=== PATIENT | female | born 1940 | race Caucasian/White ===

== ENCOUNTER 2017-08-25 09:15 | Outpatient (RCR) | payer SELFPAY ==
[2017-08-16 00:29] VITALS: BP 124/60; BP 144/70
== END 2017-09-15 23:59 ==
LOC: CR 09:15
PROVIDERS: Family Provider Family Medicine; PCP Family Medicine; Visit Provider Internal Medicine Cardiovascular Disease
DX: I25.10 Atherosclerotic heart disease of native coronary artery without angina pectoris (principal); I21.4 Non-ST elevation (NSTEMI) myocardial infarction
CPT/HCPCS: 93798

== ENCOUNTER → 2017-10-04 11:17 | Outpatient (CLI) | payer MEDICARE, SELFPAY ==
[2017-08-25 14:04] VITALS: BP 110/66; BMI 37.9
[2017-09-16 00:29] VITALS: BP 124/60; BP 144/70
== END ==
PROVIDERS: Family Provider Family Medicine; PCP Family Medicine; Visit Provider Internal Medicine Cardiovascular Disease
DX: I25.118 Atherosclerotic heart disease of native coronary artery with other forms of angina pectoris (principal)

== ENCOUNTER 2017-10-04 11:23 | Outpatient (RCR) | payer MEDICARE, SELFPAY ==
[2017-10-04 12:05] LABS: International Normalized Ratio 2.7; Prothrombin Time (Protime)PT. 27.3 SECONDS (11.7-14.9)
== END 2017-10-04 11:24 | disposition home or self-care (01) ==
LOC: LAB 11:23
PROVIDERS: Family Provider Family Medicine; PCP Family Medicine; Visit Provider Internal Medicine Cardiovascular Disease
DX: Z79.01 Long term (current) use of anticoagulants (principal)
CPT/HCPCS: 36415; 85610

== ENCOUNTER 2017-10-13 09:30 | Outpatient (RCR) | payer MEDICARE, SELFPAY | END 2017-10-13 23:59 | LOC: CR 09:30 | PROVIDERS: Family Provider Family Medicine; PCP Family Medicine; Visit Provider Internal Medicine Cardiovascular Disease | DX: I25.118 Atherosclerotic heart disease of native coronary artery with other forms of angina pectoris (principal); I25.798 Atherosclerosis of other coronary artery bypass graft(s) with other forms of angina pectoris | CPT/HCPCS: 36415; 85610; 92971; G0166 ==

== ENCOUNTER 2017-11-10 10:33 | Outpatient (RCR) | payer MEDICARE, SELFPAY ==
[2017-11-05 11:01] LABS: International Normalized Ratio 2.8; Prothrombin Time (Protime)PT. 29.3 SECONDS (11.7-14.9)
[2017-11-10 11:30] LABS: International Normalized Ratio 2.8; Prothrombin Time (Protime)PT. 29.8 SECONDS (11.7-14.9)
== END 2017-11-10 11:00 | disposition home or self-care (01) ==
LOC: LAB 10:33
PROVIDERS: Family Provider Family Medicine; PCP Family Medicine; Visit Provider Internal Medicine Cardiovascular Disease
DX: Z79.01 Long term (current) use of anticoagulants (principal); I25.118 Atherosclerotic heart disease of native coronary artery with other forms of angina pectoris; I25.798 Atherosclerosis of other coronary artery bypass graft(s) with other forms of angina pectoris
CPT/HCPCS: 36415; 85610; 92971; G0166

== ENCOUNTER 2017-11-12 09:30 | Outpatient (RCR) | payer MEDICARE, SELFPAY | END 2017-11-13 23:59 | LOC: CR 09:30 | PROVIDERS: Family Provider Family Medicine; PCP Family Medicine; Visit Provider Internal Medicine Cardiovascular Disease | DX: I25.118 Atherosclerotic heart disease of native coronary artery with other forms of angina pectoris (principal); I25.798 Atherosclerosis of other coronary artery bypass graft(s) with other forms of angina pectoris | CPT/HCPCS: 92971; G0166 ==

== ENCOUNTER 2017-11-24 09:30 | Outpatient (RCR) | payer MEDICARE, SELFPAY | END 2017-12-13 23:59 | LOC: CR 09:30 | PROVIDERS: Family Provider Family Medicine; PCP Family Medicine; Visit Provider Internal Medicine Cardiovascular Disease | DX: I25.118 Atherosclerotic heart disease of native coronary artery with other forms of angina pectoris (principal); I25.798 Atherosclerosis of other coronary artery bypass graft(s) with other forms of angina pectoris | CPT/HCPCS: 92971; G0166 ==

== ENCOUNTER 2017-11-24 10:30 | Outpatient (RCR) | payer MEDICARE, SELFPAY ==
[2017-11-24 11:09] LABS: International Normalized Ratio 3.3; Prothrombin Time (Protime)PT. 33.8 SECONDS (11.7-14.9)
== END 2017-11-24 11:00 | disposition home or self-care (01) ==
LOC: LAB 10:30
PROVIDERS: Family Provider Family Medicine; PCP Family Medicine; Visit Provider Internal Medicine Cardiovascular Disease
DX: Z79.01 Long term (current) use of anticoagulants (principal); I25.118 Atherosclerotic heart disease of native coronary artery with other forms of angina pectoris; I25.798 Atherosclerosis of other coronary artery bypass graft(s) with other forms of angina pectoris
CPT/HCPCS: 36415; 85610; 92971; G0166

== ENCOUNTER 2017-12-06 23:13 | Emergency (ER) | payer MEDICARE, SELFPAY ==
[2017-12-06 23:14] VITALS: O2SAT 99
[2017-12-06 23:15] VITALS: BP 152/115; PULSE 87; RESP 17; TEMP 37.1; O2SAT 96; BMI 41.5
--- NOTE | 2017-12-06 23:23 | RAD_ITS ---
STUDY: X-RAY CHEST REASON FOR EXAM: Female, 76 years old. Left chest pain TECHNIQUE: Single frontal view COMPARISON: August 14, 2017 FINDINGS: Stable sternotomy wires. The lungs are clear and expanded. There is no demonstrated pleural abnormality. Cardiomegaly. Normal mediastinum and pranay. Normal visualized pulmonary arteries. Normal visualized aortic arch and descending thoracic aorta. Normal visualized thoracic spine. Normal visualized ribs, clavicles, and shoulders. There is no demonstrated abnormality of the visualized soft tissue structures of the upper abdomen. RAD/Chest 1 View (Portable) IMPRESSION: Cardiomegaly. Electronically Signed: Omar Rdz DO at 23:47 EDT Tel [phone], Service support ,
--- NOTE | 2017-12-06 23:23 | EKG12_ITS ---
Test Reason : CP Blood Pressure : / mmHG Vent. Rate : 085 BPM Atrial Rate : 085 BPM P-R Int : 174 ms QRS Dur : 130 ms QT Int : 406 ms P-R-T Axes : 052 008 -08 degrees QTc Int : 483 ms Normal sinus rhythm Non-specific intra-ventricular conduction block Abnormal ECG Confirmed by KALE YADAV, MISTY ([id number]), fan mail editor DIANA STEWART ([id number] on 12/09/2017 12:49:03 PM Referred By: ZEINA Confirmed By:MISTY HENLEY MD
--- NOTE | 2017-12-06 23:28 | ED.DCSUM_ITS ---
- ER Visit Summary Date of Service: 12/06/17 Chief Complaint: Chest pain History of Present Illness: The patient is a 76 F presents to the emergency department chest pain. Patient has significant history of coronary vascular disease. 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 She does follow with both Dr. Patricia and Dr. Mendez. She states that tonight, she began to have some substernal chest heaviness into her back. She states it felt slightly different than prior IN. The patient did have a heart catheterization in 2017 that showed advanced disease that was not amenable to any intervention. She was told that she should not have any further heart catheterizations by her textile finisher. She states that her pain was improved after 1 nitro. She denies any recent worsening symptoms. She has had no intolerance of activity. She has had no exertional dyspnea. She does admit to some mild leg edema. She denies fever, chills, other systemic symptoms. Physical Examination: Vital signs reviewed General: Well-nourished, well-developed Head: Normocephalic, atraumatic Eyes: Pupils equal and reactive, extraocular muscles intact Neck, supple, no lymphadenopathy Heart: Regular rate and rhythm Respiratory: No distress, clear bilaterally Abdomen: Soft, nontender, nondistended, no peritoneal signs Back: Nontender Extremities: Nontender, 1+ edema, no cords Skin: Normal color no rash Neuro: Alert and oriented, no focal or lateralizing deficits Test Results: [] Emergency Department Course and Treatment: EKG was obtained on patient arrival. There is no evidence of acute ischemic change. Patient has remained pain- free. Initial cardiac enzymes are negative. INR is mildly supratherapeutic at 3.5, however the patient has had no bleeding. Her x-ray is unchanged. As the patient has had heart catheterization and has no vasculature that is amenable to intervention and she really does not want to proceed with any further intervention, I did discuss presentation with Dr. Mendez her textile finisher. He did recommend repeat cardiac enzymes at the 2 hour chris. He states as long as these are negative, he is comfortable with the patient being discharged with outpatient follow-up in the office. The patient would prefer this method. She does not want to be admitted. She underwent repeat cardiac enzymes. these continue to be negative. Patient is resting comfortably. At this time, the patient will be discharged to follow-up with Dr. Mendez as an outpatient. She will return with any return of pain or worsening symptoms. Treatment Plan: [] Disposition: [] Impression: 1. Chest pain This note was generated with [employer] dictation software. It may contain incorrect words, spelling, and punctuation that were not noted in review of the chart prior to signing ED Disposition - Plan for ED Patient: Chief Complaint: Chest Pain Instructions: ED Chest Pain Atypical Unkn Cause Referrals: Urbano Mendez MD [STAFF PHYSICIAN] - (call today)
[2017-12-06] MEDS: Aspirin 81 MG TAB.CHEW 324 MG PO (23:38)
[2017-12-06] MEDS: Ondansetron 4 MG/2 ML Vial IV (23:38)
[2017-12-06 23:41] VITALS: BP 113/83; PULSE 76
[2017-12-06 23:46] VITALS: BP 133/65; PULSE 75
[2017-12-06 23:50] LABS: Absolute Lymphocyte Count 1.68 X10^3/ul (0.83-4.51); Basophil# 0.02 X10^3/uL; Basophil% 0.3 % (0-1); Eosinophil# 0.08 X10^3/uL; Eosinophils% 1.3 % (0-5); Hematocrit 35.2 % (37-47); Hemoglobin 11.2 g/dl (12.0-15.0); Lymphocyte # 1.68 X10^3/ul (4.0); Lymphocyte % 26.3 % (19-41); Mean Corp Hgb Conc 31.8 g/gl (32-36); Mean Corpuscular Hgb 28.7 pg (27.0-32.0); Mean Corpuscular Volume 90.3 fL (81-99); Mean Platelet Vol. 10.2 fl (6.2-12.0); Monocyte# 0.61 X10^3/uL; Monocyte% 9.5 % (0-10); Neutrophil # 3.99 X10^3/uL (2.7-7.7); Neutrophil % 62.4 % (47-70); Platelet Count 245 K/mm3 (150-450); RBC Distribution Width CV 16.3 % (11.6-14.6); RBC Distribution Width SD 53.2 fl (35.1-43.9); White Blood Count 6.4 K/mm3 (4.4-11.0)
[2017-12-06 23:53] LABS: POSITIVE COUNT NO; POSITIVE DIFFERENTIAL NO; POSITIVE MORPHOLOGY NO
[2017-12-07] LABS: Prothrombin Time (Protime)PT. 35.5 SECONDS (11.7-14.9)
[2017-12-07 00:02] LABS: International Normalized Ratio 3.5
[2017-12-07 00:10] LABS: Anion Gap 5 (5-15); BUN 16 mg/dL (7-18); BUN/Creat Ratio 14.4 RATIO (10-20); Chloride 108 mmol/L (98-107); Creatinine, Serum 1.11 mg/dL (0.55-1.02); EST Glomerular Filtration Rate 50 mL/min (>60); Est Glom Filt Rate - Afr Amer 61 mL/min (>60); Estimated Creatinine Clearance 37.59 ml/min; Glucose 128 mg/dL (74-106); Potassium 3.9 mmol/L (3.5-5.1); Sodium Level 141 mmol/L (136-145)
--- NOTE | 2017-12-07 00:32 | EKG12_ITS ---
Test Reason : REPEAT Blood Pressure : / mmHG Vent. Rate : 078 BPM Atrial Rate : 078 BPM P-R Int : 192 ms QRS Dur : 130 ms QT Int : 426 ms P-R-T Axes : 062 000 -18 degrees QTc Int : 485 ms Normal sinus rhythm Left bundle branch block Abnormal ECG Confirmed by KALE YADAV, MISTY ([id number]), non linear editor DIANA STEWART ([id number]) on 12/09/2017 12:49:16 PM Referred By: ZEINA Confirmed By:MISTY HENLEY MD
[2017-12-07 00:50] VITALS: BP 120/54; PULSE 81; RESP 14; O2SAT 98
--- NOTE | 2017-12-07 00:52 | ED.RN ---
0001 DR ANDRES AWARE OF INR 3.5.
[2017-12-07 01:53] VITALS: BP 125/62; PULSE 79; RESP 20; O2SAT 96
[2017-12-07 02:50] VITALS: BP 127/63; PULSE 93; RESP 15; O2SAT 95
== END 2017-12-07 03:32 | disposition home or self-care (01) ==
LOC: ED 12-07 00:16
PROVIDERS: Emergency Provider Emergency Medicine; Family Provider Family Medicine; PCP Family Medicine
DX: R07.9 Chest pain, unspecified (principal); I25.10 Atherosclerotic heart disease of native coronary artery without angina pectoris; E11.9 Type 2 diabetes mellitus without complications; I10 Essential (primary) hypertension; E78.00 Pure hypercholesterolemia, unspecified; I25.2 Old myocardial infarction; Z95.1 Presence of aortocoronary bypass graft
CPT/HCPCS: 71045; 80048; 84484; 85025; 85610; 93005; 99285; A4216; J2405

== ENCOUNTER 2018-02-21 14:00 | Outpatient (RCR) | payer MEDICARE, SELFPAY ==
[2018-02-18 16:36] LABS: Prothrombin Time (Protime)PT. 47.5 SECONDS (11.7-14.9)
[2018-02-18 16:51] LABS: International Normalized Ratio 5.1
[2018-02-21 14:56] LABS: International Normalized Ratio 1.7; Prothrombin Time (Protime)PT. 19.9 SECONDS (11.7-14.9)
== END 2018-02-21 15:00 | disposition home or self-care (01) ==
LOC: LAB 14:00
PROVIDERS: Family Provider Family Medicine; PCP Family Medicine; Visit Provider Internal Medicine Cardiovascular Disease
DX: Z79.01 Long term (current) use of anticoagulants (principal)
CPT/HCPCS: 36415; 85610

== ENCOUNTER 2018-04-12 08:59 | Outpatient (RCR) | payer MEDICARE, SELFPAY ==
[2018-03-21 15:24] LABS: International Normalized Ratio 2.2; Prothrombin Time (Protime)PT. 24.7 SECONDS (11.7-14.9)
[2018-04-12 09:45] LABS: International Normalized Ratio 3.1; Prothrombin Time (Protime)PT. 32.5 SECONDS (11.7-14.9)
== END 2018-04-12 10:00 | disposition home or self-care (01) ==
LOC: LAB 08:59
PROVIDERS: Family Provider Family Medicine; PCP Family Medicine; Visit Provider Internal Medicine Cardiovascular Disease
DX: Z79.01 Long term (current) use of anticoagulants (principal)
CPT/HCPCS: 36415; 85610

== ENCOUNTER 2018-04-26 14:59 | Outpatient (RCR) | payer MEDICARE, SELFPAY ==
[2018-04-26 16:11] LABS: International Normalized Ratio 2.5; Prothrombin Time (Protime)PT. 26.8 SECONDS (11.7-14.9)
== END 2018-04-26 16:00 | disposition home or self-care (01) ==
LOC: LAB 14:59
PROVIDERS: Family Provider Family Medicine; PCP Family Medicine; Visit Provider Internal Medicine Cardiovascular Disease
DX: Z79.01 Long term (current) use of anticoagulants (principal); Z86.718 Personal history of other venous thrombosis and embolism
CPT/HCPCS: 36415; 85610

== ENCOUNTER 2018-06-24 11:58 | Outpatient (RCR) | payer MEDICARE, SELFPAY ==
[2018-06-17 15:21] LABS: International Normalized Ratio 2.4; Prothrombin Time (Protime)PT. 26.1 SECONDS (11.7-14.9)
[2018-06-24 13:05] LABS: International Normalized Ratio 2.2; Prothrombin Time (Protime)PT. 24.7 SECONDS (11.7-14.9)
== END 2018-07-15 09:34 | disposition home or self-care (01) ==
LOC: LAB 11:58
PROVIDERS: Family Provider Family Medicine; PCP Family Medicine; Referring Provider Internal Medicine Cardiovascular Disease; Visit Provider Internal Medicine Cardiovascular Disease
DX: Z79.01 Long term (current) use of anticoagulants (principal); Z86.718 Personal history of other venous thrombosis and embolism
CPT/HCPCS: 36415; 85610

== ENCOUNTER 2018-07-18 13:07 | Outpatient (RCR) | payer MEDICARE, SELFPAY ==
[2018-04-05 10:40] VITALS: BMI 37.0
[2018-07-18 16:31] LABS: International Normalized Ratio 2.1; Prothrombin Time (Protime)PT. 23.5 SECONDS (11.7-14.9)
--- OUTSIDE RECORDS SUMMARY | 2018-09-10 20:54 | XMS RPT_ITS ---
:1940 Author Organization [place] Support Name Relationship Address Phone DANNI LORENZO Unavailable [address] + [place] [address] DERBY AVIVA Unavailable [address] + [place] [address] R Unavailable Unavailable Unavailable CHAYITO LORENZOLESS Unavailable [address] + [place] [address] DERBY, AVIVA Unavailable [address] + [place] [address] R Unavailable Unavailable Unavailable BJ CORLESS Unavailable [address] [place] [phone] FLAQUITO DIEHL Unavailable [address] + [address] [place], [place] [phone] NOT GIVEN Unavailable Unavailable Unavailable BJ CORLESS Unavailable [address] Unavailable [place] [phone] MARIA LUISA FLAQUITO Unavailable [address] + [address] [place], [place] [phone] NOT GIVEN Unavailable Unavailable Unavailable BJ CORLESS Unavailable [address] + [place] [address] DERBY, AVIVA Unavailable [address] + [place] [address] R Unavailable Unavailable Unavailable BJ CORLESS Unavailable [address] Un[place] [phone] FLAQUITO DIEHL Unavailable [address] + [place], [place] [phone] NOT GIVEN Unavailable Unavailable Unavailable BJ CORLESS Unavailable [address] Unavailable [place] [phone] FLAQUITO DIEHL Unavailable [address] + [place], [place] [phone] NOT GIVEN Unavailable Unavailable Unavailable BJ, CORLESS Unavailable [address] + [place] [address] DERBY, AVIVA Unavailable [address] + [place] [address] R Unavailable Unavailable Unavailable BJ, CORLESS Unavailable [address] + [place] [address] DERBY, AVIVA Unavailable [address] + [place] [address] R Unavailable Unavailable Unavailable BJ, CORLESS Unavailable [address] + [place] [address] DERBY, AVIVA Unavailable [address] + [place] [address] R Unavailable Unavailable Unavailable BJ, CORLESS Unavailable [address] + [place] [address] DERBY, AVIVA Unavailable [address] + [place] [address] R Unavailable Unavailable Unavailable DERBY FLAQUITO Unavailable [address] + [place], [place] [phone] NOT GIVEN Unavailable Unavailable Unavailable BJ, CORLESS Unavailable [address] + [place] [address] DERBY, AVIVA Unavailable [address] + [place] [address] R Unavailable Unavailable Unavailable BJ, CORLESS Unavailable [address] + [place] [address] DERBY, AVIVA Unavailable [address] + [place] [address] R Unavailable Unavailable Unavailable BJ, CORLESS Unavailable [address] + [place] [address] DERBY, AVIVA Unavailable [address] + [place] [address] R Unavailable Unavailable Unavailable BJ, CORLESS Unavailable [address] + [place] [address] DERBY, AVIVA Unavailable . + [place] [address] R Unavailable Unavailable Unavailable BJ, CORLESS Unavailable [address] + [place] [address] DERBY, AVIVA Unavailable . + [place] [address] R Unavailable Unavailable Unavailable BJ, CORLESS Unavailable [address] + [place] [address] DERBY, AVIVA Unavailable . + [place] [address] R Unavailable Unavailable Unavailable BJ, CORLESS Unavailable [address] + [place] [address] DERBY, AVIVA Unavailable Unavailable + R Unavailable Unavailable Unavailable BJ, CORLESS Unavailable [address] + [place] [address] DERBY, AVIVA Unavailable Unavailable + R Unavailable Unavailable Unavailable BJ, CORLESS Unavailable [address] + [place] [address] DERBY, AVIVA Unavailable Unavailable + R Unavailable Unavailable Unavailable BJ, CORLESS Unavailable NA + [place], [place] DERBY, AVIVA Unavailable NA + [place], [place] R Unavailable Unavailable Unavailable DERBY, FLAQUITO Unavailable [address] + [place], [place] [phone] NOT GIVEN Unavailable Unavailable Unavailable BJ, CORLESS Unavailable [address] + [place] [address] DERBY, AVIVA Unavailable Unavailable + R Unavailable Unavailable Unavailable BJ, CORLESS Unavailable NA + [place], [place] DERBY, AVIVA Unavailable NA + [place], [place] R Unavailable Unavailable Unavailable BJ, CORLESS Unavailable NA + [place], [place] DERBY, AVIVA Unavailable NA + [place], [place] R Unavailable Unavailable Unavailable DERBY, FLAQUITO Unavailable [address] + [place], [place] [phone] NOT GIVEN Unavailable Unavailable Unavailable DANNI LORENZO Unavailable [address] + [place] [address] AVIVA DIEHL Unavailable Unavailable + R Unavailable Unavailable Unavailable Care Team Providers Name Role Phone OSIEL FLOWER Attending Unavailable Magdalene JOHNSON (PA-C) Attending Unavailable Magdalene JOHNSON (PA-C) Referring Unavailable OSIEL FLOWER Attending Unavailable OSIEL FLOWER Referring Unavailable OSIEL FLOWER Referring Unavailable SURAJ ALEJO Attending Unavailable CHING, OSIEL Ellison Referring Unavailable Magdalene JOHNSON (PA-C) Attending Unavailable Magdalene JOHNSON (PA-C) Referring Unavailable OSIEL FLOWER Attending Unavailable OSIEL FLOWER Referring Unavailable Magdalene JOHNSON (PA-C) Attending Unavailable Magdalene JOHNSON (PA-C) Attending Unavailable JACKIE RADER (PA) Attending Unavailable ROGELIO DALEY Referring Unavailable OSIEL FLOWER Attending Unavailable JACKIE RADER (PA) Attending Unavailable OSIEL FLOWER Referring Unavailable JACKIE RADER (PA) Attending Unavailable OSIEL FLOWER Referring Unavailable BRANDON ADAN Referring Unavailable BRANDON ADAN Attending Unavailable Shashank Marroquin Admitting Unavailable Shashank Marroquin Attending Unavailable Osiel Flower Primary Care Unavailable Shashank Marroquin Admitting Unavailable Shashank Marroquin Attending Unavailable Osiel Flower Primary Care Unavailable CRYSTAL SIMON DO Admitting Unavailable CRYSTAL SIMON DO Attending Unavailable OSIEL FLOWER Referring Unavailable CRYSTAL SIMON DO Primary Care Unavailable OSIEL FOLWER Consulting Unavailable PROVIDER, UNKNOWN Consulting Unavailable BEN NIX Admitting Unavailable BEN NIX Attending Unavailable OSIEL FLOWER Referring Unavailable BEN NIX Primary Care Unavailable OSIEL FLOWER Consulting Unavailable PROVIDER, UNKNOWN Consulting Unavailable DR GAB ROLLINS Admitting Unavailable AYO, DR GAB Jeong Attending Unavailable OSIEL FLOWER Referring Unavailable DR GAB ROLLINS Primary Care Unavailable OSIEL FLOWER Consulting Unavailable PROVIDER, UNKNOWN Consulting Unavailable GURINDER CURIEL DO Admitting Unavailable GURINDER CURIEL DO Attending Unavailable CHING, OSIEL Referring Unavailable GURINDER CURIEL DO Primary Care Unavailable [facility], OSIEL Consulting Unavailable PROVIDER, UNKNOWN Consulting Unavailable ROLLINS, DR GAB Jeong Admitting Unavailable ROLLINS, DR GAB Jeong Attending Unavailable [facility], OSIEL Referring Unavailable ROLLINS, DR GAB Jeong Primary Care Unavailable [facility], OSIEL Consulting Unavailable PROVIDER, UNKNOWN Consulting Unavailable HLIVKO, BRANDON YADAV Admitting Unavailable HLIVKO, BRANDON YADAV Attending Unavailable HLIVKO, BRANDON YADAV Primary Care Unavailable [facility], OSIEL Consulting Unavailable PROVIDER, UNKNOWN Consulting Unavailable ROLLINS, DR GAB Jeong Admitting Unavailable ROLLINS, DR GAB Jeong Attending Unavailable CHING, OSIEL Referring Unavailable ROLLINS, DR GAB Jeong Primary Care Unavailable [facility], OSIEL Consulting Unavailable PROVIDER, UNKNOWN Consulting Unavailable MoodGallo mart Attending Unavailable MoodisGallo paz Referring Unavailable [place] [place] Primary Care Unavailable Ashkan Hanson Consulting Unavailable MoodisGallo paz Attending Unavailable [facility] Primary [facility] Unavailable Ashkan Hanson Consulting Unavailable Gallo Patricia Referring Unavailable Moodisjackson, Gallo Attending Unavailable MoodisGallo paz Referring Unavailable [place], [facility] [place] Primary Care Unavailable MoodisGallo paz Attending Unavailable [place], Osiel Referring Unavailable Moodispamadai, Gallo Attending Unavailable [place], [facility] [place] Primary Care Unavailable Moodbarron, Gallo Attending Unavailable MoodisGallo paz Referring Unavailable [place], [facility] [place] Primary Care Unavailable Moodisjackson, Gallo Attending Unavailable MoodisGallo paz Referring Unavailable [place], [facility] [place] Primary Care Unavailable Moodbarron, Gallo Attending Unavailable MoodisGallo paz Referring Unavailable [place], [facility] [place] Primary Care Unavailable Ashkan Hanson Consulting Unavailable Moodisjackson, Gallo Attending Unavailable MoodisGallo paz Referring Unavailable [facility] Primary Care Unavailable Moodisjackson, Gallo Attending Unavailable MoodispaGallo aj Referring Unavailable [facility] Primary Care Unavailable Ashkan Hanson Consulting Unavailable Celia Salas Attending Unavailable Bre Marinelli Attending Unavailable [place], Osiel Referring Unavailable [place], [facility] [place] Primary Care Unavailable [place], [facility] [place] Primary Care Unavailable Kyrie Jacobs Attending Unavailable MoodisGallo paz Attending Unavailable MoodisGallo paz Referring Unavailable [facility] Primary Care Unavailable Moodbarron, Gallo Attending Unavailable MoodisGalol paz Referring Unavailable [place], [facility] [place] Primary Care Unavailable Dana Hansonic Consulting Unavailable Bre Bone Attending Unavailable [place]isp[place], Gallo Attending Unavailable [place], Gallo Referring Unavailable [place], Osiel Primary Care Unavailable Jopperi, Ashkan Consulting Unavailable Bre Marinelli Attending Unavailable Ching, Osiel Referring Unavailable Ching, Osiel Primary Care Unavailable Moodispaw, Gallo Attending Unavailable [place], Gallo Referring Unavailable [place], Osiel Primary Care Unavailable Jopperi, Ashkan Consulting Unavailable Moodisjackson, Gallo Attending Unavailable Moodispaw, Gallo Referring Unavailable [place], Osiel Primary Care Unavailable Jopperi, Ashkan Consulting Unavailable [place]aw, Gallo Attending Unavailable [place], Gallo Referring Unavailable Ching, Osiel Primary Care Unavailable Jopperi, Ashkan Consulting Unavailable PROBLEMS PROBLEMS DATE TYPE CONDITION / CODE ATTENDING STATUS SOURCE 08/22/2018 Unknown 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, 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 / Hospital Z79.01(ICD-10) Repository 07/27/2018 Active Unilateral primary NA Active [place] osteoarthritis, left Clinic Main knee / [place] M17.12(ICD-10) Repository 07/27/2018 Active Pain in left knee / NA Active [place] M25.562(ICD-10) Clinic Main [place] Repository 07/27/2018 Active Other chronic pain / NA Active [place] G89.29(ICD-10) [facility] Main [place] Repository 08/15/2018 Unknown Z86.718 - Personal [place], Active [place] history of other [facility] venous thrombosis Hospital and embolism / Repository Z86.718(ICD-10) 06/02/2018 Admitting Pain in left leg / ROLLINS, DR ALEJANDRA Active [facility] Diagnosis Z64907(ICD-10) [facility] Repository 06/02/2018 Principle Pain in left knee / ROLLINS, DR ALEJANDRA Active [facility] Diagnosis F17584(ICD-10) [facility] Repository 06/02/2018 Secondary Unspecified ROLLINS, DR ALEJANDRA Active [facility] Diagnosis osteoarthritis, [facility] unspecified site / Hospital M1990(ICD-10) Repository 06/02/2018 Secondary Obesity, unspecified ROLLINS, DR ALEJANDRA Active [facility] Diagnosis / E669(ICD-10) [facility] Repository 06/02/2018 Secondary Heart failure, ROLLINS, DR ALEJANDRA Active [facility] Diagnosis unspecified / [facility] I509(ICD-10) Hospital Repository 06/02/2018 Secondary Atherosclerotic ROLLINS, 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 Repository angina pectoris / I2510(ICD-10) 06/02/2018 Secondary Essential (primary) ROLLINS, DR ALEJANDRA Active [facility] Diagnosis hypertension / [facility] I10(ICD-10) Hospital Repository 06/02/2018 Secondary Presence of ROLLINS, 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 [facility] graft / Z951(ICD-10) Hospital Repository 06/02/2018 Secondary Presence of right ROLLINS, DR ALEJANDRA Active [facility] Diagnosis artificial knee C [facility] joint / Hospital L14748(ICD-10) Repository 04/12/2018 Active Pain in right hand / NA Active [place] M79.641(ICD-10) Clinic Main [place] Repository 04/05/2018 Unknown I25.10 - Marinelli, Active [place] 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 Repository artery without angina pectoris / I25.10(ICD-10) 04/05/2018 Unknown I10 - Essential Marinelli, Active [place] (primary) [facility] hypertension / Hospital I10(ICD-10) Repository 04/05/2018 Unknown E78.00 - Pure Marinelli, Active [place] hypercholesterolemia [facility] , unspecified / Hospital E78.00(ICD-10) Repository 03/07/2018 Active Unknown / NA Active [facility] UNK(Unknown) Clinic Main [place] Repository 03/04/2018 Active Pain in right foot / NA Active [place] M79.671(ICD-10) Clinic Main [place] Repository 03/04/2018 Active Pain in left foot / NA Active [place] M79.672(ICD-10) Clinic Main [place] Repository 09/30/2012 Active Hyperlipidemia, NA Active [place] unspecified / Clinic Main E78.5(ICD-10) [place] Repository 02/22/2018 Active Type 2 diabetes NA Active [facility] mellitus with Clinic Main unspecified [place] complications / Repository E11.8(ICD-10) 02/22/2018 Active Essential (primary) NA Active [place] hypertension / Clinic Main I10(ICD-10) [place] Repository 12/14/2017 Unknown I48.0 - Paroxysmal [place], Active [place] atrial fibrillation [facility] / I48.0(ICD-10) Hospital Repository 12/14/2017 Unknown I25.118 - [place], Active [place] Atherosclerotic [facility] heart disease of [facility] [place] coronary Repository artery with other forms of angina pectoris / I25.118(ICD-10) PROCEDURES PROCEDURES No Procedure Records FoundRESULTS RESULTS OBSOLETE Observed: 09/05/2018 Status: COMPLETED Source: [place] 12:00 AM [facility] REPOSITORY Refill ([facility]) BRITTANY LORENZO ([id number]) 1940 F Date Time Provider Department 09/05/18 OSIEL FLOWER [facility] During your visit today, we recorded the following information about you: Magdalene Ann RN 09/05/2018 8:26 AM Signed Patient has been identified by name and date of : Yes Daughter- Aviva Diehl phones for refill(s): Pending Prescriptions Disp Refills TIZANIDINE 4 MG TABLET 20 tablet 0 Sig: Take 1 tablet by mouth every 6 hours as needed. SAMUEL: No Date of last office visit with pcp: 05-30-18. Next appt: none Last Rx written 08-26-18 for #20 - Aviva reports patient took all of those. Last 2 Encounter Wt Readings: Date: Wt: 07/27/2018 99.8 kg (220 lb) 05/17/2018 100.7 kg (222 lb) Previous labs/tests for medication: Blood Counts: WBC (k/uL) Date Value 07/20/2017 7.70 RBC (m/uL) Date Value 07/20/2017 4.26 Hematocrit (%) Date Value 07/20/2017 38.9 Hemoglobin (g/dL) Date Value 07/20/2017 11.8 Platelet Count (k/uL) Date Value 07/20/2017 279 Liver Function: ALT (U/L) Date Value 02/22/2018 16 AST (U/L) Date Value 02/22/2018 24 Please advise. Thank you. Magdalene Ann RN Allergies As of Date: 09/05/2018 Noted Allergy Reaction WILDA INHIBITORS 05/23/2014 3 - Cough Comments: WILDA cough DOXYCYCLINE 01/22/2012 7 - Swelling Comments: Tongue and feet KEFLEX (CEPHALEXIN) 07/16/2014 11 - Vomiting PENICILLINS 01/22/2011 2 - Rash Comments: edema PERCOCET (OXYCODONE-ACETAMINOPHEN)03/29/2013 8 - GI Upset Comments: Patient has taken, needs to eat prior to taking. SULFA (SULFONAMIDE ANTIBIOTICS) 01/22/2011 2 - Rash TETRACYCLINE 01/22/2011 2 - Rash Comments: difficulty breathing Date Reviewed: 07/27/2018 Reviewed by: Misty Fry Ma - Fully Assessed Reason for Visit: Refill Request [94] Order(s):tiZANidine (ZANAFLEX) 4 mg tabletTake 1 tablet by mouth every 6 hours as needed.Disp: 20 tabletRfl: 0 Prescriptions as of 09/05/2018 Sig: TIZANIDINE 4 MG TABLET Take 1 tablet by mouth every * TIZANIDINE 4 MG TABLET Take 1 tablet by mouth every * ONDANSETRON 4 MG DISINTEGRATI* Take 1 tablet by mouth every * LEG BRACE Left knee elastic knee suppor* COENZYME Q10 10 MG CAPSULE Take 1 capsule by mouth once * FOLIC ACID 1 MG TABLET Take 1 tablet by mouth once d* DICLOFENAC 1 % TOPICAL GEL Apply 4 g to affected area fo* COMPOUNDED PRESCRIPTION Powerstep gel insert (M77.41* AMITRIPTYLINE 25 MG TABLET Take 1 tablet by mouth daily * GABAPENTIN 600 MG TABLET Take 1 tablet by mouth four t* ESTRADIOL 0.01% (0.1 MG/GRAM)* Apply pea-sized amount to per* OMEPRAZOLE 20 MG CAPSULE,YANETH* Take 1 capsule by mouth twice* WARFARIN 5 MG TABLET Per cardiology Patient taking differently: Per cardiology: 4 mg 6 days a* METOPROLOL TARTRATE 100 MG TA* Take 100 mg by mouth once melanie* ISOSORBIDE MONONITRATE ER 120* Take 120 mg by mouth once melanie* LOSARTAN 50 MG TABLET Take 1 tablet by mouth once d* Patient taking differently: Take 100 mg by mouth once melanie* NITROGLYCERIN 0.4 MG SUBLINGU* Dissolve 0.4 mg under the ton* WARFARIN 4 MG TABLET Per Cardiology: 4 mg 6 days * VITAMIN B-12 ORAL Take by mouth. * ROSUVASTATIN 40 MG TABLET Take 40 mg by mouth once alondra* * FUROSEMIDE 40 MG TABLET Take 40 mg by mouth once alondra* * ASPIRIN 81 MG TABLET Take 81 mg by mouth. * CALCIUM + D ORAL Take by mouth. Problem List As Of Date 09/05/2018 Noted Resolved Diaphragmatic hernia without mention of obstruc*INVALID FOR* Acute gastritis without mention of hemorrhage [*INVALID FOR* Dysphagia, unspecified [R13.10] INVALID FOR*11/23/2016 Knee pain [M25.569] INVALID FOR* History of DVT (deep vein thrombosis) [Z86.718] More... Coronary artery disease [I25.10] More... Peripheral neuropathy [G62.9] More... Diabetes mellitus, type 2 [E11.9] Hypertension [I10] Hyperlipidemia [E78.5] Depression [F32.9] Backache, unspecified [M54.9] Arthritis of knee [M17.10] INVALID FOR* Diabetic retinopathy, nonproliferative, moderat* Osteoporosis [M81.0] INVALID FOR* Lumbar radiculopathy [M54.16] INVALID FOR*12/19/2014 DDD (degenerative disc disease), lumbar [M51.36]INVALID FOR*12/19/2014 Lumbar spondylosis [M47.816] INVALID FOR*02/27/2015 Degeneration of lumbar or lumbosacral intervert*INVALID FOR* Lumbago [M54.5] INVALID FOR*12/19/2014 Hip pain [M25.559] INVALID FOR* Lumbosacral neuritis [M54.17] INVALID FOR* Low back pain [M54.5] INVALID FOR*02/27/2015 Enthesopathy of hip region [M76.899] INVALID FOR* Right-sided low back pain with right-sided scia*INVALID FOR* Osteoarthritis of spine with radiculopathy, lum*INVALID FOR* Oropharyngeal dysphagia [R13.12] INVALID FOR* Obesity, Class II, BMI 35-39.9 [E66.9] INVALID FOR* Cardiomyopathy (HCC) [I42.9] Prescriptions ordered this encounter Disp Refills Start End TIZANIDINE 4 MG TABLET 20 t* 0 09/05/2018 Route: ORAL Sig: Take 1 tablet by mouth every 6 hours as needed. Medications Discontinued During This Encounter tiZANidine (ZANAFLEX) 4 mg tablet 20 t* 0 08/26/2018 09/05/2018 Route: ORAL Sig: Take 1 tablet by mouth every 6 hours as needed. Disc: Reason for discontinue is not on file. Encounter Status:Closed by Magdalene JOHNSON PA-C on 09/05/18 OBSOLETE Observed: 08/26/2018 Status: COMPLETED Source: [place] 12:00 AM [facility] REPOSITORY [facility] BRITTANY LORENZO ([id number]) 1940 F Date Time Provider Department 08/26/18 OSIEL FLOWER [facility] During your visit today, we recorded the following information about you: Leonie Villafuerte LPN 08/26/2018 9:50 AM Signed Patient has been identified by name and date of : Yes Patient phones for refill(s): Pending Prescriptions Disp Refills TIZANIDINE 4 MG TABLET 20 tablet 0 Sig: Take 1 tablet by mouth every 6 hours as needed. SAMUEL: No Date of last office visit in primary care: 05/30/2018 Last 2 Encounter Wt Readings: Date: Wt: 07/27/2018 99.8 kg (220 lb) 05/17/2018 100.7 kg (222 lb) Previous labs/tests for medication: Not applicable Please advise. Thank you. Leonie Villafuerte LPN Allergies As of Date: 08/26/2018 Noted Allergy Reaction WILDA INHIBITORS 05/23/2014 3 - Cough Comments: WILDA cough DOXYCYCLINE 01/22/2012 7 - Swelling Comments: Tongue and feet KEFLEX (CEPHALEXIN) 07/16/2014 11 - Vomiting PENICILLINS 01/22/2011 2 - Rash Comments: edema PERCOCET (OXYCODONE-ACETAMINOPHEN)03/29/2013 8 - GI Upset Comments: Patient has taken, needs to eat prior to taking. SULFA (SULFONAMIDE ANTIBIOTICS) 01/22/2011 2 - Rash TETRACYCLINE 01/22/2011 2 - Rash Comments: difficulty breathing Date Reviewed: 07/27/2018 Reviewed by: Misty Fry Ma - Fully Assessed Reason for Visit: Refill Request [94] Order(s):tiZANidine (ZANAFLEX) 4 mg tabletTake 1 tablet by mouth every 6 hours as needed.Disp: 20 tabletRfl: 0 Prescriptions as of 08/26/2018 Sig: TIZANIDINE 4 MG TABLET Take 1 tablet by mouth every * TIZANIDINE 4 MG TABLET Take 1 tablet by mouth every * ONDANSETRON 4 MG DISINTEGRATI* Take 1 tablet by mouth every * LEG BRACE Left knee elastic knee suppor* COENZYME Q10 10 MG CAPSULE Take 1 capsule by mouth once * FOLIC ACID 1 MG TABLET Take 1 tablet by mouth once d* DICLOFENAC 1 % TOPICAL GEL Apply 4 g to affected area fo* COMPOUNDED PRESCRIPTION Powerstep gel insert (M77.41* AMITRIPTYLINE 25 MG TABLET Take 1 tablet by mouth daily * GABAPENTIN 600 MG TABLET Take 1 tablet by mouth four t* ESTRADIOL 0.01% (0.1 MG/GRAM)* Apply pea-sized amount to per* OMEPRAZOLE 20 MG CAPSULE,YANETH* Take 1 capsule by mouth twice* WARFARIN 5 MG TABLET Per cardiology Patient taking differently: Per cardiology: 4 mg 6 days a* METOPROLOL TARTRATE 100 MG TA* Take 100 mg by mouth once melanie* ISOSORBIDE MONONITRATE ER 120* Take 120 mg by mouth once melanie* LOSARTAN 50 MG TABLET Take 1 tablet by mouth once d* Patient taking differently: Take 100 mg by mouth once melanie* NITROGLYCERIN 0.4 MG SUBLINGU* Dissolve 0.4 mg under the ton* WARFARIN 4 MG TABLET Per Cardiology: 4 mg 6 days * VITAMIN B-12 ORAL Take by mouth. * ROSUVASTATIN 40 MG TABLET Take 40 mg by mouth once alondra* * FUROSEMIDE 40 MG TABLET Take 40 mg by mouth once alondra* * ASPIRIN 81 MG TABLET Take 81 mg by mouth. * CALCIUM + D ORAL Take by mouth. Problem List As Of Date 08/26/2018 Noted Resolved Diaphragmatic hernia without mention of obstruc*INVALID FOR* Acute gastritis without mention of hemorrhage [*INVALID FOR* Dysphagia, unspecified [R13.10] INVALID FOR*11/23/2016 Knee pain [M25.569] INVALID FOR* History of DVT (deep vein thrombosis) [Z86.718] More... Coronary artery disease [I25.10] More... Peripheral neuropathy [G62.9] More... Diabetes mellitus, type 2 [E11.9] Hypertension [I10] Hyperlipidemia [E78.5] Depression [F32.9] Backache, unspecified [M54.9] Arthritis of knee [M17.10] INVALID FOR* Diabetic retinopathy, nonproliferative, moderat* Osteoporosis [M81.0] INVALID FOR* Lumbar radiculopathy [M54.16] INVALID FOR*12/19/2014 DDD (degenerative disc disease), lumbar [M51.36]INVALID FOR*12/19/2014 Lumbar spondylosis [M47.816] INVALID FOR*02/27/2015 Degeneration of lumbar or lumbosacral intervert*INVALID FOR* Lumbago [M54.5] INVALID FOR*12/19/2014 Hip pain [M25.559] INVALID FOR* Lumbosacral neuritis [M54.17] INVALID FOR* Low back pain [M54.5] INVALID FOR*02/27/2015 Enthesopathy of hip region [M76.899] INVALID FOR* Right-sided low back pain with right-sided scia*INVALID FOR* Osteoarthritis of spine with radiculopathy, lum*INVALID FOR* Oropharyngeal dysphagia [R13.12] INVALID FOR* Obesity, Class II, BMI 35-39.9 [E66.9] INVALID FOR* Cardiomyopathy (HCC) [I42.9] Prescriptions ordered this encounter Disp Refills Start End TIZANIDINE 4 MG TABLET 20 t* 0 08/26/2018 Route: ORAL Sig: Take 1 tablet by mouth every 6 hours as needed. Medications Discontinued During This Encounter tiZANidine (ZANAFLEX) 4 mg tablet 20 t* 0 08/11/2018 08/26/2018 Route: ORAL Sig: Take 1 tablet by mouth every 6 hours as needed. Disc: Reason for discontinue is not on file. Encounter Status:Closed by CHING, OSIEL J MD on 08/26/18 PROTHROMBIN TIME W/INR Collected: 08/22/2018 Status: F Source: [place] 1:21 PM [facility] REPOSITORY TYPE CODE TESTS RESULT OUT OF RANGE REFERENCE UNITS LAB L300.4150 11.7-14.9 SECONDS High PROTIME 23.5 LAB L300.4200 Normal INR 2.1 Performed By: #### L300.3900 #### [facility] [address] [place], [address] PROGRESS Observed: 07/27/2018 Status: COMPLETED Source: [place] 3:38 PM [facility] [place] REPOSITORY HNO ID: [id number] Author: Brandon Adan Service: (none) Author Type: Physician Type: Progress Notes Filed: 07/27/2018 4:02 PM Note Text: CONSULT ORTHOPAEDIC: KNEE PRIMARY CARE PHYSICIAN: Osiel Flower MD REFERRING PROVIDER: SELF ASSESSMENT AND PLAN Impression: Left Knee Severe Degenerative Osteoarthritis, Primary Brittany Lorenzo has radiograph and physical exam evidence of degenerative joint disease and wishes to pursue surgery. This patient appears to have sufficient symptoms to warrant surgical intervention and is an appropriate candidate for left Primary Total Knee Arthroplasty as evidenced by six months of unsuccessful non-operative treatment as outlined in the HPI below and progressive symptoms. Progressive Symptoms Include: Pain impacting sleep or causing fatigue Pain impacting work Pain worsened by weight bearing Pain effecting living situation Pain limiting ability to stay fit and healthy. This patient has the following risk factors requiring the use of antibiotic cement: None, non-antibiotic cement will be used. We had a lengthy discussion regarding the risk and benefit of surgery, the alternatives, limitations and personnel involved. These included but were not limited to infection, persistent pain, instability, nerve injury, blood clots, and medical complications. We also discussed the pre-operative course, surgery itself and rehabilitation. Alejandra-operative blood management and transfusion issues were discussed, and options clearly outlined. The patient has consented to the use of the banked allogenic blood if medically necessary. The patient has elected to schedule surgery at this time or intends to call the office with a surgical date. Shared decision making occurred while obtaining informed consent. The patient will be scheduled for a pre-operative education class at which time they will have their nasal swab completed and will be given CHG cloths along with the verbal and written instructions for their use. The patient has been ordered: Physical therapy CONSULTS: Cardiology Consult for cardiac clearance for TKA . [place] DVT scan ACTIVE PROBLEM LIST Diaphragmatic Hernia Without Mention of Obstruction Or Gangrene Acute Gastritis Without Mention of Hemorrhage Knee Pain History of Dvt (Deep Vein Thrombosis) Coronary Artery Disease Peripheral Neuropathy Diabetes Mellitus, Type 2 (Hcc) Hypertension Hyperlipidemia Depression Backache, Unspecified Arthritis of Knee Diabetic Retinopathy, Nonproliferative, Moderate (Hcc) Osteoporosis Degeneration of Lumbar Or Lumbosacral Intervertebral Disc Hip Pain Lumbosacral Neuritis Enthesopathy of Hip Region Right-Sided Low Back Pain With Right-Sided Sciatica Osteoarthritis of Spine With Radiculopathy, Lumbar Region Oropharyngeal Dysphagia Obesity, Class II, Bmi 35-39.9 Discussed issues, options and periop scheduling: Rec left TKA Anesthesia Spinal and regional block / catheter (preferred) Educational Educational packet provided Periop antibiotics Primary knee: Allergic to PCN --> Vanco, Cipro (per protocol) Home situation Lives with spouse in one floor house Postop rehab Inpatient at [facility] Post[facility] rehab Home with services. [facility] preferred. Outpatient rehab [facility] [place] Out of work Anticipate at least 6 weeks and then graduated return to full activities and duties by 12 weeks postop No driving x 6 weeks Preop consultations: Dentist (letter to be sent) DVT, [place], Cardiology preop PT PERC Today with HQ if not already completed Within 6 months of surgical date or needs updating Implant plan: CR v T in P Cement No Antibiotics TXA IA DVT pending recommendations Consent: TKA The risks, benefits and anticipated outcomes of the procedure, the risks and benefits of the alternatives to the procedure, including but not limited to blood clots, infection and failure to relieve pain, implant failure, leg length inequality and nerve damage; and the roles and tasks of the personnel to be involved were discussed with the patient and the patient consents to the procedure and agrees to proceed. I verify that I personally obtained the patient's consent. Schedule in near future, patient will contact office for arrangements. More than 50% of this 60 minute visit were spent counseling the patient. RTC August 2018 to review consults and details 6 months from injection is earliest scheduling December 2018 Gus Adan MD SUBJECTIVE CHIEF COMPLAINT: Knee Pain HPI: Brittany Lorenzo is a 77 year old female here for evaluation and management of left knee pain. She has had progressive problems with the knee(s) constantly over the past 10 year(s) interfering with activities which include exercise, walking, standing for prolonged periods of time, climbing stairs and safety-increased risk for fall. The problem began limiting activities 3+ years ago. Here with daughter and daughter. Currently the pain in the joint is rated at 10 out of 10 with minimal activity. The pain is constant and is located along the inside aspect. The pain is described as aching and stabbing. Relieving factors include ambulatory device and rest. There is no specific incident that brought about this pain. She also complains of weakness and stiffness. Body mass index is 36.61 kg/m?. Healthquest score: 4 FUNCTIONAL STATUS: Climb a flight of stairs or walk up a hill (5.50 METs) Preoperative Ambulatory Status: Independent Community Distances Number of Entry Steps: 2 Bedroom Location: First floor Bathroom Location: First floor Caregiver Assistance: Consistent/Live-In (5-7 days/wk) Home Location: Up to 150 miles PREVIOUS TREATMENTS: Attempted Weight Loss Medical Treatments: Intolerant of NSAIDS, Steroid Injections Left Knee, Viscosupplementation Left Knee Physical Therapy: Use of Ambulatory Aid, Shoe Wear, Braces, Orthotics, etc. and Activities Modified Previous Surgery: Knee Arthroscopy REVIEW OF SYSTEMS: PAIN ASSESSMENT: See HPI. MUSCULOSKELETAL: See HPI. Surgical Risk Factors: Coronary Artery Disease, Chronic Narcotic Use, Dental Disease, Diabetes, Heart Disease, History of DVT, Peripheral Vascular History and Psychiatric PAST MEDICAL HISTORY Diagnosis Date - Backache, unspecified In pain management with Dr. Reyna - Cardiomyopathy (HCC) - Compression fracture of L4 lumbar vertebra ([facility]) Dr. Polo prescribing pain meds - Coronary artery disease Dr Mendez; s/p CABG, no IA - Depression - Diabetes mellitus, type 2 (HCC) - Diabetic retinopathy, nonproliferative, moderate (HCC) - Hiatal hernia - History of DVT (deep vein thrombosis) cardiology manages, coumadin. after CABG(PE), (L leg) heart cath, and (R leg) knee surgery - Hyperlipidemia - Hypertension - Pain management Sees Dr. Reyna at [facility] for back - Peripheral neuropathy - Shortness of breath PAST SURGICAL HISTORY Procedure Laterality Date - APPENDECTOMY - BREAST BIOPSY left, aspiration and excision of cyst - COLONOSCOP W/ OR W/O BRSH SPEC 12 years ago Colonoscopy - COLONOSCOP W/ OR W/O BRSH SPEC 03/30/11 - EGD W/O BRSH SPECIMEN W/BX 03/30/11 - EGD W/O OR W/BRUSH/WASH 11/22/2013 EGD - EGD W/O OR W/BRUSH/WASH 04/24/2016 EGD - ESOPHAGEAL DILATATION 03/30/11 - HEART CATHETERIZATION - HEART SURGERY HX - LAPAROSCOPIC CHOLEYCYSTECTOMY 1997 Cholecystectomy, lap - PAST SURGICAL HISTORY OF 195 bowel surgery, perforation - PAST SURGICAL HISTORY OF Left 2000 Left knee arthroscopy, Dr. Hussein - PAST SURGICAL HISTORY OF 07/26/14 lumbar pain injections - REDUCTION OF LARGE BREAST 1995 - REPAIR HEART WND W CP BYPASS 2002 bypass x 6, Dr. Becerra/[facility] - TOTAL ABDOM HYSTERECTOMY 1990 TAT[place]NA/BSO; benign menorrhagia, endometriosis - TOTAL KNEE REPLACEMENT Right 2006 right partial knee replacement/ Dr. Hussein FAMILY HISTORY Problem Relation Age of Onset - Heart Mother - Cancer Father of esophageal cancer Social History Marital status: Spouse name: Years of education: Number of children: 2 Occupational History Occupation Employer [employer] Social History Main Topics Smoking status: Never Smoker Smokeless tobacco: Never Used Alcohol use: No Drug use: No Sexual activity: No ALLERGIES: Wilda Inhibitors; Doxycycline; Keflex [Cephalexin]; Penicillins; Percocet [Oxycodone-Acetaminophen]; Sulfa (Sulfonamide Antibiotics); Tetracycline MEDICATIONS: amitriptyline (ELAVIL) 25 mg tablet Take 1 tablet by mouth daily at bedtime. Aspirin 81 mg ORAL Tab Take 81 mg by mouth. CALCIUM CARBONATE/VITAMIN D3 (CALCIUM + D ORAL) Take by mouth. COMPOUNDED PRESCRIPTION Powerstep gel insert(M77.41, M77.42) Metatarsalgia of both feet (primary encounter diagnosis)(M25.579) Pain in joint involving ankle and foot, unspecified laterality(M21.41, M21.42) Pes planus of both feet CYANOCOBALAMIN, VITAMIN B-12, (VITAMIN B-12 ORAL) Take by mouth. diclofenac sodium (VOLTAREN) 1 % topical gel Apply 4 g to affected area four times daily. estradiol (ESTRACE) 0.01 % (0.1 mg/gram) vaginal cream Apply pea-sized amount to perineum and 1 applicator vaginally twice a week for atrophic vaginitis. folic acid 1 mg tablet Take 1 tablet by mouth once daily. furosemide (LASIX) 40 mg tablet Take 40 mg by mouth once daily. gabapentin (NEURONTIN) 600 mg tablet Take 1 tablet by mouth four times daily for 90 days. isosorbide mononitrate ER (IMDUR) 120 mg 24 hr tablet Take 120 mg by mouth once daily. Leg Brace (ELASTIC KNEE SUPPORT) misc Left knee elastic knee support. losartan (COZAAR) 50 mg tablet Take 1 tablet by mouth once daily. metoprolol tartrate, short acting, (LOPRESSOR) 100 mg tablet Take 100 mg by mouth once daily. nitroglycerin sublingual (NITROQUICK) 0.4 mg SL tablet Dissolve 0.4 mg under the tongue every 5 minutes as needed. Up to 3 max omeprazole (PRILOSEC) 20 mg capsule Take 1 capsule by mouth twice daily. ondansetron orally disintegrating (ZOFRAN ODT) 4 mg disintegrating tablet Take 1 tablet by mouth every 6 hours as needed for Nausea/Vomiting. rosuvastatin (CRESTOR) 40 mg tablet Take 40 mg by mouth once daily. tiZANidine (ZANAFLEX) 4 mg tablet Take 1 tablet by mouth every 6 hours as needed. tiZANidine (ZANAFLEX) 4 mg tablet Take 1 tablet by mouth every 8 hours as needed. ubidecarenone Q-10 (CO Q-10) 10 mg cap Take 1 capsule by mouth once daily. warfarin (COUMADIN) 5 mg tablet Per cardiology warfarin 4 mg tablet Per Cardiology: 4 mg 6 days a week and 2 mg once a week. PHYSICAL EXAM: Ht 165.1 cm (5' 5) Wt 99.8 kg (220 lb) BMI 36.61 kg/m? All other systems deferred. GENERAL: Obese HABITUS: Obese GAIT: Normal, the patient did not have trouble getting onto the exam table. KNEE EXAM: Left: Alignment: Neutral Range of motion is 10 degrees in extension and 90 degrees of flexion. Extension La-20 degrees Pain with ROM: Yes Effusion: Slight Tender to the palpation of Medial femoral condyle Pain with patellar compression: Yes Stability: Anterior/Posterior stable and Varus/Valgus stable Hip Exam: flexion to 100+ degrees, full extension, internal/external rotation adequate and no pain with log roll Neurovascular Status: Sensation Intact, Moves foot and ankle up AND down and 2+ dorsalis pedis DATA: Diagnostic tests reviewed for today's visit: Right medial uni with lateral bone on bone; left knee medial bone on bone, osteoporotic The following conditions were addressed during the office visit today: Obesity - Weight management strategies, Diabetes - HgbA1C optimization and Poor dental hygiene - Dental evaluation SIGNATURE: Brandon Adan MD PATIENT NAME: Brittany Lorenzo DATE: July 27, 2018 TIME: 3:47 PM PROGRESS Observed: 07/27/2018 Status: COMPLETED Source: [place] 3:13 PM [facility] REPOSITORY O ID: [id number] Author: Cely Ma Service: (none) Author Type: (none) Type: Progress Notes Filed: 07/27/2018 3:14 PM Note Text: Radiology Service Progress Note PATIENT NAME: Brittany Lorenzo DATE OF SERVICE: July 27, 2018 TIME: 3:13 PM PATIENT IDENTITY VERIFICATION COMPLETED USING TWO (2) METHODS: Patient confirmed name verbally and ID band matches.. PATIENT GENDER DATA: Female. status: : No status: NO. PATIENT RELEVANT IMPLANT DATA REVIEWED: Not Applicable RADIOLOGY DEPARTMENT: General X-ray: Exam(s) Completed: Lower Extremity X-Ray(s): Knee, AP / Lat / Tunne / Merchant Bilateral: PERIPHERAL IV DATA: Not applicable SIGNED BY: Cely Ma July 27, 2018 3:13 PM XR KNEE 4V AP/PA/LAT/MERCH Observed: 07/27/2018 Status: F Source: [facility] 3:13 PM [facility] REPOSITORY * * *Final Report* * * DATE OF EXAM: Jul 27 2018 3:13PM AOX [id number] - XR KNEE 4V AP/PA/LAT/MERCH CA[place]O / PROCEDURE REASON: multiple diagnoses * * * * Physician Interpretation * * * * EXAMINATION: XR KNEE 4V AP/PA/LAT/MERCH CAYETANO HISTORY: bilateral chronic knee pain Primary osteoarthritis of left knee Chronic pain of left knee Chronic pain of left knee . TECHNIQUE: XR KNEE 4V AP/PA/LAT/MERCH CAYETANO Laterality: BILATERAL Number of different views (projections): 4 of each M: XB_1 COMPARISON: 07/20/2017 RESULT: Right knee. medial unicondylar arthroplasty components are intact unchanged in position and alignment in comparison to the previous examination. Remainder of the joint shows no abnormality. No joint effusion. Left knee Advanced medial compartment degenerative arthritis with bone on bone contact of the articular surfaces and moderate patellofemoral degenerative arthritis and remainder of the joint shows no change in comparison to the previous examination of 12 months earlier. No other significant abnormality. IMPRESSION: No change. Cigarette Book Maker: PSCB Transcribe Date/Time: Jul 27 2018 4:37P Dictated by : WALT CARLTON MD This examination was interpreted and the report reviewed and electronically signed by: WALT CARLTON MD on Jul 27 2018 4:39PM EST [id number] Observed: 07/27/2018 Status: COMPLETED Source: [place] 2:45 PM [facility] REPOSITORY Office Visit (ORTHMN) BRITTANY LORENZO ([id number]) 1940 F Date Time Provider Department 07/27/18 2:45 PM BRANDON ADAN During your visit today, we recorded the following information about you: Weight Height 99.8 kg 1.651 m Brandon Adan MD 07/27/2018 4:02 PM Signed CONSULT ORTHOPAEDIC: KNEE PRIMARY CARE PHYSICIAN: Osiel Flower MD REFERRING PROVIDER: SELF ASSESSMENT AND PLAN Impression: Left Knee Severe Degenerative Osteoarthritis, Primary Brittanymaximilian Lorenzo has radiograph and physical exam evidence of degenerative joint disease and wishes to pursue surgery. This patient appears to have sufficient symptoms to warrant surgical intervention and is an appropriate candidate for left Primary Total Knee Arthroplasty as evidenced by six months of unsuccessful non-operative treatment as outlined in the HPI below and progressive symptoms. Progressive Symptoms Include: Pain impacting sleep or causing fatigue Pain impacting work Pain worsened by weight bearing Pain effecting living situation Pain limiting ability to stay fit and healthy. This patient has the following risk factors requiring the use of antibiotic cement: None, non-antibiotic cement will be used. We had a lengthy discussion regarding the risk and benefit of surgery, the alternatives, limitations and personnel involved. These included but were not limited to infection, persistent pain, instability, nerve injury, blood clots, and medical complications. We also discussed the pre-operative course, surgery itself and rehabilitation. Alejandra-operative blood management and transfusion issues were discussed, and options clearly outlined. The patient has consented to the use of the banked allogenic blood if medically necessary. The patient has elected to schedule surgery at this time or intends to call the office with a surgical date. Shared decision making occurred while obtaining informed consent. The patient will be scheduled for a pre- operative education class at which time they will have their nasal swab completed and will be given CHG cloths along with the verbal and written instructions for their use. The patient has been ordered: Physical therapy CONSULTS: Cardiology Consult for cardiac clearance for TKA . [place] DVT scan ACTIVE PROBLEM LIST Diaphragmatic Hernia Without Mention of Obstruction Or Gangrene Acute Gastritis Without Mention of Hemorrhage Knee Pain History of Dvt (Deep Vein Thrombosis) Coronary Artery Disease Peripheral Neuropathy Diabetes Mellitus, Type 2 (Hcc) Hypertension Hyperlipidemia Depression Backache, Unspecified Arthritis of Knee Diabetic Retinopathy, Nonproliferative, Moderate (Hcc) Osteoporosis Degeneration of Lumbar Or Lumbosacral Intervertebral Disc Hip Pain Lumbosacral Neuritis Enthesopathy of Hip Region Right-Sided Low Back Pain With Right-Sided Sciatica Osteoarthritis of Spine With Radiculopathy, Lumbar Region Oropharyngeal Dysphagia Obesity, Class II, Bmi 35-39.9 Discussed issues, options and periop scheduling: Rec left TKA Anesthesia Spinal and regional block / catheter (preferred) Educational Educational packet provided Periop antibiotics Primary knee: Allergic to PCN --> Vanco, Cipro (per protocol) Home situation Lives with spouse in one floor house Postop rehab Inpatient at [facility] Postop rehab Home with services. [facility] preferred. Outpatient rehab [facility] [place] Out of work Anticipate at least 6 weeks and then graduated return to full activities and duties by 12 weeks postop No driving x 6 weeks Preop consultations: Dentist (letter to be sent) DVT, [place], Cardiology preop PT [facility] Today with [facility] if not already completed Within 6 months of surgical date or needs updating Implant plan: CR v T in P Cement No Antibiotics TXA IA DVT pending recommendations Consent: TKA The risks, benefits and anticipated outcomes of the procedure, the risks and benefits of the alternatives to the procedure, including but not limited to blood clots, infection and failure to relieve pain, implant failure, leg length inequality and nerve damage; and the roles and tasks of the personnel to be involved were discussed with the patient and the patient consents to the procedure and agrees to proceed. I verify that I personally obtained the patient's consent. Schedule in near future, patient will contact office for arrangements. More than 50% of this 60 minute visit were spent counseling the patient. RTC August 2018 to review consults and details 6 months from injection is earliest scheduling December 2018 Gus Adan MD - SUBJECTIVE CHIEF COMPLAINT: Knee Pain HPI: Brittany Lorenzo is a 77 year old female here for evaluation and management of left knee pain. She has had progressive problems with the knee(s) constantly over the past 10 year(s) interfering with activities which include exercise, walking, standing for prolonged periods of time, climbing stairs and safety-increased risk for fall. The problem began limiting activities 3+ years ago. Here with daughter and daughter. Currently the pain in the joint is rated at 10 out of 10 with minimal activity. The pain is constant and is located along the inside aspect. The pain is described as aching and stabbing. Relieving factors include ambulatory device and rest. There is no specific incident that brought about this pain. She also complains of weakness and stiffness. Body mass index is 36.61 kg/m?. Healthquest score: 4 FUNCTIONAL STATUS: Climb a flight of stairs or walk up a hill (5.50 METs) Preoperative Ambulatory Status: Independent Community Distances Number of Entry Steps: 2 Bedroom Location: First floor Bathroom Location: First floor Caregiver Assistance: Consistent/Live-In (5-7 days/wk) Home Location: [place] to 150 miles PREVIOUS TREATMENTS: Attempted Weight Loss Medical Treatments: Intolerant of NSAIDS, Steroid Injections Left Knee, Viscosupplementation Left Knee Physical Therapy: Use of Ambulatory Aid, Shoe Wear, Braces, Orthotics, etc. and Activities Modified Previous Surgery: Knee Arthroscopy REVIEW OF SYSTEMS: PAIN ASSESSMENT: See HPI. MUSCULOSKELETAL: See HPI. Surgical Risk Factors: Coronary Artery Disease, Chronic Narcotic Use, Dental Disease, Diabetes, Heart Disease, History of DVT, Peripheral Vascular History and Psychiatric PAST MEDICAL HISTORY Diagnosis Date - Backache, unspecified In pain management with Dr. Reyna - Cardiomyopathy (HCC) - Compression fracture of L4 lumbar vertebra (HCC) Dr. Polo prescribing pain meds - Coronary artery disease Dr Mendez; s/p CABG, no IA - Depression - Diabetes mellitus, type 2 (HCC) - Diabetic retinopathy, nonproliferative, moderate (HCC) - Hiatal hernia - History of DVT (deep vein thrombosis) cardiology manages, coumadin. after CABG(PE), (L leg) heart cath, and (R leg) knee surgery - Hyperlipidemia - Hypertension - Pain management Sees Dr. Reyna at [facility] for back - Peripheral neuropathy - Shortness of breath PAST SURGICAL HISTORY Procedure Laterality Date - APPENDECTOMY - BREAST BIOPSY left, aspiration and excision of cyst - COLONOSCOP W/ OR W/O [facility] SPEC 12 years ago Colonoscopy - COLONOSCOP W/ OR W/O BRSH SPEC 03/30/11 - EGD W/O BRSH SPECIMEN W/BX 03/30/11 - EGD W/O OR W/BRUSH/WASH 11/22/2013 EGD - EGD W/O OR W/BRUSH/WASH 04/24/2016 EGD - ESOPHAGEAL DILATATION 03/30/11 - HEART CATHETERIZATION - HEART SURGERY HX - LAPAROSCOPIC CHOLEYCYSTECTOMY 1997 Cholecystectomy, lap - PAST SURGICAL HISTORY OF 195 bowel surgery, perforation - PAST SURGICAL HISTORY OF Left 2000 Left knee arthroscopy, Dr. Hussein - PAST SURGICAL HISTORY OF 07/26/14 lumbar pain injections - REDUCTION OF LARGE BREAST 1995 - REPAIR HEART WND W CP BYPASS 2003 bypass x 6, Dr. Becerra/[facility] - TOTAL ABDOM HYSTERECTOMY 1990 [place]/BSO; benign menorrhagia, endometriosis - TOTAL KNEE REPLACEMENT Right 2007 right partial knee replacement/ Dr. Hussein FAMILY HISTORY Problem Relation Age of Onset - Heart Mother - Cancer Father of esophageal cancer Social History Marital status: Spouse name: Years of education: Number of children: 2 Occupational History Occupation Employer [employer] Social History Main Topics Smoking status: Never Smoker Smokeless tobacco: Never Used Alcohol use: No Drug use: No Sexual activity: No ALLERGIES: Wilda Inhibitors; Doxycycline; Keflex [Cephalexin]; Penicillins; Percocet [Oxycodone-Acetaminophen]; Sulfa (Sulfonamide Antibiotics); Tetracycline MEDICATIONS: amitriptyline (ELAVIL) 25 mg tablet Take 1 tablet by mouth daily at bedtime. Aspirin 81 mg ORAL Tab Take 81 mg by mouth. CALCIUM CARBONATE/VITAMIN D3 (CALCIUM + D ORAL) Take by mouth. COMPOUNDED PRESCRIPTION Powerstep gel insert(M77.41, M77.42) Metatarsalgia of both feet (primary encounter diagnosis)(M25.579) Pain in joint involving ankle and foot, unspecified laterality(M21.41, M21.42) Pes planus of both feet CYANOCOBALAMIN, VITAMIN B-12, (VITAMIN B-12 ORAL) Take by mouth. diclofenac sodium (VOLTAREN) 1 % topical gel Apply 4 g to affected area four times daily. estradiol (ESTRACE) 0.01 % (0.1 mg/gram) vaginal cream Apply pea-sized amount to perineum and 1 applicator vaginally twice a week for atrophic vaginitis. folic acid 1 mg tablet Take 1 tablet by mouth once daily. furosemide (LASIX) 40 mg tablet Take 40 mg by mouth once daily. gabapentin (NEURONTIN) 600 mg tablet Take 1 tablet by mouth four times daily for 90 days. isosorbide mononitrate ER (IMDUR) 120 mg 24 hr tablet Take 120 mg by mouth once daily. Leg Brace (ELASTIC KNEE SUPPORT) [facility] Left knee elastic knee support. losartan (COZAAR) 50 mg tablet Take 1 tablet by mouth once daily. metoprolol tartrate, short acting, (LOPRESSOR) 100 mg tablet Take 100 mg by mouth once daily. nitroglycerin sublingual (NITROQUICK) 0.4 mg SL tablet Dissolve 0.4 mg under the tongue every 5 minutes as needed. Up to 3 max omeprazole (PRILOSEC) 20 mg capsule Take 1 capsule by mouth twice daily. ondansetron orally disintegrating (ZOFRAN ODT) 4 mg disintegrating tablet Take 1 tablet by mouth every 6 hours as needed for Nausea/Vomiting. rosuvastatin (CRESTOR) 40 mg tablet Take 40 mg by mouth once daily. tiZANidine (ZANAFLEX) 4 mg tablet Take 1 tablet by mouth every 6 hours as needed. tiZANidine (ZANAFLEX) 4 mg tablet Take 1 tablet by mouth every 8 hours as needed. ubidecarenone Q-10 (CO Q-10) 10 mg cap Take 1 capsule by mouth once daily. warfarin (COUMADIN) 5 mg tablet Per cardiology warfarin 4 mg tablet Per Cardiology: 4 mg 6 days a week and 2 mg once a week. PHYSICAL EXAM: Ht 165.1 cm (5' 5) Wt 99.8 kg (220 lb) BMI 36.61 kg/m? All other systems deferred. GENERAL: Obese HABITUS: Obese GAIT: Normal, the patient did not have trouble getting onto the exam table. KNEE EXAM: Left: Alignment: Neutral Range of motion is 10 degrees in extension and 90 degrees of flexion. Extension La-20 degrees Pain with ROM: Yes Effusion: Slight Tender to the palpation of Medial femoral condyle Pain with patellar compression: Yes Stability: Anterior/Posterior stable and Varus/Valgus stable Hip Exam: flexion to 100+ degrees, full extension, internal/external rotation adequate and no pain with log roll Neurovascular Status: Sensation Intact, Moves foot and ankle up AND down and 2+ dorsalis pedis DATA: Diagnostic tests reviewed for today's visit: Right medial uni with lateral bone on bone; left knee medial bone on bone, osteoporotic The following conditions were addressed during the office visit today: Obesity - Weight management strategies, Diabetes - HgbA1C optimization and Poor dental hygiene - Dental evaluation SIGNATURE: Brandon Adan MD PATIENT NAME: Brittany Lorenzo DATE: July 27, 2018 TIME: 3:47 PM Referring Provider: SELF [[id number]] Allergies As of Date: 07/27/2018 Noted Allergy Reaction WILDA INHIBITORS 05/23/2014 3 - Cough Comments: WILDA cough DOXYCYCLINE 01/22/2012 7 - Swelling Comments: Tongue and feet KEFLEX (CEPHALEXIN) 07/16/2014 11 - Vomiting PENICILLINS 01/22/2011 2 - Rash Comments: edema PERCOCET (OXYCODONE-ACETAMINOPHEN)03/29/2013 8 - GI Upset Comments: Patient has taken, needs to eat prior to taking. SULFA (SULFONAMIDE ANTIBIOTICS) 01/22/2011 2 - Rash TETRACYCLINE 01/22/2011 2 - Rash Comments: difficulty breathing Date Reviewed: 07/27/2018 Reviewed by: Misty Fry Ma - Fully Assessed Reason for Visit: New Patient [172] Cmt: Left Knee Pain Primary Visit Diagnosis:Primary osteoarthritis of left knee [M17.12] Other Visit Diagnoses:Chronic pain of left knee [M25.562, G89.29] Obesity, Class II, BMI 35-39.9 [E66.9] History of DVT (deep vein thrombosis) [Z86.718] Coronary artery disease involving [place] heart without angina pectoris, unspecified vessel or lesion type [I25.10] Cardiomyopathy, unspecified type (HCC) [I42.9] Preoperative examination [Z01.818] Peripheral vascular disease (HCC) [I73.9] Order(s):PATIENT PLACED ON [facility] CARE PATH [2618747] Order #: [id number]: 1 US LEG VEIN DVT [facility] [8648096] Order #: [id number] FUTURE CONSULT TO CARDIOLOGY [9004] Order #: [id number]: 1 PVR ANK PRESS [facility] [7613051] Order #: [id number] FUTURE Prescriptions as of 07/27/2018 Sig: AMITRIPTYLINE 25 MG TABLET Take 1 tablet by mouth daily * * ASPIRIN 81 MG TABLET Take 81 mg by mouth. * CALCIUM + D ORAL Take by mouth. COMPOUNDED PRESCRIPTION Powerstep gel insert (M77.41* VITAMIN B-12 ORAL Take by mouth. DICLOFENAC 1 % TOPICAL GEL Apply 4 g to affected area fo* ESTRADIOL 0.01% (0.1 MG/GRAM)* Apply pea-sized amount to per* FOLIC ACID 1 MG TABLET Take 1 tablet by mouth once d* * FUROSEMIDE 40 MG TABLET Take 40 mg by mouth once alondra* GABAPENTIN 600 MG TABLET Take 1 tablet by mouth four t* ISOSORBIDE MONONITRATE ER 120* Take 120 mg by mouth once melanie* LEG BRACE Left knee elastic knee suppor* LOSARTAN 50 MG TABLET Take 1 tablet by mouth once d* Patient taking differently: Take 100 mg by mouth once melanie* METOPROLOL TARTRATE 100 MG TA* Take 100 mg by mouth once melanie* NITROGLYCERIN 0.4 MG SUBLINGU* Dissolve 0.4 mg under the ton* OMEPRAZOLE 20 MG CAPSULE,YANETH* Take 1 capsule by mouth twice* ONDANSETRON 4 MG DISINTEGRATI* Take 1 tablet by mouth every * * ROSUVASTATIN 40 MG TABLET Take 40 mg by mouth once alondra* TIZANIDINE 4 MG TABLET Take 1 tablet by mouth every * TIZANIDINE 4 MG TABLET Take 1 tablet by mouth every * COENZYME Q10 10 MG CAPSULE Take 1 capsule by mouth once * WARFARIN 5 MG TABLET Per cardiology Patient taking differently: Per cardiology: 4 mg 6 days a* WARFARIN 4 MG TABLET Per Cardiology: 4 mg 6 days * Problem List As Of Date 07/27/2018 Noted Resolved Diaphragmatic hernia without mention of obstruc*INVALID FOR* Acute gastritis without mention of hemorrhage [*INVALID FOR* Dysphagia, unspecified [R13.10] INVALID FOR*11/23/2016 Knee pain [M25.569] INVALID FOR* History of DVT (deep vein thrombosis) [Z86.718] More... Coronary artery disease [I25.10] More... Peripheral neuropathy [G62.9] More... Diabetes mellitus, type 2 [E11.9] Hypertension [I10] Hyperlipidemia [E78.5] Depression [F32.9] Backache, unspecified [M54.9] Arthritis of knee [M17.10] INVALID FOR* Diabetic retinopathy, nonproliferative, moderat* Osteoporosis [M81.0] INVALID FOR* Lumbar radiculopathy [M54.16] INVALID FOR*12/19/2014 DDD (degenerative disc disease), lumbar [M51.36]INVALID FOR*12/19/2014 Lumbar spondylosis [M47.816] INVALID FOR*02/27/2015 Degeneration of lumbar or lumbosacral intervert*INVALID FOR* Lumbago [M54.5] INVALID FOR*12/19/2014 Hip pain [M25.559] INVALID FOR* Lumbosacral neuritis [M54.17] INVALID FOR* Low back pain [M54.5] INVALID FOR*02/27/2015 Enthesopathy of hip region [M76.899] INVALID FOR* Right-sided low back pain with right-sided scia*INVALID FOR* Osteoarthritis of spine with radiculopathy, lum*INVALID FOR* Oropharyngeal dysphagia [R13.12] INVALID FOR* Obesity, Class II, BMI 35-39.9 [E66.9] INVALID FOR* Cardiomyopathy (HCC) [I42.9] Disposition: Return in about 4 weeks (around 08/24/2018). Follow-up and Disposition History Recorded Encounter Status:Closed by BRANDON ADAN MD on 07/27/18 PROTHROMBIN TIME W/INR Collected: 07/18/2018 Status: F Source: [place] 1:09 PM [facility] REPOSITORY TYPE CODE TESTS RESULT OUT OF RANGE REFERENCE UNITS LAB L300.4150 11.7-14.9 SECONDS High PROTIME 23.5 LAB L300.4200 Normal INR 2.1 Performed By: #### L300.3900 #### [facility] [address] [place], [place], [address] KNEE COMPLETE LT MIN Observed: 07/12/2018 Status: F [facility]48 [facility] [place] [address] Patient: BRITTANY LORENZO Phone#: : 1940 Age: 77 Gender: F Pt. Type: ER Account: [id number] Location: 052 Ordering: GAB ROLLINS Exam Date: 07/12/2018/10:17 Family Phys: OSIEL FLOWER Charge Code: [id number] Physician: Hendry Order #: [id number] DLP Dose#: PROCEDURE: X-RAY KNEE LT COMPLETE 4 VIEWS COMPARISON: None. INDICATIONS: Left knee pain FINDINGS: BONES: Severe degenerative changes of the knee are present. The medial compartment is narrowed. There is irregularity of the bony margin. There is flattening of the femoral condyle and tibial plateau. Osteophytes are present at the medial femoral condyle and medial tibial plateau. There is moderate narrowing of the lateral patellofemoral joint space. SOFT TISSUES: Negative. No visible soft tissue swelling. EFFUSION: A small suprapatellar effusion is present. OTHER: Negative. CONCLUSION: 1. Severe narrowing and obliteration of the joint space of the medial compartment. 2. Moderate lateral patellofemoral joint space narrowing. Dictated by: Marianna Stevenson MD on 07/12/2018 at 10:50 Approved by: Marianna Stevenson MD on 07/12/2018 at 10:50 EMERGENCY REPORT Observed: 07/12/2018 Status: F Source: [facility] 9:59 AM [facility] EMERGENCY ROOM REPORT NAME ACCOUNT SEX AGE ADMIT DISCHARGE PT MED. RECORD# NUMBER DATE DATE TYPE BJ, [id number] F 77 07/12/18 07/12/18 3 BRITTANY Del Castillo [id number] ROOM: ER DATE OF : 1940 DICTATING PHYSICIAN: Gab Rollins CHIEF COMPLAINT: Knee pain. HISTORY OF PRESENT ILLNESS: Patient has known chronic pain and known knee arthritis. She states that she has been having more pain to the knee over the last 2 weeks. No injury or trauma. She did have some injections previously which seemed to help minimally. She is able to weight bear, though with pain. PAST MEDICAL HISTORY: Significant for hypertension, history of blood clots, hyperlipidemia, reflux and chronic pain. She also has known coronary artery disease. PAST SURGICAL HISTORY: Previous coronary artery bypass surgery. MEDICATIONS: Per medication reconciliation list. ALLERGIES: She is allergic to penicillin. SOCIAL HISTORY: She lives at home. She is accompanied here with family. She does not smoke or drink alcohol. PHYSICAL EXAMINATION: This is a 77-year-old mildly obese female who is alert and appropriate. Patient does not appear toxic. Skin is pink, warm and dry. Vital Signs: Temperature 97.4, pulse 80, respirations 14, blood pressure 155/78. Exam focused to the left lower extremity. Gross exam of the leg and knee reveal some noticeable bony degenerative changes but no redness, bruising or soft tissue swelling. She has tenderness diffusely along the joint line and tenderness with knee movement. No appreciable effusion. Good peripheral pulses and capillary refill. DIAGNOSTIC DATA: Left knee x-ray shows severe degenerative changes with essentially obliteration of the joint space and bone on bone medially. EMERGENCY DEPARTMENT COURSE AND TREATMENT: She was given a Percocet orally and a prescription for a small amount of Percocet. OARRS report was noted. DIAGNOSIS: Page 1 of 2 BRITTANY LORENZO Emergency Room Report PLAN/DISPOSITION: She is to follow up with Orthopaedics for further evaluation regarding possible knee replacement. Dictated By: Gab Rollins MD 07/12/18 10:59 JOB #: [id number] Transcribed By: bárbara 07/12/18 22:30 Electronically signed by: ALEXANDER Rollins M.D. 07/26/18 07:13 Page 2 of 2 BRITTNAY LORENZO Emergency Room Report UGI SERIES W/O KUB Observed: 07/12/2018 Status: F Source: [facility] 9:05 AM [place] [address] Patient: BRITTANY LORENZO. Phone#: : 1940 Age: 77 Gender: F Pt. Type: Out Account: [id number] Location: [facility] Ordering: BRANDON VELEZ Exam Date: 07/12/2018/9:32 Family Phys: OSIEL FLOWER Charge Code: [id number] Physician: Hendry Order #: [id number] [facility] Dose#: PROCEDURE: X-RAY UGI W/O KUB COMPARISON: [place], [place], MODIFIED BARIUM SWALLOW, 07/12/2018, 9:23. INDICATIONS: Dysphagia TECHNIQUE: An air contrast upper gastrointestinal series was performed in the usual manner. TOTAL DOSE: 115.27 mGy FINDINGS: ESOPHAGUS: There is poor peristalsis. Tertiary contractions are present. A small hiatal hernia is present. Gastroesophageal reflux is demonstrated in the recumbent position. STOMACH: Normal. No obstruction, mass, or ulceration. Normal motility. DUODENUM: Normal. No ulceration or diverticulum. OTHER: Sternotomy sutures are present. CONCLUSION: 1. A small hiatal hernia is present. Tertiary contractions of the esophagus are present. Dictated by: Marianna Stevenson MD on 07/12/2018 at 10:22 Approved by: Marianna Stevenson MD on 07/12/2018 at 10:22 MODIFIED BARIUM Observed: 07/12/2018 Status: F Source: [facility] 9:04 AM [facility] REPOSITORY [place] [address] Patient: BRITTANY LORENZO Phone#: : 1940 Age: 77 Gender: F Pt. Type: Out Account: [id number] Location: 2 Ordering: BRANDON VELEZ Exam Date: 07/12/2018/9:23 Family Phys: OSIEL FLOWER Charge Code: [id number] Physician: Hendry Order #: [id number] DLP Dose#: PROCEDURE: CINERADIOGRAPHY MODIFIED BARIUM SWALLOW COMPARISON: None. INDICATIONS: Dysphasia TECHNIQUE: A swallowing evaluation was performed with fluoroscopy and speech therapy in the usual manner. TOTAL DOSE: 42.36 mGy FINDINGS: ORAL PHASE: Normal deglutition. PHARYNGEAL PHASE: Normal swallowing. ASPIRATION: None. STRUCTURE: There is mild delay in emptying of esophageal contents. There is no significant peristalsis demonstrated. OTHER: Negative. CONCLUSION: 1. Poor esophageal motility. Full report by speech therapy to follow. Dictated by: Marianna Stevenson MD on 07/12/2018 at 10:20 Approved by: Marianna Stevenson MD on 07/12/2018 at 10:20 PROTHROMBIN TIME W/INR Collected: 06/24/2018 Status: F Source: [place] 12:17 PM [facility] REPOSITORY TYPE CODE TESTS RESULT OUT OF RANGE REFERENCE UNITS LAB L300.4150 11.7-14.9 SECONDS High PROTIME 24.7 LAB L300.4200 Normal INR 2.2 Performed By: #### L300.3900 #### [facility] [address] [place], [address] CNPN Observed: 06/22/2018 Status: COMPLETED Source: [place] 12:00 AM [facility] REPOSITORY Telephone ([employer]) BRITTANY LORENZO ([id number]) 1940 F Date Time Provider Department 06/22/18 JCAKIE RADER (PA) During your visit today, we recorded the following information about you: Patsy Yeh RN, RN 06/22/2018 11:06 AM Signed Daughter, Aviva Diehl called and stated that Jackie needs to write a written prescription to take to the supply store for the left knee elastic knee support. Since it was sent to the pharmacy at [facility] it would cost her $75.00. Informed her that jackie is at another office, but will have ready by Wednesday at [place] office. Patient does not have cell phone. She will call to on her way back from another appt to see if ready to tack picker. KIRIT Wolfe PA-C 06/23/2018 9:02 AM Signed I already entered an RX for a brace, can we just print that one? Patsy Yeh RN, RN 06/23/2018 10:27 AM Addendum That prescription has information from the pharmacy on it, we have the blank scripts here. Thanks KIRIT Wolfe PA-C 06/27/2018 8:10 AM Signed New order printed. Patsy Yeh RN, RN 06/27/2018 8:53 AM Signed Placed script in envelope and put at Pul desk. Patient will be calling to see if ready. KIRIT Wolfe RN, RN 06/27/2018 4:36 PM Addendum Late entry- Patient's daughter came to tack picker brace script. Patsy Yeh RN Allergies As of Date: 06/22/2018 Noted Allergy Reaction WILDA INHIBITORS 05/23/2014 3 - Cough Comments: WILDA cough DOXYCYCLINE 01/22/2012 7 - Swelling Comments: Tongue and feet KEFLEX (CEPHALEXIN) 07/16/2014 11 - Vomiting PENICILLINS 01/22/2011 2 - Rash Comments: edema PERCOCET (OXYCODONE-ACETAMINOPHEN)03/29/2013 8 - GI Upset Comments: Patient has taken, needs to eat prior to taking. SULFA (SULFONAMIDE ANTIBIOTICS) 01/22/2011 2 - Rash TETRACYCLINE 01/22/2011 2 - Rash Comments: difficulty breathing Date Reviewed: 06/13/2018 Reviewed by: Jackie Rader (Pa) - Fully Assessed Reason for Visit: written prescription [Other] Visit Diagnosis:Primary osteoarthritis of left knee [M17.12] Order(s):Leg Brace (ELASTIC KNEE SUPPORT) miscLeft knee elastic knee support.Disp: 1 EachRfl: 0 Prescriptions as of 06/22/2018 Sig: LEG BRACE Left knee elastic knee suppor* COENZYME Q10 10 MG CAPSULE Take 1 capsule by mouth once * FOLIC ACID 1 MG TABLET Take 1 tablet by mouth once d* DICLOFENAC 1 % TOPICAL GEL Apply 4 g to affected area fo* ONDANSETRON 4 MG DISINTEGRATI* Take 1 tablet by mouth every * TIZANIDINE 4 MG TABLET Take 1 tablet by mouth every * COMPOUNDED PRESCRIPTION Powerstep gel insert (M77.41* AMITRIPTYLINE 25 MG TABLET Take 1 tablet by mouth daily * GABAPENTIN 600 MG TABLET Take 1 tablet by mouth four t* ESTRADIOL 0.01% (0.1 MG/GRAM)* Apply pea-sized amount to per* OMEPRAZOLE 20 MG CAPSULE,YANETH* Take 1 capsule by mouth twice* WARFARIN 5 MG TABLET Per cardiology Patient taking differently: Per cardiology: 4 mg 6 days a* METOPROLOL TARTRATE 100 MG TA* Take 100 mg by mouth once melanie* ISOSORBIDE MONONITRATE ER 120* Take 120 mg by mouth once melanie* LOSARTAN 50 MG TABLET Take 1 tablet by mouth once d* Patient taking differently: Take 100 mg by mouth once melanie* NITROGLYCERIN 0.4 MG SUBLINGU* Dissolve 0.4 mg under the ton* WARFARIN 4 MG TABLET Per Cardiology: 4 mg 6 days * VITAMIN B-12 ORAL Take by mouth. * ROSUVASTATIN 40 MG TABLET Take 40 mg by mouth once alondra* * FUROSEMIDE 40 MG TABLET Take 40 mg by mouth once alondra* * ASPIRIN 81 MG TABLET Take 81 mg by mouth. * CALCIUM + D ORAL Take by mouth. Problem List As Of Date 06/22/2018 Noted Resolved Diaphragmatic hernia without mention of obstruc*INVALID FOR* Acute gastritis without mention of hemorrhage [*INVALID FOR* Dysphagia, unspecified [R13.10] INVALID FOR*11/23/2016 Knee pain [M25.569] INVALID FOR* History of DVT (deep vein thrombosis) [Z86.718] More... Coronary artery disease [I25.10] More... Peripheral neuropathy [G62.9] More... Diabetes mellitus, type 2 [E11.9] Hypertension [I10] Hyperlipidemia [E78.5] Depression [F32.9] Backache, unspecified [M54.9] Arthritis of knee [M17.10] INVALID FOR* Diabetic retinopathy, nonproliferative, moderat* Osteoporosis [M81.0] INVALID FOR* Lumbar radiculopathy [M54.16] INVALID FOR*12/19/2014 DDD (degenerative disc disease), lumbar [M51.36]INVALID FOR*12/19/2014 Lumbar spondylosis [M47.816] INVALID FOR*02/27/2015 Degeneration of lumbar or lumbosacral intervert*INVALID FOR* Lumbago [M54.5] INVALID FOR*12/19/2014 Hip pain [M25.559] INVALID FOR* Lumbosacral neuritis [M54.17] INVALID FOR* Low back pain [M54.5] INVALID FOR*02/27/2015 Enthesopathy of hip region [M76.899] INVALID FOR* Right-sided low back pain with right-sided scia*INVALID FOR* Osteoarthritis of spine with radiculopathy, lum*INVALID FOR* Oropharyngeal dysphagia [R13.12] INVALID FOR* Prescriptions ordered this encounter Disp Refills Start End LEG BRACE 1 Ea* 0 06/27/2018 Class: Print RX Sig: Left knee elastic knee support. Medications Discontinued During This Encounter Leg Brace (ELASTIC KNEE SUPPORT) misc 1 Ea* 0 06/06/2018 06/27/2018 Sig: Left knee elastic knee support. Disc: Changing Therapy/Dosage Form Encounter Status:Closed by PATSY YEH on 06/27/18 PROTHROMBIN TIME W/INR Collected: 06/17/2018 Status: F Source: [place] 2:18 PM [facility] REPOSITORY TYPE CODE TESTS RESULT OUT OF RANGE REFERENCE UNITS LAB L300.4150 11.7-14.9 SECONDS High PROTIME 26.1 LAB L300.4200 Normal INR 2.4 Performed By: #### L300.3900 #### [facility] [address] [place], [address] PROGRESS Observed: 06/13/2018 Status: COMPLETED Source: [place] 12:33 PM [facility] REPOSITORY HNO ID: [id number] Author: Jackie Rader (Pa) Service: (none) Author Type: Physician Yoker Machine Operator Type: Progress Notes Filed: 06/13/2018 2:17 PM Note Text: Procedure note: Euflexxa #3 The risk, benefits and alternatives of injection and no injection therapy were discussed. The patient consented for an injection. Time out was conducted. The injection site was prepped with a Chlorhexadine swab. The left anteriolateral joint was injected with a 25 gauge needle with Euflexxa 2 cc . The injection site was then dressed with a bandaid. The patient tolerated the injection well. The patient was instructed to call the office if any adverse local effects occurred or any if any questions or concerns arise. Jackie Rader PA-C Patient requests a refill of the tramadol as she finds it to be helpful for knee pain. Discussed with patient that I am not able to manage long-term medications for her. Suggested that she follow- up with her pain management doctor to discuss managing long-term tramadol use. Patient was advised that this will be the last refill of this medication. PROGRESS Observed: 06/13/2018 Status: COMPLETED Source: [place] 12:07 PM [facility] REPOSITORY HNO ID: [id number] Author: Fariba Kingston Ma Service: (none) Author Type: (none) Type: Progress Notes Filed: 06/13/2018 2:17 PM Note Text: Patient presents with: Established Patient: Euflexxa injection # 3 left knee AMB ROOMING INTAKE FLOWSHEET DATA Risk Screening Do you have concerns about personal safety or safety in the home?: No Pain Pain Score: 10/10 Pain Location: Knee-Left Description: Sharp, Aching Duration Amount of Time: (Ongoing) Frequency: Continuous Intervention: Medication Patient states she is continuing to have pain on the lateral aspect of her knee. States the pain is not anything different then she has been having. Tramadol is only helping take the edge off. Has been keeping a heating pad on her knee at home. Daughter and with patient today Here for Euflexxa injection # 3 left knee. Lot # [id number] Exp. 05/01/2019. CNOV Observed: 06/13/2018 Status: COMPLETED Source: [place] 11:30 AM [facility] REPOSITORY Office Visit (ORTHWS) BRITTANY LORENZO ([id number]) 1940 F Date Time Provider Department 06/13/18 11:30 AM JACKIE RADER (PA) During your visit today, we recorded the following information about you: Fariba Kingston Erlinda 06/13/2018 2:17 PM Signed Patient presents with: Established Patient: Euflexxa injection # 3 left knee AMB ROOMING INTAKE FLOWSHEET DATA Risk Screening Do you have concerns about personal safety or safety in the home?: No Pain Pain Score: 10/10 Pain Location: Knee-Left Description: Sharp, Aching Duration Amount of Time: (Ongoing) Frequency: Continuous Intervention: Medication Patient states she is continuing to have pain on the lateral aspect of her knee. States the pain is not anything different then she has been having. Tramadol is only helping take the edge off. Has been keeping a heating pad on her knee at home. Daughter and with patient today Here for Euflexxa injection # 3 left knee. Lot # [id number] Exp. 05/01/2019. Jackie Rader PA-C 06/13/2018 2:17 PM Signed Procedure note: Euflexxa #3 The risk, benefits and alternatives of injection and no injection therapy were discussed. The patient consented for an injection. Time out was conducted. The injection site was prepped with a Chlorhexadine swab. The left anteriolateral joint was injected with a 25 gauge needle with Euflexxa 2 cc . The injection site was then dressed with a bandaid. The patient tolerated the injection well. The patient was instructed to call the office if any adverse local effects occurred or any if any questions or concerns arise. Jackie Rader PA-C Patient requests a refill of the tramadol as she finds it to be helpful for knee pain. Discussed with patient that I am not able to manage long-term medications for her. Suggested that she follow-up with her pain management doctor to discuss managing long-term tramadol use. Patient was advised that this will be the last refill of this medication. Referring Provider: OSIEL FLOWER [[id number]] Allergies As of Date: 06/13/2018 Noted Allergy Reaction WILDA INHIBITORS 05/23/2014 3 - Cough Comments: WILDA cough DOXYCYCLINE 01/22/2012 7 - Swelling Comments: Tongue and feet KEFLEX (CEPHALEXIN) 07/16/2014 11 - Vomiting PENICILLINS 01/22/2011 2 - Rash Comments: edema PERCOCET (OXYCODONE-ACETAMINOPHEN)03/29/2013 8 - GI Upset Comments: Patient has taken, needs to eat prior to taking. SULFA (SULFONAMIDE ANTIBIOTICS) 01/22/2011 2 - Rash TETRACYCLINE 01/22/2011 2 - Rash Comments: difficulty breathing Date Reviewed: 06/13/2018 Reviewed by: Jackie Rader (Pa) - Fully Assessed Reason for Visit: Established Patient [175] Cmt: Euflexxa injection # 3 left knee Visit Diagnoses:Primary osteoarthritis of left knee [M17.12] Acute pain of left knee [M25.562] Order(s):traMADol (ULTRAM) 50 mg tabletTake 1 tablet by mouth every 6 hours as needed for up to 7 days.Disp: 20 tabletRfl: 0 [] sodium hyaluronate 20 mg injection (EUFLEXXA)Disp: Rfl: Prescriptions as of 06/13/2018 Sig: TRAMADOL 50 MG TABLET Take 1 tablet by mouth every * COENZYME Q10 10 MG CAPSULE Take 1 capsule by mouth once * FOLIC ACID 1 MG TABLET Take 1 tablet by mouth once d* LEG BRACE Left knee elastic knee suppor* DICLOFENAC 1 % TOPICAL GEL Apply 4 g to affected area fo* ONDANSETRON 4 MG DISINTEGRATI* Take 1 tablet by mouth every * TIZANIDINE 4 MG TABLET Take 1 tablet by mouth every * COMPOUNDED PRESCRIPTION Powerstep gel insert (M77.41* ESTRADIOL 0.01% (0.1 MG/GRAM)* Apply pea-sized amount to per* OMEPRAZOLE 20 MG CAPSULE,YANETH* Take 1 capsule by mouth twice* WARFARIN 5 MG TABLET Per cardiology Patient taking differently: Per cardiology: 4 mg 6 days a* METOPROLOL TARTRATE 100 MG TA* Take 100 mg by mouth once melanie* ISOSORBIDE MONONITRATE ER 120* Take 120 mg by mouth once melanie* LOSARTAN 50 MG TABLET Take 1 tablet by mouth once d* Patient taking differently: Take 100 mg by mouth once melanie* NITROGLYCERIN 0.4 MG SUBLINGU* Dissolve 0.4 mg under the ton* WARFARIN 4 MG TABLET Per Cardiology: 4 mg 6 days * VITAMIN B-12 ORAL Take by mouth. * ROSUVASTATIN 40 MG TABLET Take 40 mg by mouth once alondra* * FUROSEMIDE 40 MG TABLET Take 40 mg by mouth once alondra* * ASPIRIN 81 MG TABLET Take 81 mg by mouth. * CALCIUM + D ORAL Take by mouth. AMITRIPTYLINE 25 MG TABLET Take 1 tablet by mouth daily * GABAPENTIN 600 MG TABLET Take 1 tablet by mouth four t* Problem List As Of Date 06/13/2018 Noted Resolved Diaphragmatic hernia without mention of obstruc*INVALID FOR* Acute gastritis without mention of hemorrhage [*INVALID FOR* Dysphagia, unspecified [R13.10] INVALID FOR*11/23/2016 Knee pain [M25.569] INVALID FOR* History of DVT (deep vein thrombosis) [Z86.718] More... Coronary artery disease [I25.10] More... Peripheral neuropathy [G62.9] More... Diabetes mellitus, type 2 [E11.9] Hypertension [I10] Hyperlipidemia [E78.5] Depression [F32.9] Backache, unspecified [M54.9] Arthritis of knee [M17.10] INVALID FOR* Diabetic retinopathy, nonproliferative, moderat* Osteoporosis [M81.0] INVALID FOR* Lumbar radiculopathy [M54.16] INVALID FOR*12/19/2014 DDD (degenerative disc disease), lumbar [M51.36]INVALID FOR*12/19/2014 Lumbar spondylosis [M47.816] INVALID FOR*02/27/2015 Degeneration of lumbar or lumbosacral intervert*INVALID FOR* Lumbago [M54.5] INVALID FOR*12/19/2014 Hip pain [M25.559] INVALID FOR* Lumbosacral neuritis [M54.17] INVALID FOR* Low back pain [M54.5] INVALID FOR*02/27/2015 Enthesopathy of hip region [M76.899] INVALID FOR* Right-sided low back pain with right-sided scia*INVALID FOR* Osteoarthritis of spine with radiculopathy, lum*INVALID FOR* Oropharyngeal dysphagia [R13.12] INVALID FOR* Prescriptions ordered this encounter Disp Refills Start End TRAMADOL 50 MG TABLET 20 t* 0 06/13/2018 06/20/2018 Class: Print RX Route: ORAL Sig: Take 1 tablet by mouth every 6 hours as needed for up to 7 days. SODIUM HYALURONATE 10 MG/ML(MW 2.4-3* 06/13/2018 06/13/2018 Route: IAtc Medications Discontinued During This Encounter traMADol (ULTRAM) 50 mg tablet 20 t* 0 06/06/2018 06/13/2018 Class: Print RX Route: ORAL Sig: Take 1 tablet by mouth every 6 hours as needed for up to 7 days. Disc: Reason for discontinue is not on file. Encounter Status:Closed by JACKIE RADER PA-C on 06/13/18 PROGRESS Observed: 06/06/2018 Status: COMPLETED Source: [place] 10:48 AM [facility] REPOSITORY HNO ID: [id number] Author: Jackie Rader (Pa) Service: (none) Author Type: Physician Yoker Machine Operator Type: Progress Notes Filed: 06/06/2018 10:54 AM Note Text: Procedure note: Euflexxa #2 The risk, benefits and alternatives of injection and no injection therapy were discussed. The patient consented for an injection. Time out was conducted. The injection site was prepped with a Chlorhexadine swab. The left anterolateral joint was injected with a 25 gauge needle with Euflexxa 2 cc . The injection site was then dressed with a bandaid. The patient tolerated the injection well. The patient was instructed to call the office if any adverse local effects occurred or any if any questions or concerns arise. Jackie Rader PA-C Patient called in on 02 June, she was having some pain and swelling in the posterior aspect of her left knee. She was seen at [facility] and had a left lower extremity ultrasound that was negative for DVT. Discussed with patient trying a compression wrap for her left knee Ceballos cyst. PROGRESS Observed: 06/06/2018 Status: COMPLETED Source: [place] 10:31 AM [facility] REPOSITORY HNO ID: [id number] Author: Almaz Naqvi Ma Service: (none) Author Type: (none) Type: Progress Notes Filed: 06/06/2018 10:54 AM Note Text: AMB ROOMING INTAKE FLOWSHEET DATA Risk Screening Do you have concerns about personal safety or safety in the home?: No Pain Pain Score: 10/10 Pain Location: Knee-Left Description: Sharp, Aching Duration Amount of Time: (ongoing) Frequency: Continuous Intervention: Medication Patient here today for Euflexxa injection # 2 to left knee. See chief complaint for lot # and exp date. CNOV Observed: 06/06/2018 Status: COMPLETED Source: [place] 10:30 AM [facility] REPOSITORY Office Visit ([facility]) BRITTANY LORENZO ([id number]) 1940 F Date Time Provider Department 06/06/18 10:30 AM JACKIE RADER (PA) During your visit today, we recorded the following information about you: Almaz Naqvi Ma 06/06/2018 10:54 AM Signed AMB ROOMING INTAKE FLOWSHEET DATA Risk Screening Do you have concerns about personal safety or safety in the home?: No Pain Pain Score: 10/10 Pain Location: Knee-Left Description: Sharp, Aching Duration Amount of Time: (ongoing) Frequency: Continuous Intervention: Medication Patient here today for Euflexxa injection # 2 to left knee. See chief complaint for lot # and exp date. Jackie Rader PA-C 06/06/2018 10:54 AM Signed Procedure note: Euflexxa #2 The risk, benefits and alternatives of injection and no injection therapy were discussed. The patient consented for an injection. Time out was conducted. The injection site was prepped with a Chlorhexadine swab. The left anterolateral joint was injected with a 25 gauge needle with Euflexxa 2 cc . The injection site was then dressed with a bandaid. The patient tolerated the injection well. The patient was instructed to call the office if any adverse local effects occurred or any if any questions or concerns arise. Jackie Rader PA-C Patient called in on 02 June, she was having some pain and swelling in the posterior aspect of her left knee. She was seen at [facility] and had a left lower extremity ultrasound that was negative for DVT. Discussed with patient trying a compression wrap for her left knee Ceballos cyst. Referring Provider: OSIEL FLOWER [[id number]] Allergies As of Date: 06/06/2018 Noted Allergy Reaction WILDA INHIBITORS 05/23/2014 3 - Cough Comments: WILDA cough DOXYCYCLINE 01/22/2012 7 - Swelling Comments: Tongue and feet KEFLEX (CEPHALEXIN) 07/16/2014 11 - Vomiting PENICILLINS 01/22/2011 2 - Rash Comments: edema PERCOCET (OXYCODONE-ACETAMINOPHEN)03/29/2013 8 - GI Upset Comments: Patient has taken, needs to eat prior to taking. SULFA (SULFONAMIDE ANTIBIOTICS) 01/22/2011 2 - Rash TETRACYCLINE 01/22/2011 2 - Rash Comments: difficulty breathing Date Reviewed: 06/06/2018 Reviewed by: Jackie Rader (Pa) - Fully Assessed Reason for Visit: Established Patient [175] Cmt: Euflexxa injection # 2 to left knee Lot # [id number] Exp: 05/01/2019 Visit Diagnoses:Primary osteoarthritis of left knee [M17.12] Acute pain of left knee [M25.562] Order(s):traMADol (ULTRAM) 50 mg tabletTake 1 tablet by mouth every 6 hours as needed for up to 7 days.Disp: 20 tabletRfl: 0 [] sodium hyaluronate 20 mg injection (EUFLEXXA)Disp: Rfl: Prescriptions as of 06/06/2018 Sig: COENZYME Q10 10 MG CAPSULE Take 1 capsule by mouth once * FOLIC ACID 1 MG TABLET Take 1 tablet by mouth once d* TRAMADOL 50 MG TABLET Take 1 tablet by mouth every * DICLOFENAC 1 % TOPICAL GEL Apply 4 g to affected area fo* ONDANSETRON 4 MG DISINTEGRATI* Take 1 tablet by mouth every * GABAPENTIN 600 MG TABLET Take 1 tablet by mouth four t* OMEPRAZOLE 20 MG CAPSULE,YANETH* Take 1 capsule by mouth twice* WARFARIN 5 MG TABLET Per cardiology Patient taking differently: Per cardiology: 4 mg 6 days a* METOPROLOL TARTRATE 100 MG TA* Take 100 mg by mouth once melanie* ISOSORBIDE MONONITRATE ER 120* Take 120 mg by mouth once melanie* LOSARTAN 50 MG TABLET Take 1 tablet by mouth once d* Patient taking differently: Take 100 mg by mouth once melanie* NITROGLYCERIN 0.4 MG SUBLINGU* Dissolve 0.4 mg under the ton* WARFARIN 4 MG TABLET Per Cardiology: 4 mg 6 days * VITAMIN B-12 ORAL Take by mouth. * ROSUVASTATIN 40 MG TABLET Take 40 mg by mouth once alondra* * FUROSEMIDE 40 MG TABLET Take 40 mg by mouth once alondra* * ASPIRIN 81 MG TABLET Take 81 mg by mouth. * CALCIUM + D ORAL Take by mouth. TIZANIDINE 4 MG TABLET Take 1 tablet by mouth every * COMPOUNDED PRESCRIPTION Powerstep gel insert (M77.41* AMITRIPTYLINE 25 MG TABLET Take 1 tablet by mouth daily * ESTRADIOL 0.01% (0.1 MG/GRAM)* Apply pea-sized amount to per* Problem List As Of Date 06/06/2018 Noted Resolved Diaphragmatic hernia without mention of obstruc*INVALID FOR* Acute gastritis without mention of hemorrhage [*INVALID FOR* Dysphagia, unspecified [R13.10] INVALID FOR*11/23/2016 Knee pain [M25.569] INVALID FOR* History of DVT (deep vein thrombosis) [Z86.718] More... Coronary artery disease [I25.10] More... Peripheral neuropathy [G62.9] More... Diabetes mellitus, type 2 [E11.9] Hypertension [I10] Hyperlipidemia [E78.5] Depression [F32.9] Backache, unspecified [M54.9] Arthritis of knee [M17.10] INVALID FOR* Diabetic retinopathy, nonproliferative, moderat* Osteoporosis [M81.0] INVALID FOR* Lumbar radiculopathy [M54.16] INVALID FOR*12/19/2014 DDD (degenerative disc disease), lumbar [M51.36]INVALID FOR*12/19/2014 Lumbar spondylosis [M47.816] INVALID FOR*02/27/2015 Degeneration of lumbar or lumbosacral intervert*INVALID FOR* Lumbago [M54.5] INVALID FOR*12/19/2014 Hip pain [M25.559] INVALID FOR* Lumbosacral neuritis [M54.17] INVALID FOR* Low back pain [M54.5] INVALID FOR*02/27/2015 Enthesopathy of hip region [M76.899] INVALID FOR* Right-sided low back pain with right-sided scia*INVALID FOR* Osteoarthritis of spine with radiculopathy, lum*INVALID FOR* Oropharyngeal dysphagia [R13.12] INVALID FOR* Prescriptions ordered this encounter Disp Refills Start End TRAMADOL 50 MG TABLET 20 t* 0 06/06/2018 06/13/2018 Class: Print RX Route: ORAL Sig: Take 1 tablet by mouth every 6 hours as needed for up to 7 days. SODIUM HYALURONATE 10 MG/ML(MW 2.4-3* 06/06/2018 06/06/2018 Route: IAtc Medications Discontinued During This Encounter traMADol (ULTRAM) 50 mg tablet 20 t* 0 05/30/2018 06/06/2018 Class: Print RX Route: ORAL Sig: Take 1 tablet by mouth every 6 hours as needed for up to 7 days. Disc: Reason for discontinue is not on file. Encounter Status:Closed by JACKIE RADER PA-C on 06/06/18 CV VENOUS LEG LT Observed: 06/02/2018 Status: F [facility] [place] [address] Patient: BRITTANY LORENZO Phone#: : 1940 Age: 77 Gender: F Pt. Type: ER Account: [id number] Location: [facility] Ordering: GAB ROLLINS Exam Date: 06/02/2018/15:54 Family Phys: OSIEL FLOWER Charge Code: [id number] Physician: Hendry Order #: [id number] DLP Dose#: PROCEDURE: VENOUS DOPPLER LT LEG COMPARISON: None. INDICATIONS: Pain TECHNIQUE: Color duplex Doppler ultrasound evaluation analysis was performed in the usual manner. FUEL INJECTION SERVICER: JERRI RISK FACTORS FOR VENOUS DISEASE: EXAMINATION: RIGHT +Present -Reduced o Absent LEFT SPONT PHASIC AUG REFLUX COMP SPONT PHASIC AUG REFLUX COMP + + + o + CFV + + + o + SFJ + FV (prox) + + + o + FV (mid) + FV (dist) + POP V + + + o + T/P TRUNK + + + o + PTV + + + o + PERONEAL V + + + o + GSV + GASTROC SOLEAL V FUEL INJECTION SERVICER'S NOTES: Continued Report - Page 2 of 2 Patient: BRITTANY LORENZO. Phone#: : 1940 Age: 77 Gender: F Pt. Type: ER Account: [id number] Location: 052 Ordering: GAB ROLLINS Exam Date: 06/02/2018/15:54 Family Phys: OSIEL FLOWER Charge Code: [id number] Physician: Hendry Order #: [id number] DLP Dose#: FINDINGS: THROMBI: None visible. COMPRESSIBILITY: Normal. OTHER: Negative. CONCLUSION: 1. No evidence of deep venous thrombosis in the left lower extremity. Dictated by: Claudette Jameson MD on 06/02/2018 at 16:23 Approved by: Claudette Jameson MD on 06/02/2018 at 16:23 EMERGENCY REPORT Observed: 06/02/2018 Status: F Source: [facility] 3:33 PM [facility] EMERGENCY ROOM REPORT NAME ACCOUNT SEX AGE ADMIT DISCHARGE PT MED. RECORD# NUMBER DATE DATE TYPE BJ [id number] F 77 06/02/18 06/02/18 3 BRITTANY Del Castillo [id number] ROOM: ER DATE OF : 1940 DICTATING PHYSICIAN: Gab Rollins CHIEF COMPLAINT: Leg pain and swelling. HISTORY OF PRESENT ILLNESS: The patient states that she has bad arthritis to her left knee. She has had a previous right knee replacement. She saw an ortho PA recently and had an injection in her left knee of gel. This was a couple of days ago, and since then she states she is having more pain. It seems to be focused behind the knee into the proximal calf area. She is able to weight bear, though with pain. She states that she has had a previous DVT to the other and that it felt somewhat like this and she is concerned that she may have that again. No other injuries or complaints. No shortness of breath. PAST MEDICAL HISTORY: Significant for CHF, hypertension, and chronic pain. She has a history of coronary artery disease. PAST SURGICAL HISTORY: Previous coronary artery bypass surgery. MEDICATIONS: Per med rec list. ALLERGIES: Multiple allergies, per allergy list. SOCIAL HISTORY: She lives at home with family, who accompany her here. She does not smoke or drink alcohol. REVIEW OF SYSTEMS: No chest pain. No shortness of breath. No abdominal pain, nausea or vomiting. PHYSICAL EXAMINATION: This is a 77-year-old mildly obese female alert, appropriate, does not appear toxic. Skin is pink, warm, and dry. Vital signs: Temperature 97.5, pulse 78, respirations 20, blood pressure 138/63, and O2 saturation 96%. Examination was generally focused to the left lower extremity. She has a mild joint effusion, but significant degenerative changes on examination, mild diffuse tenderness to the knee, a little more so to the posterior knee, a little fullness to the popliteal area, but no mass. She has some tenderness with palpation across the popliteal area, mild tenderness to the upper gastrocnemius area. No redness, bruising, or ecchymosis. Normal range of motion. Normal neurovascular examination. Page 1 of 2 BRITTANY LORENZO Emergency Room Report DIAGNOSTIC DATA: We proceeded to get a left leg venous Doppler, which was negative for DVT or SVT. EMERGENCY DEPARTMENT COURSE AND TREATMENT: I feel that this is most likely secondary to her degenerative disease and exacerbated by her recent injection. I did give her an injection of some morphine for pain. She initially said she was allergic to morphine, but later said that she is able to tolerate that well. She does have pain medicine at home. DIAGNOSIS: Left knee pain. PLAN/DISPOSITION: She is to follow up with her orthopedic doctor in 2 to 4 days if no better, returning if symptoms worsen. Dictated By: Gab Rollins MD 06/02/18 18:17 JOB #: [id number] Transcribed By: [email or web address] 06/02/18 19:50 Electronically signed by: ALEXANDER Rollins M.D. 06/11/18 07:02 Page 2 of 2 BRITTANY LORENZO Emergency Room Report US-VENOUS DOPPLER LT Observed: 06/02/2018 Status: F Source: [place]G [place] 12:00 AM [facility] [place] REPOSITORY Images were obtained outside of [facility] [id number] PROGRESS Observed: 05/30/2018 Status: COMPLETED Source: [place] 11:41 AM [facility] REPOSITORY HNO ID: [id number] Author: Alta Meyer Ma Service: (none) Author Type: (none) Type: Progress Notes Filed: 05/30/2018 12:00 PM Note Text: 77 year old female here for INACTIVATED INFLUENZA VACCINE. Season Patient is identified by name and date of : Yes [] CONTRAINDICATIONS color enhanced section Age less than 6 months? No Allergy to eggs, chicken, chicken feathers, or chicken dander? No Allergy to thimerosal (a preservative) or formaldehyde, gelatin? No History of severe reaction to any vaccine component or a previous dose of influenza vaccination? No History of Guillain-Gap Syndrome within 6 weeks after a previous influenza vaccine? No Patient is not moderately or severely ill? No Current temperature greater or equal to 100.4F? No History of Bone Marrow Transplant prior 6 months or solid organ transplant in the past 3 months ? No History of fainting after a prior injection or medical procedure? No- ? If patient has fainted in the past, the CDC recommends sitting or lying down for 15 minutes after the vaccination. [] VERIFICATION color enhanced section Was the answer Yes for any of the above contraindications? No contraindications present. Acceptable to proceed with vaccine. Patient/guardian agrees the above answers are true to the best of their knowledge? Yes Flu vaccine information sheet given? Yes See immunization activity in [facility] for details of immunizations adminstered today. Patient age: [age] year old For The Flu Season 6-35 months old: Fluzone 0.25 ml - IM (Preservative Free) 3 years of age: Fluzone 0.5 ml - IM (Preservative Free) 3 years and older: Fluzone 0.5 ml- IM-(with Preservatives) 65+ years old: 2-49 years old Fluzone High-Dose 0.5 ml - IM (Preservative Free) FLUMIST- intranasal REMEMBER: If patient is less than 9 years of age and this is the first vaccine of Influenza to be received in any flu season, they should receive a second dose in one months time. CNOV Observed: 05/30/2018 Status: COMPLETED Source: [place] 11:20 AM [facility]IT[facility] ([id number]) 1940 F Date Time Provider Department 05/30/18 11:20 AM [facility] During your visit today, we recorded the following information about you: Alta Nirmal Coffey 05/30/2018 12:00 PM Signed 77 year old female here for INACTIVATED INFLUENZA VACCINE. [id number] Season Patient is identified by name and date of : Yes [] CONTRAINDICATIONS color enhanced section Age less than 6 months? No Allergy to eggs, chicken, chicken feathers, or chicken dander? No Allergy to thimerosal (a preservative) or formaldehyde, gelatin? No History of severe reaction to any vaccine component or a previous dose of influenza vaccination? No History of Guillain-Gap Syndrome within 6 weeks after a previous influenza vaccine? No Patient is not moderately or severely ill? No Current temperature greater or equal to 100.4F? No History of Bone Marrow Transplant prior 6 months or solid organ transplant in the past 3 months ? No History of fainting after a prior injection or medical procedure? No- ? If patient has fainted in the past, the CDC recommends sitting or lying down for 15 minutes after the vaccination. [] VERIFICATION color enhanced section Was the answer Yes for any of the above contraindications? No contraindications present. Acceptable to proceed with vaccine. Patient/guardian agrees the above answers are true to the best of their knowledge? Yes Flu vaccine information sheet given? Yes See immunization activity in [facility] for details of immunizations adminstered today. Patient age: [age] year old For The [id number] Flu Season 6-35 months old: Fluzone 0.25 ml - IM (Preservative Free) 3 years of age: Fluzone 0.5 ml - IM (Preservative Free) 3 years and older: Fluzone 0.5 ml- IM-(with Preservatives) 65+ years old: 2-49 years old Fluzone High-Dose 0.5 ml - IM (Preservative Free) FLUMIST- intranasal REMEMBER: If patient is less than 9 years of age and this is the first vaccine of Influenza to be received in any flu season, they should receive a second dose in one months time. Referring Provider: SELF [[id number]] Allergies As of Date: 05/30/2018 Noted Allergy Reaction WILDA INHIBITORS 05/23/2014 3 - Cough Comments: WILDA cough DOXYCYCLINE 01/22/2012 7 - Swelling Comments: Tongue and feet KEFLEX (CEPHALEXIN) 07/16/2014 11 - Vomiting PENICILLINS 01/22/2011 2 - Rash Comments: edema PERCOCET (OXYCODONE-ACETAMINOPHEN)03/29/2013 8 - GI Upset Comments: Patient has taken, needs to eat prior to taking. SULFA (SULFONAMIDE ANTIBIOTICS) 01/22/2011 2 - Rash TETRACYCLINE 01/22/2011 2 - Rash Comments: difficulty breathing Date Reviewed: 05/30/2018 Reviewed by: Jackie Rader (Pa) - Fully Assessed Reason for Visit: Imm/Inj [58] Cmt: FLU SHOT Imm/Inj [58] Cmt: Flu Vaccine Reason For Visit History Recorded Primary Visit Diagnosis:Need for vaccination [Z23] Prescriptions as of 05/30/2018 Sig: TRAMADOL 50 MG TABLET Take 1 tablet by mouth every * HYDROCODONE 5 MG-ACETAMINOPHE* Take 1 tablet by mouth every * DICLOFENAC 1 % TOPICAL GEL Apply 4 g to affected area fo* ONDANSETRON 4 MG DISINTEGRATI* Take 1 tablet by mouth every * TIZANIDINE 4 MG TABLET Take 1 tablet by mouth every * COMPOUNDED PRESCRIPTION Powerstep gel insert (M77.41* AMITRIPTYLINE 25 MG TABLET Take 1 tablet by mouth daily * GABAPENTIN 600 MG TABLET Take 1 tablet by mouth four t* ESTRADIOL 0.01% (0.1 MG/GRAM)* Apply pea-sized amount to per* OMEPRAZOLE 20 MG CAPSULE,YANETH* Take 1 capsule by mouth twice* WARFARIN 5 MG TABLET Per cardiology Patient taking differently: Per cardiology: 4 mg 6 days a* METOPROLOL TARTRATE 100 MG TA* Take 100 mg by mouth once melanie* ISOSORBIDE MONONITRATE ER 120* Take 120 mg by mouth once melanie* LOSARTAN 50 MG TABLET Take 1 tablet by mouth once d* Patient taking differently: Take 100 mg by mouth once melanie* NITROGLYCERIN 0.4 MG SUBLINGU* Dissolve 0.4 mg under the ton* WARFARIN 4 MG TABLET Per Cardiology: 4 mg 6 days * VITAMIN B-12 ORAL Take by mouth. * ROSUVASTATIN 40 MG TABLET Take 40 mg by mouth once alondra* * FUROSEMIDE 40 MG TABLET Take 40 mg by mouth once alondra* * ASPIRIN 81 MG TABLET Take 81 mg by mouth. * CALCIUM + D ORAL Take by mouth. Problem List As Of Date 05/30/2018 Noted Resolved Diaphragmatic hernia without mention of obstruc*INVALID FOR* Acute gastritis without mention of hemorrhage [*INVALID FOR* Dysphagia, unspecified [R13.10] INVALID FOR*11/23/2016 Knee pain [M25.569] INVALID FOR* History of DVT (deep vein thrombosis) [Z86.718] More... Coronary artery disease [I25.10] More... Peripheral neuropathy [G62.9] More... Diabetes mellitus, type 2 [E11.9] Hypertension [I10] Hyperlipidemia [E78.5] Depression [F32.9] Backache, unspecified [M54.9] Arthritis of knee [M17.10] INVALID FOR* Diabetic retinopathy, nonproliferative, moderat* Osteoporosis [M81.0] INVALID FOR* Lumbar radiculopathy [M54.16] INVALID FOR*12/19/2014 DDD (degenerative disc disease), lumbar [M51.36]INVALID FOR*12/19/2014 Lumbar spondylosis [M47.816] INVALID FOR*02/27/2015 Degeneration of lumbar or lumbosacral intervert*INVALID FOR* Lumbago [M54.5] INVALID FOR*12/19/2014 Hip pain [M25.559] INVALID FOR* Lumbosacral neuritis [M54.17] INVALID FOR* Low back pain [M54.5] INVALID FOR*02/27/2015 Enthesopathy of hip region [M76.899] INVALID FOR* Right-sided low back pain with right-sided scia*INVALID FOR* Osteoarthritis of spine with radiculopathy, lum*INVALID FOR* Oropharyngeal dysphagia [R13.12] INVALID FOR* Encounter Status:Closed by ALTA MEYER MA on 05/30/18 PROGRESS Observed: 05/30/2018 Status: COMPLETED Source: [place] 10:45 AM [facility] REPOSITORY [facility] ID: [id number] Author: Jackie Rader (Pa) Service: (none) Author Type: Physician Yoker Machine Operator Type: Progress Notes Filed: 05/30/2018 10:57 AM Note Text: Jackie Rader PA-C Department of Orthopaedics Orthopaedics [address] [facility] [address] Dept: [phone] Dept May 30, 2018 CHIEF COMPLAINT: Established Patient (Left knee pain and swelling REF: Jacqui Johnson ) Ms. Brittany Lorenzo is a 77 year old female she presents with chronic left knee pain. Pain today is a 10 out of 10 aching, sharpness. She is having constant pain that is worse with weightbearing, she occasionally uses a walker to get around her house. Finds the heating pad to be somewhat helpful but notes that the pain returns as soon as she stops using it. The patient has tried Voltaren, she is unable to take oral anti-inflammatories because of coumadin use Patient had a corticosteroid injection on May 17 with her primary care provider. She states that previous cortisone injections with Dr. Daley and Dr. He were helpful but that recent injection was not helpful. The patient is status post right partial knee replacement with the provider at [facility] who has since retired. Patient notes that she had a right leg DVT following that surgery. She also has a history of pulmonary embolism and has had coronary artery bypass grafting, her pharmacy services director is Dr. Mendez in [place]. ASSESSMENT: M17.12 Primary osteoarthritis of left knee (primary encounter diagnosis) M25.562 Acute pain of left knee PLAN: Patient is interested in trying viscosupplmentation. She is also interested in total joint arthroplasty, we discussed that given her history and comorbidities that she would need to have surgery at the [facility]. She agrees to consult with one of the surgeons at [facility] if she does not receive any relief in her knee pain from the viscous supplementation. She was provided with a prescription for hydrocodone by her primary care provider, she is requesting refill at this time. We discussed having her try time tramadol instead. Ms. Brittany Lorenzo was advised as to contrast therapies and/or to take analgesics/anti-inflammatories as needed and all contraindications were reviewed. OBJECTIVE: Ms. Brittany Lorenzo is a pleasant 77 year old in no apparent distress. Gen:There were no vitals taken for this visit. nl development, obese, no deformities ENT: Normocephalic, normal hearing, moist mucosa CV: Pulses:DP/PT= 2+ and symmetric, capillary refill < 2 secs, no peripheral edema/varicosities Skin: no rash, bruising or lesions. Good turgor. Psych: cooperative and appropriate, alert and oriented x 3, good mood and affect. Musculoskeletal: KNEE EXAM: Left: Alignment: Neutral Range of motion is lacking a few degrees secondary to tight hamstrings degrees in extension and 110 degrees of flexion. Extension La degrees Pain with ROM: Yes Effusion: Mild Tender to the palpation of Medial femoral condyle, Lateral femoral condyle, Medial joint line and Lateral joint line Pain with patellar compression: Yes Stability: Anterior/Posterior stable and Varus/Valgus stable Hip Exam: flexion to 100+ degrees, full extension, internal/external rotation adequate and no pain with log roll Neurovascular Status: Sensation Intact, Moves foot and ankle up AND down and 2+ dorsalis pedis Procedure note: The risk, benefits and alternatives of injection and no injection therapy were discussed. The patient consented for an injection. Time out was conducted. The injection site was prepped with a Chlorhexadine swab. The left anteriolateral joint was injected with a 25 gauge needle with Euflexxa 2 cc . The injection site was then dressed with a bandaid. The patient tolerated the injection well. The patient was instructed to call the office if any adverse local effects occurred or any if any questions or concerns arise. Jackie Rader PA-C Imaging: IMPRESSION: Findings similar to the previous study. Cigarette Book Maker: MILDRED ? Transcribe Date/Time: Jul ?3:24P Dictated by : RYLEE NEGRETE, DO This examination was interpreted and the report reviewed and electronically signed by: RYLEE NEGRETE, DO on Jul ?3:25PM ?EST Results-Findings * * *Final Report* * * DATE OF EXAM: Jul 11:17AM ? WOX ? 5202 ?- ?XR KNEE 4V AP/PA BOTH+LAT/DIGNA LT ?/ PROCEDURE REASON: multiple diagnoses ?? ? * * * * Physician Interpretation * * * * ?Bilateral knees HISTORY: ?76 years old HISTORY: Pain in right knee Pain in left knee pt states pain in left knee for awhile then fell a week ago pain lower anterior to medial side of left knee. TECHNIQUE: Images: ?XR KNEE 4V AP/PA BOTH+LAT/DIGNA LT, XR KNEE 4V AP/PA BOTH+LAT/DIGNA RT Comparison: ?01/07/2017. RESULT: Findings: Right side: ?No fractures or dislocations are seen. The components of the RIGHT medial compartment arthroplasty are in good alignment with the respective bones and each other. There is no evidence of loosening of the components. ?Moderate narrowing lateral compartment. ? Marked narrowing patellofemoral compartment moderate spurring anterior superior aspect of patella Left side: ?No fractures or dislocations are seen. Severe narrowing medial compartment. ?Moderate narrowing lateral compartment. ?Marked narrowing patellofemoral compartment. ?Moderate spurring anterior superior aspect of patella Supporting Subjective Information Below: Past Surgical History: PAST SURGICAL HISTORY Procedure Laterality Date - APPENDECTOMY - BREAST BIOPSY left, aspiration and excision of cyst - COLONOSCOP W/ OR W/O [facility] SPEC 12 years ago Colonoscopy - COLONOSCOP W/ OR W/O BRSH SPEC 03/30/11 - EGD W/O BRSH SPECIMEN W/BX 03/30/11 - EGD W/O OR W/BRUSH/WASH 11/22/2013 EGD - EGD W/O OR W/BRUSH/WASH 04/24/2016 EGD - ESOPHAGEAL DILATATION 03/30/11 - HEART CATHETERIZATION - HEART SURGERY HX - LAPAROSCOPIC CHOLEYCYSTECTOMY 1997 Cholecystectomy, lap - PAST SURGICAL HISTORY OF 1958 bowel surgery, perforation - PAST SURGICAL HISTORY OF 2000 left knee laparthroscopy - PAST SURGICAL HISTORY OF 07/26/14 lumbar pain injections - REDUCTION OF LARGE BREAST 1995 - REPAIR HEART WND W CP BYPASS 2002 bypass x 6, Dr. Becerra[facility] - TOTAL ABDOM HYSTERECTOMY 1990 TATIANA/BSO; benign menorrhagia, endometriosis - TOTAL KNEE REPLACEMENT Right 2007 right partial knee replacement/ Dr. Hussein Medications: Current Outpatient Prescriptions: diclofenac sodium (VOLTAREN) 1 % topical gel Apply 4 g to affected area four times daily. gabapentin (NEURONTIN) 600 mg tablet Take 1 tablet by mouth four times daily for 90 days. omeprazole (PRILOSEC) 20 mg capsule Take 1 capsule by mouth twice daily. warfarin (COUMADIN) 5 mg tablet Per cardiology (Patient taking differently: Per cardiology: 4 mg 6 days a week and 2 mg once a week. ) metoprolol tartrate, short acting, (LOPRESSOR) 100 mg tablet Take 100 mg by mouth once daily. isosorbide mononitrate ER (IMDUR) 120 mg 24 hr tablet Take 120 mg by mouth once daily. losartan (COZAAR) 50 mg tablet Take 1 tablet by mouth once daily. (Patient taking differently: Take 100 mg by mouth once daily. ) nitroglycerin sublingual (NITROQUICK) 0.4 mg SL tablet Dissolve 0.4 mg under the tongue every 5 minutes as needed. Up to 3 max warfarin 4 mg tablet Per Cardiology: 4 mg 6 days a week and 2 mg once a week. CYANOCOBALAMIN, VITAMIN B-12, (VITAMIN B-12 ORAL) Take by mouth. rosuvastatin (CRESTOR) 40 mg tablet Take 40 mg by mouth once daily. furosemide (LASIX) 40 mg tablet Take 40 mg by mouth once daily. Aspirin 81 mg ORAL Tab Take 81 mg by mouth. CALCIUM CARBONATE/VITAMIN D3 (CALCIUM + D ORAL) Take by mouth. traMADol (ULTRAM) 50 mg tablet Take 1 tablet by mouth every 6 hours as needed for up to 7 days. HYDROcodone-acetaminophen (NORCO) 5-325 mg per tablet Take 1 tablet by mouth every 6 hours as needed for Pain for up to 7 days. ondansetron orally disintegrating (ZOFRAN ODT) 4 mg disintegrating tablet Take 1 tablet by mouth every 6 hours as needed for Nausea/Vomiting. tiZANidine (ZANAFLEX) 4 mg tablet Take 1 tablet by mouth every 8 hours as needed. COMPOUNDED PRESCRIPTION Powerstep gel insert(M77.41, M77.42) Metatarsalgia of both feet (primary encounter diagnosis)(M25.579) Pain in joint involving ankle and foot, unspecified laterality(M21.41, M21.42) Pes planus of both feet amitriptyline (ELAVIL) 25 mg tablet Take 1 tablet by mouth daily at bedtime. estradiol (ESTRACE) 0.01 % (0.1 mg/gram) vaginal cream Apply pea-sized amount to perineum and 1 applicator vaginally twice a week for atrophic vaginitis. No current facility-administered medications for this visit. Allergies: Wilda Inhibitors; Doxycycline; Keflex [Cephalexin]; Penicillins; Percocet [Oxycodone-Acetaminophen]; Sulfa (Sulfonamide Antibiotics); Tetracycline ROS: General (negative for fatigue, malaise, weight loss/gain) HEENT (negative for headache, earache, recent vision changes, sinus pain, sore throat) Respiratory (no recent shortness of breath, hemoptysis) CV (negative for chest tightness, palpitations) Musculoskeletal (see HPI) Psych (no depression, anxiety) This note was partially generated using KrowdPad voice recognition system, and there may be some incorrect words, spellings, and punctuation that were not noted in checking the note before saving. Jackie Rader PA-C PROGRESS Observed: 05/30/2018 Status: COMPLETED Source: [place] 9:56 AM [facility] [place] REPOSITORY O ID: [id number] Author: Almaz Naqvi Ma Service: (none) Author Type: (none) Type: Progress Notes Filed: 05/30/2018 10:57 AM Note Text: AMB ROOMING INTAKE FLOWSHEET DATA Risk Screening Do you have concerns about personal safety or safety in the home?: No Pain Pain Score: 10/10 Pain Location: Knee-Left Description: Aching, Sharp Duration Amount of Time: (ongoing) Frequency: Continuous Intervention: Medication Patient here today for evaluation of left knee pain and swelling. She did get a cortisone injection on 05/17/2018 by Rick Johnson without relief. She will sometimes use a walker at home. X-ray at [facility] on 07/20/2017. CNOV Observed: 05/30/2018 Status: COMPLETED Source: [place] 9:40 AM [facility] REPOSITORY Office Visit (ERENWS) BRITTANY LORENZO ([id number]) 1940 F Date Time Provider Department 05/30/18 9:40 AM JACKIE RADER (PA) During your visit today, we recorded the following information about you: Almaz Naqvi Ma 05/30/2018 10:57 AM Signed AMB ROOMING INTAKE FLOWSHEET DATA Risk Screening Do you have concerns about personal safety or safety in the home?: No Pain Pain Score: 10/10 Pain Location: Knee-Left Description: Aching, Sharp Duration Amount of Time: (ongoing) Frequency: Continuous Intervention: Medication Patient here today for evaluation of left knee pain and swelling. She did get a cortisone injection on 05/17/2018 by Rick Johnson without relief. She will sometimes use a walker at home. X-ray at [facility] on 07/20/2017. Jackie Rader PA-C 05/30/2018 10:57 AM Signed Jackie Rader PA-C Department of Orthopaedics Orthopaedics [address] [place] [id number] Dept: [phone] Dept May 30, 2018 CHIEF COMPLAINT: Established Patient (Left knee pain and swelling REF: Jacqui Johnson ) Ms. Brittany Lorenzo is a 77 year old female she presents with chronic left knee pain. Pain today is a 10 out of 10 aching, sharpness. She is having constant pain that is worse with weightbearing, she occasionally uses a walker to get around her house. Finds the heating pad to be somewhat helpful but notes that the pain returns as soon as she stops using it. The patient has tried Voltaren, she is unable to take oral anti-inflammatories because of coumadin use Patient had a corticosteroid injection on May 17 with her primary care provider. She states that previous cortisone injections with Dr. Daley and Dr. He were helpful but that recent injection was not helpful. The patient is status post right partial knee replacement with the provider at [place] [facility] who has since retired. Patient notes that she had a right leg DVT following that surgery. She also has a history of pulmonary embolism and has had coronary artery bypass grafting, her pharmacy services director is Dr. Mendez in [place]. ASSESSMENT: M17.12 Primary osteoarthritis of left knee (primary encounter diagnosis) M25.562 Acute pain of left knee PLAN: Patient is interested in trying viscosupplmentation. She is also interested in total joint arthroplasty, we discussed that given her history and comorbidities that she would need to have surgery at the [facility]. She agrees to consult with one of the surgeons at [facility] if she does not receive any relief in her knee pain from the viscous supplementation. She was provided with a prescription for hydrocodone by her primary care provider, she is requesting refill at this time. We discussed having her try time tramadol instead. Ms. Brittany Lorenzo was advised as to contrast therapies and/or to take analgesics/anti-inflammatories as needed and all contraindications were reviewed. OBJECTIVE: Ms. Brittany Lorenzo is a pleasant 77 year old in no apparent distress. Gen:There were no vitals taken for this visit. nl development, obese, no deformities ENT: Normocephalic, normal hearing, moist mucosa CV: Pulses:DP/PT= 2+ and symmetric, capillary refill < 2 secs, no peripheral edema/varicosities Skin: no rash, bruising or lesions. Good turgor. Psych: cooperative and appropriate, alert and oriented x 3, good mood and affect. Musculoskeletal: KNEE EXAM: Left: Alignment: Neutral Range of motion is lacking a few degrees secondary to tight hamstrings degrees in extension and 110 degrees of flexion. Extension La degrees Pain with ROM: Yes Effusion: Mild Tender to the palpation of Medial femoral condyle, Lateral femoral condyle, Medial joint line and Lateral joint line Pain with patellar compression: Yes Stability: Anterior/Posterior stable and Varus/Valgus stable Hip Exam: flexion to 100+ degrees, full extension, internal/external rotation adequate and no pain with log roll Neurovascular Status: Sensation Intact, Moves foot and ankle up AND down and 2+ dorsalis pedis Procedure note: The risk, benefits and alternatives of injection and no injection therapy were discussed. The patient consented for an injection. Time out was conducted. The injection site was prepped with a Chlorhexadine swab. The left anteriolateral joint was injected with a 25 gauge needle with Euflexxa 2 cc . The injection site was then dressed with a bandaid. The patient tolerated the injection well. The patient was instructed to call the office if any adverse local effects occurred or any if any questions or concerns arise. Jackie Rader PA-C Imaging: IMPRESSION: Findings similar to the previous study. Cigarette Book Maker: MILDRED ? Transcribe Date/Time: Jul ?3:24P Dictated by : RYLEE NEGRETE, DO This examination was interpreted and the report reviewed and electronically signed by: RYLEE NEGRETE, DO on Jul ?3:25PM ?EST Results-Findings * * *Final Report* * * DATE OF EXAM: Jul 11:17AM ? WOX ? 5202 ?- ?XR KNEE 4V AP/PA BOTH+LAT/DIGNA LT ?/ PROCEDURE REASON: multiple diagnoses ?? ? * * * * Physician Interpretation * * * * ?Bilateral knees HISTORY: ?76 years old HISTORY: Pain in right knee Pain in left knee pt states pain in left knee for awhile then fell a week ago pain lower anterior to medial side of left knee. TECHNIQUE: Images: ?XR KNEE 4V AP/PA BOTH+LAT/DIGNA LT, XR KNEE 4V AP/PA BOTH+LAT/DIGNA RT Comparison: ?01/07/2017. RESULT: Findings: Right side: ?No fractures or dislocations are seen. The components of the RIGHT medial compartment arthroplasty are in good alignment with the respective bones and each other. There is no evidence of loosening of the components. ?Moderate narrowing lateral compartment. ? Marked narrowing patellofemoral compartment moderate spurring anterior superior aspect of patella Left side: ?No fractures or dislocations are seen. Severe narrowing medial compartment. ?Moderate narrowing lateral compartment. ?Marked narrowing patellofemoral compartment. ?Moderate spurring anterior superior aspect of patella Supporting Subjective Information Below: Past Surgical History: PAST SURGICAL HISTORY Procedure Laterality Date - APPENDECTOMY - BREAST BIOPSY left, aspiration and excision of cyst - COLONOSCOP W/ OR W/O BRSH SPEC 12 years ago Colonoscopy - COLONOSCOP W/ OR W/O BRSH SPEC 03/30/11 - EGD W/O BRSH SPECIMEN W/BX 03/30/11 - EGD W/O OR W/BRUSH/WASH 11/22/2013 EGD - EGD W/O OR W/BRUSH/WASH 04/24/2016 EGD - ESOPHAGEAL DILATATION 03/30/11 - HEART CATHETERIZATION - HEART SURGERY HX - LAPAROSCOPIC CHOLEYCYSTECTOMY 1997 Cholecystectomy, lap - PAST SURGICAL HISTORY OF 1958 bowel surgery, perforation - PAST SURGICAL HISTORY OF 2000 left knee laparthroscopy - PAST SURGICAL HISTORY OF 07/26/14 lumbar pain injections - REDUCTION OF LARGE BREAST 1995 - REPAIR HEART WND W CP BYPASS 2002 bypass x 6, Dr. Becerra[facility] - TOTAL ABDOM HYSTERECTOMY 1990 TATIANA/BSO; benign menorrhagia, endometriosis - TOTAL KNEE REPLACEMENT Right 2007 right partial knee replacement/ Dr. Hussein Medications: Current Outpatient Prescriptions: diclofenac sodium (VOLTAREN) 1 % topical gel Apply 4 g to affected area four times daily. gabapentin (NEURONTIN) 600 mg tablet Take 1 tablet by mouth four times daily for 90 days. omeprazole (PRILOSEC) 20 mg capsule Take 1 capsule by mouth twice daily. warfarin (COUMADIN) 5 mg tablet Per cardiology (Patient taking differently: Per cardiology: 4 mg 6 days a week and 2 mg once a week. ) metoprolol tartrate, short acting, (LOPRESSOR) 100 mg tablet Take 100 mg by mouth once daily. isosorbide mononitrate ER (IMDUR) 120 mg 24 hr tablet Take 120 mg by mouth once daily. losartan (COZAAR) 50 mg tablet Take 1 tablet by mouth once daily. (Patient taking differently: Take 100 mg by mouth once daily. ) nitroglycerin sublingual (NITROQUICK) 0.4 mg SL tablet Dissolve 0.4 mg under the tongue every 5 minutes as needed. Up to 3 max warfarin 4 mg tablet Per Cardiology: 4 mg 6 days a week and 2 mg once a week. CYANOCOBALAMIN, VITAMIN B-12, (VITAMIN B-12 ORAL) Take by mouth. rosuvastatin (CRESTOR) 40 mg tablet Take 40 mg by mouth once daily. furosemide (LASIX) 40 mg tablet Take 40 mg by mouth once daily. Aspirin 81 mg ORAL Tab Take 81 mg by mouth. CALCIUM CARBONATE/VITAMIN D3 (CALCIUM + D ORAL) Take by mouth. traMADol (ULTRAM) 50 mg tablet Take 1 tablet by mouth every 6 hours as needed for up to 7 days. HYDROcodone-acetaminophen (NORCO) 5-325 mg per tablet Take 1 tablet by mouth every 6 hours as needed for Pain for up to 7 days. ondansetron orally disintegrating (ZOFRAN ODT) 4 mg disintegrating tablet Take 1 tablet by mouth every 6 hours as needed for Nausea/Vomiting. tiZANidine (ZANAFLEX) 4 mg tablet Take 1 tablet by mouth every 8 hours as needed. COMPOUNDED PRESCRIPTION Powerstep gel insert(M77.41, M77.42) Metatarsalgia of both feet (primary encounter diagnosis)(M25.579) Pain in joint involving ankle and foot, unspecified laterality(M21.41, M21.42) Pes planus of both feet amitriptyline (ELAVIL) 25 mg tablet Take 1 tablet by mouth daily at bedtime. estradiol (ESTRACE) 0.01 % (0.1 mg/gram) vaginal cream Apply pea-sized amount to perineum and 1 applicator vaginally twice a week for atrophic vaginitis. No current facility-administered medications for this visit. Allergies: Wilda Inhibitors; Doxycycline; Keflex [Cephalexin]; Penicillins; Percocet [Oxycodone-Acetaminophen]; Sulfa (Sulfonamide Antibiotics); Tetracycline ROS: General (negative for fatigue, malaise, weight loss/gain) HEENT (negative for headache, earache, recent vision changes, sinus pain, sore throat) Respiratory (no recent shortness of breath, hemoptysis) CV (negative for chest tightness, palpitations) Musculoskeletal (see HPI) Psych (no depression, anxiety) This note was partially generated using KrowdPad voice recognition system, and there may be some incorrect words, spellings, and punctuation that were not noted in checking the note before saving. Jackie Rader PA-C Referring Provider: ROGELIO DALEY [[id number]] Allergies As of Date: 05/30/2018 Noted Allergy Reaction WILDA INHIBITORS 05/23/2014 3 - Cough Comments: WILDA cough DOXYCYCLINE 01/22/2012 7 - Swelling Comments: Tongue and feet KEFLEX (CEPHALEXIN) 07/16/2014 11 - Vomiting PENICILLINS 01/22/2011 2 - Rash Comments: edema PERCOCET (OXYCODONE-ACETAMINOPHEN)03/29/2013 8 - GI Upset Comments: Patient has taken, needs to eat prior to taking. SULFA (SULFONAMIDE ANTIBIOTICS) 01/22/2011 2 - Rash TETRACYCLINE 01/22/2011 2 - Rash Comments: difficulty breathing Date Reviewed: 05/30/2018 Reviewed by: Jackie Rader (Pa) - Fully Assessed Reason for Visit: Established Patient [175] Cmt: Left knee pain and swelling REF: Jacqui Johnson Primary Visit Diagnosis:Primary osteoarthritis of left knee [M17.12] Other Visit Diagnosis:Acute pain of left knee [M25.562] Order(s):traMADol (ULTRAM) 50 mg tabletTake 1 tablet by mouth every 6 hours as needed for up to 7 days.Disp: 20 tabletRfl: 0 sodium hyaluronate 20 mg injection (EUFLEXXA)Disp: Rfl: Prescriptions as of 05/30/2018 Sig: DICLOFENAC 1 % TOPICAL GEL Apply 4 g to affected area fo* GABAPENTIN 600 MG TABLET Take 1 tablet by mouth four t* OMEPRAZOLE 20 MG CAPSULE,YANETH* Take 1 capsule by mouth twice* WARFARIN 5 MG TABLET Per cardiology Patient taking differently: Per cardiology: 4 mg 6 days a* METOPROLOL TARTRATE 100 MG TA* Take 100 mg by mouth once melanie* ISOSORBIDE MONONITRATE ER 120* Take 120 mg by mouth once melanie* LOSARTAN 50 MG TABLET Take 1 tablet by mouth once d* Patient taking differently: Take 100 mg by mouth once melanie* NITROGLYCERIN 0.4 MG SUBLINGU* Dissolve 0.4 mg under the ton* WARFARIN 4 MG TABLET Per Cardiology: 4 mg 6 days * VITAMIN B-12 ORAL Take by mouth. * ROSUVASTATIN 40 MG TABLET Take 40 mg by mouth once alondra* * FUROSEMIDE 40 MG TABLET Take 40 mg by mouth once alondra* * ASPIRIN 81 MG TABLET Take 81 mg by mouth. * CALCIUM + D ORAL Take by mouth. TRAMADOL 50 MG TABLET Take 1 tablet by mouth every * HYDROCODONE 5 MG-ACETAMINOPHE* Take 1 tablet by mouth every * ONDANSETRON 4 MG DISINTEGRATI* Take 1 tablet by mouth every * TIZANIDINE 4 MG TABLET Take 1 tablet by mouth every * COMPOUNDED PRESCRIPTION Powerstep gel insert (M77.41* AMITRIPTYLINE 25 MG TABLET Take 1 tablet by mouth daily * ESTRADIOL 0.01% (0.1 MG/GRAM)* Apply pea-sized amount to per* Medication notes this encounter HYDROCODONE 5 MG-ACETAMINOPHEN 325 MG TABLET >> Almaz Naqvi Ma 05/30/2018 9:54 AM >> ALMAZ NAQVI MA WedMay 30, 2018 9:54 AM Out of medication. AMITRIPTYLINE 25 MG TABLET >> Almaz Naqvi Ma 05/30/2018 9:54 AM >> ALMAZ NAQVI MA WedMay 30, 2018 9:54 AM Not taking. ESTRADIOL 0.01% (0.1 MG/GRAM) VAGINAL CREAM >> Almaz Naqvi Ma 05/30/2018 9:55 AM >> ALMAZ NAQVI MA WedMay 30, 2018 9:55 AM Uses PRN. Problem List As Of Date 05/30/2018 Noted Resolved Diaphragmatic hernia without mention of obstruc*INVALID FOR* Acute gastritis without mention of hemorrhage [*INVALID FOR* Dysphagia, unspecified [R13.10] INVALID FOR*11/23/2016 Knee pain [M25.569] INVALID FOR* History of DVT (deep vein thrombosis) [Z86.718] More... Coronary artery disease [I25.10] More... Peripheral neuropathy [G62.9] More... Diabetes mellitus, type 2 [E11.9] Hypertension [I10] Hyperlipidemia [E78.5] Depression [F32.9] Backache, unspecified [M54.9] Arthritis of knee [M17.10] INVALID FOR* Diabetic retinopathy, nonproliferative, moderat* Osteoporosis [M81.0] INVALID FOR* Lumbar radiculopathy [M54.16] INVALID FOR*12/19/2014 DDD (degenerative disc disease), lumbar [M51.36]INVALID FOR*12/19/2014 Lumbar spondylosis [M47.816] INVALID FOR*02/27/2015 Degeneration of lumbar or lumbosacral intervert*INVALID FOR* Lumbago [M54.5] INVALID FOR*12/19/2014 Hip pain [M25.559] INVALID FOR* Lumbosacral neuritis [M54.17] INVALID FOR* Low back pain [M54.5] INVALID FOR*02/27/2015 Enthesopathy of hip region [M76.899] INVALID FOR* Right-sided low back pain with right-sided scia*INVALID FOR* Osteoarthritis of spine with radiculopathy, lum*INVALID FOR* Oropharyngeal dysphagia [R13.12] INVALID FOR* Prescriptions ordered this encounter Disp Refills Start End TRAMADOL 50 MG TABLET 20 t* 0 05/30/2018 06/06/2018 Class: Print RX Route: ORAL Sig: Take 1 tablet by mouth every 6 hours as needed for up to 7 days. SODIUM HYALURONATE 10 MG/ML(MW 2.4-3* 05/30/2018 05/30/2018 Route: [facility] Encounter Status:Closed by JACKIE RADER PA-C on 05/30/18 PROGRESS Observed: 05/25/2018 Status: COMPLETED Source: [place] 2:44 PM [facility] [place] REPOSITORY O ID: [id number] Author: Magdalene Johnson Service: (none) Author Type: Physician Yoker Machine Operator Type: Progress Notes Filed: 05/25/2018 3:12 PM Note Text: 77 year old female with c/o excruciating pain in left knee. Has appt Wednesday with Jackie Rader Wednesday. Stated that it was improved on leaving and had improved gait. Over the weekend went to control a [place] [facility] where she received a prescription for Delaplane which helped. Patient is asking if she have a prescription to tide her over until she sees orthopedist. HISTORIES FAMILY HISTORY Problem Relation Age of Onset - Heart Mother - Cancer Father of esophageal cancer PAST MEDICAL HISTORY Diagnosis Date - Backache, unspecified In pain management with Dr. Reyna - Cardiomyopathy (HCC) - Compression fracture of L4 lumbar vertebra (HCC) Dr. Polo prescribing pain meds - Coronary artery disease Dr Mendez; s/p CABG, no IA - Depression - Diabetes mellitus, type 2 (HCC) - Diabetic retinopathy, nonproliferative, moderate (HCC) - Hiatal hernia - History of DVT (deep vein thrombosis) cardiology manages, coumadin. after CABG(PE), (L leg) heart cath, and (R leg) knee surgery - Hyperlipidemia - Hypertension - Pain management Sees Dr. Reyna at [facility] for back - Peripheral neuropathy - Shortness of breath PAST SURGICAL HISTORY Procedure Laterality Date - APPENDECTOMY - BREAST BIOPSY left, aspiration and excision of cyst - COLONOSCOP W/ OR W/O [facility] SPEC 12 years ago Colonoscopy - COLONOSCOP W/ OR W/O BRSH SPEC 03/30/11 - EGD W/O BRSH SPECIMEN W/BX 03/30/11 - EGD W/O OR W/BRUSH/WASH 11/22/2013 EGD - EGD W/O OR W/BRUSH/WASH 04/24/2016 EGD - ESOPHAGEAL DILATATION 03/30/11 - HEART CATHETERIZATION - HEART SURGERY HX - LAPAROSCOPIC CHOLEYCYSTECTOMY 1997 Cholecystectomy, lap - PAST SURGICAL HISTORY OF 1958 bowel surgery, perforation - PAST SURGICAL HISTORY OF 2000 left knee laparthroscopy - PAST SURGICAL HISTORY OF 07/26/14 lumbar pain injections - REDUCTION OF LARGE BREAST 1995 - REPAIR HEART WND W CP BYPASS 2003 bypass x 6, Dr. Becerra/[facility] - TOTAL ABDOM HYSTERECTOMY 1990 TATIANA/BSO; benign menorrhagia, endometriosis - TOTAL KNEE REPLACEMENT Right 2007 right partial knee replacement/ Dr. 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 Social History Main Topics Smoking status: Never Smoker Smokeless tobacco: Never Used Alcohol use: No Drug use: No Sexual activity: No ACTIVE PROBLEM LIST Diaphragmatic Hernia Without Mention of Obstruction Or Gangrene Acute Gastritis Without Mention of Hemorrhage Knee Pain History of Dvt (Deep Vein Thrombosis) Coronary Artery Disease Peripheral Neuropathy Diabetes Mellitus, Type 2 (Hcc) Hypertension Hyperlipidemia Depression Backache, Unspecified Arthritis of Knee Diabetic Retinopathy, Nonproliferative, Moderate (Hcc) Osteoporosis Degeneration of Lumbar Or Lumbosacral Intervertebral Disc Hip Pain Lumbosacral Neuritis Enthesopathy of Hip Region Right-Sided Low Back Pain With Right-Sided Sciatica Osteoarthritis of Spine With Radiculopathy, Lumbar Region Oropharyngeal Dysphagia Current Outpatient Prescriptions: diclofenac sodium (VOLTAREN) 1 % topical gel Apply 4 g to affected area four times daily. Disp: 1 Tube Rfl: 5 ondansetron orally disintegrating (ZOFRAN ODT) 4 mg disintegrating tablet Take 1 tablet by mouth every 6 hours as needed for Nausea/Vomiting. Disp: 20 tablet Rfl: 0 COMPOUNDED PRESCRIPTION Powerstep gel insert(M77.41, M77.42) Metatarsalgia of both feet (primary encounter diagnosis)(M25.579) Pain in joint involving ankle and foot, unspecified laterality(M21.41, M21.42) Pes planus of both feet Disp: 1 Device Rfl: 0 amitriptyline (ELAVIL) 25 mg tablet Take 1 tablet by mouth daily at bedtime. Disp: 30 tablet Rfl: 3 gabapentin (NEURONTIN) 600 mg tablet Take 1 tablet by mouth four times daily for 90 days. Disp: 120 tablet Rfl: 5 estradiol (ESTRACE) 0.01 % (0.1 mg/gram) vaginal cream Apply pea-sized amount to perineum and 1 applicator vaginally twice a week for atrophic vaginitis. Disp: 30 g Rfl: 5 omeprazole (PRILOSEC) 20 mg capsule Take 1 capsule by mouth twice daily. Disp: 60 capsule Rfl: 11 warfarin (COUMADIN) 5 mg tablet Per cardiology (Patient taking differently: Per cardiology: 4 mg 6 days a week and 2 mg once a week. ) Disp: Rfl: metoprolol tartrate, short acting, (LOPRESSOR) 100 mg tablet Take 100 mg by mouth once daily. Disp: Rfl: isosorbide mononitrate ER (IMDUR) 120 mg 24 hr tablet Take 120 mg by mouth once daily. Disp: Rfl: losartan (COZAAR) 50 mg tablet Take 1 tablet by mouth once daily. (Patient taking differently: Take 100 mg by mouth once daily. ) Disp: 90 tablet Rfl: 0 nitroglycerin sublingual (NITROQUICK) 0.4 mg SL tablet Dissolve 0.4 mg under the tongue every 5 minutes as needed. Up to 3 max Disp: Rfl: warfarin 4 mg tablet Per Cardiology: 4 mg 6 days a week and 2 mg once a week. Disp: Rfl: 0 CYANOCOBALAMIN, VITAMIN B-12, (VITAMIN B-12 ORAL) Take by mouth. Disp: Rfl: rosuvastatin (CRESTOR) 40 mg tablet Take 40 mg by mouth once daily. Disp: Rfl: furosemide (LASIX) 40 mg tablet Take 40 mg by mouth once daily. Disp: Rfl: Aspirin 81 mg ORAL Tab Take 81 mg by mouth. Disp: Rfl: CALCIUM CARBONATE/VITAMIN D3 (CALCIUM + D ORAL) Take by mouth. Disp: Rfl: tiZANidine (ZANAFLEX) 4 mg tablet Take 1 tablet by mouth every 8 hours as needed. Disp: 20 tablet Rfl: 0 No current facility-administered medications for this visit. DTAP,TDAP,TD(1 - Tdap) due on 1957 PAP EVERY 3 YEARS (65-80 YEARS OLD) due on 01/01/2004 INFLUENZA(1) due on 04/16/2018 EXAM: BP 118/60 Pulse 64 Resp 20 Pleasant Obese adult woman in no acute distress. Alert and oriented all spheres. Normal affect and cognition. Speech normal. No deficits to learning or comprehension. Skin warm, dry, pink to lips and nailbeds. Normal turgor. Respirations regular and unlabored. Chest CTA. HRRR without murmur or gallop. Extrem: no clubbing, cyanosis, edema. Extremities are warm and pink with prompt capillary refill. Left knee persists with crepitation and limited range of motion. She does still have some popliteal swelling although anterior compartment is less swollen. ASSESSMENT/PLAN: 1. Acute pain of left knee - ICD9: 719.46, ICD10: M25.562 (primary diagnosis) Advised patient narcotics not appropriate for chronic pain issues. Because of patient has had worsening of symptoms will provide a single prescription for Delaplane. Patient agrees that she will not ask for additional refills. We had discussion that she needs to discuss further treatment with Dr. Daley and VERNA Rader's arthritis is pretty severe. We need to focus on eliminating the source of her pain. She understands. - HYDROCODONE 5 MG-ACETAMINOPHEN 325 MG TABLET 2. Arthritis of knee - ICD9: 716.96, ICD10: M17.10 Keep appt Wednesday with ortho - HYDROCODONE 5 MG-ACETAMINOPHEN 325 MG TABLET DONNA Campos Observed: 05/25/2018 Status: COMPLETED Source: [facility] 1:40 PM [facility] Office Visit (FAMPWS) BRITTANY LORENZO ([id number]) 1940 F Date Time Provider Department 05/25/18 1:40 PM Magdalene JOHNSON) FAMP[facility] During your visit today, we recorded the following information about you: Pulse Respiration Blood pressure 64/minute 20/minute 118/60 Alta Meyer Erlinda 05/25/2018 2:20 PM Signed KNEE PAIN: Pt was seen in [place] on 05/18/18 for left knee pain. She was given a short course of Delaplane. She is currently set up with Ortho on Wednesday. Pain level today at a 10. M Colin Johnson PA-C 05/25/2018 3:12 PM Signed 77 year old female with c/o excruciating pain in left knee. Has appt Wednesday with Jackie Rader Wednesday. Stated that it was improved on leaving and had improved gait. Over the weekend went to [facility] [place] [facility] where she received a prescription for Delaplane which helped. Patient is asking if she have a prescription to tide her over until she sees orthopedist. HISTORIES FAMILY HISTORY Problem Relation Age of Onset - Heart Mother - Cancer Father of esophageal cancer PAST MEDICAL HISTORY Diagnosis Date - Backache, unspecified In pain management with Dr. Reyna - Cardiomyopathy (HCC) - Compression fracture of L4 lumbar vertebra (HCC) Dr. Polo prescribing pain meds - Coronary artery disease Dr Mendez; s/p CABG, no IA - Depression - Diabetes mellitus, type 2 (HCC) - Diabetic retinopathy, nonproliferative, moderate (HCC) - Hiatal hernia - History of DVT (deep vein thrombosis) cardiology manages, coumadin. after CABG(PE), (L leg) heart cath, and (R leg) knee surgery - Hyperlipidemia - Hypertension - Pain management Sees Dr. Reyna at [facility] for back - Peripheral neuropathy - Shortness of breath PAST SURGICAL HISTORY Procedure Laterality Date - APPENDECTOMY - BREAST BIOPSY left, aspiration and excision of cyst - COLONOSCOP W/ OR W/O BRS SPEC 12 years ago Colonoscopy - COLONOSCOP W/ OR W/O BRSH SPEC 03/30/11 - EGD W/O BRSH SPECIMEN W/BX 03/30/11 - EGD W/O OR W/BRUSH/WASH 11/22/2013 EGD - EGD W/O OR W/BRUSH/WASH 04/24/2016 EGD - ESOPHAGEAL DILATATION 03/30/11 - HEART CATHETERIZATION - HEART SURGERY HX - LAPAROSCOPIC CHOLEYCYSTECTOMY 1997 Cholecystectomy, lap - PAST SURGICAL HISTORY OF 1958 bowel surgery, perforation - PAST SURGICAL HISTORY OF 2000 left knee laparthroscopy - PAST SURGICAL HISTORY OF 07/26/14 lumbar pain injections - REDUCTION OF LARGE BREAST 1995 - REPAIR HEART WND W CP BYPASS 2002 bypass x 6, Dr. Becerra/[facility] - TOTAL ABDOM HYSTERECTOMY 1990 TATIANA/BSO; benign menorrhagia, endometriosis - TOTAL KNEE REPLACEMENT Right 2006 right partial knee replacement/ Dr. 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 Social History Main Topics Smoking status: Never Smoker Smokeless tobacco: Never Used Alcohol use: No Drug use: No Sexual activity: No ACTIVE PROBLEM LIST Diaphragmatic Hernia Without Mention of Obstruction Or Gangrene Acute Gastritis Without Mention of Hemorrhage Knee Pain History of Dvt (Deep Vein Thrombosis) Coronary Artery Disease Peripheral Neuropathy Diabetes Mellitus, Type 2 (Hcc) Hypertension Hyperlipidemia Depression Backache, Unspecified Arthritis of Knee Diabetic Retinopathy, Nonproliferative, Moderate (Hcc) Osteoporosis Degeneration of Lumbar Or Lumbosacral Intervertebral Disc Hip Pain Lumbosacral Neuritis Enthesopathy of Hip Region Right-Sided Low Back Pain With Right-Sided Sciatica Osteoarthritis of Spine With Radiculopathy, Lumbar Region Oropharyngeal Dysphagia Current Outpatient Prescriptions: diclofenac sodium (VOLTAREN) 1 % topical gel Apply 4 g to affected area four times daily. Disp: 1 Tube Rfl: 5 ondansetron orally disintegrating (ZOFRAN ODT) 4 mg disintegrating tablet Take 1 tablet by mouth every 6 hours as needed for Nausea/Vomiting. Disp: 20 tablet Rfl: 0 COMPOUNDED PRESCRIPTION Powerstep gel insert(M77.41, M77.42) Metatarsalgia of both feet (primary encounter diagnosis)(M25.579) Pain in joint involving ankle and foot, unspecified laterality(M21.41, M21.42) Pes planus of both feet Disp: 1 Device Rfl: 0 amitriptyline (ELAVIL) 25 mg tablet Take 1 tablet by mouth daily at bedtime. Disp: 30 tablet Rfl: 3 gabapentin (NEURONTIN) 600 mg tablet Take 1 tablet by mouth four times daily for 90 days. Disp: 120 tablet Rfl: 5 estradiol (ESTRACE) 0.01 % (0.1 mg/gram) vaginal cream Apply pea-sized amount to perineum and 1 applicator vaginally twice a week for atrophic vaginitis. Disp: 30 g Rfl: 5 omeprazole (PRILOSEC) 20 mg capsule Take 1 capsule by mouth twice daily. Disp: 60 capsule Rfl: 11 warfarin (COUMADIN) 5 mg tablet Per cardiology (Patient taking differently: Per cardiology: 4 mg 6 days a week and 2 mg once a week. ) Disp: Rfl: metoprolol tartrate, short acting, (LOPRESSOR) 100 mg tablet Take 100 mg by mouth once daily. Disp: Rfl: isosorbide mononitrate ER (IMDUR) 120 mg 24 hr tablet Take 120 mg by mouth once daily. Disp: Rfl: losartan (COZAAR) 50 mg tablet Take 1 tablet by mouth once daily. (Patient taking differently: Take 100 mg by mouth once daily. ) Disp: 90 tablet Rfl: 0 nitroglycerin sublingual (NITROQUICK) 0.4 mg SL tablet Dissolve 0.4 mg under the tongue every 5 minutes as needed. Up to 3 max Disp: Rfl: warfarin 4 mg tablet Per Cardiology: 4 mg 6 days a week and 2 mg once a week. Disp: Rfl: 0 CYANOCOBALAMIN, VITAMIN B-12, (VITAMIN B-12 ORAL) Take by mouth. Disp: Rfl: rosuvastatin (CRESTOR) 40 mg tablet Take 40 mg by mouth once daily. Disp: Rfl: furosemide (LASIX) 40 mg tablet Take 40 mg by mouth once daily. Disp: Rfl: Aspirin 81 mg ORAL Tab Take 81 mg by mouth. Disp: Rfl: CALCIUM CARBONATE/VITAMIN D3 (CALCIUM + D ORAL) Take by mouth. Disp: Rfl: tiZANidine (ZANAFLEX) 4 mg tablet Take 1 tablet by mouth every 8 hours as needed. Disp: 20 tablet Rfl: 0 No current facility-administered medications for this visit. DTAP,TDAP,TD(1 - Tdap) due on 1957 PAP EVERY 3 YEARS (65-80 YEARS OLD) due on 01/01/2004 INFLUENZA(1) due on 04/16/2018 EXAM: BP 118/60 Pulse 64 Resp 20 Pleasant Obese adult woman in no acute distress. Alert and oriented all spheres. Normal affect and cognition. Speech normal. No deficits to learning or comprehension. Skin warm, dry, pink to lips and nailbeds. Normal turgor. Respirations regular and unlabored. Chest CTA. HRRR without murmur or gallop. Extrem: no clubbing, cyanosis, edema. Extremities are warm and pink with prompt capillary refill. Left knee persists with crepitation and limited range of motion. She does still have some popliteal swelling although anterior compartment is less swollen. ASSESSMENT/PLAN: 1. Acute pain of left knee - ICD9: 719.46, ICD10: M25.562 (primary diagnosis) Advised patient narcotics not appropriate for chronic pain issues. Because of patient has had worsening of symptoms will provide a single prescription for Delaplane. Patient agrees that she will not ask for additional refills. We had discussion that she needs to discuss further treatment with Dr. Daley and VERNA Rader's arthritis is pretty severe. We need to focus on eliminating the source of her pain. She understands. - HYDROCODONE 5 MG-ACETAMINOPHEN 325 MG TABLET 2. Arthritis of knee - ICD9: 716.96, ICD10: M17.10 Keep appt Wednesday with ortho - HYDROCODONE 5 MG-ACETAMINOPHEN 325 MG TABLET DONNA Campos PA-C 05/25/2018 2:52 PM Signed Delaplane as directed per prescription for pain being careful to limit to 1-2 doses a day unless it is more severe pain. Do not drive or operate dangerous machinery while on this medication. It may cause drowsiness or impair judgment and cause increased risk for falls. This medication may be habit forming if used regularly, and may cause drowsiness, so use caution. This medication may cause constipation so increase fiber and exercise if possible. Stimulant laxatives such as pericolace or Sennekot OTC may help if needed but should not be used over long periods. Referring Provider: SELF [[id number]] Allergies As of Date: 05/25/2018 Noted Allergy Reaction WILDA INHIBITORS 05/23/2014 3 - Cough Comments: WILDA cough DOXYCYCLINE 01/22/2012 7 - Swelling Comments: Tongue and feet KEFLEX (CEPHALEXIN) 07/16/2014 11 - Vomiting PENICILLINS 01/22/2011 2 - Rash Comments: edema PERCOCET (OXYCODONE-ACETAMINOPHEN)03/29/2013 8 - GI Upset Comments: Patient has taken, needs to eat prior to taking. SULFA (SULFONAMIDE ANTIBIOTICS) 01/22/2011 2 - Rash TETRACYCLINE 01/22/2011 2 - Rash Comments: difficulty breathing Date Reviewed: 05/25/2018 Reviewed by: Alta Meyer Ma - Fully Assessed Reason for Visit: Left Knee Pain [1208] Primary Visit Diagnosis:Acute pain of left knee [M25.562] Other Visit Diagnosis:Arthritis of knee [M17.10] Order(s):HYDROcodone-acetaminophen (NORCO) 5-325 mg per tabletTake 1 tablet by mouth every 6 hours as needed for Pain for up to 7 days.Disp: 20 tabletRfl: 0 Prescriptions as of 05/25/2018 Sig: DICLOFENAC 1 % TOPICAL GEL Apply 4 g to affected area fo* ONDANSETRON 4 MG DISINTEGRATI* Take 1 tablet by mouth every * COMPOUNDED PRESCRIPTION Powerstep gel insert (M77.41* AMITRIPTYLINE 25 MG TABLET Take 1 tablet by mouth daily * GABAPENTIN 600 MG TABLET Take 1 tablet by mouth four t* ESTRADIOL 0.01% (0.1 MG/GRAM)* Apply pea-sized amount to per* OMEPRAZOLE 20 MG CAPSULE,YANETH* Take 1 capsule by mouth twice* WARFARIN 5 MG TABLET Per cardiology Patient taking differently: Per cardiology: 4 mg 6 days a* METOPROLOL TARTRATE 100 MG TA* Take 100 mg by mouth once melanie* ISOSORBIDE MONONITRATE ER 120* Take 120 mg by mouth once melanie* LOSARTAN 50 MG TABLET Take 1 tablet by mouth once d* Patient taking differently: Take 100 mg by mouth once melanie* NITROGLYCERIN 0.4 MG SUBLINGU* Dissolve 0.4 mg under the ton* WARFARIN 4 MG TABLET Per Cardiology: 4 mg 6 days * VITAMIN B-12 ORAL Take by mouth. * ROSUVASTATIN 40 MG TABLET Take 40 mg by mouth once alondra* * FUROSEMIDE 40 MG TABLET Take 40 mg by mouth once alondra* * ASPIRIN 81 MG TABLET Take 81 mg by mouth. * CALCIUM + D ORAL Take by mouth. HYDROCODONE 5 MG-ACETAMINOPHE* Take 1 tablet by mouth every * TIZANIDINE 4 MG TABLET Take 1 tablet by mouth every * Problem List As Of Date 05/25/2018 Noted Resolved Diaphragmatic hernia without mention of obstruc*INVALID FOR* Acute gastritis without mention of hemorrhage [*INVALID FOR* Dysphagia, unspecified [R13.10] INVALID FOR*11/23/2016 Knee pain [M25.569] INVALID FOR* History of DVT (deep vein thrombosis) [Z86.718] More... Coronary artery disease [I25.10] More... Peripheral neuropathy [G62.9] More... Diabetes mellitus, type 2 [E11.9] Hypertension [I10] Hyperlipidemia [E78.5] Depression [F32.9] Backache, unspecified [M54.9] Arthritis of knee [M17.10] INVALID FOR* Diabetic retinopathy, nonproliferative, moderat* Osteoporosis [M81.0] INVALID FOR* Lumbar radiculopathy [M54.16] INVALID FOR*12/19/2014 DDD (degenerative disc disease), lumbar [M51.36]INVALID FOR*12/19/2014 Lumbar spondylosis [M47.816] INVALID FOR*02/27/2015 Degeneration of lumbar or lumbosacral intervert*INVALID FOR* Lumbago [M54.5] INVALID FOR*12/19/2014 Hip pain [M25.559] INVALID FOR* Lumbosacral neuritis [M54.17] INVALID FOR* Low back pain [M54.5] INVALID FOR*02/27/2015 Enthesopathy of hip region [M76.899] INVALID FOR* Right-sided low back pain with right-sided scia*INVALID FOR* Osteoarthritis of spine with radiculopathy, lum*INVALID FOR* Oropharyngeal dysphagia [R13.12] INVALID FOR* Other instructions from your clinician: Delaplane as directed per prescription for pain being careful to limit to 1-2 doses a day unless it is more severe pain. Do not drive or operate dangerous machinery while on this medication. It may cause drowsiness or impair judgment and cause increased risk for falls. This medication may be habit forming if used regularly, and may cause drowsiness, so use caution. This medication may cause constipation so increase fiber and exercise if possible. Stimulant laxatives such as pericolace or Sennekot OTC may help if needed but should not be used over long periods. Visit Notes: >> Alta Meyer Ma WedMay 25, 2018 2:14 PM Status: Signed KNEE PAIN: Pt was seen in [place] on 05/18/18 for left knee pain. She was given a short course of Delaplane. She is currently set up with Ortho on Wednesday. Pain level today at a 10. Prescriptions ordered this encounter Disp Refills Start End HYDROCODONE 5 MG-ACETAMINOPHEN 325 M* 20 t* 0 05/25/2018 06/01/2018 Class: Print RX Route: ORAL Sig: Take 1 tablet by mouth every 6 hours as needed for Pain for up to 7 days. Encounter Status:Closed by Magdalene JOHNSON PA-C on 05/25/18 EMERGENCY REPORT Observed: 05/22/2018 Status: F Source: [facility] 7:22 PM [facility] EMERGENCY ROOM REPORT NAME ACCOUNT SEX AGE ADMIT DISCHARGE PT MED. RECORD# NUMBER DATE DATE TYPE BJ, [id number] F 77 05/18/18 05/18/18 3 BRITTANY M [id number] ROOM: ER DATE OF : 1940 DICTATING PHYSICIAN: Gurinder Curiel HISTORY OF PRESENT ILLNESS: This is a 77-year-old female who came to the Emergency Room with pain in her left knee. She states that she has degenerative joint disease of the left knee. She states that her family physician injected this yesterday, but it is not helping her. She states that she still has a lot of pain with movement. She denies fevers. She denies any redness. She denies any trauma. She states that she just needs something for pain for home. Her states she has taken tramadol in the past, and he states that does not work. She said she has had Dilaudid in the past and that made her too goofy. She has had morphine in the past, but she says that Delaplane has worked well for her in the past too. She denies any swelling in any of her other joints. She denies any recent trauma. She denies any shortness of breath, difficulty breathing, chest pain, abdominal pain, or rashes. She states she can move her knee okay. She states it is just uncomfortable when she walks and moves about. She states she has an appointment upcoming with her orthopedic doctor. SOCIAL HISTORY: She is a nonsmoker and lives at home. She is here with her . She is appropriate, and her and herself give the history. They state they have been for a long number of years. PHYSICAL EXAMINATION: On examination, she is pleasant and alert. She is resting comfortably in the bed, but she has discomfort to her knee. Flexion and extension are present. There is no effusion present. There is no erythema about the joint. There is no tenderness in the gastrocs. Neurovascular distally is normal. She does not have grossly swollen feet. Her abdomen is soft, without any discomfort, slightly overweight. Her lungs are clear. She is not tachypneic. Her heart rate and rhythm are regular. No murmur. Her vital signs show a 96.3 temporal scanning, 80 radial pulse, 18 respirations, 143/64 blood pressure, and 98% saturation. EMERGENCY DEPARTMENT COURSE AND TREATMENT: The patient states the discomfort makes her a little sick to her stomach, so we gave her Zofran. We gave her 4 mg of Delaplane and a prescription to go. She is going to follow up with her family doctor in the office, Dr. Flower, and return here if necessary. She was very pleased with this course of therapy. She did not want any extreme measures taken today, but she says she just needs something for the pain. DIAGNOSIS: Exacerbation of chronic osteoarthritis of the left knee with pain. Page 1 of 2 BRITTANY LORENZO Emergency Room Report Dictated By: Gurinder Curiel DO 05/19/18 06:09 JOB #: [id number] Transcribed By: radha 05/19/18 13:33 Electronically signed by: E-SIGN GURINDER CURIEL DO 05/22/18 19:18 Page 2 of 2 BRITTANY LORENZO Emergency Room Report URINALYSIS WITH Collected: 05/17/2018 Status: F Source: [facility] 11:43 AM [facility] [place] REPOSITORY TYPE CODE TESTS RESULT OUT OF RANGE REFERENCE UNITS LAB UCOL Yellow Color Yellow LAB [facility] Clear Clarity Abnormal Cloudy Alert LAB UGLUC Negative mg/dL Glucose, Urine Negative LAB UBIL Negative Bilirubin, Urine Negative LAB UKET Negative Ketones, Urine Negative LAB USPG 1.005-1.030 Specific [place], Ur 1.006 LAB UHGB Negative Abnormal Hemoglobin/Blood, 1+ Alert Ur LAB UPH 4.5-8.0 pH 6.0 LAB UPROT Negative mg/dL Protein, Urine Negative LAB UUROB Normal Urobilinogen Normal LAB UNITR Negative Nitrites Negative LAB ULKEST Negative Leukest Negative LAB UCOM Comments SEE COMMENT Result Comment: N/A LAB [facility] Urine SEE Demetrius Comment COMMENT Result Comment: N/A LAB UWBC 0-5 /HPF WBC 0-5 LAB URBC 0-3 /HPF Abnormal RBC Alert 3-5 LAB UEPI /HPF Epithelial Cells SEE COMMENT Result Comment: Few Squamous Epithelial Cells Performed By: #### UAWMIC #### [facility] [address], [place] [address] Observed: 05/17/2018 Status: F Source: [facility] URINE CULTURE 11:43 AM [facility] REPOSITORY Sp. Request/Comment: - Specimen received in preservative Culture Result - 10,000 - <50,000 CFU/ml Escherichia coli --> ABNORMAL ALERT ORGANISM: Escherichia coli METHOD: Minimum inhibitory concentration(Vitek) Antibiotic Interp DEMETRIUS Status Ampicillin SUSCEPTIBLE <=2 F Gentamicin SUSCEPTIBLE <=1 F Trimeth sulfameth SUSCEPTIBLE <=20 F Cefazolin SUSCEPTIBLE <=4 F CLSI breakpoints for therapy of uncomplicated UTI's due to E.coli, K.pneumoniae, and P.mirabilis were applied and may be used to predict the activity of oral agents(cefaclor, cefdinir, cefpodoxime, cefp rozil, cefuroxime, cephalexin, loracarbef). Ciprofloxacin SUSCEPTIBLE <=0.25 F Nitrofurantoin SUSCEPTIBLE <=16 F Cefepime SUSCEPTIBLE <=1 F Piperacillin/Tazobac SUSCEPTIBLE <=4 F Ampicillin Sulbact SUSCEPTIBLE <=2 F Ceftriaxone SUSCEPTIBLE <=1 F Meropenem SUSCEPTIBLE <=0.25 F Ertapenem SUSCEPTIBLE <=0.5 F Performed By: #### URCUL #### [facility] [address], [place] [address] PROGRESS Observed: 05/17/2018 Status: COMPLETED Source: [place] 10:50 AM [facility] REPOSITORY HNO ID: [id number] Author: Magdalene Shaw (Donna) Alex Service: (none) Author Type: Physician Yoker Machine Operator Type: Progress Notes Filed: 05/17/2018 1:08 PM Note Text: 77 year old female with c/o 1. Left knee pain persistent. Has appt with Nitish Rader PAC in ortho 05/30/18. Trouble walking due to pain. Hurts medial knee, lateral thigh and calf. 2. Urine with foul odor, has some pressure suprapubic. No burning, fever, chills. Hx many UTIs. Blood sugars running 145 after eating 2 nights ago. 3. Right thumb and wrist persistent pain. OTC topicals didn't help much. Wants to try medication. Hemoglobin A1C (%) Date Value 02/22/2018 6.7 07/20/2017 6.5 ) CMP: Glucose 131 02/22/2018 BUN 18 02/22/2018 Creatinine 0.95 02/22/2018 Sodium 139 02/22/2018 Potassium 4.2 02/22/2018 Chloride 103 02/22/2018 CO2 22 02/22/2018 Protein, Total 6.4 02/22/2018 Albumin 4.0 02/22/2018 Calcium 8.9 02/22/2018 Alkaline Phosphatase 58 02/22/2018 Bilirubin, Total 0.6 02/22/2018 AST 24 02/22/2018 ALT 16 02/22/2018 HISTORIES FAMILY HISTORY Problem Relation Age of Onset - Heart Mother - Cancer Father of esophageal cancer PAST MEDICAL HISTORY Diagnosis Date - Backache, unspecified In pain management with Dr. Reyna - Cardiomyopathy (HCC) - Compression fracture of L4 lumbar vertebra (HCC) Dr. Polo prescribing pain meds - Coronary artery disease Dr Mendez; s/p CABG, no IA - Depression - Diabetes mellitus, type 2 (HCC) - Diabetic retinopathy, nonproliferative, moderate (HCC) - Hiatal hernia - History of DVT (deep vein thrombosis) cardiology manages, coumadin. after CABG(PE), (L leg) heart cath, and (R leg) knee surgery - Hyperlipidemia - Hypertension - Pain management Sees Dr. Reyna at [facility] for back - Peripheral neuropathy - Shortness of breath PAST SURGICAL HISTORY Procedure Laterality Date - APPENDECTOMY - BREAST BIOPSY left, aspiration and excision of cyst - COLONOSCOP W/ OR W/O BRSH SPEC 12 years ago Colonoscopy - COLONOSCOP W/ OR W/O BRSH SPEC 03/30/11 - EGD W/O BRSH SPECIMEN W/BX 03/30/11 - EGD W/O OR W/BRUSH/WASH 11/22/2013 EGD - EGD W/O OR W/BRUSH/WASH 04/24/2016 EGD - ESOPHAGEAL DILATATION 03/30/11 - HEART CATHETERIZATION - HEART SURGERY HX - LAPAROSCOPIC CHOLEYCYSTECTOMY 1997 Cholecystectomy, lap - PAST SURGICAL HISTORY OF 1958 bowel surgery, perforation - PAST SURGICAL HISTORY OF 2000 left knee laparthroscopy - PAST SURGICAL HISTORY OF 07/26/14 lumbar pain injections - REDUCTION OF LARGE BREAST 1995 - REPAIR HEART WND W CP BYPASS 2002 bypass x 6, Dr. Becerra/[facility] - TOTAL ABDOM HYSTERECTOMY 1990 TATIANA/BSO; benign menorrhagia, endometriosis - TOTAL KNEE REPLACEMENT Right 2006 right partial knee replacement/ Dr. 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 Social History Main Topics Smoking status: Never Smoker Smokeless tobacco: Never Used Alcohol use: No Drug use: No Sexual activity: No ACTIVE PROBLEM LIST Diaphragmatic Hernia Without Mention of Obstruction Or Gangrene Acute Gastritis Without Mention of Hemorrhage Knee Pain History of Dvt (Deep Vein Thrombosis) Coronary Artery Disease Peripheral Neuropathy Diabetes Mellitus, Type 2 (Hcc) Hypertension Hyperlipidemia Depression Backache, Unspecified Arthritis of Knee Diabetic Retinopathy, Nonproliferative, Moderate (Hcc) Osteoporosis Degeneration of Lumbar Or Lumbosacral Intervertebral Disc Hip Pain Lumbosacral Neuritis Enthesopathy of Hip Region Right-Sided Low Back Pain With Right-Sided Sciatica Osteoarthritis of Spine With Radiculopathy, Lumbar Region Oropharyngeal Dysphagia Current Outpatient Prescriptions: ondansetron orally disintegrating (ZOFRAN ODT) 4 mg disintegrating tablet Take 1 tablet by mouth every 6 hours as needed for Nausea/Vomiting. Disp: 20 tablet Rfl: 0 tiZANidine (ZANAFLEX) 4 mg tablet Take 1 tablet by mouth every 8 hours as needed. Disp: 20 tablet Rfl: 0 COMPOUNDED PRESCRIPTION Powerstep gel insert(M77.41, M77.42) Metatarsalgia of both feet (primary encounter diagnosis)(M25.579) Pain in joint involving ankle and foot, unspecified laterality(M21.41, M21.42) Pes planus of both feet Disp: 1 Device Rfl: 0 gabapentin (NEURONTIN) 600 mg tablet Take 1 tablet by mouth four times daily for 90 days. Disp: 120 tablet Rfl: 5 estradiol (ESTRACE) 0.01 % (0.1 mg/gram) vaginal cream Apply pea-sized amount to perineum and 1 applicator vaginally twice a week for atrophic vaginitis. Disp: 30 g Rfl: 5 omeprazole (PRILOSEC) 20 mg capsule Take 1 capsule by mouth twice daily. Disp: 60 capsule Rfl: 11 warfarin (COUMADIN) 5 mg tablet Per cardiology (Patient taking differently: Per cardiology: 4 mg 6 days a week and 2 mg once a week. ) Disp: Rfl: metoprolol tartrate, short acting, (LOPRESSOR) 100 mg tablet Take 100 mg by mouth once daily. Disp: Rfl: isosorbide mononitrate ER (IMDUR) 120 mg 24 hr tablet Take 120 mg by mouth once daily. Disp: Rfl: losartan (COZAAR) 50 mg tablet Take 1 tablet by mouth once daily. (Patient taking differently: Take 100 mg by mouth once daily. ) Disp: 90 tablet Rfl: 0 nitroglycerin sublingual (NITROQUICK) 0.4 mg SL tablet Dissolve 0.4 mg under the tongue every 5 minutes as needed. Up to 3 max Disp: Rfl: warfarin 4 mg tablet Per Cardiology: 4 mg 6 days a week and 2 mg once a week. Disp: Rfl: 0 CYANOCOBALAMIN, VITAMIN B-12, (VITAMIN B-12 ORAL) Take by mouth. Disp: Rfl: rosuvastatin (CRESTOR) 40 mg tablet Take 40 mg by mouth once daily. Disp: Rfl: furosemide (LASIX) 40 mg tablet Take 40 mg by mouth once daily. Disp: Rfl: Aspirin 81 mg ORAL Tab Take 81 mg by mouth. Disp: Rfl: CALCIUM CARBONATE/VITAMIN D3 (CALCIUM + D ORAL) Take by mouth. Disp: Rfl: amitriptyline (ELAVIL) 25 mg tablet Take 1 tablet by mouth daily at bedtime. (Patient not taking: Reported on 04/22/2018 ) Disp: 30 tablet Rfl: 3 No current facility-administered medications for this visit. DTAP,TDAP,TD(1 - Tdap) due on 1957 INFLUENZA(1) due on 04/16/2018 [facility] ADHERENCE due on 05/16/2018 07/20/17 left knee XR reviewed: bone on bone medial, narrowed lateral joint space, tricompartmental arthritis. EXAM: BP 122/70 (BP Site: Left Arm, BP Position: Sitting, BP Cuff Size: Large Adult) Pulse 70 Temp 36.2 ?C (97.2 ?F) (Tympanic) Resp 16 Wt 100.7 kg (222 lb) BMI 36.94 kg/m? Pleasant overweight older woman in no acute distress. Alert and oriented all spheres. Normal affect and cognition. Speech normal. No deficits to learning or comprehension. Skin warm, dry, pink to lips and nailbeds. Normal turgor. Respirations regular and unlabored. Chest CTA. HRRR without murmur or gallop. Extrem: no clubbing, cyanosis, edema. Extremities are warm and pink with prompt capillary refill. Continue stiffness and pain with movement in right thumb MC-radial joint. Mild swelling. Left knee also with mild anterior effusion and popliteal swelling. Marked arthritic changes. Urine dip: small leuk, neg nitrite, tr protein, small non- hem blood. ASSESSMENT/PLAN: 1. Abnormal urine odor - ICD9: 791.9, ICD10: R82.90 (primary diagnosis) Proceed with Cipro which patient identifies seems to work better. Caution on INR: check in 3 days. - UA DIP B/O - URINALYSIS WITH MICROSCOPIC - URINE CULTURE - CIPROFLOXACIN 250 MG TABLET 2. Osteoarthrosis, localized, primary, knee, left - ICD9: 715.16, ICD10: M17.12 Discussed steroid injection risks and benefits as well as options for PT or orthopedic referral. Wishes to proceed with steroid injection, site, ID, allergies verified. Injected Celestone 6mg/1ml/ mixed with Lidocaine 1% 2ml and Bupivacaine 0.5% 2ml into left knee joint lateral approach. Had improvement in pain on standing and walking. 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 Arthritis of finger of right hand - ICD9: 716.94, ICD10: M19.041 - DICLOFENAC 1 % TOPICAL GEL Follow with ortho. Also has outstanding referral to rheumatology; willing to go to [place] if rheum there. Will have her check with PSR. Magdalene Johnson PA-C CNOV Observed: 05/17/2018 Status: COMPLETED Source: [place] 10:20 AM [facility] REPOSITORY Office Visit (FAMPWS) BRITTANY LORENZO ([id number]) 1940 F Date Time Provider Department 05/17/18 10:20 AM Magdalene JOHNSON) FAMPWS During your visit today, we recorded the following information about you: Temperature Pulse Respiration Blood pressure 97.2 degrees 70/minute 16/minute 122/70 Weight 100.7 kg Magdalene Johnson PA-C 05/17/2018 1:08 PM Signed 77 year old female with c/o 1. Left knee pain persistent. Has appt with Nitish Rader PAC in ortho 05/30/18. Trouble walking due to pain. Hurts medial knee, lateral thigh and calf. 2. Urine with foul odor, has some pressure suprapubic. No burning, fever, chills. Hx many UTIs. Blood sugars running 145 after eating 2 nights ago. 3. Right thumb and wrist persistent pain. OTC topicals didn't help much. Wants to try medication. Hemoglobin A1C (%) Date Value 02/22/2018 6.7 07/20/2017 6.5 ) CMP: Glucose 131 02/22/2018 BUN 18 02/22/2018 Creatinine 0.95 02/22/2018 Sodium 139 02/22/2018 Potassium 4.2 02/22/2018 Chloride 103 02/22/2018 CO2 22 02/22/2018 Protein, Total 6.4 02/22/2018 Albumin 4.0 02/22/2018 Calcium 8.9 02/22/2018 Alkaline Phosphatase 58 02/22/2018 Bilirubin, Total 0.6 02/22/2018 AST 24 02/22/2018 ALT 16 02/22/2018 HISTORIES FAMILY HISTORY Problem Relation Age of Onset - Heart Mother - Cancer Father of esophageal cancer PAST MEDICAL HISTORY Diagnosis Date - Backache, unspecified In pain management with Dr. Reyna - Cardiomyopathy (HCC) - Compression fracture of L4 lumbar vertebra (HCC) Dr. Polo prescribing pain meds - Coronary artery disease Dr Mendez; s/p CABG, no IA - Depression - Diabetes mellitus, type 2 (HCC) - Diabetic retinopathy, nonproliferative, moderate (HCC) - Hiatal hernia - History of DVT (deep vein thrombosis) cardiology manages, coumadin. after CABG(PE), (L leg) heart cath, and (R leg) knee surgery - Hyperlipidemia - Hypertension - Pain management Sees Dr. Reyna at [facility] for back - Peripheral neuropathy - Shortness of breath PAST SURGICAL HISTORY Procedure Laterality Date - APPENDECTOMY - BREAST BIOPSY left, aspiration and excision of cyst - COLONOSCOP W/ OR W/O BRSH SPEC 12 years ago Colonoscopy - COLONOSCOP W/ OR W/O BRSH SPEC 03/30/11 - EGD W/O BRSH SPECIMEN W/BX 03/30/11 - EGD W/O OR W/BRUSH/WASH 11/22/2013 EGD - EGD W/O OR W/BRUSH/WASH 04/24/2016 EGD - ESOPHAGEAL DILATATION 03/30/11 - HEART CATHETERIZATION - HEART SURGERY HX - LAPAROSCOPIC CHOLEYCYSTECTOMY 1997 Cholecystectomy, lap - PAST SURGICAL HISTORY OF 1958 bowel surgery, perforation - PAST SURGICAL HISTORY OF 2000 left knee laparthroscopy - PAST SURGICAL HISTORY OF 07/26/14 lumbar pain injections - REDUCTION OF LARGE BREAST 1995 - REPAIR HEART WND W CP BYPASS 2003 bypass x 6, Dr. Becerra/[facility] - TOTAL ABDOM HYSTERECTOMY 1990 TATIANA/BSO; benign menorrhagia, endometriosis - TOTAL KNEE REPLACEMENT Right 2007 right partial knee replacement/ Dr. 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 Social History Main Topics Smoking status: Never Smoker Smokeless tobacco: Never Used Alcohol use: No Drug use: No Sexual activity: No ACTIVE PROBLEM LIST Diaphragmatic Hernia Without Mention of Obstruction Or Gangrene Acute Gastritis Without Mention of Hemorrhage Knee Pain History of Dvt (Deep Vein Thrombosis) Coronary Artery Disease Peripheral Neuropathy Diabetes Mellitus, Type 2 (Hcc) Hypertension Hyperlipidemia Depression Backache, Unspecified Arthritis of Knee Diabetic Retinopathy, Nonproliferative, Moderate (Hcc) Osteoporosis Degeneration of Lumbar Or Lumbosacral Intervertebral Disc Hip Pain Lumbosacral Neuritis Enthesopathy of Hip Region Right-Sided Low Back Pain With Right-Sided Sciatica Osteoarthritis of Spine With Radiculopathy, Lumbar Region Oropharyngeal Dysphagia Current Outpatient Prescriptions: ondansetron orally disintegrating (ZOFRAN ODT) 4 mg disintegrating tablet Take 1 tablet by mouth every 6 hours as needed for Nausea/Vomiting. Disp: 20 tablet Rfl: 0 tiZANidine (ZANAFLEX) 4 mg tablet Take 1 tablet by mouth every 8 hours as needed. Disp: 20 tablet Rfl: 0 COMPOUNDED PRESCRIPTION Powerstep gel insert(M77.41, M77.42) Metatarsalgia of both feet (primary encounter diagnosis)(M25.579) Pain in joint involving ankle and foot, unspecified laterality(M21.41, M21.42) Pes planus of both feet Disp: 1 Device Rfl: 0 gabapentin (NEURONTIN) 600 mg tablet Take 1 tablet by mouth four times daily for 90 days. Disp: 120 tablet Rfl: 5 estradiol (ESTRACE) 0.01 % (0.1 mg/gram) vaginal cream Apply pea-sized amount to perineum and 1 applicator vaginally twice a week for atrophic vaginitis. Disp: 30 g Rfl: 5 omeprazole (PRILOSEC) 20 mg capsule Take 1 capsule by mouth twice daily. Disp: 60 capsule Rfl: 11 warfarin (COUMADIN) 5 mg tablet Per cardiology (Patient taking differently: Per cardiology: 4 mg 6 days a week and 2 mg once a week. ) Disp: Rfl: metoprolol tartrate, short acting, (LOPRESSOR) 100 mg tablet Take 100 mg by mouth once daily. Disp: Rfl: isosorbide mononitrate ER (IMDUR) 120 mg 24 hr tablet Take 120 mg by mouth once daily. Disp: Rfl: losartan (COZAAR) 50 mg tablet Take 1 tablet by mouth once daily. (Patient taking differently: Take 100 mg by mouth once daily. ) Disp: 90 tablet Rfl: 0 nitroglycerin sublingual (NITROQUICK) 0.4 mg SL tablet Dissolve 0.4 mg under the tongue every 5 minutes as needed. Up to 3 max Disp: Rfl: warfarin 4 mg tablet Per Cardiology: 4 mg 6 days a week and 2 mg once a week. Disp: Rfl: 0 CYANOCOBALAMIN, VITAMIN B-12, (VITAMIN B-12 ORAL) Take by mouth. Disp: Rfl: rosuvastatin (CRESTOR) 40 mg tablet Take 40 mg by mouth once daily. Disp: Rfl: furosemide (LASIX) 40 mg tablet Take 40 mg by mouth once daily. Disp: Rfl: Aspirin 81 mg ORAL Tab Take 81 mg by mouth. Disp: Rfl: CALCIUM CARBONATE/VITAMIN D3 (CALCIUM + D ORAL) Take by mouth. Disp: Rfl: amitriptyline (ELAVIL) 25 mg tablet Take 1 tablet by mouth daily at bedtime. (Patient not taking: Reported on 04/22/2018 ) Disp: 30 tablet Rfl: 3 No current facility-administered medications for this visit. DTAP,TDAP,TD(1 - Tdap) due on 1957 INFLUENZA(1) due on 04/16/2018 STATIN MED ADHERENCE due on 05/16/2018 07/20/17 left knee XR reviewed: bone on bone medial, narrowed lateral joint space, tricompartmental arthritis. EXAM: BP 122/70 (BP Site: Left Arm, BP Position: Sitting, BP Cuff Size: Large Adult) Pulse 70 Temp 36.2 ?C (97.2 ?F) (Tympanic) Resp 16 Wt 100.7 kg (222 lb) BMI 36.94 kg/m? Pleasant overweight older woman in no acute distress. Alert and oriented all spheres. Normal affect and cognition. Speech normal. No deficits to learning or comprehension. Skin warm, dry, pink to lips and nailbeds. Normal turgor. Respirations regular and unlabored. Chest CTA. HRRR without murmur or gallop. Extrem: no clubbing, cyanosis, edema. Extremities are warm and pink with prompt capillary refill. Continue stiffness and pain with movement in right thumb MC-radial joint. Mild swelling. Left knee also with mild anterior effusion and popliteal swelling. Marked arthritic changes. Urine dip: small leuk, neg nitrite, tr protein, small non- hem blood. ASSESSMENT/PLAN: 1. Abnormal urine odor - ICD9: 791.9, ICD10: R82.90 (primary diagnosis) Proceed with Cipro which patient identifies seems to work better. Caution on INR: check in 3 days. - UA DIP B/O - URINALYSIS WITH MICROSCOPIC - URINE CULTURE - CIPROFLOXACIN 250 MG TABLET 2. Osteoarthrosis, localized, primary, knee, left - ICD9: 715.16, ICD10: M17.12 Discussed steroid injection risks and benefits as well as options for PT or orthopedic referral. Wishes to proceed with steroid injection, site, ID, allergies verified. Injected Celestone 6mg/1ml/ mixed with Lidocaine 1% 2ml and Bupivacaine 0.5% 2ml into left knee joint lateral approach. Had improvement in pain on standing and walking. 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 Arthritis of finger of right hand - ICD9: 716.94, ICD10: M19.041 - DICLOFENAC 1 % TOPICAL GEL Follow with ortho. Also has outstanding referral to rheumatology; willing to go to [place] if rheum there. Will have her check with PSR. DONNA Campos PA-C 05/17/2018 11:31 AM Signed Rest the joint over then next five days as much as possible, then start gradually increasing activity and stretching as discussed. The joint injection includes a long acting numbing agent. This will wear off over about 12 hours and pain may return. Over then next 2- 3 days it should gradually get better as the cortisone effects take over. Force fluids with water and juices (not caffeine) to 2000cc per day until symptoms improve. Any mechanical pressure in the area of the urethra (wear urine comes out) may cause bacteria to be pushed up inside the bladder. You should urinate to clear out bacterial contamination before and after sex, after tampon insertion, or after washing the vaginal area. It is important to wipe front to back after voiding. If you develop a fever, chills, unusual back pain, or vomiting, this may mean you have infection in the kidney which can be more serious. If this occurs, or you fail to improve on the antibiotics in 3 days, either call the office to be checked or go to the emergency department. Take Cipro as directed per prescription Pyridium is a urinary anesthetic which should decrease the discomfort over the next few days. It will turn the urine a bright orange or yellow color, and it will permanently stain clothing if you drip. If you should breakout in a rash, stop the medicine and call the office. Any antibiotic has the potential to cause diarrhea due to alteration in the normal bacterial shannan of the gut. This can be reduced by eating yogurt with active cultures daily while on the medication. If diarrhea becomes severe (watery, large volumes or more than 3-4/day) call the office. While on antibiotics women may experience yeast vaginitis due to alteration in the vaginal shannan. Symptoms include vaginal itching, irritation, and often a clumpy white discharge. If this occurs, there are several effective over the counter remedies available, including one-dose treatments. If these are unsuccessful, call the office. Antibiotics may interfere with control. If you are on oral contraceptives, use another form of protection (condoms, foams, jellies, diaphragm) throught the end of whatever pill pack you are on when you finish the antibiotic. Have your lab for coumadin check in 3 days. Referring Provider: SELF [[id number]] Allergies As of Date: 05/17/2018 Noted Allergy Reaction WILDA INHIBITORS 05/23/2014 3 - Cough Comments: WILDA cough DOXYCYCLINE 01/22/2012 7 - Swelling Comments: Tongue and feet KEFLEX (CEPHALEXIN) 07/16/2014 11 - Vomiting PENICILLINS 01/22/2011 2 - Rash Comments: edema PERCOCET (OXYCODONE-ACETAMINOPHEN)03/29/2013 8 - GI Upset Comments: Patient has taken, needs to eat prior to taking. SULFA (SULFONAMIDE ANTIBIOTICS) 01/22/2011 2 - Rash TETRACYCLINE 01/22/2011 2 - Rash Comments: difficulty breathing Date Reviewed: 05/17/2018 Reviewed by: Ruby Whitaker Inside Sales Manager - Fully Assessed Reason for Visit: Knee Pain [132] Cmt: (left) knee pain/swelling x 1 month Urinary Problem [252] Cmt: Odor to urine x yesterday Hand Pain [1581] Cmt: (right) hand pain x 1 month Primary Visit Diagnosis:Abnormal urine odor [R82.90] Other Visit Diagnoses:Osteoarthrosis, localized, primary, knee, left [M17.12] Effusion of bursa of left knee [M25.462] Arthritis of finger of right hand [M19.041] Order(s):UA DIP B/O [[id number]] Order #: [id number] [] betamethasone acetate-betamethasone sodium phosphate 6 mg, bupivacaine (PF) 0.25 % (2.5 mg/mL) 5 mg, lidocaine (PF) 10 mg/mL (1 %) 20 mgDisp: Rfl: URINALYSIS WITH MICROSCOPIC [SQUAWMIC] Order #: [id number]. #:[id number] URINE CULTURE [SQURCUL] Order #: [id number]. #:[id number] ciprofloxacin HCl (CIPRO) 250 mg tabletTake 1 tablet by mouth twice daily for 3 days.Disp: 6 tabletRfl: 0 diclofenac sodium (VOLTAREN) 1 % topical gelApply 4 g to affected area four times daily.Disp: 1 TubeRfl: 5 Prescriptions as of 05/17/2018 Sig: ONDANSETRON 4 MG DISINTEGRATI* Take 1 tablet by mouth every * TIZANIDINE 4 MG TABLET Take 1 tablet by mouth every * COMPOUNDED PRESCRIPTION Powerstep gel insert (M77.41* GABAPENTIN 600 MG TABLET Take 1 tablet by mouth four t* ESTRADIOL 0.01% (0.1 MG/GRAM)* Apply pea-sized amount to per* OMEPRAZOLE 20 MG CAPSULE,YANETH* Take 1 capsule by mouth twice* WARFARIN 5 MG TABLET Per cardiology Patient taking differently: Per cardiology: 4 mg 6 days a* METOPROLOL TARTRATE 100 MG TA* Take 100 mg by mouth once melanie* ISOSORBIDE MONONITRATE ER 120* Take 120 mg by mouth once melanie* LOSARTAN 50 MG TABLET Take 1 tablet by mouth once d* Patient taking differently: Take 100 mg by mouth once melanie* NITROGLYCERIN 0.4 MG SUBLINGU* Dissolve 0.4 mg under the ton* WARFARIN 4 MG TABLET Per Cardiology: 4 mg 6 days * VITAMIN B-12 ORAL Take by mouth. * ROSUVASTATIN 40 MG TABLET Take 40 mg by mouth once alondra* * FUROSEMIDE 40 MG TABLET Take 40 mg by mouth once alondra* * ASPIRIN 81 MG TABLET Take 81 mg by mouth. * CALCIUM + D ORAL Take by mouth. CIPROFLOXACIN 250 MG TABLET Take 1 tablet by mouth twice * DICLOFENAC 1 % TOPICAL GEL Apply 4 g to affected area fo* AMITRIPTYLINE 25 MG TABLET Take 1 tablet by mouth daily * Patient not taking: Reported on 04/22/2018 Problem List As Of Date 05/17/2018 Noted Resolved Diaphragmatic hernia without mention of obstruc*INVALID FOR* Acute gastritis without mention of hemorrhage [*INVALID FOR* Dysphagia, unspecified [R13.10] INVALID FOR*11/23/2016 Knee pain [M25.569] INVALID FOR* History of DVT (deep vein thrombosis) [Z86.718] More... Coronary artery disease [I25.10] More... Peripheral neuropathy [G62.9] More... Diabetes mellitus, type 2 [E11.9] Hypertension [I10] Hyperlipidemia [E78.5] Depression [F32.9] Backache, unspecified [M54.9] Arthritis of knee [M17.10] INVALID FOR* Diabetic retinopathy, nonproliferative, moderat* Osteoporosis [M81.0] INVALID FOR* Lumbar radiculopathy [M54.16] INVALID FOR*12/19/2014 DDD (degenerative disc disease), lumbar [M51.36]INVALID FOR*12/19/2014 Lumbar spondylosis [M47.816] INVALID FOR*02/27/2015 Degeneration of lumbar or lumbosacral intervert*INVALID FOR* Lumbago [M54.5] INVALID FOR*12/19/2014 Hip pain [M25.559] INVALID FOR* Lumbosacral neuritis [M54.17] INVALID FOR* Low back pain [M54.5] INVALID FOR*02/27/2015 Enthesopathy of hip region [M76.899] INVALID FOR* Right-sided low back pain with right-sided scia*INVALID FOR* Osteoarthritis of spine with radiculopathy, lum*INVALID FOR* Oropharyngeal dysphagia [R13.12] INVALID FOR* Other instructions from your clinician: Rest the joint over then next five days as much as possible, then start gradually increasing activity and stretching as discussed. The joint injection includes a long acting numbing agent. This will wear off over about 12 hours and pain may return. Over then next 2-3 days it should gradually get better as the cortisone effects take over. Force fluids with water and juices (not caffeine) to 2000cc per day until symptoms improve. Any mechanical pressure in the area of the urethra (wear urine comes out) may cause bacteria to be pushed up inside the bladder. You should urinate to clear out bacterial contamination before and after sex, after tampon insertion, or after washing the vaginal area. It is important to wipe front to back after voiding. If you develop a fever, chills, unusual back pain, or vomiting, this may mean you have infection in the kidney which can be more serious. If this occurs, or you fail to improve on the antibiotics in 3 days, either call the office to be checked or go to the emergency department. Take Cipro as directed per prescription Pyridium is a urinary anesthetic which should decrease the discomfort over the next few days. It will turn the urine a bright orange or yellow color, and it will permanently stain clothing if you drip. If you should breakout in a rash, stop the medicine and call the office. Any antibiotic has the potential to cause diarrhea due to alteration in the normal bacterial shannan of the gut. This can be reduced by eating yogurt with active cultures daily while on the medication. If diarrhea becomes severe (watery, large volumes or more than 3-4/day) call the office. While on antibiotics women may experience yeast vaginitis due to alteration in the vaginal shannan. Symptoms include vaginal itching, irritation, and often a clumpy white discharge. If this occurs, there are several effective over the counter remedies available, including one-dose treatments. If these are unsuccessful, call the office. Antibiotics may interfere with control. If you are on oral contraceptives, use another form of protection (condoms, foams, jellies, diaphragm) throught the end of whatever pill pack you are on when you finish the antibiotic. Have your lab for coumadin check in 3 days. Prescriptions ordered this encounter Disp Refills Start End [facility] [employer]DER 05/17/2018 05/17/2018 Class: Suppress Questions Route: IAtc CIPROFLOXACIN 250 MG TABLET 6 ta* 0 05/17/2018 05/20/2018 Route: ORAL Sig: Take 1 tablet by mouth twice daily for 3 days. DICLOFENAC 1 % TOPICAL GEL 1 Tu* 5 05/17/2018 Route: TOPICAL Sig: Apply 4 g to affected area four times daily. Encounter Status:Closed by Magdalene JOHNSON PA-C on 05/17/18 PROGRESS Observed: 05/10/2018 Status: COMPLETED Source: [place] 12:27 PM [facility] [place] REPOSITORY HNO ID: [id number] Author: Eugenie Castellanos) Jacob Service: (none) Author Type: Registered Nurse Type: Progress Notes Filed: 05/10/2018 12:35 PM Note Text: PRIMARY CARE COORDINATION CHART REVIEW Patient identified for Care Coordination from: [facility] Last PCP office visit: 04/22/2018 Next OV: Visit date not found CHRONIC DX: DM 1 with Peripheral Neuropathy and Retinopathy CAD HTN Hyperlipidemia Osteoporosis Depression CARE GAPS: None UTILIZATION WITHIN THE LAST 12 MONTHS: ? ED: 12/07/17 [facility] Atypical Chest Pain, ? HOSPITAL: 08/14/17 [facility] CP Stable Angina ? SNF: None PRIMARY CARE COORDINATION OUTREACH PLAN: No Care Coordination needs at this time per PCP. No Care Gaps, pt follows up with cardiology and has family member support. Eugenie James RN May 10, 2018 12:34 PM Eugenie James RN CNPTOUTREACH Observed: 05/10/2018 Status: COMPLETED Source: [place] 12:00 AM [facility] REPOSITORY Patient Outreach (FAMPWS) BRITTANY LORENZO ([id number]) 1940 F Date Time Provider Department 05/10/18 EUGENIE JAMES) FAMPWS During your visit today, we recorded the following information about you: Eugenie James RN 05/10/2018 12:35 PM Signed PRIMARY CARE COORDINATION CHART REVIEW Patient identified for Care Coordination from: [facility] Last PCP office visit: 04/22/2018 Next OV: Visit date not found CHRONIC DX: DM 2 with Peripheral Neuropathy and Retinopathy CAD HTN Hyperlipidemia Osteoporosis Depression CARE GAPS: None UTILIZATION WITHIN THE LAST 12 MONTHS: ? ED: 12/07/17 [facility] Atypical Chest Pain, ? HOSPITAL: 08/14/17 [facility] CP Stable Angina ? SNF: None PRIMARY CARE COORDINATION OUTREACH PLAN: No Care Coordination needs at this time per PCP. No Care Gaps, pt follows up with cardiology and has family member support. Eugenie James RN May 10, 2018 12:34 PM Eugenie James RN Allergies As of Date: 05/10/2018 Noted Allergy Reaction WILDA INHIBITORS 05/23/2014 3 - Cough Comments: WILDA cough DOXYCYCLINE 01/22/2012 7 - Swelling Comments: Tongue and feet KEFLEX (CEPHALEXIN) 07/16/2014 11 - Vomiting PENICILLINS 01/22/2011 2 - Rash Comments: edema PERCOCET (OXYCODONE-ACETAMINOPHEN)03/29/2013 8 - GI Upset Comments: Patient has taken, needs to eat prior to taking. 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 [3612] Cmt: ACO Review No need for Care Coordination at this time Reason For Visit History Recorded Prescriptions as of 05/10/2018 Sig: TIZANIDINE 4 MG TABLET Take 1 tablet by mouth every * COMPOUNDED PRESCRIPTION Powerstep gel insert (M77.41* AMITRIPTYLINE 25 MG TABLET Take 1 tablet by mouth daily * Patient not taking: Reported on 04/22/2018 GABAPENTIN 600 MG TABLET Take 1 tablet by mouth four t* ESTRADIOL 0.01% (0.1 MG/GRAM)* Apply pea-sized amount to per* OMEPRAZOLE 20 MG CAPSULE,YANETH* Take 1 capsule by mouth twice* WARFARIN 5 MG TABLET Per cardiology Patient taking differently: Per cardiology: 4 mg 6 days a* METOPROLOL TARTRATE 100 MG TA* Take 100 mg by mouth once melanie* ISOSORBIDE MONONITRATE ER 120* Take 120 mg by mouth once melanie* LOSARTAN 50 MG TABLET Take 1 tablet by mouth once d* Patient taking differently: Take 100 mg by mouth once melanie* ONDANSETRON 4 MG DISINTEGRATI* Take 1 tablet by mouth every * NITROGLYCERIN 0.4 MG SUBLINGU* Dissolve 0.4 mg under the ton* WARFARIN 4 MG TABLET Per Cardiology: 4 mg 6 days * VITAMIN B-12 ORAL Take by mouth. * ROSUVASTATIN 40 MG TABLET Take 40 mg by mouth once alondra* * FUROSEMIDE 40 MG TABLET Take 40 mg by mouth once alondra* * ASPIRIN 81 MG TABLET Take 81 mg by mouth. * CALCIUM + D ORAL Take by mouth. Problem List As Of Date 05/10/2018 Noted Resolved Diaphragmatic hernia without mention of obstruc*INVALID FOR* Acute gastritis without mention of hemorrhage [*INVALID FOR* Dysphagia, unspecified [R13.10] INVALID FOR*11/23/2016 Knee pain [M25.569] INVALID FOR* History of DVT (deep vein thrombosis) [Z86.718] More... Coronary artery disease [I25.10] More... Peripheral neuropathy [G62.9] More... Diabetes mellitus, type 2 [E11.9] Hypertension [I10] Hyperlipidemia [E78.5] Depression [F32.9] Backache, unspecified [M54.9] Arthritis of knee [M17.10] INVALID FOR* Diabetic retinopathy, nonproliferative, moderat* Osteoporosis [M81.0] INVALID FOR* Lumbar radiculopathy [M54.16] INVALID FOR*12/19/2014 DDD (degenerative disc disease), lumbar [M51.36]INVALID FOR*12/19/2014 Lumbar spondylosis [M47.816] INVALID FOR*02/27/2015 Degeneration of lumbar or lumbosacral intervert*INVALID FOR* Lumbago [M54.5] INVALID FOR*12/19/2014 Hip pain [M25.559] INVALID FOR* Lumbosacral neuritis [M54.17] INVALID FOR* Low back pain [M54.5] INVALID FOR*02/27/2015 Enthesopathy of hip region [M76.899] INVALID FOR* Right-sided low back pain with right-sided scia*INVALID FOR* Osteoarthritis of spine with radiculopathy, lum*INVALID FOR* Oropharyngeal dysphagia [R13.12] INVALID FOR* Encounter Status:Closed by EUGENIE JAMES on 05/10/18 PROTHROMBIN TIME W/INR Collected: 04/26/2018 Status: F Source: [place] 3:01 PM [facility] REPOSITORY Order Comment: Comments: STANDING ORDER Comments: STANDING ORDER TYPE CODE TESTS RESULT OUT OF RANGE REFERENCE UNITS LAB L300.4150 11.7-14.9 SECONDS High PROTIME 26.8 LAB L300.4200 Normal INR 2.5 Performed By: #### L300.3900 #### Margarita [facility] [address], [address] XR HAND 3V PA/LAT/OBL Observed: 04/24/2018 Status: F Source: [place] 10:45 AM [facility] REPOSITORY * * *Final Report* * * DATE OF EXAM: Apr 24 2018 10:45AM WOX [id number] - XR HAND 3V PA/LAT/OBL RT / PROCEDURE REASON: Pain in right hand * * * * Physician Interpretation * * * * RIGHT HAND TECHNIQUE: PA, lateral, oblique views: 3 images HISTORY: Pain COMPARISON: none RESULT: Bones are diffusely osteopenic. Chondrocalcinosis is present throughout the carpus. Severe first CMC joint space narrowing with subchondral sclerosis and osteophyte formation. Mild first MTP joint space narrowing. Moderate second MCP joint space narrowing with osteophytes. Moderately severe narrowing in the second DIP joint. IMPRESSION: Osteopenia. Osteoarthrosis. Cigarette Book Maker: PSCB Transcribe Date/Time: Apr 24 2018 12:11P Dictated by : CIARAN RAMIREZ MD This examination was interpreted and the report reviewed and electronically signed by: CIARAN RAMIREZ MD on Apr 24 2018 12:12PM EST [id number] PROGRESS Observed: 04/24/2018 Status: COMPLETED Source: [place] 10:39 AM [facility] REPOSITORY HNO ID: [id number] Author: Mercedes Gordon (RtTomi Hanson Service: (none) Author Type: Clip Loading Machine Adjuster Type: Progress Notes Filed: 04/24/2018 10:45 AM Note Text: Radiology Service Progress Note PATIENT NAME: Brittany Lorenzo DATE OF SERVICE: April 24, 2018 TIME: 10:39 AM PATIENT IDENTITY VERIFICATION COMPLETED USING TWO (2) METHODS: Patient confirmed name verbally and Date of . PATIENT GENDER DATA: Female. status: : No status: NO. PATIENT RELEVANT IMPLANT DATA REVIEWED: Not Applicable RADIOLOGY DEPARTMENT: General X-ray: Exam(s) Completed: Upper Extremity X-Ray(s): Hand, right : PERIPHERAL IV DATA: Not applicable SIGNED BY: RT Manjula April 24, 2018 10:39 AM PROGRESS Observed: 04/22/2018 Status: COMPLETED Source: [place] 2:46 PM [facility] REPOSITORY HNO ID: [id number] Author: Osiel Flower Service: (none) Author Type: Physician Type: Progress Notes Filed: 04/22/2018 3:13 PM Note Text: Patient presents with: Musculoskeletal Problem: Chronic right hand pain shooting up into anterior forearm HPI: Patient presents today for office visit for follow up. Had seen Rick recently and had suggested using otc treatments. Sed rate was mildly up but has been better since. She was to see ortho for a trigger finger but chose not to. Is on coumadin which complicates the picture. Cannot take celebrex due to sulfa allergy. Pain currently goes around the thumb. No trauma. Palm of her hand is painful. Sometimes tingly. Does not wake her up from sleep. Has had issues for three months. Has had swelling in her legs for years. But worried about foot pain. MEDICATIONS: Current Outpatient Prescriptions: COMPOUNDED PRESCRIPTION Powerstep gel insert(M77.41, M77.42) Metatarsalgia of both feet (primary encounter diagnosis)(M25.579) Pain in joint involving ankle and foot, unspecified laterality(M21.41, M21.42) Pes planus of both feet gabapentin (NEURONTIN) 600 mg tablet Take 1 tablet by mouth four times daily for 90 days. estradiol (ESTRACE) 0.01 % (0.1 mg/gram) vaginal cream Apply pea-sized amount to perineum and 1 applicator vaginally twice a week for atrophic vaginitis. omeprazole (PRILOSEC) 20 mg capsule Take 1 capsule by mouth twice daily. warfarin (COUMADIN) 5 mg tablet Per cardiology (Patient taking differently: Per cardiology: 4 mg 6 days a week and 2 mg once a week. ) metoprolol tartrate, short acting, (LOPRESSOR) 100 mg tablet Take 100 mg by mouth once daily. isosorbide mononitrate ER (IMDUR) 120 mg 24 hr tablet Take 120 mg by mouth once daily. losartan (COZAAR) 50 mg tablet Take 1 tablet by mouth once daily. (Patient taking differently: Take 100 mg by mouth once daily. ) ondansetron orally disintegrating (ZOFRAN ODT) 4 mg disintegrating tablet Take 1 tablet by mouth every 6 hours as needed for Nausea/Vomiting. nitroglycerin sublingual (NITROQUICK) 0.4 mg SL tablet Dissolve 0.4 mg under the tongue every 5 minutes as needed. Up to 3 max warfarin 4 mg tablet Per Cardiology: 4 mg 6 days a week and 2 mg once a week. CYANOCOBALAMIN, VITAMIN B-12, (VITAMIN B-12 ORAL) Take by mouth. rosuvastatin (CRESTOR) 40 mg tablet Take 40 mg by mouth once daily. furosemide (LASIX) 40 mg tablet Take 40 mg by mouth once daily. Aspirin 81 mg ORAL Tab Take 81 mg by mouth. CALCIUM CARBONATE/VITAMIN D3 (CALCIUM + D ORAL) Take by mouth. amitriptyline (ELAVIL) 25 mg tablet Take 1 tablet by mouth daily at bedtime. (Patient not taking: Reported on 04/22/2018 ) No current facility-administered medications for this visit. ALLERGIES: ALLERGIES Allergen Reactions - Wilda Inhibitors Cough WILDA cough - Doxycycline Swelling Tongue and feet - Keflex [Cephalexin] Vomiting - Penicillins Rash edema - Percocet [Oxycodone* GI Upset Patient has taken, needs to eat prior to taking. - Sulfa (Sulfonamide * Rash - Tetracycline Rash difficulty breathing PAST MEDICAL HISTORY Diagnosis Date - Backache, unspecified In pain management with Dr. Reyna - Cardiomyopathy (HCC) - Compression fracture of L4 lumbar vertebra (HCC) Dr. Polo prescribing pain meds - Coronary artery disease Dr Mendez; s/p CABG, no IA - Depression - Diabetes mellitus, type 2 (HCC) - Diabetic retinopathy, nonproliferative, moderate (HCC) - Hiatal hernia - History of DVT (deep vein thrombosis) cardiology manages, coumadin. after CABG(PE), (L leg) heart cath, and (R leg) knee surgery - Hyperlipidemia - Hypertension - Pain management Sees Dr. Reyna at [facility] for back - Peripheral neuropathy - Shortness of breath PAST SURGICAL HISTORY Procedure Laterality Date - APPENDECTOMY - BREAST BIOPSY left, aspiration and excision of cyst - COLONOSCOP W/ OR W/O [facility] SPEC 12 years ago Colonoscopy - COLONOSCOP W/ OR W/O [facility] SPEC 03/30/11 - EGD W/O [facility] SPECIMEN W/BX 03/30/11 - EGD W/O OR W/BRUSH/WASH 11/22/2013 EGD - EGD W/O OR W/BRUSH/WASH 04/24/2016 EGD - ESOPHAGEAL DILATATION 03/30/11 - HEART CATHETERIZATION - HEART SURGERY HX - LAPAROSCOPIC CHOLEYCYSTECTOMY 1997 Cholecystectomy, lap - PAST SURGICAL HISTORY OF 1958 bowel surgery, perforation - PAST SURGICAL HISTORY OF 2000 left knee laparthroscopy - PAST SURGICAL HISTORY OF 07/26/14 lumbar pain injections - REDUCTION OF LARGE BREAST 1995 - REPAIR HEART WND W CP BYPASS 2002 bypass x 6, Dr. Becerra/[facility] - TOTAL ABDOM HYSTERECTOMY 1990 TATIANA/BSO; benign menorrhagia, endometriosis - TOTAL KNEE REPLACEMENT Right 2007 right partial knee replacement/ Dr. Hussein FAMILY HISTORY Problem Relation Age of Onset - Heart Mother - Cancer Father of esophageal cancer Social History Marital status: Spouse name: Years of education: Number of children: 2 Occupational History Occupation Employer [employer] Social History Main Topics Smoking status: Never Smoker Smokeless tobacco: Never Used Alcohol use: No Drug use: No Sexual activity: No Reviewed current medications, allergies, past medical history, surgical history, family history and social history today. REVIEW OF SYSTEMS Foot: still having foot pain. Reminded her to follow up with podiatry. All other reviewed and negative other than HPI. HEALTH MAINTENANCE: Reviewed health maintenance issues today and recommended the following in detail. VITALS: BP 128/70 (BP Site: Left Arm, BP Position: Sitting, BP Cuff Size: Large Adult) Pulse 78 Temp 36.2 ?C (97.1 ?F) Resp 18 Wt 102.5 kg (226 lb) BMI 37.61 kg/m? Last 4 Encounter Wt Readings: Date: Wt: 04/22/2018 102.5 kg (226 lb) 04/12/2018 100.7 kg (222 lb) 03/04/2018 101.2 kg (223 lb) 02/21/2018 100.4 kg (221 lb 6.4 oz) PHYSICAL EXAMINATION: General appearance: Well appearing, alert, in no acute distress, well-hydrated, well nourished. Skin: Skin color, texture, turgor normal, no suspicious rashes or lesions Head: Normocephalic, no masses, lesions, tenderness or abnormalities Extremities: No deformities, edema, skin discoloration, clubbing or cyanosis. Good capillary refill. , normal range of motion. Negative tinel's and phalen's signs, normal range of motion. Musculoskeletal: No joint swelling, deformity, or tenderness Peripheral pulses: Normal Neuro: Negative. ASSESSMENT/PLAN: 1. Hand pain, right - ICD9: 729.5, ICD10: M79.641 (primary diagnosis) - xray of hand - prednisone. - Discussed risks and benefits of new medication with the patient. Advised them to call if any side effects or questions. - follow sugars while on. Call if greater than 300 - consider orrtho or physical therapy. 2. 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 2 diabetes mellitus, macular edema presence unspecified, unspecified laterality (HCC) - ICD9: 250.50, 362.05, ICD10: E11.3399 Have been good. Should be ok with steroids. 3. Essential hypertension - ICD9: 401.9, ICD10: I10 - good control - Continue current medication(s) - Goal of BP <140/90 Osiel Flower MD CNOV Observed: 04/22/2018 Status: COMPLETED Source: [place] 2:20 PM [facility] REPOSITORY Office Visit (FAMPWS) BRITTANY LORENZO ([id number]) 1940 F Date Time Provider Department 04/22/18 2:20 PM [facility] During your visit today, we recorded the following information about you: Temperature Pulse Respiration Blood pressure 97.1 degrees 78/minute 18/minute 128/70 Weight 102.5 kg Osiel Flower MD 04/22/2018 3:13 PM Signed Patient presents with: Musculoskeletal Problem: Chronic right hand pain shooting up into anterior forearm HPI: Patient presents today for office visit for follow up. Had seen Rick recently and had suggested using otc treatments. Sed rate was mildly up but has been better since. She was to see ortho for a trigger finger but chose not to. Is on coumadin which complicates the picture. Cannot take celebrex due to sulfa allergy. Pain currently goes around the thumb. No trauma. Palm of her hand is painful. Sometimes tingly. Does not wake her up from sleep. Has had issues for three months. Has had swelling in her legs for years. But worried about foot pain. MEDICATIONS: Current Outpatient Prescriptions: COMPOUNDED PRESCRIPTION Powerstep gel insert(M77.41, M77.42) Metatarsalgia of both feet (primary encounter diagnosis)(M25.579) Pain in joint involving ankle and foot, unspecified laterality(M21.41, M21.42) Pes planus of both feet gabapentin (NEURONTIN) 600 mg tablet Take 1 tablet by mouth four times daily for 90 days. estradiol (ESTRACE) 0.01 % (0.1 mg/gram) vaginal cream Apply pea-sized amount to perineum and 1 applicator vaginally twice a week for atrophic vaginitis. omeprazole (PRILOSEC) 20 mg capsule Take 1 capsule by mouth twice daily. warfarin (COUMADIN) 5 mg tablet Per cardiology (Patient taking differently: Per cardiology: 4 mg 6 days a week and 2 mg once a week. ) metoprolol tartrate, short acting, (LOPRESSOR) 100 mg tablet Take 100 mg by mouth once daily. isosorbide mononitrate ER (IMDUR) 120 mg 24 hr tablet Take 120 mg by mouth once daily. losartan (COZAAR) 50 mg tablet Take 1 tablet by mouth once daily. (Patient taking differently: Take 100 mg by mouth once daily. ) ondansetron orally disintegrating (ZOFRAN ODT) 4 mg disintegrating tablet Take 1 tablet by mouth every 6 hours as needed for Nausea/Vomiting. nitroglycerin sublingual (NITROQUICK) 0.4 mg SL tablet Dissolve 0.4 mg under the tongue every 5 minutes as needed. Up to 3 max warfarin 4 mg tablet Per Cardiology: 4 mg 6 days a week and 2 mg once a week. CYANOCOBALAMIN, VITAMIN B-12, (VITAMIN B-12 ORAL) Take by mouth. rosuvastatin (CRESTOR) 40 mg tablet Take 40 mg by mouth once daily. furosemide (LASIX) 40 mg tablet Take 40 mg by mouth once daily. Aspirin 81 mg ORAL Tab Take 81 mg by mouth. CALCIUM CARBONATE/VITAMIN D3 (CALCIUM + D ORAL) Take by mouth. amitriptyline (ELAVIL) 25 mg tablet Take 1 tablet by mouth daily at bedtime. (Patient not taking: Reported on 04/22/2018 ) No current facility-administered medications for this visit. ALLERGIES: ALLERGIES Allergen Reactions - Wilda Inhibitors Cough WILDA cough - Doxycycline Swelling Tongue and feet - Keflex [Cephalexin] Vomiting - Penicillins Rash edema - Percocet [Oxycodone* GI Upset Patient has taken, needs to eat prior to taking. - Sulfa (Sulfonamide * Rash - Tetracycline Rash difficulty breathing PAST MEDICAL HISTORY Diagnosis Date - Backache, unspecified In pain management with Dr. Reyna - Cardiomyopathy (HCC) - Compression fracture of L4 lumbar vertebra (HCC) Dr. Polo prescribing pain meds - Coronary artery disease Dr Mendez; s/p CABG, no IA - Depression - Diabetes mellitus, type 2 (HCC) - Diabetic retinopathy, nonproliferative, moderate (HCC) - Hiatal hernia - History of DVT (deep vein thrombosis) cardiology manages, coumadin. after CABG(PE), (L leg) heart cath, and (R leg) knee surgery - Hyperlipidemia - Hypertension - Pain management Sees Dr. Reyna at [facility] for back - Peripheral neuropathy - Shortness of breath PAST SURGICAL HISTORY Procedure Laterality Date - APPENDECTOMY - BREAST BIOPSY left, aspiration and excision of cyst - COLONOSCOP W/ OR W/O [facility] SPEC 12 years ago Colonoscopy - COLONOSCOP W/ OR W/O [facility] SPEC 03/30/11 - EGD W/O [facility] SPECIMEN W/BX 03/30/11 - EGD W/O OR W/BRUSH/WASH 11/22/2013 EGD - EGD W/O OR W/BRUSH/WASH 04/24/2016 EGD - ESOPHAGEAL DILATATION 03/30/11 - HEART CATHETERIZATION - HEART SURGERY HX - LAPAROSCOPIC CHOLEYCYSTECTOMY 1997 Cholecystectomy, lap - PAST SURGICAL HISTORY OF 1958 bowel surgery, perforation - PAST SURGICAL HISTORY OF 2000 left knee laparthroscopy - PAST SURGICAL HISTORY OF 07/26/14 lumbar pain injections - REDUCTION OF LARGE BREAST 1995 - REPAIR HEART WND W CP BYPASS 2003 bypass x 6, Dr. Becerra[facility] - TOTAL ABDOM HYSTERECTOMY 1990 TATIANA/BSO; benign menorrhagia, endometriosis - TOTAL KNEE REPLACEMENT Right 2007 right partial knee replacement/ Dr. Hussein FAMILY HISTORY Problem Relation Age of Onset - Heart Mother - Cancer Father of esophageal cancer Social History Marital status: Spouse name: Years of education: Number of children: 2 Occupational History Occupation Employer [employer] Social History Main Topics Smoking status: Never Smoker Smokeless tobacco: Never Used Alcohol use: No Drug use: No Sexual activity: No Reviewed current medications, allergies, past medical history, surgical history, family history and social history today. REVIEW OF SYSTEMS Foot: still having foot pain. Reminded her to follow up with podiatry. All other reviewed and negative other than HPI. HEALTH MAINTENANCE: Reviewed health maintenance issues today and recommended the following in detail. VITALS: BP 128/70 (BP Site: Left Arm, BP Position: Sitting, BP Cuff Size: Large Adult) Pulse 78 Temp 36.2 ?C (97.1 ?F) Resp 18 Wt 102.5 kg (226 lb) BMI 37.61 kg/m? Last 4 Encounter Wt Readings: Date: Wt: 04/22/2018 102.5 kg (226 lb) 04/12/2018 100.7 kg (222 lb) 03/04/2018 101.2 kg (223 lb) 02/21/2018 100.4 kg (221 lb 6.4 oz) PHYSICAL EXAMINATION: General appearance: Well appearing, alert, in no acute distress, well-hydrated, well nourished. Skin: Skin color, texture, turgor normal, no suspicious rashes or lesions Head: Normocephalic, no masses, lesions, tenderness or abnormalities Extremities: No deformities, edema, skin discoloration, clubbing or cyanosis. Good capillary refill. , normal range of motion. Negative tinel's and phalen's signs, normal range of motion. Musculoskeletal: No joint swelling, deformity, or tenderness Peripheral pulses: Normal Neuro: Negative. ASSESSMENT/PLAN: 1. Hand pain, right - ICD9: 729.5, ICD10: M79.641 (primary diagnosis) - xray of hand - prednisone. - Discussed risks and benefits of new medication with the patient. Advised them to call if any side effects or questions. - follow sugars while on. Call if greater than 300 - consider orrtho or physical therapy. 2. 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 2 diabetes mellitus, macular edema presence unspecified, unspecified laterality (HCC) - ICD9: 250.50, 362.05, ICD10: E11.3399 Have been good. Should be ok with steroids. 3. Essential hypertension - ICD9: 401.9, ICD10: I10 - good control - Continue current medication(s) - Goal of BP <140/90 Osiel Flower MD Referring Provider: SELF [200] Allergies As of Date: 04/22/2018 Noted Allergy Reaction WILDA INHIBITORS 05/23/2014 3 - Cough Comments: WILDA cough DOXYCYCLINE 01/22/2012 7 - Swelling Comments: Tongue and feet KEFLEX (CEPHALEXIN) 07/16/2014 11 - Vomiting PENICILLINS 01/22/2011 2 - Rash Comments: edema PERCOCET (OXYCODONE-ACETAMINOPHEN)03/29/2013 8 - GI Upset Comments: Patient has taken, needs to eat prior to taking. SULFA (SULFONAMIDE ANTIBIOTICS) 01/22/2011 2 - Rash TETRACYCLINE 01/22/2011 2 - Rash Comments: difficulty breathing Date Reviewed: 04/22/2018 Reviewed by: Ruth Sr LPN - Fully Assessed Reason for Visit: Musculoskeletal Problem [69] Cmt: Chronic right hand pain shooting up into anterior forearm Primary Visit Diagnosis:Hand pain, right [M79.641] Other Visit Diagnoses: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 2 diabetes mellitus, macular edema presence unspecified, unspecified laterality (HCC) [E11.3399] Essential hypertension [I10] Order(s):XR HAND GENERAL 3V PA/LAT/OBL RT [[id number]] Order #: [id number] FUTURE predniSONE (DELTASONE) 20 mg tabletTake 1 tablet by mouth once daily for 5 days. Take daily with food.Disp: 5 tabletRfl: 0 Prescriptions as of 04/22/2018 Sig: COMPOUNDED PRESCRIPTION Powerstep gel insert (M77.41* GABAPENTIN 600 MG TABLET Take 1 tablet by mouth four t* ESTRADIOL 0.01% (0.1 MG/GRAM)* Apply pea-sized amount to per* OMEPRAZOLE 20 MG CAPSULE,YANETH* Take 1 capsule by mouth twice* WARFARIN 5 MG TABLET Per cardiology Patient taking differently: Per cardiology: 4 mg 6 days a* METOPROLOL TARTRATE 100 MG TA* Take 100 mg by mouth once melanie* ISOSORBIDE MONONITRATE ER 120* Take 120 mg by mouth once melanie* LOSARTAN 50 MG TABLET Take 1 tablet by mouth once d* Patient taking differently: Take 100 mg by mouth once melanie* ONDANSETRON 4 MG DISINTEGRATI* Take 1 tablet by mouth every * NITROGLYCERIN 0.4 MG SUBLINGU* Dissolve 0.4 mg under the ton* WARFARIN 4 MG TABLET Per Cardiology: 4 mg 6 days * VITAMIN B-12 ORAL Take by mouth. * ROSUVASTATIN 40 MG TABLET Take 40 mg by mouth once alondra* * FUROSEMIDE 40 MG TABLET Take 40 mg by mouth once alondra* * ASPIRIN 81 MG TABLET Take 81 mg by mouth. * CALCIUM + D ORAL Take by mouth. PREDNISONE 20 MG TABLET Take 1 tablet by mouth once d* AMITRIPTYLINE 25 MG TABLET Take 1 tablet by mouth daily * Patient not taking: Reported on 04/22/2018 Problem List As Of Date 04/22/2018 Noted Resolved Diaphragmatic hernia without mention of obstruc*INVALID FOR* Acute gastritis without mention of hemorrhage [*INVALID FOR* Dysphagia, unspecified [R13.10] INVALID FOR*11/23/2016 Knee pain [M25.569] INVALID FOR* History of DVT (deep vein thrombosis) [Z86.718] More... Coronary artery disease [I25.10] More... Peripheral neuropathy [G62.9] More... Diabetes mellitus, type 2 [E11.9] Hypertension [I10] Hyperlipidemia [E78.5] Depression [F32.9] Backache, unspecified [M54.9] Arthritis of knee [M17.10] INVALID FOR* Diabetic retinopathy, nonproliferative, moderat* Osteoporosis [M81.0] INVALID FOR* Lumbar radiculopathy [M54.16] INVALID FOR*12/19/2014 DDD (degenerative disc disease), lumbar [M51.36]INVALID FOR*12/19/2014 Lumbar spondylosis [M47.816] INVALID FOR*02/27/2015 Degeneration of lumbar or lumbosacral intervert*INVALID FOR* Lumbago [M54.5] INVALID FOR*12/19/2014 Hip pain [M25.559] INVALID FOR* Lumbosacral neuritis [M54.17] INVALID FOR* Low back pain [M54.5] INVALID FOR*02/27/2015 Enthesopathy of hip region [M76.899] INVALID FOR* Right-sided low back pain with right-sided scia*INVALID FOR* Osteoarthritis of spine with radiculopathy, lum*INVALID FOR* Oropharyngeal dysphagia [R13.12] INVALID FOR* Prescriptions ordered this encounter Disp Refills Start End PREDNISONE 20 MG TABLET 5 ta* 0 04/22/2018 04/27/2018 Route: ORAL Sig: Take 1 tablet by mouth once daily for 5 days. Take daily with food. Encounter Status:Closed by OSIEL FLOWER MD on 04/22/18 SED RATE AVERY Collected: 04/12/2018 Status: F Source: [place] 11:31 AM [facility] REPOSITORY TYPE CODE TESTS RESULT OUT OF REFERENCE UNITS RANGE LAB WSR 0-20 mm/hr Sed Rate High Westergren 30 Performed By: #### WSR #### [facility] [address] [place], [place] [address] PROGRESS Observed: 04/12/2018 Status: COMPLETED Source: [place] 10:33 AM [facility] [place] REPOSITORY HNO ID: [id number] Author: Magdalene Shaw (Donna) Alex Service: (none) Author Type: Physician Yoker Machine Operator Type: Progress Notes Filed: 04/12/2018 4:53 PM Note Text: BP 130/66 Pulse 72 Temp 36.4 ?C (97.5 ?F) Resp 20 Wt 100.7 kg (222 lb) BMI 36.94 kg/m? 77 year old female with c/o bilateral foot pain. Saw Dr. Alejo: xrays showed degenerative arthritis in both feet. Has gel inserts. Feet and hands hurt. Shooting pain. HISTORIES FAMILY HISTORY Problem Relation Age of Onset - Heart Mother - Cancer Father of esophageal cancer PAST MEDICAL HISTORY Diagnosis Date - Backache, unspecified In pain management with Dr. Reyna - Cardiomyopathy (HCC) - Compression fracture of L4 lumbar vertebra (HCC) Dr. Polo prescribing pain meds - Coronary artery disease Dr Mendez; s/p CABG, no IA - Depression - Diabetes mellitus, type 2 (HCC) - Diabetic retinopathy, nonproliferative, moderate (HCC) - Hiatal hernia - History of DVT (deep vein thrombosis) cardiology manages, coumadin. after CABG(PE), (L leg) heart cath, and (R leg) knee surgery - Hyperlipidemia - Hypertension - Pain management Sees Dr. Reyna at [facility] for back - Peripheral neuropathy - Shortness of breath PAST SURGICAL HISTORY Procedure Laterality Date - APPENDECTOMY - BREAST BIOPSY left, aspiration and excision of cyst - COLONOSCOP W/ OR W/O [facility] SPEC 12 years ago Colonoscopy - COLONOSCOP W/ OR W/O [facility] SPEC 03/30/11 - EGD W/O [facility] SPECIMEN W/BX 03/30/11 - EGD W/O OR W/BRUSH/WASH 11/22/2013 EGD - EGD W/O OR W/BRUSH/WASH 04/24/2016 EGD - ESOPHAGEAL DILATATION 03/30/11 - HEART CATHETERIZATION - HEART SURGERY HX - LAPAROSCOPIC CHOLEYCYSTECTOMY 1997 Cholecystectomy, lap - PAST SURGICAL HISTORY OF 1958 bowel surgery, perforation - PAST SURGICAL HISTORY OF 2000 left knee laparthroscopy - PAST SURGICAL HISTORY OF 07/26/14 lumbar pain injections - REDUCTION OF LARGE BREAST 1995 - REPAIR HEART WND W CP BYPASS 2003 bypass x 6, Dr. Becerra/[facility] - TOTAL ABDOM HYSTERECTOMY 1990 TATIANA/BSO; benign menorrhagia, endometriosis - TOTAL KNEE REPLACEMENT Right 2007 right partial knee replacement/ Dr. 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 Social History Main Topics Smoking status: Never Smoker Smokeless tobacco: Never Used Alcohol use: No Drug use: No Sexual activity: No ACTIVE PROBLEM LIST Diaphragmatic Hernia Without Mention of Obstruction Or Gangrene Acute Gastritis Without Mention of Hemorrhage Knee Pain History of Dvt (Deep Vein Thrombosis) Coronary Artery Disease Peripheral Neuropathy Diabetes Mellitus, Type 2 (Hcc) Hypertension Hyperlipidemia Depression Backache, Unspecified Arthritis of Knee Diabetic Retinopathy, Nonproliferative, Moderate (Hcc) Osteoporosis Degeneration of Lumbar Or Lumbosacral Intervertebral Disc Hip Pain Lumbosacral Neuritis Enthesopathy of Hip Region Right-Sided Low Back Pain With Right-Sided Sciatica Osteoarthritis of Spine With Radiculopathy, Lumbar Region Oropharyngeal Dysphagia Current Outpatient Prescriptions: tiZANidine (ZANAFLEX) 4 mg tablet Take 1 tablet by mouth every 8 hours as needed. Disp: 20 tablet Rfl: 0 COMPOUNDED PRESCRIPTION Powerstep gel insert(M77.41, M77.42) Metatarsalgia of both feet (primary encounter diagnosis)(M25.579) Pain in joint involving ankle and foot, unspecified laterality(M21.41, M21.42) Pes planus of both feet Disp: 1 Device Rfl: 0 amitriptyline (ELAVIL) 25 mg tablet Take 1 tablet by mouth daily at bedtime. Disp: 30 tablet Rfl: 3 gabapentin (NEURONTIN) 600 mg tablet Take 1 tablet by mouth four times daily for 90 days. Disp: 120 tablet Rfl: 5 estradiol (ESTRACE) 0.01 % (0.1 mg/gram) vaginal cream Apply pea-sized amount to perineum and 1 applicator vaginally twice a week for atrophic vaginitis. Disp: 30 g Rfl: 5 omeprazole (PRILOSEC) 20 mg capsule Take 1 capsule by mouth twice daily. Disp: 60 capsule Rfl: 11 warfarin (COUMADIN) 5 mg tablet Per cardiology (Patient taking differently: Per cardiology: 4 mg 6 days a week and 2 mg once a week. ) Disp: Rfl: metoprolol tartrate, short acting, (LOPRESSOR) 100 mg tablet Take 100 mg by mouth once daily. Disp: Rfl: isosorbide mononitrate ER (IMDUR) 120 mg 24 hr tablet Take 120 mg by mouth once daily. Disp: Rfl: losartan (COZAAR) 50 mg tablet Take 1 tablet by mouth once daily. (Patient taking differently: Take 100 mg by mouth once daily. ) Disp: 90 tablet Rfl: 0 ondansetron orally disintegrating (ZOFRAN ODT) 4 mg disintegrating tablet Take 1 tablet by mouth every 6 hours as needed for Nausea/Vomiting. Disp: 20 tablet Rfl: 0 nitroglycerin sublingual (NITROQUICK) 0.4 mg SL tablet Dissolve 0.4 mg under the tongue every 5 minutes as needed. Up to 3 max Disp: Rfl: warfarin 4 mg tablet Per Cardiology: 4 mg 6 days a week and 2 mg once a week. Disp: Rfl: 0 CYANOCOBALAMIN, VITAMIN B-12, (VITAMIN B-12 ORAL) Take by mouth. Disp: Rfl: rosuvastatin (CRESTOR) 40 mg tablet Take 40 mg by mouth once daily. Disp: Rfl: furosemide (LASIX) 40 mg tablet Take 40 mg by mouth once daily. Disp: Rfl: Aspirin 81 mg ORAL Tab Take 81 mg by mouth. Disp: Rfl: CALCIUM CARBONATE/VITAMIN D3 (CALCIUM + D ORAL) Take by mouth. Disp: Rfl: No current facility-administered medications for this visit. DTAP,TDAP,TD(1 - Tdap) due on 1957 INFLUENZA(1) due on 04/16/2018 EXAM: BP 130/66 Pulse 72 Temp 36.4 ?C (97.5 ?F) Resp 20 Wt 100.7 kg (222 lb) BMI 36.94 kg/m? Pleasant obese adult woman in no acute distress. Alert and oriented all spheres. Normal affect and cognition. Speech normal. No deficits to learning or comprehension. Skin warm, dry, pink to lips and nailbeds. Normal turgor. Respirations regular and unlabored. Chest CTA. HRRR without murmur or gallop. Extrem: no clubbing, cyanosis, edema. Extremities are warm and pink with prompt capillary refill. Bilateral feet without signs of trauma, swelling, erythema, deformity outside of mild bunions. She does have unusually large ankle pads. She has nonpitting edema. Patient is tender over plantar fascia bilaterally. Was having pain in the right foot. Myofascial release to tender trigger points actually improved her discomfort. Similarly, patient shows no overt signs of arthritis in hands. She have tender trigger point in the right thenar eminence. 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 ASSESSMENT/PLAN: 1. Foot pain, bilateral - ICD9: 729.5, ICD10: M79.671, M79.672 (primary diagnosis) Patient has been seeing Dr. castillo for this condition. Recommended she follow up with him to review complications. Due to Coumadin therapy NSAIDs are not recommended. We did talk about Hernandez 2 inhibitors being less worrisome for disrupting Coumadin and might be considered as a trial. Prior to that I would like patient to try [id number] use of Biofreeze, capsaicin cream. If not improving may consider addition of meloxicam or Celebrex. Patient did have an elevated sedimentation rate of 43 and 56 in July. We'll recheck. Other rheumatic checks were negative at that time. - SED RATE SERAERGREN 2. Right hand pain - ICD9: 729.5, ICD10: M79.641 As above - SED RATE AVERY Follow-up in one week with progress report. Magdalene Johnson PA-C CNOV Observed: 04/12/2018 Status: COMPLETED Source: [place] 10:00 AM [facility] REPOSITORY Office Visit (FAMPWS) BRITTANY LORENZO ([id number]) 1940 F Date Time Provider Department 04/12/18 10:00 AM Magdalene JOHNSON) FAMPWS During your visit today, we recorded the following information about you: Temperature Pulse Respiration Blood pressure 97.5 degrees 72/minute 20/minute 130/66 Weight 100.7 kg M Colin Johnson PA-C 04/12/2018 4:53 PM Signed BP 130/66 Pulse 72 Temp 36.4 ?C (97.5 ?F) Resp 20 Wt 100.7 kg (222 lb) BMI 36.94 kg/m? 77 year old female with c/o bilateral foot pain. Saw Dr. Alejo: xrays showed degenerative arthritis in both feet. Has gel inserts. Feet and hands hurt. Shooting pain. HISTORIES FAMILY HISTORY Problem Relation Age of Onset - Heart Mother - Cancer Father of esophageal cancer PAST MEDICAL HISTORY Diagnosis Date - Backache, unspecified In pain management with Dr. Reyna - Cardiomyopathy (HCC) - Compression fracture of L4 lumbar vertebra (HCC) Dr. Polo prescribing pain meds - Coronary artery disease Dr Mendez; s/p CABG, no IA - Depression - Diabetes mellitus, type 2 (HCC) - Diabetic retinopathy, nonproliferative, moderate (HCC) - Hiatal hernia - History of DVT (deep vein thrombosis) cardiology manages, coumadin. after CABG(PE), (L leg) heart cath, and (R leg) knee surgery - Hyperlipidemia - Hypertension - Pain management Sees Dr. Reyna at [facility] for back - Peripheral neuropathy - Shortness of breath PAST SURGICAL HISTORY Procedure Laterality Date - APPENDECTOMY - BREAST BIOPSY left, aspiration and excision of cyst - COLONOSCOP W/ OR W/O [facility] SPEC 12 years ago Colonoscopy - COLONOSCOP W/ OR W/O [facility] SPEC 03/30/11 - EGD W/O [facility] SPECIMEN W/BX 03/30/11 - EGD W/O OR W/BRUSH/WASH 11/22/2013 EGD - EGD W/O OR W/BRUSH/WASH 04/24/2016 EGD - ESOPHAGEAL DILATATION 03/30/11 - HEART CATHETERIZATION - HEART SURGERY HX - LAPAROSCOPIC CHOLEYCYSTECTOMY 1997 Cholecystectomy, lap - PAST SURGICAL HISTORY OF 1958 bowel surgery, perforation - PAST SURGICAL HISTORY OF 2000 left knee laparthroscopy - PAST SURGICAL HISTORY OF 07/26/14 lumbar pain injections - REDUCTION OF LARGE BREAST 1995 - REPAIR HEART WND W CP BYPASS 2002 bypass x 6, Dr. Becerra[facility] - TOTAL ABDOM HYSTERECTOMY 1990 TATIANA/BSO; benign menorrhagia, endometriosis - TOTAL KNEE REPLACEMENT Right 2007 right partial knee replacement/ Dr. 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 Social History Main Topics Smoking status: Never Smoker Smokeless tobacco: Never Used Alcohol use: No Drug use: No Sexual activity: No ACTIVE PROBLEM LIST Diaphragmatic Hernia Without Mention of Obstruction Or Gangrene Acute Gastritis Without Mention of Hemorrhage Knee Pain History of Dvt (Deep Vein Thrombosis) Coronary Artery Disease Peripheral Neuropathy Diabetes Mellitus, Type 2 (Hcc) Hypertension Hyperlipidemia Depression Backache, Unspecified Arthritis of Knee Diabetic Retinopathy, Nonproliferative, Moderate (Hcc) Osteoporosis Degeneration of Lumbar Or Lumbosacral Intervertebral Disc Hip Pain Lumbosacral Neuritis Enthesopathy of Hip Region Right-Sided Low Back Pain With Right-Sided Sciatica Osteoarthritis of Spine With Radiculopathy, Lumbar Region Oropharyngeal Dysphagia Current Outpatient Prescriptions: tiZANidine (ZANAFLEX) 4 mg tablet Take 1 tablet by mouth every 8 hours as needed. Disp: 20 tablet Rfl: 0 COMPOUNDED PRESCRIPTION Powerstep gel insert(M77.41, M77.42) Metatarsalgia of both feet (primary encounter diagnosis)(M25.579) Pain in joint involving ankle and foot, unspecified laterality(M21.41, M21.42) Pes planus of both feet Disp: 1 Device Rfl: 0 amitriptyline (ELAVIL) 25 mg tablet Take 1 tablet by mouth daily at bedtime. Disp: 30 tablet Rfl: 3 gabapentin (NEURONTIN) 600 mg tablet Take 1 tablet by mouth four times daily for 90 days. Disp: 120 tablet Rfl: 5 estradiol (ESTRACE) 0.01 % (0.1 mg/gram) vaginal cream Apply pea-sized amount to perineum and 1 applicator vaginally twice a week for atrophic vaginitis. Disp: 30 g Rfl: 5 omeprazole (PRILOSEC) 20 mg capsule Take 1 capsule by mouth twice daily. Disp: 60 capsule Rfl: 11 warfarin (COUMADIN) 5 mg tablet Per cardiology (Patient taking differently: Per cardiology: 4 mg 6 days a week and 2 mg once a week. ) Disp: Rfl: metoprolol tartrate, short acting, (LOPRESSOR) 100 mg tablet Take 100 mg by mouth once daily. Disp: Rfl: isosorbide mononitrate ER (IMDUR) 120 mg 24 hr tablet Take 120 mg by mouth once daily. Disp: Rfl: losartan (COZAAR) 50 mg tablet Take 1 tablet by mouth once daily. (Patient taking differently: Take 100 mg by mouth once daily. ) Disp: 90 tablet Rfl: 0 ondansetron orally disintegrating (ZOFRAN ODT) 4 mg disintegrating tablet Take 1 tablet by mouth every 6 hours as needed for Nausea/Vomiting. Disp: 20 tablet Rfl: 0 nitroglycerin sublingual (NITROQUICK) 0.4 mg SL tablet Dissolve 0.4 mg under the tongue every 5 minutes as needed. Up to 3 max Disp: Rfl: warfarin 4 mg tablet Per Cardiology: 4 mg 6 days a week and 2 mg once a week. Disp: Rfl: 0 CYANOCOBALAMIN, VITAMIN B-12, (VITAMIN B-12 ORAL) Take by mouth. Disp: Rfl: rosuvastatin (CRESTOR) 40 mg tablet Take 40 mg by mouth once daily. Disp: Rfl: furosemide (LASIX) 40 mg tablet Take 40 mg by mouth once daily. Disp: Rfl: Aspirin 81 mg ORAL Tab Take 81 mg by mouth. Disp: Rfl: CALCIUM CARBONATE/VITAMIN D3 (CALCIUM + D ORAL) Take by mouth. Disp: Rfl: No current facility-administered medications for this visit. DTAP,TDAP,TD(1 - Tdap) due on 1957 INFLUENZA(1) due on 04/16/2018 EXAM: BP 130/66 Pulse 72 Temp 36.4 ?C (97.5 ?F) Resp 20 Wt 100.7 kg (222 lb) BMI 36.94 kg/m? Pleasant obese adult woman in no acute distress. Alert and oriented all spheres. Normal affect and cognition. Speech normal. No deficits to learning or comprehension. Skin warm, dry, pink to lips and nailbeds. Normal turgor. Respirations regular and unlabored. Chest CTA. HRRR without murmur or gallop. Extrem: no clubbing, cyanosis, edema. Extremities are warm and pink with prompt capillary refill. Bilateral feet without signs of trauma, swelling, erythema, deformity outside of mild bunions. She does have unusually large ankle pads. She has nonpitting edema. Patient is tender over plantar fascia bilaterally. Was having pain in the right foot. Myofascial release to tender trigger points actually improved her discomfort. Similarly, patient shows no overt signs of arthritis in hands. She have tender trigger point in the right thenar eminence. 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 ASSESSMENT/PLAN: 1. Foot pain, bilateral - ICD9: 729.5, ICD10: M79.671, M79.672 (primary diagnosis) Patient has been seeing Dr. castillo for this condition. Recommended she follow up with him to review complications. Due to Coumadin therapy NSAIDs are not recommended. We did talk about Hernandez 2 inhibitors being less worrisome for disrupting Coumadin and might be considered as a trial. Prior to that I would like patient to try [id number] use of Biofreeze, capsaicin cream. If not improving may consider addition of meloxicam or Celebrex. Patient did have an elevated sedimentation rate of 43 and 56 in July. We'll recheck. Other rheumatic checks were negative at that time. - SED RATE WESTERGREN 2. Right hand pain - ICD9: 729.5, ICD10: M79.641 As above - SED RATE WESTERGREN Follow-up in one week with progress report. Magdalene Johnson PA-C M Colin Johnson PA-C 04/12/2018 10:57 AM Signed May use any of the following OTC as discussed: Biofreeze, topical lidocaine, Capsaicin cream. If not effective we can try some other things. Referring Provider: SELF [200] Allergies As of Date: 04/12/2018 Noted Allergy Reaction WILDA INHIBITORS 05/23/2014 3 - Cough Comments: WILDA cough DOXYCYCLINE 01/22/2012 7 - Swelling Comments: Tongue and feet KEFLEX (CEPHALEXIN) 07/16/2014 11 - Vomiting PENICILLINS 01/22/2011 2 - Rash Comments: edema PERCOCET (OXYCODONE-ACETAMINOPHEN)03/29/2013 8 - GI Upset Comments: Patient has taken, needs to eat prior to taking. SULFA (SULFONAMIDE ANTIBIOTICS) 01/22/2011 2 - Rash TETRACYCLINE 01/22/2011 2 - Rash Comments: difficulty breathing Date Reviewed: 04/12/2018 Reviewed by: Nargis Cobos LPN - Fully Assessed Reason for Visit: Pain [78] Cmt: foot pain Primary Visit Diagnosis:Foot pain, bilateral [M79.671, M79.672] Other Visit Diagnosis:Right hand pain [M79.641] Order(s):YAMILET TRIPAHTI AVERY [SQWSR] Order #: [id number] FUTURE Prescriptions as of 04/12/2018 Sig: COMPOUNDED PRESCRIPTION Powerstep gel insert (M77.41* AMITRIPTYLINE 25 MG TABLET Take 1 tablet by mouth daily * GABAPENTIN 600 MG TABLET Take 1 tablet by mouth four t* ESTRADIOL 0.01% (0.1 MG/GRAM)* Apply pea-sized amount to per* OMEPRAZOLE 20 MG CAPSULE,YANETH* Take 1 capsule by mouth twice* WARFARIN 5 MG TABLET Per cardiology Patient taking differently: Per cardiology: 4 mg 6 days a* METOPROLOL TARTRATE 100 MG TA* Take 100 mg by mouth once melanie* ISOSORBIDE MONONITRATE ER 120* Take 120 mg by mouth once melanie* LOSARTAN 50 MG TABLET Take 1 tablet by mouth once d* Patient taking differently: Take 100 mg by mouth once melanie* ONDANSETRON 4 MG DISINTEGRATI* Take 1 tablet by mouth every * NITROGLYCERIN 0.4 MG SUBLINGU* Dissolve 0.4 mg under the ton* WARFARIN 4 MG TABLET Per Cardiology: 4 mg 6 days * VITAMIN B-12 ORAL Take by mouth. * ROSUVASTATIN 40 MG TABLET Take 40 mg by mouth once alondra* * FUROSEMIDE 40 MG TABLET Take 40 mg by mouth once alondra* * ASPIRIN 81 MG TABLET Take 81 mg by mouth. * CALCIUM + D ORAL Take by mouth. Problem List As Of Date 04/12/2018 Noted Resolved Diaphragmatic hernia without mention of obstruc*INVALID FOR* Acute gastritis without mention of hemorrhage [*INVALID FOR* Dysphagia, unspecified [R13.10] INVALID FOR*11/23/2016 Knee pain [M25.569] INVALID FOR* History of DVT (deep vein thrombosis) [Z86.718] More... Coronary artery disease [I25.10] More... Peripheral neuropathy [G62.9] More... Diabetes mellitus, type 2 [E11.9] Hypertension [I10] Hyperlipidemia [E78.5] Depression [F32.9] Backache, unspecified [M54.9] Arthritis of knee [M17.10] INVALID FOR* Diabetic retinopathy, nonproliferative, moderat* Osteoporosis [M81.0] INVALID FOR* Lumbar radiculopathy [M54.16] INVALID FOR*12/19/2014 DDD (degenerative disc disease), lumbar [M51.36]INVALID FOR*12/19/2014 Lumbar spondylosis [M47.816] INVALID FOR*02/27/2015 Degeneration of lumbar or lumbosacral intervert*INVALID FOR* Lumbago [M54.5] INVALID FOR*12/19/2014 Hip pain [M25.559] INVALID FOR* Lumbosacral neuritis [M54.17] INVALID FOR* Low back pain [M54.5] INVALID FOR*02/27/2015 Enthesopathy of hip region [M76.899] INVALID FOR* Right-sided low back pain with right-sided scia*INVALID FOR* Osteoarthritis of spine with radiculopathy, lum*INVALID FOR* Oropharyngeal dysphagia [R13.12] INVALID FOR* Other instructions from your clinician: May use any of the following OTC as discussed: Biofreeze, topical lidocaine, Capsaicin cream. If not effective we can try some other things. Medications Discontinued During This Encounter tiZANidine (ZANAFLEX) 4 mg tablet 20 t* 0 04/01/2018 04/12/2018 Route: ORAL Sig: Take 1 tablet by mouth every 8 hours as needed. Disc: Reason for discontinue is not on file. Encounter Status:Closed by Magdalene JOHNSON PA-C on 04/12/18 PROTHROMBIN TIME W/INR Collected: 04/12/2018 Status: F Source: [place] 9:04 AM [facility] REPOSITORY TYPE CODE TESTS RESULT OUT OF RANGE REFERENCE UNITS LAB L300.4150 11.7-14.9 SECONDS High PROTIME 32.5 LAB L300.4200 Normal INR 3.1 Performed By: #### L300.3900 #### [facility] [address] [place], [place], [address] CARDIOLOGY VISIT Observed: 04/05/2018 Status: F Source: [place] REPORT 11:25 AM [facility] REPOSITORY [facility] [address] [place] [address] OFFICE VISIT Date of Service: 04/05/18 MR#: [id number] Acct: [id number] Name: BRITTANY LORENZO Rep #: [id number] : 1940 Provider: Bre Marinelli Age/Sex: 77/F Location: [facility] Status: Signed HPI HPI Details: BRITTANY LORENZO, is a 77 F who presents to the office today for a cardiovascular follow-up. She has a history of coronary artery disease with bypass surgery with an QIU to the LAD, SVG to the diagonal and RCA. She did complete ECP therapy. She has not had any chest pain/heaviness/tightness. She does not have any worsening SOB. She does not have palpitations. She does occasionally have dizziness. She also has issues with her balance but feels that this is related to her arthritis. She does not have any palpitations. She does have edema, this is not new. 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 Setter Required: No Accompanied by: Is patient in pain?: No Allergies Sulfa (Sulfonamide Antibiotics) Allergy (Verified 04/05/18 10:48) Rash doxycycline Adverse Reaction (Mild, Verified 04/05/18 10:48) Swelling cephalexin monohydrate [From Keflex] Adverse Reaction (Verified 04/05/18 10:48) Upset Stomach dicyclomine Adverse Reaction (Verified 04/05/18 10:48) Other NSAIDS (Non-Steroidal Anti-Inflamma Adverse Reaction (Verified 04/05/18 10:48) Other Penicillins Adverse Reaction (Verified 04/05/18 10:48) Unknown tetracycline [Tetracycline] Adverse Reaction (Verified 04/05/18 10:48) Swelling Medications Aspirin E.C. [Ecotrin] 81 mg PO DAILY@0800 03/08/17 [History Confirmed 04/05/18] Calcium Carbonate/Vitamin D3 [Calcium 500-Vit D3 600 Caplet] 1 ea PO BID 03/08/17 [History Confirmed 04/05/18] Diphenhydramine HCl [Sleep Aid] 50 mg PO QHS 03/08/17 [History Confirmed 04/05/18] Furosemide [Lasix] 40 mg PO DAILY 03/08/17 [History Confirmed 04/05/18] Gabapentin [Neurontin] 600 mg PO 4X/DAY 03/08/17 [History Confirmed 04/05/18] Omeprazole [Prilosec] 20 mg PO BID 03/08/17 [History Confirmed 04/05/18] losartan 100 mg tablet 100 mg PO QDAY #90 tab 08/24/17 [Rx Confirmed 04/05/18] isosorbide mononitrate ER 120 mg tablet,extended release 24 hr 120 mg PO DAILY #90 tab 10/18/17 [Rx Confirmed 04/05/18] metoprolol succinate ER 100 mg tablet,extended release 24 hr 100 mg PO DAILY #30 tab 11/16/17 [Rx Confirmed 04/05/18] Cyanocobalamin [Vitamin B12] 500 mcg PO DAILY@0800 12/07/17 [History Confirmed 04/05/18] rosuvastatin 40 mg tablet 40 mg PO DAILY #90 tab 12/24/17 [Rx Confirmed 04/05/18] warfarin 1 mg tablet 1 mg PO .COMPLEX #30 tab 03/21/18 [Rx Confirmed 04/05/18] warfarin 4 mg tablet 4 mg PO .COMPLEX #30 tab 03/21/18 [Rx Confirmed 04/05/18] Ejection fraction %: 30 to 34 PFSH Medical History LBBB (left bundle branch block) (Acute) Atherosclerotic heart disease of [place] coronary artery without angina pectoris (Chronic) Atherosclerosis of coronary artery bypass graft(s), unspecified, with other forms of angina pectoris (Chronic) 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 (Chronic) care home current use of anticoagulant (Chronic) NSTEMI (non-ST elevated myocardial infarction) (Resolved) Benign hypertension (Chronic) Hyperlipidemia (Chronic) Obesity (Chronic) Diabetes mellitus, type 2 (Chronic) Systolic CHF, chronic (Chronic) Thromboembolic disorder (Chronic) Ischemic cardiomyopathy (Chronic) Abnormal stress test (Acute) History of DVT (deep vein thrombosis) (Acute) GERD (gastroesophageal reflux disease) (Chronic) History of esophageal stricture (Chronic) History of pulmonary embolism (Chronic) History of left heart catheterization (Resolved) Surgical History Aortocoronary bypass status (Chronic 10/09/02) H/O arthroscopic knee surgery (Resolved) History of partial knee replacement (Resolved) History of total hysterectomy (Resolved) History of tubal ligation (Resolved) Hx of bilateral breast reduction surgery (Resolved) Hx of cholecystectomy (Resolved) Family History Mother Myocardial infarction Hypertension Heart disease History of coronary artery bypass graft Brother Hypertension History of coronary artery bypass graft Father Cancer esophageal Social History Smoking Status: Never smoker alcohol intake: never substance use type: does not use caffeine: Yes Type: coffee Number of servings: 3, carbonated beverages what type of physical activity do you participate in: other details: cardiac rehab frequency: 3-4 times per week duration: 45-60 minutes/day seatbelt use: always do you feel safe at home: Yes ROS Const Const: Negative for weakness, fatigue, fever(s) or headache(s) Eyes Eyes: Negative for blind spots, loss of peripheral vision or transient loss of vision ENT ENT: Positive for balance problems; negative for headache(s) Cardio Chest Pain: No Palpitations: No Edema: None Muscle aches with walking: None Resp Respiratory: Negative for SOB with activity, SOB at rest, SOB orthopnea\SOB lying down or Cough GI GI: Negative nausea, vomiting, heartburn or vomiting blood/hematemesis : Negative for hematuria Musc Musc: Positive for muscle aches/ myalgia, muscle weakness, joint pain and balance problems Neuro Neuro: Negative for weakness or headache(s) Nirav Hematologic/Lymphatic: Negative for easy bleeding Endo Endo: Negative for fatigue Cardiology Exam Const Appearance: cooperative, no acute distress and well developed Orientation: alert, awake and oriented x3 Head Head: normocephalic and atraumatic Mouth: moist mucous membranes Eyes General: appearance normal, both eyes and all related structures Conjunctivae: conjunctivae normal Pupils: PERRL EOM: EOM intact bilaterally Neck Neck: normal visual inspection, no lymphadenopathy and no JVD Carotids: Negative bruit Neck Mass: Negative Neck mass Chest Chest inspection: normal inspection of the chest and symmetric chest movement Auscultation: Bilateral: Clear to Auscultation Cardio Palpation: normal PMI Rate: regular rate Rhythm: regular rhythm Heart sounds: S1 normal, S2 normal and murmur; negative rub or gallop Murmur: harsh, mid systolic, Grade 3/6 and soft GI GI: normal to inspection, soft, no hepatosplenomegaly and bowel sounds present; negative tender Neuro General: alert, awake, oriented x3, CN's II-XI intact bilaterally and moves all extremities Extremities Pulses: Normal: Right Posterior Tibial Pulse, Left Posterior Tibial Pulse, Right Radial Pulse, Left Radial Pulse Lower Extremity Edema: None: Bilateral Psych Psychological: normal affect Supplemental Info Heart catheterization in 2017 for an abnormal stress test which demonstrated left main normal, mid LAD totally occluded, proximal SVG Y graft to the first diagonal patent, circumflex totally occluded after the first obtuse marginal, severe disease involving the first obtuse marginal and second obtuse marginal, RCA totally occluded. 2 saphenous vein grafts to the RCA and obtuse marginal branches were occluded which this was known previously. Collateral flow from the LAD to the right posterior descending noted. Echocardiogram at that time demonstrated an ejection fraction of 37%. Medical management was recommended. Echocardiogram in 2017 demonstrates normal LV size, moderate segmental systolic dysfunction with an estimated ejection fraction of 37%. Mild tricuspid insufficiency. Assessment AND Plan 1. Atherosclerosis of [place] coronary artery of [place] heart without angina pectoris I25.10 Plan Patient does not have any further symptoms of angina since doing ECP therapy. We will continue to monitor. She was advised to let us know if she has any further symptoms. Orders Orders: 2. HTN (hypertension), benign I10 Plan Blood pressure is adequately controlled. Will not make any adjustments. Orders Orders: 3. Pure hypercholesterolemia E78.00 Plan Patient will remain on her moderate intensity statin. She will need to have her lipids checked in the near future. Orders Orders: 4. Ischemic cardiomyopathy I25.5 Plan Patient does not have any symptoms of congestive heart failure. We will not make any adjust, will continue with current medications. Plan Detail Additional Comments Thank you for allowing us to participate in the patients plan of care, if you have any questions please do not hesitate to call. This note was generated using a voice recognition system and there may be incorrect words, spelling or punctuation that were not noted when reviewing the office note prior to saving. Follow Up 04/05/18 (Keep as is) Coding Level of Care Code Off vis,est,level 3 Diagnoses Atherosclerosis of [place] coronary artery of [place] heart without angina pectoris I25.10 [place] vs. transplanted heart: [place] heart HTN (hypertension), benign I10 Pure hypercholesterolemia E78.00 Hyperlipidemia type: pure hypercholesterolemia Ischemic cardiomyopathy I25.5 Coding Level of Care Code Off vis,est,level 3 Diagnoses Atherosclerosis of [place] coronary artery of [place] heart without angina pectoris I25.10 [place] vs. transplanted heart: [place] heart HTN (hypertension), benign I10 Pure hypercholesterolemia E78.00 Hyperlipidemia type: pure hypercholesterolemia Ischemic cardiomyopathy I25.5 08/21/18 1125 <Electronically signed by Bre GILLESPIE> Date Bre GILLESPIE Cosigner Signature: Date (if applicable) CC: Osiel Flower MD PROTHROMBIN TIME W/INR Collected: 03/21/2018 Status: F Source: [place] 2:07 PM [facility] REPOSITORY TYPE CODE TESTS RESULT OUT OF RANGE REFERENCE UNITS LAB L300.4150 11.7-14.9 SECONDS High PROTIME 24.7 LAB L300.4200 Normal INR 2.2 Performed By: #### L300.3900 #### [facility] [address] [place], [address] PROGRESS Observed: 03/07/2018 Status: COMPLETED Source: [place] 11:11 AM [facility] [place] REPOSITORY O ID: [id number] Author: Suraj Alejo Service: (none) Author Type: Physician Type: Progress Notes Filed: 03/07/2018 11:30 AM Note Text: ? Suraj Alejo DPM Department of Podiatry [address] [place] [id number] Dept: [phone] Dept 03/07/[address] Flower for an opinion regarding b/l foot pain. My final recommendations will be communicated back to the requesting physician by way of shared Medical record or letter to requesting physician via US mail. Initial Podiatric Office Visit: HPI: Brittany Lorenzo is a 77 year old female. Patient presents with:Bilateral foot pain for the past several years. She denies any injury to her feet. Pain is rated at 8/10, and described as sharp and constant. She has taken tylenol but it doesn't help. She states I need something stronger than that. Her PCP prescribed amitriptyline for the pain but she says that it doesn't help either. She has only taken the amitriptyline for 3 days. She has an xray to review. PCP: Osiel Flower MD PAST MEDICAL HISTORY Diagnosis Date - Backache, unspecified In pain management with Dr. Reyna - Cardiomyopathy ([facility]) - Compression fracture of L4 lumbar vertebra ([facility]) Dr. Polo prescribing pain meds - Coronary artery disease Dr Mendez; s/p CABG, no IA - Depression - Diabetes mellitus, type 2 (HCC) - Diabetic retinopathy, nonproliferative, moderate (HCC) - Hiatal hernia - History of DVT (deep vein thrombosis) cardiology manages, coumadin. after CABG(PE), (L leg) heart cath, and (R leg) knee surgery - Hyperlipidemia - Hypertension - Pain management Sees Dr. Reyna at [facility] for back - Peripheral neuropathy - Shortness of breath Current Outpatient Prescriptions: amitriptyline (ELAVIL) 25 mg tablet Take 1 tablet by mouth daily at bedtime. tiZANidine (ZANAFLEX) 4 mg tablet Take 1 tablet by mouth every 8 hours as needed. gabapentin (NEURONTIN) 600 mg tablet Take 1 tablet by mouth four times daily for 90 days. estradiol (ESTRACE) 0.01 % (0.1 mg/gram) vaginal cream Apply pea-sized amount to perineum and 1 applicator vaginally twice a week for atrophic vaginitis. omeprazole (PRILOSEC) 20 mg capsule Take 1 capsule by mouth twice daily. warfarin (COUMADIN) 5 mg tablet Per cardiology (Patient taking differently: Per cardiology: 4 mg 6 days a week and 2 mg once a week. ) metoprolol tartrate, short acting, (LOPRESSOR) 100 mg tablet Take 100 mg by mouth once daily. isosorbide mononitrate ER (IMDUR) 120 mg 24 hr tablet Take 120 mg by mouth once daily. losartan (COZAAR) 50 mg tablet Take 1 tablet by mouth once daily. (Patient taking differently: Take 100 mg by mouth once daily. ) ondansetron orally disintegrating (ZOFRAN ODT) 4 mg disintegrating tablet Take 1 tablet by mouth every 6 hours as needed for Nausea/Vomiting. nitroglycerin sublingual (NITROQUICK) 0.4 mg SL tablet Dissolve 0.4 mg under the tongue every 5 minutes as needed. Up to 3 max warfarin 4 mg tablet Per Cardiology: 4 mg 6 days a week and 2 mg once a week. CYANOCOBALAMIN, VITAMIN B-12, (VITAMIN B-12 ORAL) Take by mouth. rosuvastatin (CRESTOR) 40 mg tablet Take 40 mg by mouth once daily. furosemide (LASIX) 40 mg tablet Take 40 mg by mouth once daily. Aspirin 81 mg ORAL Tab Take 81 mg by mouth. CALCIUM CARBONATE/VITAMIN D3 (CALCIUM + D ORAL) Take by mouth. No current facility-administered medications for this visit. ALLERGIES Allergen Reactions - Wilda Inhibitors Cough WILDA cough - Doxycycline Swelling Tongue and feet - Keflex [Cephalexin] Vomiting - Penicillins Rash edema - Percocet [Oxycodone* GI Upset Patient has taken, needs to eat prior to taking. - Sulfa (Sulfonamide * Rash - Tetracycline Rash difficulty breathing PAST SURGICAL HISTORY Procedure Laterality Date - APPENDECTOMY - BREAST BIOPSY left, aspiration and excision of cyst - COLONOSCOP W/ OR W/O BRSH SPEC 12 years ago Colonoscopy - COLONOSCOP W/ OR W/O BRSH SPEC 03/30/11 - EGD W/O BRSH SPECIMEN W/BX 03/30/11 - EGD W/O OR W/BRUSH/WASH 11/22/2013 EGD - EGD W/O OR W/BRUSH/WASH 04/24/2016 EGD - ESOPHAGEAL DILATATION 03/30/11 - HEART CATHETERIZATION - HEART SURGERY HX - LAPAROSCOPIC CHOLEYCYSTECTOMY 1997 Cholecystectomy, lap - PAST SURGICAL HISTORY OF 1958 bowel surgery, perforation - PAST SURGICAL HISTORY OF 2000 left knee laparthroscopy - PAST SURGICAL HISTORY OF 07/26/14 lumbar pain injections - REDUCTION OF LARGE BREAST 1995 - REPAIR HEART WND W CP BYPASS 2003 bypass x 6, Dr. Becerra/[facility] - TOTAL ABDOM HYSTERECTOMY 1990 [place]/BSO; benign menorrhagia, endometriosis - TOTAL KNEE REPLACEMENT Right 2007 right partial knee replacement/ Dr. Hussein FAMILY HISTORY Problem Relation Age of Onset - Heart Mother - Cancer Father of esophageal cancer Social History Marital status: Spouse name: Years of education: Number of children: 2 Occupational History Occupation Employer [employer] Social History Main Topics Smoking status: Never Smoker Smokeless tobacco: Never Used Alcohol use: No Drug use: No Sexual activity: No REVIEW OF SYSTEMS: CONSTITUTIONAL: No fevers, chills, nightsweats, unintended weight loss HEENT: Denies frequent or severe heaches, nasal congestion/sinus symptoms, problematic allergy problems. EYES: No diplopia or blurry vision. CARDIOVASCULAR: No chest pain, dyspnea, palpitations, orthopnea, PND, ankle edema. PULM: No dyspnea, unexplained cough. GI: No dysphagia/odynophagia, problematic reflux, constipation, diarrhea, changes in stool habits, hematochezia, melena. : No new urinary complaints, including dysuria, gross hematuria or pyuria. NEURO: No new balance problems, peripheral weakness/paresthesias or numbness of concern. MUSC-SKEL: B/L foot pain. PSY: No concerns regarding depression, anxiety or panic. INTEGUMENTARY: No new skin changes (rash, new or changing mole, new growth) Physical Exam: Constitutional: Pt is a well developed 77 year old female who is alert, oriented and cooperative Eyes: Following during examination. No redness or drainage. Respiratory: RR normal and nonlabored. Even breathing. No evidence of distress or shortness of breath. Psychology: Patient is engaged during conversation. Normal affect and mood. Does not appear depressed or anxious during encounter. Vascular: Dorsalis pedis and posterior tibial pulses palpable as b/l Capillary Fill time < 5 seconds to digits 1-5 b/l Skin temperature warm to warm proximal to distal b/l Hair growth present to digits Swelling present to b/l feet Neurological: intact light touch/epicritic sensation Dermatological: Nails 1-5 b/l appear Normal. Webspaces clean and dry 1-4 b/l. Skin appears well hydrated and supple. good color, texture, turgor. Callosities absent. .Open lesions absent. Wound: Not present. Musculoskeletal/Orthopaedic: Patient has pain to palpation of ball of b/l feet across 1- 5 metatarsal heads. Swelling present to b/l feet Atrophy of b/l fat pad noted Foot type is pronated structurally AJ ROM is full with knee extended and flexed 1st MPJ is full when loaded and no pain or crepitus are noted with ROM. MTJ, STJ are full and free of pain and crepitus. +5/5 muscle strength dorsiflexion, plantarflexion, inversion, eversion b/l Radiographs: 3 views of b/l feet reviewed. No acute fracture noted. Mild arthritis present of b/l midfoot. There is b/l heel spur ASSESSMENT: (M77.41, M77.42) Metatarsalgia of both feet (primary encounter diagnosis) (M25.579) Pain in joint involving ankle and foot, unspecified laterality (M21.41, M21.42) Pes planus of both feet PLAN: 1. History and physical examination performed. 2. Patient was examined and informed of current findings 3. Discussed pain of b/l feet. Suspect component of bursitis/metatarsalgia due to atrophy of fat pad. Recommend she continue with amitriptyline as she just started this last week. Recommend she purchase otc gel insert for added support/cushion in shoes. Avoid barefoot walking. I will have her follow-up in 3 weeks. If no improvement, consider steroid injection 4. Patient asking for pain medication. Recommend she try the inserts and continue with amitriptyline. Suraj Alejo DPM XR FOOT 3V AP/LAT/OBL Observed: 03/07/2018 Status: F Source: [place] 10:50 AM [facility] REPOSITORY * * *Final Report* * * DATE OF EXAM: Mar 07 2018 10:50AM WRX [id number] - XR FOOT 3V AP/LAT/OBL [place] / PROCEDURE REASON: multiple diagnoses * * * * Physician Interpretation * * * * HISTORY: 77-YEAR-OLD FEMALE WITH Pain in right foot Pain in left foot . bilateral feet pain and swelling/best possible images TECHNIQUE: XR FOOT 3V AP/LAT/OBL [place] Laterality: BILATERAL Number of different views (projections): 3each COMPARISON: None RESULT: Right foot: Mild narrowing the IP joint great toe. Narrowing of PIP and DIP joints. Narrowing the first and third tarsometatarsal joint. Enthesophyte the base of the fifth metatarsal. Calcaneal enthesophyte insertion of the Achilles tendon. Faint calcifications in the plantar fascia distal to the insertion of the calcaneus.. Left foot: Narrowing of PIP and DIP joints. Osteopenia. Narrowing of second through fourth tarsometatarsal joints. Enthesophyte the base of fifth metatarsal. Enthesophyte on the calcaneus at the insertion of the Achilles tendon. Calcination plantar fascia distal to the insertion calcaneus at the level of the calcaneocuboid articulation. Arterial calcifications are present. IMPRESSION: DEGENERATIVE JOINT DISEASE OF THE FOREFOOT AND MIDFOOT BILATERALLY. OSTEOPENIA. NO ACUTE BONY ABNORMALITY Cigarette Book Maker: MILDRDE Transcribe Date/Time: Mar 08 2018 11:55A Dictated by : SAGAR VARGAS MD This examination was interpreted and the report reviewed and electronically signed by: SAGAR VARGAS MD on Mar 08 2018 11:59AM EST [id number] Observed: 03/07/2018 Status: COMPLETED Source: [place] 10:40 AM [facility] REPOSITORY Office Visit (PODIWS) BRITTANY LORENZO ([id number]) 1940 F Date Time Provider Department 03/07/18 10:40 AM SURAJ ALEJO During your visit today, we recorded the following information about you: Suraj Alejo DPM 03/07/2018 11:30 AM Signed ? Suraj Alejo DPM Department of Podiatry [address] [place] [id number] Dept: [phone] Dept 03/07/[address] Flower for an opinion regarding b/l foot pain. My final recommendations will be communicated back to the requesting physician by way of shared Medical record or letter to requesting physician via US mail. Initial Podiatric Office Visit: HPI: Brittany Magdalene Lorenzo is a 77 year old female. Patient presents with:Bilateral foot pain for the past several years. She denies any injury to her feet. Pain is rated at 8/10, and described as sharp and constant. She has taken tylenol but it doesn't help. She states I need something stronger than that. Her PCP prescribed amitriptyline for the pain but she says that it doesn't help either. She has only taken the amitriptyline for 3 days. She has an xray to review. PCP: Osiel Flower MD PAST MEDICAL HISTORY Diagnosis Date - Backache, unspecified In pain management with Dr. Reyna - Cardiomyopathy (HCC) - Compression fracture of L4 lumbar vertebra (HCC) Dr. Polo prescribing pain meds - Coronary artery disease Dr Mendez; s/p CABG, no IA - Depression - Diabetes mellitus, type 2 (HCC) - Diabetic retinopathy, nonproliferative, moderate (HCC) - Hiatal hernia - History of DVT (deep vein thrombosis) cardiology manages, coumadin. after CABG(PE), (L leg) heart cath, and (R leg) knee surgery - Hyperlipidemia - Hypertension - Pain management Sees Dr. Reyna at [facility] for back - Peripheral neuropathy - Shortness of breath Current Outpatient Prescriptions: amitriptyline (ELAVIL) 25 mg tablet Take 1 tablet by mouth daily at bedtime. tiZANidine (ZANAFLEX) 4 mg tablet Take 1 tablet by mouth every 8 hours as needed. gabapentin (NEURONTIN) 600 mg tablet Take 1 tablet by mouth four times daily for 90 days. estradiol (ESTRACE) 0.01 % (0.1 mg/gram) vaginal cream Apply pea-sized amount to perineum and 1 applicator vaginally twice a week for atrophic vaginitis. omeprazole (PRILOSEC) 20 mg capsule Take 1 capsule by mouth twice daily. warfarin (COUMADIN) 5 mg tablet Per cardiology (Patient taking differently: Per cardiology: 4 mg 6 days a week and 2 mg once a week. ) metoprolol tartrate, short acting, (LOPRESSOR) 100 mg tablet Take 100 mg by mouth once daily. isosorbide mononitrate ER (IMDUR) 120 mg 24 hr tablet Take 120 mg by mouth once daily. losartan (COZAAR) 50 mg tablet Take 1 tablet by mouth once daily. (Patient taking differently: Take 100 mg by mouth once daily. ) ondansetron orally disintegrating (ZOFRAN ODT) 4 mg disintegrating tablet Take 1 tablet by mouth every 6 hours as needed for Nausea/Vomiting. nitroglycerin sublingual (NITROQUICK) 0.4 mg SL tablet Dissolve 0.4 mg under the tongue every 5 minutes as needed. Up to 3 max warfarin 4 mg tablet Per Cardiology: 4 mg 6 days a week and 2 mg once a week. CYANOCOBALAMIN, VITAMIN B-12, (VITAMIN B-12 ORAL) Take by mouth. rosuvastatin (CRESTOR) 40 mg tablet Take 40 mg by mouth once daily. furosemide (LASIX) 40 mg tablet Take 40 mg by mouth once daily. Aspirin 81 mg ORAL Tab Take 81 mg by mouth. CALCIUM CARBONATE/VITAMIN D3 (CALCIUM + D ORAL) Take by mouth. No current facility-administered medications for this visit. ALLERGIES Allergen Reactions - Wilda Inhibitors Cough WILDA cough - Doxycycline Swelling Tongue and feet - Keflex [Cephalexin] Vomiting - Penicillins Rash edema - Percocet [Oxycodone* GI Upset Patient has taken, needs to eat prior to taking. - Sulfa (Sulfonamide * Rash - Tetracycline Rash difficulty breathing PAST SURGICAL HISTORY Procedure Laterality Date - APPENDECTOMY - BREAST BIOPSY left, aspiration and excision of cyst - COLONOSCOP W/ OR W/O BRS SPEC 12 years ago Colonoscopy - COLONOSCOP W/ OR W/O BRSH SPEC 03/30/11 - EGD W/O BRSH SPECIMEN W/BX 03/30/11 - EGD W/O OR W/BRUSH/WASH 11/22/2013 EGD - EGD W/O OR W/BRUSH/WASH 04/24/2016 EGD - ESOPHAGEAL DILATATION 03/30/11 - HEART CATHETERIZATION - HEART SURGERY HX - LAPAROSCOPIC CHOLEYCYSTECTOMY 1997 Cholecystectomy, lap - PAST SURGICAL HISTORY OF 1958 bowel surgery, perforation - PAST SURGICAL HISTORY OF 2000 left knee laparthroscopy - PAST SURGICAL HISTORY OF 07/26/14 lumbar pain injections - REDUCTION OF LARGE BREAST 1995 - REPAIR HEART WND W CP BYPASS 2002 bypass x 6, Dr. Becerra/[facility] - TOTAL ABDOM HYSTERECTOMY 1990 [place]/BSO; benign menorrhagia, endometriosis - TOTAL KNEE REPLACEMENT Right 2007 right partial knee replacement/ Dr. Hussein FAMILY HISTORY Problem Relation Age of Onset - Heart Mother - Cancer Father of esophageal cancer Social History Marital status: Spouse name: Years of education: Number of children: 2 Occupational History Occupation Employer [employer] Social History Main Topics Smoking status: Never Smoker Smokeless tobacco: Never Used Alcohol use: No Drug use: No Sexual activity: No REVIEW OF SYSTEMS: CONSTITUTIONAL: No fevers, chills, nightsweats, unintended weight loss HEENT: Denies frequent or severe heaches, nasal congestion/sinus symptoms, problematic allergy problems. EYES: No diplopia or blurry vision. CARDIOVASCULAR: No chest pain, dyspnea, palpitations, orthopnea, PND, ankle edema. PULM: No dyspnea, unexplained cough. GI: No dysphagia/odynophagia, problematic reflux, constipation, diarrhea, changes in stool habits, hematochezia, melena. : No new urinary complaints, including dysuria, gross hematuria or pyuria. NEURO: No new balance problems, peripheral weakness/paresthesias or numbness of concern. MUSC-SKEL: B/L foot pain. PSY: No concerns regarding depression, anxiety or panic. INTEGUMENTARY: No new skin changes (rash, new or changing mole, new growth) Physical Exam: Constitutional: Pt is a well developed 77 year old female who is alert, oriented and cooperative Eyes: Following during examination. No redness or drainage. Respiratory: RR normal and nonlabored. Even breathing. No evidence of distress or shortness of breath. Psychology: Patient is engaged during conversation. Normal affect and mood. Does not appear depressed or anxious during encounter. Vascular: Dorsalis pedis and posterior tibial pulses palpable as b/l Capillary Fill time < 5 seconds to digits 1-5 b/l Skin temperature warm to warm proximal to distal b/l Hair growth present to digits Swelling present to b/l feet Neurological: intact light touch/epicritic sensation Dermatological: Nails 1-5 b/l appear Normal. Webspaces clean and dry 1-4 b/l. Skin appears well hydrated and supple. good color, texture, turgor. Callosities absent. .Open lesions absent. Wound: Not present. Musculoskeletal/Orthopaedic: Patient has pain to palpation of ball of b/l feet across 1- 5 metatarsal heads. Swelling present to b/l feet Atrophy of b/l fat pad noted Foot type is pronated structurally AJ ROM is full with knee extended and flexed 1st MPJ is full when loaded and no pain or crepitus are noted with ROM. MTJ, STJ are full and free of pain and crepitus. +5/5 muscle strength dorsiflexion, plantarflexion, inversion, eversion b/l Radiographs: 3 views of b/l feet reviewed. No acute fracture noted. Mild arthritis present of b/l midfoot. There is b/l heel spur ASSESSMENT: (M77.41, M77.42) Metatarsalgia of both feet (primary encounter diagnosis) (M25.579) Pain in joint involving ankle and foot, unspecified laterality (M21.41, M21.42) Pes planus of both feet PLAN: 1. History and physical examination performed. 2. Patient was examined and informed of current findings 3. Discussed pain of b/l feet. Suspect component of bursitis/metatarsalgia due to atrophy of fat pad. Recommend she continue with amitriptyline as she just started this last week. Recommend she purchase otc gel insert for added support/cushion in shoes. Avoid barefoot walking. I will have her follow-up in 3 weeks. If no improvement, consider steroid injection 4. Patient asking for pain medication. Recommend she try the inserts and continue with amitriptyline. MUKESH Kumari RN 03/07/2018 11:27 AM Signed Powerstep Gel Comfort Max. Can get at [employer] here in [place], [employer] in [place] or [place]. Also can find in truedash in [facility] or at [employer] in [place]. Powersteps can also be purchased online, starting around $25.00 If you have a metatarsal or dancer pad for your feet apply the pad directly to the insole so you can interchange between your shoes. Find a shoe with a removable insole and take this out and replace with your powerstep insole. Always bring powersteps with you when shopping for shoes so that you can make sure that everything fits well together Referring Provider: OSIEL FLOWER [[id number]] Allergies As of Date: 03/07/2018 Noted Allergy Reaction WILDA INHIBITORS 05/23/2014 3 - Cough Comments: WILDA cough DOXYCYCLINE 01/22/2012 7 - Swelling Comments: Tongue and feet KEFLEX (CEPHALEXIN) 07/16/2014 11 - Vomiting PENICILLINS 01/22/2011 2 - Rash Comments: edema PERCOCET (OXYCODONE-ACETAMINOPHEN)03/29/2013 8 - GI Upset Comments: Patient has taken, needs to eat prior to taking. SULFA (SULFONAMIDE ANTIBIOTICS) 01/22/2011 2 - Rash TETRACYCLINE 01/22/2011 2 - Rash Comments: difficulty breathing Date Reviewed: 03/07/2018 Reviewed by: Colleen Brown RN - Fully Assessed Reason for Visit: New Patient [172] Primary Visit Diagnosis:Metatarsalgia of both feet [M77.41, M77.42] Other Visit Diagnoses:Pain in joint involving ankle and foot, unspecified laterality [M25.579] Pes planus of both feet [M21.41, M21.42] Order(s):COMPOUNDED PRESCRIPTIONPowerstep gel insert (M77.41, M77.42) Metatarsalgia of both feet (primary encounter diagnosis) (M25.579) Pain in joint involving ankle and foot, unspecified laterality (M21.41, M21.42) Pes planus of both feetDisp: 1 DeviceRfl: 0 Prescriptions as of 03/07/2018 Sig: AMITRIPTYLINE 25 MG TABLET Take 1 tablet by mouth daily * TIZANIDINE 4 MG TABLET Take 1 tablet by mouth every * GABAPENTIN 600 MG TABLET Take 1 tablet by mouth four t* ESTRADIOL 0.01% (0.1 MG/GRAM)* Apply pea-sized amount to per* OMEPRAZOLE 20 MG CAPSULE,YANETH* Take 1 capsule by mouth twice* WARFARIN 5 MG TABLET Per cardiology Patient taking differently: Per cardiology: 4 mg 6 days a* METOPROLOL TARTRATE 100 MG TA* Take 100 mg by mouth once melanie* ISOSORBIDE MONONITRATE ER 120* Take 120 mg by mouth once melanie* LOSARTAN 50 MG TABLET Take 1 tablet by mouth once d* Patient taking differently: Take 100 mg by mouth once melanie* ONDANSETRON 4 MG DISINTEGRATI* Take 1 tablet by mouth every * NITROGLYCERIN 0.4 MG SUBLINGU* Dissolve 0.4 mg under the ton* WARFARIN 4 MG TABLET Per Cardiology: 4 mg 6 days * VITAMIN B-12 ORAL Take by mouth. * ROSUVASTATIN 40 MG TABLET Take 40 mg by mouth once alondra* * FUROSEMIDE 40 MG TABLET Take 40 mg by mouth once alondra* * ASPIRIN 81 MG TABLET Take 81 mg by mouth. * CALCIUM + D ORAL Take by mouth. COMPOUNDED PRESCRIPTION Powerstep gel insert (M77.41* Problem List As Of Date 03/07/2018 Noted Resolved Diaphragmatic hernia without mention of obstruc*INVALID FOR* Acute gastritis without mention of hemorrhage [*INVALID FOR* Dysphagia, unspecified [R13.10] INVALID FOR*11/23/2016 Knee pain [M25.569] INVALID FOR* History of DVT (deep vein thrombosis) [Z86.718] More... Coronary artery disease [I25.10] More... Peripheral neuropathy [G62.9] More... Diabetes mellitus, type 2 [E11.9] Hypertension [I10] Hyperlipidemia [E78.5] Depression [F32.9] Backache, unspecified [M54.9] Arthritis of knee [M17.10] INVALID FOR* Diabetic retinopathy, nonproliferative, moderat* Osteoporosis [M81.0] INVALID FOR* Lumbar radiculopathy [M54.16] INVALID FOR*12/19/2014 DDD (degenerative disc disease), lumbar [M51.36]INVALID FOR*12/19/2014 Lumbar spondylosis [M47.816] INVALID FOR*02/27/2015 Degeneration of lumbar or lumbosacral intervert*INVALID FOR* Lumbago [M54.5] INVALID FOR*12/19/2014 Hip pain [M25.559] INVALID FOR* Lumbosacral neuritis [M54.17] INVALID FOR* Low back pain [M54.5] INVALID FOR*02/27/2015 Enthesopathy of hip region [M76.899] INVALID FOR* Right-sided low back pain with right-sided scia*INVALID FOR* Osteoarthritis of spine with radiculopathy, lum*INVALID FOR* Oropharyngeal dysphagia [R13.12] INVALID FOR* Other instructions from your clinician: Powerstep Gel Comfort Max. Can get at [employer] here in [place], [employer] in [place] or [place]. Also can find in [employer]ash in [facility] or at [employer] in [place]. Powersteps can also be purchased online, starting around $25.00 If you have a metatarsal or dancer pad for your feet apply the pad directly to the insole so you can interchange between your shoes. Find a shoe with a removable insole and take this out and replace with your powerstep insole. Always bring powersteps with you when shopping for shoes so that you can make sure that everything fits well together Prescriptions ordered this encounter Disp Refills Start End COMPOUNDED PRESCRIPTION 1 De* 0 03/07/2018 Class: Print RX Sig: Powerstep gel insert (M77.41, M77.42) Metatarsalgia of both feet (primary encounter diagnosis) (M25.579) Pain in joint involving ankle and foot, unspecified laterality (M21.41, M21.42) Pes planus of both feet Follow-up and Disposition History Recorded Encounter Status:Closed by SURAJ ALEJO DPM on 03/07/18 PROGRESS Observed: 03/07/2018 Status: COMPLETED Source: [place] 10:31 AM [facility] REPOSITORY HNO ID: [id number] Author: Tomi Monzon (Tech) Service: (none) Author Type: Clip Loading Machine Adjuster Type: Progress Notes Filed: 03/07/2018 10:51 AM Note Text: Radiology Service Progress Note PATIENT NAME: Brittany Lorenzo DATE OF SERVICE: March 07, 2018 TIME: 10:31 AM PATIENT IDENTITY VERIFICATION COMPLETED USING TWO (2) METHODS: Patient confirmed name verbally and Date of . PATIENT GENDER DATA: Female. status: : No status: NO. PATIENT RELEVANT IMPLANT DATA REVIEWED: Not Applicable RADIOLOGY DEPARTMENT: General X-ray: Exam(s) Completed: Lower Extremity X-Ray(s): Feet, Bilateral and Wt. Bearing: PERIPHERAL IV DATA: Not applicable SIGNED BY: Tomi Chiu March 07, 2018 10:31 AM PROGRESS Observed: 03/04/2018 Status: COMPLETED Source: [place] 2:23 PM [facility] REPOSITORY HNO ID: [id number] Author: Osiel Flower Service: (none) Author Type: Physician Type: Progress Notes Filed: 03/04/2018 3:36 PM Note Text: Patient presents with: Chronic Pain HPI: Patient presents today for office visit for follow up. Nursing Notes: Alta Meyer Ma 03/04/2018 1:44 PM Signed CHRONIC PAIN: Pt having trouble controlling pain in feet, back of legs, and thumbs. Her right middle finger is getting stuck also. Is on neurontin for neuropathic pain. Has seen multiple pain management doctors. Dr. Encarnacion told her she was a candidate for surgery. Placed on on voltaren gel and a muscle relaxer. She does not want to go to surgery. She does not want to go back. Has seen spine surgeons. Has also seen spine center in [facility] as well. Requests opiates Explained risks and benefits of opiates and the fact that I do not currently feel comfortable prescribing chronic opiates. Discussed risks and benefits of elavil. Having trigger finger of right hand. MEDICATIONS: Current Outpatient Prescriptions: gabapentin (NEURONTIN) 600 mg tablet Take 1 tablet by mouth four times daily for 90 days. estradiol (ESTRACE) 0.01 % (0.1 mg/gram) vaginal cream Apply pea-sized amount to perineum and 1 applicator vaginally twice a week for atrophic vaginitis. omeprazole (PRILOSEC) 20 mg capsule Take 1 capsule by mouth twice daily. warfarin (COUMADIN) 5 mg tablet Per cardiology (Patient taking differently: Per cardiology: 4 mg 6 days a week and 2 mg once a week. ) metoprolol tartrate, short acting, (LOPRESSOR) 100 mg tablet Take 100 mg by mouth once daily. isosorbide mononitrate ER (IMDUR) 120 mg 24 hr tablet Take 120 mg by mouth once daily. losartan (COZAAR) 50 mg tablet Take 1 tablet by mouth once daily. (Patient taking differently: Take 100 mg by mouth once daily. ) ondansetron orally disintegrating (ZOFRAN ODT) 4 mg disintegrating tablet Take 1 tablet by mouth every 6 hours as needed for Nausea/Vomiting. nitroglycerin sublingual (NITROQUICK) 0.4 mg SL tablet Dissolve 0.4 mg under the tongue every 5 minutes as needed. Up to 3 max warfarin 4 mg tablet Per Cardiology: 4 mg 6 days a week and 2 mg once a week. CYANOCOBALAMIN, VITAMIN B-12, (VITAMIN B-12 ORAL) Take by mouth. rosuvastatin (CRESTOR) 40 mg tablet Take 40 mg by mouth once daily. furosemide (LASIX) 40 mg tablet Take 40 mg by mouth once daily. Aspirin 81 mg ORAL Tab Take 81 mg by mouth. CALCIUM CARBONATE/VITAMIN D3 (CALCIUM + D ORAL) Take by mouth. No current facility-administered medications for this visit. ALLERGIES: ALLERGIES Allergen Reactions - Wilda Inhibitors Cough WILDA cough - Doxycycline Swelling Tongue and feet - Keflex [Cephalexin] Vomiting - Penicillins Rash edema - Percocet [Oxycodone* GI Upset Patient has taken, needs to eat prior to taking. - Sulfa (Sulfonamide * Rash - Tetracycline Rash difficulty breathing PAST MEDICAL HISTORY Diagnosis Date - Backache, unspecified In pain management with Dr. Reyna - Cardiomyopathy ([facility]) - Compression fracture of L4 lumbar vertebra ([facility]) Dr. Polo prescribing pain meds - Coronary artery disease Dr Mendez; s/p CABG, no IA - Depression - Diabetes mellitus, type 2 (HCC) - Diabetic retinopathy, nonproliferative, moderate (HCC) - Hiatal hernia - History of DVT (deep vein thrombosis) cardiology manages, coumadin. after CABG(PE), (L leg) heart cath, and (R leg) knee surgery - Hyperlipidemia - Hypertension - Pain management Sees Dr. Reyna at [facility] for back - Peripheral neuropathy - Shortness of breath PAST SURGICAL HISTORY Procedure Laterality Date - APPENDECTOMY - BREAST BIOPSY left, aspiration and excision of cyst - COLONOSCOP W/ OR W/O [facility] SPEC 12 years ago Colonoscopy - COLONOSCOP W/ OR W/O [facility] SPEC 03/30/11 - EGD W/O [facility] SPECIMEN W/BX 03/30/11 - EGD W/O OR W/BRUSH/WASH 11/22/2013 EGD - EGD W/O OR W/BRUSH/WASH 04/24/2016 EGD - ESOPHAGEAL DILATATION 03/30/11 - HEART CATHETERIZATION - HEART SURGERY HX - LAPAROSCOPIC CHOLEYCYSTECTOMY 1997 Cholecystectomy, lap - PAST SURGICAL HISTORY OF 1958 bowel surgery, perforation - PAST SURGICAL HISTORY OF 2000 left knee laparthroscopy - PAST SURGICAL HISTORY OF 07/26/14 lumbar pain injections - REDUCTION OF LARGE BREAST 1995 - REPAIR HEART WND W CP BYPASS 2002 bypass x 6, Dr. Becerra/[facility] - TOTAL ABDOM HYSTERECTOMY 1990 TATIANA/BSO; benign menorrhagia, endometriosis - TOTAL KNEE REPLACEMENT Right 2007 right partial knee replacement/ Dr. Hussein FAMILY HISTORY Problem Relation Age of Onset - Heart Mother - Cancer Father of esophageal cancer Social History Marital status: Spouse name: Years of education: Number of children: 2 Occupational History Occupation Employer [employer] Social History Main Topics Smoking status: Never Smoker Smokeless tobacco: Never Used Alcohol use: No Drug use: No Sexual activity: No Reviewed current medications, allergies, past medical history, surgical history, family history and social history today. REVIEW OF SYSTEMS All other reviewed and negative other than HPI. HEALTH MAINTENANCE: Reviewed health maintenance issues today and recommended the following in detail. DTAP,TDAP,TD(1 - Tdap) due on 1957 VITALS: BP 126/68 Pulse 92 Resp 20 Wt 101.2 kg (223 lb) BMI 37.11 kg/m? Last 4 Encounter Wt Readings: Date: Wt: 03/04/2018 101.2 kg (223 lb) 02/21/2018 100.4 kg (221 lb 6.4 oz) 10/08/2017 101.2 kg (223 lb) 07/20/2017 102.5 kg (226 lb) PHYSICAL EXAMINATION: General appearance: Well appearing, alert, in no acute distress, well-hydrated, well nourished. Skin:no rashes. Head: Normocephalic, no masses, lesions, tenderness or abnormalities Lungs: Lungs clear to auscultation. No wheezing, rhonchi, rales Heart: RRR without murmur, gallop, or rubs. No ectopy Abdomen: Normal abdominal exam, Abdomen soft, non-tender. Bowel sounds normal. No masses, organomegaly Extremities: one plus edema. Normal monofilament. No deformity. ASSESSMENT/PLAN: 1. Trigger middle finger of right hand - ICD9: 727.03, ICD10: M65.331 (primary diagnosis) - CONSULT TO ORTHOPAEDICS 2. Foot pain, bilateral - ICD9: 729.5, ICD10: M79.671, M79.672 - Discussed risks and benefits of new medication with the patient. Advised them to call if any side effects or questions. - no opiates. - XR FOOT GENERAL 3V AP/LAT/OBL BILAT - CONSULT TO PODIATRY - AMITRIPTYLINE 25 MG TABLET 3. Myalgia - ICD9: 729.1, ICD10: M79.1 - Discussed risks and benefits of new medication with the patient. Advised them to call if any side effects or questions. - TIZANIDINE 4 MG TABLET Osiel Flower MD CNOV Observed: 03/04/2018 Status: COMPLETED Source: [place] 1:20 PM [facility] REPOSITORY Office Visit (FAMPWS) BRITTANY LORENZO ([id number]) 1940 F Date Time Provider Department 03/04/18 1:20 PM OSIEL FLOWER During your visit today, we recorded the following information about you: Pulse Respiration Blood pressure Weight 92/minute 20/minute 126/68 101.2 kg Alta Meyer Erlinda 03/04/2018 1:44 PM Signed CHRONIC PAIN: Pt having trouble controlling pain in feet, back of legs, and thumbs. Her right middle finger is getting stuck also. Osiel Flower MD 03/04/2018 3:36 PM Signed Patient presents with: Chronic Pain HPI: Patient presents today for office visit for follow up. Nursing Notes: Alta Meyer Erlinda 03/04/2018 1:44 PM Signed CHRONIC PAIN: Pt having trouble controlling pain in feet, back of legs, and thumbs. Her right middle finger is getting stuck also. Is on neurontin for neuropathic pain. Has seen multiple pain management doctors. Dr. Encarnacion told her she was a candidate for surgery. Placed on on voltaren gel and a muscle relaxer. She does not want to go to surgery. She does not want to go back. Has seen spine surgeons. Has also seen spine center in [facility] as well. Requests opiates Explained risks and benefits of opiates and the fact that I do not currently feel comfortable prescribing chronic opiates. Discussed risks and benefits of elavil. Having trigger finger of right hand. MEDICATIONS: Current Outpatient Prescriptions: gabapentin (NEURONTIN) 600 mg tablet Take 1 tablet by mouth four times daily for 90 days. estradiol (ESTRACE) 0.01 % (0.1 mg/gram) vaginal cream Apply pea-sized amount to perineum and 1 applicator vaginally twice a week for atrophic vaginitis. omeprazole (PRILOSEC) 20 mg capsule Take 1 capsule by mouth twice daily. warfarin (COUMADIN) 5 mg tablet Per cardiology (Patient taking differently: Per cardiology: 4 mg 6 days a week and 2 mg once a week. ) metoprolol tartrate, short acting, (LOPRESSOR) 100 mg tablet Take 100 mg by mouth once daily. isosorbide mononitrate ER (IMDUR) 120 mg 24 hr tablet Take 120 mg by mouth once daily. losartan (COZAAR) 50 mg tablet Take 1 tablet by mouth once daily. (Patient taking differently: Take 100 mg by mouth once daily. ) ondansetron orally disintegrating (ZOFRAN ODT) 4 mg disintegrating tablet Take 1 tablet by mouth every 6 hours as needed for Nausea/Vomiting. nitroglycerin sublingual (NITROQUICK) 0.4 mg SL tablet Dissolve 0.4 mg under the tongue every 5 minutes as needed. Up to 3 max warfarin 4 mg tablet Per Cardiology: 4 mg 6 days a week and 2 mg once a week. CYANOCOBALAMIN, VITAMIN B-12, (VITAMIN B-12 ORAL) Take by mouth. rosuvastatin (CRESTOR) 40 mg tablet Take 40 mg by mouth once daily. furosemide (LASIX) 40 mg tablet Take 40 mg by mouth once daily. Aspirin 81 mg ORAL Tab Take 81 mg by mouth. CALCIUM CARBONATE/VITAMIN D3 (CALCIUM + D ORAL) Take by mouth. No current facility-administered medications for this visit. ALLERGIES: ALLERGIES Allergen Reactions - Wilda Inhibitors Cough WILDA cough - Doxycycline Swelling Tongue and feet - Keflex [Cephalexin] Vomiting - Penicillins Rash edema - Percocet [Oxycodone* GI Upset Patient has taken, needs to eat prior to taking. - Sulfa (Sulfonamide * Rash - Tetracycline Rash difficulty breathing PAST MEDICAL HISTORY Diagnosis Date - Backache, unspecified In pain management with Dr. Reyna - Cardiomyopathy (HCC) - Compression fracture of L4 lumbar vertebra (HCC) Dr. Polo prescribing pain meds - Coronary artery disease Dr Mendez; s/p CABG, no IA - Depression - Diabetes mellitus, type 2 (HCC) - Diabetic retinopathy, nonproliferative, moderate (HCC) - Hiatal hernia - History of DVT (deep vein thrombosis) cardiology manages, coumadin. after CABG(PE), (L leg) heart cath, and (R leg) knee surgery - Hyperlipidemia - Hypertension - Pain management Sees Dr. Reyna at [facility] for back - Peripheral neuropathy - Shortness of breath PAST SURGICAL HISTORY Procedure Laterality Date - APPENDECTOMY - BREAST BIOPSY left, aspiration and excision of cyst - COLONOSCOP W/ OR W/O [facility] SPEC 12 years ago Colonoscopy - COLONOSCOP W/ OR W/O [facility] SPEC 03/30/11 - EGD W/O [facility] SPECIMEN W/BX 03/30/11 - EGD W/O OR W/BRUSH/WASH 11/22/2013 EGD - EGD W/O OR W/BRUSH/WASH 04/24/2016 EGD - ESOPHAGEAL DILATATION 03/30/11 - HEART CATHETERIZATION - HEART SURGERY HX - LAPAROSCOPIC CHOLEYCYSTECTOMY 1997 Cholecystectomy, lap - PAST SURGICAL HISTORY OF 1958 bowel surgery, perforation - PAST SURGICAL HISTORY OF 2000 left knee laparthroscopy - PAST SURGICAL HISTORY OF 07/26/14 lumbar pain injections - REDUCTION OF LARGE BREAST 1995 - REPAIR HEART WND W CP BYPASS 2003 bypass x 6, Dr. Becerra[facility] - TOTAL ABDOM HYSTERECTOMY 1990 [place]NA/BSO; benign menorrhagia, endometriosis - TOTAL KNEE REPLACEMENT Right 2007 right partial knee replacement/ Dr. Hussein FAMILY HISTORY Problem Relation Age of Onset - Heart Mother - Cancer Father of esophageal cancer Social History Marital status: Spouse name: Years of education: Number of children: 2 Occupational History Occupation Employer [employer] Social History Main Topics Smoking status: Never Smoker Smokeless tobacco: Never Used Alcohol use: No Drug use: No Sexual activity: No Reviewed current medications, allergies, past medical history, surgical history, family history and social history today. REVIEW OF SYSTEMS All other reviewed and negative other than HPI. HEALTH MAINTENANCE: Reviewed health maintenance issues today and recommended the following in detail. DTAP,TDAP,TD(1 - Tdap) due on 1957 VITALS: BP 126/68 Pulse 92 Resp 20 Wt 101.2 kg (223 lb) BMI 37.11 kg/m? Last 4 Encounter Wt Readings: Date: Wt: 03/04/2018 101.2 kg (223 lb) 02/21/2018 100.4 kg (221 lb 6.4 oz) 10/08/2017 101.2 kg (223 lb) 07/20/2017 102.5 kg (226 lb) PHYSICAL EXAMINATION: General appearance: Well appearing, alert, in no acute distress, well-hydrated, well nourished. Skin:no rashes. Head: Normocephalic, no masses, lesions, tenderness or abnormalities Lungs: Lungs clear to auscultation. No wheezing, rhonchi, rales Heart: RRR without murmur, gallop, or rubs. No ectopy Abdomen: Normal abdominal exam, Abdomen soft, non-tender. Bowel sounds normal. No masses, organomegaly Extremities: one plus edema. Normal monofilament. No deformity. ASSESSMENT/PLAN: 1. Trigger middle finger of right hand - ICD9: 727.03, ICD10: M65.331 (primary diagnosis) - CONSULT TO ORTHOPAEDICS 2. Foot pain, bilateral - ICD9: 729.5, ICD10: M79.671, M79.672 - Discussed risks and benefits of new medication with the patient. Advised them to call if any side effects or questions. - no opiates. - XR FOOT GENERAL 3V AP/LAT/OBL BILAT - CONSULT TO PODIATRY - AMITRIPTYLINE 25 MG TABLET 3. Myalgia - ICD9: 729.1, ICD10: M79.1 - Discussed risks and benefits of new medication with the patient. Advised them to call if any side effects or questions. - TIZANIDINE 4 MG TABLET Osiel Flower MD Referring Provider: SELF [[id number]] Allergies As of Date: 03/04/2018 Noted Allergy Reaction WILDA INHIBITORS 05/23/2014 3 - Cough Comments: WILDA cough DOXYCYCLINE 01/22/2012 7 - Swelling Comments: Tongue and feet KEFLEX (CEPHALEXIN) 07/16/2014 11 - Vomiting PENICILLINS 01/22/2011 2 - Rash Comments: edema PERCOCET (OXYCODONE-ACETAMINOPHEN)03/29/2013 8 - GI Upset Comments: Patient has taken, needs to eat prior to taking. SULFA (SULFONAMIDE ANTIBIOTICS) 01/22/2011 2 - Rash TETRACYCLINE 01/22/2011 2 - Rash Comments: difficulty breathing Date Reviewed: 03/04/2018 Reviewed by: Alta Meyer Ma - Fully Assessed Reason for Visit: Chronic Pain [1101] Primary Visit Diagnosis:Trigger middle finger of right hand [M65.331] Other Visit Diagnoses:Foot pain, bilateral [M79.671, M79.672] Myalgia [M79.1] Order(s):XR FOOT GENERAL 3V AP/LAT/OBL BILAT [7567128] Order #: [id number] FUTURE CONSULT TO PODIATRY [9034] Order #: [id number]: 1 CONSULT TO ORTHOPAEDICS [9034] Order #: [id number]: 1 amitriptyline (ELAVIL) 25 mg tabletTake 1 tablet by mouth daily at bedtime.Disp: 30 tabletRfl: 3 tiZANidine (ZANAFLEX) 4 mg tabletTake 1 tablet by mouth every 8 hours as needed.Disp: 20 tabletRfl: 0 Prescriptions as of 03/04/2018 Sig: GABAPENTIN 600 MG TABLET Take 1 tablet by mouth four t* ESTRADIOL 0.01% (0.1 MG/GRAM)* Apply pea-sized amount to per* OMEPRAZOLE 20 MG CAPSULE,YANETH* Take 1 capsule by mouth twice* WARFARIN 5 MG TABLET Per cardiology Patient taking differently: Per cardiology: 4 mg 6 days a* METOPROLOL TARTRATE 100 MG TA* Take 100 mg by mouth once melanie* ISOSORBIDE MONONITRATE ER 120* Take 120 mg by mouth once melanie* LOSARTAN 50 MG TABLET Take 1 tablet by mouth once d* Patient taking differently: Take 100 mg by mouth once melanie* ONDANSETRON 4 MG DISINTEGRATI* Take 1 tablet by mouth every * NITROGLYCERIN 0.4 MG SUBLINGU* Dissolve 0.4 mg under the ton* WARFARIN 4 MG TABLET Per Cardiology: 4 mg 6 days * VITAMIN B-12 ORAL Take by mouth. * ROSUVASTATIN 40 MG TABLET Take 40 mg by mouth once alondra* * FUROSEMIDE 40 MG TABLET Take 40 mg by mouth once alondra* * ASPIRIN 81 MG TABLET Take 81 mg by mouth. * CALCIUM + D ORAL Take by mouth. AMITRIPTYLINE 25 MG TABLET Take 1 tablet by mouth daily * TIZANIDINE 4 MG TABLET Take 1 tablet by mouth every * Problem List As Of Date 03/04/2018 Noted Resolved Diaphragmatic hernia without mention of obstruc*INVALID FOR* Acute gastritis without mention of hemorrhage [*INVALID FOR* Dysphagia, unspecified [R13.10] INVALID FOR*11/23/2016 Knee pain [M25.569] INVALID FOR* History of DVT (deep vein thrombosis) [Z86.718] More... Coronary artery disease [I25.10] More... Peripheral neuropathy [G62.9] More... Diabetes mellitus, type 2 [E11.9] Hypertension [I10] Hyperlipidemia [E78.5] Depression [F32.9] Backache, unspecified [M54.9] Arthritis of knee [M17.10] INVALID FOR* Diabetic retinopathy, nonproliferative, moderat* Osteoporosis [M81.0] INVALID FOR* Lumbar radiculopathy [M54.16] INVALID FOR*12/19/2014 DDD (degenerative disc disease), lumbar [M51.36]INVALID FOR*12/19/2014 Lumbar spondylosis [M47.816] INVALID FOR*02/27/2015 Degeneration of lumbar or lumbosacral intervert*INVALID FOR* Lumbago [M54.5] INVALID FOR*12/19/2014 Hip pain [M25.559] INVALID FOR* Lumbosacral neuritis [M54.17] INVALID FOR* Low back pain [M54.5] INVALID FOR*02/27/2015 Enthesopathy of hip region [M76.899] INVALID FOR* Right-sided low back pain with right-sided scia*INVALID FOR* Osteoarthritis of spine with radiculopathy, lum*INVALID FOR* Oropharyngeal dysphagia [R13.12] INVALID FOR* Visit Notes: >> Alta Meyer Ma WedMar 04, 2018 1:36 PM Status: Signed CHRONIC PAIN: Pt having trouble controlling pain in feet, back of legs, and thumbs. Her right middle finger is getting stuck also. Prescriptions ordered this encounter Disp Refills Start End AMITRIPTYLINE 25 MG TABLET 30 t* 3 03/04/2018 Route: ORAL Sig: Take 1 tablet by mouth daily at bedtime. TIZANIDINE 4 MG TABLET 20 t* 0 03/04/2018 Route: ORAL Sig: Take 1 tablet by mouth every 8 hours as needed. Medications Discontinued During This Encounter ciprofloxacin HCl (CIPRO) 250 mg tab* 03/04/2018 Class: Historical Med Route: ORAL Sig: Take 250 mg by mouth once daily. Disc: Course of therapy completed Encounter Status:Closed by OSIEL FLOWER MD on 03/04/18 CNCO Observed: 02/24/2018 Status: COMPLETED Source: [place] 12:00 AM [facility] [place] REPOSITORY Letter Text Rick Johnson PA-C [facility] Brittany Lorenzo [address] [address] Clinic #: [id number] 02/24/2018 Dear Ms. Lorenzo, I have received the results of your recent tests. The results of your lab tests were either normal or within the acceptable range. We can discuss this at your next visit. Please do not hesitate to contact me with any questions. Sincerely, Rick Johnson PA-C [facility] Department electronically signed to expedite mailing Observed: 02/22/2018 Status: F Source: [place] URINE CULTURE 4:00 PM [facility] [place] REPOSITORY Sp. Request/Comment: - Specimen received in preservative Culture Result - 50,000 - <100,000 CFU/ml Escherichia coli --> ABNORMAL ALERT ORGANISM: Escherichia coli METHOD: Minimum inhibitory concentration(Vitek) Antibiotic Interp DEMETRIUS Status Ampicillin SUSCEPTIBLE 4 F Gentamicin SUSCEPTIBLE <=1 F Trimeth sulfameth SUSCEPTIBLE <=20 F Cefazolin SUSCEPTIBLE <=4 F CLSI breakpoints for therapy of uncomplicated UTI's due to E.coli, K.pneumoniae, and P.mirabilis were applied and may be used to predict the activity of oral agents(cefaclor, cefdinir, cefpodoxime, cefp rozil, cefuroxime, cephalexin, loracarbef). Ciprofloxacin SUSCEPTIBLE <=0.25 F Nitrofurantoin SUSCEPTIBLE <=16 F Cefepime SUSCEPTIBLE <=1 F Piperacillin/Tazobac SUSCEPTIBLE <=4 F Ampicillin Sulbact SUSCEPTIBLE <=2 F Ceftriaxone SUSCEPTIBLE <=1 F Meropenem SUSCEPTIBLE <=0.25 F Ertapenem SUSCEPTIBLE <=0.5 F Performed By: #### URCUL #### [facility] [address] [place], [place] [address] COMP METABOLIC PANEL Collected: 02/22/2018 Status: F Source: [place] 12:03 PM [facility] [place] REPOSITORY TYPE CODE TESTS RESULT OUT OF REFERENCE UNITS RANGE LAB TP 6.3-8.0 g/dL Protein, Total 6.4 LAB ALB 3.9-4.9 g/dL Albumin 4.0 LAB CA 8.5-10.2 mg/dL Calcium, Total 8.9 LAB TBIL 0.2-1.3 mg/dL Bilirubin, Total 0.6 LAB ALKP 32-117 U/L Alkaline Phosphatase 58 LAB AST 13-35 U/L AST 24 LAB GLU 74-99 mg/dL Glucose High 131 Result Comment: The [place] Diabetes Association (ADA) provides guidance for cutoff values for fasting glucose and random glucose. The ADA defines fasting as no caloric intake for at least 8 hours. Fas ting plasma glucose results between 100 to 125 mg/dL indicate increased risk for diabetes (prediabetes). Fasting plasma glucose results greater than or equal to 126 mg/dL meet the criteria for diagnosis of diabetes. In the absence of unequivocal hyperglycemia, results should be confirmed by repeat testing. In a patient with classic symptoms of hyperglycemia or hyperglycemic crisis, random plasma glucose results greater than or equal to 200 mg/dL meet the criteria for diagnosis of diabetes. Reference: Standards of Medical Care in Diabetes 2016, [place] Diabetes Association. Diabetes Care. 2016.39(Suppl 1). LAB BUN 7-21 mg/dL BUN 18 LAB CRET 0.58-0.96 mg/dL Creatinine 0.95 LAB NA 136-144 mmol/L Sodium 139 LAB K 3.7-5.1 mmol/L Potassium 4.2 LAB CL 97-105 mmol/L Chloride 103 LAB CO2 22-30 mmol/L CO2 22 LAB AGAP 9-18 mmol/L Anion Gap 14 LAB ALT 7-38 U/L ALT 16 LAB GFRAA eGFR- Amer. >60 LAB GFRNAA . eGFR-All Other Races 57 Result Comment: eGFR (Estimated GFR) Units of measure: mL/min/1.73 meters squared eGFR is derived from the reexpressed MDRD Study equation using the following parameters: serum creatinine, age, gender and race. The creatinine assay has been calibrated to be traceable to IDMS. An eGFR <60 mL/min/1.73m2 for >3 months is consistent with chronic kidney disease. Refer to KDOQI guidelines for clinical interpretation. In patients with unstable renal function, e.g. those with acute kidney injury, the eGFR may not accurately reflect actual GFR. Performed By: #### CMP, LIPNF, HBA1C #### [facility] [address] [place] [id number] LIPID PANEL, NONFAST Collected: 02/22/2018 Status: F Source: [place] 12:03 PM [facility] [place] REPOSITORY TYPE CODE TESTS RESULT OUT OF REFERENCE UNITS RANGE LAB CHOLNF <200 mg/dL Total Cholesterol NF 151 Result Comment: <200 mg/dL, Desirable 200-239 mg/dL, Borderline high >239 mg/dL, High LAB TRIGNF <150 mg/dL Triglycerides, NF High 168 Result Comment: <150 mg/dL, Normal 150-199 mg/dL, Borderline high 200-499 mg/dL, High >499 mg/dL, Very high LAB HDLNF >39 mg/dL HDL Cholesterol, NF 47 Result Comment: 40-59 mg/dL, Acceptable >59 mg/dL, High: Negative risk factor for coronary heart disease <40 mg/dL, Low: Positive risk factor for coronary heart disease LAB LDLNF <100 mg/dL LDL Cholesterol, NF 70 Result Comment: <100 mg/dL, Optimal 100-129 mg/dL, Near optimal/above optimal 130-159 mg/dL, Borderline high 160-189 mg/dL, High >189 mg/dL, Very high Secondary prevention optimal LDL Cholesterol levels are recommended to be < 70 mg/dL LAB NOHDLN <130 mg/dL Non HDL Chol, 104 NF Result Comment: <130 mg/dL, Optimal 130-159 mg/dL, Near optimal/above optimal 160-189 mg/dL, Borderline high 190-219 mg/dL, High >219 mg/dL, Very high Secondary prevention optimal non HDL Cholesterol levels are recommended to be < 100 mg/dL LAB VLDLNF <30 mg/dL VLDL Cholesterol, High NF 34 LAB TCHDLN <5.10 mg/dL T Chol/HDL Ratio NF 3.21 LAB LDLHDN <2.54 mg/dL LDL/HDL Ratio, NF 1.49 Result Comment: Reference: 1. National Cholesterol Education Program ATP III Guideline At-A-Glance Quick Desk Reference: National Heart, Lung, and Blood [place]. National Institutes of Health. 2001: NIH Publication No. 01-3305. 2. An International Atherosclerosis Society position paper: global recommendations for the management of dyslipidemia: executive summary, Atherosclerosis. 2014: 232(2):410-413. Performed By: #### CMP, LIPNF, HBA1C #### [facility] [address], [place] [address] HEMOGLOBIN A1C Collected: 02/22/2018 Status: F Source: [place] 12:03 PM [facility] REPOSITORY TYPE CODE TESTS RESULT OUT OF REFERENCE UNITS RANGE LAB HGBA1C 4.3-5.6 % High Hemoglobin A1c 6.7 LAB HBA0 mg/dL Est. Average Glucose 146 Result Comment: eAG: (Estimated average glucose) is a calculated value from HgbA1c and is associate sales representative of the average blood glucose level in the last 2-3 month period. Performed By: #### CMP, LIPNF, HBA1C #### [facility] [address], [place] [address] CNCO Observed: 02/22/2018 Status: COMPLETED Source: [place] 12:00 AM [facility] REPOSITORY Letter Text . [facility] AUTHORIZATION FOR THE RELEASE OF MEDICAL INFORMATION FROM OTHER HEALTHCARE FACILITIES [facility] [address] [place], [place] [address] Name: Brittany Lorenzo Date of : 1940 [address] [place] [address] (home) Reason for Disclosure: Continuity of Care. Release Information From: Name of Provider/Facility: Dr. Amreica Hensley Street: City: State: Zip: Fax: ___[phone] Phone: Release Information To: Office Receiving: Magdalene Johnson PA-C PLEASE FAX TO: [phone] I hereby authorize to release the health information indicated below that is contained in my patient records to the Recipient named above. I understand and acknowledge that this may include treatment for physical and mental illness, alcohol/drug abuse and or HIV/AIDS test results or diagnosis. This authorization does not include permission to release outpatient Psychotherapy Notes* as defined below. The release of Psychotherapy Notes requires a separate authorization. REPORTS REQUESTED: Diabetes Reports: Last Eye Exam This consent is subject to revocation at any time except to the extent the action has been taken thereon. This authorization and consent will in one year from the date of authorization written below. Your health care (or payment for care) will not be affected by whether or not you sign this authorization. Once your health care information is released, re-disclosure of your health care information by the Recipient my no longer be protected by law. Signature of Patient/Legal Guardian Printed Name Date Signed: ____/ / Relationship if not Patient If other than patient?s signature, a copy of the legal papers verifying authority (e.g. Power of Bridge Ironworker or Certificate) MUST accompany the authorization when presented. Exception: parent if signing for patient under age 18. *Psychotherapy Notes defined as notes that document private, joint, group or family counseling sessions that are from the rest of a patient?s medical record. PROTHROMBIN TIME W/INR Collected: 02/21/2018 Status: F Source: [place] 2:01 PM [facility] REPOSITORY TYPE CODE TESTS RESULT OUT OF RANGE REFERENCE UNITS LAB L300.4150 11.7-14.9 SECONDS High PROTIME 19.9 LAB L300.4200 Normal INR 1.7 Performed By: #### L300.3900 #### [facility] [address] [place], [address] PROGRESS Observed: 02/21/2018 Status: COMPLETED Source: [place] 12:31 PM [facility] [place] REPOSITORY HNO ID: [id number] Author: Magdalene Johnson Service: (none) Author Type: Physician Yoker Machine Operator Type: Progress Notes Filed: 02/22/2018 6:44 AM Note Text: 77 year old female with c/o 1. Yeast; itching, burning,. No discharge. Occurs intermittently. Longer than 3 weeks. Was on Diflucan without change. S/p hysterectomy 2. Blood sugars running 108 am,120-130 pm. Off medication. manages with diet control. + retinopathy, macular degeneration. Follows with Rogelio Hensley. Last record 05/10/15 indicates no retinopathy. Has been in since: need records. Last 2 Encounter Wt Readings: Date: Wt: 02/21/2018 100.4 kg (221 lb 6.4 oz) 10/08/2017 101.2 kg (223 lb) Hemoglobin A1C (%) Date Value 07/20/2017 6.5 11/18/2016 6.9 ) 3. HTN controlled. Taking medications as directed, light headed on getting up, has to hold on to a chair for a few seocnds. 4. Feet feel swollen, hurt across top. Identifies neuropathy. Told from EMG per neuro Dr. Sims. No records. 5. Ischemic cardiomyopathy, S/CABG. Last stress 2016 EF 37%. Follows with [facility]. No chest pain. No energy. SOB with exertion but doesn't exert much. Chronic pain issues. 6. Depression: mood is positive. On no meds. Feels she is fine. HISTORIES FAMILY HISTORY Problem Relation Age of Onset - Heart Mother - Cancer Father of esophageal cancer PAST MEDICAL HISTORY Diagnosis Date - Backache, unspecified In pain management with Dr. Reyna - Cardiomyopathy (HCC) - Compression fracture of L4 lumbar vertebra (HCC) Dr. Polo prescribing pain meds - Coronary artery disease Dr Mendez; s/p CABG, no IA - Depression - Diabetes mellitus, type 2 (HCC) - Diabetic retinopathy, nonproliferative, moderate (HCC) - Hiatal hernia - History of DVT (deep vein thrombosis) cardiology manages, coumadin. after CABG(PE), (L leg) heart cath, and (R leg) knee surgery - Hyperlipidemia - Hypertension - Pain management Sees Dr. Reyna at [facility] for back - Peripheral neuropathy - Shortness of breath PAST SURGICAL HISTORY Procedure Laterality Date - APPENDECTOMY - BREAST BIOPSY left, aspiration and excision of cyst - COLONOSCOP W/ OR W/O [facility] SPEC 12 years ago Colonoscopy - COLONOSCOP W/ OR W/O [facility] SPEC 03/30/11 - EGD W/O BRSH SPECIMEN W/BX 03/30/11 - EGD W/O OR W/BRUSH/WASH 11/22/2013 EGD - EGD W/O OR W/BRUSH/WASH 04/24/2016 EGD - ESOPHAGEAL DILATATION 03/30/11 - HEART CATHETERIZATION - HEART SURGERY HX - LAPAROSCOPIC CHOLEYCYSTECTOMY 1997 Cholecystectomy, lap - PAST SURGICAL HISTORY OF 1958 bowel surgery, perforation - PAST SURGICAL HISTORY OF 2000 left knee laparthroscopy - PAST SURGICAL HISTORY OF 07/26/14 lumbar pain injections - REDUCTION OF LARGE BREAST 1995 - REPAIR HEART WND W CP BYPASS 2003 bypass x 6, Dr. Becerra/[facility] - TOTAL ABDOM HYSTERECTOMY 1990 TATIANA/BSO; benign menorrhagia, endometriosis - TOTAL KNEE REPLACEMENT Right 2007 right partial knee replacement/ Dr. 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 Social History Main Topics Smoking status: Never Smoker Smokeless tobacco: Never Used Alcohol use: No Drug use: No Sexual activity: No ACTIVE PROBLEM LIST Diaphragmatic Hernia Without Mention of Obstruction Or Gangrene Acute Gastritis Without Mention of Hemorrhage Knee Pain History of Dvt (Deep Vein Thrombosis) Coronary Artery Disease Peripheral Neuropathy Diabetes Mellitus, Type 2 (Hcc) Hypertension Hyperlipidemia Depression Backache, Unspecified Arthritis of Knee Diabetic Retinopathy, Nonproliferative, Moderate (Hcc) Osteoporosis Degeneration of Lumbar Or Lumbosacral Intervertebral Disc Hip Pain Lumbosacral Neuritis Enthesopathy of Hip Region Right-Sided Low Back Pain With Right-Sided Sciatica Osteoarthritis of Spine With Radiculopathy, Lumbar Region Oropharyngeal Dysphagia Current Outpatient Prescriptions: omeprazole (PRILOSEC) 20 mg capsule Take 1 capsule by mouth twice daily. Disp: 60 capsule Rfl: 11 warfarin (COUMADIN) 5 mg tablet Per cardiology Disp: Rfl: metoprolol tartrate, short acting, (LOPRESSOR) 100 mg tablet Take 100 mg by mouth once daily. Disp: Rfl: isosorbide mononitrate ER (IMDUR) 120 mg 24 hr tablet Take 120 mg by mouth once daily. Disp: Rfl: losartan (COZAAR) 50 mg tablet Take 1 tablet by mouth once daily. (Patient taking differently: Take 100 mg by mouth once daily. ) Disp: 90 tablet Rfl: 0 ondansetron orally disintegrating (ZOFRAN ODT) 4 mg disintegrating tablet Take 1 tablet by mouth every 6 hours as needed for Nausea/Vomiting. Disp: 20 tablet Rfl: 0 nitroglycerin sublingual (NITROQUICK) 0.4 mg SL tablet Dissolve 0.4 mg under the tongue every 5 minutes as needed. Up to 3 max Disp: Rfl: warfarin 4 mg tablet Take 4 1/2 mg by mouth daily Disp: Rfl: 0 CYANOCOBALAMIN, VITAMIN B-12, (VITAMIN B-12 ORAL) Take by mouth. Disp: Rfl: rosuvastatin (CRESTOR) 40 mg tablet Take 40 mg by mouth once daily. Disp: Rfl: furosemide (LASIX) 40 mg tablet Take 40 mg by mouth once daily. Disp: Rfl: Aspirin 81 mg ORAL Tab Take 81 mg by mouth. Disp: Rfl: CALCIUM CARBONATE/VITAMIN D3 (CALCIUM + D ORAL) Take by mouth. Disp: Rfl: gabapentin (NEURONTIN) 600 mg tablet Take 1 tablet by mouth four times daily for 90 days. Disp: 120 tablet Rfl: 5 cyclobenzaprine (FLEXERIL) 10 mg tablet Take 1 tablet by mouth three times daily as needed. (Patient not taking: Reported on 02/21/2018 ) Disp: 20 tablet Rfl: 0 ciprofloxacin HCl (CIPRO) 250 mg tablet Take 250 mg by mouth once daily. Disp: Rfl: No current facility-administered medications for this visit. DTAP,TDAP,TD(1 - Tdap) due on 1957 ZOSTER VACCINE (SHINGRIX)(2 of 3) due on 02/20/2016 LDL due on 09/21/2017 DIABETIC FOOT EXAM due on 11/23/2017 HBA1C due on 01/18/2018 EXAM: BP 118/60 Pulse 72 Temp 36.1 ?C (96.9 ?F) (Tympanic) Resp 12 Wt 100.4 kg (221 lb 6.4 oz) BMI 36.84 kg/m? Pleasant morbidly obese woman in no acute distress. Alert and oriented all spheres. Normal affect and cognition. Speech normal. No deficits to learning or comprehension. Skin warm, dry, pink to lips and nailbeds. Normal turgor. Respirations regular and unlabored. HEENT WNL. TM's clear. Nose and oropharynx free from injection or lesion. No cervical lymph nodes. Thyroid non-tender, no masses Chest CTA. HRRR without murmur or gallop. Abdomen: active bowel sounds throughout, soft, nontender, no masses or organomegaly. No CVAT. Extrem: no clubbing, cyanosis, edema. Extremities are warm and pink with prompt capillary refill. Feet:Shoes and socks removed, normal distal pulses, sensitive to 10 gm monofilament, vibratory perception normal and calluses bottom of foot. Moderate pes planus. Feet demonstrate no erythema, deformity.shows are tight leaving imprint across top of foot. Chaperoned exam: external genitalia: moderate vaginal atrophy with diffuse erythema. No vaginal discharge. No lesions. ASSESSMENT/PLAN: 1. Coronary artery disease involving [place] heart without angina pectoris, unspecified vessel or lesion type - ICD9: 414.01, ICD10: I25.10 (primary diagnosis) aymptomatic. Follows with Dr. Patricia. S/p CABG. 2. Other polyneuropathy - ICD9: 357.89, ICD10: G62.89 Patient has no clinical evidence. States saw pain management Dr. Sims, had EMG which demonstrated. See if we can get records. 3. Type 2 diabetes mellitus with complication, without long- term current use of insulin (HCC) - ICD9: 250.90, ICD10: E11.8 Controlled. Currently on no medication. Home sugars stable; check labs - HGB A1C - COMP METABOLIC PANEL 4. Essential hypertension - ICD9: 401.9, ICD10: I10 - good control - Continue current medication(s) - Recommended regular aerobic exercise. - Recommend home blood pressure monitoring, to bring results in on next visit - Goal of BP <130/80 - COMP METABOLIC PANEL 5. Hyperlipidemia, unspecified hyperlipidemia type - ICD9: 272.4, ICD10: E78.5 - good control - Continue current medication. - LIPID PANEL, NONFASTING 6. Dysuria - ICD9: 788.1, ICD10: R30.0 acute - Patient education for prevention given: PUSH FLUIDS. Report if fever, nausea or vomiting. - UA DIP B/O - URINE CULTURE 7. Atrophic vaginitis - ICD9: 627.3, ICD10: N95.2 S/P TATIANA, BSO - ESTRADIOL 0.01% (0.1 MG/GRAM) VAGINAL CREAM: daily x 1 week to reduce irritation then twice a week for maitenance F/u 3 months, prefers open access Magdalene Johnson PA-C CNOV Observed: 02/21/2018 Status: COMPLETED Source: [place] 12:20 PM [facility] REPOSITORY Office Visit (FAMPWS) BJBRITTANY CHILDS ([id number]) 1940 F Date Time Provider Department 02/21/18 12:20 PM Magdalene JOHNSON) FAMPWS During your visit today, we recorded the following information about you: Temperature Pulse Respiration Blood pressure 96.9 degrees 72/minute 12/minute 118/60 Weight 100.4 kg Magdalene Johnson PA-C 02/22/2018 6:44 AM Addendum 77 year old female with c/o 1. Yeast; itching, burning,. No discharge. Occurs intermittently. Longer than 3 weeks. Was on Diflucan without change. S/p hysterectomy 2. Blood sugars running 108 am,120-130 pm. Off medication. manages with diet control. + retinopathy, macular degeneration. Follows with Rogelio Hensley. Last record 05/10/15 indicates no retinopathy. Has been in since: need records. Last 2 Encounter Wt Readings: Date: Wt: 02/21/2018 100.4 kg (221 lb 6.4 oz) 10/08/2017 101.2 kg (223 lb) Hemoglobin A1C (%) Date Value 07/20/2017 6.5 11/18/2016 6.9 ) 3. HTN controlled. Taking medications as directed, light headed on getting up, has to hold on to a chair for a few seocnds. 4. Feet feel swollen, hurt across top. Identifies neuropathy. Told from EMG per neuro Dr. Sims. No records. 5. Ischemic cardiomyopathy, S/CABG. Last stress 2016 EF 37%. Follows with [facility]. No chest pain. No energy. SOB with exertion but doesn't exert much. Chronic pain issues. 6. Depression: mood is positive. On no meds. Feels she is fine. HISTORIES FAMILY HISTORY Problem Relation Age of Onset - Heart Mother - Cancer Father of esophageal cancer PAST MEDICAL HISTORY Diagnosis Date - Backache, unspecified In pain management with Dr. Reyna - Cardiomyopathy (HCC) - Compression fracture of L4 lumbar vertebra (HCC) Dr. Polo prescribing pain meds - Coronary artery disease Dr Mendez; s/p CABG, no IA - Depression - Diabetes mellitus, type 2 (HCC) - Diabetic retinopathy, nonproliferative, moderate (HCC) - Hiatal hernia - History of DVT (deep vein thrombosis) cardiology manages, coumadin. after CABG(PE), (L leg) heart cath, and (R leg) knee surgery - Hyperlipidemia - Hypertension - Pain management Sees Dr. Reyna at [facility] for back - Peripheral neuropathy - Shortness of breath PAST SURGICAL HISTORY Procedure Laterality Date - APPENDECTOMY - BREAST BIOPSY left, aspiration and excision of cyst - COLONOSCOP W/ OR W/O [facility] SPEC 12 years ago Colonoscopy - COLONOSCOP W/ OR W/O [facility] SPEC 03/30/11 - EGD W/O [facility] SPECIMEN W/BX 03/30/11 - EGD W/O OR W/BRUSH/WASH 11/22/2013 EGD - EGD W/O OR W/BRUSH/WASH 04/24/2016 EGD - ESOPHAGEAL DILATATION 03/30/11 - HEART CATHETERIZATION - HEART SURGERY HX - LAPAROSCOPIC CHOLEYCYSTECTOMY 1997 Cholecystectomy, lap - PAST SURGICAL HISTORY OF 1958 bowel surgery, perforation - PAST SURGICAL HISTORY OF 2000 left knee laparthroscopy - PAST SURGICAL HISTORY OF 07/26/14 lumbar pain injections - REDUCTION OF LARGE BREAST 1995 - REPAIR HEART WND W CP BYPASS 2003 bypass x 6, Dr. Becerra/[facility] - TOTAL ABDOM HYSTERECTOMY 1990 TATIANA/BSO; benign menorrhagia, endometriosis - TOTAL KNEE REPLACEMENT Right 2007 right partial knee replacement/ Dr. 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 Social History Main Topics Smoking status: Never Smoker Smokeless tobacco: Never Used Alcohol use: No Drug use: No Sexual activity: No ACTIVE PROBLEM LIST Diaphragmatic Hernia Without Mention of Obstruction Or Gangrene Acute Gastritis Without Mention of Hemorrhage Knee Pain History of Dvt (Deep Vein Thrombosis) Coronary Artery Disease Peripheral Neuropathy Diabetes Mellitus, Type 2 (Hcc) Hypertension Hyperlipidemia Depression Backache, Unspecified Arthritis of Knee Diabetic Retinopathy, Nonproliferative, Moderate (Hcc) Osteoporosis Degeneration of Lumbar Or Lumbosacral Intervertebral Disc Hip Pain Lumbosacral Neuritis Enthesopathy of Hip Region Right-Sided Low Back Pain With Right-Sided Sciatica Osteoarthritis of Spine With Radiculopathy, Lumbar Region Oropharyngeal Dysphagia Current Outpatient Prescriptions: omeprazole (PRILOSEC) 20 mg capsule Take 1 capsule by mouth twice daily. Disp: 60 capsule Rfl: 11 warfarin (COUMADIN) 5 mg tablet Per cardiology Disp: Rfl: metoprolol tartrate, short acting, (LOPRESSOR) 100 mg tablet Take 100 mg by mouth once daily. Disp: Rfl: isosorbide mononitrate ER (IMDUR) 120 mg 24 hr tablet Take 120 mg by mouth once daily. Disp: Rfl: losartan (COZAAR) 50 mg tablet Take 1 tablet by mouth once daily. (Patient taking differently: Take 100 mg by mouth once daily. ) Disp: 90 tablet Rfl: 0 ondansetron orally disintegrating (ZOFRAN ODT) 4 mg disintegrating tablet Take 1 tablet by mouth every 6 hours as needed for Nausea/Vomiting. Disp: 20 tablet Rfl: 0 nitroglycerin sublingual (NITROQUICK) 0.4 mg SL tablet Dissolve 0.4 mg under the tongue every 5 minutes as needed. Up to 3 max Disp: Rfl: warfarin 4 mg tablet Take 4 1/2 mg by mouth daily Disp: Rfl: 0 CYANOCOBALAMIN, VITAMIN B-12, (VITAMIN B-12 ORAL) Take by mouth. Disp: Rfl: rosuvastatin (CRESTOR) 40 mg tablet Take 40 mg by mouth once daily. Disp: Rfl: furosemide (LASIX) 40 mg tablet Take 40 mg by mouth once daily. Disp: Rfl: Aspirin 81 mg ORAL Tab Take 81 mg by mouth. Disp: Rfl: CALCIUM CARBONATE/VITAMIN D3 (CALCIUM + D ORAL) Take by mouth. Disp: Rfl: gabapentin (NEURONTIN) 600 mg tablet Take 1 tablet by mouth four times daily for 90 days. Disp: 120 tablet Rfl: 5 cyclobenzaprine (FLEXERIL) 10 mg tablet Take 1 tablet by mouth three times daily as needed. (Patient not taking: Reported on 02/21/2018 ) Disp: 20 tablet Rfl: 0 ciprofloxacin HCl (CIPRO) 250 mg tablet Take 250 mg by mouth once daily. Disp: Rfl: No current facility-administered medications for this visit. DTAP,TDAP,TD(1 - Tdap) due on 1957 ZOSTER VACCINE (SHINGRIX)(2 of 3) due on 02/20/2016 LDL due on 09/21/2017 DIABETIC FOOT EXAM due on 11/23/2017 HBA1C due on 01/18/2018 EXAM: BP 118/60 Pulse 72 Temp 36.1 ?C (96.9 ?F) (Tympanic) Resp 12 Wt 100.4 kg (221 lb 6.4 oz) BMI 36.84 kg/m? Pleasant morbidly obese woman in no acute distress. Alert and oriented all spheres. Normal affect and cognition. Speech normal. No deficits to learning or comprehension. Skin warm, dry, pink to lips and nailbeds. Normal turgor. Respirations regular and unlabored. HEENT WNL. TM's clear. Nose and oropharynx free from injection or lesion. No cervical lymph nodes. Thyroid non-tender, no masses Chest CTA. HRRR without murmur or gallop. Abdomen: active bowel sounds throughout, soft, nontender, no masses or organomegaly. No CVAT. Extrem: no clubbing, cyanosis, edema. Extremities are warm and pink with prompt capillary refill. Feet:Shoes and socks removed, normal distal pulses, sensitive to 10 gm monofilament, vibratory perception normal and calluses bottom of foot. Moderate pes planus. Feet demonstrate no erythema, deformity.shows are tight leaving imprint across top of foot. Chaperoned exam: external genitalia: moderate vaginal atrophy with diffuse erythema. No vaginal discharge. No lesions. ASSESSMENT/PLAN: 1. Coronary artery disease involving capitan grande band heart without angina pectoris, unspecified vessel or lesion type - ICD9: 414.01, ICD10: I25.10 (primary diagnosis) aymptomatic. Follows with Dr. Patricia. S/p CABG. 2. Other polyneuropathy - ICD9: 357.89, ICD10: G62.89 Patient has no clinical evidence. States saw pain management Dr. Sims, had EMG which demonstrated. See if we can get records. 3. Type 2 diabetes mellitus with complication, without long- term current use of insulin (HCC) - ICD9: 250.90, ICD10: E11.8 Controlled. Currently on no medication. Home sugars stable; check labs - HGB A1C - COMP METABOLIC PANEL 4. Essential hypertension - ICD9: 401.9, ICD10: I10 - good control - Continue current medication(s) - Recommended regular aerobic exercise. - Recommend home blood pressure monitoring, to bring results in on next visit - Goal of BP <130/80 - COMP METABOLIC PANEL 5. Hyperlipidemia, unspecified hyperlipidemia type - ICD9: 272.4, ICD10: E78.5 - good control - Continue current medication. - LIPID PANEL, NONFASTING 6. Dysuria - ICD9: 788.1, ICD10: R30.0 acute - Patient education for prevention given: PUSH FLUIDS. Report if fever, nausea or vomiting. - UA DIP B/O - URINE CULTURE 7. Atrophic vaginitis - ICD9: 627.3, ICD10: N95.2 S/P TATIANA, BSO - ESTRADIOL 0.01% (0.1 MG/GRAM) VAGINAL CREAM: daily x 1 week to reduce irritation then twice a week for maiteisabel F/u 3 months, prefers open access M Colin Johnson PA-C Referring Provider: SELF [200] Allergies As of Date: 02/21/2018 Noted Allergy Reaction WILDA INHIBITORS 05/23/2014 3 - Cough Comments: WILDA cough DOXYCYCLINE 01/22/2012 7 - Swelling Comments: Tongue and feet KEFLEX (CEPHALEXIN) 07/16/2014 11 - Vomiting PENICILLINS 01/22/2011 2 - Rash Comments: edema PERCOCET (OXYCODONE-ACETAMINOPHEN)03/29/2013 8 - GI Upset Comments: Patient has taken, needs to eat prior to taking. SULFA (SULFONAMIDE ANTIBIOTICS) 01/22/2011 2 - Rash TETRACYCLINE 01/22/2011 2 - Rash Comments: difficulty breathing Date Reviewed: 02/21/2018 Reviewed by: Shira Neumann LPN - Fully Assessed Reason for Visit: F/U 6 months [1177] Cmt: swelling in bilateral feet Vaginal Problem [117] Cmt: seen at [facility] 02/11/18 for same given 3 diflucan.Had been treated with Flagy sometime ago for about the same symptoms which did help Reason For Visit History Recorded Primary Visit Diagnosis:Coronary artery disease involving capitan grande band heart without angina pectoris, unspecified vessel or lesion type [I25.10] Other Visit Diagnoses:Other polyneuropathy [G62.89] Type 2 diabetes mellitus with complication, without long-term current use of insulin (HCC) [E11.8] Essential hypertension [I10] Hyperlipidemia, unspecified hyperlipidemia type [E78.5] Dysuria [R30.0] Atrophic vaginitis [N95.2] 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 2 diabetes mellitus, macular edema presence unspecified, unspecified laterality ([facility]) [E11.3399] Order(s):HGB A1C [ROLSN0L] Order #: [id number] FUTURE COMP METABOLIC PANEL [SQCMP] Order #: [id number] FUTURE LIPID PANEL, NONFASTING [SQLIPNF] Order #: [id number] FUTURE gabapentin (NEURONTIN) 600 mg tabletTake 1 tablet by mouth four times daily for 90 days.Disp: 120 tabletRfl: 5 estradiol (ESTRACE) 0.01 % (0.1 mg/gram) vaginal creamApply pea-sized amount to perineum and 1 applicator vaginally twice a week for atrophic vaginitis.Disp: 30 gRfl: 5 UA DIP B/O [6117831] Order #: [id number] URINE CULTURE [SQURCUL] Order #: [id number] Prescriptions as of 02/21/2018 Sig: OMEPRAZOLE 20 MG CAPSULE,YANETH* Take 1 capsule by mouth twice* WARFARIN 5 MG TABLET Per cardiology METOPROLOL TARTRATE 100 MG TA* Take 100 mg by mouth once melanie* ISOSORBIDE MONONITRATE ER 120* Take 120 mg by mouth once melanie* LOSARTAN 50 MG TABLET Take 1 tablet by mouth once d* Patient taking differently: Take 100 mg by mouth once melanie* ONDANSETRON 4 MG DISINTEGRATI* Take 1 tablet by mouth every * NITROGLYCERIN 0.4 MG SUBLINGU* Dissolve 0.4 mg under the ton* WARFARIN 4 MG TABLET Take 4 1/2 mg by mouth daily VITAMIN B-12 ORAL Take by mouth. * ROSUVASTATIN 40 MG TABLET Take 40 mg by mouth once alondra* * FUROSEMIDE 40 MG TABLET Take 40 mg by mouth once alondra* * ASPIRIN 81 MG TABLET Take 81 mg by mouth. * CALCIUM + D ORAL Take by mouth. GABAPENTIN 600 MG TABLET Take 1 tablet by mouth four t* ESTRADIOL 0.01% (0.1 MG/GRAM)* Apply pea-sized amount to per* CIPROFLOXACIN 250 MG TABLET Take 250 mg by mouth once melanie* Problem List As Of Date 02/21/2018 Noted Resolved Diaphragmatic hernia without mention of obstruc*INVALID FOR* Acute gastritis without mention of hemorrhage [*INVALID FOR* Dysphagia, unspecified [R13.10] INVALID FOR*11/23/2016 Knee pain [M25.569] INVALID FOR* History of DVT (deep vein thrombosis) [Z86.718] More... Coronary artery disease [I25.10] More... Peripheral neuropathy [G62.9] More... Diabetes mellitus, type 2 [E11.9] Hypertension [I10] Hyperlipidemia [E78.5] Depression [F32.9] Backache, unspecified [M54.9] Arthritis of knee [M17.10] INVALID FOR* Diabetic retinopathy, nonproliferative, moderat* Osteoporosis [M81.0] INVALID FOR* Lumbar radiculopathy [M54.16] INVALID FOR*12/19/2014 DDD (degenerative disc disease), lumbar [M51.36]INVALID FOR*12/19/2014 Lumbar spondylosis [M47.816] INVALID FOR*02/27/2015 Degeneration of lumbar or lumbosacral intervert*INVALID FOR* Lumbago [M54.5] INVALID FOR*12/19/2014 Hip pain [M25.559] INVALID FOR* Lumbosacral neuritis [M54.17] INVALID FOR* Low back pain [M54.5] INVALID FOR*02/27/2015 Enthesopathy of hip region [M76.899] INVALID FOR* Right-sided low back pain with right-sided scia*INVALID FOR* Osteoarthritis of spine with radiculopathy, lum*INVALID FOR* Oropharyngeal dysphagia [R13.12] INVALID FOR* Prescriptions ordered this encounter Disp Refills Start End GABAPENTIN 600 MG TABLET 120 * 5 02/21/2018 05/22/2018 Route: ORAL Sig: Take 1 tablet by mouth four times daily for 90 days. ESTRADIOL 0.01% (0.1 MG/GRAM) VAGINA* 30 g 5 02/21/2018 Sig: Apply pea-sized amount to perineum and 1 applicator vaginally twice a week for atrophic vaginitis. Medications Discontinued During This Encounter cyclobenzaprine (FLEXERIL) 10 mg tab* 20 t* 0 10/08/2017 02/21/2018 Route: ORAL Sig: Take 1 tablet by mouth three times daily as needed. Patient not taking: Reported on 02/21/2018 Disc: Reason for discontinue is not on file. gabapentin (NEURONTIN) 600 mg tablet 120 * 5 11/11/2017 02/21/2018 Route: ORAL Sig: Take 1 tablet by mouth four times daily for 90 days. Disc: Reason for discontinue is not on file. Disposition: Return in about 3 months (around 05/24/2018). Follow-up and Disposition History Recorded Encounter Status:Closed by Magdalene JOHNSON PA-C on 02/22/18 PROTHROMBIN TIME W/INR Collected: 02/18/2018 Status: F Source: [place] 2:42 PM [facility] REPOSITORY TYPE CODE TESTS RESULT OUT OF REFERENCE UNITS RANGE LAB L300.4150 11.7-14.9 SECONDS High PROTIME 47.5 LAB L300.4200 High alert INR 5.1 Result Comment: CRITICAL VALUE VERIFIED. CALLED TO [facility] 02/18/18 1651 Sonal Rojo. RESULTS READ BACK BY SAME . Performed By: #### L300.3900 #### [facility] [address] [place], [address] EMERGENCY REPORT Observed: 02/07/2018 Status: F Source: [place] 7:31 AM [facility] EMERGENCY ROOM REPORT NAME ACCOUNT SEX AGE ADMIT DISCHARGE PT MED. RECORD# NUMBER DATE DATE TYPE BJ [id number] F 77 02/04/18 02/04/18 3 BRITTANY Del Castillo [id number] ROOM: ER DATE OF : 1940 DICTATING PHYSICIAN: Gab Rollins CHIEF COMPLAINT: Vaginal itching, slight discharge and dysuria. HISTORY OF PRESENT ILLNESS: Patient over the last several days has had what started out as vaginal itching. She has had a slight whitish discharge and has developed some burning with urination as well as persistent itching to the area. No fever or chills. Does complain of some mild suprapubic discomfort. No nausea or vomiting. PAST MEDICAL HISTORY: Significant for hypertension, CHF, and chronic pain. She has been seen in the ED a number of times for previous pain- related issues. PAST SURGICAL HISTORY: She has not had previous surgeries. MEDICATIONS: Per medication reconciliation list. She is on Coumadin. ALLERGIES: She has a number of allergies per allergy list. SOCIAL HISTORY: She lives at home with family who accompanies her here. She does not smoke or drink alcohol. PHYSICAL EXAMINATION: This is a 77-year-old female who is alert and appropriate. Patient does not appear toxic. Skin is pink, warm and dry. Vital Signs: Temperature 97.8, pulse 92, respirations 16, blood pressure 131/81. ENT exam is unremarkable. Lungs are clear. Cardiac exam is normal. Abdomen is soft. Minimal suprapubic tenderness but no guarding or rebound. No back or flank tenderness. She moves extremities appropriately without any weaknesses. DIAGNOSTIC DATA: We did get a urinalysis which was completely normal. EMERGENCY DEPARTMENT COURSE AND TREATMENT: Patient was not in a room where pelvic exam could be done and it was not available for quite some time because of the ER busyness. DIAGNOSIS: Symptomatically patient presents with most likely a yeast vaginitis. PLAN/DISPOSITION: I elected to treat this with fluconazole 150 mg q.o.d. She is to Page 1 of 2 BRITTANY LORENZO Emergency Room Report follow up with her family doctor in 3-4 days if no better, returning if symptoms worsen. Dictated By: Gab Rollins MD 02/04/18 14:31 JOB #: [id number] Transcribed By: bárbara 02/04/18 19:29 Electronically signed by: ALEXANDER Rollins M.D. 02/07/18 07:28 Page 2 of 2 BR[facility]ANY LORENZO Emergency Room Report URINALYSIS Collected: 02/04/2018 Status: F Source: [place] 1:15 PM [facility] REPOSITORY TYPE CODE TESTS RESULT OUT OF REFERENCE UNITS RANGE LAB URINALYSIS (LOINC) URINALYSIS Result Comment: URINALYSIS LAB Specimen Type(LOINC) Specimen Type UNSPECIFIED LAB Color(LOINC) NORMAL: YELLOW Color p.yel LAB Clarity(LOINC) NORMAL: CLEAR Clarity clear LAB ph(LOINC) NORMAL: 5.0-8.0 ph 6.5 LAB Protein(LOINC) NORMAL: NEGATIVE Protein NEG LAB Glucose(LOINC) NORMAL: NORMAL Glucose NORM LAB Ketone(LOINC) NORMAL: NEGATIVE Ketone NEG LAB Bilirubin(LOINC) NORMAL: NEGATIVE NEG Bilirubin LAB Blood(LOINC) NORMAL: NEGATIVE Blood 50 Abnormal LAB Urobilinog(LOINC NORMAL: ) NORMAL NORM Urobilinog LAB Sp NORMAL: [place](LOINC) 1.010-1.030 Sp 1.010 [place] LAB Nitrite(LOINC) NORMAL: NEGATIVE Nitrite NEG LAB Leukocytes(LOINC NORMAL: ) NEGATIVE NEG Leukocytes LAB Microscopic(LOIN C) SEE Microscopic BELOW Result Comment: MICROSCOPIC LAB Wbc(LOINC) 0-5/hpf Wbc NONE LAB Rbc(LOINC) 0-3/hpf Rbc NONE LAB Casts(LOINC) Casts NONE LAB Crystals(LOINC) Crystals NONE LAB Amorphous(LOINC) Amorphous NONE LAB Bacteria(LOINC) Bacteria NONE LAB Epi Cells(LOINC) Epi Cells NONE LAB Mucous(LOINC) Mucous NONE LAB Yeast(INC) Yeast NONE Performed By: #### [id number] #### [facility],[address] [place] [address] Observed: 02/04/2018 Status: F Source: [facility] CULTURE URINE 1:15 PM [facility] REPOSITORY CULTURE URINE _URINE CULTURE_ M I C R O B I O L O G Y R E P O R T FINAL Antimicrobial Susceptibility and Organism Identification Report Specimen Number : [id number] Requested : 02/04/18 Specimen Source : URINE Collected : 02/04/18 13:15 [place] [facility]olation : Emergency Room Received : 02/04/18 13:15 Requesting Physician : DANA BYRD Patient/Specimen Tests and Comments Specimen Comments FINAL REPORT: URINE COLONY COUNT: > THAN 100,000 CFU/CC GRAM NEGATIVE RODS Organisms Identified -------- * 01 Escherichia coli 02/06/18 Comments >100,000 cfu Tech : Source : URINE ID # : [id number] FINAL Report Date : / / : Collected : 02/04/18 13:15 Continued on Next Page M I C R O B I O L O G Y R E P O R T FINAL Antimicrobial Susceptibility and Organism Identification Report Isolate 01 Escherichia coli Escherichia coli DRUG DEMETRIUS Sys. Urine --- ----- ----- Ampicillin <=8 S S Aztreonam <=8 S S Ceftriaxone <=8 S S Ceftazidime <=1 S S Cephalothin <=8 S Ciprofloxacin <=1 S S Cefuroxime <=4 S S Ertapenem <=1 S S Nitrofurantoin <=32 S Gentamicin <=4 S S Imipenem <=1 S S Levofloxacin <=2 S S Meropenem <=1 S S Pip/Tazo <=16 S S Piperacillin <=16 S S Trimeth/Sulfa <=2/38 S S Tetracycline <=4 S S Tobramycin <=4 S S +, ++, +++, or S = Susceptible N/R = Not Reported Saurabh = Beta Lactamase Positive I = Intermediate CC = Cost Code TFG = Thymidine-dependent Strain R = Resistant DEMETRIUS = mcg/ml (mg/L) Blank = Data not available, or drug not advisable or tested For Blood and CSF Isolates, a Beta-Lactamase test is recommended for Enterococus species. IB appears in place of S, I (S), +, ++, or +++ with species known to possess inducible B-lactamases; potentially they may become resistant to all B-lactam drugs. Monitoring of patients during/after therapy is recommended. Avoid other/combined B-lactam drugs. (a) Use maximum doses of drug with an aminoglycoside for P. aeruginosa in patients with granulocytopenia or serious infections. (b) Breakpoints based on parenteral dose. For cefuroxime Axetil (PO) use <8=S, 8-16=I, >16=R. (c) For non-enterococcal streptococci, Micrococcus species, and Listeria species, refer to the Ampicillin interpretation. * Interpretations based on approx. adult attainable systemic/urine levels, except drugs with <3 dilutions, which print NCCLS. Doses are guidelines; consider weight and renal/hepatic function. Urine interpretation for lower UTI only. Interpretations based on NCCLS M7-A2. Ticar/K Clav'ate for gram positives based on osha inspector's breakpoints. Tech : Source : URINE ID # : [id number] FINAL Report Date : / / : Collected : 02/04/18 13:15 02/06/18.0639.JLN. 02/05/18.1048.JLN. 02/06/18.0639.JLN.COMPLETE Performed By: #### [id number] #### [facility],[address] [place] [address] 12 LEAD ELECTROCARDIOGRAM Observed: 12/09/2017 Status: F Source: [place] 12:49 PM [facility] REPOSITORY [facility] Cardiovascular Services [address] [place] [address] 12 Lead EKG 12/06/17 2314 MR#: [id number] Acct: [id number] Name: BRITTANY LORENZO Rep #: [id number] : 1940 76 From: Gallo Patricia MD Attending Dr: Status: DEP ER Ordering Dr: Kyrie Jacobs MD Date: 12/06/17 Location: ED Sex: F C Admitted: Test Reason : CP Blood Pressure : / mmHG Vent. Rate : 085 BPM Atrial Rate : 085 BPM P-R Int : 174 ms QRS Dur : 130 ms QT Int : 406 ms P-R-T Axes : 052 008 -08 degrees QTc Int : 483 ms Normal sinus rhythm Non-specific intra-ventricular conduction block Abnormal ECG Confirmed by GALLO PATRICIA MD ([id number]), website/blog editor DIANA STEWART ([id number]) on 12/09/2017 12:49:03 PM Referred By: ZEINA Confirmed By:GALLO PATRICIA MD 12/09/171248 Date Gallo Patricia MD CC: Kyrie Jacobs MD; Osiel Flower MD Signed 12 LEAD ELECTROCARDIOGRAM Observed: 12/09/2017 Status: F Source: [place] 12:49 PM [facility] REPOSITORY [facility] Cardiovascular Services [address] [place] [id number] 12 Lead EKG 12/07/17 0051 MR#: [id number] Acct: [id number] Name: BRITTANY LORENZO Rep #: [id number] : 1940 76 From: Gallo Patricia MD Attending Dr: Status: DEP ER Ordering Dr: Kyrie Jacobs MD Date: 12/07/17 Location: ED Sex: F C Admitted: Test Reason : REPEAT Blood Pressure : / mmHG Vent. Rate : 078 BPM Atrial Rate : 078 BPM P-R Int : 192 ms QRS Dur : 130 ms QT Int : 426 ms P-R-T Axes : 062 000 -18 degrees QTc Int : 485 ms Normal sinus rhythm Left bundle branch block Abnormal ECG Confirmed by GALLO PATRICIA MD ([id number]), website/blog editor DIANA STEWART ([id number]) on 12/09/2017 12:49:16 PM Referred By: ZEINA Confirmed By:GALLO PATRICIA MD 12/09/171248 Date Gallo Patricia MD CC: Kyrie Jacobs MD; Osiel Flower MD Signed EMERGENCY DEPARTMENT Observed: 12/07/2017 Status: F Source: [place] SUMMARY 3:24 AM [facility] REPOSITORY [facility] Medical Records Department [address] [place] [address] Emergency Department Summary 12/06/17 2326 MR#: [id number] Acct: [id number] Name: BRITTANY LORENZO Rep #: [id number] : 1940 76 From: Kyrie Jacobs MD PCP: Osiel Flower MD Status: REG ER - ER Visit Summary Date of Service: 12/06/17 Chief Complaint: Chest pain History of Present Illness: The patient is a 76 F presents to the emergency department chest pain. Patient has significant history of coronary vascular disease. 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 She does follow with both Dr. Patricia and Dr. Mendez. She states that tonight, she began to have some substernal chest heaviness into her back. She states it felt slightly different than prior IA. The patient did have a heart catheterization in 2017 that showed advanced disease that was not amenable to any intervention. She was told that she should not have any further heart catheterizations by her pharmacy services director. She states that her pain was improved after 1 nitro. She denies any recent worsening symptoms. She has had no intolerance of activity. She has had no exertional dyspnea. She does admit to some mild leg edema. She denies fever, chills, other systemic symptoms. Physical Examination: Vital signs reviewed General: Well-nourished, well-developed Head: Normocephalic, atraumatic Eyes: Pupils equal and reactive, extraocular muscles intact Neck, supple, no lymphadenopathy Heart: Regular rate and rhythm Respiratory: No distress, clear bilaterally Abdomen: Soft, nontender, nondistended, no peritoneal signs Back: Nontender Extremities: Nontender, 1+ edema, no cords Skin: Normal color no rash Neuro: Alert and oriented, no focal or lateralizing deficits Test Results: [] Emergency Department Course and Treatment: EKG was obtained on patient arrival. There is no evidence of acute ischemic change. Patient has remained pain- free. Initial cardiac enzymes are negative. INR is mildly supratherapeutic at 3.5, however the patient has had no bleeding. Her x-ray is unchanged. As the patient has had heart catheterization and has no vasculature that is amenable to intervention and she really does not want to proceed with any further intervention, I did discuss presentation with Dr. Mendez her pharmacy services director. He did recommend repeat cardiac enzymes at the 2 hour chris. He states as long as these are negative, he is comfortable with the patient being discharged with outpatient follow-up in the office. The patient would prefer this method. She does not want to be admitted. She underwent repeat cardiac enzymes. these continue to be negative. Patient is resting comfortably. At this time, the patient will be discharged to follow-up with Dr. Mendez as an outpatient. She will return with any return of pain or worsening symptoms. Treatment Plan: [] Disposition: [] Impression: 1. Chest pain This note was generated with truedashation software. It may contain incorrect words, spelling, and punctuation that were not noted in review of the chart prior to signing ED Disposition - Plan for ED Patient: Chief Complaint: Chest Pain Instructions: ED Chest Pain Atypical Unkn Cause Referrals: Urbano Mendez MD [STAFF PHYSICIAN] - (call today) What to do if you have Problems For any increased pain, shortness of breath, bleeding, nausea or vomiting, chest pain, or any unexpected problems, contact your Primary Care Provider. Call [facility] ([phone]) or report to the closest Emergency Room. Call 911 if necessary. 12/07/17 0324 <Electronically signed by Kyrie Jacobs MD> Date Kyrie Jacobs MD Cosigner Signature (If Indicated): Date CC: Osiel Flower MD TROPONIN-I Collected: 12/07/2017 Status: F Source: [place] 1:36 AM [facility] REPOSITORY Order Comment: Comments: Should be drawn 2H after initial Troponin obtained 'TROP' Serial specimen #1, #2, #3, or #4: 2 TYPE CODE TESTS RESULT OUT OF RANGE REFERENCE UNITS LAB L501.4010 <0.06 ng/mL Normal < 0.02 TROPONIN-I Result Comment: TROPONIN-I EXPECTED VALUES <0.05 NEGATIVE 0.06 - 0.59 AT RISK OF IA > OR = 0.60 SUGGEST IA Performed By: #### L501.4010 #### [facility] [address] [place], [place], [address] CBC W/DIFF, AUTOMATED Collected: 12/06/2017 Status: F Source: [place] 11:40 PM [facility] REPOSITORY TYPE CODE TESTS RESULT OUT OF RANGE REFERENCE UNITS LAB L100.1000 4.4-11.0 K/mm3 Normal WBC 6.4 LAB L100.1200 4.2-5.4 M/mm3 Low RBC 3.90 LAB L100.1300 12.0-15.0 g/dl Low HGB 11.2 LAB L100.1400 37-47 % Low HCT 35.2 LAB L100.1500 81-99 fL Normal MCV 90.3 LAB L100.1600 27.0-32.0 pg Normal MCH 28.7 LAB L100.1700 32-36 g/gl Low MCHC 31.8 LAB L100.1810 11.6-14.6 % High RDW CV 16.3 LAB L100.1820 35.1-43.9 fl High RDW SD 53.2 LAB L100.1900 150-450 K/mm3 Normal PLT 245 LAB L100.2000 6.2-12.0 fl Normal MPV 10.2 LAB L100.2100 47-70 % Normal NEUT% 62.4 LAB L100.2200 19-41 % Normal LY% 26.3 LAB L100.2300 0-10 % Normal MONO% 9.5 LAB L100.2400 0-5 % Normal EO% 1.3 LAB L100.2500 0-1 % Normal BASO% 0.3 LAB L100.2550 0.0-0.9 % Normal IM GRAN % 0.200 Result Comment: IG% - Immature Granulocytes (promyelocytes, myelocytes and metamyelocytes) > 1% indicates that a LEFT SHIFT is Present. LAB L100.2620 2.0-7.7 X10 3/uL Normal Absolute Neut 4.0 LAB L100.2720 0.83-4.51 X10 3/ul Normal Absolute Lymph 1.68 Performed By: #### L100.0100 #### [facility] [address], [address] PROTHROMBIN TIME W/INR Collected: 12/06/2017 Status: F Source: MARGARITA 11:40 PM [facility] REPOSITORY TYPE CODE TESTS RESULT OUT OF REFERENCE UNITS RANGE LAB L300.4150 11.7-14.9 SECONDS High PROTIME 35.5 LAB L300.4200 High alert INR 3.5 Result Comment: CRITICAL VALUE VERIFIED. CALLED TO MAXIME JAIN 12/07/17 0001 Jo Ann Crowell. RESULTS READ BACK BY SAME . Performed By: #### L300.3900 #### [facility] [address] [place], [address] BASIC METABOLIC Collected: 12/06/2017 Status: F Source: MARGARITA PROFILE (BMP) 11:40 PM [facility] REPOSITORY Order Comment: 'TROP' Serial specimen #1, #2, #3, or #4: 1 TYPE CODE TESTS RESULT OUT OF RANGE REFERENCE UNITS LAB L501.0100 74-106 mg/dL High GLU 128 Result Comment: Fasting Glucose result greater than or equal to 126 mg/dL suggests DIABETES MELLITUS per A.D.A. criteria. Please note revised GLUCOSE reference range effective 2017. LAB L501.1000 7-18 mg/dL Normal BUN 16 LAB L501.1100 0.55-1.02 mg/dL High CREAT,SERUM 1.11 Result Comment: The validity of the calculated GFR AND GFRAA in patients over 70 years has not been determined. Clinical correlation is essential. LAB L501.1110 >60 mL/min Low EST GFR 50 Result Comment: Non- GFR Calc LAB L501.1115 >60 mL/min Normal EST GFR - AA 61 Result Comment: GFR Calc LAB L501.1255 ml/min Normal Estimated CRCL 37.59 LAB L501.1300 10-20 RATIO Normal BUN/CRE 14.4 LAB L501.2200 8.5-10 mg/dL Normal .1 CA 9.0 LAB L501.5300 136-14 mmol/L Normal 5 NA 141 LAB L501.5600 3.5-5. mmol/L Normal 1 K 3.9 LAB L501.5900 98-107 mmol/L High CL 108 LAB L501.6100 21.0-3 mmol/L Normal 2.0 CO2 28.0 LAB L501.6200 5-15 Normal GAP 5 Performed By: #### L500.2500, L501.4010 #### [facility] [address] [place], [address] TROPONIN-I Collected: 12/06/2017 Status: F Source: [place] 11:40 PM [facility] REPOSITORY Order Comment: 'TROP' Serial specimen #1, #2, #3, or #4: 1 TYPE CODE TESTS RESULT OUT OF RANGE REFERENCE UNITS LAB L501.4010 <0.06 ng/mL Normal < 0.02 TROPONIN-I Result Comment: TROPONIN-I EXPECTED VALUES <0.05 NEGATIVE 0.06 - 0.59 AT RISK OF IA > OR = 0.60 SUGGEST IA Performed By: #### L500.2500, L501.4010 #### [facility] [address] [place], [address] CHEST 1 VIEW Observed: 12/06/2017 Status: F Source: [place] (PORTABLE) 11:23 PM [facility] REPOSITORY [facility] Imaging Services [address] [place] [address] Chest 1 View (Portable) MR#: [id number] Acct: [id number] Name: BRITTANY LORENZO Rep #: [id number] : 1940 F 76 From: Omar Rdz DO PCP: Osiel Flower MD Status: PRE ER Study: Chest 1 View (Portable) Date of Exam: 12/06/17 Exam# [id number] Ordering Dr: Kyrie Jacobs MD STUDY: X-RAY CHEST REASON FOR EXAM: Female, 76 years old. Left chest pain TECHNIQUE: Single frontal view COMPARISON: August 14, 2017 FINDINGS: Stable sternotomy wires. The lungs are clear and expanded. There is no demonstrated pleural abnormality. Cardiomegaly. Normal mediastinum and pranay. Normal visualized pulmonary arteries. Normal visualized aortic arch and descending thoracic aorta. Normal visualized thoracic spine. Normal visualized ribs, clavicles, and shoulders. There is no demonstrated abnormality of the visualized soft tissue structures of the upper abdomen. RAD/Chest 1 View (Portable) IMPRESSION: Cardiomegaly. Electronically Signed: Omarmichael Rdz DO at 23:47 EDT Tel [phone], Service support , CC: Kyrie Jacobs MD; Osiel Flower MD Cigarette Book Maker: Signed PROTHROMBIN TIME W/INR Collected: 11/24/2017 Status: F Source: [place] 10:32 AM [facility] REPOSITORY TYPE CODE TESTS RESULT OUT OF RANGE REFERENCE UNITS LAB L300.4150 11.7-14.9 SECONDS High PROTIME 33.8 LAB L300.4200 Normal INR 3.3 Performed By: #### L300.3900 #### [facility] [address] [place], [address] CARDIOLOGY VISIT Observed: 11/20/2017 Status: F Source: [place] REPORT 3:44 PM [facility] REPOSITORY [facility] [address] [place] [address] OFFICE VISIT Date of Service: 11/18/17 MR#: [id number] Acct: [id number] Name: BRITTANY LORENZO Rep #: [id number] : 1940 Provider: Bre Marinelli Age/Sex: 76/F Location: [facility] Status: Signed HPI HPI Details: BRITTANY LORENZO, is a 76 F who presents to the office today for a cardiovascular follow-up. She has a history of coronary artery disease with bypass surgery with an QIU to the LAD, SVG to the diagonal and RCA. Pt is not having any chest pain/heaviness/tightness. She has been doing ECP therapy. This is going well. She has 3 treatments left. She has not had any worsening SOB. She does not have any palpitations. She does not have any lightheadedness/dizziness. She does not have any near syncope/syncope. She does occasionally have edema. She does ambulate with a walker for balance. Intake Vital Signs11/18/17 Height 5 ft 5 in 11/18/17 Weight: 225 lb 11/18/17 Body Mass Index (BMI) 37.4 11/18/17 Blood Pressure 118/60 11/18/17 Blood Pressure Location Lt brachial Intake Visit Reasons: 6 M FU Double End Tenoner Setter Required: No Accompanied by: Is patient in pain?: Yes (left knee and right foot discomfort) Pain scale (1-10): 5 Allergies Sulfa (Sulfonamide Antibiotics) Allergy (Verified 11/18/17 13:14) Rash doxycycline Adverse Reaction (Mild, Verified 11/18/17 13:14) Swelling cephalexin monohydrate [From Keflex] Adverse Reaction (Verified 11/18/17 13:14) Upset Stomach dicyclomine Adverse Reaction (Verified 11/18/17 13:14) Other NSAIDS (Non-Steroidal Anti-Inflamma Adverse Reaction (Verified 11/18/17 13:14) Other Penicillins Adverse Reaction (Verified 11/18/17 13:14) Unknown tetracycline [Tetracycline] Adverse Reaction (Verified 11/18/17 13:14) Swelling Medications Aspirin E.C. [Ecotrin] 81 mg PO DAILY@0800 03/08/17 [History Confirmed 11/18/17] Calcium Carbonate/Vitamin D3 [Calcium 500-Vit D3 600 Caplet] 1 ea PO BID 03/08/17 [History Confirmed 11/18/17] Diphenhydramine HCl [Sleep Aid] 50 mg PO QHS 03/08/17 [History Confirmed 11/18/17] Furosemide [Lasix] 40 mg PO DAILY 03/08/17 [History Confirmed 11/18/17] Gabapentin [Neurontin] 600 mg PO 4X/DAY 03/08/17 [History Confirmed 11/18/17] Omeprazole [Prilosec] 20 mg PO BID 03/08/17 [History Confirmed 11/18/17] losartan 100 mg tablet 100 mg PO QDAY #90 tab 08/24/17 [Rx Confirmed 11/18/17] rosuvastatin 40 mg tablet 40 mg PO DAILY #90 tab 09/27/17 [Rx Confirmed 11/18/17] warfarin 1 mg tablet 1 mg PO .COMPLEX 10/04/17 [History Confirmed 11/18/17] isosorbide mononitrate ER 120 mg tablet,extended release 24 hr 120 mg PO DAILY #90 tab 10/18/17 [Rx Confirmed 11/18/17] warfarin 3 mg tablet 3 mg PO .COMPLEX #90 tab 10/25/17 [Rx Confirmed 11/18/17] metoprolol succinate ER 100 mg tablet,extended release 24 hr 100 mg PO DAILY #30 tab 11/16/17 [Rx Confirmed 11/18/17] Ejection fraction %: 30 to 34 PFSH Medical History Atherosclerotic heart disease of [place] coronary artery without angina pectoris (Chronic) Atherosclerosis of coronary artery bypass graft(s), unspecified, with other forms of angina pectoris (Chronic) 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 (Chronic) History of DVT (deep vein thrombosis) (Chronic) care home current use of anticoagulant (Chronic) NSTEMI (non-ST elevated myocardial infarction) (Resolved) Benign hypertension (Chronic) Hyperlipidemia (Chronic) CAD (coronary artery disease) (Chronic) Diabetes mellitus, type 2 (Chronic) History of pulmonary embolus (PE) (Chronic) Systolic CHF, chronic (Chronic) Ischemic cardiomyopathy (Chronic) History of left heart catheterization (Resolved) Surgical History Hx of bilateral breast reduction surgery (Resolved) S/P complete hysterectomy (Resolved) H/O tubal ligation (Resolved) S/P CABG x 6 (Chronic) H/O arthroscopic knee surgery (Resolved) Hx of cholecystectomy (Resolved) Hx of total knee replacement (Resolved) Family History Mother Myocardial infarction Hypertension Heart disease Brother Hypertension Hx of CABG Father Cancer esophageal Social History Smoking Status: Never smoker alcohol intake: never substance use type: does not use caffeine: Yes Type: coffee, carbonated beverages what type of physical activity do you participate in: other details: cardiac rehab frequency: 3-4 times per week duration: 45-60 minutes/day seatbelt use: always do you feel safe at home: Yes ROS Const Const: Negative for weakness, fatigue, fever(s) or headache(s) Eyes Eyes: Negative for blind spots, loss of peripheral vision or transient loss of vision ENT ENT: Negative for headache(s), dizziness, tinnitus or Nosebleed/epistaxis Cardio Chest Pain: No Palpitations: No Edema: None Muscle aches with walking: None Resp Respiratory: Negative for SOB with activity, SOB at rest, SOB orthopnea\SOB lying down or Cough GI GI: Negative nausea, vomiting, heartburn or vomiting blood/hematemesis : Negative for hematuria Musc Musc: Negative for muscle aches/ myalgia Neuro Neuro: Negative for weakness, headache(s), dizziness, near syncope, syncope, lightheadedness or orthostatic symptoms Nirav Hematologic/Lymphatic: Negative for easy bleeding Endo Endo: Negative for fatigue Cardiology Exam Const Appearance: cooperative, no acute distress and well developed Orientation: alert, awake and oriented x3 Head Head: normocephalic and atraumatic Mouth: moist mucous membranes Eyes General: appearance normal, both eyes and all related structures Conjunctivae: conjunctivae normal Pupils: PERRL EOM: EOM intact bilaterally Neck Neck: normal visual inspection, no lymphadenopathy and no JVD Carotids: Negative bruit Neck Mass: Negative Neck mass Chest Chest inspection: normal inspection of the chest and symmetric chest movement Auscultation: Bilateral: Clear to Auscultation Cardio Palpation: normal PMI Rate: regular rate Rhythm: regular rhythm Heart sounds: S1 normal, S2 normal and murmur; negative rub or gallop Murmur: harsh, mid systolic and Grade 3/6 GI GI: normal to inspection, soft, no hepatosplenomegaly and bowel sounds present; negative tender Neuro General: alert, awake, oriented x3, CN's II-XI intact bilaterally and moves all extremities Extremities Pulses: Normal: Right Posterior Tibial Pulse, Left Posterior Tibial Pulse, Right Radial Pulse, Left Radial Pulse Lower Extremity Edema: None: Bilateral Psych Psychological: normal affect Supplemental Info Heart catheterization in 2017 for an abnormal stress test which demonstrated left main normal, mid LAD totally occluded, proximal SVG Y graft to the first diagonal patent, circumflex totally occluded after the first obtuse marginal, severe disease involving the first obtuse marginal and second obtuse marginal, RCA totally occluded. 2 saphenous vein grafts to the RCA and obtuse marginal branches were occluded which this was known previously. Collateral flow from the LAD to the right posterior descending noted. Echocardiogram at that time demonstrated an ejection fraction of 37%. Medical management was recommended. Assessment AND Plan 1. Atherosclerosis of [place] coronary artery of [place] heart without angina pectoris I25.10 Plan - VERNA Best Patient will continue with her ECP therapy. She has not had any symptoms of angina. She will continue to be monitored closely. She will continue with risk factor modification and aggressive medical management. 2. Ischemic cardiomyopathy I25.5 Plan - VERNA Best Patient does not have any symptoms just of heart failure. We will continue to monitor by history, exam and echocardiograms as deemed appropriate. 3. Pure hypercholesterolemia E78.00 Plan - VERNA Best This is being managed by her primary care doctor. Will obtain labs for continuity of care. 4. HTN (hypertension), benign I10 Plan - VERNA Best Adequately controlled on current medications. Will not make any adjustments. Plan Detail Additional Comments - VERNA Best Patient was questioning whether or not she is a candidate for knee surgery. She is considering this. Advised that she would at least be a moderate risk and then that should be done at a tertiary care center. The above patient was discussed with Dr. Mendez in Dr. Patricia's absence, he agrees with plan of care. Thank you for allowing us to participate in patient's plan of care, if you have any questions please do not hesitate to call. This note was generated using a voice recognition system and there may be incorrect words, spelling or punctuation errors that were not noted when reviewing the office note prior to saving. Follow Up 4 Months (MMM) 6 Months (PFM) Coding Level of Care Code Off vis,est,level 3 Diagnoses Atherosclerosis of [place] coronary artery of [place] heart without angina pectoris I25.10 [place] vs. transplanted heart: [place] heart Ischemic cardiomyopathy I25.5 Pure hypercholesterolemia E78.00 Hyperlipidemia type: pure hypercholesterolemia HTN (hypertension), benign I10 Coding Level of Care Code Off vis,est,level 3 Diagnoses Atherosclerosis of [place] coronary artery of [place] heart without angina pectoris I25.10 [place] vs. transplanted heart: [place] heart Ischemic cardiomyopathy I25.5 Pure hypercholesterolemia E78.00 Hyperlipidemia type: pure hypercholesterolemia HTN (hypertension), benign I10 11/18/17 1403 <Electronically signed by Bre GILLESPIE> Date Bre GILLESPIE 11/20/17 1544<Electronically signed by Urbano Mendez MD> Cosigner Signature: Date (if applicable) Urbano Mendez MD CC: Osiel Flower MD EMERGENCY REPORT Observed: 11/20/2017 Status: F Source: [facility] 7:44 AM [facility] EMERGENCY ROOM REPORT NAME ACCOUNT SEX AGE ADMIT DISCHARGE PT MED. RECORD# NUMBER DATE DATE TYPE BJ [id number] F [id number] 11/06/17 11/06/17 3 BRITTANY M [id number] ROOM: ER DATE OF : 1940 DICTATING PHYSICIAN: Ben Nix CHIEF COMPLAINT: Right foot swelling. HISTORY OF PRESENT ILLNESS: The patient has been having pain and swelling progressively increasing over the past week and a half. No history of injury. The pain is more involving the medial aspect of the foot and the bottom of the foot, gradually increased swelling and now she is hurting on the bottom of her foot. Most of the pain started around the big toe at the base of the big toe. The area developed some redness. Did not have any fever or chills. She has some radiation of her pain to the anterior aspect of the ankle and distal lower leg. No calf pain or swelling. PAST MEDICAL HISTORY: CHF, hypertension. PAST SURGICAL HISTORY: Appendectomy, gallbladder, hysterectomy, knee replacement, breast reduction and bowel surgery. CURRENT MEDICATIONS: Reviewed, reconciled. ALLERGIES: Multiple: Sulfa, penicillin, Keflex, doxycycline, Endocet, and NSAID's. FAMILY HISTORY: No pertinent family history. SOCIAL HISTORY: Lives with family. REVIEW OF SYSTEMS: As per assessment sheet. PHYSICAL EXAMINATION: Alert, awake, well appearing, color is good. Vital Signs: Blood pressure is 106/54. Pulse 77. Respirations 18. Temperature: 98.2. O2 saturation 96% on room air. Heart: Regular rhythm, no rub audible. Lungs: Clear to auscultation, resonant, wheezes audible. Right foot has mild to moderate swelling, some erythema at the base of the big toe. Tenderness on the medial aspect of the foot and the plantar surface of the foot. There is no calf tenderness. Has normal pedal pulses and normal capillary refill in the toes. DIAGNOSTIC DATA: X-ray on the right foot read by me showed mild degenerative joint disease. Her laboratories showed slightly elevated glucose to 135. CBC was Page 1 of 2 BRITTANY LORENZO Emergency Room Report normal, white count 8.8, hemoglobin 11.6, and a normal Differential. Uric acid was normal. MEDICAL DECISION MAKING/EMERGENCY DEPARTMENT COURSE: Consider arthritis, tendonitis, cellulitis and gout. At this point, I am going go ahead and put the patient on prednisone and also put her on Cipro since there might be an infectious process and put her on Delaplane for a couple of days for pain. She is to follow up with her family physician in the next 2 days. DIAGNOSIS: Tendonitis of the right foot. PLAN/DISPOSITION: As above. DISCHARGE CONDITION: Stable. D: Ben Nix MD TD: 11/06/17 17:03 JOB #: [id number] Transcribed by: michi Electronically signed by: E-Sign Ben Nix M.D. 11/20/17 07:44 Page 2 of 2 BRITTANY LORENZO Emergency Room Report PROTHROMBIN TIME W/INR Collected: 11/10/2017 Status: F Source: MARGARITA 10:38 AM [facility] REPOSITORY TYPE CODE TESTS RESULT OUT OF RANGE REFERENCE UNITS LAB L300.4150 11.7-14.9 SECONDS High PROTIME 29.8 LAB L300.4200 Normal INR 2.8 Performed By: #### L300.3900 #### [facility] [address] [place], [address] CMP WITH EGFR Collected: 11/06/2017 Status: F Source: [place] WARD 11:27 AM [facility] REPOSITORY TYPE CODE TESTS RESULT OUT OF RANGE REFERENCE UNITS LAB CMP with eGFR(LOINC) CMP with eGFR Result Comment: COMPREHENSIVE METABOLIC PANEL LAB SODIUM(LOINC) 136 - 145 mmol/l SODIUM 138 LAB POTASSIUM(LOINC) 3.5 - 5.1 mmol/L POTASSIUM 4.0 LAB CHLORIDE(LOINC) 98 - 107 mmol/L CHLORIDE 103 LAB CO2(LOINC) 21.0 - mmol/L 31.0 CO2 24.7 LAB GLUCOSE(LOINC) 74 - 106 mg/dl GLUCOSE High 135 LAB BUN(LOINC) 6 - 20 mg/dl BUN 16 LAB CREATININE(LOINC) 0.6 - 1.2 mg/dl CREATININE 0.9 LAB AST/SGOT(LOINC) 13 - 39 U/L AST/SGOT 14 LAB ALK PHOS(LOINC) 38 - 126 U/L ALK PHOS 60 LAB CALCIUM(LOINC) 8.6 - mg/dl 10.2 CALCIUM 9.4 LAB TOTAL 6.4 - 8.3 g/dl PROTEIN(LOINC) TOTAL PROTEIN 7.2 LAB ALBUMIN(LOINC) 3.4 - 4.8 g/dL ALBUMIN 4.0 LAB GLOBULIN(LOINC) 1.5 - 3.8 G/DL GLOBULIN 3.2 LAB A/G RATIO(LOINC) 0.9 - 1.6 A/G RATIO 1.3 LAB TOTAL BILI(LOINC) 0.0 - 1.5 mg/dl TOTAL BILI 0.8 LAB B/C RATIO(LOINC) 0 - 30 ratio B/C RATIO 18 LAB ALT/SGPT(LOINC) 8 - 35 U/L ALT/SGPT 10 LAB ANION GAP(LOINC) 10 - 20 mmol/L ANION GAP 14 LAB AGE(LOINC) years AGE 76 LAB eGFR(LOINC) 60 - 999 ML/MINUTE eGFR >60 LAB eGFR(AA)(LOINC) 60 - 999 ML/MINUTE eGFR(AA) >60 Result Comment: ACCORDING TO THE NATIONAL KIDNEY DISEASE EDUCATION PROGRAM(NKDE), A NORMAL eGFR IS A VALUE GREATER THAN OR EQUAL TO 60 ML/MIN/1.73 SQ METERS. CHRONIC KIDNEY DISEASE: <60mL/MIN/1.73 SQ METERS KIDNEY FAILURE: <15mL/MIN/1.73 SQ METERS THIS TEST SHOULD ONLY BE USED FOR PATIENTS 18 YEARS OF AGE AND OLDER. Performed By: #### [id number] #### [place] [address] URIC ACID Collected: 11/06/2017 Status: F Source: [place] WARD 11:27 AM [facility] REPOSITORY TYPE CODE TESTS RESULT OUT OF RANGE REFERENCE UNITS LAB URIC 2.3 - 6.6 mg/dl ACID(LOINC) URIC ACID 5.5 Performed By: #### [id number] #### [place] [id number] CBC Collected: 11/06/2017 Status: F Source: [place]ARD 11:27 AM [facility] REPOSITORY TYPE CODE TESTS RESULT OUT OF RANGE REFERENCE UNITS LAB CBC(LOINC) CBC Result Comment: CBC-COMPLETE BLOOD COUNT LAB WBC(LOINC) 4.5 - 10.8 x 10EE3/UL WBC 8.8 LAB RBC(LOINC) 4.10 - x 10EE6/UL 5.30 RBC 4.11 LAB HEMOGLOBIN(LOINC 12.0 - g/dl ) 16.0 Low HEMOGLOBIN 11.6 LAB HEMATOCRIT(LOINC 34.0 - % ) 46.0 HEMATOCRIT 35.0 LAB MCV(LOINC) 80 - 99 fl MCV 85 LAB MCH(LOINC) 27 - 33 pg MCH 28 LAB MCHC(LOINC) 32 - 36 X10 3 MCHC 33 LAB RDW/CV(LOINC) 12.0 - % 15.6 RDW/CV High 16.8 LAB PLATELET(LOINC) 150 - 450 x10EE3/UL PLATELET 223 LAB MPV(LOINC) 6.6 - 10.5 fl MPV 9.0 Result Comment: AUTOMATED DIFFERENTIAL LAB NEUT %(LOINC) 46.0 - 76.0 % NEUT % 59.9 LAB LYMPH %(LOINC) 20.0 - 45.0 % LYMPH % 29.1 LAB MONOS %(LOINC) 0.0 - 10.0 % MONOS % 9.4 LAB EO %(LOINC) 0.0 - 7.0 % EO % 0.8 LAB BASO %(LOINC) 0.0 - 2.0 % BASO % 0.8 LAB Lymph #(LOINC) 0.80 - 2.80 x10EE3/U L Lymph # 2.50 LAB Neut #(LOINC) 1.50 - 7.10 x10EE3/U L Neut # 5.30 LAB [place] #(LOINC) 0.20 - 1.00 x10EE3/U L [place] # 0.80 LAB EO #(LOINC) 0.00 - 0.50 x10EE3/U L EO # 0.10 LAB Baso #(LOINC) 0.00 - 0.10 x10EE3/U L Baso # 0.10 LAB MANUAL DIFF(LOINC) MANUAL DIFF N/A LAB MORPHOLOGY(LOINC ) MORPHOLOGY N/A Result Comment: {CD] Performed By: #### [id number] #### [facility],[address] [facility] [address] FOOT COMPLETE RT Observed: 11/06/2017 Status: F Source: [place] WARD 11:19 AM [facility] REPOSITORY [address] [address] Patient: BRITTANY LORENZO Phone#: : 1940 Age: 76 Gender: F Pt. Type: ER Account: [id number] Location: [facility] Ordering: BEN NIX Exam Date: 11/06/2017/11:03 Family Phys: OSIEL FLOWER Charge Code: 139271 Physician: Hendry Order #: [id number] DLP Dose#: PROCEDURE: X-RAY FOOT RT COMPLETE MIN 3 VIEWS COMPARISON: None. INDICATIONS: Pain FINDINGS: BONES: No fracture or dislocation. Degenerative joint space loss at the PIP and DIPs joint spaces. There is a prior posterior process of talus. There are calcifications in the cyst soft tissues inferior to the calcaneus. There is enthesopathy at the Achilles attachment. Calcifications are noted adjacent to the anterior talus, seen on the lateral view. SOFT TISSUES: There is soft tissue swelling of the mid to distal foot. EFFUSION: None visible. OTHER: Surgical clips are present at the level of the distal lower extremity medially CONCLUSION: 1. Soft tissue swelling without evidence of acute osseous abnormality. Dictated by: Claudette Jameson MD on 11/07/2017 at 19:26 Approved by: Claudette Jameson MD on 11/07/2017 at 19:26 PROTHROMBIN TIME W/INR Collected: 11/05/2017 Status: F Source: [place] 10:36 AM [facility] REPOSITORY TYPE CODE TESTS RESULT OUT OF RANGE REFERENCE UNITS LAB L300.4150 11.7-14.9 SECONDS High PROTIME 29.3 LAB L300.4200 Normal INR 2.8 Performed By: #### L300.3900 #### [facility] [address] [place], [address] XR KNEE COMPLETE LEFT Observed: 10/19/2017 Status: F Source: [facility] 3:19 PM [facility] REPOSITORY Exam Date/Time: 10/19/2017 15:40 EST Reason for Exam: left knee OA Report XR Knee Complete Left, 10/19/2017 3:19 PM CLINICAL STATEMENT: Left knee pain. No known injury. COMPARISON: None. FINDINGS: Four views left knee were obtained. There is near [id number]-nw-[id number] joint space narrowing of the medial compartment with subchondral sclerosis and marginal osteophyte formation. Degenerative changes are also noted at the patellofemoral joint and to a lesser degree in the lateral compartment. There is evidence of chondrocalcinosis in the lateral compartment. No acute fracture or dislocation. No significant joint effusion. Multiple surgical clips are noted in the medial leg. 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 FINAL REPORT Dictated: 10/19/2017 7:39 pm Kaz Guerrier MD Signed (Electronic Signature): 10/19/2017 7:39 pm Signed by: Kaz Guerrier MD Technologist: [facility] XR SPINE LUMBAR W/ Observed: 10/19/2017 Status: F Source: [facility] 3:19 PM [facility] REPOSITORY Exam Date/Time: 10/19/2017 15:40 EST Reason for Exam: L-Spond Report XR Spine Lumbar w/ Obliques, 10/19/2017 3:19 PM CLINICAL STATEMENT: Back pain. No known injury. COMPARISON: Five views lumbar spine were obtained. Five lumbar- type vertebrae are present. Disc spaces are maintained. There is mild central compression deformity of L1 and L4 without sclerosis or fracture line identified. Facet hypertrophy noted at L4-L5 and L5-S1. There is background of diffuse demineralization. Alignment is maintained. Pedicles appear intact and symmetric. Visualized portions of the bony pelvis are unremarkable. Aortoiliac calcification is noted. Surgical clips project in the right upper quadrant. Bowel gas pattern is nonobstructive. IMPRESSION: No acute fracture or malalignment of the lumbar spine. Lower lumbar facet arthropathy and mild chronic-appearing compression deformity of L1 and L4. Correlate with history and point tenderness. FINAL REPORT Dictated: 10/19/2017 7:39 pm Kaz Guerrier MD Signed (Electronic Signature): 10/19/2017 7:39 pm Signed by: Kaz Guerrier MD Technologist: [facility] PROGRESS Observed: 10/08/2017 Status: COMPLETED Source: [place] 12:40 PM [facility] REPOSITORY HNO ID: [id number] Author: Osiel Flower Service: (none) Author Type: Physician Type: Progress Notes Filed: 10/08/2017 1:05 PM Note Text: Patient presents with: ED Follow Up: [place], right arm pain HPI: Patient presents today for office visit for er follow up. Nursing Notes: Alta Meyer Ma 10/08/2017 12:02 PM Signed HOSPITAL/ER FOLLOW UP: Reason for visit: right arm pain Which facility: [place] Date of visit: unsure Diagnosis: pulled muscle Testing done: x-ray, US Treatment given: none Current symptoms: pain in upper arm when raising arm up Pt has appointment on 10/18/17 with pain management in [place]. She had said she had a procedure done and they lifted her off the table. Her right arm and shoulder have been bothering her since November. She went to the ER because pain is worse. Did an xray and an ultrasound which were negative. Shoulder is not swollen or black or blue. No numbness. Some neck pain MEDICATIONS: Current Outpatient Prescriptions: gabapentin (NEURONTIN) 600 mg tablet Take 1 tablet by mouth four times daily for 90 days. warfarin (COUMADIN) 5 mg tablet Per cardiology metoprolol tartrate, short acting, (LOPRESSOR) 100 mg tablet Take 100 mg by mouth once daily. ciprofloxacin HCl (CIPRO) 250 mg tablet Take 250 mg by mouth once daily. isosorbide mononitrate ER (IMDUR) 120 mg 24 hr tablet Take 120 mg by mouth once daily. losartan (COZAAR) 50 mg tablet Take 1 tablet by mouth once daily. (Patient taking differently: Take 100 mg by mouth once daily. ) ondansetron orally disintegrating (ZOFRAN ODT) 4 mg disintegrating tablet Take 1 tablet by mouth every 6 hours as needed for Nausea/Vomiting. omeprazole (PRILOSEC) 20 mg capsule Take 1 capsule by mouth twice daily. nitroglycerin sublingual (NITROQUICK) 0.4 mg SL tablet Dissolve 0.4 mg under the tongue every 5 minutes as needed. Up to 3 max warfarin 4 mg tablet Take 4 1/2 mg by mouth daily CYANOCOBALAMIN, VITAMIN B-12, (VITAMIN B-12 ORAL) Take by mouth. rosuvastatin (CRESTOR) 40 mg tablet Take 40 mg by mouth once daily. furosemide (LASIX) 40 mg tablet Take 40 mg by mouth once daily. Aspirin 81 mg ORAL Tab Take 81 mg by mouth. CALCIUM CARBONATE/VITAMIN D3 (CALCIUM + D ORAL) Take by mouth. No current facility-administered medications for this visit. ALLERGIES: ALLERGIES Allergen Reactions - Wilda Inhibitors Cough WILDA cough - Doxycycline Swelling Tongue and feet - Keflex [Cephalexin] Vomiting - Penicillins Rash edema - Percocet [Oxycodone* GI Upset Patient has taken, needs to eat prior to taking. - Sulfa (Sulfonamide * Rash - Tetracycline Rash difficulty breathing PAST MEDICAL HISTORY Diagnosis Date - Backache, unspecified In pain management with Dr. Reyna - Cardiomyopathy (HCC) - Compression fracture of L4 lumbar vertebra (HCC) Dr. Polo prescribing pain meds - Coronary artery disease Dr Mendez; s/p CABG, no IA - Depression - Diabetes mellitus, type 2 (HCC) - Diabetic retinopathy, nonproliferative, moderate (HCC) - Hiatal hernia - History of DVT (deep vein thrombosis) cardiology manages, coumadin. after CABG(PE), (L leg) heart cath, and (R leg) knee surgery - Hyperlipidemia - Hypertension - Pain management Sees Dr. Reyna at [facility] for back - Peripheral neuropathy - Shortness of breath PAST SURGICAL HISTORY Procedure Laterality Date - APPENDECTOMY - BREAST BIOPSY left, aspiration and excision of cyst - COLONOSCOP W/ OR W/O [facility] SPEC 12 years ago Colonoscopy - COLONOSCOP W/ OR W/O [facility] SPEC 03/30/11 - EGD W/O [facility] SPECIMEN W/BX 03/30/11 - EGD W/O OR W/BRUSH/WASH 11/22/2013 EGD - EGD W/O OR W/BRUSH/WASH 04/24/2016 EGD - ESOPHAGEAL DILATATION 03/30/11 - HEART CATHETERIZATION - HEART SURGERY HX - LAPAROSCOPIC CHOLEYCYSTECTOMY 1997 Cholecystectomy, lap - PAST SURGICAL HISTORY OF 1958 bowel surgery, perforation - PAST SURGICAL HISTORY OF 2000 left knee laparthroscopy - PAST SURGICAL HISTORY OF 07/26/14 lumbar pain injections - REDUCTION OF LARGE BREAST 1995 - REPAIR HEART WND W CP BYPASS 2002 bypass x 6, Dr. Becerra/[facility] - TOTAL ABDOM HYSTERECTOMY 1990 TATIANA/BSO; benign menorrhagia, endometriosis - TOTAL KNEE REPLACEMENT Right 2007 right partial knee replacement/ Dr. Hussein FAMILY HISTORY Problem Relation Age of Onset - Heart Mother - Cancer Father of esophageal cancer Social History Marital status: Spouse name: Years of education: Number of children: 2 Occupational History Occupation Employer [employer] Social History Main Topics Smoking status: Never Smoker Smokeless status: Never Used Alcohol use: No Drug use: No Sexual activity: No Reviewed current medications, allergies, past medical history, surgical history, family history and social history today. REVIEW OF SYSTEMS All other reviewed and negative other than HPI. HEALTH MAINTENANCE: Reviewed health maintenance issues today and recommended the following in detail. TETANUS due on 1949 LDL due on 09/21/2017 VITALS: BP 128/68 Pulse 72 Resp 12 Wt 101.2 kg (223 lb) BMI 37.11 kg/m2 Last 4 Encounter Wt Readings: Date: Wt: 10/08/2017 101.2 kg (223 lb) 07/20/2017 102.5 kg (226 lb) 04/20/2017 103.7 kg (228 lb 9.6 oz) 02/17/2017 105.1 kg (231 lb 9.6 oz) PHYSICAL EXAMINATION: General appearance: Well appearing, alert, in no acute distress, well-hydrated, well nourished. Skin: Skin color, texture, turgor normal, no suspicious rashes or lesions Neck: supple Lungs: Lungs clear to auscultation. No wheezing, rhonchi, rales Heart: RRR without murmur, gallop, or rubs. No ectopy Abdomen: Normal abdominal exam, Abdomen soft, non-tender. Bowel sounds normal. No masses, organomegaly Extremities: No deformities, edema, skin discoloration, clubbing or cyanosis. Good capillary refill. Shoulder: Location: right Redness: No. Warmth: No. Tenderness to palpation: tender over upper arm. . Swelling: No. Range of motion: decreased . Empty can test: equivocal. Normal pp's ASSESSMENT/PLAN: 1. Acute pain of right shoulder - ICD9: 719.41, ICD10: M25.511 - Continue ice and tylenol. Advised I can give her a small amount of muscle relaxers. Requests opiates. I decline to give chronic opiates at this point. - CONSULT TO ORTHOPAEDICS Osiel Flower MD EMERGENCY REPORT Observed: 10/08/2017 Status: F Source: [place] 8:30 AM [facility] [place] REPORT NAME NUMBER SEX AGE ADMIT DISC TYPE MED.RECORD# BJ Del Castillo [id number] F 76 09/28/17 09/28/17 Jaylen [id number] ROOM:ER-E DATE OF :1940 PHYSICIAN NO.:[id number] PHYSICIAN NAME:E-Sign: Dr. Crystal Simon D.O. PHYSICIAN:CHING ESTRADA [facility] PHYSICIAN: CHING ESTRADA HISTORY OF PRESENT ILLNESS: This is a 76-year-old white female complaining of right upper arm pain with some swelling for the past one year. She states the pain started after she was given some nerve blocks in her right posterior neck and right posterior back at [facility] about a year ago. She states they pulled her up by her right arm, and she has had pain and swelling in that right arm ever since. She does take Coumadin. She has a history of a coronary artery bypass graft surgery in the past. She denies any chest pain or shortness of breath. REVIEW OF SYSTEMS: Positive for right arm pain and negative for everything else. I did do a ten- point review of systems, and it was negative except for the arm pain. The patient denies any chest pain, shortness of breath, cough, sputum, wheezing, abdominal pain, nausea, vomiting, diarrhea, headache, blurred vision, double vision, motor weakness, numbness, or tingling. Further review of systems is negative. PHYSICAL EXAMINATION: On physical examination, the patient is alert and oriented x3. She appears in no acute distress. She is pleasant and cooperative. HEENT: Head appears atraumatic. Pupils are equal and reactive to light. Red reflexes are intact bilaterally. Extraocular muscles are intact. No conjunctival injection. Nose exhibits no rhinorrhea or epistaxis. Mouth: Mucous membranes are moist. No pharyngeal erythema. Uvula is midline and elevates. Neck is supple. Trachea is midline. No JVD or lymphadenopathy. No posterior cervical tenderness. No nuchal rigidity. Lungs are clear to auscultation in all lung pfeiffer. No adventitious sounds are noted. Cardiovascular: Heart rate and rhythm are regular without murmur. Abdomen is soft and nontender with normoactive bowel sounds x4 quadrants. No guarding or rigidity. No rebound. No palpable abdominal masses. No distention. Extremities: The patient is tender to the right upper arm with some amount of associated swelling. I see no erythema or warmth. She has a good right radial pulse. She has good sensation to light touch of all digits of both hands. Capillary refill is less than two seconds. No bony deformity or ecchymosis of the right upper arm. The tenderness is all in the right mid-humeral region. It is not the shoulder, and it is not the elbow. She moves both of those joints well. EMERGENCY DEPARTMENT COURSE AND TREATMENT: Presently, I have ordered x-rays of the right humerus and a venous duplex of the right arm to rule out DVT, and then we will reevaluate. D: Crystal Simon DO TD: 15:41 JOB #: [id number] Electronically signed by: E-Sign: Dr. Crystal Simon D.O. 10/08/17 08:30 Transcribed by: radha 09/29/2017 19:17 EMERGENCY ROOM REPORT BJ AIKENOGENE Magdalene 1 EMERGENCY REPORT Observed: 10/08/2017 Status: F Source: [facility] 8:25 AM [facility] [place] REPORT NAME NUMBER SEX AGE ADMIT DISC TYPE MED.RECORD# BJ Del Castillo [id number] F 76 09/28/17 09/28/17 E.RRoseline [id number] ROOM:ER-E DATE OF :1940 PHYSICIAN NO.:[id number] PHYSICIAN NAME:E-Sign: Dr. Crystal Simon D.O. PHYSICIAN:CHING ESTRADA [facility] PHYSICIAN: CHING ESTRADA ADDENDUM X-rays obtained of the right humerus showed no fracture or subluxation. The radiologist did read this as well. Ultrasound of the right upper arm was negative for DVT, negative for SVT. The patient was placed on ibuprofen 800 mg 1 p.o. three times daily with food. She is presently going to see pain management at [place] and she has an appointment pending. Apparently she is no longer seeing the pain management at [place]. I explained to her that this sounds to be more of a chronic type pain. I do not have any kind of bony abnormality or blood clot to explain the pain so I think that she will have to refer to pain management for further workup and consultation. The patient was discharged in clinically stable condition. Nursing notes were reviewed. DIAGNOSIS: Right arm pain, musculoskeletal. D: Crystal Simon DO TD: 17:09 JOB #: [id number] Electronically signed by: E-Sign: Dr. Crystal Simon D.O. 10/08/17 08:25 Transcribed by: nikos 09/29/2017 23:55 EMERGENCY ROOM REPORT BJ Del Castillo 1 [facility] EMERGENCY DEPARTMENT REPORT NAME NUMBER SEX AGE ADMIT DISC TYPE MED.RECORD# BJ Del Castillo [id number] F 76 09/28/17 09/28/17 E.R. [id number] ROOM:ER-E DATE OF :1940 PHYSICIAN NO.:[id number] PHYSICIAN NAME:E-Sign: Dr. Crystal Simon D.O. PHYSICIAN:CHING GEORGES PHYSICIAN: CHING ESTRADA EMERGENCY ROOM REPORT BJ Del Castillo 2 PROTHROMBIN TIME W/INR Collected: 10/04/2017 Status: F Source: [place] 11:30 AM [facility] [place] REPOSITORY TYPE CODE TESTS RESULT OUT OF RANGE REFERENCE UNITS LAB L300.4150 11.7-14.9 SECONDS High PROTIME 27.3 LAB L300.4200 Normal INR 2.7 Performed By: #### L300.3900 #### [facility] Laboratory [address] [place], [address] HUMERUS RT Observed: 09/28/2017 Status: F Source: [place] 4:43 PM [place] [address] Patient: BRITTANY LORENZO Phone#: : 1940 Age: 76 Gender: F Pt. Type: ER Account: [id number] Location: 052 Ordering: CRYSTAL SIMON Exam Date: 09/28/2017/15:35 Family Phys: OSIEL FLOWER Charge Code: [id number] Physician: Hendry Order #: [id number] DLP Dose#: PROCEDURE: X-RAY HUMERUS RT MIN 2 VIEWS COMPARISON: None. INDICATIONS: Arm pain FINDINGS: BONES: Degenerative changes are present at the acromioclavicular and glenohumeral joints. There is no evidence of acute bone abnormality. SOFT TISSUES: Negative. No visible soft tissue swelling. EFFUSION: None visible. OTHER: Negative. CONCLUSION: 1. Degenerative changes are present at the shoulder. There is no evidence of fracture. Dictated by: Marianna Stevenson MD on 09/28/2017 at 16:49 Approved by: Marianna Stevenson MD on 09/28/2017 at 16:49 CV VENOUS ARM RT Observed: 09/28/2017 Status: F [facility] [place] [address] Patient: BRITTANY LORENZO Phone#: : 1940 Age: 76 Gender: F Pt. Type: ER Account: [id number] Location: 052 Ordering: CRYSTAL SIMON Exam Date: 09/28/2017/15:47 Family Phys: OSIEL FLOWER Charge Code: [id number] Physician: Hendry Order #: [id number] DLP Dose#: PROCEDURE: VENOUS DOPPLER RT ARM COMPARISON: None. INDICATIONS: Pain TECHNIQUE: Color duplex Doppler ultrasound evaluation analysis was performed in the usual manner. AR FUEL INJECTION SERVICER RISK FACTORS FOR VENOUS DISEASE: EXAMINATION: RIGHT +Present -Reduced o Absent LEFT SPONT PHASIC AUG REFLUX COMP SPONT PHASIC AUG REFLUX COMP + + + o + JUGULAR + + + o + + + + + + SUBCL.(prox) + + + o + AXILLARY V + + + o + BRACHIAL V + CEPHALIC V + BASILIC V + + + o + RADIAL V + + + o + ULNAR V SONOGRAPHERS NOTES: FINDINGS: THROMBI: None visible. COMPRESSIBILITY: Normal. OTHER: Reflux is present in the subclavian vein. Continued Report - Page 2 of 2 Patient: NELLI LORENZOOGENE Laura Phone#: : 1940 Age: 76 Gender: F Pt. Type: ER Account: [id number] Location: 052 Ordering: CRYSTAL SIMON Exam Date: 09/28/2017/15:47 Family Phys: OSIEL FLOWER Charge Code: [id number] Physician: Hendry Order #: [id number] DLP Dose#: CONCLUSION: 1. There is no evidence of superficial or deep vein thrombus. Dictated by: Marianna Stevenson MD on 09/28/2017 at 16:35 Approved by: Marianna Stevenson MD on 09/28/2017 at 16:35 ALLERGIES ALLERGIES DATE TYPE / NAME / CODE REACTION SEVERITY SOURCE CODE 04/05/2018 Drug cephalexin Upset Stomach Unknown [place] Allergy/41 monohydrate/[id number] Community [id number]( (RXNO) [facility]) Repository 04/05/2018 Drug NSAIDS (Non-Steroidal Other Unknown [place] Allergy/41 Anti-Inflamma/R1005726 Community [id number]([facility](RXNO) [facility]) Repository 04/05/2018 Drug Penicillins/S311955003 Unknown Unknown [place] Allergy/41 (RXNORM) [facility] [id number]([facility]) Repository 04/05/2018 Drug Sulfa (Sulfonamide Rash Unknown [place] Allergy/41 Antibiotics)/E89156415 [facility] 0640842( 1(RXNORM) [facility]) Repository 04/05/2018 Drug tetracycline/C56350283 Swelling Unknown [place] Allergy/41 8(RXNORM) Community 0551471([facility]) Repository 04/05/2018 Drug doxycycline/P619401824 Swelling IA [place] Allergy/41 (RXNORM) Community 5262463([facility]) Repository 04/05/2018 Drug dicyclomine/Y075652729 Other Unknown [place] Allergy/41 (RXNORM) [facility] 6574251([facility]) Repository 07/16/2014 DRUG CEPHALEXIN Vomiting [place] INGREDI/41 Clinic Main 4000983([facility]) Repository 05/23/2014 Drug WILDA INHIBITORS COUGH [place] Class/4195 Clinic Main 89971([facility] ED CT) Repository 03/29/2013 DRUG/78282 OXYCODONE-ACETAMINOPHE GI UPSET [place] 1003([facility] Clinic Main D CT) [place] Repository 10/04/2012 Drug NSAIDS (NON-STEROIDAL [place] Class/4195 ANTI-INFLAMMATORY Clinic Main 14857([facility] DRUG) [place] ED CT) Repository 01/22/2012 DRUG DOXYCYCLINE SWELLING [place] INGREDI/41 Clinic Main 2768908([facility] [place] [place]) Repository 01/22/2011 Drug PENICILLINS RASH [place] Class/4195 Clinic Main 68075([facility] ED CT) Repository 01/22/2011 Drug SULFA (SULFONAMIDE RASH [place] Class/4195 ANTIBIOTICS) Clinic Main [address]44([facility] ED CT) Repository 01/22/2011 DRUG TETRACYCLINE RASH [place] INGREDI/41 Clinic Main 3259141([facility] CT) Repository Drug/88646 doxycycline Rash [place] 1003([facility]) System Repository Drug/30201 tetracycline Rash [place] 1003([facility]) System Repository Drug/14722 penicillin Rash [place] 1003([facility]) System Repository Drug/87278 sulfamethoxazole Rash [place] 1003([facility]) System Repository Drug/73697 dicyclomine Unknown [place] 1003([facility]) System Repository Drug/04695 NSAIDs Unknown [place] 1003([facility]) System Repository Drug SULFA Moderate [place] Allergy/41 (sulfonamide)/52267493 ([facility] 4264263(SN (RXNORM) Modifier) [facility]) (Qualifier Repository Value) Drug NSAID/97108890(RXNORM) Moderate [place] Allergy/41 ([facility] 3072343(SN Modifier) [facility]) (Qualifier Repository Value) Drug PENICILLINS Moderate [place] Allergy/41 (CLASS)/72046853(RXNOR ([facility] 0388940(SN M) Modifier) [facility]) (Qualifier Repository Value) Drug TETRACYCLINE/02091129( Moderate [place] Allergy/41 RXNORM) ([facility] 4063591(SN Modifier) [facility]) (Qualifier Repository Value) Drug MORPHINE/65517154(RXNO Moderate [place] Allergy/41 RM) ([facility] 2106062(SN Modifier) [facility]) (Qualifier Repository Value) Drug DOXYCYCLINE/99845659(R Moderate [place] Allergy/41 XNORM) ([facility] 9206749(SN Modifier) [facility]) (Qualifier Repository Value) Drug DICYCLOMINE/88794007(R Moderate [place] Allergy/41 XNORM) ([facility] 7671934(SN Modifier) [facility]) (Qualifier Repository Value) Drug ENDOCET/64916454(RXNOR Moderate [place] Allergy/41 M) ([facility] 2581166(SN Modifier) [facility]) (Qualifier Repository Value) Drug KEFLEX/00012618(RXNORM Moderate [place] Allergy/41 ) ([facility] 1275888(SN Modifier) [facility]) (Qualifier Repository Value) ENCOUNTERS ENCOUNTERS ADMIT/DISCHARGE ACCOUNT ADMITTING ENCOUNTER LOCATION SOURCE NUMBER CLASS 08/22/2018 [id number] [facility] ing:LAB Repository 07/27/2018/07/28/[id number] Repository 07/27/2018/07/27/[id number] Repository 07/18/2018/07/18/[id number] ing:LAB Repository 07/12/2018/07/12/[id number] GAB ROLLINS [facility] [place], [place] [address] C oom: ERBed: Krystyna [facility] Repository 07/12/2018/07/12/20 [id number] [facility] BRANDON [facility] Repository 06/24/2018/07/15/[id number] ing:LAB Repository 06/13/2018/06/14/20 [id number] Ambulatory [address] Repository 06/06/2018/06/07/20 [id number] Ambulatory [address] Repository 06/02/2018/06/02/[id number] GAB ROLLINS [facility] C oom: ERBed: A [facility] Repository 05/30/2018/05/31/[id number] Repository 05/30/2018/05/31/20 [id number] Ambulatory [address] Repository 05/25/2018/05/26/20 [id number] Ambulatory [address] Repository 05/18/2018/10/03/20 [id number] VEENA [facility] [place] [address] GURINDER DO oom: ERBed: [facility] Repository 05/17/2018/05/19/20 [id number] Ambulatory [address] Repository 04/26/2018/04/26/20 [id number] Ambulatory Margarita[address] ing:LAB Repository 04/24/2018/04/24/20 [id number] Ambulatory [address] Repository 04/22/2018/04/25/20 [id number] Ambulatory [address] Repository 04/12/2018/04/12/20 [id number] Ambulatory [address] Repository 04/12/2018/04/13/20 [id number] Ambulatory [address] Repository 04/12/2018/04/12/20 [id number] Ambulatory [address] ing:LAB Repository 04/05/2018/04/05/20 [id number] Ambulatory BMSBuilding:B [place] [address] Repository 03/07/2018/03/09/20 [id number] Ambulatory [address] [place] Repository 03/07/2018/03/07/20 [id number] Ambulatory [address] Repository 03/04/2018 [id number] Ambulatory [facility] Repository 03/04/2018/03/07/20 [id number] Ambulatory [address] Repository 02/22/2018/02/23/20 [id number] Ambulatory [address] Repository 02/21/2018/02/22/20 [id number] Ambulatory Margarita [place] ing:LAB Repository 02/21/2018/02/23/20 [id number] Ambulatory [address] Repository 02/04/2018/02/05/[id number] GAB ROLLINS [facility] [place] [address] C oom: ERBed: [facility] Repository 12/28/2017 [id number] Ambulatory BMSBuilding:B Marg[place] MS.[place] [facility] Repository 12/24/2017 [id number] Ambulatory [facility] ing:CR Repository 12/06/2017/12/08/19 [id number] Emergency Marg[place]ita [place] Hospital ing:ED Repository 11/24/2017/11/25/19 [id number] Ambulatory Margarita[address] Hospital ing:LAB Repository 11/24/2017/12/14/19 [id number] Ambulatory [place] Hospital ing:CR Repository 11/18/2017/11/19/19 [id number] Ambulatory BMSBuilding:B [place] [address] Repository 11/17/2017 [id number] Ambulatory BMSBuilding:B [place] [facility] Repository 11/12/2017/11/14/19 [id number] Ambulatory [address] Hospital ing:CR Repository 11/10/2017/11/11/19 [id number] Ambulatory [address] Hospital ing:LAB Repository 11/08/2017 [id number] Ambulatory BMSBuilding:B [place] [facility] Repository 11/06/2017/11/07/19 [id number] BEN NIX [facility] [place] [address] oom: ERBed: [facility] Repository 10/19/2017/10/20/19 [id number] [facility], Ambulatory [address] [facility] Repository 10/19/2017/10/20/[id number] [facility] Repository 10/13/2017/10/13/19 [id number] Ambulatory [address] Hospital ing:CR Repository 10/08/2017/10/08/19 [id number] Ambulatory [address] Repository 10/04/2017/10/04/19 [id number] Ambulatory [address] Hospital ing:LAB Repository 10/04/2017 [id number] Ambulatory [facility] Hospital ing:CR Repository 09/28/2017/02/13 [id number] CRYSTAL SIMON [facility] [place] [address] 18 DO oom: ERBed: E [facility] Repository 09/26/2017 [id number] [facility] ing:CR Repository PAYERS PAYERS ENCOUNTER GUARANTOR PAYER SUBSCRIBER SOURCE 08/22/2018 BRITTANY M Primary BRITTANY Magdalene Avila [id number] Insurance:MEDICARE BOLEYDOB: [facility] [place] A BPolicy Number: [id number] [facility] 03020Qda: [phone] [id number] Repository [phone] () Date:2001-04-16 08/22/2018 Secondary NOT GIVENUNK Margarita Insurance:SELF PAY [facility] Number: Effective Repository Date:2018-08-15 07/18/2018 BRITTANY M Primary BRITTANY Magdalene Avila [id number] Insurance:MEDICARE BOLEYDOB: [facility] [place] olicy Number: [id number] 12790Fme: [phone] [id number] Repository [phone] () Date:2001-04-16 07/18/2018 Secondary NOT GIVENUNK [place] Insurance:SELF PAY [facility] Number: Effective Repository Date:2018-07-18 07/12/2018 BRITTANY M Primary BRITTANY Ward BOLEYDOB: Insurance:MEDICARE BOLEYDOB: [facility] [id number] [place] [address] MAIN Number: N MAIN [place], [place] [id number] N[place] [id number]: Date:Plan Name: () 07/12/2018 BRITTANY M Primary BRITTANYMAXIMILIAN Ward BOLEYDOB: Insurance:MEDICARE BOLEYDOB: [facility] [id number] [place] [address] MAIN Number: N MAIN [place], [place] [id number] Nm [id number]: Date:Plan Name: () 06/24/2018 BRITTANY M Primary BRITTANY M Margarita [id number] Insurance:MEDICARE BOLEYDOB: [facility] [place] BPolicy Number: [id number] [facility] 49558Tik: (574) [id number] Repository [phone] () Date:2001-04-16 06/24/2018 Secondary NOT GIVENUNK Margarita Insurance:SELF PAY [facility] Number: Effective Repository Date:2018-05-18 06/02/2018 BRITTANY M Primary BRITTANY M Francois Ward BOLEYDOB: Insurance:MEDICARE BOLEYDOB: [facility] [id number] [place] [address] [id number] MAIN Number: N MAIN [place], [place] [id number] N[place] [id number]: Date:Plan Name: () 06/02/2018 Secondary BRITTANY M Francois Ward Insurance:MEDICARE CONFLUENCE HEALTHEYDOB: [facility] [id number] Hospital Number: N MAIN [place], Repository [id number] N[place] [id number] Date:Plan Name: 05/18/2018 BRITTANY M Primary BRITTANY M Francois Ward BOLEYDOB: Insurance:MEDICARE BOLEYDOB: [facility] [id number] [place] [address] [id number] [place] [address] MAIN Number: N MAIN [place], [place] [id number] N[place] [id number]: Date:Plan Name: () 04/26/2018 BRITTANY M Primary BRITTANY M Margarita [id number] Insurance:MEDICARE BOLEYDOB: [facility] [place] BPolicy Number: [id number] Hospital 72165Yfy: ([phone] [id number] Repository [phone] () Date:2001-04-16 04/26/2018 Secondary NOT GIVENUNK Margarita Insurance:SELF PAY [facility] Number: Effective Repository Date:2018-04-19 04/12/2018 BRITTANY M Primary BRITTANY M [place] [id number] Insurance:MEDICARE BOLEYDOB: [place] BPolicy Number: [id number] [facility] 67843Aux: (108) [id number] Repository [phone] () Date:2001-04-16 04/12/2018 Secondary NOT GIVENUNK [place] Insurance:SELF PAY [facility] Number: Effective Repository Date:2018-03-17 04/05/2018 BRITTANY M Primary BRITTANY M Margarita [id number] Insurance:MEDICARE BOLEYDOB: [facility] [place] BPolicy Number: [id number] Hospital 578[address]Bel: 330 [id number] Repository [phone] () Date:2017-11-18 04/05/2018 Secondary NOT GIVENUNK Marg[place] Insurance:SELF PAY [facility] Number: Effective Repository Date:2018-04-05 02/21/2018 BRITTANY M Primary BRITTANY M Margarita [id number] Insurance:MEDICARE BOLEYDOB: [facility] [place] BPolicy Number: [id number] 73027Zon: 330 [id number] Repository [phone] () Date:2001-04-16 02/21/2018 Secondary NOT GIVENUNK [place] Insurance:SELF PAY [facility] Number: Effective Repository Date:2017-12-14 02/04/2018 BRITTANY M Primary BRITTANY M Francois Ward BOLEYDOB: Insurance:MEDICARE BOLEYDOB: [facility] [id number] [facility] [id number] [facility] MAIN Number: N MAIN [place], [place] [id number] [place] [id number]: Date:Plan Name: () 12/28/2017 BRITTANY M Primary BRITTANY M Margarita [id number] MA[address] Insurance:MEDICARE BOLEYDOB: [place] BPolicy Number: [id number] Hospital 16750Mst: 330 [id number] Repository [phone] () Date:2017-12-28 12/28/2017 Secondary NOT GIVENUNK [place] Insurance:SELF PAY [facility] Number: Effective Repository Date:2017-12-28 12/24/2017 BRITTANY M Primary BRITTANY M [place] [id number] Insurance:MEDICARE BOLEYDOB: [place] BPolicy Number: [id number] [facility] 99367Qtb: 330 [id number] Repository [phone] () Date:2017-09-22 12/24/2017 Secondary NOT GIVENUNK [place] Insurance:SELF PAY [facility] Number: Effective Repository Date:2017-12-14 12/06/2017 BRITTANY M Primary BRITTANY M Margarita [id number] Insurance:MEDICARE BOLEYDOB: [facility] [place] BPolicy Number: [id number] Hospital 16995Jgl: 330 [id number] Repository [phone] () Date:2017-12-06 12/06/2017 Secondary NOT GIVENUNK [place] Insurance:SELF PAY [facility] Number: Effective Repository Date:2017-12-06 11/24/2017 BRITTANY M Primary BRITTANY M Margarita [id number] MA[address] Insurance:MEDICARE BOLEYDOB: [facility] [place] BPolicy Number: [id number] Hospital 47209Gyh: 330 [id number] Repository [phone] () Date:2001-04-16 11/24/2017 Secondary NOT GIVENUNK [place] Insurance:SELF PAY [facility] Number: Effective Repository Date:2017-11-15 11/24/2017 BRITTANY M Primary BRITTANY M Marg[place] [id number] Insurance:MEDICARE BOLEYDOB: [place] BPolicy Number: [id number] Hospital 74690Lic: 330 [id number] Repository [phone] () Date:2017-09-22 11/24/2017 Secondary NOT GIVENUNK [place] Insurance:SELF PAY [facility] Number: Effective Repository Date:2017-11-14 11/18/2017 BRITTANY M Primary BRITTANY M Margarita [id number] Insurance:MEDICARE BOLEYDOB: [place] BPolicy Number: [id number] Hospital 06852Nwb: 330 [id number] Repository [phone] () Date:2017-09-24 11/18/2017 Secondary NOT GIVENUNK [place] Insurance:SELF PAY [facility] Number: Effective Repository Date:2017-11-18 11/17/2017 BRITTANY M Primary BRITTANY M Margar[place] [id number] Insurance:MEDICARE BOLEYDOB: [place] BPolicy Number: [id number] Hospital 05890Btq: 330 [id number] Repository [phone] () Date:2017-11-17 11/17/2017 Secondary NOT GIVENUNK [place] Insurance:SELF PAY [facility] Number: Effective Repository Date:2017-11-17 11/12/2017 BRITTANY M Primary BRITTANY M Margarita [id number] Insurance:MEDICARE BOLEYDOB: [place] BPolicy Number: [id number] Hospital 40270Zxm: 330 [id number] Repository [phone] () Date:2017-09-22 11/12/2017 Secondary NOT GIVENUNK [place] Insurance:SELF PAY [facility] Number: Effective Repository Date:2017-10-14 11/10/2017 BRITTANY M Primary BRITTANY M Margarita [id number] Insurance:MEDICARE BOLEYDOB: [place] BPolicy Number: [id number] Hospital 22404Hai: 330 [id number] Repository [phone] () Date:2001-04-16 11/10/2017 Secondary NOT GIVENUNK [place] Insurance:SELF PAY [facility] Number: Effective Repository Date:2017-11-05 11/08/2017 Corless D Primary BRITTANY M [place] [id number] Insurance:MEDICARE BOLEYDOB: [facility] [place] A BPolicy Number: [id number] Hospital 26270Oaq: (018) [id number] Repository [phone] (HP) Date:2017-07-28 11/08/2017 Secondary NOT GIVENUNK [place] Insurance:SELF PAY [facility] Number: Effective Repository Date:2017-07-28 11/06/2017 BRITTANY M Primary BRITTANY M Francois Ward SMITHFIELDDOB: Insurance:MEDICARE CONFLUENCE HEALTHEYDOB: [facility] [id number] [facility] MAIN Number: [address] [place] [id number] [place] [id number]: Date:Plan Name: [id number] () 10/19/2017 BRITTANY M Primary BRITTANY M [facility]:MedicarePoli BOLEYDOB: [facility] N cy Number: Effective [id number] System MAIN [place], Date:2017-10-19 MA[address] [place], Repository [place] [id number] [place] [address]Mph: Name:CD:[id number] [address]Tvx: [id number], [place] () [phone]: [phone]) () 000-0000 () 10/19/2017 BRITTANY M Primary BRITTANY M [facility]ari [facility] N cy Number: Effective [id number] System MAIN [place], Date:2017-10-06 [address] [place], Repository [place] [id number] [place] [address]Vpm: Name:CD:[id number] [address]Fgv: [id number], [place] () [phone]: [phone]) (HP) 000-0000 () 10/13/2017 BRITTANY M Primary BRITTANY M [place] [id number] Insurance:MEDICARE BOLEYDOB: [facility] [place] PART A BPolicy Number: [id number] Hospital 21431Amz: (412) [id number] Repository [phone] () Date:2017-09-22 10/13/2017 Secondary NOT GIVENUNK [place] Insurance:SELF PAY [facility] Number: Effective Repository Date:2017-09-22 10/04/2017 Corless D Primary BRITTANY M [place] [id number] Insurance:MEDICARE BOLEYDOB: [facility] [place] PART A BPolicy Number: [id number] Hospital 64079Yqs: (244) [id number] Repository [phone] () Date:2001-04-16 10/04/2017 Secondary NOT GIVENUNK [place] Insurance:SELF PAY [facility] Number: Effective Repository Date:2017-08-16 10/04/2017 BRITTANY M Primary BRITTANY M [place] [id number] Insurance:MEDICARE BOLEYDOB: [facility] [place] PART A BPolicy Number: [id number] Hospital 06433Yyu: 330 [id number] Repository [phone] () Date:2017-09-22 10/04/2017 Secondary NOT GIVENUNK [place] Insurance:SELF PAY [facility] Number: Effective Repository Date:2017-09-22 09/28/2017 BRITTANY M Primary BRITTANY M Francois Ward BOLEYDOB: Insurance:MEDICARE BOLEYDOB: [facility] [id number] [facility] MAIN Number: [address] MA[address] Repository [place], [place] [id number] [place] [id number]: Date:Plan Name: [id number] () 09/26/2017 BRITTANY M Primary BRITTANY M [place] [id number] Insurance:MEDICARE SMITHFIELDDOB: [place] PART A BPolicy Number: [id number] Hospital 38805Mrz: (814) [id number] Repository [phone] () Date:2001-04-16 09/26/2017 Secondary NOT GIVENANN [place] Insurance:SELF PAY [facility] Number: Effective Repository Date:2017-09-16
== END 2018-07-18 14:00 | disposition home or self-care (01) ==
LOC: LAB 13:07
PROVIDERS: Family Provider Family Medicine; PCP Family Medicine; Referring Provider Internal Medicine Cardiovascular Disease; Visit Provider Internal Medicine Cardiovascular Disease
DX: Z79.01 Long term (current) use of anticoagulants (principal); Z86.718 Personal history of other venous thrombosis and embolism
CPT/HCPCS: 36415; 85610

== ENCOUNTER 2018-08-22 13:18 | Outpatient (RCR) | payer MEDICARE, SELFPAY ==
[2018-04-05 10:40] VITALS: BMI 37.0
[2018-08-22 14:09] LABS: International Normalized Ratio 2.1; Prothrombin Time (Protime)PT. 23.5 SECONDS (11.7-14.9)
== END 2018-08-22 14:00 | disposition home or self-care (01) ==
LOC: LAB 13:18
PROVIDERS: Family Provider Family Medicine; PCP Family Medicine; Referring Provider Internal Medicine Cardiovascular Disease; Visit Provider Internal Medicine Cardiovascular Disease
DX: Z79.01 Long term (current) use of anticoagulants (principal); Z86.718 Personal history of other venous thrombosis and embolism
CPT/HCPCS: 36415; 85610

== ENCOUNTER 2018-10-31 06:24 | Day surgery (SDC) | payer MEDICARE, SELFPAY ==
[2018-10-24 13:37] VITALS: BMI 38.2
[2018-10-31 06:52] VITALS: BP 149/60; PULSE 72; RESP 17; TEMP 36.6; O2SAT 97; BMI 37.8
[2018-10-31 06:56] LABS: Prothrombin Time Fingerstick 15.2 SEC (11.9-14.4)
--- NOTE | 2018-10-31 07:45 | RAD_ITS ---
STUDY: X-RAY - LEFT KNEE REASON FOR EXAM: Female, 77 years old. Pain, radio frequency ablation TECHNIQUE: 6 intraoperative view(s) of the knee. COMPARISON: None. FINDINGS: 6 Limited intraoperative films were performed as the patient has undergone radiofrequency ablation in the knee joint. RAD/Knee 1 or 2 Views IMPRESSION: Radiofrequency ablation of the left knee, degenerative arthrosis noted. Electronically Signed: Moris Spencer MD at 12:42 EDT , Service support ,
[2018-10-31] MEDS: Bupivacaine 0.25% 30 ML Vial (07:48)
[2018-10-31] MEDS: MethylPREDNISolone Acetate 80 MG/ML Vial (07:48)
[2018-10-31 08:06] VITALS: BP 149/60; BP 99/64; PULSE 70; RESP 14; TEMP 36.3; O2SAT 93
[2018-10-31 08:10] VITALS: BP 121/60; BP 149/60; PULSE 69; RESP 16; O2SAT 92
[2018-10-31 08:15] VITALS: BP 127/65; BP 149/60; PULSE 72; RESP 14; O2SAT 99
[2018-10-31 08:20] VITALS: BP 136/66; BP 149/60; PULSE 70; RESP 16; TEMP 37; O2SAT 96
[2018-10-31 08:49] VITALS: BP 149/60
--- NOTE | 2018-10-31 10:34 | OP.PCM_ITS ---
Problem List (1) Primary osteoarthritis of left knee Status: Chronic Report of Operation Date of Procedure: 10/31/18 Pre-Operative Diagnosis: Osteoarthritis of the left knee Post-Operative Diagnosis: Osteoarthritis of the left knee Surgery/Procedure Performed:: Left-sided radiofrequency ablation of the superior medial/superior lateral/inferior medial genicular nerves under fluoroscopic guidance Description of Surgical Findings:: PROCEDURE: Left sided radiofrequency ablation of the knee superior medial, superior lateral, inferior medial genicular nerves under fluoroscopic guidance PREOPERATIVE DIAGNOSIS: Osteoarthritis of the left knee, chronic nonoperative left knee pain POSTOPERATIVE DIAGNOSIS: Osteoarthritis of the left knee, chronic nonoperative left knee pain ANESTHESIA: MAC COMPLICATIONS: None BLOOD LOSS: Minimal PROCEDURE IN DETAIL: History and physical today was reviewed. Risks and benefits of the procedure were explained. The patient understood, agreed to our procedure, and informed consent was obtained. IV inserted per routine protocol. The patient was taken to the operating room, placed in a supine position with a pillow position underneath the left knee the left knee was prepped and draped in a sterile fashion using iodine ?3 under direct visualization fluoroscopy on AP view the left knee joint was visualized the skin and subcutaneous tissue were anesthetized with approximately 10 cc of 1% lidocaine using a 25-gauge regular needle under direct visualization fluoroscopy starting at the left superior medial ending at the left inferior medial passing through the left superior lateral genicular nerves using a 20- gauge 10 cm with a 10 mm curved active tip radiofrequency ablation needle the needle passed through the skin the tip of the needle's maneuver and directed towards the diaphyseal junction of each corresponding nerve once the tip of the needle was at the vicinity of the nerve and contact with the bone after confirmation of AP as well as lateral and oblique view the stylette of each needle was then removed after negative aspiration for blood the radiofrequency ablation probe was then inserted at each level impedance was recorded at the superior medial 221 at the superior lateral 288 at the inferior medial 232 ohm motor evoked potential was then initiated to 1.5 V without any motor response at each corresponding level the radiofrequency ablation probe was then removed after repeated negative aspiration for blood a total of 6 cc of preservative- free 1% lidocaine were injected in divided doses between those 3 levels the radiofrequency ablation probe was then reinserted after confirmation AP as well as lateral view radiofrequency ablation was then initiated to 80?C for 90 seconds at each level once concluded the probe was then removed intact and a total of 6 cc of preservative-free 0.25% Marcaine with 40 mg of Depo-Medrol were injected in divided doses between those 3 levels the needles were then removed intact patient experienced no sinus symptoms of intravascular injection patient experienced no paresthesia the procedure was completed without any apparent difficulty any complication the patient appeared to tolerate well sensory as well as motor exam was unchanged from prior to the procedure. ASSESSMENT AND PLAN: This is a 77-year-old female with osteoarthritis of the left knee, chronic nonoperative left knee pain status post left-sided radiofrequency ablation of the knee superior medial, superior lateral, inferior medial genicular nerves under fluoroscopic guidance guidance, patient will continue her current medications. The patient will follow in approximately 2 weeks for reevaluation.
== END 2018-10-31 08:57 | disposition home or self-care (01) ==
LOC: SDC 06:25 → AC 06:26
PROVIDERS: Family Provider Family Medicine; PCP Family Medicine; Referring Provider Anesthesiology Pain Medicine; Visit Provider Anesthesiology Pain Medicine
PROC: (CPT 64640; principal; 2018-10-31 07:15)
DX: M17.12 Unilateral primary osteoarthritis, left knee (principal); I25.10 Atherosclerotic heart disease of native coronary artery without angina pectoris; I10 Essential (primary) hypertension; E78.5 Hyperlipidemia, unspecified; E11.40 Type 2 diabetes mellitus with diabetic neuropathy, unspecified; I25.2 Old myocardial infarction; Z86.718 Personal history of other venous thrombosis and embolism; Z86.711 Personal history of pulmonary embolism; Z79.82 Long term (current) use of aspirin; M25.562 Pain in left knee; G89.29 Other chronic pain
CPT/HCPCS: 64640; 36416; 73560; 76000; 85610; J7120

== ENCOUNTER 2018-11-11 13:09 | Outpatient (RCR) | payer MEDICARE, SELFPAY ==
[2018-04-05 10:40] VITALS: BMI 37.0
[2018-10-15 10:10] LABS: International Normalized Ratio 2.1; Prothrombin Time (Protime)PT. 23.5 SECONDS (11.7-14.9)
[2018-10-15 10:16] LABS: AST(SGOT) 19 U/L (15-37); Alanine Aminotransfer ALT/SGPT 20 U/L (13-56); Albumin, Serum 3.6 g/dL (3.2-5.0); Alkaline Phosphatase 75 U/L (45-117); Bilirubin, Direct 0.17 mg/dL (0.00-0.30); Cholesterol 170 mg/dL (200); Globulin 3.7 g/dL (2.2-4.2); High Density Lipoprotein 61 mg/dL; Protein, Total 7.3 g/dL (6.4-8.2); Triglycerides 114 mg/dL; Very Low Density Lipoprotein 23 mg/dL (5-40)
[2018-10-27 15:09] LABS: International Normalized Ratio 1.7; Prothrombin Time (Protime)PT. 19.6 SECONDS (11.7-14.9)
[2018-11-02 14:56] LABS: International Normalized Ratio 1.1; Prothrombin Time (Protime)PT. 14.3 SECONDS (11.7-14.9)
[2018-11-04 13:46] LABS: International Normalized Ratio 1.6; Prothrombin Time (Protime)PT. 18.7 SECONDS (11.7-14.9)
[2018-11-07 15:48] LABS: Prothrombin Time (Protime)PT. 22.2 SECONDS (11.7-14.9)
[2018-11-11 13:37] LABS: International Normalized Ratio 1.9; Prothrombin Time (Protime)PT. 21.8 SECONDS (11.7-14.9)
== END 2018-11-11 13:25 | disposition home or self-care (01) ==
LOC: LAB 13:09
PROVIDERS: Physician Assistant Medical; Family Provider Family Medicine; PCP Family Medicine; Referring Provider Internal Medicine Cardiovascular Disease; Visit Provider Internal Medicine Cardiovascular Disease
DX: I25.10 Atherosclerotic heart disease of native coronary artery without angina pectoris (principal); I10 Essential (primary) hypertension; E78.00 Pure hypercholesterolemia, unspecified; Z79.01 Long term (current) use of anticoagulants; Z86.718 Personal history of other venous thrombosis and embolism
CPT/HCPCS: 36415; 80061; 80076; 85610

== ENCOUNTER 2018-12-13 13:49 | Outpatient (RCR) | payer MEDICARE, SELFPAY ==
[2018-11-21 14:42] LABS: International Normalized Ratio 2.2; Prothrombin Time (Protime)PT. 24.2 SECONDS (11.7-14.9)
[2018-12-13 15:35] LABS: International Normalized Ratio 2.1; Prothrombin Time (Protime)PT. 23.8 SECONDS (11.7-14.9)
== END 2018-12-13 16:00 | disposition home or self-care (01) ==
LOC: LAB 13:49
PROVIDERS: Family Provider Family Medicine; PCP Family Medicine; Referring Provider Internal Medicine Cardiovascular Disease; Visit Provider Internal Medicine Cardiovascular Disease
DX: Z79.01 Long term (current) use of anticoagulants (principal); Z86.718 Personal history of other venous thrombosis and embolism
CPT/HCPCS: 36415; 85610

== ENCOUNTER 2019-01-20 12:37 | Outpatient (RCR) | payer MEDICARE, SELFPAY ==
[2019-01-20 13:53] LABS: International Normalized Ratio 2.6; Prothrombin Time (Protime)PT. 28.1 SECONDS (11.7-14.9)
== END 2019-01-20 13:00 | disposition home or self-care (01) ==
LOC: LAB 12:37
PROVIDERS: Family Provider Family Medicine; PCP Family Medicine; Referring Provider Internal Medicine Cardiovascular Disease; Visit Provider Internal Medicine Cardiovascular Disease
DX: Z79.01 Long term (current) use of anticoagulants (principal); Z86.718 Personal history of other venous thrombosis and embolism; M17.12 Unilateral primary osteoarthritis, left knee; M25.562 Pain in left knee; M54.9 Dorsalgia, unspecified
CPT/HCPCS: 36415; 85610; 97035; 97110

== ENCOUNTER 2019-01-30 14:30 | Outpatient (RCR) | payer MEDICARE, SELFPAY ==
--- NOTE | 2019-01-11 14:25 | HP.PTEVAL ---
Patient's Visit Information RIP LORENZO is a 78 year old F referred to Physical Therapy by Tex Lazo MD with a diagnosis of Knee Pain. Date of Evaluation: 01/11/19 Physical Therapist: Cordelia Oconnor DPT - Visit Plan Frequency: 2x /Week Duration: 4 Weeks Plan: Focus on LE and core strength/stabilization- US as modality- may need to focus on seated and supine exercises - Subjective Findings: Left knee pain for a long time- bone on bone. The pain is always in the knee- the weather really makes it hurt and when she relaxes in bed it also hurts. She sleeps with a pillow between her knees. Dr. Encarnacion wants to see if PT can do anything. She reports that she had the nerves burned and an injection. She went to [facility] and they are against her having a TKR and they think she has to many comorbidities. Patient reports that she is sedentary- and her and family does most of the housework. She has a liftchair that she sits in most of the time. Uses a walker at night time but not anytime else. Her knee feels like its going to buckle. Fully I with ADL's- dressing, driving and bathing but her does most of the driving. Does not walk very far at all- normally uses a wheelchair when she does any distances. The pool is to hot for her to get into. The back pain is in the lower back and she has been to Dr. Reyna and he did injections- but she is no longer going there- thinks that the knee pain is more of an issue. Sleep: not disturbed- sleeps in bed- takes Masterson before she goes to bed. Nothing eases her pain. She reports no falls but is prone to blood clots. Her knee pain is always an 8/10 - pain is located along the medial joint line. Pain radiates to the wilhelm and to the hip. Describes the pain as shooting and then also achy. - Objective Posture: FH, RS, increased kyphosis. Sit to Stand: bilateral UE- requires increased time to stand-once standing takes a few seconds before she was able to take her first steps. Gait: antalgic- decreased stance time on the left with poor heel/toe pattern. SLS: unable but will weight shift. HR/TR: able seated but unable standing. Palpation: tender along medial joint line and posterior knee. ROM: 0-90 degrees with pain at end ranges. Observation: moderate edema in ankles bilaterally. Strength: Ankle: 4+/5, Knee: 4/5, Hip: 4-/5 throughout Core: poor. Flex: HS: moderate, Gastroc: moderate - Goals Goal 1:: Patient will be I with HEP and progression Goal Time Frame: 4-6 Weeks Goal 2:: Patient will ambulate >300 feet with LRD and normalized gait pattern Goal Time Frame: 4-6 Weeks Goal 3:: Patient will demo 4+/5 strength in LE Goal Time Frame: 4-6 Weeks Goal 4:: Patient will maintain proper posture t/o tx session to demo increased core s/s. Goal Time Frame: 4-6 Weeks - Rehabilitation Potential Physical Therapy Diagnosis: Patient presents with hypomobility- she has decreased ROM, strength, flex and muscular endurance leading to abnormal gait pattern and increased pain with ADL's. Rehabilitation Potential: Poor - Anticipated Interventions Patient/Client Instruction: Educate patient on: Benefits of Fitness Program Therapeutic Exercise to Include: Strength training, Endurance training, Balance training, Body mechanics, Postural training, Flexibilty training, Passive ROM, Active ROM, Dynamic Lumbar Stabilization For the Purpose of:: To improve muscle performance and motor function Functional Training to Include: Gait training TENS: Yes Cryotherapy (ice pack, ice massage): Yes Thermo therapy (hot pack): Yes Ultrasound (thermal/non thermal): Yes For the Purpose of:: To decrease pain Thank you for the opportunity to evaluate your patient. For Medicare and Medicare HMO plans, please review the plan of care and approve it. It will need to be FAXED BACK to us at [phone] for Medicare purposes. For Medicare only, by signing this I certify the plan of care. Please let me know if there are questions or concerns regarding this plan of care. Physician Signature: Date:
--- NOTE | 2019-04-18 11:34 | HP.PT.NRP ---
HP - Discharge Summary (1) - Patient Information RIP LORENZO was seen in my office for initial evaluation on 01/11/19. The following Plan of Care was established for this patient: Initial Frequency: 2x /Week Initial Duration: 4 Weeks - Anticipated Interventions Patient/Client Instruction: Educate patient on: Benefits of Fitness Program Therapeutic Exercise to Include: Strength training, Endurance training, Balance training, Body mechanics, Postural training, Flexibilty training, Passive ROM, Active ROM, Dynamic Lumbar Stabilization For the Purpose of:: To improve muscle performance and motor function Functional Training to Include: Gait training TENS: Yes Cryotherapy (ice pack, ice massage): Yes Thermo therapy (hot pack): Yes Ultrasound (thermal/non thermal): Yes For the Purpose of:: To decrease pain This patient was last seen in our office . Pertinent comments regarding their Physical therapy will appear below: Patient following up with pain mgmt. Appropriate to be d/c At this point I will be discontinuing this patient from physical therapy. I would be happy to see this patient again in the future if found appropriate by the physician. Thank you! Cordelia Oconnor DPT
== END 2019-01-30 19:00 | disposition home or self-care (01) ==
LOC: PT 14:30
PROVIDERS: Family Provider Family Medicine; PCP Family Medicine; Referring Provider Anesthesiology Pain Medicine; Visit Provider Anesthesiology Pain Medicine
DX: M17.12 Unilateral primary osteoarthritis, left knee (principal); M25.562 Pain in left knee; M54.9 Dorsalgia, unspecified
CPT/HCPCS: 97035; 97110; 97161

== ENCOUNTER 2019-02-19 15:00 | Emergency (ER) | payer MEDICARE, SELFPAY ==
[2019-02-19 15:01] VITALS: BP 138/69; PULSE 79; RESP 18; TEMP 37.4; O2SAT 97; BMI 38.1
--- NOTE | 2019-02-19 15:45 | ED.DCSUM_ITS ---
History of Present Illness Chief Complaint: Back Detail of Chief Complaint: Acute on chronic back pain Informant: Patient, Family Onset: Yesterday Timing: Waxes and wanes Quality: Tightness Location: Lower back Current Severity: Mild Maximum Severity: Moderate Worsened by: Movement Narrative: Patient has a history of chronic back and left knee pain. She is currently in pain management takes [place] twice daily. She states yesterday she picked up her walker with a try on it to step down into the living room and felt something pull in the left side of her lower back. She has worsened pain today. She tried [place] and Zanaflex at home without improvement. She denies the pain radiates to her leg. There was no fall or direct injury. 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 (7) Obesity Status: Chronic (8) Primary osteoarthritis of left knee Status: Chronic (9) Pure hypercholesterolemia Status: Chronic (10) Systolic CHF, chronic Status: Chronic (11) NSTEMI (non-ST elevated myocardial infarction) Status: Resolved Comment: 03/01 Past Medical History - Allergies and Home Meds Allergies/Adverse Reactions: Allergies Sulfa (Sulfonamide Antibiotics) Allergy (Verified 02/19/19 15:07) Rash doxycycline Adverse Reaction (Mild, Verified 02/19/19 15:07) Swelling cephalexin monohydrate [From Keflex] Adverse Reaction (Verified 02/19/19 15:07) Upset Stomach dicyclomine Adverse Reaction (Verified 02/19/19 15:07) Other NSAIDS (Non-Steroidal Anti-Inflamma Adverse Reaction (Verified 02/19/19 15:07) Other Penicillins Adverse Reaction (Verified 02/19/19 15:07) Unknown tetracycline [Tetracycline] Adverse Reaction (Verified 02/19/19 15:07) Swelling Primary Care Physician: Osiel Arzola MD [Primary Care Provider] - Prior records reviewed: Yes Past Medical History: - - Reviewed Surgical History: appendectomy, cholecystectomy, coronary bypass surgery - 2002, hysterectomy, - - Breast reduction, right knee partial replacement, left knee repair, perforated bowel repair. Lives: Alone Smoking Status: Never smoker - Family History Maternal Family History: Family History (Last Reviewed 10/24/18 @ 13:39 by Bre Bone) Mother Myocardial infarction Hypertension Heart disease History of coronary artery bypass graft Brother Hypertension History of coronary artery bypass graft Father Cancer Family History: Reports: Heart Disease, Hypertension Paternal Family History: Family History (Last Reviewed 10/24/18 @ 13:39 by Bre Bone) Mother Myocardial infarction Hypertension Heart disease History of coronary artery bypass graft Brother Hypertension History of coronary artery bypass graft Father Cancer Family History: Reports: Cancer Review of Systems General: Denies: Chills, Fever Cardiovascular: Denies: Chest pain, Palpitations, Heart racing Respiratory: Denies: Dyspnea, Cough Gastrointestinal: Reports: - - Abdomen feels bloated.. Denies: Abdominal pain, Nausea, Vomiting, Diarrhea Genitourinary: Denies: Dysuria, Hematuria, Frequency Musculoskeletal: Reports: Back pain. Denies: Extremity Pain Neurological: Denies: Headache, Weakness, Parasthesia Physical Exam Vital Signs/Narrative: Vital Signs Temp Pulse Resp BP Pulse Ox 02/19/19 15:01 99.3 F H 79 18 138/69 H 97 General: Well nourished, Well developed Eyes: [place] ENT: Moist mucous membranes Cardiovascular: Regular rate, Regular rhythm, Murmur Respiratory: No distress, CTA bilaterally Abdomen: Soft, Nontender, Hypoactive bowel sounds Back: Spinal tenderness, - - Tenderness to palpation in the lower lumbar midline and left paraspinals. Straight leg raise is negative. Extremities: Nontender Skin: Normal color, No rash Neurological: Alert, Oriented x3 Psychological: Normal affect Diagnostic/Tx/Re-eval Laboratory Tests 02/19/19 02/19/19 02/19/19 Range/Units 16:12 16:12 16:12 WBC 7.4 (4.4-11.0) K/mm3 RBC 3.81 L (4.2-5.4) M/mm3 Hgb 11.1 L (12.0-15.0) g/dl Hct 35.3 L (37-47) % MCV 92.7 (81-99) fL MCH 29.1 (27.0-32.0) pg MCHC 31.4 L (32-36) g/gl RDW 14.8 H (11.6-14.6) % RDW Differential 50.4 H (35.1-43.9) fl Plt Count 140 L (150-450) K/mm3 MPV 11.5 (6.2-12.0) fl Immature Gran % (Auto) 0.100 (0.0-0.9) % Neut % (Auto) 57.1 (47-70) % Lymph % (Auto) 34.8 (19-41) % [place] % (Auto) 6.7 (0-10) % Eos % (Auto) 1.2 (0-5) % Baso % (Auto) 0.1 (0-1) % Absolute Neuts (auto) 4.2 (2.0-7.7) X10^3/uL Absolute Lymphs (auto) 2.58 (0.83-4.51) X10^3/ul Total Counted Not Reportable PT 28.2 H (11.7-14.9) SECONDS INR 2.6 Sodium 139 (136-145) mmol/L Potassium 3.8 (3.5-5.1) mmol/L Chloride 105 (98-107) mmol/L Carbon Dioxide 30.0 (21.0-32.0) mmol/L Anion Gap 4 L (5-15) BUN 15 (7-18) mg/dL Creatinine 0.95 (0.55-1.02) mg/dL Estim Creat Clear Calc 42.50 ml/min Est GFR (MDRD) Af Amer 73 (>60) mL/min Est GFR (MDRD) Non-Af 60 (>60) mL/min BUN/Creatinine Ratio 15.8 (10-20) RATIO Glucose 129 H (74-106) mg/dL Calcium 9.1 (8.5-10.1) mg/dL - Medical Decision Making Patient was initially given morphine and Zofran for her pain. Unfortunately, because of an busy emergency room was unable to reevaluate her quickly. When I went back to recheck her she stated that her pain had been improved but was now starting to return again. She was given a second dose of morphine was able to get up and ambulate the emergency room. She is given 6 tabs of Percocet that she can use over the next 2 days for pain in place of her [place]. She was given exact instructions on this. ED Disposition - Plan for ED Patient: Disposition: Home or Assisted Living Diagnosis: Acute exacerbation of chronic low back pain Instructions: Back Sprain/Strain Prescriptions: Oxycodone HCl/Acetaminophen [Percocet 5/325] 1 tab PO Q6H PRN PRN 2 Days #6 tab PRN Reason: Pain Prescription Printed Referrals: Osiel Arzola MD [Primary Care Provider] - Additional Instructions: You can take Percocet in place of [place], but do not take them together.
[2019-02-19] MEDS: Ondansetron 4 MG/2 ML Vial IV (16:21)
[2019-02-19] MEDS: Morphine 4 MG/ML Syringe IV ×2 (16:21→18:36)
[2019-02-19 16:30] LABS: Absolute Lymphocyte Count 2.58 X10^3/ul (0.83-4.51); Absolute Neutrophil Count 4.2 X10^3/uL (2.0-7.7); Basophil# 0.01 X10^3/uL; Basophil% 0.1 % (0-1); Eosinophil# 0.09 X10^3/uL; Eosinophils% 1.2 % (0-5); Hematocrit 35.3 % (37-47); Hemoglobin 11.1 g/dl (12.0-15.0); Lymphocyte # 2.58 X10^3/ul (4.0); Lymphocyte % 34.8 % (19-41); Mean Corp Hgb Conc 31.4 g/gl (32-36); Mean Corpuscular Hgb 29.1 pg (27.0-32.0); Mean Corpuscular Volume 92.7 fL (81-99); Mean Platelet Vol. 11.5 fl (6.2-12.0); Monocyte% 6.7 % (0-10); Neutrophil # 4.22 X10^3/uL (2.7-7.7); Neutrophil % 57.1 % (47-70); POSITIVE COUNT NO; POSITIVE DIFFERENTIAL NO; POSITIVE MORPHOLOGY NO; Platelet Count 140 K/mm3 (150-450); RBC Distribution Width CV 14.8 % (11.6-14.6); RBC Distribution Width SD 50.4 fl (35.1-43.9); Red Blood Count 3.81 M/mm3 (4.2-5.4); White Blood Count 7.4 K/mm3 (4.4-11.0)
[2019-02-19 16:39] LABS: Anion Gap 4 (5-15); BUN 15 mg/dL (7-18); BUN/Creat Ratio 15.8 RATIO (10-20); Calcium,Total 9.1 mg/dL (8.5-10.1); Chloride 105 mmol/L (98-107); Creatinine, Serum 0.95 mg/dL (0.55-1.02); EST Glomerular Filtration Rate 60 mL/min (>60); Est Glom Filt Rate - Afr Amer 73 mL/min (>60); Glucose 129 mg/dL (74-106); Potassium 3.8 mmol/L (3.5-5.1); Sodium Level 139 mmol/L (136-145)
[2019-02-19 16:52] LABS: International Normalized Ratio 2.6; Prothrombin Time (Protime)PT. 28.2 SECONDS (11.7-14.9)
[2019-02-19 17:39] VITALS: BP 110/56; PULSE 68; RESP 18; O2SAT 95
== END 2019-02-19 20:48 | disposition home or self-care (01) ==
PROVIDERS: Emergency Provider Emergency Medicine; Family Provider Family Medicine; PCP Family Medicine
DX: M54.9 Dorsalgia, unspecified (principal); G89.29 Other chronic pain; M54.5 Low back pain; I11.0 Hypertensive heart disease with heart failure; I25.2 Old myocardial infarction; I50.22 Chronic systolic (congestive) heart failure; E78.00 Pure hypercholesterolemia, unspecified; E66.9 Obesity, unspecified; M17.12 Unilateral primary osteoarthritis, left knee; I25.5 Ischemic cardiomyopathy; E11.9 Type 2 diabetes mellitus without complications; Z79.01 Long term (current) use of anticoagulants; Z95.1 Presence of aortocoronary bypass graft; Z88.1 Allergy status to other antibiotic agents; Z88.2 Allergy status to sulfonamides; Z88.6 Allergy status to analgesic agent
CPT/HCPCS: 80048; 85025; 85610; 96374; 96375; 96376; 99285; A4216; J2405

== ENCOUNTER 2019-02-27 21:08 | Observation (INO) | payer MEDICARE, SELFPAY ==
[2019-02-27 21:10] VITALS: BP 147/78; PULSE 88; RESP 22; TEMP 36.6; O2SAT 93; BMI 36.7
--- NOTE | 2019-02-27 21:14 | ED.RN ---
CALLED FOR EKG PER PROTOCOL, PULLED OLD EKGS FOR
[2019-02-27 21:31] VITALS: BP 147/77; PULSE 75; RESP 12; O2SAT 98
--- NOTE | 2019-02-27 21:39 | EKG12_ITS ---
Test Reason : CP Blood Pressure : / mmHG Vent. Rate : 085 BPM Atrial Rate : 085 BPM P-R Int : 162 ms QRS Dur : 128 ms QT Int : 406 ms P-R-T Axes : 061 -22 014 degrees QTc Int : 483 ms Sinus rhythm with Premature supraventricular complexes Left bundle branch block Abnormal ECG Confirmed by KALE YADAV, MISTY ([id number]), acquisition editor TERESA FERGUSON ([id number]) on 03/01/2019 11:38:51 AM Referred By: Nam Robertson Confirmed By:MISTY HENLEY MD
--- NOTE | 2019-02-27 21:40 | ED.VIS.GEN ---
History of Present Illness Chief Complaint: Chest Pain Detail of Chief Complaint: Chest pain and back spasms Informant: Patient Onset: Today Current Severity: Mild Maximum Severity: Moderate Narrative: Patient presents with continued back spasms. She was seen here on the seventh after stepping down from a step and twisting her back. She states x-rays later showed a fracture. She is currently on [place]. She states today she developed left chest pain that lasted approximately 1 hour and is currently resolved. She does have a history of coronary disease with 6 vessel bypass surgery. She is on Coumadin for history of DVT. - Past Medical History (1) LBBB (left bundle branch block) Status: Acute (2) Aortocoronary bypass status Status: Chronic Comment: CABG x6- Sequential SVG in Sequence to the LAD, Descending Diagonal, CX/CX, and RCA/RCA 10/09/02 (3) Atherosclerosis of coronary artery bypass graft(s), unspecified, with other forms of angina pectoris Status: Chronic Comment: CABG x6- Sequential SVG in Sequence to the LAD, Descending Diagonal, CX/CX, and RCA/RCA 10/09/02 (4) Benign hypertension Status: Chronic (5) Diabetes mellitus, type 2 Status: Chronic (6) Ischemic cardiomyopathy Status: Chronic (7) Obesity Status: Chronic (8) Primary osteoarthritis of left knee Status: Chronic (9) Pure hypercholesterolemia Status: Chronic (10) Systolic CHF, chronic Status: Chronic (11) Thromboembolic disorder Status: Chronic (12) NSTEMI (non-ST elevated myocardial infarction) Status: Resolved Comment: 03/01 Past Medical History - Allergies and Home Meds Allergies/Adverse Reactions: Allergies Sulfa (Sulfonamide Antibiotics) Allergy (Verified 02/27/19 21:17) Rash doxycycline Adverse Reaction (Mild, Verified 02/27/19 21:17) Swelling cephalexin monohydrate [From Keflex] Adverse Reaction (Verified 02/27/19 21:17) Upset Stomach dicyclomine Adverse Reaction (Verified 02/27/19 21:17) Other NSAIDS (Non-Steroidal Anti-Inflamma Adverse Reaction (Verified 02/27/19 21:17) Other Penicillins Adverse Reaction (Verified 02/27/19 21:17) Unknown tetracycline [Tetracycline] Adverse Reaction (Verified 02/27/19 21:17) Swelling Doctors: Dr. Patricia Prior records reviewed: Yes Past Medical History: - - Reviewed Surgical History: appendectomy, cholecystectomy, coronary bypass surgery - 2002, hysterectomy, - - Breast reduction, right knee partial replacement, left knee repair, perforated bowel repair. Smoking Status: Never smoker - Family History Maternal Family History: Family History (Last Reviewed 10/24/18 @ 13:39 by Bre Bone) Mother Myocardial infarction Hypertension Heart disease History of coronary artery bypass graft Brother Hypertension History of coronary artery bypass graft Father Cancer Family History: Reports: Heart Disease, Hypertension Paternal Family History: Family History (Last Reviewed 10/24/18 @ 13:39 by Bre Bone) Mother Myocardial infarction Hypertension Heart disease History of coronary artery bypass graft Brother Hypertension History of coronary artery bypass graft Father Cancer Family History: Reports: Cancer Review of Systems General: Denies: Chills, Fever Cardiovascular: Reports: Chest pain Respiratory: Denies: Dyspnea, Cough Gastrointestinal: Denies: Abdominal pain, Nausea, Vomiting Musculoskeletal: Reports: Back pain Neurological: Denies: Headache Physical Exam Vital Signs/Narrative: Vital Signs Temp Pulse Resp BP Pulse Ox 02/27/19 21:31 75 12 147/77 H 98 02/27/19 21:10 97.9 F 88 22 H 147/78 H 93 General: Well nourished, Well developed ENT: Moist mucous membranes Cardiovascular: Regular rate, Regular rhythm Respiratory: No distress, CTA bilaterally Abdomen: Soft, Nontender Back: - - Tenderness palpation the lumbar region. Skin: Normal color, No rash Neurological: Alert, Oriented x3 Psychological: - - Anxious Diagnostic/Tx/Re-eval Impressions Chest X-Ray 02/27/19 21:42 IMPRESSION: Previous cardiothoracic surgery Stable mild cardiomegaly New linear left perihilar and left lower lobe subsegmental atelectasis versus mild pulmonary infiltrates Electronically Signed: Charanjit Pressley, at 21:58 EDT Tel , Service support , 02/27/19 21:42 Chest 1 View (Portable) [RAD] Stat Laboratory Results 02/27/19 02/27/19 02/27/19 21:20 21:20 21:20 WBC 9.5 RBC 4.26 Hgb 12.5 Hct 38.3 MCV 89.9 MCH 29.3 MCHC 32.6 RDW 15.1 H RDW Differential 49.3 H Plt Count 204 MPV 11.5 Immature Gran % (Auto) 0.500 Neut % (Auto) 51.6 Lymph % (Auto) 38.0 [place] % (Auto) 8.7 Eos % (Auto) 1.1 Baso % (Auto) 0.1 Absolute Neuts (auto) 4.9 Absolute Lymphs (auto) 3.60 PT 23.4 H INR 2.1 Sodium 138 Potassium 3.9 Chloride 103 Carbon Dioxide 27.0 Anion Gap 8 BUN 23 H Creatinine 1.18 H Estim Creat Clear Calc 34.22 Est GFR (MDRD) Af Amer 57 L Est GFR (MDRD) Non-Af 47 L BUN/Creatinine Ratio 19.5 Glucose 144 H Calcium 9.1 Troponin I < 0.015 - EKG Initial EKG Interpretation: Sinus Rhythm, - - Sinus with left bundle branch block. PAC noted. - Medical Decision Making Patient presents with approximate 1 hour of chest pain resolved shortly before my evaluation. She has known history of cardiac disease. She also has continued back pain with spasm. On repeat examination patient is comfortable as long as she does not move. She is had no recurrence of chest pain. With her significant cardiac history I have recommended hospitalization overnight for cycling of cardiac enzymes. She also needs better pain management for her back pain and spasms. She is scheduled for an MRI later this week. I advised her she may or may not get that while in the hospital. ED Disposition - Plan for ED Patient: Disposition: Acute Care Hospital [facility] Diagnosis: Chest pain, Back pain, Back spasm
--- NOTE | 2019-02-27 21:42 | RAD_ITS ---
STUDY: X-RAY CHEST REASON FOR EXAM: Female, 78 years old. Chest pain TECHNIQUE: Portable chest COMPARISON: 12/06/2017 FINDINGS: There are sternal wires. There is no demonstrated pleural abnormality. There is stable mild cardiomegaly. There is linear left perihilar and left lower lobe mild pulmonary opacities.. Normal mediastinum and pranay. Normal visualized pulmonary arteries. Normal visualized aortic arch and descending thoracic aorta. Normal visualized thoracic spine. Normal visualized ribs, clavicles, and shoulders. There is no demonstrated abnormality of the visualized soft tissue structures of the upper abdomen. RAD/Chest 1 View (Portable) IMPRESSION: Previous cardiothoracic surgery Stable mild cardiomegaly New linear left perihilar and left lower lobe subsegmental atelectasis versus mild pulmonary infiltrates Electronically Signed: Charanjit Pressley, at 21:58 EDT Tel , Service support ,
[2019-02-27 21:55] LABS: Absolute Neutrophil Count 4.9 X10^3/uL (2.0-7.7); Basophil# 0.01 X10^3/uL; Basophil% 0.1 % (0-1); Eosinophils% 1.1 % (0-5); Hematocrit 38.3 % (37-47); Hemoglobin 12.5 g/dl (12.0-15.0); Mean Corp Hgb Conc 32.6 g/gl (32-36); Mean Corpuscular Hgb 29.3 pg (27.0-32.0); Mean Corpuscular Volume 89.9 fL (81-99); Mean Platelet Vol. 11.5 fl (6.2-12.0); Monocyte# 0.82 X10^3/uL; Monocyte% 8.7 % (0-10); Neutrophil # 4.89 X10^3/uL (2.7-7.7); Neutrophil % 51.6 % (47-70); Platelet Count 204 K/mm3 (150-450); RBC Distribution Width CV 15.1 % (11.6-14.6); RBC Distribution Width SD 49.3 fl (35.1-43.9); Red Blood Count 4.26 M/mm3 (4.2-5.4); White Blood Count 9.5 K/mm3 (4.4-11.0)
[2019-02-27 21:56] LABS: International Normalized Ratio 2.1; Prothrombin Time (Protime)PT. 23.4 SECONDS (11.7-14.9)
[2019-02-27 21:57] LABS: POSITIVE COUNT NO; POSITIVE DIFFERENTIAL NO; POSITIVE MORPHOLOGY NO
[2019-02-27 22:06] LABS: Anion Gap 8 (5-15); BUN 23 mg/dL (7-18); BUN/Creat Ratio 19.5 RATIO (10-20); Calcium,Total 9.1 mg/dL (8.5-10.1); Chloride 103 mmol/L (98-107); Creatinine, Serum 1.18 mg/dL (0.55-1.02); EST Glomerular Filtration Rate 47 mL/min (>60); Est Glom Filt Rate - Afr Amer 57 mL/min (>60); Estimated Creatinine Clearance 34.22 ml/min; Glucose 144 mg/dL (74-106); Potassium 3.9 mmol/L (3.5-5.1); Sodium Level 138 mmol/L (136-145)
[2019-02-27 22:09] VITALS: BP 163/75; PULSE 77; RESP 15; O2SAT 99
[2019-02-27] MEDS: 0.9% Normal Saline 1,000 ML 15 ML IV (22:23)
[2019-02-27] MEDS: Morphine 4 MG/ML Syringe IV (22:23)
[2019-02-27] MEDS: Ondansetron 4 MG/2 ML Vial IV (22:24)
[2019-02-27 23:00] VITALS: BP 158/76; PULSE 73; RESP 20; O2SAT 98
--- NOTE | 2019-02-27 23:43 | PCM.HP.STD ---
Problem List (1) Chest pain Status: Acute (2) Back pain Status: Acute History of Present Illness Date of Admission: 02/27/19 Chief Complaint: chest pain The patient is a 78 year old F with a significant history of CAD s/p CABG X 6; HTN; DM 2; Ischemic Cardiomyopathy who presented to emergency department with left-sided chest pain. He describes a left chest pain as not severe. She is unable to describe the quality of her pain. Her pain was persistent but it was relieved with nitroglycerin and aspirin that was given by the paramedics. She denies any vomiting or diaphoresis. However she has nausea that she thinks is not only associated with her chest pain. Reportedly the patient was told that she is not a candidate for any further stress test by cardiology. Importantly patient has back pain and has been diagnosed with lumbar fracture. Patient is scheduled to have MRI of her back on 03-03 because of the back pain. She reported that she has nausea that is associated with her back pain. She denies any bowel or bladder changes. Her pain regimen at home is not sufficient to control her back pain. She describes her back pain as spasms and severe. Past Medical History Past Medical History (Chronic Problems): Chronic Problems (Last Reviewed 02/28/19 @ 03:48 by Nam Robertson MD) Primary osteoarthritis of left knee (Chronic) Pure hypercholesterolemia (Chronic) Aortocoronary bypass status (Chronic ~10/09/02) CABG x6- Sequential SVG in Sequence to the LAD, Descending Diagonal, CX/CX, and RCA/RCA 10/09/02 Atherosclerotic heart disease of [place] coronary artery without angina pectoris (Chronic) Atherosclerosis of coronary artery bypass graft(s), unspecified, with other forms of angina pectoris (Chronic) CABG x6- Sequential SVG in Sequence to the LAD, Descending Diagonal, CX/CX, and RCA/RCA 10/09/02 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 (Chronic) 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 (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) Benign hypertension (Chronic) Obesity (Chronic) Diabetes mellitus, type 2 (Chronic) Systolic CHF, chronic (Chronic) Thromboembolic disorder (Chronic) Ischemic cardiomyopathy (Chronic) Medical History: Medical History (Last Reviewed 02/28/19 @ 07:17 by Nam Robertson MD) Pure hypercholesterolemia (Chronic) E78.00 LBBB (left bundle branch block) (Acute) I44.7 Atherosclerotic heart disease of [place] coronary artery without angina pectoris (Chronic) I25.10 Atherosclerosis of coronary artery bypass graft(s), unspecified, with other forms of angina pectoris (Chronic) I25.708 CABG x6- Sequential SVG in Sequence to the LAD, Descending Diagonal, CX/CX, and RCA/RCA 10/09/02 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 (Chronic) R09.89 [facility] current use of anticoagulant (Chronic) Z79.01 NSTEMI (non-ST elevated myocardial infarction) (Resolved) I21.4 03/01 Benign hypertension (Chronic) I10 Obesity (Chronic) E66.9 Diabetes mellitus, type 2 (Chronic) E11.9 Systolic CHF, chronic (Chronic) I50.22 Thromboembolic disorder (Chronic) I74.9 Ischemic cardiomyopathy (Chronic) I25.5 Abnormal stress test R94.39 History of DVT (deep vein thrombosis) Z86.718 GERD (gastroesophageal reflux disease) K21.9 History of esophageal stricture Z87.19 History of pulmonary embolism Z86.711 History of left heart catheterization Z98.890 03/19/14 Hyperlipidemia (Inactive) E78.5 Allergies Sulfa (Sulfonamide Antibiotics) Allergy (Verified 02/27/19 21:17) Rash doxycycline Adverse Reaction (Mild, Verified 02/27/19 21:17) Swelling cephalexin monohydrate [From Keflex] Adverse Reaction (Verified 02/27/19 21:17) Upset Stomach dicyclomine Adverse Reaction (Verified 02/27/19 21:17) Other NSAIDS (Non-Steroidal Anti-Inflamma Adverse Reaction (Verified 02/27/19 21:17) Other Penicillins Adverse Reaction (Verified 02/27/19 21:17) Unknown tetracycline [Tetracycline] Adverse Reaction (Verified 02/27/19 21:17) Swelling Home Medications: Ambulatory Orders Medication Instructions Recorded Aspirin E.C. [Ecotrin] 81 mg PO DAILY@0800 03/08/17 Calcium Carbonate/Vitamin D3 1 ea PO BID 03/08/17 [Calcium 500-Vit D3 600 Caplet] Diphenhydramine HCl [Sleep Aid] 50 mg PO QHS 03/08/17 Gabapentin [Neurontin] 600 mg PO 4X/DAY 03/08/17 Omeprazole [Prilosec] 20 mg PO BID 03/08/17 Cyanocobalamin [Vitamin B12] 500 mcg PO DAILY@0800 12/07/17 losartan 100 mg tablet 100 mg PO QDAY #90 tab 05/16/18 furosemide 40 mg tablet 40 mg PO DAILY #90 tab 07/18/18 isosorbide mononitrate ER 120 mg 120 mg PO DAILY #90 tab 09/23/18 tablet,extended release 24 hr rosuvastatin 40 mg tablet 40 mg PO DAILY #90 tab 09/28/18 metoprolol succinate ER 100 mg 100 mg PO DAILY #90 tab 10/25/18 tablet,extended release 24 hr warfarin 3 mg tablet 3 mg PO .COMPLEX tab 12/13/18 nitroglycerin 0.4 mg sublingual 0.4 mg SUBLINGUAL Q5-15M PRN #25 12/30/18 tablet tab warfarin 1 mg tablet 1 mg PO DAILY #90 tab 01/30/19 Hydrocodone/Acetaminophen [[place] 1 ea PO PRN PRN 02/27/19 7.5-325 Tablet] Methocarbamol 500 mg PO PRN PRN 02/27/19 Surgical History: Surgical History (Last Reviewed 02/28/19 @ 07:17 by Nam Robertson MD) Aortocoronary bypass status (Chronic) Onset Date: ~10/09/02 Z95.1 CABG x6- Sequential SVG in Sequence to the LAD, Descending Diagonal, CX/CX, and RCA/RCA 02 H/O arthroscopic knee surgery Z98.890 left knee 2001 History of partial knee replacement Z96.659 right History of total hysterectomy Z90.710 History of tubal ligation Z98.51 Hx of bilateral breast reduction surgery Z98.890 Hx of cholecystectomy Z90.49 Surgical History: appendectomy, cholecystectomy, coronary bypass surgery - 2002, hysterectomy, - - Breast reduction, right knee partial replacement, left knee repair, perforated bowel repair. 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 Smoking Status: Never smoker - *Family History Maternal Family History: Family History (Last Reviewed 02/28/19 @ 07:18 by Nam Robertson MD) Mother Myocardial infarction Hypertension Heart disease History of coronary artery bypass graft Brother Hypertension History of coronary artery bypass graft Father Cancer History Items: Heart Disease, Hypertension Paternal Family History: Family History (Last Reviewed 02/28/19 @ 07:18 by Nam Robertson MD) Mother Myocardial infarction Hypertension Heart disease History of coronary artery bypass graft Brother Hypertension History of coronary artery bypass graft Father Cancer History Items: Cancer Review of Systems Constitutional: Denies: Chills, Fever, Weight Change HEENT: Denies: Head Aches, Sinus Congestion, Sinus Drainage Cardiovascular: Reports: Chest Pain. Denies: Palpitations Respiratory: Denies: Cough, Shortness of breath at rest, Sputum production Gastrointestinal: Reports: Nausea. Denies: Abdominal Pain, Vomiting Genitourinary: Denies: Dysuria Musculoskeletal: Reports: Back Pain. Denies: Joint Pain, Joint Tenderness Skin: Denies: Rash, Wounds Neurological: Denies: Numbness, Tingling, Focal weakness Psychiatric: Denies: Anxiety, Depression, Homicidal Ideations, Suicidal Ideations Hematologic/ Lymphatic: Denies: Easy Bruising, Easy Bleeding VTE Information - Inpt Only VTE Present on Admission: No VTE Mechan Device Prophylaxis: None VTE Pharm Prophylaxis ordered?: No Reason prophylaxis not ordered:: Treatment Not Indicated - Patient on Coumadin for A. fib; Coumadin continued Patient Problems: Active and Suspected Problems (Last Reviewed 02/28/19 @ 03:48 by Nam Robertson MD) Chest pain (Acute) Back pain (Acute) Back spasm (Acute) - Physical Exam General: Alert, Oriented x3, Cooperative, - - Patient in acute distress secondary to back pain HEENT: Atraumatic, PERRLA, EOMI, Normocephalic Neck: Supple, No JVD, Negative Carotid Bruits Lungs: Clear to auscultation, Normal air movement Cardiovascular: Regular rate, No murmurs Abdomen: Bowel Sounds Present, Soft, Non Tender Extremities: No edema, Capillary Refill Less than 3 Seconds Skin: No rashes, No breakdown Musculoskeletal: - - Left lower back with paraspinal tenderness. Straight leg test negative bilaterally. Neurological: Cranial nerves II-XII grossly intact Psych/Mental Status: Normal Affect, Appropriate, - - Screaming secondary to pain Vital Signs Temp Pulse Resp BP Pulse Ox 97.9 F 73 20 H 158/76 H 98 02/27/19 21:10 02/27/19 23:00 02/27/19 23:00 02/27/19 23:00 02/27/19 23:00 Oxygen Flow Rate (L/min) 2 Oxygen Delivery Method Nasal Cannula Weight: 100.2 kg Body Mass Index (BMI) 36.7 Laboratory Tests Past 24 Hrs 02/27/19 02/27/19 02/27/19 21:20 21:20 21:20 WBC 9.5 RBC 4.26 Hgb 12.5 Hct 38.3 MCV 89.9 MCH 29.3 MCHC 32.6 RDW 15.1 H RDW Differential 49.3 H Plt Count 204 MPV 11.5 Immature Gran % (Auto) 0.500 Neut % (Auto) 51.6 Lymph % (Auto) 38.0 [place] % (Auto) 8.7 Eos % (Auto) 1.1 Baso % (Auto) 0.1 Absolute Neuts (auto) 4.9 Absolute Lymphs (auto) 3.60 PT 23.4 H INR 2.1 Sodium 138 Potassium 3.9 Chloride 103 Carbon Dioxide 27.0 Anion Gap 8 BUN 23 H Creatinine 1.18 H Estim Creat Clear Calc 34.22 Est GFR (MDRD) Af Amer 57 L Est GFR (MDRD) Non-Af 47 L BUN/Creatinine Ratio 19.5 Glucose 144 H Calcium 9.1 Troponin I < 0.015 Assessment/Plan All Active Problems (Last Reviewed 02/28/19 @ 03:48 by Nam Robertson MD) Chest pain (Acute) Back pain (Acute) Back spasm (Acute) LBBB (left bundle branch block) (Acute) NSTEMI (non-ST elevated myocardial infarction) (Resolved) The patient is a 78 year old F with a significant history of CAD s/p CABG X 6; HTN; DM 2; Ischemic Cardiomyopathy who presented to emergency department with left-sided chest pain; and also with back pain and recent diagnosis of lumbar fracture for which she was scheduled for an outpatient MRI. Chest pain Admit to a monitored bed on PCU CXR was interpreted as stable mild cardiomegaly. New linear left perihilar and left lower lobe segmental colitis versus mild pulmonary infiltrate. Incentive spirometer ordered. EKG independently reviewed confirms left bundle branch block unchanged from previous. ASA 81 mg p.o. daily SL NTG 0.4 mg prn as needed for chest pain Morphine as needed for pain We will check lipid panel. Statin: High-intensity statin continued Serial cardiac enzymes Stat EKG as needed for chest pain Losartan; Imdur and metoprolol continued Back pain Reportedly patient has lumbar fracture and was scheduled for an outpatient MRI. Will order MRI with patient is inpatient at this time. Home [place] continue for moderate pain. Patient was started on morphine IV at the emergency department. We will continue morphine as needed for severe pain. Antiemetics and as needed bowel regimen ordered. Hypertensive urgency Highest systolic pressure was 209. Losartan; Imdur and metoprolol continued Atrial fibrillation EKG showed left bundle branch block. Unchanged from previous INR is therapeutic. Coumadin continued. Ischemic cardiomyopathy Lasix continued Losartan; Imdur and metoprolol continued DVT prophylaxis Patient on Coumadin for A. fib. INR is therapeutic. Coumadin continued. Code Visit OBSV E&M: 67250 Initial observation care L3
[2019-02-28] VITALS (12 sets, daily range): BP systolic 113–209; BP diastolic 56–95; PULSE 74–91; RESP 16–20; TEMP 36.3–37; O2SAT 93–98; BMI 36.2
[2019-02-28] MEDS: Morphine 2 MG/ML Syringe IV (00:25)
[2019-02-28] MEDS: Ondansetron 4 MG/2 ML Vial IV (00:26)
--- NOTE | 2019-02-28 00:57 | EKG12_ITS ---
Test Reason : CP ADMISSION Blood Pressure : / mmHG Vent. Rate : 078 BPM Atrial Rate : 078 BPM P-R Int : 178 ms QRS Dur : 134 ms QT Int : 418 ms P-R-T Axes : 068 016 005 degrees QTc Int : 476 ms Normal sinus rhythm Left bundle branch block Abnormal ECG When compared with ECG of 07-DEC-2017 00:51, No significant change was found Confirmed by LINDSAY YADAV, LEONOR ([id number]), editorial director TERESA FERGUSON ([id number]) on 03/01/2019 11:17:18 AM Referred By: Nam Robertson Confirmed By:LEONOR MONTOYA MD
[2019-02-28] MEDS: DiphenhydrAMINE 25 MG Capsule 50 MG PO (02:06)
[2019-02-28] MEDS: HYDROcodone Bitartrate/Apap 5/325 Tablet PO ×2 (02:06→08:32)
[2019-02-28] MEDS: Methocarbamol 500 MG Tablet PO ×2 (02:06→08:32)
[2019-02-28] MEDS: dexAMETHasone 4 MG Tablet PO ×3 (02:15→11:03)
[2019-02-28 04:12] LABS: Cholesterol 178 mg/dL (200); High Density Lipoprotein 53 mg/dL; Triglycerides 108 mg/dL; Very Low Density Lipoprotein 22 mg/dL (5-40)
--- NOTE | 2019-02-28 08:19 | NURSING ---
Patient informed of ordered stress test. Patient states Dr. Mendez said she could not have another one completed. Dr. Hameed notified of this. Patient notified that the MD felt it was important to do the stress test. The patient is not agreeable to the stress test and states she does not want it completed.
[2019-02-28] MEDS: Calcium Carb/Vitamin D 1 TABLET Tablet PO (08:34)
[2019-02-28] MEDS: Gabapentin 600 MG Tablet PO (08:34)
[2019-02-28] MEDS: Aspirin E.C. 81 MG Tablet PO (08:34)
[2019-02-28] MEDS: Cyanocobalamin 500 MCG Tablet PO (08:35)
[2019-02-28] MEDS: Losartan Potassium 100 MG Tablet PO (08:35)
[2019-02-28] MEDS: Pantoprazole Sodium 20 MG Tablet PO (08:35)
[2019-02-28] MEDS: Furosemide 40 MG Tablet PO (08:35)
[2019-02-28] MEDS: Metoprolol(XL)Succ 100 MG Tablet PO (08:36)
--- NOTE | 2019-02-28 10:54 | PCM.DC ---
- Discharge Diagnoses Current Active Problems: Current Active and Chronic Problems (Last Reviewed 02/28/19 @ 07:17 by Nam Robertson MD) Chest pain (Acute) Back pain (Acute) Back spasm (Acute) You will use the following diet at home:: Cardiac Your food should be the consistency of: Regular Discharge Activity: Return to Normal Activity Call your doctor if you observe: Fever of 101 or Higher, Shortness of breath, Dizziness, Fainting spells, Swelling in the ankles, Chest pain, Increased palpitations (irregular heartbeat) Allergies/Adverse Reactions: Allergies Sulfa (Sulfonamide Antibiotics) Allergy (Verified 02/27/19 21:17) Rash doxycycline Adverse Reaction (Mild, Verified 02/27/19 21:17) Swelling cephalexin monohydrate [From Keflex] Adverse Reaction (Verified 02/27/19 21:17) Upset Stomach dicyclomine Adverse Reaction (Verified 02/27/19 21:17) Other NSAIDS (Non-Steroidal Anti-Inflamma Adverse Reaction (Verified 02/27/19 21:17) Other Penicillins Adverse Reaction (Verified 02/27/19 21:17) Unknown tetracycline [Tetracycline] Adverse Reaction (Verified 02/27/19 21:17) Swelling Medications to take at Discharge Aspirin E.C. [Ecotrin] 81 mg PO DAILY@0800 03/08/17 Calcium Carbonate/Vitamin D3 [Calcium 500-Vit D3 600 Caplet] 1 ea PO BID 03/08/17 Diphenhydramine HCl [Sleep Aid] 50 mg PO QHS 03/08/17 Gabapentin [Neurontin] 600 mg PO 4X/DAY 03/08/17 Omeprazole [Prilosec] 20 mg PO BID 03/08/17 Cyanocobalamin [Vitamin B12] 500 mcg PO DAILY@0800 12/07/17 losartan 100 mg tablet 100 mg PO QDAY #90 tab 05/16/18 furosemide 40 mg tablet 40 mg PO DAILY #90 tab 07/18/18 isosorbide mononitrate ER 120 mg tablet,extended release 24 hr 120 mg PO DAILY #90 tab 09/23/18 rosuvastatin 40 mg tablet 40 mg PO DAILY #90 tab 09/28/18 metoprolol succinate ER 100 mg tablet,extended release 24 hr 100 mg PO DAILY #90 tab 10/25/18 warfarin 3 mg tablet 3 mg PO .COMPLEX tab 12/13/18 nitroglycerin 0.4 mg sublingual tablet 0.4 mg SUBLINGUAL Q5-15M PRN #25 tab 12/30/18 warfarin 1 mg tablet 1 mg PO DAILY #90 tab 01/30/19 Hydrocodone/Acetaminophen [[place] 7.5-325 Tablet] 1 ea PO PRN PRN 02/27/19 Methocarbamol 500 mg PO PRN PRN 02/27/19 Primary Care Physician: Osiel Arzola MD [Primary Care Provider] - Please follow up with your Primary Care Physician in: 3-5 days Test Results: Test results from this visit will be discussed in further detail at your follow-up appointment, if applicable.
--- NOTE | 2019-02-28 10:56 | DS.PCM_ITS ---
Discharge Date and Diagnosis - Problem List Patient Problems: Active and Suspected Problems (Last Reviewed 02/28/19 @ 07:17 by Nam Robertson MD) Chest pain (Acute) Back pain (Acute) Back spasm (Acute) Date of Admission: 02/27/19 Date of Discharge: 02/28/19 - Primary Discharge Diagnosis Active and Suspected Problems (Last Reviewed 02/28/19 @ 07:17 by Nam Robertson MD) Chest pain (Acute) Back pain (Acute) Back spasm (Acute) - Secondary Discharge Diagnosis Chronic Problems (Last Reviewed 02/28/19 @ 07:17 by Nam Robertson MD) Primary osteoarthritis of left knee (Chronic) Pure hypercholesterolemia (Chronic) Aortocoronary bypass status (Chronic ~10/09/02) CABG x6- Sequential SVG in Sequence to the LAD, Descending Diagonal, CX/CX, and RCA/RCA 10/09/02 Atherosclerotic heart disease of [place] coronary artery without angina pectoris (Chronic) Atherosclerosis of coronary artery bypass graft(s), unspecified, with other forms of angina pectoris (Chronic) CABG x6- Sequential SVG in Sequence to the LAD, Descending Diagonal, CX/CX, and RCA/RCA 10/09/02 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 (Chronic) alf current use of anticoagulant (Chronic) Benign hypertension (Chronic) Obesity (Chronic) Diabetes mellitus, type 2 (Chronic) Systolic CHF, chronic (Chronic) Thromboembolic disorder (Chronic) Ischemic cardiomyopathy (Chronic) Hospital Course and Treatment Imaging Results: CXR: IMPRESSION: Previous cardiothoracic surgery Stable mild cardiomegaly New linear left perihilar and left lower lobe subsegmental atelectasis versus mild pulmonary infiltrates Consults: None Operations: None Procedures: None Summary of Care Provided: HPI: The patient is a 78 year old F with a significant history of CAD s/p CABG X 6; HTN; DM 2; Ischemic Cardiomyopathy who presented to emergency department with left-sided chest pain. He describes a left chest pain as not severe. She is unable to describe the quality of her pain. Her pain was persistent but it was relieved with nitroglycerin and aspirin that was given by the paramedics. She denies any vomiting or diaphoresis. However she has nausea that she thinks is not only associated with her chest pain. Reportedly the patient was told that she is not a candidate for any further stress test by cardiology. Importantly patient has back pain and has been diagnosed with lumbar fracture. Patient is scheduled to have MRI of her back on 03-03 because of the back pain. She reported that she has nausea that is associated with her back pain. She denies any bowel or bladder changes. Her pain regimen at home is not sufficient to control her back pain. She describes her back pain as spasms and severe. Hospital Course: 1. Chest pain rule out/CAD status post CABG x6/LBBB/HTN/HLD/A. [id number] female who presented to the hospital for left-sided chest pain. She states that it was constant and it is now resolved. She states that it hurts when you push on the left side of her chest, and that the pain that she experiences when you push on her chest is the same pain that brought her into the ER. Her troponins were normal and she refused to have a stress test because she was told to never have one ever again. She also presented to the ER because of her back pain and she want to get an MRI sooner because hers was ordered for this Wednesday. I discussed with her that we will do an outpatient MRI as an inpatient and that since she does not want a stress test and her pain has resolved and her troponins were normal but she could go home and follow-up with cardiology as an outpatient. She did elect to have this done. Also she had elevated blood pressures that improved significantly with the administration of her home medications. Her INR was normal and therefore no changes were made to her medical management of her previous conditions. I did discuss the plan with her in detail and she was in agreement with it. 2. Lumbar back pain-she has an lumbar MRI ordered for Wednesday, she wanted to have one done while here in the hospital and I discussed with her that that would not happen. Also her daughter called asking for more narcotics on discharge, however I reviewed the PDMP and from January 24 until February 24 she has been given over 100 narcotic pills, therefore I will not discharge her on any further narcotic pain meds other than what she already is taking at home by othe r providers. 3. Other medical diagnoses were evaluated and her home medications were continued where appropriate Patient Problems: Active and Suspected Problems (Last Reviewed 02/28/19 @ 07:17 by Nam Robertson MD) Chest pain (Acute) Back pain (Acute) Back spasm (Acute) - Physical Exam General: Alert, Oriented x3, Cooperative, No apparent distress HEENT: Atraumatic, PERRLA, EOMI, Normocephalic Oral: Moist Mucosa Neck: Supple, No JVD Lungs: Clear to auscultation, Normal air movement, No rhonchi, No wheeze, No rales Cardiovascular: Regular rate, Regular Rhythm, Normal S1, Normal S2, No murmurs, - - Chest pain with palpation Abdomen: Soft, Non Tender, Non-Distended, No Hepato-splenomegaly Extremities: No edema, Capillary Refill Less than 3 Seconds Skin: No rashes, No breakdown Neurological: Neuro grossly intact, Sensory exam intact to light touch and pain Psych/Mental Status: Normal Affect, Appropriate Vital Signs Temp Pulse Resp BP Pulse Ox 97.8 F 80 16 166/89 H 94 02/28/19 08:31 02/28/19 08:36 02/28/19 08:31 02/28/19 08:31 02/28/19 08:31 Oxygen Flow Rate (L/min) 2 Oxygen Delivery Method Room Air Weight: 217 lb 13.067 oz Body Mass Index (BMI) 36.2 Intake and Output for Last 24 Hours 02/26/19 02/27/19 02/28/19 23:59 23:59 23:59 Intake Total 550 / 550 Balance 550 / 550 Laboratory Tests Past 24 Hrs 02/27/19 02/27/19 02/27/19 21:20 21:20 21:20 WBC 9.5 RBC 4.26 Hgb 12.5 Hct 38.3 MCV 89.9 MCH 29.3 MCHC 32.6 RDW 15.1 H RDW Differential 49.3 H Plt Count 204 MPV 11.5 Immature Gran % (Auto) 0.500 Neut % (Auto) 51.6 Lymph % (Auto) 38.0 [place] % (Auto) 8.7 Eos % (Auto) 1.1 Baso % (Auto) 0.1 Absolute Neuts (auto) 4.9 Absolute Lymphs (auto) 3.60 PT 23.4 H INR 2.1 Sodium 138 Potassium 3.9 Chloride 103 Carbon Dioxide 27.0 Anion Gap 8 BUN 23 H Creatinine 1.18 H Estim Creat Clear Calc 34.22 Est GFR (MDRD) Af Amer 57 L Est GFR (MDRD) Non-Af 47 L BUN/Creatinine Ratio 19.5 Glucose 144 H Calcium 9.1 Troponin I < 0.015 Triglycerides Cholesterol LDL Cholesterol VLDL Cholesterol HDL Cholesterol 02/28/19 02/28/19 01:00 03:40 WBC RBC Hgb Hct MCV MCH MCHC RDW RDW Differential Plt Count MPV Immature Gran % (Auto) Neut % (Auto) Lymph % (Auto) [place] % (Auto) Eos % (Auto) Baso % (Auto) Absolute Neuts (auto) Absolute Lymphs (auto) PT INR Sodium Potassium Chloride Carbon Dioxide Anion Gap BUN Creatinine Estim Creat Clear Calc Est GFR (MDRD) Af Amer Est GFR (MDRD) Non-Af BUN/Creatinine Ratio Glucose Calcium Troponin I < 0.015 < 0.015 Triglycerides 108 Cholesterol 178 LDL Cholesterol 103 VLDL Cholesterol 22 HDL Cholesterol 53 Discharge Activity: Return to Normal Activity Call your doctor if you observe: Fever of 101 or Higher, Shortness of breath, Dizziness, Fainting spells, Swelling in the ankles, Chest pain, Increased palpitations (irregular heartbeat) Home Medications: Medications to take at Discharge Aspirin E.C. [Ecotrin] 81 mg PO DAILY@0800 03/08/17 Calcium Carbonate/Vitamin D3 [Calcium 500-Vit D3 600 Caplet] 1 ea PO BID 03/08/17 Diphenhydramine HCl [Sleep Aid] 50 mg PO QHS 03/08/17 Gabapentin [Neurontin] 600 mg PO 4X/DAY 03/08/17 Omeprazole [Prilosec] 20 mg PO BID 03/08/17 Cyanocobalamin [Vitamin B12] 500 mcg PO DAILY@0800 12/07/17 losartan 100 mg tablet 100 mg PO QDAY #90 tab 05/16/18 furosemide 40 mg tablet 40 mg PO DAILY #90 tab 07/18/18 isosorbide mononitrate ER 120 mg tablet,extended release 24 hr 120 mg PO DAILY #90 tab 09/23/18 rosuvastatin 40 mg tablet 40 mg PO DAILY #90 tab 09/28/18 metoprolol succinate ER 100 mg tablet,extended release 24 hr 100 mg PO DAILY #90 tab 10/25/18 warfarin 3 mg tablet 3 mg PO .COMPLEX tab 12/13/18 nitroglycerin 0.4 mg sublingual tablet 0.4 mg SUBLINGUAL Q5-15M PRN #25 tab 05/17/19 warfarin 1 mg tablet 1 mg PO DAILY #90 tab 01/30/19 Hydrocodone/Acetaminophen [[place] 7.5-325 Tablet] 1 ea PO PRN PRN 02/27/19 Methocarbamol 500 mg PO PRN PRN 02/27/19 Primary Care Physician: Osiel Arzola MD [Primary Care Provider] - Please follow up with your Primary Care Physician in: 3-5 days Disposition: Home Minutes spent on discharge:: 35 Patient Condition:: Good Medical Necessity - Tobacco Use Smoking Status: Never smoker Tobacco Use: Secondhand Meaningful Use Info Meaningful Use Diagnoses (Choose all that apply): None applicable Code Visit OBSV E&M: 09724 Observation care discharge
--- NOTE | 2019-02-28 11:24 | CPS ---
started by nursing
== END 2019-02-28 12:00 | disposition home or self-care (01) ==
LOC: ED 23:34 → PCU 02-28 00:17
PROVIDERS: Admitting Provider Hospitalist; Emergency Provider Emergency Medicine; Family Provider Family Medicine; PCP Family Medicine; Referring Provider Hospitalist; Visit Provider Family Medicine
DX: R07.89 Other chest pain (principal); I25.10 Atherosclerotic heart disease of native coronary artery without angina pectoris; E11.9 Type 2 diabetes mellitus without complications; M17.12 Unilateral primary osteoarthritis, left knee; E66.9 Obesity, unspecified; I11.0 Hypertensive heart disease with heart failure; I25.2 Old myocardial infarction; M62.830 Muscle spasm of back; I25.5 Ischemic cardiomyopathy; I50.22 Chronic systolic (congestive) heart failure; Z95.1 Presence of aortocoronary bypass graft; Z68.36 Body mass index [BMI] 36.0-36.9, adult; Z71.3 Dietary counseling and surveillance; Z79.899 Other long term (current) drug therapy; Z79.01 Long term (current) use of anticoagulants; E78.5 Hyperlipidemia, unspecified; Z86.718 Personal history of other venous thrombosis and embolism; K21.9 Gastro-esophageal reflux disease without esophagitis; I16.0 Hypertensive urgency; M54.5 Low back pain
CPT/HCPCS: 36415; 71045; 80048; 80061; 84484; 85025; 85610; 93005; 96374; 96375; 96376; 99218; 99285; J7030; A4216; G0378; J2405

== ENCOUNTER 2019-04-03 11:54 | Day surgery (SDC) | payer MEDICARE, SELFPAY ==
[2019-02-28 00:46] VITALS: BMI 36.2
[2019-04-03 12:42] LABS: Prothrombin Time Fingerstick 16.9 SEC (11.9-14.4)
[2019-04-03 12:51] VITALS: BP 116/62; PULSE 77; RESP 16; TEMP 36.8; O2SAT 98; BMI 36.3
--- NOTE | 2019-04-03 13:30 | BON_PTH ---
PATIENT: RIP LORENZO LOC: [facility] [place] U#:[id number] AGE/SX: 78/F ROOM: RE04/03/[address]: Dr. Tex Lazo MD : [id number] BED: DIS: 04/03/2019 SPEC #: [id number] RECD: 04/03/19 15:37 STATUS: KACEY REEvan #: [id number] SONYA: 04/03/19 13:[address]: Tex Lazo DEPT: SURGICAL PATHOLOGY RECD BY: Nish Guerrero ENTERED: 04/04/19 07:54 SP TYPE: Bone OTHR DR: Dr. Osiel Arzola MD Tissues: Vertebra, NOS Procedures: Decalcification bone/plaque Surgery Specimen Level IV HEADER OPERATION: Kyphoplasty T12 PRE-OP DIAGNOSIS: Compression fracture thoracic spine TISSUE SUBMITTED: T12 bone biopsy MICROSCOPIC DIAGNOSIS T12 bone, biopsy: Fragments of blood clots, negative for malignancy. See comment. KENNETH:alem 04/05/19 COMMENT Bone fragments are not identified in the submitted specimen. Correlation with clinical findings and appropriate follow up are necessary. MICROSCOPIC DESCRIPTION Slides are reviewed. GROSS DESCRIPTION Received in fixative is one container labeled with the patient's name and designated T12 bone biopsy. The specimen consists of multiple fragments of blood clot mixed with possible fragments of bone that in aggregate measure 0.5 x 0.5 x 0.1 cm. The specimen is totally submitted in one cassette after decalcification. / KENNETH:alem 04/04/19 TC:5 CPT: 08827
[2019-04-03] MEDS: Bupivacaine Mpf 0.5% 30 ML VIAL (14:00)
--- NOTE | 2019-04-03 14:15 | RAD_ITS ---
STUDY: T2 KYPHOPLASTY REASON FOR EXAM: Female, 78 years old. Spinal fracture RADIATION DOSAGE (If Supplied By Facility): CTDIvol = ( ) mGy, DLP = ( ) mGycm. Individualized dose optimization techniques were used for this CT.? FLUOROSCOPY TIME (if supplied): (1:32) minutes/seconds TECHNIQUE: 7 intraoperative fluoroscopy image(s) acquired as permanent record. COMPARISON: None. FINDINGS: Intraoperative fluoroscopy utilized as image guidance during T2 kyphoplasty. Please refer to the procedure report regarding details of the procedure. RAD/Thoracic Spine 2 Views IMPRESSION: As above Electronically Signed: Regan Roger MD at 18:52 EDT Tel [phone], Service support ,
[2019-04-03] MEDS: Bacitracin 500 UNITS/GM PACKET (15:04)
[2019-04-03 15:17] VITALS: BP 116/62; BP 116/64; PULSE 85; RESP 16; TEMP 36.7; O2SAT 98
[2019-04-03 15:22] VITALS: BP 116/62; BP 118/70; PULSE 76; RESP 16; O2SAT 96
[2019-04-03 15:27] VITALS: BP 116/62; BP 118/60; PULSE 74; RESP 16; O2SAT 98
[2019-04-03 15:32] VITALS: BP 108/59; BP 116/62; PULSE 75; RESP 16; TEMP 36.4; O2SAT 99
[2019-04-03 16:10] VITALS: BP 116/62
--- NOTE | 2019-04-03 18:37 | PCM.OPRPT ---
Problem List (1) Compression fracture of T12 vertebra Status: Acute Report of Operation Date of Procedure: 04/03/19 Description of Surgical Findings:: PROCEDURES: 1. [place] balloon kyphoplasty at the T12 2. Insertion of Xiomy HV-R bone cement under low pressure at the T12 3. Bone biopsy at T12 4. Fluoroscopic guidance and interpretation of images PREOPERATIVE DIAGNOSES: Osteoporosis, compression fracture of T12 POSTOPERATIVE DIAGNOSES: Osteoporosis, severe compression fracture of T12 ANESTHESIA: MAC COMPLICATIONS: None BLOOD LOSS: Minimal PROCEDURE IN DETAIL: History and physical today was reviewed. Risks and benefits of procedure explained. The patient understood, agreed to procedure, informed consent was obtained. IV inserted per routine protocol. The patient was taken to the operating room, placed in the prone position with a pillow positioned underneath the chest. A 900 mg of clindamycin IV piggyback was infused per anesthesia. The upper and middle back area was prepped and draped in a sterile fashion using iodine x3. Under direct visualization with fluoroscopy with the C-arm, which brought into position on AP as well as lateral view at the [id number]., the T12 pedicle was then identified. In the view of the collapsed T12 a transpedicular approach to the vertebral body was appropriate. on the left side at T12 level, the skin and subcutaneous tissue in size approximately 10 cc of a mixture of 2% lidocaine and 0.25% Marcaine with the 25-gauge 1-1/2 intraocular needle followed by a 25-gauge 3-1/2 inch spinal needle towards the pedicle at T12 to anesthetize the periosteum [id number] needle was advanced through the T12 pedicle through the junction of the pedicle and the vertebral body on the left side. Position was then confirmed on AP as well as lateral view. Following satisfactory placement of the needle to make sure it is further off the midline and interlaminar space. The stylet of the needle was then removed. A guide pen and then inserted through the 11-gauge trocar and advanced approximately 3 mm from the anterior cortex on the lateral view. AP and lateral images were then taken to verify position and trajectory of the needle. The needle was then removed leaving the guide pen in place. The introducer was then placed over the guide pen and advanced through the pedicle. a lateral image was taken to ensure that the cannula was positioned approximately 1 cm past the vertebral body and a lateral image was then taken to ensure correct positi0, a drill was then advanced into the vertebral body under fluoroscopic guidance towards the anterior cortex creating a channel. The anterior cortex were then probed with guide pen to ensure no perforation in the anterior cortex. After completion of the entry into the vertebral body, a 30 mL inflatable bone tamp was then inserted through the cannula and advanced under direct fluoroscopic guidance into the vertebral body near the anterior cortex., The biopsy was then taken at the T12 level. After completion of the entry into the vertebral body, a balloon tamp utilizing radiopaque marker bands on the bone tamp were identified using AP and lateral images. The above sequence of instrument placement was then repeated on the left side at the T12 vertebral body. Once bone tamps were in position, they were inflated to approximately 2 mL and making sure that the pressure is not passing 250 psi. Expansion of the bone tamp was then done sequentially in an increments of 0.25 to 0.5 mL of contrast with a careful attention was being paid to the inflation pressure and the balloon position. The inflation was then monitored on AP and lateral view images. The final balloon volume was 2 mL on the left side at T12. There was no breach of the lateral wall or the anterior cortex of the vertebral body. Direct reduction of the fracture was then achieved. Endplate movement was then noticed and approximately 5 mm of the height hinduism was achieved at T12 and . Under fluoroscopic imaging and a bone void filler, internal fixation was achieved through a low pressure injection of a [place] HV-R bone cement. The cavity was then filled with a total volume of 2.5 mL on the left side at T12. Once the bone cement had hardened, the cannula was then removed. Once the cannula was removed and satisfactory hemostasis was maintained, the incision as then closed with a 4-0 Vicryl at the skin. The patient was kept in the prone position for approximately 10 minutes post-cement injection. The patient was then turned into supine position, monitored briefly and returned to PACU. The patient was moving both of her lower extremities at the same time without any apparent neurological deficits. Throughout the procedure, there were no intraoperative complications, Motor as well as sensory exam was unchanged from prior to procedure. ESTIMATED BLOOD LOSS: Minimal less than 25 mL ASSESSMENT AND PLAN: This is a 78-year-old female with compression fracture at T12, and osteoporosis, status post [place] balloon kyphoplasty at T12, and insertion o Xiomy HV-R bone cement under low pressure at T12 and bone biopsied at T12. The patient will continue her current medication. . The patient will follow-up in approximately 1 week for re-evaluation. .
== END 2019-04-03 16:21 | disposition home or self-care (01) ==
LOC: SDC 11:55 → AC 11:57
PROVIDERS: Family Provider Family Medicine; PCP Family Medicine; Referring Provider Anesthesiology Pain Medicine; Visit Provider Anesthesiology Pain Medicine
PROC: (CPT 22513; principal; 2019-04-03 13:15)
DX: M48.54XA Collapsed vertebra, not elsewhere classified, thoracic region, initial encounter for fracture (principal); M48.56XA Collapsed vertebra, not elsewhere classified, lumbar region, initial encounter for fracture; M81.0 Age-related osteoporosis without current pathological fracture; E78.00 Pure hypercholesterolemia, unspecified; K21.9 Gastro-esophageal reflux disease without esophagitis; I10 Essential (primary) hypertension; Z86.718 Personal history of other venous thrombosis and embolism; Z86.711 Personal history of pulmonary embolism; Z95.1 Presence of aortocoronary bypass graft; E11.9 Type 2 diabetes mellitus without complications; E78.5 Hyperlipidemia, unspecified; I25.2 Old myocardial infarction; G62.9 Polyneuropathy, unspecified; M17.12 Unilateral primary osteoarthritis, left knee; M25.562 Pain in left knee; M54.9 Dorsalgia, unspecified; Z79.891 Long term (current) use of opiate analgesic
CPT/HCPCS: 22513; 36416; 72070; 76000; 85610; 88305; 88311; J7120

== ENCOUNTER 2019-04-19 16:08 | Outpatient (RCR) | payer MEDICARE, SELFPAY ==
[2019-04-19 17:25] LABS: Prothrombin Time (Protime)PT. 22.5 SECONDS (11.7-14.9)
== END 2019-04-19 17:00 | disposition home or self-care (01) ==
LOC: LAB 16:08
PROVIDERS: Family Provider Family Medicine; PCP Family Medicine; Referring Provider Internal Medicine Cardiovascular Disease; Visit Provider Internal Medicine Cardiovascular Disease
DX: Z79.01 Long term (current) use of anticoagulants (principal)
CPT/HCPCS: 36415; 85610

== ENCOUNTER 2019-04-22 16:49 | Emergency (ER) | payer MEDICARE, SELFPAY ==
[2019-04-22 16:51] VITALS: BP 133/93; PULSE 89; RESP 22; TEMP 37.1; O2SAT 96; BMI 36.6
--- NOTE | 2019-04-22 18:00 | ED.DCSUM_ITS ---
History of Present Illness Chief Complaint: Back Informant: Patient, Family Onset: Month(s) Current Severity: Mild Narrative: She has a long history of lumbar back pain she indicates she was diagnosed with a T12 compression fracture related to osteoporosis she had no trauma, she was on pain management including Percocet, she had a kyphoplasty mid March all of her pain meds were stopped the family reports her pain has simply not improved with a kyphoplasty anyway, and she has no oral medications to use and she came to emergency room for evaluation she has history of CABG her cardiovascular status is been stable no chest pain fever cough no trauma no numbness weakness paresthesias she has pain directly over the mid back area which is the exact area she is had pain all along no neurologic abnormal is her complaints I am a could not contact her pain management physician was brought to the hospital Past Medical History - Allergies and Home Meds Allergies/Adverse Reactions: Allergies Sulfa (Sulfonamide Antibiotics) Allergy (Verified 04/22/19 16:51) Rash doxycycline Adverse Reaction (Mild, Verified 04/22/19 16:51) Swelling cephalexin monohydrate [From Keflex] Adverse Reaction (Verified 04/22/19 16:51) Upset Stomach dicyclomine Adverse Reaction (Verified 04/22/19 16:51) Other NSAIDS (Non-Steroidal Anti-Inflamma Adverse Reaction (Verified 04/22/19 16:51) Other Penicillins Adverse Reaction (Verified 04/22/19 16:51) Unknown tetracycline [Tetracycline] Adverse Reaction (Verified 04/22/19 16:51) Swelling Primary Care Physician: Osiel Arzloa MD [Primary Care Provider] - Past Medical History: - - Otherwise as above Surgical History: appendectomy, cholecystectomy, coronary bypass surgery - 2002, hysterectomy, - - Breast reduction, right knee partial replacement, left knee repair, perforated bowel repair. Smoking Status: Never smoker - Family History Maternal Family History: Family History (Last Reviewed 02/28/19 @ 07:18 by Nam Robertson MD) Mother Myocardial infarction Hypertension Heart disease History of coronary artery bypass graft Brother Hypertension History of coronary artery bypass graft Father Cancer Family History: Reports: Heart Disease, Hypertension Paternal Family History: Family History (Last Reviewed 02/28/19 @ 07:18 by Nam Robertson MD) Mother Myocardial infarction Hypertension Heart disease History of coronary artery bypass graft Brother Hypertension History of coronary artery bypass graft Father Cancer Family History: Reports: Cancer Review of Systems General: Denies: Chills, Fever, Sweats Eyes: Denies: Visual changes - bilaterally, Diplopia ENT: Denies: Rhinorrhea, Sore throat Cardiovascular: Denies: Chest pain, Palpitations Respiratory: Denies: Dyspnea, Cough, Dyspnea on exertion Gastrointestinal: Denies: Abdominal pain, Nausea, Vomiting, Diarrhea, Melena, Hematochezia Genitourinary: Denies: Dysuria, Hematuria, Frequency Musculoskeletal: Reports: Back pain. Denies: Extremity Pain Skin: Denies: Rash, Wounds Neurological: Denies: Headache, Weakness, Numbness Physical Exam Vital Signs/Narrative: Vital Signs Temp Pulse Resp BP Pulse Ox 04/22/19 16:51 98.7 F 89 22 H 133/93 H 96 General: Well nourished, Well developed, No Acute Distress Head: Normocephalic, Atraumatic Eyes: Perrl, EOMI ENT: Moist mucous membranes, No rhinorrhea Neck: Supple, Nontender Cardiovascular: Regular rate, Regular rhythm, No murmurs Respiratory: No distress, CTA bilaterally, Chest nontender Abdomen: Soft, Nontender, Nondistended, Normal bowel sounds Back: Nontender, Normal Inspection, - - She has pain actually that is in the left of the mid back area there is a appears to be an injection point that is unremarkable soft no signs of infection the rest of her exam is unremarkable her neurologic exam is normal she is moving her lower extremity she is been able to walk per the family but has pain Extremities: Nontender, No edema Skin: Normal color, No rash Neurological: Alert, Oriented x3, Cranial nerves II-XII grossly intact, Normal Strength, Normal Sensation Psychological: Normal affect, Normal Mood Diagnostic/Tx/Re-eval - Medical Decision Making The patient is indicating this is identical pain to what she has had long- standing this condition at this time x-rays are obtained morphine will be prescribed she is asking to be given Percocet to use at home until she is here pain management physicians X-ray per radiology shows the T12 kplasty but also they report an L1 mild superior endplate compression fracture that appears new see that report discussed this with the patient her family discussed inpatient versus outpatient management they are comfortable with going home they understand the require additional management for these conditions she will be given Percocet to use as needed and 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
[2019-04-22] MEDS: Ondansetron ODT 4 MG Tablet 8 MG PO (18:12)
[2019-04-22] MEDS: morphine 8 MG/ML Syringe SC (18:13)
--- NOTE | 2019-04-22 18:20 | RAD_ITS ---
STUDY: X-RAY - LUMBAR SPINE REASON FOR EXAM: Female, 78 years old. Back pain TECHNIQUE: 3 view(s) of the lumbar spine were obtained. COMPARISON: Fluoroscopy images of 04/03/2019 FINDINGS: There is an exaggerated lumbar lordosis. There is no substantial scoliosis. There is a normal alignment of the vertebrae. There is diffuse demineralization with multi-level endplate spondylosis. Normal disc space heights. Compression fracture of T12 with kyphoplasty cement identified. Mild compression of L1 with superior endplate sclerosis appears new since the prior fluoroscopic study. There is atherosclerotic calcification of the abdominal aorta without a demonstrated aneurysm. RAD/Lumbar Spine 2 or 3 Views IMPRESSION: 1. Mild L1 compression involving superior endplate, new since fluoroscopy images of 04/03/2019. MRI recommended. 2. T12 kyphoplasty Electronically Signed: Ed Owen MD ([place]) at 18:37 EDT , Service support ,
[2019-04-22 19:00] VITALS: BP 130/91; PULSE 77; RESP 18; O2SAT 94
[2019-04-22 20:01] VITALS: BP 135/93; PULSE 82; RESP 18; O2SAT 95
== END 2019-04-22 20:02 | disposition home or self-care (01) ==
LOC: ED 18:17
PROVIDERS: Emergency Provider Emergency Medicine; Family Provider Family Medicine; PCP Family Medicine
DX: M80.88XG Other osteoporosis with current pathological fracture, vertebra(e), subsequent encounter for fracture with delayed healing (principal); Z82.49 Family history of ischemic heart disease and other diseases of the circulatory system; Z88.0 Allergy status to penicillin; Z88.1 Allergy status to other antibiotic agents; Z88.2 Allergy status to sulfonamides; Z88.6 Allergy status to analgesic agent; Z90.49 Acquired absence of other specified parts of digestive tract; Z90.710 Acquired absence of both cervix and uterus
CPT/HCPCS: 72100; 96372; 99283

== ENCOUNTER 2019-05-10 16:27 | Emergency (ER) | payer MEDICARE, SELFPAY ==
[2019-05-02 15:32] VITALS: BMI 36.8
[2019-05-10 16:27] VITALS: BP 114/58; PULSE 77; RESP 18; TEMP 36.4; O2SAT 96; BMI 36.9
--- NOTE | 2019-05-10 17:11 | CT_ITS ---
STUDY: CT CHEST WITHOUT CONTRAST REASON FOR EXAM: Female, 78 years old. Fall. History of prior kyphoplasty. RADIATION DOSAGE (If Supplied By Facility): CTDIvol = ( 19.89 ) mGy, DLP = ( 742.14 ) mGycm TECHNIQUE: Transaxial imaging was performed without the administration of intravenous contrast material. Multiplanar coronal and sagittal images were reformatted. Individualized dose optimization techniques were used for this CT. COMPARISON: Chest, February 27, 2019. Thoracic spine, April 03, 2019. FINDINGS: The lungs are normal. There is no demonstrated pleural abnormality. Sternal cerclage wires and vascular clips are present from a prior sternotomy and coronary artery bypass graft procedure (CABG). The heart is normal in size. There are multiple small lymph nodes within the mediastinum, which are normal in size and morphology most compatible with reactive lymph hyperplasia. Normal hilar regions. Normal unenhanced pulmonary arteries. There is atherosclerotic changes of the thoracic aorta without aneurysm. There is diffuse degenerative changes of the thoracic spine. There is a marked compression deformity of T12 with evidence of vertebral augmentation. There is a mild compression deformity of superior endplate of L1 which appears old. The remainder of the vertebral axial heights are maintained. There is no evidence of rib fracture. Median sternotomy wires are seen within the sternal. There is a type I hiatal hernia. Calcified granulomata are seen in both the liver and spleen. Status post cholecystectomy. The upper abdomen is otherwise unremarkable. CT/Chest without Contrast IMPRESSION: 1. No evidence of acute pulmonary disease. 2. Status post CABG procedure. 3. Atherosclerotic changes of the aorta without aneurysm. 4. Hiatal hernia. 5. Degenerative changes of the thoracic spine with compression deformity of T12 with vertebral augmentation. Electronically Signed: Jasbir Sommers DO at 18:08 EDT Tel [phone], Service support ,
--- NOTE | 2019-05-10 17:11 | RAD_ITS ---
STUDY: X-RAY - PELVIS AND RIGHT HIP REASON FOR EXAM: Female, 78 years old. Fall. Right hip pain. TECHNIQUE: 3 views of the pelvis and hip. COMPARISON: None. FINDINGS: There is a non-specific bowel gas pattern. Normal visualized soft tissue structures. There is a surgical clip in the mid pelvis. Normal bilateral iliac wings, sacroiliac joints and visualized sacrum. Normal bilateral superior and inferior pubic rami. Normal pubic symphysis. Normal bilateral ischial tuberosities. Moderate degenerative changes of the left hip. Normal visualized right femoral head. Normal right acetabulum. There is moderate articular joint space narrowing of the right hip. RAD/HIP, UNI W/ Pelvis 2-3 Views IMPRESSION: Moderate degenerative changes of the right hip without acute fracture or dislocation. Electronically Signed: Jasbir Sommers DO at 17:53 EDT Tel [phone], Service support ,
--- NOTE | 2019-05-10 17:11 | CT_ITS ---
STUDY: CT BRAIN WITHOUT CONTRAST REASON FOR EXAM: Female, 78 years old. Fall. RADIATION DOSAGE (If Supplied By Facility): CTDIvol = ( 60.81 ) mGy, DLP = ( 1112.69 ) mGycm TECHNIQUE: Transaxial CT imaging of the brain was performed without administration of intravenous contrast material. Individualized dose optimization techniques were used for this CT. COMPARISON: No relevant priors. FINDINGS: Normal soft tissue structures. Normal calvarium. There is mild cerebral atrophy with widening of the extra-axial spaces and ventricular dilatation. There are areas of decreased attenuation within the white matter tracts of the supratentorial brain, consistent with microvascular disease changes. Normal basal ganglia and thalami. Normal brainstem. Normal cerebellum. There is no intracranial hemorrhage. There are no findings of an acute ischemic infarction. Normal visualized paranasal sinuses. CT/Brain/Head without Contrast IMPRESSION: Chronic involutional changes without evidence of acute intracranial or calvarial abnormality. Electronically Signed: Jasbir Sommers DO at 18:05 EDT Tel [phone], Service support ,
[2019-05-10 17:41] LABS: International Normalized Ratio 1.3; Prothrombin Time (Protime)PT. 15.7 SECONDS (11.7-14.9)
[2019-05-10] MEDS: HYDROcodone Bitartrate/Apap 5/325 Tablet PO (17:46)
[2019-05-10] MEDS: Ondansetron ODT 4 MG Tablet PO (17:51)
--- NOTE | 2019-05-10 18:27 | ED.VISSUMM ---
- ER Visit Summary Date of Service: 05/10/19 Chief Complaint: Fall [] History of Present Illness: The patient is a 78 F [presents with a fall that occurred earlier today. Patient states that she was trying to walk with her walker and was going to climb one step and missed the step and fell backwards. Patient did strike her head but no loss of consciousness. Patient complaining of some pain in her left back as well as her right hip. Patient has been ambulatory since the fall. Patient is on Coumadin. Patient also with history of recent T12 compression fracture with kyphoplasty. Patient history of diabetes, hypertension, coronary artery disease, and CHF. States that she has not had her Coumadin for several days because she was supposed to have a procedure] Physical Examination: [HEENT-PERRLA, EOMI. Cranial nerves II through XII grossly intact. TMs clear. Mucous membranes moist. No adenopathy. No external evidence of trauma to her head. Patient has no C-spine tenderness on palpation. Patient has normal active range of motion is painless. Cardiovascular-regular rate and rhythm without murmur or ectopy Lungs-clear to auscultation, chest wall stable without crepitus or subcu emphysema. Patient does have tenderness palpation over the left posterior ribs without any evidence of ecchymosis or bruising. Abdomen-normoactive bowel sounds, soft, nontender, no rebound or rigidity, no peritoneal signs. Extremities-intact ?4, normal range of motion, normal pulses. Hips-patient has some diffuse tenderness over the hip but there is no ecchymosis or bruising noted. There is no shortening or external rotation of the lower extremity. She is neurovascularly intact.] Test Results: [CT scan of the brain without contrast showed chronic involutional changes. CT of the chest showed essentially nothing acute at the tracheal compression fracture with augmentation. Patient also had x-rays of the right hip and pelvis which showed no fractures and only degenerative changes.] Emergency Department Course and Treatment: [Patient was medicated with Lagrange and given Zofran.] Treatment Plan: [Will be given a prescription for Lagrange for pain. Patient advised to follow-up with primary care physician within next 3 to 5 days.] Disposition: [Discharged home in stable condition.] Impression: [Chemical fall Contusion back/ribs Contusion right hip] This note was generated with Dragon dictation software. It may contain incorrect words, spelling, and punctuation that were not noted in review of the chart prior to signing ED Disposition - Plan for ED Patient: Referrals: Osiel Arzola MD [Primary Care Provider] -
--- NOTE | 2019-05-10 18:30 | ED.DEP ---
ED Disposition - Plan for ED Patient: Instructions: FALL, Mechanical, HEAD INJURY, No Wake-Up (Adult), CONTUSION, Back Prescriptions: Hydrocodone Bitart/Apap 5-325 [[place] 5MG-325MG] 1 tab PO Q4H PRN PRN 2 Days #10 tab PRN Reason: Pain Prescription Printed Referrals: Osiel Arzola MD [Primary Care Provider] - 3-5 Days
[2019-05-10 19:16] VITALS: BP 118/78; PULSE 78; RESP 16; O2SAT 94
== END 2019-05-10 19:16 | disposition home or self-care (01) ==
LOC: ED 17:19
PROVIDERS: Emergency Provider Emergency Medicine; Family Provider Family Medicine; PCP Family Medicine
DX: S70.01XA Contusion of right hip, initial encounter (principal); S20.229A Contusion of unspecified back wall of thorax, initial encounter; W10.9XXA Fall (on) (from) unspecified stairs and steps, initial encounter; M48.54XA Collapsed vertebra, not elsewhere classified, thoracic region, initial encounter for fracture; Z79.01 Long term (current) use of anticoagulants; Z95.1 Presence of aortocoronary bypass graft; E11.9 Type 2 diabetes mellitus without complications; I50.9 Heart failure, unspecified; I25.10 Atherosclerotic heart disease of native coronary artery without angina pectoris; I11.0 Hypertensive heart disease with heart failure
CPT/HCPCS: 70450; 71250; 73502; 85610; 99283

== ENCOUNTER 2019-05-13 20:09 | Emergency (ER) | payer MEDICARE, SELFPAY ==
[2019-05-13 20:10] VITALS: BP 142/85; PULSE 89; RESP 19; TEMP 36.9; O2SAT 97; BMI 37.0
[2019-05-13 20:30] VITALS: O2SAT 98
--- NOTE | 2019-05-13 20:41 | RAD_ITS ---
STUDY: X-RAY CHEST REASON FOR EXAM: Female, 78 years old. Chest pain. TECHNIQUE: Portable chest. COMPARISON: 02/27/2019. FINDINGS: Sternotomy wires are present. The lungs are clear and expanded. There is no demonstrated pleural abnormality. Normal size heart. Normal mediastinum and pranay. Normal visualized pulmonary arteries. Normal visualized aortic arch and descending thoracic aorta. Normal visualized thoracic spine. Normal visualized ribs, clavicles, and shoulders. There is no demonstrated abnormality of the visualized soft tissue structures of the upper abdomen. RAD/Chest 1 View (Portable) IMPRESSION: Normal x-ray examination of the chest. Electronically Signed: Laura Hodge MD at 21:08 EDT Tel , Service support ,
--- NOTE | 2019-05-13 20:41 | EKG12_ITS ---
Test Reason : CP Blood Pressure : / mmHG Vent. Rate : 082 BPM Atrial Rate : 082 BPM P-R Int : 186 ms QRS Dur : 138 ms QT Int : 414 ms P-R-T Axes : 057 -14 -23 degrees QTc Int : 483 ms Sinus rhythm with Premature supraventricular complexes Non-specific intra-ventricular conduction block Cannot rule out Anterior infarct , age undetermined Abnormal ECG Confirmed by KALE YADAV, MISTY ([id number]), restaurant expeditor TERESA FERGUSON ([id number]) on 05/17/2019 12:11:38 PM Referred By: REINA Confirmed By:MISTY HENLEY MD
--- NOTE | 2019-05-13 20:42 | ED.DCSUM_ITS ---
- ER Visit Summary Date of Service: 05/13/19 Chief Complaint: Chest discomfort and left lateral rib discomfort History of Present Illness: The patient is a 78 F 3 of CAD with prior [place]. Also T12 compression fracture with kyphoplasty. Patient fell a week ago injuring her left posterior ribs. States tonight around 5 PM surrogate lower chest discomfort across her chest. Associated nausea. Denies vomiting or diarrhea. No fever cough not associated with exertion. Physical Examination: Older female no acute distress vital signs stable afebrile. Pulse ox 97% on room air no signs of hypoxia. H EENT exam unremarkable. Neck nontender. Lungs clear to auscultation. Heart regular rhythm no murmur. Abdomen soft nontender normal bowel sounds no peritoneal signs. Both upper quadrant completely nontender and there is no signs of trauma to the abdomen. There is no peritoneal signs. Chest wall anteriorly has mild tenderness. There is no ecchymosis or bruising. Pelvic girdle intact. Extremities moving all 4. Neurovascular intact. She has a moderate-sized bruise in the left lower leg from the fall on Wednesday. Back spine is nontender left lateral posterior ribs are tender to palpation without crepitance or subcu air. Neurologically she is awake and alert. Test Results: CBC unremarkable white count of 5 hemoglobin 11 which is her baseline. Chemistries normal normal gap and creatinine. Liver enzymes normal. Lipase normal. INR 1.7. Troponin normal. Chest x-ray one view portable read both by myself and the radiologist shows no acute abnormality. Prior sternotomy. Of note she did have a CAT scan of her chest done the other day when she fell and that showed no rib fractures. EKG showed a sinus rhythm rate 82 with left bundle branch block. Unchanged from prior EKG from February. Emergency Department Course and Treatment: Patient with atypical chest pain that may be chest wall pain. Versus cardiac etiology versus other. She undergo cardiac work-up. She will receive IV morphine and Zofran for pain. Repeat exam she is doing well at 11:06 PM. Discussed all test results with her and her family. Repeat exam unchanged. She was up walking about the room. Discussed with her daughter and she requested I write her for something for pain for home and stated the Percocet seemed to control her pain better. Treatment Plan: Percocet No. 10 no refill for pain. Follow-up with your doctor. Return if worse. Disposition: dc Impression: Acute chest pain secondary to chest wall pain Status post fall with left posterior rib cage pain This note was generated with [employer] dictation software. It may contain incorrect words, spelling, and punctuation that were not noted in review of the chart prior to signing ED Disposition - Plan for ED Patient: Referrals: Osiel Arzola MD [Primary Care Provider] -
[2019-05-13] MEDS: Ondansetron 4 MG/2 ML Vial IV (21:05)
[2019-05-13] MEDS: Morphine 4 MG/ML Syringe IV (21:05)
[2019-05-13 21:12] LABS: Absolute Lymphocyte Count 2.33 X10^3/uL (0.83-4.51); Absolute Neutrophil Count 2.7 X10^3/uL (2.0-7.7); Basophil# 0.01 X10^3/uL; Basophil% 0.2 % (0-1); Eosinophil# 0.08 X10^3/uL; Eosinophils% 1.4 % (0-5); Hematocrit 35.2 % (37-47); Hemoglobin 11.3 g/dL (12.0-15.0); Lymphocyte # 2.33 X10^3/ul (4.0); Lymphocyte % 41.7 % (19-41); Mean Corp Hgb Conc 32.1 g/dL (32-36); Mean Corpuscular Hgb 29.4 pg (27.0-32.0); Mean Corpuscular Volume 91.4 fL (81-99); Mean Platelet Vol. 11.5 fl (6.2-12.0); Monocyte# 0.42 X10^3/uL; Monocyte% 7.5 % (0-10); NRBC Flagged by Analyzer 0 % (0-5); Neutrophil # 2.72 X10^3/uL (2.7-7.7); Neutrophil % 48.7 % (47-70); Platelet Count 140 K/mm3 (150-450); RBC Distribution Width CV 15.8 % (11.6-14.6); RBC Distribution Width SD 53.2 fl (35.1-43.9); Red Blood Count 3.85 M/mm3 (4.2-5.4); White Blood Count 5.6 K/mm3 (4.4-11.0)
[2019-05-13 21:16] LABS: International Normalized Ratio 1.7; Prothrombin Time (Protime)PT. 20.2 SECONDS (11.7-14.9)
[2019-05-13 21:26] LABS: Anion Gap 7 (5-15); BUN 11 mg/dL (7-18); BUN/Creat Ratio 11.4 RATIO (10-20); Calcium,Total 9.4 mg/dL (8.5-10.1); Chloride 106 mmol/L (98-107); Creatinine, Serum 0.96 mg/dL (0.55-1.02); EST Glomerular Filtration Rate 59 mL/min (>60); Est Glom Filt Rate - Afr Amer 72 mL/min (>60); Estimated Creatinine Clearance 42.06 ml/min; Glucose 134 mg/dL (74-106); Lipase 87 U/L (73-393); Potassium 3.7 mmol/L (3.5-5.1); Sodium Level 140 mmol/L (136-145)
[2019-05-13 21:27] LABS: AST(SGOT) 18 U/L (15-37); Alanine Aminotransfer ALT/SGPT 18 U/L (13-56); Albumin, Serum 3.5 g/dL (3.2-5.0); Alkaline Phosphatase 99 U/L (45-117); Bilirubin, Direct 0.14 mg/dL (0.00-0.30); Globulin 3.9 g/dL (2.2-4.2); Protein, Total 7.4 g/dL (6.4-8.2)
[2019-05-13 22:09] VITALS: BP 158/77; PULSE 75; RESP 15; O2SAT 98
--- NOTE | 2019-05-13 23:10 | ED.DEP ---
ED Disposition - Plan for ED Patient: Disposition: Home or Assisted Living Instructions: CONTUSION, Back Prescriptions: Oxycodone HCl/Acetaminophen [Percocet 5-325 mg Tablet] 1 ea PO Q6H PRN PRN 5 Days #14 tab PRN Reason: Pain Score 1-10/10 Prescription Printed Referrals: Osiel Arzola MD [Primary Care Provider] - As Needed Additional Instructions: Percocet for pain. Plenty of fluids and fruits, vegetables and fiber to prevent constipation. Stool softener as needed. Follow-up with your doctor as needed. Return if worse.
[2019-05-13 23:25] VITALS: BP 156/72; PULSE 76; RESP 18; O2SAT 97
== END 2019-05-13 23:26 | disposition home or self-care (01) ==
PROVIDERS: Emergency Provider Emergency Medicine; Family Provider Family Medicine; PCP Family Medicine
DX: R07.89 Other chest pain (principal); I25.10 Atherosclerotic heart disease of native coronary artery without angina pectoris; I25.2 Old myocardial infarction; I49.1 Atrial premature depolarization; M48.54XA Collapsed vertebra, not elsewhere classified, thoracic region, initial encounter for fracture; I44.7 Left bundle-branch block, unspecified
CPT/HCPCS: 71045; 80048; 80076; 83690; 84484; 85025; 85610; 93005; 96374; 96375; 99285; A4216; J2405

== ENCOUNTER 2019-05-28 19:19 | Inpatient (IN) | payer MEDICARE, SELFPAY ==
[2019-05-28 19:20] VITALS: BP 145/69; PULSE 89; RESP 16; TEMP 36.8; O2SAT 96; BMI 35.9
--- NOTE | 2019-05-28 20:13 | EKG12_ITS ---
Test Reason : CHEST OTHER Blood Pressure : / mmHG Vent. Rate : 077 BPM Atrial Rate : 077 BPM P-R Int : 202 ms QRS Dur : 134 ms QT Int : 414 ms P-R-T Axes : 035 -18 -25 degrees QTc Int : 468 ms Normal sinus rhythm Non-specific intra-ventricular conduction block Cannot rule out Anterior infarct , age undetermined Abnormal ECG Confirmed by EILEEN IRIZARRY ([id number]), legal editor DIANA STEWART ([id number] on 05/31/2019 8:33:09 AM Referred By: Tank Cummings Confirmed By:EILEEN IRIZARRY
--- NOTE | 2019-05-28 20:13 | RAD_ITS ---
STUDY: X-RAY CHEST REASON FOR EXAM: Female, 78 years old. Left-sided chest pain. TECHNIQUE: Single frontal view of the chest. COMPARISON: May 13, 2019 FINDINGS: There is no new focal consolidation. There is stable left basilar atelectasis and/or scarring. Sternal cerclage wires are present from a prior sternotomy. There is stable borderline cardiomegaly. Normal mediastinum and pranay. Normal visualized pulmonary arteries. Normal visualized aortic arch and descending thoracic aorta. Normal visualized thoracic spine. Normal visualized ribs, clavicles, and shoulders. There is no demonstrated abnormality of the visualized soft tissue structures of the upper abdomen. RAD/Chest 1 View (Portable) IMPRESSION: Stable examination demonstrating no acute cardiopulmonary process. Electronically Signed: Loretta Arredondo MD at 20:46 EDT Tel , Service support ,
[2019-05-28 20:31] LABS: Absolute Lymphocyte Count 2.02 X10^3/uL (0.83-4.51); Absolute Neutrophil Count 2.7 X10^3/uL (2.0-7.7); Basophil# 0.01 X10^3/uL; Basophil% 0.2 % (0-1); Eosinophil# 0.04 X10^3/uL; Eosinophils% 0.8 % (0-5); Hematocrit 35.2 % (37-47); Hemoglobin 11.1 g/dL (12.0-15.0); Lymphocyte # 2.02 X10^3/ul (4.0); Lymphocyte % 39.2 % (19-41); Mean Corp Hgb Conc 31.5 g/dL (32-36); Mean Corpuscular Hgb 29.5 pg (27.0-32.0); Mean Corpuscular Volume 93.6 fL (81-99); Mean Platelet Vol. 11.7 fl (6.2-12.0); Monocyte# 0.39 X10^3/uL; Monocyte% 7.6 % (0-10); NRBC Flagged by Analyzer 0 % (0-5); Neutrophil # 2.65 X10^3/uL (2.7-7.7); Neutrophil % 51.4 % (47-70); Platelet Count 147 K/mm3 (150-450); RBC Distribution Width CV 15.9 % (11.6-14.6); RBC Distribution Width SD 54.2 fl (35.1-43.9); Red Blood Count 3.76 M/mm3 (4.2-5.4); White Blood Count 5.2 K/mm3 (4.4-11.0)
[2019-05-28 20:42] LABS: International Normalized Ratio 1.9; Prothrombin Time (Protime)PT. 21.5 SECONDS (11.7-14.9)
[2019-05-28 20:47] LABS: Mucous, Urine 0 SEEN /hpf (<or=2+)
[2019-05-28 20:57] LABS: Anion Gap 7 (5-15); BUN 14 mg/dL (7-18); BUN/Creat Ratio 12.8 RATIO (10-20); Calcium,Total 9.1 mg/dL (8.5-10.1); Chloride 105 mmol/L (98-107); Creatinine, Serum 1.09 mg/dL (0.55-1.02); EST Glomerular Filtration Rate 51 mL/min (>60); Est Glom Filt Rate - Afr Amer 62 mL/min (>60); Estimated Creatinine Clearance 38.54 ml/min; Glucose 126 mg/dL (74-106); Potassium 3.8 mmol/L (3.5-5.1); Sodium Level 140 mmol/L (136-145)
[2019-05-28 21:10] LABS: Color, Urine Yellow (Yellow); Glucose, Dipstick Normal (Normal); Ketone-Dipstick 5 mg/dl (Negative); Leukocyte Esterase-Dipstick 100 /ul (Negative); Nitrite-Dipstick Positive (Negative); Occult Blood-Urine 25 /ul (Negative); Protein-Dipstick 30 mg/dl (Negative); Urine Bilirubin Dipstick Negative (Negative); Urine Clarity Sl Cloudy (Clear); Urine Urobilinogen Normal (Normal); Urine pH 6.5 (5.0 - 8.0)
[2019-05-28 21:11] LABS: Red Blood Cells-Urine 0-5 SEEN /hpf (0-5); Squamous Epithelial Cells - UA 0-5 SEEN /hpf (5-10); White Blood Cells 25-50 SEEN /hpf (0-5)
[2019-05-28 21:12] LABS: Bacteria 3+ /hpf (None Seen)
[2019-05-28] MEDS: 0.9% Normal Saline 1,000 ML 150 ML IV (21:12)
[2019-05-28] MEDS: Ondansetron 4 MG/2 ML Vial IV (21:12)
[2019-05-28] MEDS: Morphine 4 MG/ML Syringe IV (21:13)
--- NOTE | 2019-05-28 21:49 | ED.VISSUMM ---
- ER Visit Summary Date of Service: 05/28/19 Chief Complaint: [Chest pain] History of Present Illness: The patient is a 78 F [resents to the emergency department complaint of pain underneath her left breast is been intermittent for about a week. Patient states that it is a sharp stabbing pain that lasts a few seconds and then resolves. Currently she is not having pain in her chest. Patient also has had chronic back pain issues and is complaining of severe low back pain. Patient fell 3 weeks ago and was seen in the ER at that time. Patient has history of compression fracture T12 with kyphoplasty. Patient has been having nausea but no vomiting. She denies urinary symptoms.] Physical Examination: [HEENT-PERRLA, EOMI. Cranial nerves II through XII grossly intact. TMs clear. Mucous membranes moist. No adenopathy. Cardiovascular-regular rate and rhythm without murmur or ectopy Lungs-clear to auscultation, chest wall stable without crepitus or subcu emphysema Abdomen-normoactive bowel sounds, soft, nontender, no rebound or rigidity, no peritoneal signs. Back exam-patient has diffuse tenderness palpation over the lumbar paraspinal musculature as well as the lumbar spine. There is no erythema or warmth noted. Negative straight leg raises. Deep tendon reflexes are plus 1 out of 4 bilaterally at the patella and Achilles. Patient has normal L5 extension bilaterally. Extremities-intact ?4, normal range of motion, normal pulses, atraumatic] Test Results: [KG obtained on arrival showed sinus rhythm with a ventricular rate of 77 bpm with nonspecific intraventricular block. CBC with differential obtained showed a white count of 5.2, hemoglobin 11, hematocrit 35, platelets 147. Chemistries unremarkable. Urinalysis was positive for nitrites as well as 25-50 WBCs and +3 bacteria. Urine culture was sent. Troponin was less than 0.15. Chest x-ray showed nothing acute.] Emergency Department Course and Treatment: [Patient was medicated with morphine and Zofran IV. Patient was started on Rocephin 1 g IV.] Treatment Plan: [Admit for pain control and IV antibiotics] Disposition: [Admit] Impression: [Chest pain UTI Acute exacerbation of chronic back pain] This note was generated with [employer] software. It may contain incorrect words, spelling, and punctuation that were not noted in review of the chart prior to signing ED Disposition - Plan for ED Patient: Referrals: Osiel Arzola MD [Primary Care Provider] -
[2019-05-28 22:03] VITALS: BP 156/74; PULSE 79; RESP 15; O2SAT 94
[2019-05-28] MEDS: Ceftriaxone 1 GM/50 ML BAG IV (22:03)
--- NOTE | 2019-05-28 23:06 | HP.PCM_ITS ---
Problem List (1) Atypical chest pain Status: Acute (2) Acute on recurrent UTI Status: Acute (3) Primary osteoarthritis of left knee Status: Chronic (4) Back pain Status: Acute (5) Back spasm Status: Chronic (6) Compression fracture of T12 vertebra Status: Chronic (7) Pure hypercholesterolemia Status: Chronic (8) LBBB (left bundle branch block) Status: Chronic (9) Aortocoronary bypass status Status: Chronic Comment: CABG x6- Sequential SVG in Sequence to the LAD, Descending Diagonal, CX/CX, and RCA/RCA 10/09/02 (10) Atherosclerotic heart disease of [place] coronary artery without angina pectoris Status: Chronic Qualifiers: [place] vs. transplanted heart: [place] heart Qualified Code(s): I25.10 - Atherosclerotic heart disease of [place] coronary artery without angina pectoris (11) Atherosclerosis of coronary artery bypass graft(s), unspecified, with other forms of angina pectoris Status: Chronic Comment: CABG x6- Sequential SVG in Sequence to the LAD, Descending Diagonal, CX/CX, and RCA/RCA 10/09/02 (12) 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 Status: Chronic (13) MCFP current use of anticoagulant Status: Chronic (14) NSTEMI (non-ST elevated myocardial infarction) Status: Resolved Comment: 03/01 (15) Benign hypertension Status: Chronic (16) Obesity Status: Chronic (17) Diabetes mellitus, type 2 Status: Chronic (18) Systolic CHF, chronic Status: Chronic (19) Thromboembolic disorder Status: Chronic (20) Ischemic cardiomyopathy Status: Chronic History of Present Illness Date of Admission: 05/28/19 Chief Complaint: Back pain and atypical left-sided chest pain The patient is a 78 year old F with multiple comorbidities including CAD s/p CABG X 6; HTN; DM 2; Ischemic Cardiomyopathy with last admission in February 2019 for similar chest pain and back pain came to ED with back pain and also left her chest pain. She described her back pain mainly over L1-L2, localized without radiation to lower extremities. Patient does not have numbness or tingling or sciatica pain. She has chronic left-sided chest pain states after left breast reduction surgery most probably from scar tissue. During previous admission, since her chest pain was resolved and she did not want a stress test as she was told by cardiology that she is not a candidate for any further stress test. In ED, temperature 97.4 vitals were stable. Labs were by and large at baseline. H&H 11.1/35.2. Creatinine 1.09. UA is positive of LE 100, nitrite positive WBC 25-50 cells with bacteria. She denies dysuria and states he never had dysuria event she gets UTI but has increased frequency and urgency. Clinical Impression(s) from Imaging Studies Chest X-Ray 05/28/19 20:13 IMPRESSION: Stable examination demonstrating no acute cardiopulmonary process. Laboratory Results 05/28/19 20:24: WBC 5.2, RBC 3.76 L, Hgb 11.1 L, Hct 35.2 L, MCV 93.6, MCH 29.5, MCHC 31.5 L, RDW Std Deviation 54.2 H, RDW Coeff of Maty 15.9 H, Plt Count 147 L, MPV 11.7, Immature Gran % (Auto) 0.800, Neut % (Auto) 51.4, Lymph % (Auto) 39.2, Harding % (Auto) 7.6, Eos % (Auto) 0.8, Baso % (Auto) 0.2, Absolute Neuts (auto) 2.7, Absolute Lymphs (auto) 2.02, Nucleated RBC % 0 05/28/19 20:24: PT 21.5 H, INR 1.9 05/28/19 20:24: Sodium 140, Potassium 3.8, Chloride 105, Carbon Dioxide 28.0, Anion Gap 7, BUN 14, Creatinine 1.09 H, Estim Creat Clear Calc 38.54, Est GFR (MDRD) Af Amer 62, Est GFR (MDRD) Non-Af 51 L, BUN/Creatinine Ratio 12.8, Glucose 126 H, Calcium 9.1, Troponin I < 0.015 05/28/19 20:44: Urine Color Yellow, Urine Clarity Sl Cloudy, Urine pH 6.5, Ur Specific Harwood 1.010, Urine Protein 30 H, Urine Glucose (UA) Normal, Urine Ketones 5 H, Urine Occult Blood 25 H, Urine Nitrite Positive H, Urine Bilirubin Negative, Urine Urobilinogen Normal, Ur Leukocyte Esterase 100 H, Urine RBC 0-5 SEEN, Urine WBC 25-50 SEEN, Ur Squamous Epith Cells 0-5 SEEN, Urine Bacteria 3+, Urine Mucus 0 SEEN [] Past Medical History Past Medical History (Chronic Problems): Chronic Problems (Last Updated 05/02/19 @ 15:56 by VERNA Best) Primary osteoarthritis of left knee (Chronic) Back spasm (Chronic) Compression fracture of T12 vertebra (Chronic) Pure hypercholesterolemia (Chronic) LBBB (left bundle branch block) (Chronic) Aortocoronary bypass status (Chronic ~10/09/02) CABG x6- Sequential SVG in Sequence to the LAD, Descending Diagonal, CX/CX, and RCA/RCA 10/09/02 Atherosclerotic heart disease of [place] coronary artery without angina pectoris (Chronic) Atherosclerosis of coronary artery bypass graft(s), unspecified, with other forms of angina pectoris (Chronic) CABG x6- Sequential SVG in Sequence to the LAD, Descending Diagonal, CX/CX, and RCA/RCA 10/09/02 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 (Chronic) MCFP current use of anticoagulant (Chronic) Benign hypertension (Chronic) Obesity (Chronic) Diabetes mellitus, type 2 (Chronic) Systolic CHF, chronic (Chronic) Thromboembolic disorder (Chronic) Ischemic cardiomyopathy (Chronic) Medical History: Medical History (Last Updated 05/02/19 @ 15:56 by VERNA Best) Pure hypercholesterolemia (Chronic) E78.00 LBBB (left bundle branch block) (Chronic) I44.7 Atherosclerotic heart disease of [place] coronary artery without angina pectoris (Chronic) I25.10 Atherosclerosis of coronary artery bypass graft(s), unspecified, with other forms of angina pectoris (Chronic) I25.708 CABG x6- Sequential SVG in Sequence to the LAD, Descending Diagonal, CX/CX, and RCA/RCA 10/09/02 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 (Chronic) R09.89 MCFP current use of anticoagulant (Chronic) Z79.01 NSTEMI (non-ST elevated myocardial infarction) (Resolved) I21.4 03/01 Benign hypertension (Chronic) I10 Obesity (Chronic) E66.9 Diabetes mellitus, type 2 (Chronic) E11.9 Systolic CHF, chronic (Chronic) I50.22 Thromboembolic disorder (Chronic) I74.9 Ischemic cardiomyopathy (Chronic) I25.5 Abnormal stress test R94.39 GERD (gastroesophageal reflux disease) K21.9 History of DVT (deep vein thrombosis) Z86.718 History of esophageal stricture Z87.19 History of pulmonary embolism Z86.711 History of left heart catheterization Z98.890 03/19/14 Hyperlipidemia (Inactive) E78.5 Allergies Sulfa (Sulfonamide Antibiotics) Allergy (Verified 05/28/19 19:22) Rash doxycycline Adverse Reaction (Mild, Verified 05/28/19 19:22) Swelling cephalexin monohydrate [From Keflex] Adverse Reaction (Verified 05/28/19 19:22) Upset Stomach dicyclomine Adverse Reaction (Verified 05/28/19 19:22) Other NSAIDS (Non-Steroidal Anti-Inflamma Adverse Reaction (Verified 05/28/19 19:22) Other Penicillins Adverse Reaction (Verified 05/28/19 19:22) Unknown tetracycline [Tetracycline] Adverse Reaction (Verified 05/28/19 19:22) Swelling Home Medications: Ambulatory Orders Medication Instructions Recorded Aspirin E.C. [Ecotrin] 81 mg PO DAILY@0800 03/08/17 Calcium Carbonate/Vitamin D3 1 ea PO BID 03/08/17 [Calcium 500-Vit D3 600 Caplet] Gabapentin [Neurontin] 600 mg PO 4X/DAY 03/08/17 Omeprazole [Prilosec] 20 mg PO BID 03/08/17 Cyanocobalamin [Vitamin B12] 500 mcg PO DAILY@0800 12/07/17 furosemide 40 mg tablet 40 mg PO DAILY #90 tab 07/18/18 rosuvastatin 40 mg tablet 40 mg PO DAILY #90 tab 09/28/18 warfarin 3 mg tablet 3 mg PO .COMPLEX tab 12/13/18 nitroglycerin 0.4 mg sublingual 0.4 mg SUBLINGUAL Q5-15M PRN #25 12/30/18 tablet tab Methocarbamol 500 mg PO PRN PRN 02/27/19 Ubidecarenone [Coq-10] 100 mg PO DAILY 04/22/19 DiphenhydrAMINE [Benadryl] mg PO QHS 05/28/19 Isosorbide Mononitrate [Imdur] 120 mg PO DAILY 05/28/19 Losartan Potassium 50 mg PO QDAY 05/28/19 Metoprolol(XL)Succ [Toprol Xl 100 mg PO DAILY 05/28/19 (Beta Jessica)] Surgical History: Surgical History (Last Reviewed 05/02/19 @ 15:56 by VERNA Best) Aortocoronary bypass status (Chronic) Onset Date: ~10/09/02 Z95.1 CABG x6- Sequential SVG in Sequence to the LAD, Descending Diagonal, CX/CX, and RCA/RCA 10/09/03 H/O arthroscopic knee surgery Z98.890 left knee 2001 History of partial knee replacement Z96.659 right History of total hysterectomy Z90.710 History of tubal ligation Z98.51 Hx of bilateral breast reduction surgery Z98.890 Hx of cholecystectomy Z90.49 Surgical History: appendectomy, cholecystectomy, coronary bypass surgery - 2002, hysterectomy, - - Breast reduction, right knee partial replacement, left knee repair, perforated bowel repair. 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 Smoking Status: Never smoker - *Family History Maternal Family History: Family History (Last Reviewed 05/02/19 @ 15:56 by VERNA Best) Mother Myocardial infarction Hypertension Heart disease History of coronary artery bypass graft Brother Hypertension History of coronary artery bypass graft Father Cancer History Items: Heart Disease, Hypertension Paternal Family History: Family History (Last Reviewed 05/02/19 @ 15:56 by VERNA Best) Mother Myocardial infarction Hypertension Heart disease History of coronary artery bypass graft Brother Hypertension History of coronary artery bypass graft Father Cancer History Items: Cancer Review of Systems Constitutional: Denies: Chills, Fever, Weight Change HEENT: Denies: Head Aches, Sinus Congestion, Sinus Drainage Cardiovascular: Reports: Chest Pain - Left infra mammary region after breast reduction surgery. Denies: Palpitations Respiratory: Denies: Cough, Shortness of breath at rest, Sputum production Gastrointestinal: Denies: Abdominal Pain, Nausea, Vomiting Genitourinary: Reports: Frequency, Hesitancy, Urgency. Denies: Dysuria Musculoskeletal: Reports: Back Pain, Joint Pain. Denies: Joint Tenderness Skin: Denies: Rash, Wounds Neurological: Reports: Balance problems. Denies: Focal weakness, Numbness, Tingling Psychiatric: Reports: Anxiety, Depression. Denies: Homicidal Ideations, Suicidal Ideations Hematologic/ Lymphatic: Denies: Easy Bruising, Easy Bleeding VTE Information - Inpt Only VTE Present on Admission: No VTE Mechan Device Prophylaxis: None VTE Pharm Prophylaxis ordered?: No Reason prophylaxis not ordered:: Procedure Not Indicated Patient Problems: Active and Suspected Problems (Last Updated 05/02/19 @ 15:56 by VERNA Best) Atypical chest pain (Acute) Acute on recurrent UTI (Acute) - Physical Exam General: Alert, Oriented x3, Cooperative HEENT: Atraumatic, PERRLA, EOMI, Normocephalic Neck: Supple, No JVD, Negative Carotid Bruits, - Lungs: Clear to auscultation, Normal air movement, No rhonchi, No wheeze, No rales Cardiovascular: Regular rate, Regular Rhythm, Normal S1, Normal S2, No murmurs, - - Localized tenderness over left chest, reproducible. Abdomen: Bowel Sounds Present, Soft, Non Tender, Non-Distended Extremities: Capillary Refill Less than 3 Seconds, Edema - Mild edema Skin: No rashes, No breakdown Musculoskeletal: Arthritic Changes, Tenderness - Tenderness over T12, L1 and L2 vertebrae. Neurological: Cranial nerves II-XII grossly intact, Deep Tendon Reflexes 2+/4 and Symmetrical, Neuro grossly intact Psych/Mental Status: Normal Affect, Appropriate Vital Signs Temp Pulse Resp BP Pulse Ox 98.3 F 79 15 156/74 H 94 05/28/19 19:20 05/28/19 22:03 05/28/19 22:03 05/28/19 22:03 05/28/19 22:03 Oxygen Delivery Method Room Air Weight: 223 lb Body Mass Index (BMI) 35.9 Intake and Output for Last 24 Hours 05/26/19 05/27/19 05/28/19 23:59 23:59 23:59 Intake Total 50 / 50 Balance 50 / 50 Laboratory Tests Past 24 Hrs 05/28/19 05/28/19 05/28/19 20:24 20:24 20:24 WBC 5.2 RBC 3.76 L Hgb 11.1 L Hct 35.2 L MCV 93.6 MCH 29.5 MCHC 31.5 L RDW Std Deviation 54.2 H RDW Coeff of Maty 15.9 H Plt Count 147 L MPV 11.7 Immature Gran % (Auto) 0.800 Neut % (Auto) 51.4 Lymph % (Auto) 39.2 Harding % (Auto) 7.6 Eos % (Auto) 0.8 Baso % (Auto) 0.2 Absolute Neuts (auto) 2.7 Absolute Lymphs (auto) 2.02 Nucleated RBC % 0 PT 21.5 H INR 1.9 Sodium 140 Potassium 3.8 Chloride 105 Carbon Dioxide 28.0 Anion Gap 7 BUN 14 Creatinine 1.09 H Estim Creat Clear Calc 38.54 Est GFR (MDRD) Af Amer 62 Est GFR (MDRD) Non-Af 51 L BUN/Creatinine Ratio 12.8 Glucose 126 H Calcium 9.1 Troponin I < 0.015 Urine Color Urine Clarity Urine pH Ur Specific Harwood Urine Protein Urine Glucose (UA) Urine Ketones Urine Occult Blood Urine Nitrite Urine Bilirubin Urine Urobilinogen Ur Leukocyte Esterase Urine RBC Urine WBC Ur Squamous Epith Cells Urine Bacteria Urine Mucus 05/28/19 20:44 WBC RBC Hgb Hct MCV MCH MCHC RDW Std Deviation RDW Coeff of Maty Plt Count MPV Immature Gran % (Auto) Neut % (Auto) Lymph % (Auto) [place] % (Auto) Eos % (Auto) Baso % (Auto) Absolute Neuts (auto) Absolute Lymphs (auto) Nucleated RBC % PT INR Sodium Potassium Chloride Carbon Dioxide Anion Gap BUN Creatinine Estim Creat Clear Calc Est GFR (MDRD) Af Amer Est GFR (MDRD) Non-Af BUN/Creatinine Ratio Glucose Calcium Troponin I Urine Color Yellow Urine Clarity Sl Cloudy Urine pH 6.5 Ur Specific [place] 1.010 Urine Protein 30 H Urine Glucose (UA) Normal Urine Ketones 5 H Urine Occult Blood 25 H Urine Nitrite Positive H Urine Bilirubin Negative Urine Urobilinogen Normal Ur Leukocyte Esterase 100 H Urine RBC 0-5 SEEN Urine WBC 25-50 SEEN Ur Squamous Epith Cells 0-5 SEEN Urine Bacteria 3+ Urine Mucus 0 SEEN Assessment/Plan All Active Problems (Last Updated 05/02/19 @ 15:56 by VERNA Best) Atypical chest pain (Acute) Acute on recurrent UTI (Acute) Back pain (Acute) NSTEMI (non-ST elevated myocardial infarction) (Resolved) The patient is a 78 year old F with multiple comorbidities including CAD s/p CABG X 6; HTN; DM 2; Ischemic Cardiomyopathy with last admission in February 2019 for similar chest pain and back pain came to ED with back pain and also left her chest pain. She described her back pain mainly over L1-L2, localized without radiation to lower extremities Labs were by and large at baseline. H&H 11.1/35.2. Creatinine 1.09. UA is positive of LE 100, nitrite positive WBC 25-50 cells with bacteria. She denies dysuria and states he never had dysuria event she gets UTI but has increased mily quency and urgency. 1. Atypical left-sided chest pain most likely musculoskeletal as it is reproducible: Patient is being admitted in PCU. Serial troponin enzymes. Patient has history of coronary artery disease status post CABG but never had a stents after CABG. Continue home cardiac medications aspirin, MDR, losartan, metoprolol and rosuvastatin. Nitro sublingual as needed for chest pain. When discussed about the patient why she cannot have stress test. She said Dr. garrett who she was seeing before Dr. Patricia now told her that she cannot have a stress test and she does not know the lesion. Discussed with Dr. Patricia and he advised to put a consult to see morning. 2. Severe, acute on chronic back pain: Patient follows Dr. Encarnacion, pain management. PT and OT ordered. On pain medications. Flexeril 10 mg p.o. 3 times daily as needed for back spasm. 3. Paroxysmal A. fib: EKG shows normal sinus rhythm with left bundle branch block, QRS 134 ms with intraventricular delay with old deep Q waves in V1 to V3, QRS 134 ms. No significant change from the previous EKG of April 2019. Patient is on warfarin 4 mg daily. INR 1.9. Currently normal sinus rhythm. Repeat EKG reviewed. No change from the previous EKG. Normal sinus rhythm at 72 bpm with deep Q waves in V2 to V3, QRS 136 ms. 4. Acute on recurrent UTI: Patient states she gets recurrent UTI, about more t saldana 3 times per ER previous urine culture in January 2017 shows E. coli is pansensitive. Kidneys and bladder ultrasound ordered. Bladder scan for postvoid residual. On IV ceftriaxone. 5. Other comorbidities include chronic systolic heart failure with ischemic cardiomyopathy, hypertension, diabetes mellitus type 2: Home medications reconciliation done. Glucose is controlled, 126 in BMP. Accu-Cheks before meals and at bedtime and cover with Humalog sliding scale. A1c tomorrow a.m. Blood pressure is controlled. DVT prophylaxis: On warfarin. INR 1.9. Clinical Impression(s) from Imaging Studies Chest X-Ray 05/28/19 20:13 IMPRESSION: Stable examination demonstrating no acute cardiopulmonary process. Laboratory Results 05/28/19 20:24: WBC 5.2, RBC 3.76 L, Hgb 11.1 L, Hct 35.2 L, MCV 93.6, MCH 29.5, MCHC 31.5 L, RDW Std Deviation 54.2 H, RDW Coeff of Maty 15.9 H, Plt Count 147 L, MPV 11.7, Immature Gran % (Auto) 0.800, Neut % (Auto) 51.4, Lymph % (Auto) 39.2, Harding % (Auto) 7.6, Eos % (Auto) 0.8, Baso % (Auto) 0.2, Absolute Neuts (auto) 2.7, Absolute Lymphs (auto) 2.02, Nucleated RBC % 0 05/28/19 20:24: PT 21.5 H, INR 1.9 05/28/19 20:24: Sodium 140, Potassium 3.8, Chloride 105, Carbon Dioxide 28.0, Anion Gap 7, BUN 14, Creatinine 1.09 H, Estim Creat Clear Calc 38.54, Est GFR (MDRD) Af Amer 62, Est GFR (MDRD) Non-Af 51 L, BUN/Creatinine Ratio 12.8, Glucose 126 H, Calcium 9.1, Troponin I < 0.015 05/28/19 20:44: Urine Color Yellow, Urine Clarity Sl Cloudy, Urine pH 6.5, Ur Specific [place] 1.010, Urine Protein 30 H, Urine Glucose (UA) Normal, Urine Ketones 5 H, Urine Occult Blood 25 H, Urine Nitrite Positive H, Urine Bilirubin Negative, Urine Urobilinogen Normal, Ur Leukocyte Esterase 100 H, Urine RBC 0-5 SEEN, Urine WBC 25-50 SEEN, Ur Squamous Epith Cells 0-5 SEEN, Urine Bacteria 3+, Urine Mucus 0 SEEN Code Visit OBSV E&M: [id number] Initial observation care L3
[2019-05-28 23:08] VITALS: BMI 34.9
--- NOTE | 2019-05-28 23:28 | NURSING ---
Pt unsure of last pneumonia shot.
[2019-05-28 23:34] VITALS: BMI 35.0
--- NOTE | 2019-05-28 23:40 | EKG12_ITS ---
Test Reason : Blood Pressure : / mmHG Vent. Rate : 100 BPM Atrial Rate : 100 BPM P-R Int : 168 ms QRS Dur : 134 ms QT Int : 378 ms P-R-T Axes : 073 -17 000 degrees QTc Int : 487 ms Normal sinus rhythm Non-specific intra-ventricular conduction block Cannot rule out Anterior infarct , age undetermined Abnormal ECG When compared with ECG of 29-MAY-2019 00:20, MANUAL COMPARISON REQUIRED, DATA IS UNCONFIRMED Confirmed by EILEEN IRIZARRY ([id number]), news video editor ORDRICK WELCH ([id number]) on 06/02/2019 10:31:09 AM Referred By: Tank Cummings Confirmed By:EILEEN IRIZARRY
--- NOTE | 2019-05-28 23:41 | NURSING ---
Pt states last time she saw Dr. Patricia, she was instructed not to let another doctor give her a stress test.
[2019-05-28 23:44] VITALS: BP 135/66; PULSE 82; RESP 12; TEMP 36.5; O2SAT 92
[2019-05-28 23:52] VITALS: BP 144/72
[2019-05-29] VITALS (16 sets, daily range): BP systolic 137–187; BP diastolic 68–105; PULSE 78–111; RESP 11–20; TEMP 36.6–36.8; O2SAT 94–97
[2019-05-29] MEDS: 0.9% Normal Saline 1,000 ML 100 ML IV ×3 (00:35→21:28)
[2019-05-29] MEDS: 0.9% NaCl Peripheral Flush Adult/Peds IV ×3 (00:39→22:35)
--- NOTE | 2019-05-29 01:19 | NURSING ---
Dr. Cummings said okay to give a dose of Benadryl for insomnia. Upon entry to room, pt was resting with eyes closed. Benadryl not given.
[2019-05-29 02:44] LABS: Absolute Lymphocyte Count 2.29 X10^3/uL (0.83-4.51); Absolute Neutrophil Count 3.2 X10^3/uL (2.0-7.7); Basophil# 0.01 X10^3/uL; Basophil% 0.2 % (0-1); Eosinophil# 0.03 X10^3/uL; Eosinophils% 0.5 % (0-5); Hematocrit 33.9 % (37-47); Hemoglobin 10.5 g/dL (12.0-15.0); Lymphocyte # 2.29 X10^3/ul (4.0); Lymphocyte % 38.4 % (19-41); Mean Corpuscular Hgb 29.7 pg (27.0-32.0); Mean Corpuscular Volume 95.8 fL (81-99); Mean Platelet Vol. 11.7 fl (6.2-12.0); Monocyte# 0.45 X10^3/uL; Monocyte% 7.5 % (0-10); NRBC Flagged by Analyzer 0 % (0-5); Neutrophil # 3.15 X10^3/uL (2.7-7.7); Neutrophil % 52.7 % (47-70); Platelet Count 149 K/mm3 (150-450); RBC Distribution Width SD 56.3 fl (35.1-43.9); Red Blood Count 3.54 M/mm3 (4.2-5.4)
[2019-05-29 02:51] LABS: International Normalized Ratio 1.9; Prothrombin Time (Protime)PT. 21.6 SECONDS (11.7-14.9)
[2019-05-29 03:08] LABS: Anion Gap 6 (5-15); BUN 13 mg/dL (7-18); BUN/Creat Ratio 13.1 RATIO (10-20); Calcium,Total 9.1 mg/dL (8.5-10.1); Chloride 108 mmol/L (98-107); Cholesterol 157 mg/dL (200); Creatinine, Serum 0.99 mg/dL (0.55-1.02); EST Glomerular Filtration Rate 57 mL/min (>60); Est Glom Filt Rate - Afr Amer 69 mL/min (>60); Estimated Creatinine Clearance 42.43 ml/min; Glucose 110 mg/dL (74-106); High Density Lipoprotein 52 mg/dL; Potassium 4.1 mmol/L (3.5-5.1); Sodium Level 142 mmol/L (136-145); Thyroid Stim Hormone (TSH) 3.54 uIU/mL (0.358-3.74); Triglycerides 90 mg/dL; Very Low Density Lipoprotein 18 mg/dL (5-40)
[2019-05-29 03:09] LABS: Hemoglobin A1c 6.2 % (4.2-6.3)
[2019-05-29] MEDS: proCHLORPERazine 10 MG/2 ML Vial 5 MG IV (04:44)
--- NOTE | 2019-05-29 05:55 | US_ITS ---
STUDY: RENAL ULTRASOUND - COMPLETE REASON FOR EXAM: Female, 78 years old. Recurrent UTIs. TECHNIQUE: Ultrasound evaluation of the kidneys was performed with real-time and static nichole-scale imaging. COMPARISON: None. FINDINGS: RIGHT KIDNEY: Normal location of the right kidney, which is normal in size. The right kidney measures 10.3 cm x 5.4 cm x 4.0 cm. There is a normal cortex of the right kidney. The renal cortex measures 1.2 cm. There is no right renal mass or cyst. There are no right renal calculi. There is no right hydronephrosis. DISTAL RIGHT URETER: There is non-visualization of the distal right ureter. There is no demonstrated right ureterovesical junction calculus. There is a visualized right ureteral jet. LEFT KIDNEY: Normal location of the left kidney, which is normal in size. The left kidney measures 10.0 cm x 4.4 cm x 3.9 cm. There is a normal cortex of the left kidney. The renal cortex measures 1.2 cm. There is no left renal mass or cyst. There are no left renal calculi. There is no left hydronephrosis. DISTAL LEFT URETER: There is non-visualization of the distal left ureter. There is no demonstrated left ureterovesical junction calculus. There is a visualized left ureteral jet. BLADDER: The distended urinary bladder has a volume of 77 ml. There is a normal wall thickness of the distended urinary bladder. There is no demonstrated mass within the urinary bladder. There are no demonstrated bladder calculi. US/Kidney and Bladder IMPRESSION: Normal ultrasound of the kidneys and urinary bladder. Electronically Signed: Omid Bansal, at 15:17 EDT , Service support ,
[2019-05-29 07:16] LABS: Bedside Glucose 112 mg/dL (70-110)
[2019-05-29] MEDS: Losartan Potassium 50 MG Tablet PO (09:20)
[2019-05-29] MEDS: Aspirin E.C. 81 MG Tablet PO (09:20)
[2019-05-29] MEDS: oxyCODONE 5 MG Tablet 10 MG PO ×2 (09:20→21:33)
[2019-05-29] MEDS: Acetaminophen 325 MG Tablet 650 MG PO (10:30)
[2019-05-29] MEDS: Ceftriaxone 1 GM/50 ML BAG IV (10:43)
--- NOTE | 2019-05-29 11:30 | EKG12_ITS ---
Test Reason : CP ADMIT Blood Pressure : / mmHG Vent. Rate : 077 BPM Atrial Rate : 077 BPM P-R Int : 200 ms QRS Dur : 136 ms QT Int : 424 ms P-R-T Axes : 055 -17 -15 degrees QTc Int : 479 ms Normal sinus rhythm Left bundle branch block Cannot rule out Anterior infarct (cited on or before 13-MAY-2019) Abnormal ECG When compared with ECG of 13-MAY-2019 20:17, Premature supraventricular complexes are no longer Present Confirmed by EILEEN IRIZARRY ([id number]), content editor DIANA STEWART ([id number]) on 05/31/2019 10:47:08 AM Referred By: Tank Cummings Confirmed By:EILEEN IRIZARRY
[2019-05-29] MEDS: Ondansetron 4 MG/2 ML Vial IV ×2 (12:00→22:34)
[2019-05-29 12:10] LABS: Bedside Glucose 124 mg/dL (70-110)
[2019-05-29] MEDS: Cyanocobalamin 500 MCG Tablet PO (12:52)
[2019-05-29] MEDS: Pantoprazole Sodium 20 MG Tablet PO ×2 (12:53→21:17)
[2019-05-29] MEDS: Furosemide 40 MG Tablet PO (12:53)
[2019-05-29] MEDS: Metoprolol(XL)Succ 100 MG Tablet PO (12:53)
[2019-05-29] MEDS: Gabapentin 600 MG Tablet PO ×4 (12:53→21:17)
--- NOTE | 2019-05-29 14:28 | PCM.PN.HOSP ---
Patient Problems: Active and Suspected Problems (Last Updated 05/02/19 @ 15:56 by VERNA Best) Atypical chest pain (Acute) Acute on recurrent UTI (Acute) Subjective: States that her chest pain is better, however she did have some significant nausea this morning. Denies any fevers or chills. No issues overnight. Vitals/I&O's: Vital Signs Temp Pulse Resp BP Pulse Ox 97.8 F 103 H 18 158/78 H 95 05/29/19 09:02 05/29/19 12:53 05/29/19 11:25 05/29/19 13:00 05/29/19 11:25 Oxygen Delivery Method Room Air Weight: 217 lb 2.485 oz Body Mass Index (BMI) 34.9 Intake and Output for Last 24 Hours 05/27/19 05/28/19 05/29/19 23:59 23:59 23:59 Intake Total 432.5 / 432.5 1170.00 / 1170.00 Output Total Balance 432.5 / 432.5 1150.00 / 1150.00 General: Alert, Oriented x3, Cooperative, No apparent distress HEENT: Atraumatic, PERRLA, EOMI, Normocephalic Oral: Moist Mucosa Neck: Supple, No JVD Lungs: Clear to auscultation, Normal air movement, No rhonchi, No wheeze, No rales, Diminished Cardiovascular: Regular rate, Regular Rhythm, Normal S1, Normal S2, No murmurs Abdomen: Soft, Non Tender, Non-Distended, No Hepato-splenomegaly Extremities: No edema, Capillary Refill Less than 3 Seconds Skin: No rashes, No breakdown Neurological: Neuro grossly intact, Sensory exam intact to light touch and pain Psych/Mental Status: Normal Affect, Appropriate Microbiology Past 72 Hours 05/28/19 20:44 Urine, Random Urine Culture - Preliminary Presumptive E. coli Laboratory Results 05/28/19 20:24: WBC 5.2, RBC 3.76 L, Hgb 11.1 L, Hct 35.2 L, MCV 93.6, MCH 29.5, MCHC 31.5 L, RDW Std Deviation 54.2 H, RDW Coeff of Maty 15.9 H, Plt Count 147 L, MPV 11.7, Immature Gran % (Auto) 0.800, Neut % (Auto) 51.4, Lymph % (Auto) 39.2, [place] % (Auto) 7.6, Eos % (Auto) 0.8, Baso % (Auto) 0.2, Absolute Neuts (auto) 2.7, Absolute Lymphs (auto) 2.02, Nucleated RBC % 0 05/28/19 20:24: PT 21.5 H, INR 1.9 05/28/19 20:24: Sodium 140, Potassium 3.8, Chloride 105, Carbon Dioxide 28.0, Anion Gap 7, BUN 14, Creatinine 1.09 H, Estim Creat Clear Calc 38.54, Est GFR (MDRD) Af Amer 62, Est GFR (MDRD) Non-Af 51 L, BUN/Creatinine Ratio 12.8, Glucose 126 H, Calcium 9.1, Troponin I < 0.015 05/28/19 20:44: Urine Color Yellow, Urine Clarity Sl Cloudy, Urine pH 6.5, Ur Specific [place] 1.010, Urine Protein 30 H, Urine Glucose (UA) Normal, Urine Ketones 5 H, Urine Occult Blood 25 H, Urine Nitrite Positive H, Urine Bilirubin Negative, Urine Urobilinogen Normal, Ur Leukocyte Esterase 100 H, Urine RBC 0-5 SEEN, Urine WBC 25-50 SEEN, Ur Squamous Epith Cells 0-5 SEEN, Urine Bacteria 3+, Urine Mucus 0 SEEN 05/28/19 23:53: Troponin I < 0.015 05/29/19 02:30: WBC 6.0, RBC 3.54 L, Hgb 10.5 L, Hct 33.9 L, MCV 95.8, MCH 29.7, MCHC 31.0 L, RDW Std Deviation 56.3 H, RDW Coeff of Maty 16.0 H, Plt Count 149 L, MPV 11.7, Immature Gran % (Auto) 0.700, Neut % (Auto) 52.7, Lymph % (Auto) 38.4, [place] % (Auto) 7.5, Eos % (Auto) 0.5, Baso % (Auto) 0.2, Absolute Neuts (auto) 3.2, Absolute Lymphs (auto) 2.29, Nucleated RBC % 0 05/29/19 02:30: PT 21.6 H, INR 1.9 05/29/19 02:30: Hemoglobin A1c 6.2 05/29/19 02:30: Sodium 142, Potassium 4.1, Chloride 108 H, Carbon Dioxide 28.0, Anion Gap 6, BUN 13, Creatinine 0.99, Estim Creat Clear Calc 42.43, Est GFR (MDRD) Af Amer 69, Est GFR (MDRD) Non-Af 57 L, BUN/Creatinine Ratio 13.1, Glucose 110 H, Calcium 9.1, Troponin I < 0.015, Triglycerides 90, Cholesterol 157, LDL Cholesterol 87, VLDL Cholesterol 18, HDL Cholesterol 52, TSH 3.54 05/29/19 07:07: POC Glucose 112 H 05/29/19 11:54: POC Glucose 124 H Current Medications Acetaminophen (Tylenol) 650 mg PO Q6H PRN PRN PRN Reason: Pain Score 1-3/Temp > 100.7 F Last Admin: 05/29/19 10:30 Dose: 650 mg Documented by: Albuterol Sulfate (Ventolin Aerosols) 2.5 mg INHALATION Q2H PRN PRN PRN Reason: SOB/Wheezing Aspirin (Ecotrin) 81 mg PO DAILY@0800 [facility] Last Admin: 05/29/19 09:20 Dose: 81 mg Documented by: Atorvastatin Calcium (Lipitor) 80 mg PO QHS [facility] Cyanocobalamin (Vitamin B12) 500 mcg PO DAILY@0800 [facility] Last Admin: 05/29/19 12:52 Dose: 500 mcg Documented by: Dextrose (D50w Syringe) 0 gm IV X1 PRN; Protocol PRN Reason: Hypoglycemia Diphenhydramine HCl (Benadryl) 25 mg PO QHS PRN PRN PRN Reason: INSOMNIA Furosemide (Lasix) 40 mg PO DAILY [facility] Last Admin: 05/29/19 12:53 Dose: 40 mg Documented by: Gabapentin (Neurontin) 600 mg PO 4X/DAY [facility] Last Admin: 05/29/19 12:53 Dose: 600 mg Documented by: Glucagon () 1 mg IM .X1 PRN PRN Reason: Hypoglycemia Hydromorphone HCl (Dilaudid Inj) 0.5 mg IV Q4H PRN PRN PRN Reason: Pain Score 6-10/10 Sodium Chloride () 250 mls @ 15 mls/hr IV .[id number] PRN PRN Reason: SALINE FLUSH Sodium Chloride () 1,000 mls @ 100 mls/hr IV .Q10H [facility] Last Admin: 05/29/19 13:02 Dose: 100 mls/hr Documented by: Ceftriaxone Sodium (Rocephin) 1 gm in 50 mls @ 100 mls/hr IV Q24 [facility] Last Infusion: 05/29/19 11:20 Dose: Infused Documented by: Insulin Human Lispro (Humalog Kwikpen (Bkc)) 0 unit SC ACHS [facility]; Protocol Last Admin: 05/29/19 11:55 Dose: Not Given Documented by: Isosorbide Mononitrate (Imdur) 120 mg PO DAILY [facility] Last Admin: 05/29/19 12:52 Dose: 120 mg Documented by: Losartan Potassium (Cozaar) 50 mg PO DAILY [facility] Last Admin: 05/29/19 09:20 Dose: 50 mg Documented by: Melatonin (Melatonin) 3 mg PO QHS PRN PRN PRN Reason: INSOMNIA Methocarbamol (Robaxin) 500 mg PO TID PRN PRN PRN Reason: SPASMS Metoprolol Succinate (Toprol Xl (Beta Jesscia)) 100 mg PO DAILY [facility] Last Admin: 05/29/19 12:53 Dose: 100 mg Documented by: Nitroglycerin (Nitrostat) 0.4 mg SUBLINGUAL Q5M PRN PRN Reason: CARDIAC/CHEST PAIN Ondansetron HCl (Zofran) 4 mg IV Q6H PRN PRN PRN Reason: NAUSEA/VOMITING Last Admin: 05/29/19 12:00 Dose: 4 mg Documented by: Oxycodone HCl (Oxyir) 10 mg PO Q4H PRN PRN PRN Reason: Pain Score 4-5/10 Last Admin: 05/29/19 09:20 Dose: 10 mg Documented by: Pantoprazole Sodium (Protonix) 20 mg PO BID [facility] Last Admin: 05/29/19 12:53 Dose: 20 mg Documented by: Prochlorperazine Edisylate (Compazine Iv) 5 mg IV Q4H PRN PRN PRN Reason: Breakthrough Nausea/Vomiting Last Admin: 05/29/19 04:44 Dose: 5 mg Documented by: Senna/Docusate Sodium (Senokot-S, Alejandra-Colace) 2 tablet PO BID PRN PRN PRN Reason: Constipation Sodium Chloride () 5 - 15 ml IV UD PRN PRN Reason: SALINE FLUSH Last Admin: 05/29/19 09:21 Dose: 10 ml Documented by: Warfarin Sodium (Coumadin (Pbkc)) 4 mg PO DAILY@1700 ILYA; Protocol STROKE Vital Signs/Narrative: Vital Signs Pulse Resp BP BP Pulse Ox 05/29/19 13:00 158/78 H 05/29/19 12:53 103 H 158/78 H 05/29/19 12:10 103 H 05/29/19 11:25 111 H 18 187/105 H 95 Medical Necessity - Tobacco Use Smoking Status: Never smoker Assessment/Plan All Active Problems (Last Updated 05/02/19 @ 15:56 by VERNA Best) Atypical chest pain (Acute) Acute on recurrent UTI (Acute) Back pain (Acute) NSTEMI (non-ST elevated myocardial infarction) (Resolved) 1. Atypical left-sided chest pain/paroxysmal A. fib/chronic systolic heart failure/CAD status post CABG and stents/HTN -Initial troponins were negative, and EKG is unremarkable and at baseline. She does have significant coronary artery disease in the past was told to never have a stress test. -Consult cardiology for evaluation -On admission his pain was reproducible on palpation and therefore likely musculoskeletal. -Tinea with Lasix and Coumadin, INR is 1.9 we will monitor -Tinea with aspirin, Lipitor, losartan, isosorbide mononitrate, metoprolol 2. Acute recurrent UTI -Appears to be E. coli, awaiting sensitivities -Continue with Rocephin 3. Chronic back pain -Secondary to arthritis -Seen with PT/OT -Flexeril for back spasms -Cons with Dr. Encarnacion as an outpatient for pain management 4. DM 2 -Appears to be diet controlled -We will monitor with Accu-Cheks and continue with sliding scale insulin 5. GERD -Stable -Continue with PPI DVT: Coumadin Code Visit OBSV E&M: [id number] Subsequent observation care L2
--- NOTE | 2019-05-29 16:10 | CHAPLAIN ---
Type of Pastoral Visit _x__ Initial Visit ___ Follow-up Visit ___ On-call Visit ___ General Patient Visit ___ Spiritual Assessment ___ Family Conference ___ Bereavement ___ Rapid Response ___ Code Blue ___ Other (describe below) Pastoral Care Referral From _x__ Patient ___ Family ___ Nurse ___ Physician ___ Departmental Buyer ___ Stone Driller Helper ___ Other (describe below) Sacrament/Intervention _x__ Active listening ___ Anointing ___ Faith ___ Bereavement ___ Communion ___ Kimberly exploration ___ _x__ Life review _x__ Prayer ___ Reconciliation ___ Sacrament of Sick _x__ Supportive presence ___ Wedding ___ Other (describe below) Pastoral Comments
[2019-05-29 17:41] LABS: Bedside Glucose 157 mg/dL (70-110)
--- NOTE | 2019-05-29 18:01 | PCM.CONS.C ---
Reason for Consult Date of Consultation: 05/29/19 Reason for Consultation: Chest pain History of Present Illness: The patient is a 78 year old F with multiple comorbidities including CAD s/p CABG; HTN; DM 2; Ischemic Cardiomyopathy with last admission in February 2019 for similar chest pain and back pain came to ED with back pain. She described her back pain mainly over L1-L2, localized without radiation to lower extremities. Patient does not have numbness or tingling or sciatica pain. She has chronic left-sided chest pain states after left breast reduction surgery most probably from scar tissue. Last cath in 2016 revealed patent SVG Y graft to LAD and diagonal. Other grafts and [place] vessels were occluded proximally. Patient had [id number] collaterals visualized via injection of the SVG to the LAD/diagonal. Cardiology consult was requested to see if she needs further work-up for her chest pain. Chest pain is chronic and has not changed recently. Review of systems: All systems reviewed. All else is negative except that in the HPI. [] Past Medical History Allergies/Adverse Reactions: Allergies Sulfa (Sulfonamide Antibiotics) Allergy (Verified 05/28/19 19:22) Rash doxycycline Adverse Reaction (Mild, Verified 05/28/19 19:22) Swelling cephalexin monohydrate [From Keflex] Adverse Reaction (Verified 05/28/19 19:22) Upset Stomach dicyclomine Adverse Reaction (Verified 05/28/19 19:22) Other NSAIDS (Non-Steroidal Anti-Inflamma Adverse Reaction (Verified 05/28/19 19:22) Other Penicillins Adverse Reaction (Verified 05/28/19 19:22) Unknown tetracycline [Tetracycline] Adverse Reaction (Verified 05/28/19 19:22) Swelling Home Medications: Ambulatory Orders Medication Instructions Recorded Aspirin E.C. [Ecotrin] 81 mg PO DAILY@0800 03/08/17 Calcium Carbonate/Vitamin D3 1 ea PO BID 03/08/17 [Calcium 500-Vit D3 600 Caplet] Gabapentin [Neurontin] 600 mg PO 4X/DAY 03/08/17 Omeprazole [Prilosec] 20 mg PO BID 03/08/17 Cyanocobalamin [Vitamin B12] 500 mcg PO DAILY@0800 12/07/17 furosemide 40 mg tablet 40 mg PO DAILY #90 tab 07/18/18 rosuvastatin 40 mg tablet 40 mg PO DAILY #90 tab 09/28/18 warfarin 3 mg tablet 4 mg PO DAILY tab 12/13/18 nitroglycerin 0.4 mg sublingual 0.4 mg SUBLINGUAL Q5-15M PRN #25 12/30/18 tablet tab Methocarbamol 500 mg PO TID PRN 02/27/19 Ubidecarenone [Coq-10] 100 mg PO DAILY 04/22/19 DiphenhydrAMINE [Benadryl] mg PO QHS 05/28/19 Isosorbide Mononitrate [Imdur] 120 mg PO DAILY 05/28/19 Losartan Potassium 50 mg PO QDAY 05/28/19 Metoprolol(XL)Succ [Toprol Xl 100 mg PO DAILY 05/28/19 (Beta Jessica)] Past Medical History (Chronic Problems): Chronic Problems (Last Updated 05/02/19 @ 15:56 by VERNA Best) Primary osteoarthritis of left knee (Chronic) Back spasm (Chronic) Compression fracture of T12 vertebra (Chronic) Pure hypercholesterolemia (Chronic) LBBB (left bundle branch block) (Chronic) Aortocoronary bypass status (Chronic ~10/09/02) CABG x6- Sequential SVG in Sequence to the LAD, Descending Diagonal, CX/CX, and RCA/RCA 10/09/02 Atherosclerotic heart disease of [place] coronary artery without angina pectoris (Chronic) Atherosclerosis of coronary artery bypass graft(s), unspecified, with other forms of angina pectoris (Chronic) CABG x6- Sequential SVG in Sequence to the LAD, Descending Diagonal, CX/CX, and RCA/RCA 10/09/02 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 (Chronic) jail current use of anticoagulant (Chronic) Benign hypertension (Chronic) Obesity (Chronic) Diabetes mellitus, type 2 (Chronic) Systolic CHF, chronic (Chronic) Thromboembolic disorder (Chronic) Ischemic cardiomyopathy (Chronic) Surgical History: appendectomy, cholecystectomy, coronary bypass surgery - 2002, hysterectomy, - - Breast reduction, right knee partial replacement, left knee repair, perforated bowel repair. Psychiatric History: No pertinent psych hx [employer] History: No pertinent [employer] history - *Family History Maternal Family History: Family History (Last Reviewed 05/02/19 @ 15:56 by VERNA Best) Mother Myocardial infarction Hypertension Heart disease History of coronary artery bypass graft Brother Hypertension History of coronary artery bypass graft Father Cancer History Items: Heart Disease, Hypertension Paternal Family History: Family History (Last Reviewed 05/02/19 @ 15:56 by VERNA Best) Mother Myocardial infarction Hypertension Heart disease History of coronary artery bypass graft Brother Hypertension History of coronary artery bypass graft Father Cancer History Items: Cancer Smoking Status: Never smoker Objective: Vital Signs Temp Pulse Resp BP Pulse Ox 97.8 F 90 15 146/80 H 94 05/29/19 14:37 05/29/19 15:58 05/29/19 14:37 05/29/19 14:37 05/29/19 14:37 Oxygen Delivery Method Room Air Weight: 217 lb 2.485 oz Body Mass Index (BMI) 34.9 Intake and Output for Last 24 Hours 05/27/19 05/28/19 05/29/19 23:59 23:59 23:59 Intake Total 432.5 / 432.5 1530.00 / 1530.00 Output Total 170 / 170 Balance 432.5 / 432.5 1360.00 / 1360.00 General: Awake, Alert, Oriented x 3 HEENT: PERRL, EOMI, Sclera Non Icteric Neck: Supple, Good ROM, No Lymph Node Enlargement Lungs: Clear to auscultation Cardiovascular: Regular Rhythm, Normal S1, Normal S2, No Murmurs, No Rubs, No Gallops Abdomen: Soft Extremities: No edema Skin: No Rashes Psych/Mental Status: Appropriate 05/28/19 20:24: WBC 5.2, RBC 3.76 L, Hgb 11.1 L, Hct 35.2 L, MCV 93.6, MCH 29.5, MCHC 31.5 L, Plt Count 147 L, MPV 11.7, Immature Gran % (Auto) 0.800, Neut % (Auto) 51.4, Lymph % (Auto) 39.2, [place] % (Auto) 7.6, Eos % (Auto) 0.8, Baso % (Auto) 0.2, Absolute Neuts (auto) 2.7, Nucleated RBC % 0 05/28/19 20:24: PT 21.5 H, INR 1.9 05/28/19 20:24: Sodium 140, Potassium 3.8, Chloride 105, Carbon Dioxide 28.0, Anion Gap 7, BUN 14, Creatinine 1.09 H, Est GFR (MDRD) Af Amer 62, Est GFR (MDRD) Non-Af 51 L, BUN/Creatinine Ratio 12.8, Glucose 126 H, Calcium 9.1, Troponin I < 0.015 05/28/19 20:44: Urine Color Yellow, Urine Clarity Sl Cloudy, Urine pH 6.5, Ur Specific [place] 1.010, Urine Protein 30 H, Urine Glucose (UA) Normal, Urine Ketones 5 H, Urine Occult Blood 25 H, Urine Nitrite Positive H, Urine Bilirubin Negative, Urine Urobilinogen Normal, Ur Leukocyte Esterase 100 H, Urine RBC 0-5 SEEN, Urine WBC 25-50 SEEN 05/28/19 23:53: Troponin I < 0.015 05/29/19 02:30: WBC 6.0, RBC 3.54 L, Hgb 10.5 L, Hct 33.9 L, MCV 95.8, MCH 29.7, MCHC 31.0 L, Plt Count 149 L, MPV 11.7, Immature Gran % (Auto) 0.700, Neut % (Auto) 52.7, Lymph % (Auto) 38.4, [place] % (Auto) 7.5, Eos % (Auto) 0.5, Baso % (Auto) 0.2, Absolute Neuts (auto) 3.2, Nucleated RBC % 0 05/29/19 02:30: PT 21.6 H, INR 1.9 05/29/19 02:30: Hemoglobin A1c 6.2 05/29/19 02:30: Sodium 142, Potassium 4.1, Chloride 108 H, Carbon Dioxide 28.0, Anion Gap 6, BUN 13, Creatinine 0.99, Est GFR (MDRD) Af Amer 69, Est GFR (MDRD) Non-Af 57 L, BUN/Creatinine Ratio 13.1, Glucose 110 H, Calcium 9.1, Troponin I < 0.015, Triglycerides 90, Cholesterol 157, LDL Cholesterol 87, VLDL Cholesterol 18, HDL Cholesterol 52 Rhythm: EKG: ECHO: Stress Test: Cardiac Cath: PCI: CT Surgery: Holter monitor: EPS: PPM: CXR: Chest CT Scan: Assessment/Plan 1. Chest pain: Appears noncardiac. No further work-up required at this time for this. 2. CAD: Appears stable continue current medications.
[2019-05-29] MEDS: Atorvastatin Calcium 80 MG Tablet PO (21:18)
[2019-05-29 21:36] LABS: Bedside Glucose 94 mg/dL (70-110)
[2019-05-30 02:35] VITALS: BP 129/69; PULSE 81; RESP 20; TEMP 36.6; O2SAT 94
[2019-05-30 03:00] VITALS: PULSE 78
[2019-05-30 06:20] LABS: International Normalized Ratio 2.1; Prothrombin Time (Protime)PT. 23.4 SECONDS (11.7-14.9)
[2019-05-30 07:05] VITALS: BP 122/60; PULSE 78; PULSE 80; RESP 16; TEMP 36.7; O2SAT 95
[2019-05-30] MEDS: 0.9% Normal Saline 1,000 ML 100 ML IV (07:07)
[2019-05-30 07:15] LABS: Bedside Glucose 94 mg/dL (70-110)
[2019-05-30 07:40] VITALS: O2SAT 93
--- NOTE | 2019-05-30 09:11 | DCINST_ITS ---
- Discharge Diagnoses Current Active Problems: Current Active and Chronic Problems (Last Updated 05/02/19 @ 15:56 by VERNA Best) Atypical chest pain (Acute) Acute on recurrent UTI (Acute) You will use the following diet at home:: Cardiac Your food should be the consistency of: Regular Your liquids should be the consistency of: Regular/Thin Discharge Activity: Return to Normal Activity Call your doctor if you observe: Fever of 101 or Higher, Shortness of breath, Dizziness, Fainting spells, Swelling in the ankles, Chest pain, Increased palpitations (irregular heartbeat) Additional Instructions: Have your INR checked in 2-3 days since you are on an antibiotic that can affect coumadin dosing. Allergies/Adverse Reactions: Allergies Sulfa (Sulfonamide Antibiotics) Allergy (Verified 05/28/19 19:22) Rash doxycycline Adverse Reaction (Mild, Verified 05/28/19 19:22) Swelling cephalexin monohydrate [From Keflex] Adverse Reaction (Verified 05/28/19 19:22) Upset Stomach dicyclomine Adverse Reaction (Verified 05/28/19 19:22) Other NSAIDS (Non-Steroidal Anti-Inflamma Adverse Reaction (Verified 05/28/19 19:22) Other Penicillins Adverse Reaction (Verified 05/28/19 19:22) Unknown tetracycline [Tetracycline] Adverse Reaction (Verified 05/28/19 19:22) Swelling Medications to take at Discharge Aspirin E.C. [Ecotrin] 81 mg PO DAILY@0800 03/08/17 Calcium Carbonate/Vitamin D3 [Calcium 500-Vit D3 600 Caplet] 1 ea PO BID 03/08/17 Gabapentin [Neurontin] 600 mg PO 4X/DAY 03/08/17 Omeprazole [Prilosec] 20 mg PO BID 03/08/17 Cyanocobalamin [Vitamin B12] 500 mcg PO DAILY@0800 12/07/17 furosemide 40 mg tablet 40 mg PO DAILY #90 tab 07/18/18 rosuvastatin 40 mg tablet 40 mg PO DAILY #90 tab 09/28/18 warfarin 3 mg tablet 4 mg PO DAILY tab 12/13/18 nitroglycerin 0.4 mg sublingual tablet 0.4 mg SUBLINGUAL Q5-15M PRN #25 tab 12/30/18 Methocarbamol 500 mg PO TID PRN 02/27/19 Ubidecarenone [Coq-10] 100 mg PO DAILY 04/22/19 DiphenhydrAMINE [Benadryl] mg PO QHS 05/28/19 Isosorbide Mononitrate [Imdur] 120 mg PO DAILY 05/28/19 Losartan Potassium 50 mg PO QDAY 05/28/19 Metoprolol(XL)Succ [Toprol Xl (Beta Jessica)] 100 mg PO DAILY 05/28/19 Cephalexin [Keflex] 500 mg PO Q8 #12 cap 05/30/19 The following prescriptions were given: Cephalexin [Keflex] 500 mg PO Q8 #12 cap Transmission Status: Pending to [facility] Primary Care Physician: Osiel Arzola MD [Primary Care Provider] - Please follow up with your Primary Care Physician in: 3-5 days Test Results: Test results from this visit will be discussed in further detail at your follow- up appointment, if applicable. Please Follow Up With: Osiel Arzola MD
[2019-05-30 09:27] VITALS: BP 123/61; PULSE 94; RESP 16; TEMP 36.1; O2SAT 97
[2019-05-30 09:38] VITALS: PULSE 94
[2019-05-30] MEDS: Metoprolol(XL)Succ 100 MG Tablet PO (09:38)
[2019-05-30] MEDS: Pantoprazole Sodium 20 MG Tablet PO (09:38)
[2019-05-30] MEDS: Furosemide 40 MG Tablet PO (09:38)
[2019-05-30] MEDS: Cyanocobalamin 500 MCG Tablet PO (09:38)
[2019-05-30] MEDS: Losartan Potassium 50 MG Tablet PO (09:38)
[2019-05-30] MEDS: Aspirin E.C. 81 MG Tablet PO (09:38)
--- NOTE | 2019-05-30 09:38 | CASEMGMT ---
KIRIT QUAN assessment: Face to Face with patient for initial transition planning/care coordination assessment. KIRIT QUAN introduced self and role at [facility], pt voices understanding and consents to assessment at this time. Pt is sitting up in chair in no distress at this time. Pt is A/Ox4 at this time and answers all questions appropriately at this time. Care providers, pharmacy, and demographics verified at this time. PCP: Dariusz Specialists: Harshad, cardio; DOREEN Lazo Pref[facility]: [facility] Insurance: [facility] A/B Prescription Benefit: Yes but pt cannot remember name Living Will/HPOA: Pt states does believe that she has LW/HPOA but would like information at this time for future reference and states that she believes that her and her have met with strategic procurement manager and she is unsure where that process is at. Pt provided with AD info and [employer] card at this time. LNOK: Lila Richards, ; Michelle Diehl, daughter Living Arrangements: Pt states lives with and daughter in 1 story home and states no concerns at home at this time. Pt states is independent with ADL's. Transportation: Pt states drives and states no transportation concerns at this time. DME/HHC: Pt states has a w/c, walker, and shower chair and states no need for any further DME at this time. Pt states no hx of HHC but has been to [facility] s/p knee replacement. Pt states no concerns with going home at time of discharge. Pt states is retired. Pt states does not smoke or drink ETOH. Pt states no further concerns/needs at this time. CM to follow for any further discharge planning/needs. Advised pt to ask for CM if any further questions/concerns/needs arise, voices understanding. Pt Goal: Home Plan[place] KIRIT QUAN
[2019-05-30] MEDS: Gabapentin 600 MG Tablet PO (09:39)
[2019-05-30] MEDS: Ceftriaxone 1 GM/50 ML BAG IV (09:48)
--- NOTE | 2019-05-30 17:01 | PCM.DC.SUM ---
Discharge Date and Diagnosis Date of Admission: 05/28/19 Date of Discharge: 05/30/19 - Secondary Discharge Diagnosis Chronic Problems (Last Updated 05/02/19 @ 15:56 by VERNA Best) Primary osteoarthritis of left knee (Chronic) Back spasm (Chronic) Compression fracture of T12 vertebra (Chronic) Pure hypercholesterolemia (Chronic) LBBB (left bundle branch block) (Chronic) Aortocoronary bypass status (Chronic ~10/09/02) CABG x6- Sequential SVG in Sequence to the LAD, Descending Diagonal, CX/CX, and RCA/RCA 10/09/02 Atherosclerotic heart disease of [place] coronary artery without angina pectoris (Chronic) Atherosclerosis of coronary artery bypass graft(s), unspecified, with other forms of angina pectoris (Chronic) CABG x6- Sequential SVG in Sequence to the LAD, Descending Diagonal, CX/CX, and RCA/RCA 10/09/02 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 (Chronic) detention current use of anticoagulant (Chronic) Benign hypertension (Chronic) Obesity (Chronic) Diabetes mellitus, type 2 (Chronic) Systolic CHF, chronic (Chronic) Thromboembolic disorder (Chronic) Ischemic cardiomyopathy (Chronic) Hospital Course and Treatment Imaging Results: CXR: IMPRESSION: Stable examination demonstrating no acute cardiopulmonary process. Renal US: IMPRESSION: Normal ultrasound of the kidneys and urinary bladder. Consults: None Operations: None Procedures: None Summary of Care Provided: Per HPI: The patient is a 78 year old F with multiple comorbidities including CAD s/p CABG X 6; HTN; DM 2; Ischemic Cardiomyopathy with last admission in February 2019 for similar chest pain and back pain came to ED with back pain and also left her chest pain. She described her back pain mainly over L1-L2, localized without radiation to lower extremities. Patient does not have numbness or tingling or sciatica pain. She has chronic left-sided chest pain states after left breast reduction surgery most probably from scar tissue. During previous admission, since her chest pain was resolved and she did not want a stress test as she was told by cardiology that she is not a candidate for any further stress test. In ED, temperature 97.4 vitals were stable. Labs were by and large at baseline. H&H 11.1/35.2. Creatinine 1.09. UA is positive of LE 100, nitrite positive WBC 25-50 cells with bacteria. She denies dysuria and states he never had dysuria event she gets UTI but has increased frequency and urgency. Hospital Course: 1. Acute recurrent QHM-21-htme-old female presenting with her chronic conditions which include back pain and left-sided chest pain, also stated that she had an increase in urinary frequency and urgency but no dysuria. Was found at that time that she was having a UTI she was started on antibiotics. Her urine culture is resulted with a pansensitive E. coli and she was discharged on Keflex for 4 more days. It was expressed to her that she needs to follow-up with her primary care doctor as an outpatient for further evaluation on discharge especially since she is on Coumadin and will need to have a repeat INR in 2 to 3 days to evaluate its level. She expressed understanding with the plan and was in agreement. 2. Atypical left-sided chest pain/paroxysmal A. fib/chronic systolic heart failure/CAD status post CABG and stents/HTN-she has chronic chest pain to some extent and was told that she should never have a stress test. Troponins were negative as was an EKG, and she had cardiology evaluate her who did not feel that her chest pain was cardiac in origin. She was continued on all of her medications and her INR on the day of discharge was 2.1, she will need to have a repeat INR 2 to 3 days. 3. Chronic back pain-she sees Dr. Encarnacion as an outpatient for pain management, she also has had multiple vertebral body fractures and her daughter states that she has a history of osteoporosis but is not on any medications for this. I recommend that she start a bisphosphonate as an outpatient to at least prevent any further fractures. I did discuss with them that taking narcotics for chronic back pain at her age is not a great solution given constipation and other side effects that could lead to worsening debility. 4. Her other medical diagnoses were evaluated and her home medications were continued where appropriate Objective: General: Alert, Oriented x3, Cooperative, No apparent distress HEENT: Atraumatic, PERRLA, EOMI, Normocephalic Oral: Moist Mucosa Neck: Supple, No JVD Lungs: Clear to auscultation, Normal air movement, No rhonchi, No wheeze, No rales, Diminished Cardiovascular: Regular rate, Regular Rhythm, Normal S1, Normal S2, No murmurs Abdomen: Soft, Non Tender, Non-Distended, No Hepato-splenomegaly Extremities: No edema, Capillary Refill Less than 3 Seconds Skin: No rashes, No breakdown Neurological: Neuro grossly intact, Sensory exam intact to light touch and pain Psych/Mental Status: Normal Affect, Appropriate - Physical Exam Vital Signs Temp Pulse Resp BP Pulse Ox 97 F L 94 16 123/61 H 97 05/30/19 09:27 05/30/19 09:38 05/30/19 09:27 05/30/19 09:27 05/30/19 09:27 Oxygen Delivery Method Room Air Weight: 222 lb 3.615 oz Body Mass Index (BMI) 34.9 Intake and Output for Last 24 Hours 05/28/19 05/29/19 05/30/19 23:59 23:59 23:59 Intake Total 432.5 / 432.5 2893.34 / 2893.34 1625.00 / 1625.00 Output Total 270 / 270 150 / 150 Balance 432.5 / 432.5 2623.34 / 2623.34 1475.00 / 1475.00 Microbiology Past 72 Hours 05/28/19 20:44 Urine Culture - Final Urine, Random Presumptive E. coli Laboratory Tests Past 24 Hrs 05/30/19 05:15 PT 23.4 H INR 2.1 POC Glucose 05/30/19 05/29/19 05/29/19 07:02 21:15 17:29 POC Glucose 94 94 157 H Discharge Activity: Return to Normal Activity Call your doctor if you observe: Fever of 101 or Higher, Shortness of breath, Dizziness, Fainting spells, Swelling in the ankles, Chest pain, Increased palpitations (irregular heartbeat) Home Medications: Medications to take at Discharge Aspirin E.C. [Ecotrin] 81 mg PO DAILY@0800 03/08/17 Calcium Carbonate/Vitamin D3 [Calcium 500-Vit D3 600 Caplet] 1 ea PO BID 03/08/17 Gabapentin [Neurontin] 600 mg PO 4X/DAY 03/08/17 Omeprazole [Prilosec] 20 mg PO BID 03/08/17 Cyanocobalamin [Vitamin B12] 500 mcg PO DAILY@0800 12/07/17 furosemide 40 mg tablet 40 mg PO DAILY #90 tab 07/18/18 rosuvastatin 40 mg tablet 40 mg PO DAILY #90 tab 09/28/18 warfarin 3 mg tablet 4 mg PO DAILY tab 12/13/18 nitroglycerin 0.4 mg sublingual tablet 0.4 mg SUBLINGUAL Q5-15M PRN #25 tab 12/30/18 Methocarbamol 500 mg PO TID PRN 02/27/19 Ubidecarenone [Coq-10] 100 mg PO DAILY 04/22/19 DiphenhydrAMINE [Benadryl] mg PO QHS 05/28/19 Isosorbide Mononitrate [Imdur] 120 mg PO DAILY 05/28/19 Losartan Potassium 50 mg PO QDAY 05/28/19 Metoprolol(XL)Succ [Toprol Xl (Beta Jessica)] 100 mg PO DAILY 05/28/19 Cephalexin [Keflex] 500 mg PO Q8 #12 cap 05/30/19 Following Prescrptions Were Given to Patient: Cephalexin [Keflex] 500 mg PO Q8 #12 cap Transmission Status: Received by [facility] Primary Care Physician: Osiel Arzola MD [Primary Care Provider] - Please follow up with your Primary Care Physician in: 3-5 days Please Follow Up With: Osiel Arzola MD Disposition: Home Minutes spent on discharge:: 35 Patient Condition:: Stable Medical Necessity - Tobacco Use Smoking Status: Never smoker Meaningful Use Info Meaningful Use Diagnoses (Choose all that apply): None applicable Code Visit Inpatient E&M: 71229 Disch Hosp
--- NOTE | 2019-05-31 14:38 | CASEMGMT ---
KIRIT CM Discharge Follow-Up Phone Call. [place]: 13 [place]: 4 Discharge Date: 05/30/19 Adm Dx: Atypical CP, Back Pain, UTI Call to pt to inquire about how she has been doing since being discharged from the hospital. Pt's daughter, Michelle, answered and stated pt is sleeping at this time but that she would answer questions. She states pt has been doing better. She states they did get the prescription picked up at the pharmacy and she does not have any questions about the discharge instructions, follow-up appt, or medications. Thompson HIGHTOWERN RN CM
== END 2019-05-30 11:47 | disposition home or self-care (01) | DRG 690 ==
LOC: ED 20:27 → PCU 23:40
PROVIDERS: Admitting Provider Internal Medicine; Emergency Provider Emergency Medicine; Family Provider Family Medicine; PCP Family Medicine; Referring Provider Internal Medicine; Visit Provider Family Medicine
DX: N39.0 Urinary tract infection, site not specified (principal); I50.22 Chronic systolic (congestive) heart failure; M48.54XA Collapsed vertebra, not elsewhere classified, thoracic region, initial encounter for fracture; I11.0 Hypertensive heart disease with heart failure; R07.89 Other chest pain; I25.10 Atherosclerotic heart disease of native coronary artery without angina pectoris; I48.0 Paroxysmal atrial fibrillation; B96.20 Unspecified Escherichia coli [E. coli] as the cause of diseases classified elsewhere; G89.29 Other chronic pain; E11.9 Type 2 diabetes mellitus without complications; E78.00 Pure hypercholesterolemia, unspecified; M54.9 Dorsalgia, unspecified; E66.9 Obesity, unspecified; I25.5 Ischemic cardiomyopathy; Z68.34 Body mass index [BMI] 34.0-34.9, adult; Z79.01 Long term (current) use of anticoagulants; Z95.1 Presence of aortocoronary bypass graft; Z79.82 Long term (current) use of aspirin; Z95.5 Presence of coronary angioplasty implant and graft; I44.7 Left bundle-branch block, unspecified
CPT/HCPCS: 36415; 71045; 76770; 80048; 80061; 81001; 82962; 83036; 84443; 84484; 85025; 85610; 87086; 87088; 87186; 93005; 99285; J7030; A4216; J2405

== ENCOUNTER 2019-06-03 10:45 | Emergency (ER) | payer MEDICARE, SELFPAY ==
[2019-06-03 10:47] VITALS: BP 153/73; PULSE 77; RESP 20; TEMP 36.6; O2SAT 96; BMI 32.5
--- NOTE | 2019-06-03 11:28 | ED.DCSUM_ITS ---
History of Present Illness Chief Complaint: Back Informant: Patient, Family Onset: Days, - - 2 Current Severity: Moderate Narrative: 78-year-old female with a history of CABG, kyphoplasty, osteoporosis presents with back pain. Patient states that in March she had a T12 kyphoplasty done by Dr. Encarnacion. She states that 2 days ago she was cleaning a toilet and felt a pop in her back. Pain is in her low back. Admits to pain be most prominent in the left lower back. Does have some radiation of pain to her right thigh. Denies any urinary retention, stool incontinence or saddle anesthesia. Patient receives caudal injections from pain management. Was supposed to have one on May 12 but it was at an ambulatory clinic and wanted it done inpatient. Patient has been taking Tylenol and muscle relaxers for his symptoms. Denies any fevers nausea vomiting. Past Medical History - Allergies and Home Meds Allergies/Adverse Reactions: Allergies Sulfa (Sulfonamide Antibiotics) Allergy (Verified 06/03/19 10:47) Rash doxycycline Adverse Reaction (Mild, Verified 06/03/19 10:47) Swelling dicyclomine Adverse Reaction (Verified 06/03/19 10:47) Other NSAIDS (Non-Steroidal Anti-Inflamma Adverse Reaction (Verified 06/03/19 10:47) Other Penicillins Adverse Reaction (Verified 06/03/19 10:47) Unknown tetracycline [Tetracycline] Adverse Reaction (Verified 06/03/19 10:47) Swelling Primary Care Physician: Osiel Arzola MD [Primary Care Provider] - Surgical History: appendectomy, cholecystectomy, coronary bypass surgery - 2002, hysterectomy, - - Breast reduction, right knee partial replacement, left knee repair, perforated bowel repair. kyphoplasty Smoking Status: Never smoker - Family History Maternal Family History: Family History (Last Reviewed 05/02/19 @ 15:56 by VERNA Best) Mother Myocardial infarction Hypertension Heart disease History of coronary artery bypass graft Brother Hypertension History of coronary artery bypass graft Father Cancer Family History: Reports: Heart Disease, Hypertension Paternal Family History: Family History (Last Reviewed 05/02/19 @ 15:56 by VERNA Best) Mother Myocardial infarction Hypertension Heart disease History of coronary artery bypass graft Brother Hypertension History of coronary artery bypass graft Father Cancer Family History: Reports: Cancer Review of Systems General: Denies: Chills, Fever, Sweats Eyes: Denies: Visual changes - bilaterally, Diplopia ENT: Denies: Rhinorrhea, Sore throat Cardiovascular: Denies: Chest pain, Palpitations Respiratory: Denies: Dyspnea, Cough, Dyspnea on exertion Gastrointestinal: Denies: Abdominal pain, Nausea, Vomiting, Diarrhea, Melena, Hematochezia Genitourinary: Denies: Dysuria, Hematuria, Frequency Musculoskeletal: Reports: Back pain. Denies: Extremity Pain Skin: Denies: Rash, Wounds Neurological: Denies: Headache, Weakness, Numbness Physical Exam Vital Signs/Narrative: Vital Signs Temp Pulse Resp BP Pulse Ox 06/03/19 10:47 97.8 F 77 20 H 153/73 H 96 General: Well nourished, Well developed, No Acute Distress Head: Normocephalic, Atraumatic Eyes: Perrl, EOMI ENT: Moist mucous membranes, No rhinorrhea Neck: Supple, Nontender Cardiovascular: Regular rate, Regular rhythm, No murmurs, Murmur Respiratory: No distress, CTA bilaterally, Chest nontender Abdomen: Soft, Nontender, Nondistended, Normal bowel sounds Back: Normal Inspection, - - Patient has pain to palpation over her left lower lumbar and SI joint. Patient also has diffuse lower right paraspinal muscle tenderness. No step-offs or crepitance noted midline. Extremities: Nontender, No edema Skin: Normal color, No rash Neurological: Alert, Oriented x3, Cranial nerves II-XII grossly intact, Normal Strength, Normal Sensation Psychological: Normal affect, Normal Mood Diagnostic/Tx/Re-eval Clinical Impression(s) from Imaging Studies Lumbar Spine X-Ray 06/03/19 11:55 IMPRESSION: Mild L5 compression fracture, new since April. Stable severe T12 compression fracture with prior vertebral augmentation. Electronically Signed: Ed Owen MD (Brooks) at 12:33 EDT , Service support , - Medical Decision Making Patient was evaluated for back pain. Atraumatic. Does have a history of a kyphoplasty. No signs of cauda equina. I am not concerned for abscess. Patient has a history of chronic pain. This is similar to it. I do not feel x- rays need to be obtained at this time. Patient's pain will be treated. The patient was seen and evaluated with the residents, Dr. Francisco. She has no red flag symptoms. Trays were obtained which demonstrate a small compression deformity of L5. The patient was treated with analgesics and was improved. At this point, I do feel that she is safe for outpatient therapy and she is comfortable with this. She will be given a short course of analgesics. Impression 1. L5 compression fracture ED Disposition - Plan for ED Patient: Disposition: Home or Assisted Living Instructions: Back Fracture (Compression Fracture) Prescriptions: Oxycodone HCl/Acetaminophen [Percocet 5/325] 1 tab PO Q6H PRN PRN 3 Days #12 tab PRN Reason: Pain Prescription Printed Referrals: Osiel Arzola MD [Primary Care Provider] -
--- NOTE | 2019-06-03 11:55 | RAD_ITS ---
STUDY: X-RAY - LUMBAR SPINE REASON FOR EXAM: Female, 78 years old. Stabbing pain in the low back since TECHNIQUE: 3 view(s) of the lumbar spine were obtained. COMPARISON: 04/22/2019 FINDINGS: There is an exaggerated thoracolumbar junction kyphosis. There is no substantial scoliosis. There is a normal alignment of the vertebrae. There is diffuse demineralization with multi-level endplate spondylosis. Normal disc space heights. Stable severe compression deformity of T12 with vertebral augmentation cemented. There is mild compression deformity of L5 involving the superior endplate. There is atherosclerotic calcification of the abdominal aorta without a demonstrated aneurysm. Cholecystectomy clips are noted. RAD/Lumbar Spine 2 or 3 Views IMPRESSION: Mild L5 compression fracture, new since April. Stable severe T12 compression fracture with prior vertebral augmentation. Electronically Signed: Ed Owen MD ([place]) at 12:33 EDT , Service support ,
[2019-06-03] MEDS: oxyCODONE 5 MG Tablet 10 MG PO (12:04)
[2019-06-03] MEDS: Ondansetron ODT 4 MG Tablet PO (12:13)
== END 2019-06-03 12:50 | disposition home or self-care (01) ==
LOC: ED 11:42
PROVIDERS: Emergency Provider Emergency Medicine; Family Provider Family Medicine; PCP Family Medicine
DX: M48.56XA Collapsed vertebra, not elsewhere classified, lumbar region, initial encounter for fracture (principal); Z82.49 Family history of ischemic heart disease and other diseases of the circulatory system; Z88.0 Allergy status to penicillin; Z88.1 Allergy status to other antibiotic agents; Z88.2 Allergy status to sulfonamides; Z88.6 Allergy status to analgesic agent; Z90.49 Acquired absence of other specified parts of digestive tract; Z90.710 Acquired absence of both cervix and uterus; Z95.1 Presence of aortocoronary bypass graft
CPT/HCPCS: 72100; 99283

== ENCOUNTER 2019-06-19 15:18 | Emergency (ER) | payer MEDICARE, SELFPAY ==
[2019-06-19] VITALS (7 sets, daily range): BP systolic 136–149; BP diastolic 63–85; PULSE 77–94; RESP 10–24; TEMP 36.6; O2SAT 95–99; BMI 35.2
--- NOTE | 2019-06-19 15:23 | EKG12_ITS ---
Test Reason : REPEAT Blood Pressure : / mmHG Vent. Rate : 078 BPM Atrial Rate : 078 BPM P-R Int : 180 ms QRS Dur : 138 ms QT Int : 426 ms P-R-T Axes : 035 -22 -22 degrees QTc Int : 485 ms Sinus rhythm with frequent Premature ventricular complexes Non-specific intra-ventricular conduction block Abnormal ECG Confirmed by KALE YADAV, MISTY ([id number]), supervising editor trailer RAINER EUGENE ([id number]) on 06/21/2019 11:06:00 AM Referred By: JOVI Confirmed By:MISTY HENLEY MD
--- NOTE | 2019-06-19 15:35 | RAD_ITS ---
STUDY: X-RAY CHEST REASON FOR EXAM: Female, 78 years old. Chest pain. TECHNIQUE: Single AP portable view of the chest. COMPARISON: Comparison is made with prior study dated May 28, 2019. FINDINGS: EKG electrodes are seen. The lungs are clear and expanded. There is no demonstrated pleural abnormality. Sternal cerclage wires are present from a prior sternotomy. Borderline cardiomegaly. Normal mediastinum and pranay. Normal visualized pulmonary arteries. There is atherosclerotic calcification of the aortic arch with tortuosity. There are diffuse degenerative changes of the visualized thoracic spine. Normal visualized ribs, clavicles, and shoulders. Small hiatal hernia. RAD/Chest 1 View (Portable) IMPRESSION: No acute abnormality is seen. Electronically Signed: Omid Bansal, at 15:55 EST , Service support ,
--- NOTE | 2019-06-19 15:42 | ED.VIS.GEN ---
History of Present Illness Chief Complaint: Chest Pain Informant: Patient Onset: Today Timing: Continuous Current Severity: Mild Maximum Severity: Moderate Narrative: Patient presents with left upper chest pain that was present when she awoke from sleep at 5 AM this morning. It is been persistent throughout the day. She does feel somewhat more short of breath than normal. She also reports that her left hand wants to go to sleep. She flexes and extends her fingers a few times and those symptoms go away. Patient states the chest pain did not change with exertion. She did not tell her family about it until later this afternoon. Patient does have a history of cardiac disease with prior bypass surgery. Last available stress testing That I can see in our system is from 2017. Past Medical History - Allergies and Home Meds Allergies/Adverse Reactions: Allergies doxycycline Allergy (Mild, Verified 06/19/19 15:41) Swelling Sulfa (Sulfonamide Antibiotics) Allergy (Verified 06/19/19 15:24) Rash tetracycline [Tetracycline] Allergy (Verified 06/19/19 15:41) Swelling dicyclomine Adverse Reaction (Verified 06/19/19 15:24) Other NSAIDS (Non-Steroidal Anti-Inflamma Adverse Reaction (Verified 06/19/19 15:24) Other Penicillins Adverse Reaction (Verified 06/19/19 15:24) Unknown Primary Care Physician: Osiel Arzola MD [Primary Care Provider] - Prior records reviewed: Yes Past Medical History: - - Reviewed Surgical History: appendectomy, cholecystectomy, coronary bypass surgery - 2002, hysterectomy, - - Breast reduction, right knee partial replacement, left knee repair, perforated bowel repair. kyphoplasty Lives: With Family Smoking Status: Never smoker - Family History Maternal Family History: Family History (Last Reviewed 05/02/19 @ 15:56 by VERNA Best) Mother Myocardial infarction Hypertension Heart disease History of coronary artery bypass graft Brother Hypertension History of coronary artery bypass graft Father Cancer Family History: Reports: Heart Disease, Hypertension Paternal Family History: Family History (Last Reviewed 05/02/19 @ 15:56 by VERNA Best) Mother Myocardial infarction Hypertension Heart disease History of coronary artery bypass graft Brother Hypertension History of coronary artery bypass graft Father Cancer Family History: Reports: Cancer Review of Systems General: Denies: Chills, Fever Eyes: Denies: Visual changes - bilaterally ENT: Reports: Rhinorrhea. Denies: Bilateral ear pain Cardiovascular: Reports: Chest pain. Denies: Palpitations, Heart racing Respiratory: Reports: Dyspnea. Denies: Cough Gastrointestinal: Denies: Abdominal pain, Nausea, Vomiting, Diarrhea Genitourinary: Denies: Dysuria Musculoskeletal: Reports: Back pain. Denies: Extremity Pain Skin: Denies: Rash Neurological: Reports: Parasthesia - Left hand. Denies: Headache, Weakness Hematologic: Denies: Easy bruising Allergy: Denies: Uticaria Physical Exam Vital Signs/Narrative: Vital Signs Temp Pulse Resp BP Pulse Ox 06/19/19 15:33 91 16 149/73 H 96 06/19/19 15:19 97.8 F 94 24 H 136/63 H 97 Inital Vital Signs reviewed: Yes General: Well nourished, Well developed Head: Normocephalic ENT: Moist mucous membranes Neck: Supple Cardiovascular: Regular rate, Regular rhythm, Murmur Respiratory: No distress, CTA bilaterally Abdomen: Soft, Nontender, Hypoactive bowel sounds Extremities: Nontender, Edema - 3+ edema bilateral lower extremities, symmetric Skin: Normal color, No rash Neurological: Alert, Oriented x3 Psychological: Normal affect Diagnostic/Tx/Re-eval Impressions Chest X-Ray 06/19/19 15:35 IMPRESSION: No acute abnormality is seen. Electronically Signed: Omid Bansal, at 15:55 EST , Service support , 06/19/19 15:35 Chest 1 View (Portable) [RAD] Stat Laboratory Results 06/19/19 06/19/19 06/19/19 15:35 15:35 15:35 WBC 6.7 RBC 4.10 L Hgb 12.0 Hct 38.0 MCV 92.7 MCH 29.3 MCHC 31.6 L RDW Std Deviation 50.5 H RDW Coeff of Maty 14.8 H Plt Count 177 MPV 12.4 H Immature Gran % (Auto) 0.400 Neut % (Auto) 51.1 Lymph % (Auto) 41.7 H [place] % (Auto) 5.8 Eos % (Auto) 0.9 Baso % (Auto) 0.1 Absolute Neuts (auto) 3.4 Absolute Lymphs (auto) 2.79 Nucleated RBC % 0 PT 26.7 H INR 2.5 Sodium 137 Potassium 3.5 Chloride 103 Carbon Dioxide 27.0 Anion Gap 7 BUN 13 Creatinine 0.97 Estim Creat Clear Calc 43.30 Est GFR (MDRD) Af Amer 71 Est GFR (MDRD) Non-Af 59 L BUN/Creatinine Ratio 13.4 Glucose 141 H Calcium 9.2 Troponin I < 0.015 06/19/19 18:30 WBC RBC Hgb Hct MCV MCH MCHC RDW Std Deviation RDW Coeff of Maty Plt Count MPV Immature Gran % (Auto) Neut % (Auto) Lymph % (Auto) [place] % (Auto) Eos % (Auto) Baso % (Auto) Absolute Neuts (auto) Absolute Lymphs (auto) Nucleated RBC % PT INR Sodium Potassium Chloride Carbon Dioxide Anion Gap BUN Creatinine Estim Creat Clear Calc Est GFR (MDRD) Af Amer Est GFR (MDRD) Non-Af BUN/Creatinine Ratio Glucose Calcium Troponin I 0.017 - EKG Initial EKG Interpretation: Sinus Rhythm - Sinus at 92 with intraventricular conduction delay. No acute ST change. Follow-up EKG Interpretation: Sinus Rhythm - Sinus at 78 with single PVC. Intraventricular conduction delay with no ST change. - Medical Decision Making Patient was given aspirin on arrival. She had taken Percocet shortly prior to arrival and therefore was not given the morphine and Zofran that was initially ordered. On repeat evaluation she was resting comfortably and had no complaints. I spoke with cardiology, Dr. Mendez. He recommended 3-hour repeat troponin and if unremarkable could be discharged to home. Repeat troponin is 0.017, not a 20% increase. Repeat EKG is unchanged. Patient's pain started greater than 12 hours prior to this most recent blood draw. Patient has had no further pain while here. 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 Patricia. ED Disposition - Plan for ED Patient: Disposition: Home or Assisted Living Diagnosis: Chest pain Instructions: CHEST PAIN, Uncertain Cause Referrals: Osiel Arzola MD [Primary Care Provider] - Gallo Patricia MD [STAFF PHYSICIAN] - As soon as possible
[2019-06-19 15:54] LABS: Absolute Lymphocyte Count 2.79 X10^3/uL (0.83-4.51); Absolute Neutrophil Count 3.4 X10^3/uL (2.0-7.7); Basophil# 0.01 X10^3/uL; Basophil% 0.1 % (0-1); Eosinophil# 0.06 X10^3/uL; Eosinophils% 0.9 % (0-5); Lymphocyte # 2.79 X10^3/ul (4.0); Lymphocyte % 41.7 % (19-41); Mean Corp Hgb Conc 31.6 g/dL (32-36); Mean Corpuscular Hgb 29.3 pg (27.0-32.0); Mean Corpuscular Volume 92.7 fL (81-99); Mean Platelet Vol. 12.4 fl (6.2-12.0); Monocyte# 0.39 X10^3/uL; Monocyte% 5.8 % (0-10); NRBC Flagged by Analyzer 0 % (0-5); Neutrophil # 3.41 X10^3/uL (2.7-7.7); Neutrophil % 51.1 % (47-70); Platelet Count 177 K/mm3 (150-450); RBC Distribution Width CV 14.8 % (11.6-14.6); RBC Distribution Width SD 50.5 fl (35.1-43.9); White Blood Count 6.7 K/mm3 (4.4-11.0)
[2019-06-19 15:58] LABS: Anion Gap 7 (5-15); BUN 13 mg/dL (7-18); BUN/Creat Ratio 13.4 RATIO (10-20); Calcium,Total 9.2 mg/dL (8.5-10.1); Chloride 103 mmol/L (98-107); Creatinine, Serum 0.97 mg/dL (0.55-1.02); EST Glomerular Filtration Rate 59 mL/min (>60); Est Glom Filt Rate - Afr Amer 71 mL/min (>60); Glucose 141 mg/dL (74-106); Potassium 3.5 mmol/L (3.5-5.1); Sodium Level 137 mmol/L (136-145)
[2019-06-19 16:01] LABS: International Normalized Ratio 2.5; Prothrombin Time (Protime)PT. 26.7 SECONDS (11.7-14.9)
[2019-06-19] MEDS: Aspirin 81 MG TAB.CHEW 324 MG PO (16:35)
[2019-06-19] MEDS: 0.9% Normal Saline 1,000 ML 150 ML IV (16:36)
--- NOTE | 2019-06-19 18:30 | EKG12_ITS ---
Test Reason : CP Blood Pressure : / mmHG Vent. Rate : 092 BPM Atrial Rate : 092 BPM P-R Int : 176 ms QRS Dur : 132 ms QT Int : 380 ms P-R-T Axes : 050 -33 -05 degrees QTc Int : 469 ms Normal sinus rhythm Left axis deviation Non-specific intra-ventricular conduction block Abnormal ECG Confirmed by KALE YADAV, MISTY ([id number]), medical editor RAINER EUGENE ([id number]) on 06/21/2019 11:06:13 AM Referred By: MARITZA Confirmed By:MISTY HENLEY MD
[2019-06-19] MEDS: Ondansetron 4 MG/2 ML Vial IV (18:40)
== END 2019-06-19 19:26 | disposition home or self-care (01) ==
PROVIDERS: Emergency Provider Emergency Medicine; Family Provider Family Medicine; PCP Family Medicine
DX: R07.9 Chest pain, unspecified (principal); Z82.49 Family history of ischemic heart disease and other diseases of the circulatory system; Z88.0 Allergy status to penicillin; Z88.1 Allergy status to other antibiotic agents; Z88.2 Allergy status to sulfonamides; Z88.6 Allergy status to analgesic agent; Z90.49 Acquired absence of other specified parts of digestive tract; Z90.710 Acquired absence of both cervix and uterus
CPT/HCPCS: 71045; 80048; 84484; 85025; 85610; 93005; 96361; 96374; 96375; 96376; 99284; J7030; A4216; J2405

== ENCOUNTER 2019-07-03 09:23 | Day surgery (SDC) | payer MEDICARE, SELFPAY ==
[2019-06-19 15:19] VITALS: BMI 35.2
[2019-07-03] VITALS (7 sets, daily range): BP systolic 118–143; BP diastolic 63–98; PULSE 72–81; RESP 16; TEMP 36.1–36.8; O2SAT 96–100; BMI 34.7
[2019-07-03] MEDS: Bupivacaine 0.25% 30 ML Vial (01:07)
[2019-07-03 10:11] LABS: International Normalized Ratio 1.2; Prothrombin Time (Protime)PT. 14.9 SECONDS (11.7-14.9)
[2019-07-03] MEDS: Lactated Ringers 1,000 ML 100 ML IV (10:44)
--- NOTE | 2019-07-03 10:50 | RAD_ITS ---
STUDY: CAUDAL BLOCK. REASON FOR EXAM: Female, 78 years old. Low back pain. FLUOROSCOPY TIME (if supplied): ( 6 seconds. ) minutes/seconds. 2 coned-down images were obtained. TECHNIQUE: Intraoperative fluoroscopic services provided for caudal block. COMPARISON: None. FINDINGS: The tip of the spinal needle is in the mid posterior aspect of the sacrum. RAD/Fluor Guidance for Spine Inj IMPRESSION: The tip of the spinal needle is at the posterior midportion of the sacrum. Electronically Signed: Omid Bansal, at 9:41 EST , Service support ,
[2019-07-03] MEDS: 0.9% Normal Saline (Pres. free 10 ML Vial (11:07)
[2019-07-03] MEDS: MethylPREDNISolone Acetate 80 MG/ML Vial (11:07)
--- NOTE | 2019-07-03 12:50 | OP.PCM_ITS ---
Report of Operation Date of Procedure: 07/03/19 Description of Surgical Findings:: PREOPERATIVE DIAGNOSIS: Lumbosacral radiculopathy, lumbosacral degenerative disc disease, lumbosacral spinal stenosis POSTOPERATIVE DIAGNOSIS: Lumbosacral radiculopathy, lumbosacral degenerative disc disease, lumbosacral spinal stenosis PROCEDURE PERFORMED: Caudal epidural steroid injection. ANESTHESIA: MAC. BLOOD LOSS: Minimal. COMPLICATIONS: None. DESCRIPTION OF PROCEDURE: History and physical of today was reviewed. Risks and benefits of the procedure were explained. The patient understood and agreed to proceed. Informed consent was obtained. IV inserted per routine protocol. The patient was taken to the operating room and placed in the prone position with a pillow positioned underneath the abdomen. The lower back and tailbone area was prepped and draped in a sterile fashion using iodine x3. Under flu oroscopy guidance on a lateral view, the caudal space was identified. The skin and subcutaneous tissue was anesthetized with approximately 3 mL of 1% lidocaine using a 25-gauge regular needle. Under direct visualization with fluoroscopy, using a 22-gauge 3-1/2-inch spinal needle, the needle was advanced via the skin through the sacral hiatus. The tip of the needle was passed through the sacroco ccygeal ligament and advanced to approximately S4 area. After negative aspiration of blood or CSF, a total of 3 mL of contrast was injected to confirm correct placement of the needle as well as cephalad spread. The spread was followed to approximately L5 area. After confirmation on AP as well as lateral view and repeated negative aspiration, a total of 15 mL of preservative-free 0.125% Marcaine with 80 mg of Depo-Medrol was injected easily. The needle was then removed intact. The patient experienced no sign or symptoms of intrathecal or intravascular injection. The patient experienced no paresthesia. The procedure was completed without any apparent difficulty or any complications. The patient appeared to tolerate it well. ASSESSMENT AND PLAN: This is a 78-year-old female with lumbosacral radiculopathy, lumbosacral degenerative disc disease, lumbosacral spinal stenosis status post caudal epidural steroid injection.patient will continue her current medications patient will follow in approximately 2 weeks for reevaluation.
[2019-07-04 07:36] LABS: Prothrombin Time Fingerstick 17.6 SEC (11.9-14.4)
== END 2019-07-03 11:58 | disposition home or self-care (01) ==
LOC: SDC 09:25 → AC 09:27
PROVIDERS: Family Provider Family Medicine; PCP Family Medicine; Referring Provider Anesthesiology Pain Medicine; Visit Provider Anesthesiology Pain Medicine
PROC: 3E0S3BZ Introduction of Anesthetic Agent into Epidural Space, Percutaneous Approach (ICD-10-PCS; CPT 62282; principal; 2019-07-03 10:45)
DX: M51.17 Intervertebral disc disorders with radiculopathy, lumbosacral region (principal); M48.07 Spinal stenosis, lumbosacral region; I25.10 Atherosclerotic heart disease of native coronary artery without angina pectoris; E11.9 Type 2 diabetes mellitus without complications; E78.5 Hyperlipidemia, unspecified; I10 Essential (primary) hypertension; I25.2 Old myocardial infarction; Z86.718 Personal history of other venous thrombosis and embolism; M17.12 Unilateral primary osteoarthritis, left knee; M25.562 Pain in left knee; M54.9 Dorsalgia, unspecified; Z79.891 Long term (current) use of opiate analgesic; M51.37 Other intervertebral disc degeneration, lumbosacral region; M47.817 Spondylosis without myelopathy or radiculopathy, lumbosacral region; S22.000A Wedge compression fracture of unspecified thoracic vertebra, initial encounter for closed fracture
CPT/HCPCS: 62323; 36416; 64483; 77003; 85610; J7120; J3490

== ENCOUNTER 2019-07-12 08:31 | Outpatient (RCR) | payer MEDICARE, SELFPAY ==
[2019-06-19 15:19] VITALS: BMI 35.2
[2019-06-30 10:39] LABS: International Normalized Ratio 1.6; Prothrombin Time (Protime)PT. 18.5 SECONDS (11.7-14.9)
[2019-06-30 11:01] LABS: AST(SGOT) 19 U/L (15-37); Alanine Aminotransfer ALT/SGPT 18 U/L (13-56); Albumin, Serum 3.1 g/dL (3.2-5.0); Alkaline Phosphatase 101 U/L (45-117); Bilirubin, Direct 0.09 mg/dL (0.00-0.30); Cholesterol 161 mg/dL (200); High Density Lipoprotein 47 mg/dL; Protein, Total 7.1 g/dL (6.4-8.2); Triglycerides 136 mg/dL; Very Low Density Lipoprotein 27 mg/dL (5-40)
[2019-07-07 15:32] LABS: International Normalized Ratio 1.2; Prothrombin Time (Protime)PT. 14.8 SECONDS (11.7-14.9)
[2019-07-10 09:48] LABS: International Normalized Ratio 1.6; Prothrombin Time (Protime)PT. 18.6 SECONDS (11.7-14.9)
[2019-07-12 09:52] LABS: International Normalized Ratio 1.8; Prothrombin Time (Protime)PT. 21.1 SECONDS (11.7-14.9)
== END 2019-07-12 18:00 | disposition home or self-care (01) ==
LOC: LAB 08:31
PROVIDERS: Physician Assistant Medical; Family Provider Family Medicine; PCP Family Medicine; Referring Provider Internal Medicine Cardiovascular Disease; Visit Provider Internal Medicine Cardiovascular Disease
DX: Z79.01 Long term (current) use of anticoagulants (principal); I25.10 Atherosclerotic heart disease of native coronary artery without angina pectoris; E78.00 Pure hypercholesterolemia, unspecified
CPT/HCPCS: 36415; 80061; 80076; 85610

== ENCOUNTER → 2019-07-26 12:58 | Outpatient (CLI) | payer MEDICARE, SELFPAY ==
[2019-07-19 08:59] VITALS: BMI 35.5
--- NOTE | 2019-07-26 13:00 | CDU_ITS ---
Reason For Study: Left carotid bruit Rt. Velocities/BP Lt. Velocities/BP Prox CCA 86.5/10.8 cm/sec. Prox CCA 119.1/11.5 cm/sec. Mid CCA 77.3/12.1 cm/sec. Mid CCA 93.6/13.3 cm/sec. Dist CCA 66.9/14.7 cm/sec. Dist CCA 67.3/14.6 cm/sec. Prox ICA 135.6/22.4 cm/sec. Prox ICA 121/22.4 cm/sec. Mid ICA 111.2/16 cm/sec. Mid ICA 97.3/17 cm/sec. Dist ICA 68.2/14.7 cm/sec. Dist ICA 84.5/22.5 cm/sec. Rt. ICA/CCA = 1.8. Lt. ICA/CCA = 1.3. Prox ECA 79.9 cm/sec. Prox ECA 61.9 cm/sec. Rt. Vert. 43.7/12.6 cm/sec. Lt. Vert. 49.4/11.6 cm/sec. Right Extracranial There is homogeneous, smooth atherosclerotic plaque noted in the right common carotid artery. There is heterogeneous, irregular atherosclerotic plaque noted in the right internal carotid artery. There is intimal thickening but no significant atherosclerotic plaque noted in the right external carotid artery. Antegrade flow is noted in the right vertebral artery. Left Extracranial There is homogeneous, smooth atherosclerotic plaque noted in the left common carotid artery. There is heterogeneous, irregular atherosclerotic plaque noted in the left internal carotid artery. There is heterogeneous, irregular atherosclerotic plaque noted in the left external carotid artery. The left external carotid artery is not well visualized. Antegrade flow is noted in the left vertebral artery. Procedure Carotid Duplex [id number]. Exam performed in department. Interpretation Summary Moderate (50-69%) stenosis right extracranial internal carotid. Mild (<50%) stenosis left extracranial internal carotid. Flow within the vertebral arteries is antegrade bilaterally. Ordering Physician: Bre Marinelli Referring Physician: Osiel Arzola Performed By: Mercy Gilbert RVT
== END ==
PROVIDERS: Family Provider Family Medicine; PCP Family Medicine; Referring Provider Physician Assistant Medical; Visit Provider Physician Assistant Medical
DX: R09.89 Other specified symptoms and signs involving the circulatory and respiratory systems (principal); I25.10 Atherosclerotic heart disease of native coronary artery without angina pectoris; I10 Essential (primary) hypertension
CPT/HCPCS: 93880

== ENCOUNTER 2019-08-11 10:37 | Outpatient (RCR) | payer MEDICARE, SELFPAY ==
[2019-07-03 10:07] VITALS: BMI 34.7
[2019-07-17 09:27] LABS: International Normalized Ratio 2.8; Prothrombin Time (Protime)PT. 29.4 SECONDS (11.7-14.9)
[2019-07-19 10:59] LABS: Prothrombin Time (Protime)PT. 31.2 SECONDS (11.7-14.9)
[2019-08-02 15:45] LABS: Prothrombin Time (Protime)PT. 38.6 SECONDS (11.7-14.9)
[2019-08-02 15:57] LABS: International Normalized Ratio 3.9
[2019-08-11 11:47] LABS: International Normalized Ratio 3.1; Prothrombin Time (Protime)PT. 32.3 SECONDS (11.7-14.9)
== END 2019-08-11 18:00 | disposition home or self-care (01) ==
LOC: LAB 10:37
PROVIDERS: Family Provider Family Medicine; PCP Family Medicine; Referring Provider Internal Medicine Cardiovascular Disease; Visit Provider Internal Medicine Cardiovascular Disease
DX: Z79.01 Long term (current) use of anticoagulants (principal)
CPT/HCPCS: 36415; 85610

== ENCOUNTER 2019-09-01 14:26 | Outpatient (RCR) | payer MEDICARE, SELFPAY ==
[2019-07-19 08:59] VITALS: BMI 35.5
[2019-09-01 15:26] LABS: International Normalized Ratio 2.2; Prothrombin Time (Protime)PT. 24.8 SECONDS (11.7-14.9)
== END 2019-09-01 18:00 | disposition home or self-care (01) ==
LOC: LAB 14:26
PROVIDERS: Family Provider Family Medicine; PCP Family Medicine; Referring Provider Internal Medicine Cardiovascular Disease; Visit Provider Internal Medicine Cardiovascular Disease
DX: Z79.01 Long term (current) use of anticoagulants (principal)
CPT/HCPCS: 36415; 85610

== ENCOUNTER 2019-09-17 19:00 | Emergency (ER) | payer MEDICARE, SELFPAY ==
[2019-07-19 08:59] VITALS: BMI 35.5
[2019-09-17 19:03] VITALS: BP 146/74; PULSE 86; RESP 16; TEMP 36.5; O2SAT 96; BMI 35.8
--- NOTE | 2019-09-17 19:25 | RAD_ITS ---
STUDY: X-RAY - RIGHT FOOT CLINICAL: Female, 78 years old. NO KNOWN INJURY, RT MEDIAL ANKLE FRAUSTO STARTED THIS MORNING TECHNIQUE: 3 view(s) of the foot. COMPARISON: None. FINDINGS: There is no acute fracture or destructive lesion. There are degenerative changes in the first metatarsophalangeal joint. There is diffuse soft tissue swelling. There are chronic degenerative changes at the insertion of the Achilles. There is focal erosive change along the anterior talus. RAD/Foot min 3 Views IMPRESSION: 1. No acute fracture. 2. Focal erosive change in the anterior talus, unclear etiology, possibly osteomyelitis versus destructive lesion. Electronically Signed: Leigh Darby, at 20:03 EST Tel , Service support ,
--- NOTE | 2019-09-17 19:25 | RAD_ITS ---
STUDY: X-RAY - RIGHT ANKLE REASON FOR EXAM: Female, 78 years old. NO KNOWN INJURY, RT MEDIAL ANKLE PAIN STARTED THIS MORNING TECHNIQUE: 3 view(s) of the ankle. COMPARISON: None. FINDINGS: There is advanced demineralization. There is no acute fracture or destructive lesion. There is mild indistinct periosteal reaction along the medial distal tibia. There is remote lateral malleolar avulsion injury. There is severe soft tissue thickening and surgical clips in the medial soft tissues, possibly vein harvesting. RAD/Ankle min 3 Views IMPRESSION: No acute fracture. Distal tibial periosteal reaction, unknown if this is acute or chronic. Diffuse soft tissue abnormal body. Electronically Signed: Leigh Darby, at 19:59 EST Tel , Service support ,
--- NOTE | 2019-09-17 19:34 | ED.VISSUMM ---
- ER Visit Summary Date of Service: 09/17/19 Chief Complaint: Right foot and ankle pain History of Present Illness: The patient is a 78 F presenting with right foot and ankle pain. This started this morning. She does not recall a specific injury. She uses a walker and a lift chair at home. She has chronic lower extremity swelling. She has increasing swelling to the right medial ankle. She denies calf pain. Denies other complaints. Physical Examination: Vitals are stable. Patient is afebrile. Alert no acute distress. HEENT exam is unremarkable. Neck is supple. Lungs are clear and equal bilaterally. Heart is regular rate and rhythm. Abdomen is soft nontender nondistended. Extremities right medial ankle tenderness. Mild diffuse right foot tenderness. No erythema or warmth. Symmetric edema bilaterally. Normal distal pulses. Skin is warm and dry. No focal neurologic deficit. Remainder of exam is unremarkable. Emergency Department Course and Treatment: Right foot xray shows no acute fracture. Focal erosive change in the anterior talus, unclear etiology, possibly osteomyelitis versus destructive lesion. Right ankle xray shows no acute fracture. Distal tibial periosteal reaction, unknown if this is acute or chronic. INR 2.8. Patient was given [place]. CBC shows normal white count, hemoglobin 9.6, platelet 111. Sed rate 38. Chemistries unremarkable. Discussed with Dr. Jones and Dr. Elias. X-rays were reviewed by Dr. Elias. Patient will be discharged to follow closely with Dr. Elias. Advised return to ED for worsening complaints. Disposition: Discharge home Impression: Right foot and ankle pain This note was generated with [employer] dictation software. It may contain incorrect words, spelling, and punctuation that were not noted in review of the chart prior to signing ED Disposition - Plan for ED Patient: Instructions: What Is Arthritis? Prescriptions: Hydrocodone Bitart/Apap 5-325 [[place] 5MG-325MG] 1 tab PO Q6H PRN PRN 3 Days #10 tab PRN Reason: Pain Prescription Printed Referrals: Tex Elias DPM [STAFF PHYSICIAN] - Osiel Arzola MD [Primary Care Provider] -
[2019-09-17] MEDS: HYDROcodone Bitartrate/Apap 5/325 Tablet PO (19:48)
[2019-09-17 20:07] LABS: International Normalized Ratio 2.8; Prothrombin Time (Protime)PT. 29.6 SECONDS (11.7-14.9)
[2019-09-17 20:50] LABS: Anion Gap 3 (5-15); BUN 13 mg/dL (7-18); BUN/Creat Ratio 12.7 RATIO (10-20); Calcium,Total 8.7 mg/dL (8.5-10.1); Chloride 108 mmol/L (98-107); Creatinine, Serum 1.02 mg/dL (0.55-1.02); EST Glomerular Filtration Rate 55 mL/min (>60); Est Glom Filt Rate - Afr Amer 67 mL/min (>60); Estimated Creatinine Clearance 41.18 ml/min; Glucose 119 mg/dL (74-106); Potassium 4.3 mmol/L (3.5-5.1); Sodium Level 139 mmol/L (136-145)
[2019-09-17 21:04] LABS: Absolute Lymphocyte Count 1.91 X10^3/uL (0.83-4.51); Absolute Neutrophil Count 3.3 X10^3/uL (2.0-7.7); Eosinophil# 0.06 X10^3/uL; Hematocrit 31.1 % (37-47); Hemoglobin 9.6 g/dL (12.0-15.0); Lymphocyte # 1.91 X10^3/ul (4.0); Lymphocyte % 32.8 % (19-41); Mean Corp Hgb Conc 30.9 g/dL (32-36); Mean Corpuscular Hgb 29.4 pg (27.0-32.0); Mean Corpuscular Volume 95.4 fL (81-99); Mean Platelet Vol. 12.5 fl (6.2-12.0); Monocyte# 0.53 X10^3/uL; Monocyte% 9.1 % (0-10); NRBC Flagged by Analyzer 0 % (0-5); Neutrophil # 3.29 X10^3/uL (2.7-7.7); Neutrophil % 56.6 % (47-70); Platelet Count 111 K/mm3 (150-450); RBC Distribution Width CV 16.3 % (11.6-14.6); RBC Distribution Width SD 56.6 fl (35.1-43.9); Red Blood Count 3.26 M/mm3 (4.2-5.4); White Blood Count 5.8 K/mm3 (4.4-11.0)
[2019-09-17 21:06] LABS: Erythrocyte Sedimentation Rate 38 mm/hr (0-30)
--- NOTE | 2019-09-17 22:08 | DCINST.ED_ITS ---
ED Disposition - Plan for ED Patient: Instructions: What Is Arthritis? Prescriptions: Hydrocodone Bitart/Apap 5-325 [[place] 5MG-325MG] 1 tablet PO Q6H PRN PRN 3 Days #10 tablet PRN Reason: Pain Referrals: Osiel Arzola MD [Primary Care Provider] - Tex Elias DPM [STAFF PHYSICIAN] -
[2019-09-17 22:24] VITALS: BP 138/64; PULSE 78; RESP 17; O2SAT 96
== END 2019-09-17 22:25 | disposition home or self-care (01) ==
LOC: ED 19:52
PROVIDERS: Emergency Provider Emergency Medicine; PCP Family Medicine
DX: M79.671 Pain in right foot (principal); M25.571 Pain in right ankle and joints of right foot; M79.89 Other specified soft tissue disorders; I25.10 Atherosclerotic heart disease of native coronary artery without angina pectoris; I50.9 Heart failure, unspecified; E11.9 Type 2 diabetes mellitus without complications; K21.9 Gastro-esophageal reflux disease without esophagitis; E78.00 Pure hypercholesterolemia, unspecified; Z79.01 Long term (current) use of anticoagulants; Z90.49 Acquired absence of other specified parts of digestive tract; Z90.710 Acquired absence of both cervix and uterus; I11.0 Hypertensive heart disease with heart failure
CPT/HCPCS: 36415; 73610; 73630; 80048; 85025; 85610; 85652; 99283; A4216

== ENCOUNTER 2019-10-19 16:02 | Outpatient (RCR) | payer MEDICARE, SELFPAY ==
[2019-07-19 08:59] VITALS: BMI 35.5
[2019-10-19 17:53] LABS: International Normalized Ratio 3.2; Prothrombin Time (Protime)PT. 32.6 SECONDS (11.7-14.9)
== END 2019-10-19 18:00 | disposition home or self-care (01) ==
LOC: LAB 16:02
PROVIDERS: Family Provider Family Medicine; PCP Family Medicine; Referring Provider Internal Medicine Cardiovascular Disease; Visit Provider Internal Medicine Cardiovascular Disease
DX: Z79.01 Long term (current) use of anticoagulants (principal)
CPT/HCPCS: 36415; 85610

== ENCOUNTER 2019-11-08 09:29 | Inpatient (IN) | payer MEDICARE, SELFPAY ==
[2019-11-08] VITALS (11 sets, daily range): BP systolic 125–164; BP diastolic 65–108; PULSE 85–96; RESP 15–22; TEMP 36.6–37.1; O2SAT 93–97; BMI 39.2; BMI 37.7
--- NOTE | 2019-11-08 09:35 | EKG12_ITS ---
Test Reason : SOB Blood Pressure : / mmHG Vent. Rate : 091 BPM Atrial Rate : 091 BPM P-R Int : 182 ms QRS Dur : 132 ms QT Int : 406 ms P-R-T Axes : 068 005 025 degrees QTc Int : 499 ms Sinus rhythm with Fusion complexes and Premature atrial complexes with Aberrant conduction Non-specific intra-ventricular conduction block Cannot rule out Anterior infarct , age undetermined Abnormal ECG Confirmed by LINDSAY YADAV, LEONOR ([id number]), desk editor DIANA STEWART ([id number]) on 11/09/2019 1:37:42 PM Referred By: Yanna Seymour Confirmed By:LEONOR MONTOYA MD
--- NOTE | 2019-11-08 09:40 | RAD_ITS ---
STUDY: X-RAY CHEST REASON FOR EXAM: Female, 78 years old. SOB AND COUGH xCOUPLE DAYS -- HX OF CHF AND WI TECHNIQUE: Single AP portable view of the chest. COMPARISON: Comparison is made with prior examination dated June 19, 2019. FINDINGS: EKG electrodes are seen. Mild increased interstitial markings in both lungs suggestive of a mild CHF. There is no demonstrated pleural abnormality. Sternal cerclage wires and vascular clips are present from a prior sternotomy and coronary artery bypass graft procedure (CABG). Moderate cardiomegaly. Normal mediastinum and pranay. Normal visualized pulmonary arteries. There is atherosclerotic calcification of the aortic arch with tortuosity. There are diffuse degenerative changes of the visualized thoracic spine. Normal visualized ribs, clavicles, and shoulders. There is no demonstrated abnormality of the visualized soft tissue structures of the upper abdomen. RAD/Chest 1 View (Portable) IMPRESSION: Findings suggestive of a mild degree of CHF. Cardiomegaly. Electronically Signed: Omid Bansal, at 9:56 EDT , Service support ,
--- NOTE | 2019-11-08 09:48 | ED.VIS.GEN ---
History of Present Illness Chief Complaint: Shortness of Breath Informant: Patient Onset: Days Context: Gradual Onset Timing: Continuous Narrative: Patient is an 78-year-old female with history of coronary artery disease, venous thromboembolism and heart failure presenting with shortness of breath and chest pain. Patient states she is at shortness of breath and cough for the past 3 days or so. She states she has had some phlegm production but is not not colored as. She is unsure if she is had a fever. She has some associated nausea but did take Zofran this morning for it. She states the pain is on the left side of her chest and she also has pain in her left arm. Patient called EMS today and her O2 saturation was 88% when they picked her up. She is placed on 4 L. Patient also had myalgias feeling like her heart racing. She notes she is had some increased light of her lower extremities over the past 5 days or so. She denies any sick contacts but does live with a young grandson who has been working every day. She denies any other complaints at this time. Past Medical History - Allergies and Home Meds Allergies/Adverse Reactions: Allergies doxycycline Allergy (Mild, Verified 11/08/19 09:36) Swelling Sulfa (Sulfonamide Antibiotics) Allergy (Verified 11/08/19 09:36) Rash tetracycline [Tetracycline] Allergy (Verified 11/08/19 09:36) Swelling dicyclomine Adverse Reaction (Verified 11/08/19 09:36) Other NSAIDS (Non-Steroidal Anti-Inflamma Adverse Reaction (Verified 11/08/19 09:36) Other Penicillins Adverse Reaction (Verified 11/08/19 09:36) Unknown Primary Care Physician: Osiel Arzola MD [Primary Care Provider] - Past Medical History: - - Hypertension, coronary artery disease, ischemic cardiomyopathy, history of PE, hyperlipidemia Surgical History: appendectomy, cholecystectomy, coronary bypass surgery - 2002, hysterectomy, - - Breast reduction, right knee partial replacement, left knee repair, perforated bowel repair. kyphoplasty Smoking Status: Never smoker - Family History Maternal Family History: Family History (Last Reviewed 07/19/19 @ 09:46 by VERNA Best) Mother Myocardial infarction Hypertension Heart disease History of coronary artery bypass graft Brother Hypertension History of coronary artery bypass graft Father Cancer Family History: Reports: Heart Disease, Hypertension Paternal Family History: Family History (Last Reviewed 07/19/19 @ 09:46 by VERNA Best) Mother Myocardial infarction Hypertension Heart disease History of coronary artery bypass graft Brother Hypertension History of coronary artery bypass graft Father Cancer Family History: Reports: Cancer Review of Systems General: Reports: Malaise. Denies: Chills, Fever, Sweats Eyes: Denies: Visual changes - bilaterally, Diplopia ENT: Denies: Rhinorrhea, Sore throat Cardiovascular: Reports: Chest pain. Denies: Palpitations Respiratory: Reports: Dyspnea, Cough, Sputum, Dyspnea on exertion Gastrointestinal: Reports: Nausea. Denies: Abdominal pain, Vomiting, Diarrhea, Melena, Hematochezia Genitourinary: Denies: Dysuria, Hematuria, Frequency Musculoskeletal: Reports: Swelling - Lower extremites bilaterally . Denies: Back pain, Extremity Pain Skin: Denies: Rash, Wounds Neurological: Denies: Headache, Weakness, Numbness Physical Exam Vital Signs/Narrative: Vital Signs Temp Pulse Resp BP Pulse Ox 11/08/19 09:37 97.8 F 92 17 163/108 H 96 11/08/19 09:31 97.8 F 96 19 H 163/108 H 95 Inital Vital Signs reviewed: Yes General: Well nourished, Well developed, No Acute Distress Head: Normocephalic, Atraumatic Eyes: Perrl, EOMI ENT: Moist mucous membranes, No rhinorrhea, TM's clear Neck: Supple, Nontender, No JVD Cardiovascular: Regular rate, Regular rhythm, No murmurs Respiratory: No distress, Chest nontender, Diminished. Negative for: Rhonchi, Wheezing, Retractions Abdomen: Soft, Nontender, Nondistended, Normal bowel sounds Back: Nontender, Normal Inspection Extremities: Nontender, Edema - 1+ pedal edema bilaterally Skin: Normal color, No rash Neurological: Alert, Oriented x3, Cranial nerves II-XII grossly intact, Normal Strength, Normal Sensation Psychological: Normal affect, Normal Mood, - - Anxious Diagnostic/Tx/Re-eval Chest X-Ray - ED: 1 View, Read by ED Physician, Read by Radiologist, CHF Clinical Impression(s) from Imaging Studies Chest X-Ray 11/08/19 09:40 IMPRESSION: Findings suggestive of a mild degree of CHF. Cardiomegaly. Electronically Signed: Omid Bansal, at 9:56 EDT , Service support , Laboratory Data 11/08/19 11/08/19 11/08/19 09:40 09:40 09:40 WBC 5.5 RBC 3.54 L Hgb 9.8 L Hct 32.3 L MCV 91.2 MCH 27.7 MCHC 30.3 L RDW Std Deviation 55.4 H RDW Coeff of Maty 16.6 H Plt Count 114 L MPV 12.4 H Immature Gran % (Auto) 0.500 Neut % (Auto) 63.5 Lymph % (Auto) 28.2 [place] % (Auto) 6.9 Eos % (Auto) 0.7 Baso % (Auto) 0.2 Absolute Neuts (auto) 3.5 Absolute Lymphs (auto) 1.56 Nucleated RBC % 0 PT INR Sodium 140 Potassium 3.7 Chloride 105 Carbon Dioxide 25.0 Anion Gap 10 BUN 11 Creatinine 0.95 Estim Creat Clear Calc 42.50 Est GFR (MDRD) Af Amer 73 Est GFR (MDRD) Non-Af 60 BUN/Creatinine Ratio 11.6 Glucose 129 H Lactic Acid 1.7 Calcium 8.8 Troponin I < 0.015 B-Natriuretic Peptide 11/08/19 11/08/19 09:40 09:40 WBC RBC Hgb Hct MCV MCH MCHC RDW Std Deviation RDW Coeff of Maty Plt Count MPV Immature Gran % (Auto) Neut % (Auto) Lymph % (Auto) [place] % (Auto) Eos % (Auto) Baso % (Auto) Absolute Neuts (auto) Absolute Lymphs (auto) Nucleated RBC % PT 35.6 H INR 3.5 H* Sodium Potassium Chloride Carbon Dioxide Anion Gap BUN Creatinine Estim Creat Clear Calc Est GFR (MDRD) Af Amer Est GFR (MDRD) Non-Af BUN/Creatinine Ratio Glucose Lactic Acid Calcium Troponin I B-Natriuretic Peptide 1531.8 H - Rhythm Strip Rhythm Strip: Sinus Rhythm Rate: 91 Ectopy: PVC(s) - EKG Initial EKG Interpretation: Sinus Rhythm, - - Sinus rhythm with fusion complexes and PVCs at a rate of 91 IL interval 182 QRS 132 QTc [address] segments - Medical Decision Making Patient is evaluated for worsening shortness of breath and chest pain for the past 3 to 4 days. She also notes she is had cough and increased swelling of her legs. Patient was 88% on room air when EMS arrived. She arrived the ER on 4 L. At the ER she is 94% at rest on room air. Patient's proBNP is significantly elevated. In addition her chest x-ray shows signs of pulmonary vascular congestion. Likely she has a CHF exacerbation that is causing her symptoms. Initially an infectious work-up is ordered as well as we are seeing a lot of respiratory illnesses however I believe her respiratory symptoms are solely cardiac and not infectious at this time. Patient is given IV Lasix 40 mg in the emergency room. Patient does have a mild anemia. This appears to be close to her baseline. She also has a mildly supratherapeutic INR. As her hemoglobin is stable I am not concerned for active bleed at this time. It is not so high that I think she requires any reversal at this time. She admitted to the PCU for further treatment and evaluation. Patient is hemodynamically stable in the emergency room and agreeable with this plan. ED Disposition - Plan for ED Patient: Diagnosis: Acute exacerbation of congestive heart failure, Chest pain, Supratherapeutic INR Referrals: Osiel Arzola MD [Primary Care Provider] -
[2019-11-08 10:13] LABS: Absolute Lymphocyte Count 1.56 X10^3/uL (0.83-4.51); Absolute Neutrophil Count 3.5 X10^3/uL (2.0-7.7); Basophil# 0.01 X10^3/uL; Basophil% 0.2 % (0-1); Eosinophil# 0.04 X10^3/uL; Eosinophils% 0.7 % (0-5); Hematocrit 32.3 % (37-47); Hemoglobin 9.8 g/dL (12.0-15.0); Lymphocyte # 1.56 X10^3/ul (4.0); Lymphocyte % 28.2 % (19-41); Mean Corp Hgb Conc 30.3 g/dL (32-36); Mean Corpuscular Hgb 27.7 pg (27.0-32.0); Mean Corpuscular Volume 91.2 fL (81-99); Mean Platelet Vol. 12.4 fl (6.2-12.0); Monocyte# 0.38 X10^3/uL; Monocyte% 6.9 % (0-10); NRBC Flagged by Analyzer 0 % (0-5); Neutrophil # 3.51 X10^3/uL (2.7-7.7); Neutrophil % 63.5 % (47-70); Platelet Count 114 K/mm3 (150-450); RBC Distribution Width CV 16.6 % (11.6-14.6); RBC Distribution Width SD 55.4 fl (35.1-43.9); Red Blood Count 3.54 M/mm3 (4.2-5.4); White Blood Count 5.5 K/mm3 (4.4-11.0)
[2019-11-08 10:17] LABS: Anion Gap 10 (5-15); BUN 11 mg/dL (7-18); BUN/Creat Ratio 11.6 RATIO (10-20); Calcium,Total 8.8 mg/dL (8.5-10.1); Chloride 105 mmol/L (98-107); Creatinine, Serum 0.95 mg/dL (0.55-1.02); EST Glomerular Filtration Rate 60 mL/min (>60); Est Glom Filt Rate - Afr Amer 73 mL/min (>60); Glucose 129 mg/dL (74-106); Potassium 3.7 mmol/L (3.5-5.1); Sodium Level 140 mmol/L (136-145)
[2019-11-08 10:22] LABS: Lactic Acid 1.7 mmol/L (0.4-1.9)
[2019-11-08 10:36] LABS: BNP,B-Type NATRIURETIC PEPTIDE 1531.8 pg/mL (0-100)
[2019-11-08 10:41] LABS: Prothrombin Time (Protime)PT. 35.6 SECONDS (11.7-14.9)
[2019-11-08 10:43] LABS: International Normalized Ratio 3.5
--- NOTE | 2019-11-08 10:53 | NURSING ---
DR GUPTA FOR DR HURTADO
--- NOTE | 2019-11-08 10:55 | NURSING ---
PCU CHF EX[facility] ASHELFA[facility]
[2019-11-08] MEDS: Furosemide 40 MG/4 ML Vial IV ×2 (11:30→17:17)
--- NOTE | 2019-11-08 11:31 | PCM.HP.STD ---
Problem List (1) Aortocoronary bypass status Status: Chronic Comment: CABG x6- Sequential SVG in Sequence to the LAD, Descending Diagonal, CX/CX, and RCA/RCA 10/09/02 (2) Atherosclerotic heart disease of [place] coronary artery without angina pectoris Status: Chronic Qualifiers: [place] vs. transplanted heart: [place] heart Qualified Code(s): I25.10 - Atherosclerotic heart disease of [place] coronary artery without angina pectoris (3) Benign hypertension Status: Chronic (4) Diabetes mellitus, type 2 Status: Chronic (5) Systolic CHF, chronic Status: Chronic (6) Ischemic cardiomyopathy Status: Chronic History of Present Illness Date of Admission: 11/08/19 Chief Complaint: Shortness of breath. The patient is a 78 year old F with past medical history as mentioned above presented to the emergency room because of shortness of breath. Headedness started 4 days ago with shortness of breath, both with activity and at rest, aggravated by any type of activity, associated with mild productive cough as well as leg swelling. She reported associated mild headache. She mentioned that she cannot sleep at night because of both shortness of breath and her back pain secondary to history of vertebral fractures. She complained of intermittent chest pain that has been going on for several months and she underwent work-up for it in the past. She denied fever or chills. She denied body aches or pains. She lives at home with her and daughter. No one sick at home and she has no recent travel inside or outside the country. In the emergency department, her blood pressure was slight elevated, mildly tachypnea, other vitals are stable. Pulse ox is maintained on room air. Routine blood work was remarkable for hemoglobin of 9.8 g/dL, platelet count of 114,000, otherwise normal. EKG revealed normal sinus rhythm, fusion complexes and PACs, no acute segment changes. Troponin was negative. BMP was 1531. Chest x-ray revealed cardiomegaly and bilateral pulmonary vascular congestion. INR was 3.5. Nasal swab for influenza a and B were negative. She is being admitted for acute on chronic systolic CHF. Past Medical History Past Medical History (Chronic Problems): Chronic Problems (Last Updated 11/08/19 @ 11:[address] Yanna Seymour MD) Primary osteoarthritis of left knee (Chronic) Compression fracture of T12 vertebra (Chronic) LBBB (left bundle branch block) (Chronic) Aortocoronary bypass status (Chronic ~10/09/02) CABG x6- Sequential SVG in Sequence to the LAD, Descending Diagonal, CX/CX, and RCA/RCA 10/09/02 Atherosclerotic heart disease of [place] coronary artery without angina pectoris (Chronic) Atherosclerosis of coronary artery bypass graft(s), unspecified, with other forms of angina pectoris (Chronic) CABG x6- Sequential SVG in Sequence to the LAD, Descending Diagonal, CX/CX, and RCA/RCA 10/09/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 Yanna Seymour MD) LBBB (left bundle branch block) (Chronic) I44.7 Atherosclerotic heart disease of [place] coronary artery without angina pectoris (Chronic) I25.10 Atherosclerosis of coronary artery bypass graft(s), unspecified, with other forms of angina pectoris (Chronic) I25.708 CABG x6- Sequential SVG in Sequence to the LAD, Descending Diagonal, CX/CX, and RCA/RCA 10/09/02 Benign hypertension (Chronic) I10 Obesity (Chronic) E66.9 Diabetes mellitus, type 2 (Chronic) E11.9 Systolic CHF, chronic (Chronic) I50.22 Thromboembolic disorder (Chronic) I74.9 Ischemic cardiomyopathy (Chronic) I25.5 Abnormal stress test R94.39 GERD (gastroesophageal reflux disease) K21.9 History of DVT (deep vein thrombosis) Z86.718 History of esophageal stricture Z87.19 History of pulmonary embolism Z86.711 Hyperlipidemia (Inactive) E78.5 Allergies doxycycline Allergy (Mild, Verified 11/08/19 09:36) Swelling Sulfa (Sulfonamide Antibiotics) Allergy (Verified 11/08/19 09:36) Rash tetracycline [Tetracycline] Allergy (Verified 11/08/19 09:36) Swelling dicyclomine Adverse Reaction (Verified 11/08/19 09:36) Other NSAIDS (Non-Steroidal Anti-Inflamma Adverse Reaction (Verified 11/08/19 09:36) Other Penicillins Adverse Reaction (Verified 11/08/19 09:36) Unknown Home Medications: Ambulatory Orders Medication Instructions Recorded Aspirin E.C. [Ecotrin] 81 mg PO DAILY@0800 03/08/17 Calcium Carbonate/Vitamin D3 1 ea PO BID 03/08/17 [Calcium 500-Vit D3 600 Caplet] Gabapentin [Neurontin] 600 mg PO 4X/DAY 03/08/17 Omeprazole [Prilosec] 20 mg PO BID 03/08/17 Cyanocobalamin [Vitamin B12] 500 mcg PO DAILY@0800 12/07/17 rosuvastatin 40 mg tablet 40 mg PO DAILY #90 tab 09/28/18 nitroglycerin 0.4 mg sublingual 0.4 mg SUBLINGUAL Q5-15M PRN #25 12/30/18 tablet tab Methocarbamol 500 mg PO TID PRN 02/27/19 Ubidecarenone [Coq-10] 100 mg PO DAILY 04/22/19 DiphenhydrAMINE [Benadryl] 25 mg PO QHS 05/28/19 Losartan Potassium 50 mg PO QDAY 05/28/19 Metoprolol(XL)Succ [Toprol Xl 100 mg PO DAILY 05/28/19 (Beta Jessica)] warfarin 1 mg tablet 1 mg PO DAILY 06/30/19 furosemide 40 mg tablet 20 mg PO DAILY #45 tab 08/18/19 Alendronate Sodium 70 mg PO QWEEK 09/17/19 isosorbide mononitrate 120 mg 120 mg PO DAILY #90 tab 10/10/19 tablet,extended release 24 hr Folic Acid 0.8 mg PO DAILY@0800 11/08/19 Warfarin [Coumadin] 3 mg PO DAILY 11/08/19 Surgical History: Surgical History (Last Reviewed 07/19/19 @ 09:46 by VERNA Best) Aortocoronary bypass status (Chronic) Onset Date: ~10/09/02 Z95.1 CABG x6- Sequential SVG in Sequence to the LAD, Descending Diagonal, CX/CX, and RCA/RCA 10/09/02 H/O arthroscopic knee surgery Z98.890 left knee 2000 History of partial knee replacement Z96.659 right History of total hysterectomy Z90.710 History of tubal ligation Z98.51 Hx of bilateral breast reduction surgery Z98.890 Hx of cholecystectomy Z90.49 Surgical History: appendectomy, cholecystectomy, coronary bypass surgery - 2003, hysterectomy, - - Breast reduction, right knee partial replacement, left knee repair, perforated bowel repair. kyphoplasty Psychiatric History: No pertinent psych hx DIRECTOR GRAPHICS History: No pertinent DIRECTOR GRAPHICS history Lives: Spouse/ Significant Other Smoking Status: Never smoker Tobacco Use: Non-smoker Alcohol: None Drugs: None - *Family History Maternal Family History: Family History (Last Reviewed 11/08/19 @ 11:[address] Yanna Seymour MD) Mother Myocardial infarction Hypertension Heart disease History of coronary artery bypass graft Brother Hypertension History of coronary artery bypass graft Father Cancer History Items: Heart Disease, Hypertension Paternal Family History: Family History (Last Reviewed 11/08/19 @ 11:[address] Yanna Seymour MD) Mother Myocardial infarction Hypertension Heart disease History of coronary artery bypass graft Brother Hypertension History of coronary artery bypass graft Father Cancer History Items: Cancer Review of Systems Constitutional: Reports: Weakness. Denies: Anorexia, Chills, Fever Eyes: Denies: Blurred vision, Double vision, Drainage, Redness HEENT: Denies: Difficulty Hearing, Ear Pain, Eye Pain, Nasal Congestion, Sore Throat Cardiovascular: Reports: Edema, Orthopnea. Denies: Light Headedness, Paroxysmal Noc. Dyspnea, Syncope Respiratory: Reports: Cough, Shortness of Breath, Shortness of breath at rest, Shortness of breath upon exertion, Sputum production. Denies: Wheezing Gastrointestinal: Reports: Constipation. Denies: Abdominal Pain, Diarrhea, Nausea, Vomiting Genitourinary: Denies: Dysuria, Frequency, Hematuria Musculoskeletal: Reports: Back Pain. Denies: Arm Pain, Foot Pain Skin: Denies: Dryness, Rash Neurological: Denies: Balance problems, Double vision, Change in Speech, Slurred speech, Confusion, Incoordination, Numbness Psychiatric: Denies: Anxiety, Depression VTE Information - Inpt Only VTE Present on Admission: No VTE Mechan Device Prophylaxis: None VTE Pharm Prophylaxis ordered?: No - Physical Exam Vitals/I&O's: Vital Signs Temp Pulse Resp BP Pulse Ox 98.6 F 92 15 156/97 H 93 11/08/19 10:57 11/08/19 10:57 11/08/19 10:57 11/08/19 10:57 11/08/19 10:57 Oxygen Delivery Method Room Air Weight: 235 lb 7.259 oz Body Mass Index (BMI) 39.2 General: Alert, Oriented x3, Cooperative, - - Moderately short of breath. HEENT: Atraumatic, PERRLA, EOMI, Normocephalic Oral: Moist Mucosa, No Gingival or Mucosal Lesions/ Ulcerations Neck: Supple, No JVD, Negative Carotid Bruits, Trachea Midline, Thyroid Normal Size and Texture Lungs: Normal air movement, No rhonchi, No wheeze, No rales, Diminished, Short of Breath, - - Decreased breath sounds bilateral, otherwise clear. Cardiovascular: Regular rate, Regular Rhythm, Normal S1, Normal S2, PMI Normal Abdomen: Bowel Sounds Present, Soft, Non Tender, Non-Distended, No Hepato-splenomegaly, Obese Extremities: No clubbing, No cyanosis, Edema - Nonpitting edema. Skin: No rashes, No breakdown Lymphatic: No Cervical, Supraclavicular, or Inguinal Adenopathy Neurological: Cranial nerves II-XII grossly intact, Motor Exam 5/5 strength throughout Psych/Mental Status: Normal Affect, Appropriate, Alert and oriented to time, place, person, mood and affect Microbiology Past 72 Hours 11/08/19 09:45 Mucosa - Nose Influenza Types A,B Direct FA (DEMETRIUS) - Final Laboratory Results 11/08/19 09:40: WBC 5.5, RBC 3.54 L, Hgb 9.8 L, Hct 32.3 L, MCV 91.2, MCH 27.7, MCHC 30.3 L, RDW Std Deviation 55.4 H, RDW Coeff of Maty 16.6 H, Plt Count 114 L, MPV 12.4 H, Immature Gran % (Auto) 0.500, Neut % (Auto) 63.5, Lymph % (Auto) 28.2, Stearns % (Auto) 6.9, Eos % (Auto) 0.7, Baso % (Auto) 0.2, Absolute Neuts (auto) 3.5, Absolute Lymphs (auto) 1.56, Nucleated RBC % 0 11/08/19 09:40: Sodium 140, Potassium 3.7, Chloride 105, Carbon Dioxide 25.0, Anion Gap 10, BUN 11, Creatinine 0.95, Estim Creat Clear Calc 42.50, Est GFR (MDRD) Af Amer 73, Est GFR (MDRD) Non-Af 60, BUN/Creatinine Ratio 11.6, Glucose 129 H, Calcium 8.8, Troponin I < 0.015 11/08/19 09:40: Lactic Acid 1.7 11/08/19 09:40: B-Natriuretic Peptide 1531.8 H 11/08/19 09:40: PT 35.6 H, INR 3.5 H* Clinical Impression(s) from Imaging Studies Chest X-Ray 11/08/19 09:40 IMPRESSION: Findings suggestive of a mild degree of CHF. Cardiomegaly. Electronically Signed: Omid Bansal, at 9:56 EDT , Service support , Assessment/Plan This is an 78 years old female patient presented to the emergency room because of shortness of breath and mild cough, found to have findings consistent with acute on chronic systolic CHF and she is being admitted for treatment. #1 acute on chronic systolic CHF: This is based on symptoms, chest x-ray findings, history of ischemic cardiomyopathy as well as elevated BNP. Patient denied recent travel or sick contacts around her. Nasal swab for other antibody negative. EKG revealed normal sinus rhythm, fusion complexes and PACs, no acute changes. Troponin is negative. BNP is elevated. She had 2D echocardiogram back on October, that revealed ejection fraction of 35%, mild arctic stenosis. Plan: Admit to PCU, cardiac monitoring, serial cardiac enzymes, fluid restriction to less than 1500 cc daily, IV Lasix for diuresis, 2D echocardiogram, input output chart, repeat BMP and CBC tomorrow morning, PT OT evaluation and treatment. #2 CAD status post CABG: EKG without acute chronic changes. Troponin is negative. Plan for cardiac monitoring, serial cardiac enzymes, continue aspirin, statins, nitrate, losartan and metoprolol. #3 chronic systolic CHF/ischemic cardiomyopathy: With acute exacerbation as above. Plan for IV Lasix for diuresis, continue Coreg and losartan, 2D echocardiogram as above. #4 hypertension: Blood pressure stable, continue nitrate, losartan and metoprolol, IV hydralazine PRN. #5 history of DVT/PE/thromboembolic disorder: INR is 3.5, supratherapeutic. Plan to hold Coumadin for tonight, repeat INR tomorrow morning. #6 history of type 2 diabetes mellitus: Currently, she is not taking any medication as hepatoid has been under control. Hemoglobin A1c was 6.2% on May,. Plan for the diet, Accu-Cheks q. CHS. #7 chronic back pain/chronic T12 vertebral compression fracture: Tylenol PRN, OxyIR PRN. #8 chronic anemia: Baseline hemoglobin has been around 10 to 12 g/dL. Admission hemoglobin is 9.6 g/dL. Patient denied any active bleeding from body orifices. Plan: Serum iron, TIBC, ferritin, B12, folate. #9 DVT prophylaxis: INR 3.5. This note was generated with DoubleUp dictation software. It may contain incorrect words, spelling, and punctuation that were not noted in checking the note before signing. Inpatient E&M: 58567 Init Hosp L3
--- NOTE | 2019-11-08 12:22 | ECHOD_ITS ---
Reason For Study: CHF Procedure This was a 2D Doppler, Color Flow transthoracic echocardiogram. Did not use Definity due to increased PAP. Exam performed portable in patient room. Left Ventricle Severely dilated left ventricle. The estimated ejection fraction is 15 %. Stage 2 diastolic dysfunction. Septal motion consistent with IVCD. There is severe global hypokinesis of the left ventricle. Right Ventricle Moderately dilated right ventricle. Moderate global right ventricular systolic dysfunction. Atria Normal left atrium. Normal right atrium. Normal atrial septum. Mitral Valve Mild diffuse mitral valve thickening. Moderate mitral annular calcification extending into the posterior leaflet. Mild (1+) mitral valve insufficiency. Tricuspid Valve Normal tricuspid valve. Severe (4+) tricuspid valve insufficiency. Right ventricular systolic pressure estimated to be 69 mmHg. Severe pulmonary hypertension. Aortic Valve Trisinus/trileaflet aortic valve. Moderate diffuse aortic valve thickening. Mild restriction of the aortic valve. Mild aortic stenosis. Pulmonic Valve The pulmonic valve is not well visualized. Great Vessels Calcified aortic root. Mild atherosclerosis of the aortic arch. The inferior vena cava is dilated. No collapse of the inferior vena cava. Pericardium/Pleural No pericardial effusion. MMode/2D Measurements & Calculations LVIDd: 5.4 cm IVSd: 1.0 cm LVOT diam: 2.0 cm LVIDs: 5.2 cm LVPWd: 1.0 cm LVOT area: 3.0 cm2 RVDd: 3.8 cm FS: 3.1 % Ao root diam: 2.5 cm LAV(MOD-bp): 44.9 ml LA A4 area: 17.1 cm2 LAV(MOD-bp) Indexed: 21.2 ml/m2 LAV(MOD-sp2): 45.4 ml LAV(MOD-sp4): 43.3 ml LA dimension(2D): 5.4 cm RA A4 area: 17.4 cm2 Doppler Measurements & Calculations MV E max pastor: 128.0 cm/sec Lat Peak E' Pastor: 8.6 cm/sec Med Peak E' Pastor: 7.6 cm/sec MV A max pastor: 97.4 cm/sec E/E' lat: 14.9 E/E' med: 16.9 MV E/A: 1.3 Ao V2 max: 230.5 cm/sec LV V1 max: 98.9 cm/sec SV(LVOT): 60.4 ml Ao max P.3 mmHg LV V1 max P.9 mmHg Ao V2 mean: 161.0 cm/sec LV V1 mean P.1 mmHg Ao mean P.6 mmHg LV V1 mean: 68.7 cm/sec Ao V2 VTI: 44.0 cm LV V1 VTI: 20.0 cm SRIKANTH(I,D): 1.4 cm2 SRIKANTH(V,D): 1.3 cm2 PA V2 max: 85.3 cm/sec TR max pastor: 401.0 cm/sec TR max P.3 mmHg Interpretation Summary Severely dilated left ventricle. The estimated ejection fraction is 15 %. Stage 2 diastolic dysfunction. There is severe global hypokinesis of the left ventricle. Moderately dilated right ventricle. Moderate global right ventricular systolic dysfunction. Mild (1+) mitral valve insufficiency. Severe (4+) tricuspid valve insufficiency. Right ventricular systolic pressure estimated to be 69 mmHg. Severe pulmonary hypertension. Mild aortic stenosis. The inferior vena cava is dilated Compared to echo report dated 01/27/2017, LV function has gone from 35% to 15%, and RVSP has increased from 32 to 69 mm Hg. Ordering Physician: Yanna Seymour Referring Physician: Osiel Arzola Performed By: Svitlana Gibbs RDCS, RVT
[2019-11-08 16:13] LABS: Ferritin 20 ng/mL (8-252); Iron 49 ug/dL (50-170); Iron Binding Capacity,Total 383 ug/dL (250-450); PERCENT IRON SATURATION 12.8 % (15.0-55.0)
[2019-11-08] MEDS: Gabapentin 600 MG Tablet PO ×2 (17:16→21:50)
[2019-11-08] MEDS: 0.9% Saline Lock 10 ML Syringe IV ×2 (17:17→21:51)
[2019-11-08 17:29] LABS: Vitamin B12 > 2000 pg/mL (211-911)
[2019-11-08] MEDS: oxyCODONE 5 MG Tablet PO (17:31)
[2019-11-08 17:40] LABS: Bedside Glucose 113 mg/dL (70-110)
[2019-11-08] MEDS: Atorvastatin Calcium 80 MG Tablet PO (21:50)
[2019-11-08] MEDS: DiphenhydrAMINE 25 MG Capsule PO (21:50)
[2019-11-08] MEDS: Pantoprazole Sodium 20 MG Tablet PO (21:51)
[2019-11-08 22:26] LABS: Bedside Glucose 103 mg/dL (70-110)
[2019-11-09] VITALS (13 sets, daily range): BP systolic 95–123; BP diastolic 41–56; PULSE 74–88; RESP 18–20; TEMP 36.4–37.2; O2SAT 86–96
[2019-11-09 05:55] LABS: Absolute Lymphocyte Count 1.91 X10^3/uL (0.83-4.51); Absolute Neutrophil Count 2.3 X10^3/uL (2.0-7.7); Basophil# 0.01 X10^3/uL; Basophil% 0.2 % (0-1); Eosinophil# 0.06 X10^3/uL; Eosinophils% 1.3 % (0-5); Hematocrit 30.2 % (37-47); Hemoglobin 9.1 g/dL (12.0-15.0); Lymphocyte # 1.91 X10^3/ul (4.0); Lymphocyte % 40.6 % (19-41); Mean Corp Hgb Conc 30.1 g/dL (32-36); Mean Corpuscular Hgb 27.8 pg (27.0-32.0); Mean Corpuscular Volume 92.4 fL (81-99); Mean Platelet Vol. 12.5 fl (6.2-12.0); Monocyte# 0.45 X10^3/uL; Monocyte% 9.6 % (0-10); NRBC Flagged by Analyzer 0 % (0-5); Neutrophil # 2.26 X10^3/uL (2.7-7.7); Neutrophil % 47.9 % (47-70); Platelet Count 103 K/mm3 (150-450); RBC Distribution Width CV 16.8 % (11.6-14.6); Red Blood Count 3.27 M/mm3 (4.2-5.4); White Blood Count 4.7 K/mm3 (4.4-11.0)
[2019-11-09 06:01] LABS: International Normalized Ratio 3.2; Prothrombin Time (Protime)PT. 32.8 SECONDS (11.7-14.9)
[2019-11-09 06:19] LABS: Anion Gap 9 (5-15); BUN 12 mg/dL (7-18); BUN/Creat Ratio 12.5 RATIO (10-20); Calcium,Total 8.4 mg/dL (8.5-10.1); Chloride 105 mmol/L (98-107); Creatinine, Serum 0.96 mg/dL (0.55-1.02); EST Glomerular Filtration Rate 59 mL/min (>60); Est Glom Filt Rate - Afr Amer 72 mL/min (>60); Estimated Creatinine Clearance 40.36 ml/min; Glucose 89 mg/dL (74-106); Potassium 3.7 mmol/L (3.5-5.1); Sodium Level 141 mmol/L (136-145)
[2019-11-09 07:16] LABS: Bedside Glucose 83 mg/dL (70-110)
[2019-11-09] MEDS: Losartan Potassium 50 MG Tablet PO (09:21)
[2019-11-09] MEDS: oxyCODONE 5 MG Tablet PO ×2 (09:21→16:10)
[2019-11-09] MEDS: Metoprolol(XL)Succ 100 MG Tablet PO (09:21)
[2019-11-09] MEDS: Gabapentin 600 MG Tablet PO ×4 (09:21→21:56)
[2019-11-09] MEDS: 0.9% Saline Lock 10 ML Syringe IV ×2 (09:21→17:53)
[2019-11-09] MEDS: Furosemide 40 MG/4 ML Vial IV ×2 (09:21→17:53)
[2019-11-09] MEDS: Pantoprazole Sodium 20 MG Tablet PO ×2 (09:21→21:56)
[2019-11-09] MEDS: Folic Acid 1 MG Tablet PO (09:21)
[2019-11-09] MEDS: Aspirin E.C. 81 MG Tablet PO (09:21)
--- NOTE | 2019-11-09 11:09 | CASEMGMT ---
RN CM Assessment Note Presentation: CHF. Intro role of CM and purpose of RN CM assessment to patient. Demographics, PCP and Pharmacy verified. Pt states she lives @ home with her . Is generally independent, but he is able to assist with care needs. Pt did request [facility] nurse to come to home. States has [facility] nurse through [facility]. Possible need for home oxygen. Discussed DME provider list. Pt requested [facility] if home oxygen is needed. Per Dr. Jones, will keep pt one more day for diuresis and will need retested tomorrow. PCP: Dr. Arzola Preferred Pharmacy: [facility] Pharmacy Insurance: [facility] [employer] Prescription Benefit: yes LNOK : , everardo Richards Living Arrangements: Lives in one story home with her . Independent, but sometimes needs to assist with care needs. Transportation: Family drives DME: walker, wheelchair. [facility] is home oxygen is needed and pt would like small portable tanks if possible. HHC: none in past. Pt would like [facility] Referral made to Intake - referral faxed and message left on secure voicemail re: clinical was faxed. Patient DC goals: Home DC PLAN: Home with C RN/PT OT. Will need home oxygen rechecked prior to dc.RN CM advised to contact cm for any concerns/needs that may arise.
[2019-11-09 11:31] LABS: Bedside Glucose 123 mg/dL (70-110)
--- NOTE | 2019-11-09 14:04 | CASEMGMT ---
RN Note: participated in interdisciplinary rounds. Pt to have repeat oxygen testing. If oxygen not needed, can dc home per physician. If O2 needed, will remain tonight and retested in am. -Call to [facility]. They can take referral and plan start of care for 11.11.2019 [place] HIGHTOWERN RN AC
--- NOTE | 2019-11-09 14:40 | CASEMGMT ---
Social Work Palliative Screening tool completed with pt score of 3. Pt not appropriate for palliative at this time but will monitor and if condition deteriorates, will reassess. EVIE Abebe
--- NOTE | 2019-11-09 15:37 | PCM.PROGNOTE ---
Subjective: Patient was seen and examined today, she remains on room air at rest, she does require oxygen at 2 L when ambulating. She denies any chest pain. She is concerned about swelling in her lower extremities. I discussed her care with her forest ranger technician Dr. Patricia today, it appears she has 1 coronary artery open per her last cardiac catheterization in 2017. Echocardiogram showed her EF to be low at 15%. Patient also has evidence of pulmonary hypertension and tricuspid regurg. Cardiology feels that the patient would be a poor candidate for having a repeat cardiac catheterization here due to the fact that if the intervention failed, her only patent coronary artery would be blocked off. I discussed this with the patient today at length. - Physical Exam Vitals/I&O's: Vital Signs Temp Pulse Resp BP Pulse Ox 97.5 F L 83 18 107/56 L 93 11/09/19 15:10 11/09/19 15:10 11/09/19 15:10 11/09/19 15:10 11/09/19 15:10 Oxygen Flow Rate (L/min) [ 2 AMBULATION with Oxygen] Oxygen Delivery Method Room Air Weight: 99.1 kg Body Mass Index (BMI) 37.7 Intake and Output for Last 24 Hours 11/07/19 11/08/19 11/09/19 23:59 23:59 23:59 Intake Total 440 / 440 340 / 340 Output Total 1950 / 1950 400 / 400 Balance -1510 / -1510 -60 / -60 General: Alert, Oriented x3, Cooperative, No apparent distress, Well developed, Well nourished HEENT: Atraumatic, PERRLA, EOMI, Normocephalic Oral: Moist Mucosa Neck: Supple, No JVD, Trachea Midline, Thyroid Normal Size and Texture Lungs: Normal air movement, Rales - Fine rales at the bases on inspiration Cardiovascular: Regular rate, Regular Rhythm, Normal S1, Normal S2, PMI Normal, Murmur - 2/6 systolic murmur is noted at the left sternal border, No rub noted Abdomen: Bowel Sounds Present, Soft, Non Tender, Non-Distended Extremities: No clubbing, Capillary Refill Less than 3 Seconds, Edema - Generalized edema is noted of the lower legs Skin: No rashes, No breakdown Musculoskeletal: No Tenderness to Palpation of Joints or Extremities, No Muscle Wasting Neurological: Cranial nerves II-XII grossly intact, Neuro grossly intact, Sensory exam intact to light touch and pain, Coordination normal Psych/Mental Status: Normal Affect, Appropriate, Alert and oriented to time, place, person, mood and affect Microbiology Past 72 Hours 11/08/19 09:45 Mucosa - Nose Influenza Types A,B Direct FA (DEMETRIUS) - Final Laboratory Results 11/08/19 15:45: Iron 49 L, TIBC 383, Iron Saturation 12.8 L, Ferritin 20, Troponin I 0.026 11/08/19 15:45: Vitamin B12 > 2000 H 11/08/19 15:45: RBC Folate Hemolysate Pending, RBC Folate Pending, Hematocrit Pending 11/08/19 17:33: POC Glucose 113 H 11/08/19 21:57: POC Glucose 103 11/09/19 05:34: Sodium 141, Potassium 3.7, Chloride 105, Carbon Dioxide 27.0, Anion Gap 9, BUN 12, Creatinine 0.96, Estim Creat Clear Calc 40.36, Est GFR (MDRD) Af Amer 72, Est GFR (MDRD) Non-Af 59 L, BUN/Creatinine Ratio 12.5, Glucose 89, Calcium 8.4 L 11/09/19 05:34: WBC 4.7, RBC 3.27 L, Hgb 9.1 L, Hct 30.2 L, MCV 92.4, MCH 27.8, MCHC 30.1 L, RDW Std Deviation 56.0 H, RDW Coeff of Maty 16.8 H, Plt Count 103 L, MPV 12.5 H, Immature Gran % (Auto) 0.400, Neut % (Auto) 47.9, Lymph % (Auto) 40.6, [place] % (Auto) 9.6, Eos % (Auto) 1.3, Baso % (Auto) 0.2, Absolute Neuts (auto) 2.3, Absolute Lymphs (auto) 1.91, Nucleated RBC % 0 11/09/19 05:34: PT 32.8 H, INR 3.2 11/09/19 07:01: POC Glucose 83 11/09/19 11:26: POC Glucose 123 H Current Medications Acetaminophen (Tylenol) 650 mg PO Q6H PRN PRN PRN Reason: Pain Score 1-10/Temp > 100.7 F Aspirin (Ecotrin) 81 mg PO DAILY@0800 ILYA Last Admin: 11/09/19 09:21 Dose: 81 mg Documented by: Atorvastatin Calcium (Lipitor) 80 mg PO QHS [facility] Last Admin: 11/08/19 21:50 Dose: 80 mg Documented by: Dextrose (D50w Syringe) 0 gm IV X1 PRN; Protocol PRN Reason: Hypoglycemia Diphenhydramine HCl (Benadryl) 25 mg PO QHS [facility] Last Admin: 11/08/19 21:50 Dose: 25 mg Documented by: Folic Acid (Folic Acid) 1 mg PO DAILY@0800 [facility] Last Admin: 11/09/19 09:21 Dose: 1 mg Documented by: Furosemide (Lasix) 40 mg IV BID@1000,1800 [facility] Last Admin: 11/09/19 09:21 Dose: 40 mg Documented by: Gabapentin (Neurontin) 600 [facility] Last Admin: 11/09/19 12:33 Dose: 600 mg Documented by: Glucagon () 1 mg IM .X1 PRN PRN Reason: Hypoglycemia Isosorbide Mononitrate (Imdur) 120 mg PO DAILY [facility] Last Admin: 11/09/19 09:21 Dose: 120 mg Documented by: Losartan Potassium (Cozaar) 50 mg PO DAILY [facility] Last Admin: 11/09/19 09:21 Dose: 50 mg Documented by: Methocarbamol (Robaxin) 500 mg PO TID PRN PRN Reason: muscle spasm Metolazone (Zaroxolyn) 5 mg PO X1 ONE Stop: 11/09/19 15:03 Metoprolol Succinate (Toprol Xl (Beta Jessica)) 100 mg PO DAILY [facility] Last Admin: 11/09/19 09:21 Dose: 100 mg Documented by: Ondansetron HCl (Zofran) 4 mg IV Q8H PRN PRN PRN Reason: NAUSEA/VOMITING Oxycodone HCl (Oxyir) 5 mg PO Q6H PRN PRN PRN Reason: Pain Score 6-10/10 Last Admin: 11/09/19 09:21 Dose: 5 mg Documented by: Pantoprazole Sodium (Protonix) 20 mg PO BID [facility] Last Admin: 11/09/19 09:21 Dose: 20 mg Documented by: Potassium Chloride (K-Dur) 20 meq PO X1 ONE Stop: 11/09/19 15:04 Potassium Chloride (K-Dur) 20 meq PO DAILYCM ILYA Senna/Docusate Sodium (Senokot-S, Alejandra-Colace) 2 tablet PO BID PRN PRN PRN Reason: Constipation Sodium Chloride () 10 - 40 ml IV UD PRN PRN Reason: SALINE FLUSH Last Admin: 11/09/19 09:21 Dose: 10 ml Documented by: Zolpidem Tartrate (Ambien (Generic)) 5 mg PO QHS PRN PRN PRN Reason: INSOMNIA Medical Necessity - Tobacco Use Smoking Status: Never smoker Tobacco Use: Non-smoker Assessment/Plan #1 acute on chronic systolic congestive heart failure-EF 15%, patient will remain on IV Lasix for now, I gave the patient 1 dose of Zaroxolyn today, I will check her oxygenation tomorrow to determine whether she would need home O2-at this time patient's oxygenation is low on ambulation but normal at rest. #2 coronary artery disease-I discussed her care with cardiology today, it would not seem feasible for the patient to undergo any cardiac catheterization at this time unless she has further difficulties, patient appears to be improving with IV diuretics. #3 ischemic cardiomyopathy #4 type 2 diabetes #5 essential hypertension #6 hyperlipidemia #7 severe pulmonary hypertension #8 severe tricuspid regurg-patient would be at high risk for tricuspid valve repair due to her coronary artery disease. Inpatient E&M: 74711 [facility] L2
[2019-11-09] MEDS: metOLazone 5 MG Tablet PO (16:10)
[2019-11-09 16:31] LABS: Bedside Glucose 104 mg/dL (70-110)
[2019-11-09] MEDS: DiphenhydrAMINE 25 MG Capsule PO (21:56)
[2019-11-09] MEDS: Atorvastatin Calcium 80 MG Tablet PO (21:56)
[2019-11-09] MEDS: Acetaminophen 325 MG Tablet 650 MG PO (21:57)
[2019-11-09 23:05] LABS: Bedside Glucose 113 mg/dL (70-110)
[2019-11-10] VITALS (8 sets, daily range): BP systolic 108–109; BP diastolic 51–66; PULSE 66–76; RESP 16–18; TEMP 36.4–36.5; O2SAT 83–97
[2019-11-10 05:45] LABS: Anion Gap 8 (5-15); BUN 27 mg/dL (7-18); Chloride 102 mmol/L (98-107); EST Glomerular Filtration Rate 35 mL/min (>60); Est Glom Filt Rate - Afr Amer 43 mL/min (>60); Estimated Creatinine Clearance 26.92 ml/min; Glucose 97 mg/dL (74-106); Potassium 3.7 mmol/L (3.5-5.1); Sodium Level 139 mmol/L (136-145)
[2019-11-10] MEDS: Pantoprazole Sodium 20 MG Tablet PO (08:56)
[2019-11-10] MEDS: Gabapentin 600 MG Tablet PO ×2 (08:56→11:32)
[2019-11-10] MEDS: Folic Acid 1 MG Tablet PO (08:56)
[2019-11-10] MEDS: 0.9% Saline Lock 10 ML Syringe IV (08:56)
[2019-11-10] MEDS: oxyCODONE 5 MG Tablet PO (08:56)
[2019-11-10] MEDS: Aspirin E.C. 81 MG Tablet PO (08:56)
[2019-11-10] MEDS: Metoprolol(XL)Succ 100 MG Tablet PO (08:56)
[2019-11-10] MEDS: Losartan Potassium 50 MG Tablet PO (08:56)
--- NOTE | 2019-11-10 10:45 | PCM.HOSP.N ---
Hospitalist Note Patient was seen and examined today, her pulse ox on room air at rest was 97%, on ambulation on room air her pulse ox was 83%. Patient was ambulated on 3 L of oxygen and her pulse ox was 95%. Patient will need home oxygen set up, she is expected to use it on exertion and she is expected to use it out outside activities when she is away from her house. Her main diagnosis for the oxygen is pulmonary hypertension and congestive heart failure with ischemic cardiomyopathy.
--- NOTE | 2019-11-10 10:48 | RAD_ITS ---
STUDY: X-RAY CHEST REASON FOR EXAM: Female, 78 years old. CHF TECHNIQUE: PA and lateral views of the chest. COMPARISON: Comparison is made with prior examination of November 08, 2019. FINDINGS: EKG electrodes are seen. Minimal residual vascular congestion. Minimal residual increased interstitial markings suggesting mild degree of CHF although there has been some improvement as compared to prior study. There is no demonstrated pleural abnormality. Sternal cerclage wires and vascular clips are present from a prior sternotomy and coronary artery bypass graft procedure (CABG). Normal mediastinum and pranay. Normal visualized pulmonary arteries. There is atherosclerotic calcification of the aortic arch with tortuosity. There is demineralization of the osseous structures. Evidence of prior vertebroplasty in the lower thoracic vertebrae with a complete loss of height of the vertebrae. Normal visualized ribs, clavicles, and shoulders. The patient is status post cholecystectomy. RAD/Chest PA and Lateral IMPRESSION: Mild residual vascular congestion although there has been improvement as compared to prior study. Electronically Signed: Omid Bansal, at 11:24 EDT , Service support ,
--- NOTE | 2019-11-10 11:25 | PCM.DC ---
You will use the following diet at home:: No restrictions Your food should be the consistency of: Regular Your liquids should be the consistency of: Regular/Thin Discharge Activity: Return to Normal Activity Weight Bearing Status: Full weight bearing Additional Instructions: Use oxygen when ambulating at 3 liters/min. Get your BMP rechecked in 7-10 days Allergies/Adverse Reactions: Allergies doxycycline Allergy (Mild, Verified 11/08/19 09:36) Swelling Sulfa (Sulfonamide Antibiotics) Allergy (Verified 11/08/19 09:36) Rash tetracycline [Tetracycline] Allergy (Verified 11/08/19 09:36) Swelling dicyclomine Adverse Reaction (Verified 11/08/19 09:36) Other NSAIDS (Non-Steroidal Anti-Inflamma Adverse Reaction (Verified 11/08/19 09:36) Other Penicillins Adverse Reaction (Verified 11/08/19 09:36) Unknown Medications to take at Discharge Aspirin E.C. [Ecotrin] 81 mg PO DAILY@0800 03/08/17 Calcium Carbonate/Vitamin D3 [Calcium 500-Vit D3 600 Caplet] 1 ea PO BID 03/08/17 Gabapentin [Neurontin] 600 mg PO 4X/DAY 03/08/17 Omeprazole [Prilosec] 20 mg PO BID 03/08/17 Cyanocobalamin [Vitamin B12] 500 mcg PO DAILY@0800 12/07/17 rosuvastatin 40 mg tablet 40 mg PO DAILY #90 tab 09/28/18 nitroglycerin 0.4 mg sublingual tablet 0.4 mg SUBLINGUAL Q5-15M PRN #25 tab 12/30/18 Methocarbamol 500 mg PO TID PRN 02/27/19 Ubidecarenone [Coq-10] 100 mg PO DAILY 04/22/19 DiphenhydrAMINE [Benadryl] 25 mg PO QHS 05/28/19 Losartan Potassium 50 mg PO QDAY 05/28/19 warfarin 1 mg tablet 1 mg PO DAILY 06/30/19 Alendronate Sodium 70 mg PO QWEEK 09/17/19 isosorbide mononitrate 120 mg tablet,extended release 24 hr 120 mg PO DAILY #90 tab 10/10/19 Folic Acid 0.8 mg PO DAILY@0800 11/08/19 Warfarin [Coumadin] 3 mg PO DAILY 11/08/19 metoprolol succinate 100 mg tablet,extended release 24 hr 100 mg PO DAILY #90 tab 11/09/19 Furosemide [Lasix] 60 mg PO DAILY #90 tab 11/10/19 Hydrocodone/Acetaminophen [[place] 5-325 Tablet] 1 each PO Q6H PRN PRN 7 Days #28 tablet 11/10/19 Metoprolol(XL)Succ [Toprol Xl (Beta Jessica)] 100 mg PO DAILY tab 11/10/19 Potassium Chloride [K-Dur] 20 meq PO DAILYCM #30 tab 11/10/19 The following prescriptions were given: Potassium Chloride [K-Dur] 20 meq PO DAILYCM #30 tab Transmission Status: Pending to [id number] Furosemide [Lasix] 60 mg PO DAILY #90 tab Transmission Status: Pending to [id number] Hydrocodone/Acetaminophen [[place] 5-325 Tablet] 1 each PO Q6H PRN PRN 7 Days #28 tablet PRN Reason: Pain Score 1-10/10 Transmission Status: Received by [id number] Primary Care Physician: Osiel Arzola MD [Primary Care Provider] - Test Results: Test results from this visit will be discussed in further detail at your follow-up appointment, if applicable. Please Follow Up With: Osiel Arzola MD Please Follow Up With: Gallo Patricia MD When: in 3 weeks
[2019-11-10 11:41] LABS: Bedside Glucose 115 mg/dL (70-110)
--- NOTE | 2019-11-10 12:32 | CASEMGMT ---
RN CM Note. OXygen testing completed. Spoke with pt re: need for home oxygen. Oxygen for home ordered through [employer]. Portable tank delivered. Home Health through [place] updated on dc today and DC instructions faxed to then @ . [place] [facility] RN AC
--- NOTE | 2019-11-10 13:57 | PCM.DC.SUM ---
Discharge Date and Diagnosis Date of Admission: 11/08/19 Date of Discharge: 11/10/19 - Primary Discharge Diagnosis #1 acute on chronic systolic congestive heart failure-EF 15% #2 coronary artery disease #3 ischemic cardiomyopathy #4 type 2 diabetes #5 essential hypertension #6 hyperlipidemia #7 severe pulmonary hypertension #8 severe tricuspid regurgitation #9 hypoxia secondary to pulmonary hypertension and systolic congestive heart failure - Secondary Discharge Diagnosis Chronic Problems (Last Updated 11/08/19 @ 11:[address] Yanna Seymour MD) Primary osteoarthritis of left knee (Chronic) Compression fracture of T12 vertebra (Chronic) LBBB (left bundle branch block) (Chronic) Aortocoronary bypass status (Chronic ~10/09/02) CABG x6- Sequential SVG in Sequence to the LAD, Descending Diagonal, CX/CX, and RCA/RCA 10/09/02 Atherosclerotic heart disease of [place] coronary artery without angina pectoris (Chronic) Atherosclerosis of coronary artery bypass graft(s), unspecified, with other forms of angina pectoris (Chronic) CABG x6- Sequential SVG in Sequence to the LAD, Descending Diagonal, CX/CX, and RCA/RCA 10/09/02 prison current use of anticoagulant (Chronic) Benign hypertension (Chronic) Obesity (Chronic) Diabetes mellitus, type 2 (Chronic) Systolic CHF, chronic (Chronic) Thromboembolic disorder (Chronic) Ischemic cardiomyopathy (Chronic) Hospital Course and Treatment Imaging Results: 11/10/19 10:48 Chest PA and Lateral [RAD] Stat Operations: None Procedures: 2-D Echocardiogram Summary of Care Provided: The patient is a 78 year old F was seen in the emergency room at [facility] with a chief complaint of shortness of breath x3 days. Patient was unsure whether she had had a fever. Patient was noted to have an oxygen saturation of 88% on room air when she was picked up by squad to go to the emergency room. Examination in the emergency room included a chest x-ray which showed evidence of congestive heart failure, EKG showed a sinus rhythm at a rate of 91, patient's beta natruretic peptide was elevated, patient was noted to have mild anemia on her CBC. Patient was given IV Lasix in the emergency room, she was admitted to PCU for acute on chronic systolic congestive heart failure, echocardiogram was obtained which showed evidence of an ejection fraction of 15% and evidence of severe pulmonary hypertension and severe tricuspid regurg. I discussed her care with her space control supervisor (Dr. Patricia) and he felt that at this time medical treatment should be tried for stabilization and the patient should not undergo a cardiac catheterization-previous cardiac catheterization showed that she was only perfusing her heart with 1 patent artery. Patient was treated with IV Lasix and repeat chest x-rays showed persistent congestive heart failure but the patient was clinically improved. Patient was found to require supplemental oxygen on ambulation as her pulse ox was 83% on room air during ambulation, at rest her pulse ox was 97% on room air, with ambulation on oxygen her pulse ox was noted to be 95% on 3 L. On 11/10/2019, patient was seen and examined: On examination she appeared in good health and spirits, she does not appear to be in any distress. Vital signs as documented. Skin warm and dry and without overt rashes. Neck without JVD, thyroid appears normal, trachea is midline, neck is supple. Lungs clear, normal air movement was noted. Heart exam notable for regular rhythm, normal sounds and absence of murmurs, rubs or gallops. Abdomen unremarkable and without evidence of organomegaly, masses, or abdominal aortic enlargement, bowel sounds are present in all 4 quadrants, no abdominal tenderness was noted. Extremities nonedematous, no cyanosis was noted, no clubbing was noted. Neuro: Cranial nerves II through XII are grossly intact, no focal motor deficits were noted, sensation to light touch and pinprick is intact, motor exam 5/5 throughout. Psych: Patient is alert and oriented x3, she does not appear anxious or depressed, she does not appear agitated. Patient appears stable for discharge on 11/10/2019, she was set up with home oxygen and expected to use it when ambulating and outside the home when ambulating. - Physical Exam Vitals/I&O's: Vital Signs Temp Pulse Resp BP Pulse Ox 97.7 F L 76 18 109/66 97 11/10/19 08:55 11/10/19 08:56 11/10/19 08:55 11/10/19 08:55 11/10/19 10:02 Oxygen Flow Rate (L/min) [ 3 AMBULATION with Oxygen] Oxygen Delivery Method Room Air Weight: 100.7 kg Body Mass Index (BMI) 37.7 Intake and Output for Last 24 Hours 11/08/19 11/09/19 11/10/19 23:59 23:59 23:59 Intake Total 440 / 440 1230 / 1230 250 / 250 Output Total 1950 / 1950 800 / 800 400 / 400 Balance -1510 / -1510 430 / 430 -150 / -150 Microbiology Past 72 Hours 11/08/19 09:43 Blood Culture (Wb) #2 - Right Hand Blood Culture - Preliminary No growth in 48 hours. 11/08/19 09:40 Blood Culture (Wb) - Anticubital Right Blood Culture - Preliminary No growth in 48 hours. 11/08/19 09:45 Mucosa - Nose Influenza Types A,B Direct FA (DEMETRIUS) - Final Laboratory Results 11/09/19 16:14: POC Glucose 104 11/09/19 21:47: POC Glucose 113 H 11/10/19 05:20: Sodium 139, Potassium 3.7, Chloride 102, Carbon Dioxide 29.0, Anion Gap 8, BUN 27 H, Creatinine 1.50 H, Estim Creat Clear Calc 26.92, Est GFR (MDRD) Af Amer 43 L, Est GFR (MDRD) Non-Af 35 L, BUN/Creatinine Ratio 18.0, Glucose 97, Calcium 8.0 L 11/10/19 11:31: POC Glucose 115 H Discharge Activity: Return to Normal Activity Weight Bearing Status: Full weight bearing Home Medications: Medications to take at Discharge Aspirin E.C. [Ecotrin] 81 mg PO DAILY@0800 03/08/17 Calcium Carbonate/Vitamin D3 [Calcium 500-Vit D3 600 Caplet] 1 ea PO BID 03/08/17 Gabapentin [Neurontin] 600 mg PO 4X/DAY 03/08/17 Omeprazole [Prilosec] 20 mg PO BID 03/08/17 Cyanocobalamin [Vitamin B12] 500 mcg PO DAILY@0800 12/07/17 rosuvastatin 40 mg tablet 40 mg PO DAILY #90 tab 09/28/18 nitroglycerin 0.4 mg sublingual tablet 0.4 mg SUBLINGUAL Q5-15M PRN #25 tab 12/30/18 Methocarbamol 500 mg PO TID PRN 02/27/19 Ubidecarenone [Coq-10] 100 mg PO DAILY 04/22/19 DiphenhydrAMINE [Benadryl] 25 mg PO QHS 05/28/19 Losartan Potassium 50 mg PO QDAY 05/28/19 warfarin 1 mg tablet 1 mg PO DAILY 06/30/19 Alendronate Sodium 70 mg PO QWEEK 09/17/19 isosorbide mononitrate 120 mg tablet,extended release 24 hr 120 mg PO DAILY #90 tab 10/10/19 Folic Acid 0.8 mg PO DAILY@0800 11/08/19 Warfarin [Coumadin] 3 mg PO DAILY 11/08/19 metoprolol succinate 100 mg tablet,extended release 24 hr 100 mg PO DAILY #90 tab 11/09/19 Furosemide [Lasix] 60 mg PO DAILY #90 tab 11/10/19 Hydrocodone/Acetaminophen [[place] 5-325 Tablet] 1 ea PO Q6H PRN PRN 7 Days #28 tab 11/10/19 Metoprolol(XL)Succ [Toprol Xl (Beta Jessica)] 100 mg PO DAILY tab 11/10/19 Potassium Chloride [K-Dur] 20 meq PO DAILYCM #30 tab 11/10/19 Following Prescrptions Were Given to Patient: Potassium Chloride [K-Dur] 20 meq PO DAILYCM #30 tab Transmission Status: [id number] Furosemide [Lasix] 60 mg PO DAILY #90 tab Transmission Status: Re[facility] by [id number] Hydrocodone/Acetaminophen [[place] 5-325 Tablet] 1 ea PO Q6H PRN PRN 7 Days #28 tab PRN Reason: Pain Score 1-10/10 Transmission Status: [id number] Primary Care Physician: Osiel Arzola MD [Primary Care Provider] - Please Follow Up With: Osiel Arzola MD Please Follow Up With: Bre Marinelli PA When: in 3 weeks Disposition: Home with Home Health Minutes spent on discharge:: 32 Patient Condition:: Stable Medical Necessity - Tobacco Use Smoking Status: Never smoker Tobacco Use: Non-smoker Meaningful Use Info Meaningful Use Diagnoses (Choose all that apply): CHF - CHF WILDA/ARB ordered at discharge?: Yes Documented LVEF (%): 15 Inpatient E&M: [id number] Disch Hosp
[2019-11-10 14:07] LABS: Folate, RBC (Hct) Test 31.7 % (34.0-46.6)
[2019-11-10 16:26] LABS: Folates, RBC Test 1886 ng/mL (>498)
--- NOTE | 2019-11-11 15:36 | CM.UR ---
[facility]IR[facility] CM Discharge F/U Phone Call LACE: 14 Strata: 4 Discharge date: 11/10/19 Call date: 11/11/2019 Call time: 15:36 Admission dx: Acute on Chronic CHF Spoke with patient's daughter who lives with her and helps care of patient. Denies any symptoms, complaints or pain. [facility] nurse was there today and went over all discharge instructions in detail. Denies questions about dc instructions. Denies questions about medications. Confirmed follow up appts. Denied having any suggestions for improvement for [facility]. Kaylie Mora RN, CCM
== END 2019-11-10 13:31 | disposition home or self-care (01) | DRG 292 ==
LOC: ED 10:58 → PCU 11:34
PROVIDERS: Admitting Provider Hospitalist; Emergency Provider Emergency Medicine; PCP Family Medicine; Referring Provider Hospitalist; Visit Provider Internal Medicine
DX: I11.0 Hypertensive heart disease with heart failure (principal); I25.718 Atherosclerosis of autologous vein coronary artery bypass graft(s) with other forms of angina pectoris; I50.23 Acute on chronic systolic (congestive) heart failure; I25.10 Atherosclerotic heart disease of native coronary artery without angina pectoris; Z95.1 Presence of aortocoronary bypass graft; E11.9 Type 2 diabetes mellitus without complications; I25.5 Ischemic cardiomyopathy; K21.9 Gastro-esophageal reflux disease without esophagitis; R09.02 Hypoxemia; M17.12 Unilateral primary osteoarthritis, left knee; R79.1 Abnormal coagulation profile; Z86.718 Personal history of other venous thrombosis and embolism; Z87.19 Personal history of other diseases of the digestive system; Z86.711 Personal history of pulmonary embolism; Z79.82 Long term (current) use of aspirin; I07.1 Rheumatic tricuspid insufficiency; I27.20 Pulmonary hypertension, unspecified; D64.9 Anemia, unspecified; E66.9 Obesity, unspecified; I44.7 Left bundle-branch block, unspecified; E78.5 Hyperlipidemia, unspecified; Z96.659 Presence of unspecified artificial knee joint; Z68.39 Body mass index [BMI] 39.0-39.9, adult; Z79.01 Long term (current) use of anticoagulants; Z82.49 Family history of ischemic heart disease and other diseases of the circulatory system; Z90.49 Acquired absence of other specified parts of digestive tract; Z90.710 Acquired absence of both cervix and uterus; Z98.51 Tubal ligation status
CPT/HCPCS: 36415; 71045; 71046; 80048; 82607; 82728; 82747; 82962; 83540; 83550; 83605; 83880; 84484; 85014; 85025; 85610; 87040; 87804; 93005; 93306; 97116; 97162; 97166; 97530; 97535; 99251; 99285; A4216; G0463; J1940

== ENCOUNTER → 2019-11-20 10:30 | Outpatient (CLI) | payer MEDICARE, SELFPAY ==
[2019-11-08 13:07] VITALS: BMI 37.7
[2019-11-20 12:17] LABS: Absolute Lymphocyte Count 1.66 X10^3/uL (0.83-4.51); Absolute Neutrophil Count 2.6 X10^3/uL (2.0-7.7); Basophil# 0.01 X10^3/uL; Basophil% 0.2 % (0-1); Eosinophil# 0.08 X10^3/uL; Eosinophils% 1.7 % (0-5); Hematocrit 32.9 % (37-47); Hemoglobin 9.9 g/dL (12.0-15.0); Lymphocyte # 1.66 X10^3/ul (4.0); Lymphocyte % 34.3 % (19-41); Mean Corp Hgb Conc 30.1 g/dL (32-36); Mean Corpuscular Hgb 27.4 pg (27.0-32.0); Mean Corpuscular Volume 91.1 fL (81-99); Mean Platelet Vol. 12.4 fl (6.2-12.0); Monocyte# 0.43 X10^3/uL; Monocyte% 8.9 % (0-10); NRBC Flagged by Analyzer 0 % (0-5); Neutrophil # 2.63 X10^3/uL (2.7-7.7); Neutrophil % 54.3 % (47-70); Platelet Count 104 K/mm3 (150-450); RBC Distribution Width CV 17.1 % (11.6-14.6); RBC Distribution Width SD 57.2 fl (35.1-43.9); Red Blood Count 3.61 M/mm3 (4.2-5.4); White Blood Count 4.8 K/mm3 (4.4-11.0)
[2019-11-20 12:29] LABS: Anion Gap 4 (5-15); BUN 17 mg/dL (7-18); BUN/Creat Ratio 17.8 RATIO (10-20); Calcium,Total 8.9 mg/dL (8.5-10.1); Chloride 107 mmol/L (98-107); Creatinine, Serum 0.96 mg/dL (0.55-1.02); EST Glomerular Filtration Rate 60 mL/min (>60); Est Glom Filt Rate - Afr Amer 72 mL/min (>60); Glucose 136 mg/dL (74-106); Potassium 3.9 mmol/L (3.5-5.1); Sodium Level 139 mmol/L (136-145)
== END ==
PROVIDERS: PCP Family Medicine; Referring Provider Family Medicine; Visit Provider Family Medicine
DX: I11.0 Hypertensive heart disease with heart failure (principal); I50.23 Acute on chronic systolic (congestive) heart failure; E11.9 Type 2 diabetes mellitus without complications; D64.9 Anemia, unspecified
CPT/HCPCS: 80048; 85025

== ENCOUNTER 2019-12-03 09:37 | Emergency (ER) | payer MEDICARE, SELFPAY ==
[2019-12-01 15:00] VITALS: BMI 37.7
[2019-12-03] VITALS (11 sets, daily range): BP systolic 131–158; BP diastolic 67–89; PULSE 74–96; RESP 14–20; TEMP 36.8–36.9; O2SAT 96–100; BMI 36.0
--- NOTE | 2019-12-03 09:59 | EKG12_ITS ---
Test Reason : CP Blood Pressure : / mmHG Vent. Rate : 092 BPM Atrial Rate : 092 BPM P-R Int : 178 ms QRS Dur : 138 ms QT Int : 396 ms P-R-T Axes : 065 -03 009 degrees QTc Int : 489 ms Sinus rhythm with occasional Premature ventricular complexes Non-specific intra-ventricular conduction block Cannot rule out Anterior infarct , age undetermined Abnormal ECG Confirmed by KALE YADAV, MISTY ([id number]), newspaper copy editor DIANA STEWART ([id number]) on 12/06/2019 9:27:36 AM Referred By: BLANCA Confirmed By:MISTY HENLEY MD
--- NOTE | 2019-12-03 09:59 | RAD_ITS ---
STUDY: X-RAY CHEST REASON FOR EXAM: Female, 78 years old. chest pain TECHNIQUE: Single AP portable view of the chest. COMPARISON: November 10, 2019 FINDINGS: There are monitoring and support devices. There are interstitial septal and groundglass increased opacities of the lungs. There is no demonstrated pleural abnormality. Sternal cerclage wires are present from a prior sternotomy. There is cardiac enlargement. Normal mediastinum and pranay. Normal visualized pulmonary arteries. Normal visualized aortic arch and descending thoracic aorta. There is demineralization of the osseous structures. Normal visualized ribs, clavicles, and shoulders. There is no demonstrated abnormality of the visualized soft tissue structures of the upper abdomen. RAD/Chest 1 View (Portable) IMPRESSION: Interstitial edema and/or infiltrates. Electronically Signed: Rogelio Chung MD at 10:27 EDT , Service support ,
[2019-12-03 10:07] LABS: Absolute Lymphocyte Count 1.68 X10^3/uL (0.83-4.51); Absolute Neutrophil Count 2.6 X10^3/uL (2.0-7.7); Basophil# 0.01 X10^3/uL; Basophil% 0.2 % (0-1); Eosinophil# 0.09 X10^3/uL; Eosinophils% 1.9 % (0-5); Hematocrit 32.8 % (37-47); Lymphocyte # 1.68 X10^3/ul (4.0); Lymphocyte % 35.7 % (19-41); Mean Corp Hgb Conc 30.5 g/dL (32-36); Mean Corpuscular Hgb 27.4 pg (27.0-32.0); Mean Corpuscular Volume 89.9 fL (81-99); Monocyte# 0.33 X10^3/uL; NRBC Flagged by Analyzer 0 % (0-5); Neutrophil # 2.57 X10^3/uL (2.7-7.7); Neutrophil % 54.6 % (47-70); Platelet Count 112 K/mm3 (150-450); RBC Distribution Width CV 17.4 % (11.6-14.6); RBC Distribution Width SD 57.5 fl (35.1-43.9); Red Blood Count 3.65 M/mm3 (4.2-5.4); White Blood Count 4.7 K/mm3 (4.4-11.0)
[2019-12-03 10:13] LABS: International Normalized Ratio 3.2; Prothrombin Time (Protime)PT. 32.5 SECONDS (11.7-14.9)
[2019-12-03 10:21] LABS: Anion Gap 7 (5-15); BUN 14 mg/dL (7-18); BUN/Creat Ratio 15.4 RATIO (10-20); Calcium,Total 8.8 mg/dL (8.5-10.1); Chloride 104 mmol/L (98-107); Creatinine, Serum 0.91 mg/dL (0.55-1.02); EST Glomerular Filtration Rate 63 mL/min (>60); Est Glom Filt Rate - Afr Amer 76 mL/min (>60); Estimated Creatinine Clearance 44.37 ml/min; Glucose 134 mg/dL (74-106); Potassium 3.8 mmol/L (3.5-5.1); Sodium Level 138 mmol/L (136-145)
[2019-12-03] MEDS: Aspirin 81 MG TAB.CHEW 162 MG PO (10:21)
[2019-12-03] MEDS: Nitroglycerin SL (ED/IMG/CATH) 0.4 MG TABLET SUBLINGUAL ×2 (10:25→10:30)
--- NOTE | 2019-12-03 11:11 | ED.VISSUMM ---
- ER Visit Summary Date of Service: 12/03/19 Chief Complaint: [Chest pain] History of Present Illness: The patient is a 78 F presents the ER with complaint of chest pain that started last evening. Patient had hard time sleeping last night. She describes a sharp dull pain that is worse with breathing at times. Patient also complains of some leg swelling. Patient states that she has had increased weight this morning at 212 pounds where she is normally around 208. Patient has had some exertional dyspnea. She does complain of mild exertional dyspnea. [Patient has history of PE and DVT and is currently on Coumadin. Patient had 6 vessel CABG in 2002. Patient states that her tape weaver Dr. Gallo Patricia told her she could have stress test or heart catheterization.] Physical Examination: [HEENT-PERRLA, EOMI. Cranial nerves II through XII grossly intact. TMs clear. Mucous membranes moist. No adenopathy. Cardiovascular-regular rate and rhythm with 2 out of 6 systolic ejection murmur. Lungs-clear to auscultation, chest wall stable without crepitus or subcu emphysema Abdomen-normoactive bowel sounds, soft, nontender, no rebound or rigidity, no peritoneal signs. Extremities-intact ?4, normal range of motion, normal pulses, atraumatic] Test Results: [EKG obtained arrival shows sinus rhythm with a ventricular rate of 92 bpm with nonspecific intraventricular conduction block. CBC with it showing a 4.7, hemoglobin 10, hematocrit 33, platelets 112. Chemistries unremarkable. Troponin less than 0.015. INR was 3.2. Chest x-ray showed interstitial edema and questionable infiltrates.] Emergency Department Course and Treatment: [Patient received nitroglycerin on arrival in the emergency department as well as aspirin. Patient was given Lasix 40 mg IV. Case discussed with hospitalist will evaluate patient for admission. Patient was evaluated by hospitalist Dr. Pruitt who had a long discussion with the patient and the patient's daughter and at this time also reviewed patient's last heart cath and medical records and noted that patient is medical management only. It was felt that patient could be discharged to home with some medication adjustments and follow-up with pain management and her tape weaver. Both the patient and daughter were in agreement.] Treatment Plan: [Discharged with recommended follow-up with cardiology. Patient advised to return if worsening pain, increasing shortness of breath, or condition should worsen anyway.] Disposition: [Discharged home in stable condition] Impression: [Chest pain CHF] This note was generated with [employer] dictation software. It may contain incorrect words, spelling, and punctuation that were not noted in review of the chart prior to signing ED Disposition - Plan for ED Patient: Referrals: Osiel Arzola MD [Primary Care Provider] -
--- NOTE | 2019-12-03 11:17 | HP.PCM_ITS ---
History of Present Illness The patient is a 78 year old F [] Past Medical History Past Medical History (Chronic Problems): Chronic Problems (Last Updated 11/08/19 @ 11:[address] 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 Yanna Seymour MD) LBBB (left bundle branch block) (Chronic) I44.7 Atherosclerotic heart disease of [place] coronary artery without angina pectoris (Chronic) I25.10 Atherosclerosis of coronary artery bypass graft(s), unspecified, with other forms of angina pectoris (Chronic) I25.708 CABG x6- Sequential SVG in Sequence to the LAD, Descending Diagonal, CX/CX, and RCA/RCA 10/09/02 Benign hypertension (Chronic) I10 Obesity (Chronic) E66.9 Diabetes mellitus, type 2 (Chronic) E11.9 Systolic CHF, chronic (Chronic) I50.22 Thromboembolic disorder (Chronic) I74.9 Ischemic cardiomyopathy (Chronic) I25.5 Abnormal stress test R94.39 GERD (gastroesophageal reflux disease) K21.9 History of DVT (deep vein thrombosis) Z86.718 History of esophageal stricture Z87.19 History of pulmonary embolism Z86.711 Hyperlipidemia (Inactive) E78.5 Allergies doxycycline Allergy (Mild, Verified 12/03/19 09:40) Swelling Sulfa (Sulfonamide Antibiotics) Allergy (Verified 12/03/19 09:40) Rash tetracycline [Tetracycline] Allergy (Verified 12/03/19 09:40) Swelling dicyclomine Adverse Reaction (Verified 12/03/19 09:40) Other NSAIDS (Non-Steroidal Anti-Inflamma Adverse Reaction (Verified 12/03/19 09:40) Other Penicillins Adverse Reaction (Verified 12/03/19 09:40) Unknown Home Medications: Ambulatory Orders Medication Instructions Recorded Aspirin E.C. [Ecotrin] 81 mg PO DAILY@0800 03/08/17 Calcium Carbonate/Vitamin D3 1 ea PO BID 03/08/17 [Calcium 500-Vit D3 600 Caplet] Gabapentin [Neurontin] 600 mg PO 4X/DAY 03/08/17 Omeprazole [Prilosec] 20 mg PO BID 03/08/17 Cyanocobalamin [Vitamin B12] 500 mcg PO DAILY@0800 12/07/17 rosuvastatin 40 mg tablet 40 mg PO DAILY #90 tab 09/28/18 nitroglycerin 0.4 mg sublingual 0.4 mg SUBLINGUAL Q5-15M PRN #25 12/30/18 tablet tab Methocarbamol 500 mg PO TID PRN 02/27/19 Ubidecarenone [Coq-10] 100 mg PO DAILY 04/22/19 DiphenhydrAMINE [Benadryl] 25 mg PO QHS 05/28/19 warfarin 1 mg tablet 1 mg PO DAILY 06/30/19 Alendronate Sodium 70 mg PO QWEEK 09/17/19 isosorbide mononitrate 120 mg 120 mg PO DAILY #90 tab 10/10/19 tablet,extended release 24 hr Folic Acid 0.8 mg PO DAILY@0800 11/08/19 Warfarin [Coumadin] 3 mg PO DAILY 11/08/19 Potassium Chloride [K-Dur] 20 meq PO DAILYCM #30 tab 11/10/19 furosemide 20 mg tablet 60 mg PO DAILY #270 tab 12/01/19 hydrocodone 5 mg-acetaminophen 325 1 tab PO 4X/DAY 12/01/19 mg tablet metoprolol succinate 100 mg 100 mg PO DAILY #90 tab 12/01/19 tablet,extended release 24 hr potassium chloride 10 mEq 20 meq PO DAILY #180 cap 12/01/19 capsule,extended release Nitrofurantoin Monohyd/M-Cryst 100 mg PO BID 12/03/19 [Macrobid 100 mg Capsule] Surgical History: Surgical History (Last Reviewed 07/19/19 @ 09:46 by VERNA Best) Aortocoronary bypass status (Chronic) Onset Date: ~10/09/02 Z95.1 CABG x6- Sequential SVG in Sequence to the LAD, Descending Diagonal, CX/CX, and RCA/RCA 10/09/02 H/O arthroscopic knee surgery Z98.890 left knee 2001 History of partial knee replacement Z96.659 right History of total hysterectomy Z90.710 History of tubal ligation Z98.51 Hx of bilateral breast reduction surgery Z98.890 Hx of cholecystectomy Z90.49 Surgical History: appendectomy, cholecystectomy, coronary bypass surgery - 2002, hysterectomy, - - Breast reduction, right knee partial replacement, left knee repair, perforated bowel repair. kyphoplasty Psychiatric History: No pertinent psych hx [employer]ER History: No pertinent [employer]ES TE[employer]ER history Smoking Status: Never smoker - *Family History Maternal Family History: Family History (Last Reviewed 11/08/19 @ 11:[address] Yanna Seymour MD) Mother Myocardial infarction Hypertension Heart disease History of coronary artery bypass graft Brother Hypertension History of coronary artery bypass graft Father Cancer History Items: Heart Disease, Hypertension Paternal Family History: Family History (Last Reviewed 11/08/19 @ 11:[address] Yanna Seymour MD) Mother Myocardial infarction Hypertension Heart disease History of coronary artery bypass graft Brother Hypertension History of coronary artery bypass graft Father Cancer History Items: Cancer - Physical Exam Vitals/I&O's: Vital Signs Temp Pulse Resp BP Pulse Ox 98.4 F 77 16 133/72 H 99 12/03/19 09:37 12/03/19 11:00 12/03/19 11:00 12/03/19 11:00 12/03/19 11:00 Oxygen Flow Rate (L/min) 2 Oxygen Delivery Method Nasal Cannula Weight: 216 lb 11.43 oz Body Mass Index (BMI) 36.0 Laboratory Results 12/03/19 09:55: WBC 4.7, RBC 3.65 L, Hgb 10.0 L, Hct 32.8 L, MCV 89.9, MCH 27.4, MCHC 30.5 L, RDW Std Deviation 57.5 H, RDW Coeff of Maty 17.4 H, Plt Count 112 L, MPV 12.0, Immature Gran % (Auto) 0.600, Neut % (Auto) 54.6, Lymph % (Auto) 35.7, Luce % (Auto) 7.0, Eos % (Auto) 1.9, Baso % (Auto) 0.2, Absolute Neuts (auto) 2.6, Absolute Lymphs (auto) 1.68, Nucleated RBC % 0 12/03/19 09:55: PT 32.5 H, INR 3.2 12/03/19 09:55: Sodium 138, Potassium 3.8, Chloride 104, Carbon Dioxide 27.0, Anion Gap 7, BUN 14, Creatinine 0.91, Estim Creat Clear Calc 44.37, Est GFR (MDRD) Af Amer 76, Est GFR (MDRD) Non-Af 63, BUN/Creatinine Ratio 15.4, Glucose 134 H, Calcium 8.8, Troponin I < 0.015 Current Medications Sodium Chloride () 1,000 mls @ 0 mls/hr IV .Q0M ILYA Nitroglycerin (Nitrostat) 0.4 mg SUBLINGUAL Q5M PRN PRN Reason: Chest pain Last Admin: 12/03/19 10:30 Dose: 0.4 mg Documented by:
[2019-12-03] MEDS: Furosemide 40 MG/4 ML Vial IV (11:24)
--- NOTE | 2019-12-03 12:26 | DCINST_ITS ---
You will use the following diet at home:: No restrictions Your food should be the consistency of: Regular Your liquids should be the consistency of: Regular/Thin Discharge Activity: Return to Normal Activity Weight Bearing Status: Full weight bearing Allergies/Adverse Reactions: Allergies doxycycline Allergy (Mild, Verified 12/03/19 09:40) Swelling Sulfa (Sulfonamide Antibiotics) Allergy (Verified 12/03/19 09:40) Rash tetracycline [Tetracycline] Allergy (Verified 12/03/19 09:40) Swelling dicyclomine Adverse Reaction (Verified 12/03/19 09:40) Other NSAIDS (Non-Steroidal Anti-Inflamma Adverse Reaction (Verified 12/03/19 09:40) Other Penicillins Adverse Reaction (Verified 12/03/19 09:40) Unknown Medications to take at Discharge Aspirin E.C. [Ecotrin] 81 mg PO DAILY@0800 03/08/17 Calcium Carbonate/Vitamin D3 [Calcium 500-Vit D3 600 Caplet] 1 ea PO BID 03/08/17 Gabapentin [Neurontin] 600 mg PO 4X/DAY 03/08/17 Omeprazole [Prilosec] 20 mg PO BID 03/08/17 Cyanocobalamin [Vitamin B12] 500 mcg PO DAILY@0800 12/07/17 rosuvastatin 40 mg tablet 40 mg PO DAILY #90 tab 09/28/18 nitroglycerin 0.4 mg sublingual tablet 0.4 mg SUBLINGUAL Q5-15M PRN #25 tab 12/30/18 Methocarbamol 500 mg PO TID PRN 02/27/19 Ubidecarenone [Coq-10] 100 mg PO DAILY 04/22/19 DiphenhydrAMINE [Benadryl] 25 mg PO QHS 05/28/19 warfarin 1 mg tablet 1 mg PO DAILY 06/30/19 Alendronate Sodium 70 mg PO QWEEK 09/17/19 isosorbide mononitrate 120 mg tablet,extended release 24 hr 120 mg PO DAILY #90 tab 10/10/19 Folic Acid 0.8 mg PO DAILY@0800 11/08/19 Warfarin [Coumadin] 3 mg PO DAILY 11/08/19 Potassium Chloride [K-Dur] 20 meq PO DAILYCM #30 tab 11/10/19 furosemide 20 mg tablet 60 mg PO DAILY #270 tab 12/01/19 metoprolol succinate 100 mg tablet,extended release 24 hr 100 mg PO DAILY #90 tab 12/01/19 potassium chloride 10 mEq capsule,extended release 20 meq PO DAILY #180 cap 12/01/19 Hydrocodone/Acetaminophen [[place] 5-325 Tablet] 1 - 2 tab PO 4X/DAY PRN 7 Days #50 tablet 12/03/19 Nitrofurantoin Monohyd/M-Cryst [Macrobid 100 mg Capsule] 100 mg PO BID 12/03/19 Nitroglycerin SL (ED ONLY) [Nitrostat] 0.4 mg SUBLINGUAL Q5M PRN tablet 12/03/19 Ranolazine [Ranexa] 500 mg PO BID #60 tab 12/03/19 The following prescriptions were given: Hydrocodone/Acetaminophen [[place] 5-325 Tablet] 1 - 2 tab PO 4X/DAY PRN 7 Days #50 tablet PRN Reason: Pain Score 1-10/10 Transmission Status: Sent to [email or web address] #30 Ranolazine [Ranexa] 500 mg PO BID #60 tab Transmission Status: Pending to [email or web address] #30 Primary Care Physician: Osiel Arzola MD [Primary Care Provider] - Please follow up with your Primary Care Physician in: as scheduled Test Results: Test results from this visit will be discussed in further detail at your follow- up appointment, if applicable. Please Follow Up With: Gallo Patricia MD When: call office this week
--- NOTE | 2019-12-03 12:39 | ED.DEP ---
ED Disposition - Plan for ED Patient: Instructions: ED Chest Pain Atypical Unkn Cause Prescriptions: Hydrocodone/Acetaminophen [[place] 5-325 Tablet] 1 - 2 tab PO 4X/DAY PRN 7 Days #50 tab PRN Reason: Pain Score 1-10 Transmission Status: Received by [facility] Ranolazine [Ranexa] 500 mg PO BID #60 tab Transmission Status: Received by [facility] Referrals: Osiel Arzola MD [Primary Care Provider] - 3-5 Days Gallo Patricia MD [STAFF PHYSICIAN] - 3-5 Days
--- NOTE | 2019-12-03 13:28 | ED.RN ---
REVIEWED D/C INSTRUCTIONS, FOLLOW UP CARE, PRESCRIPTIONS, AND S/S THAT WOULD WARRANT A RETURN TO THE ED WITH PT. PT VERBALIZED AN UNDERSTANDING AND DENIES FURTHER QUESTIONS FOR THIS RN. PT SKIN P/W/D, RESP EVEN AND UNLABORED, PT A&O X 3, NO DISTRESS NOTED. PT ASSISTED OUT OF ED IN WHEELCHAIR.
== END 2019-12-03 13:30 | disposition home or self-care (01) ==
LOC: ED 10:38
PROVIDERS: Emergency Provider Emergency Medicine; PCP Family Medicine
DX: R07.9 Chest pain, unspecified (principal); I11.0 Hypertensive heart disease with heart failure; I50.23 Acute on chronic systolic (congestive) heart failure; I45.89 Other specified conduction disorders; I25.10 Atherosclerotic heart disease of native coronary artery without angina pectoris; R01.1 Cardiac murmur, unspecified; E78.00 Pure hypercholesterolemia, unspecified; Z79.01 Long term (current) use of anticoagulants; Z86.711 Personal history of pulmonary embolism; Z86.718 Personal history of other venous thrombosis and embolism; Z95.1 Presence of aortocoronary bypass graft
CPT/HCPCS: 71045; 80048; 84484; 85025; 85610; 93005; 96374; 99285; A4216; J1940

== ENCOUNTER 2020-01-15 09:37 | Day surgery (SDC) | payer MEDICARE, SELFPAY ==
[2019-12-03 09:37] VITALS: BMI 36.0
[2020-01-15 10:13] VITALS: BP 142/57; PULSE 86; RESP 16; TEMP 36.2; O2SAT 99; BMI 35.9
[2020-01-15] MEDS: Lactated Ringers 1,000 ML 100 ML IV (10:33)
[2020-01-15 10:41] LABS: Bedside Glucose 106 mg/dL (70-110)
[2020-01-15] MEDS: 0.9% Normal Saline (Pres. free 10 ML Vial (10:50)
[2020-01-15] MEDS: MethylPREDNISolone Acetate 80 MG/ML Vial (10:50)
[2020-01-15] MEDS: Bupivacaine 0.25% 30 ML Vial (10:50)
[2020-01-15 10:55] VITALS: BP 129/76; BP 142/57; PULSE 86; RESP 14; TEMP 36.4; O2SAT 97
[2020-01-15 11:00] VITALS: BP 131/74; BP 142/57; PULSE 85; RESP 16; O2SAT 97
--- NOTE | 2020-01-15 11:00 | RAD_ITS ---
PROCEDURE: Caudal block. DATE OF EXAMINATION: January 15, 2020. INDICATION: Female, 79 years old. Chronic pain. FLUOROSCOPY TIME (if supplied): (8 seconds) minutes/seconds Intraoperative images provided for caudal block. RAD/Fluor Guidance for Spine Inj IMPRESSION: Intraoperative imaging provided for caudal block. Electronically Signed: Omid Bansal, at 15:31 EDT , Service support ,
[2020-01-15 11:05] VITALS: BP 128/78; BP 142/57; PULSE 84; RESP 16; O2SAT 96
[2020-01-15 11:13] VITALS: BP 133/72; BP 142/57; PULSE 87; RESP 18; TEMP 37; O2SAT 98
--- NOTE | 2020-01-15 14:48 | PCM.OPRPT ---
Report of Operation Date of Procedure: 01/15/20 Description of Surgical Findings:: PREOPERATIVE DIAGNOSIS: Lumbosacral radiculopathy, lumbosacral degenerative disc disease, lumbosacral spinal stenosis POSTOPERATIVE DIAGNOSIS: Lumbosacral radiculopathy, lumbosacral degenerative disc disease, lumbosacral spinal stenosis PROCEDURE PERFORMED: Caudal epidural steroid injection. ANESTHESIA: MAC. BLOOD LOSS: Minimal. COMPLICATIONS: None. DESCRIPTION OF PROCEDURE: History and physical of today was reviewed. Risks and benefits of the procedure were explained. The patient understood and agreed to proceed. Informed consent was obtained. IV inserted per routine protocol. The patient was taken to the operating room and placed in the prone position with a pillow positioned underneath the abdomen. The lower back and tailbone area was prepped and draped in a sterile fashion using iodine x3. Under fluoroscopy guidance on a lateral view, the caudal space was identified. The skin and subcutaneous tissue was anesthetized with approximately 3 mL of 1% lidocaine using a 25-gauge regular needle. Under direct visualization with fluoroscopy, using a 22-gauge 3-1/2-inch spinal needle, the needle was advanced via the skin through the sacral hiatus. The tip of the needle was passed through the sacrococcygeal ligament and advanced to approximately S4 area. After negative aspiration of blood or CSF, a total of 3 mL of contrast was injected to confirm correct placement of the needle as well as cephalad spread. The spread was followed to approximately L5 area. After confirmation on AP as well as lateral view and repeated negative aspiration, a total of 15 mL of preservative-free 0.125% Marcaine with 80 mg of Depo-Medrol was injected easily. The needle was then removed intact. The patient experienced no sign or symptoms of intrathecal or intravascular injection. The patient experienced no paresthesia. The procedure was completed without any apparent difficulty or any complications. The patient appeared to tolerate it well. ASSESSMENT AND PLAN: 79-year-old female with lumbosacral radiculopathy, lumbosacral degenerative disc disease, lumbosacral spinal stenosis status post caudal epidural steroid injection patient will continue current medications, patient will follow approximately 2 weeks for reevaluation.
== END 2020-01-15 12:10 | disposition home or self-care (01) ==
LOC: SDC 09:43 → AC 09:45
PROVIDERS: PCP Family Medicine; Referring Provider Anesthesiology Pain Medicine; Visit Provider Anesthesiology Pain Medicine
PROC: 3E0S3BZ Introduction of Anesthetic Agent into Epidural Space, Percutaneous Approach (ICD-10-PCS; CPT 62282; principal; 2020-01-15 10:55)
DX: M48.07 Spinal stenosis, lumbosacral region (principal); M51.17 Intervertebral disc disorders with radiculopathy, lumbosacral region; E11.9 Type 2 diabetes mellitus without complications; I10 Essential (primary) hypertension; E78.5 Hyperlipidemia, unspecified; I25.10 Atherosclerotic heart disease of native coronary artery without angina pectoris; I25.2 Old myocardial infarction; Z86.718 Personal history of other venous thrombosis and embolism; Z95.1 Presence of aortocoronary bypass graft; Z79.82 Long term (current) use of aspirin; M17.12 Unilateral primary osteoarthritis, left knee; M25.562 Pain in left knee; Z79.891 Long term (current) use of opiate analgesic; M47.817 Spondylosis without myelopathy or radiculopathy, lumbosacral region; M51.37 Other intervertebral disc degeneration, lumbosacral region; M48.56XA Collapsed vertebra, not elsewhere classified, lumbar region, initial encounter for fracture
CPT/HCPCS: 62323; 64483; 77003; 82962; J7120; J3490

== ENCOUNTER 2020-01-19 16:33 | Emergency (ER) | payer MEDICARE, SELFPAY ==
[2020-01-19 16:33] VITALS: BP 115/63; PULSE 88; RESP 16; TEMP 36.7
[2020-01-19 16:34] VITALS: BP 115/63; PULSE 88; RESP 16; TEMP 36.7; BMI 35.6
[2020-01-19] MEDS: Ondansetron ODT 4 MG Tablet PO (17:05)
[2020-01-19] MEDS: morphine 10 MG/ML Syringe SC (17:05)
--- NOTE | 2020-01-19 17:24 | ED.DCSUM_ITS ---
History of Present Illness Informant: Patient Onset: Today Context: Gradual Onset Chronic pain exacerbated by: moving Injury: Bending Timing: Continuous Quality: Sharp Location: Thoracic, Lumbar Current Severity: Severe Maximum Severity: Severe Worsened by: improves with: Movement, Ambulation Relieved by: Remaining Still Narrative: 79-year-old female presents to the emergency department with back pain. Patient has chronic back pain. She has been treated through pain management for a compression fracture thoracic spine over the past year including an injection earlier this week but she is still having worsening pain not relieved by her N orco. No falls or injuries. She gets around with a walker and a wheelchair. No loss of bowel or bladder. No numbness tingling or weakness. No vomiting or fevers. No abdominal pain. She is been eating and drinking and urinating normally. Prior similar symptoms: Yes, With Prior Back Pain Recent Illness/Hospitalization: No <Laith Ryan - Last Filed: 01/19/20 17:45> <Teri Castro - Last Filed: 01/19/20 23:12> Chief Complaint: Back Past Medical History Prior records reviewed: Yes Past Medical History: - - chronic back pain Surgical History: appendectomy, cholecystectomy, coronary bypass surgery - 2002, hysterectomy, - - Breast reduction, right knee partial replacement, left knee repair, perforated bowel repair. kyphoplasty Lives: With Family Smoking Status: Never smoker Alcohol: None Drugs: None - Family History Maternal Family History: Family History (Last Reviewed 11/08/19 @ 11:[address] Yanna Seymour MD) Mother Myocardial infarction Hypertension Heart disease History of coronary artery bypass graft Brother Hypertension History of coronary artery bypass graft Father Cancer Family History: Reports: Heart Disease, Hypertension Paternal Family History: Family History (Last Reviewed 11/08/19 @ 11:[address] Yanna Seymour MD) Mother Myocardial infarction Hypertension Heart disease History of coronary artery bypass graft Brother Hypertension History of coronary artery bypass graft Father Cancer Family History: Reports: Cancer <Laith Ryan - Last Filed: 01/19/20 17:45> - Family History Maternal Family History: Family History (Last Reviewed 11/08/19 @ 11:[address] Yanna Seymour MD) Mother Myocardial infarction Hypertension Heart disease History of coronary artery bypass graft Brother Hypertension History of coronary artery bypass graft Father Cancer Paternal Family History: Family History (Last Reviewed 11/08/19 @ 11:[address] Yanna Seymour MD) Mother Myocardial infarction Hypertension Heart disease History of coronary artery bypass graft Brother Hypertension History of coronary artery bypass graft Father Cancer <Teri Castro - Last Filed: 01/19/20 23:12> - Allergies and Home Meds Allergies/Adverse Reactions: Allergies doxycycline Allergy (Mild, Verified 01/15/20 10:07) Swelling Sulfa (Sulfonamide Antibiotics) Allergy (Verified 01/15/20 10:07) Rash tetracycline [Tetracycline] Allergy (Verified 01/15/20 10:07) Swelling dicyclomine Adverse Reaction (Verified 01/15/20 10:07) Other NSAIDS (Non-Steroidal Anti-Inflamma Adverse Reaction (Verified 01/15/20 10:07) Other Penicillins Adverse Reaction (Verified 01/15/20 10:07) Unknown Primary Care Physician: Osiel Arzola MD [Primary Care Provider] - Review of Systems All systems negative except as indicated General: Denies: Chills, Fever, Sweats Eyes: Denies: Visual changes - bilaterally, Diplopia ENT: Denies: Rhinorrhea, Sore throat Cardiovascular: Denies: Chest pain, Palpitations Respiratory: Denies: Dyspnea, Cough, Dyspnea on exertion Gastrointestinal: Denies: Abdominal pain, Nausea, Vomiting, Diarrhea, Melena, Hematochezia Genitourinary: Denies: Dysuria, Hematuria, Frequency Musculoskeletal: Reports: Back pain. Denies: Myalgias, Arthralgias, Neck pain, Swelling, Extremity Pain Skin: Denies: Rash, Wounds Neurological: Denies: Headache, Weakness, Numbness <Laith Ryan - Last Filed: 01/19/20 17:45> Physical Exam Vital Signs/Narrative: Vital Signs Temp Pulse Resp BP 01/19/20 16:34 98.1 F 88 16 115/63 01/19/20 16:33 98.1 F 88 16 115/63 Inital Vital Signs reviewed: Yes General: Well nourished, Well developed Head: Normocephalic, Atraumatic Eyes: Perrl, EOMI ENT: Moist mucous membranes, No rhinorrhea Neck: Supple, Nontender Cardiovascular: Regular rate, Regular rhythm, No murmurs Respiratory: No distress, CTA bilaterally, Chest nontender Abdomen: Soft, Nontender, Nondistended, Normal bowel sounds Back: Normal Inspection, Nontender, Surgical Scar, Well-Healed, Paraspinal Tenderness, Negative SLR - Right, Negative SLR - Left. Negative for: Spinal tenderness, CVA tenderness Extremeties: Nontender, No edema Skin: Normal color, No rash Neuro: Alert, Oriented, Normal Strength, Normal Sensation, Normal DTR, Normal Gait Psychological: Normal affect <Laith Ryan - Last Filed: 01/19/20 17:45> Diagnostic/Tx/Re-eval - Medical Decision Making The patient has no signs or symptoms of cauda equina syndrome. Her back where the injection was shows no sign of infection. This is an acute exacerbation of her chronic back pain. She was given morphine. Her symptoms improved. She has [place] at home that she will take. She will follow-up with her pain management doctor on Wednesday. She will continue to rest ice as directed. <Laith Ryan - Last Filed: 01/19/20 17:45> - Medical Decision Making I have personally performed a [id number] assessment of the patient and have reviewed the PA note. My silverio findings include: 79-year-old female presenting with acute on chronic back pain. Back pain is consistent with pain she has had in the past. She has no bowel or bladder incontinence. No numbness or weakness. She takes [place] at home. She is in pain management. She was given morphine in the emergency department with improvement of her pain. She will follow-up with pain management. Advised return to ED if worsening complaints. <Teri Castro - Last Filed: 01/19/20 23:12> ED Disposition <Laith Ryan - Last Filed: 01/19/20 17:45> <Teri Castro - Last Filed: 01/19/20 23:12> - Plan for ED Patient: Disposition: Home or Assisted Living Diagnosis: Acute exacerbation of chronic low back pain, Compression fracture of T12 vertebra, Systolic CHF, chronic, Atherosclerotic heart disease of [place] coronary artery without angina pectoris, Benign hypertension, Ischemic cardiomyo rocio, LBBB (left bundle branch block), Diabetes mellitus, type 2 Instructions: ED Back Pain Acute or Chronic Referrals: Osiel Arzola MD [Primary Care Provider] -
[2020-01-19 17:54] VITALS: RESP 18
== END 2020-01-19 18:24 | disposition home or self-care (01) ==
LOC: ED 18:01
PROVIDERS: Emergency Provider Physician Assistant Medical; PCP Family Medicine
DX: G89.29 Other chronic pain (principal); M54.5 Low back pain; M48.54XA Collapsed vertebra, not elsewhere classified, thoracic region, initial encounter for fracture; I25.10 Atherosclerotic heart disease of native coronary artery without angina pectoris; I50.22 Chronic systolic (congestive) heart failure; I11.0 Hypertensive heart disease with heart failure; Z82.49 Family history of ischemic heart disease and other diseases of the circulatory system; Z88.0 Allergy status to penicillin; Z88.1 Allergy status to other antibiotic agents; Z88.2 Allergy status to sulfonamides; Z88.6 Allergy status to analgesic agent; Z90.49 Acquired absence of other specified parts of digestive tract; Z90.710 Acquired absence of both cervix and uterus; I44.7 Left bundle-branch block, unspecified; E11.9 Type 2 diabetes mellitus without complications; I25.5 Ischemic cardiomyopathy
CPT/HCPCS: 96372; 99283

== ENCOUNTER → 2020-03-15 12:46 | Outpatient (CLI) | payer MEDICARE, SELFPAY ==
--- NOTE | 2020-03-15 12:49 | ECHOCS_ITS ---
Reason For Study: CHF Procedure This was a 2D Doppler, Color Flow transthoracic echocardiogram. The study was technically difficult. Contrast injection was performed. Exam performed in department. Left Ventricle Mildly dilated left ventricle. Apical false tendon noted. Severe segmental systolic dysfunction (see wall motion). The estimated ejection fraction is 25 %. Posterior-Basal: Hypokinetic. Infero-Basal: Akinetic. Basal inferoseptal: Akinetic. Mid-Lateral : Hypokinetic. Mid-Posterior: Hypokinetic. Mid- Inferior: Akinetic. Mid-inferoseptal : Hypokinetic. Anterior Panacea : Hypokinetic. Inferior Panacea : Akinetic. Lateral Panacea : Hypokinetic. Septal Panacea : Hypokinetic. Right Ventricle Normal RV size. Normal systolic function. Atria The left atrium is moderately enlarged. Normal right atrium. No doppler evidence for ASD. Mitral Valve There is moderate mitral annular calcification. Extension of the mitral annular calcification onto the base of the posterior mitral valve leaflet. Mild papillary muscle dysfunction of the mitral valve. Mild mitral valve stenosis. Mild (1+) mitral valve insufficiency. Tricuspid Valve Normal tricuspid valve. Moderate (2+) tricuspid valve insufficiency. Right ventricular systolic pressure estimated to be 48 mmHg. Aortic Valve Trisinus/trileaflet aortic valve. Moderate focal aortic valve calcification. Mild to moderate aortic stenosis. Pulmonic Valve The pulmonic valve is not well visualized. Great Vessels Normal sized aortic root. Pericardium/Pleural No pericardial effusion. Medication 22 gauge I.V. with prn adaptor inserted into right arm. Diluted definity 3ml given slow IV push to enhance endocardial definition. MMode/2D Measurements & Calculations LVIDd: 5.5 cm IVSd: 0.72 cm LVOT diam: 2.0 cm LVIDs: 5.2 cm LVPWd: 0.66 cm FS: 4.6 % LVOT area: 3.1 cm2 Ao root diam: 3.0 cm LAV(MOD-bp): 57.2 ml LA A4 area: 19.6 cm2 LA dimension: 4.5 cm LAV(MOD-bp) Indexed: 27.0 ml/m2 LAV(MOD-sp2): 57.8 ml LAV(MOD-sp4): 57.7 ml RA A4 area: 13.6 cm2 Time Measurements MV dec time: 0.17 sec Doppler Measurements & Calculations MV E max pastor: 118.1 cm/sec Lat Peak E' Pastor: 6.5 cm/sec MV V2 max: 148.9 cm/sec MV A max pastor: 104.9 cm/sec E/E' lat: 18.1 MV max P.9 mmHg MV E/A: 1.1 MV V2 mean: 82.0 cm/sec MV mean P.2 mmHg MV V2 VTI: 35.6 cm MVA(VTI): 1.9 cm2 MV P1/2t max pastor: 150.7 cm/sec Ao V2 max: 239.7 cm/sec LV V1 max: 94.7 cm/sec MV P1/2t: 56.6 msec Ao max P.0 mmHg LV V1 max P.6 mmHg Ao V2 mean: 162.5 cm/sec LV V1 mean P.8 mmHg MV dec slope: 780.0 cm/sec2 Ao mean P.2 mmHg LV V1 mean: 61.6 cm/sec MVA(P1/2t): 3.9 cm2 Ao V2 VTI: 58.3 cm LV V1 VTI: 21.8 cm SRIKANTH(I,D): 1.2 cm2 SRIKANTH(V,D): 1.2 cm2 SV(LVOT): 67.8 ml PA V2 max: 96.6 cm/sec TR max pastor: 335.8 cm/sec TR max P.1 mmHg Interpretation Summary The study was technically difficult. Contrast injection was performed. Mildly dilated left ventricle. Severe segmental systolic dysfunction (see wall motion). The estimated ejection fraction is 25 %. Apical false tendon noted. The left atrium is moderately enlarged. There is moderate mitral annular calcification. Extension of the mitral annular calcification onto the base of the posterior mitral valve leaflet. Mild papillary muscle dysfunction of the mitral valve. Mild mitral valve stenosis. Mild (1+) mitral valve insufficiency. Moderate (2+) tricuspid valve insufficiency. Mild to moderate aortic stenosis. Right ventricular systolic pressure estimated to be 48 mmHg. Transmitral diastolic flow velocities suggest diastolic dysfunction (pseudonormal pattern). Ordering Physician: Bre Marinelli Referring Physician: Bre Marinelli Performed By: Jeremiah Mcdowell RCS
[2020-03-15 16:10] LABS: Anion Gap 3 (5-15); BUN 16 mg/dL (7-18); BUN/Creat Ratio 15.5 RATIO (10-20); Calcium,Total 8.7 mg/dL (8.5-10.1); Chloride 107 mmol/L (98-107); Creatinine, Serum 1.03 mg/dL (0.55-1.02); EST Glomerular Filtration Rate 55 mL/min (>60); Est Glom Filt Rate - Afr Amer 66 mL/min (>60); Glucose 98 mg/dL (74-106); Magnesium 2.1 mg/dL (1.6-2.6); Potassium 4.4 mmol/L (3.5-5.1); Sodium Level 140 mmol/L (136-145)
== END ==
PROVIDERS: Internal Medicine Cardiovascular Disease; PCP Family Medicine; Referring Provider Physician Assistant Medical; Visit Provider Physician Assistant Medical
DX: I25.10 Atherosclerotic heart disease of native coronary artery without angina pectoris (principal); I50.22 Chronic systolic (congestive) heart failure; I25.5 Ischemic cardiomyopathy; Z95.1 Presence of aortocoronary bypass graft; I11.0 Hypertensive heart disease with heart failure
CPT/HCPCS: 36415; 80048; 83735; 93306; Q9957; A4216; C8929

== ENCOUNTER → 2020-05-06 12:53 | Outpatient (CLI) | payer MEDICARE, SELFPAY ==
[2020-03-15 13:58] VITALS: BMI 36.0
== END ==
PROVIDERS: PCP Family Medicine; Referring Provider Family Medicine; Visit Provider Family Medicine
DX: E11.9 Type 2 diabetes mellitus without complications (principal); Z87.440 Personal history of urinary (tract) infections; R30.0 Dysuria; R33.9 Retention of urine, unspecified
CPT/HCPCS: 87077; 87086; 87088; 87186

== ENCOUNTER → 2020-05-17 05:46 | Outpatient (CLI) | payer MEDICARE, SELFPAY ==
[2020-03-15 13:58] VITALS: BMI 36.0
[2020-05-17 11:05] LABS: Prothrombin Time Fingerstick 34.1 SEC (11.9-14.4)
== END ==
PROVIDERS: PCP Family Medicine; Referring Provider Internal Medicine Cardiovascular Disease; Visit Provider Internal Medicine Cardiovascular Disease
DX: I74.9 Embolism and thrombosis of unspecified artery (principal); Z79.01 Long term (current) use of anticoagulants; I25.10 Atherosclerotic heart disease of native coronary artery without angina pectoris
CPT/HCPCS: 36416; 85610

== ENCOUNTER → 2020-05-22 09:35 | Outpatient (CLI) | payer MEDICARE, SELFPAY ==
[2020-03-15 13:58] VITALS: BMI 36.0
[2020-05-22 10:52] LABS: Absolute Lymphocyte Count 2.12 X10^3/uL (0.83-4.51); Absolute Neutrophil Count 1.6 X10^3/uL (2.0-7.7); Basophil# 0.01 X10^3/uL; Basophil% 0.2 % (0-1); Eosinophil# 0.07 X10^3/uL; Eosinophils% 1.6 % (0-5); Hematocrit 34.7 % (37-47); Hemoglobin 10.7 g/dL (12.0-15.0); Lymphocyte # 2.12 X10^3/ul (4.0); Lymphocyte % 49.2 % (19-41); Mean Corp Hgb Conc 30.8 g/dL (32-36); Mean Corpuscular Hgb 31.2 pg (27.0-32.0); Mean Corpuscular Volume 101.2 fL (81-99); Mean Platelet Vol. 13.9 fl (6.2-12.0); Monocyte# 0.32 X10^3/uL; Monocyte% 7.4 % (0-10); NRBC Flagged by Analyzer 0 % (0-5); Neutrophil % 37.2 % (47-70); Platelet Count 116 K/mm3 (150-450); RBC Distribution Width CV 16.7 % (11.6-14.6); RBC Distribution Width SD 61.7 fl (35.1-43.9); Red Blood Count 3.43 M/mm3 (4.2-5.4); White Blood Count 4.3 K/mm3 (4.4-11.0)
[2020-05-22 11:16] LABS: Vitamin B12 1168 pg/mL (211-911)
== END ==
PROVIDERS: PCP Family Medicine; Referring Provider Family Medicine; Visit Provider Family Medicine
DX: D75.1 Secondary polycythemia (principal); D69.6 Thrombocytopenia, unspecified
CPT/HCPCS: 36415; 82607; 82746; 85025

== ENCOUNTER → 2020-05-30 04:49 | Outpatient (CLI) | payer MEDICARE, SELFPAY ==
[2020-03-15 13:58] VITALS: BMI 36.0
[2020-05-30 11:46] LABS: Prothrombin Time Fingerstick 21.9 SEC (11.9-14.4)
== END ==
PROVIDERS: PCP Family Medicine; Referring Provider Internal Medicine Cardiovascular Disease; Visit Provider Internal Medicine Cardiovascular Disease
DX: I74.9 Embolism and thrombosis of unspecified artery (principal); Z79.01 Long term (current) use of anticoagulants; I25.10 Atherosclerotic heart disease of native coronary artery without angina pectoris
CPT/HCPCS: 36416; 85610

== ENCOUNTER 2020-06-03 06:41 | Day surgery (SDC) | payer MEDICARE, SELFPAY ==
[2020-03-15 13:58] VITALS: BMI 36.0
[2020-06-03] VITALS (7 sets, daily range): BP systolic 98–110; BP diastolic 50–95; PULSE 78–108; RESP 16–18; TEMP 35.9–36.2; O2SAT 95–98; BMI 35.4
--- NOTE | 2020-06-03 07:11 | RAD_ITS ---
PROCEDURE: Bilateral lumbar facet joint injection. DATE OF EXAMINATION: 06/03/2020. INDICATION: Female, 79 years old. Chronic back pain. FLUOROSCOPY TIME (if supplied): (60) minutes/seconds. 8 intraoperative images were obtained. Intraoperative imaging for bilateral L3 S1 facet joint injection. RAD/L/S Spine w Bend Min 6 Vw IMPRESSION: Intraoperative imaging provided for bilateral L3-S1 facet joint injection. Electronically Signed: Omid Bansal, at 10:46 EDT , Service support ,
[2020-06-03] MEDS: Lactated Ringers 1,000 ML 100 ML IV (07:17)
[2020-06-03] MEDS: Bupivacaine 0.25% 30 ML Vial (08:00)
[2020-06-03] MEDS: MethylPREDNISolone Acetate 80 MG/ML Vial (08:01)
--- NOTE | 2020-06-03 16:31 | PCM.OPRPT ---
Report of Operation Date of Procedure: 06/03/20 Description of Surgical Findings:: PREOPERATIVE DIAGNOSIS: Lumbosacral spondylosis, lumbosacral degenerative disc disease, lumbar facet arthropathy POSTOPERATIVE DIAGNOSIS: Lumbosacral spondylosis, lumbosacral degenerative disc disease, lumbar facet arthropathy PROCEDURE PERFORMED: Bilateral lumbar facet steroid injection, L3, L4, L5, and S1. ANESTHESIA: MAC. BLOOD LOSS: Minimal. COMPLICATIONS: None. DESCRIPTION OF PROCEDURE: History and physical of today was reviewed. Risks and benefits of the procedure were explained. The patient understood and agreed to proceed. Informed consent was obtained. IV inserted per routine protocol. The patient was taken to the operating room and placed in the prone position with a pillow positioned underneath the abdomen. The lower back was prepped and draped in a sterile fashion using iodine x3. Under fluoroscopy on oblique view, the L3 through S1 vertebral bodies were visualized. The skin and subcutaneous tissue was anesthetized with approximately 5 mL of 1% lidocaine using a 25-gauge regular needle. Under direct visualization with fluoroscopy, at approximately 25-degree angle starting on the left L3, ending on the right L3, passing through the L4 and L5 bilaterally, using a 22-gauge 3-1/2-inch spinal needle, the needle was advanced via the skin. The tip of the needle was maneuvered and directed towards the superior medial gutter of the transverse process at the vicinity of the medial branch. Once tip of the needle was in contact with the bone, the needle was pulled approximately 2 mm off the bone. After negative aspiration of blood or CSF and confirmation on AP as well as oblique view, a total of 16 mL of preservative-free 0.25% Marcaine with 80 mg of Depo-Medrol was injected in divided doses between those 8 levels. The needles were then removed intact. The patient experienced no sign or symptoms of intrathecal or intravascular injection. The patient experienced no paresthesia. The procedure was completed without any apparent difficulty or any complications. The patient appeared to tolerate it well. ASSESSMENT AND PLAN: This is an 79-year-old female with lumbosacral spondylosis, lumbosacral drain disc disease, lumbar facet arthropathy status post bilateral lumbar facet steroid injection L3-S1, patient will continue current medications, patient will follow in approximately 2 weeks for reevaluation.
[2020-06-04 09:25] LABS: Prothrombin Time Fingerstick 16.3 SEC (11.9-14.4)
== END 2020-06-03 09:07 | disposition home or self-care (01) ==
LOC: SDC 06:42 → AC 06:44
PROVIDERS: PCP Family Medicine; Referring Provider Anesthesiology Pain Medicine; Visit Provider Anesthesiology Pain Medicine
PROC: 3E0T3BZ Introduction of Anesthetic Agent into Peripheral Nerves and Plexi, Percutaneous Approach (ICD-10-PCS; CPT 64493; principal; 2020-06-03 07:55)
DX: M47.816 Spondylosis without myelopathy or radiculopathy, lumbar region (principal); M51.37 Other intervertebral disc degeneration, lumbosacral region; M47.817 Spondylosis without myelopathy or radiculopathy, lumbosacral region; I25.10 Atherosclerotic heart disease of native coronary artery without angina pectoris; E11.42 Type 2 diabetes mellitus with diabetic polyneuropathy; E78.5 Hyperlipidemia, unspecified; I10 Essential (primary) hypertension; Z86.718 Personal history of other venous thrombosis and embolism; Z86.711 Personal history of pulmonary embolism; I25.2 Old myocardial infarction; R13.12 Dysphagia, oropharyngeal phase; Z79.899 Other long term (current) drug therapy; Z79.891 Long term (current) use of opiate analgesic; M17.12 Unilateral primary osteoarthritis, left knee; Z95.1 Presence of aortocoronary bypass graft
CPT/HCPCS: 01935; 64493; 64494 ×2; 64495 ×2; 36416; 64483; 72114; 85610; J7120

== ENCOUNTER → 2020-06-06 07:30 | Outpatient (CLI) | payer MEDICARE, SELFPAY ==
[2020-06-03 07:06] VITALS: BMI 35.4
[2020-06-06 09:58] LABS: Prothrombin Time Fingerstick 15.9 SEC (11.9-14.4)
[2020-06-06 10:09] LABS: International Normalized Ratio 1.1; Prothrombin Time (Protime)PT. 13.2 SECONDS (11.7-14.9)
== END ==
PROVIDERS: PCP Family Medicine; Visit Provider Internal Medicine Cardiovascular Disease
DX: I74.9 Embolism and thrombosis of unspecified artery (principal); I25.10 Atherosclerotic heart disease of native coronary artery without angina pectoris; Z79.01 Long term (current) use of anticoagulants
CPT/HCPCS: 36416; 85610

== ENCOUNTER → 2020-06-10 03:50 | Outpatient (CLI) | payer MEDICARE, SELFPAY ==
[2020-06-03 07:06] VITALS: BMI 35.4
[2020-06-10 11:11] LABS: Prothrombin Time Fingerstick 27.9 SEC (11.9-14.4)
== END ==
PROVIDERS: PCP Family Medicine; Referring Provider Internal Medicine Cardiovascular Disease; Visit Provider Internal Medicine Cardiovascular Disease
DX: I74.9 Embolism and thrombosis of unspecified artery (principal); I25.10 Atherosclerotic heart disease of native coronary artery without angina pectoris; Z79.01 Long term (current) use of anticoagulants
CPT/HCPCS: 36416; 85610

== ENCOUNTER 2020-06-10 20:12 | Inpatient (IN) | payer MEDICARE, SELFPAY ==
[2020-06-03 07:06] VITALS: BMI 35.4
[2020-06-10 20:13] VITALS: BP 106/52; PULSE 93; RESP 16; TEMP 36.3; O2SAT 99; BMI 36.0
--- NOTE | 2020-06-10 21:08 | ED.DCSUM_ITS ---
History of Present Illness Chief Complaint: Lower Extremity Injury Informant: Patient Onset: Days - 3 Context: Gradual Onset Timing: Continuous Quality: pain Location: lateral distal right thigh and into proximal knee area Current Severity: Moderate Maximum Severity: Severe Worsened by: trying to WB, bend knee Relieved by: remaining still Associated Symptoms: n/v just now due to the pain. no injury. no systemic sx. Narrative: Patient had a total knee replacement on the right remotely. She has had no recent injury, but in the past several days she has had gradual onset and worsening of pain and swelling in the distal right thigh, she states it is really in the lateral aspect of it, and progresses to the area of the suprapatellar pouch, but she states the knee proper really is not bothering her although bending it makes her thigh hurt worse. She denies any new neurologic symptoms. She is on Coumadin for history of blood clots in the legs and lungs. She has had no fevers, chills, or other systemic symptoms. She has been dragg ing her right lower extremity due to the pain, while trying to get around with her walker at home. She lives with family. She did sustain some fractures to her back, I suspect compression fractures, within the past several weeks and last week she had 4 injections in her low back. They were helping the pain, and she is not focusing on that anymore because of her right lower extremity now. In order to prepare for the injections, she was ordered to discontinue her Coumadin temporarily. When she restarted it after the injections last week, she was also placed on Lovenox to bridge. She just took her last Lovenox shot today. Her INR was 2.4 this morning. - Past Medical History (1) Atherosclerosis of coronary artery bypass graft(s), unspecified, with other forms of angina pectoris Status: Chronic Comment: CABG x6- Sequential SVG in Sequence to the LAD, Descending Diagonal, CX/CX, and RCA/RCA 10/09/02 (2) Benign hypertension Status: Chronic (3) Compression fracture of T12 vertebra Status: Chronic (4) Diabetes mellitus, type 2 Status: Chronic (5) Ischemic cardiomyopathy Status: Chronic (6) LBBB (left bundle branch block) Status: Chronic (7) Primary osteoarthritis of left knee Status: Chronic (8) Systolic CHF, chronic Status: Chronic (9) Thromboembolic disorder Status: Chronic Past Medical History - Allergies and Home Meds Allergies/Adverse Reactions: Allergies doxycycline Allergy (Mild, Verified 06/10/20 20:15) Swelling Sulfa (Sulfonamide Antibiotics) Allergy (Verified 06/10/20 20:15) Rash tetracycline [Tetracycline] Allergy (Verified 06/10/20 20:15) Swelling dicyclomine Adverse Reaction (Verified 06/10/20 20:15) Other NSAIDS (Non-Steroidal Anti-Inflamma Adverse Reaction (Verified 06/10/20 20:15) Other Penicillins Adverse Reaction (Verified 06/10/20 20:15) Unknown Primary Care Physician: Osiel Arzola MD [Primary Care Provider] - Surgical History: appendectomy, cholecystectomy, coronary bypass surgery - 2002, hysterectomy, - - Breast reduction, right knee partial replacement, left knee repair, perforated bowel repair. kyphoplasty Lives: With Family Smoking Status: Never smoker - Family History Maternal Family History: Family History (Last Reviewed 03/15/20 @ 14:02 by Bre Bone) Mother Myocardial infarction Hypertension Heart disease History of coronary artery bypass graft Brother Hypertension History of coronary artery bypass graft Father Cancer Family History: Reports: Heart Disease, Hypertension Paternal Family History: Family History (Last Reviewed 03/15/20 @ 14:02 by Bre Bone) Mother Myocardial infarction Hypertension Heart disease History of coronary artery bypass graft Brother Hypertension History of coronary artery bypass graft Father Cancer Family History: Reports: Cancer Review of Systems General: Denies: Chills, Fever, Sweats Eyes: Denies: Visual changes - bilaterally, Diplopia ENT: Denies: Rhinorrhea, Sore throat Cardiovascular: Denies: Chest pain, Palpitations Respiratory: Denies: Dyspnea, Cough, Dyspnea on exertion Gastrointestinal: Reports: Nausea, Vomiting. Denies: Abdominal pain, Diarrhea, Melena, Hematochezia Genitourinary: Denies: Dysuria, Hematuria, Frequency Musculoskeletal: Reports: Back pain - See HPI, Swelling - See HPI, Extremity Pain. Denies: Myalgias Skin: Denies: Rash, Wounds Neurological: Denies: Headache, Weakness, Numbness Physical Exam Vital Signs/Narrative: Vital Signs Temp Pulse Resp BP Pulse Ox 06/10/20 20:13 97.4 F L 93 16 106/52 L 99 Inital Vital Signs reviewed: Yes General: Well nourished, Well developed, No Acute Distress Head: Normocephalic, Atraumatic Eyes: Perrl, EOMI ENT: Moist mucous membranes, No rhinorrhea Neck: Supple, Nontender Cardiovascular: Regular rate, Regular rhythm, Normal S1, Normal S2, Murmur - S ystolic 2/6 Respiratory: No distress, CTA bilaterally, Chest nontender Abdomen: Soft, Nontender, Nondistended, Normal bowel sounds Back: Nontender, Normal Inspection Extremities: Tenderness - Right lateral thigh, distal half is swollen but soft. There are no abnormal skin abnormalities except for a small relatively old ecchymosis just proximal to this which is nontender. The suprapatellar pouch appears mildly distended compared with contralateral side. , - - No tenderness anterior knee, and no palpable effusion. There are 2 small ecchymoses that appear old over the patella that are nontender, but this entire area has no other skin abnormal findings or discoloration/erythema or excessive warmth. She can bend the knee to about 60 degrees, but not past. Skin: Normal color, No rash Neurological: Alert, Oriented x3, Cranial nerves II-XII grossly intact, Normal Strength, Normal Sensation Psychological: Normal affect, Normal Mood Diagnostic/Tx/Re-eval Impressions Venous Duplex 06/10/20 21:39 IMPRESSION: No deep venous thrombosis. Fluid collection of the lateral thigh. Electronically Signed: Roeglio Chung MD at 22:43 EDT , Service support , Femur X-Ray 06/10/20 22:07 IMPRESSION: No fracture. Electronically Signed: Rogelio Chung MD at 22:44 EDT , Service support , Knee X-Ray 06/10/20 22:07 IMPRESSION: Degenerative and postoperative changes. Electronically Signed: Rogelio Chung MD at 22:36 EDT , Service support , 06/10/20 22:07 Femur Min 2 Views [RAD] Stat Knee 1 or 2 Views [RAD] Stat Laboratory Results 06/10/20 06/10/20 06/10/20 21:30 21:30 21:30 WBC 9.0 RBC 2.62 L Hgb 8.5 L Hct 27.4 L MCV 104.6 H MCH 32.4 H MCHC 31.0 L RDW Std Deviation 67.9 H RDW Coeff of Maty 17.8 H Plt Count 141 L Neut % (Auto) Not Reportable Absolute Neuts (auto) 5.9 Absolute Lymphs (auto) 1.80 Total Counted 100 Neutrophils % (Manual) 53 Band Neutrophils % 13 H Lymphocytes % (Manual) 20 Monocytes % (Manual) 5 Eosinophils % (Manual) 1 Metamyelocytes % 6 H Myelocytes % 2 H Diff Path Review May foll Platelet Estimate SLT DEC Polychromasia RARE Hypochromasia 1+ Anisocytosis 1+ Macrocytosis 1+ PT 21.1 H INR 1.9 Sodium 137 Potassium 4.5 Chloride 104 Carbon Dioxide 27.0 Anion Gap 6 BUN 25 H Creatinine 1.60 H Estim Creat Clear Calc 23.81 Est GFR (MDRD) Af Amer 40 L Est GFR (MDRD) Non-Af 33 L BUN/Creatinine Ratio 15.6 Glucose 172 H Calcium 8.8 - Medical Decision Making Ultrasound was obtained to rule out DVT, it was negative but does incidentally show a fluid collection where the patient is having pain. It is consistent with a hematoma, certainly also could be an abscess but there are no skin changes overlying this area that are consistent with infection and there is no significant increase in warmth. After discussing more with the patient, after it started bothering her over the weekend, she was placing a heating pad on it regularly. She is also on Lovenox to bridge her warfarin. I suspect this makes it more likely to be a hematoma and the heat was making it worse. She has lost about 2 g of hemoglobin into this area I estimate based on her hemoglobin now of 8.5 compared with 10.7 that was measured 2 weeks ago. Her main symptom now is pain, not symptoms of blood loss however. I do not think she needs a transfusion right now at 8.5, but I did send a type and screen in case this changes as she will need to be admitted since she cannot safely get around at home according to her and the daughter and I do not want her to fall since she is anticoagulated. She has acute kidney injury as well, so performing CT angiography of the right lower extremity could prove harmful to her kidneys. We placed ice packs on her right thigh, x-ray showed no acute abnormalities as expected, I discussed with orthopedics Dr. Hernadez, and the plan is to admit her to medicine with orthopedic consult. Her vital signs are stable and I do not think she needs to be emergently reversed, I see no objective evidence of active bleeding/emergent worsening at this time; I will give vitamin K 5 mg orally to start her reversal. It is also noted that she has some immature white blood cells present. Certainly infection is in the differential diagnosis, but I think this is less likely the diagnosis, it certainly has not been ruled out, which is part of the reason we are admitting her to the hospital. She is not septic at this time. ED Disposition - Plan for ED Patient: Disposition: Acute Care Hospital [facility] Diagnosis: Inability to walk, Hematoma of right thigh, Warfarin-induced coagulopathy, Acute blood loss anemia, NIKHIL (acute kidney injury) Referrals: Osiel Arzola MD [Primary Care Provider] -
[2020-06-10] MEDS: Ondansetron 4 MG/2 ML Vial IV (21:26)
[2020-06-10] MEDS: Morphine 2 MG/ML Syringe IV (21:26)
--- NOTE | 2020-06-10 21:39 | US_ITS ---
STUDY: VENOUS DOPPLER ULTRASOUND - RIGHT LOWER EXTREMITY REASON FOR EXAM: Female, 79 years old. RT LATERAL THIGH PAIN AND SWELLING TECHNIQUE: Ultrasound evaluation of the deep vein system to include monsalve-scale imaging and compression was performed. Monsalve-scale imaging and Doppler sonographic evaluation, including duplex spectral analysis and qualitative color flow sonography, was performed. COMPARISON: None. FINDINGS: Common Femoral Vein: Normal compression, spontaneity and augmentation. Normal color Doppler. Common Femoral Vein/Greater Saphenous Junction: Normal compression, spontaneity and augmentation. Normal color Doppler. Deep Femoral Vein: Normal compression, spontaneity and augmentation. Normal color Doppler. Femoral Proximal: Normal compression, spontaneity and augmentation. Normal color Doppler. Femoral Middle: Normal compression, spontaneity and augmentation. Normal color Doppler. Femoral Distal: Normal compression, spontaneity and augmentation. Normal color Doppler. Popliteal Vein: Normal compression, spontaneity and augmentation. Normal color Doppler. Posterior Tibial Vein: Normal compression, spontaneity and augmentation. Normal color Doppler. Peroneal Vein: Normal compression, spontaneity and augmentation. Normal color Doppler. There is no demonstrated deep venous thrombosis. There is 10.7 x 8.6 x 5.1 cm complex fluid collection in the lateral thigh. US/Venous Duplex Imag/Limited/Uni IMPRESSION: No deep venous thrombosis. Fluid collection of the lateral thigh. Electronically Signed: Rogelio Chung MD at 22:43 EDT , Service support ,
[2020-06-10 22:01] LABS: International Normalized Ratio 1.9; Prothrombin Time (Protime)PT. 21.1 SECONDS (11.7-14.9)
[2020-06-10 22:05] LABS: Anion Gap 6 (5-15); BUN 25 mg/dL (7-18); BUN/Creat Ratio 15.6 RATIO (10-20); Calcium,Total 8.8 mg/dL (8.5-10.1); Chloride 104 mmol/L (98-107); EST Glomerular Filtration Rate 33 mL/min (>60); Est Glom Filt Rate - Afr Amer 40 mL/min (>60); Estimated Creatinine Clearance 23.81 ml/min; Glucose 172 mg/dL (74-106); Potassium 4.5 mmol/L (3.5-5.1); Sodium Level 137 mmol/L (136-145)
--- NOTE | 2020-06-10 22:07 | RAD_ITS ---
STUDY: X-RAY - RIGHT KNEE REASON FOR EXAM: Female, 79 years old. right knee pain and swelling. no known injury. TECHNIQUE: 2 view(s) of the knee. COMPARISON: None. FINDINGS: There is demineralization of the visualized distal femur. There is demineralization of the tibia and fibula. Normal proximal tibiofibular articulation. There is no demonstrated fracture. There is partial joint replacement of the medial femorotibial compartment. There is mild degenerative arthrosis of the lateral femorotibial compartment. There is mild degenerative arthrosis of the patellofemoral articulation. There are postoperative changes in the soft tissues of the lower leg. There is suprapatellar soft tissue swelling. RAD/Knee 1 or 2 Views IMPRESSION: Degenerative and postoperative changes. Electronically Signed: Rogelio Chung MD at 22:36 EDT , Service support ,
--- NOTE | 2020-06-10 22:07 | RAD_ITS ---
STUDY: X-RAY - RIGHT FEMUR REASON FOR STUDY: Female, 79 years old. THIGH PAIN, NKI TECHNIQUE: Frontal and lateral view(s) of the femur. COMPARISON: None. FINDINGS: There is diffuse demineralization of the femur. There is partial knee replacement of the medial compartment. Normal visualized soft tissue structure. RAD/Femur Min 2 Views IMPRESSION: No fracture. Electronically Signed: Rogelio Chung MD at 22:44 EDT , Service support ,
[2020-06-10 22:19] LABS: Hematocrit 27.4 % (37-47); Hemoglobin 8.5 g/dL (12.0-15.0); Mean Corpuscular Hgb 32.4 pg (27.0-32.0); Mean Corpuscular Volume 104.6 fL (81-99); POSITIVE COUNT YES; POSITIVE MORPHOLOGY YES; Platelet Count 141 K/mm3 (150-450); RBC Distribution Width CV 17.8 % (11.6-14.6); RBC Distribution Width SD 67.9 fl (35.1-43.9); Red Blood Count 2.62 M/mm3 (4.2-5.4)
[2020-06-10 22:29] LABS: Differential Indicated MANUAL DIFF
[2020-06-10 22:49] VITALS: RESP 16
[2020-06-10] MEDS: HYDROcodone Bitartrate/Apap 5/325 Tablet PO (22:58)
[2020-06-10 23:01] LABS: Eosinophil 1 % (0-5); Lymphocyte 20 % (19-41); Metamyelocyte 6 % (0-1); Monocyte 5 % (0-10); Myelocyte 2 (0-0); Neutrophil-Band 13 % (0-5); Neutrophil-Segmented 53 % (47-70); Total Cells Counted 100 (MANUAL DIFF)
[2020-06-10 23:03] LABS: Neutrophil # 5.94 X10^3/uL (2.7-7.7)
[2020-06-10 23:04] LABS: Absolute Neutrophil Count 5.9 X10^3/uL (2.0-7.7)
[2020-06-10 23:05] LABS: Anisocytosis 1+; Hypochromasia 1+; Macrocytosis 1+; Platelet Estimate SLT DEC (ADEQ); Polychromasia RARE
[2020-06-11] VITALS (11 sets, daily range): BP systolic 97–160; BP diastolic 56–89; PULSE 91–139; RESP 16–18; TEMP 36.4–37.1; O2SAT 93–100; BMI 35.8
[2020-06-11] MEDS: Morphine 4 MG/ML Syringe IV (00:12)
--- NOTE | 2020-06-11 02:20 | CT_ITS ---
STUDY: CT PELVIS WITHOUT CONTRAST REASON FOR EXAM: Female, 79 years old. Right thigh pain and swelling. No injury. looking for hematoma RADIATION DOSAGE (If Supplied By Facility): CTDIvol = ( 26.93 ) mGy, DLP = ( 1872.92 ) mGycm TECHNIQUE: Transaxial imaging of the pelvis was performed with oral contrast, and without intravenous administration of contrast material. Individualized dose optimization techniques were used for this CT. COMPARISON: None. FINDINGS: Diffuse swelling of the right quadriceps muscle more specifically the vastus lateralis and rectus femoris muscle. There is evidence of a large hematoma measuring 7.1 cm x 4.4 cm involving the vastus lateralis muscle. A fluid fluid level is seen. This also evidence of increased markings in the surrounding subcutaneous fat. Normal urinary bladder. Normal visualized small intestine. There are multiple colonic diverticula of the sigmoid colon consistent with chronic diverticulosis. There is no pelvic fluid. There is no pelvic mass lesion or lymphadenopathy. There is diffuse atherosclerotic calcification of the pelvic arteries. Multiple subcutaneous nodules are seen overlying the lower anterior abdominal wall most likely secondary to prior injections. There are diffuse degenerative changes of the visualized lumbar spine. CT/Pelvis without IV Contrast IMPRESSION: Large hematoma with a fluid fluid level involving the vastus lateralis muscle as described with increased markings in the surrounding subcutaneous fat. Electronically Signed: Omid Bansal, at 9:16 EDT , Service support ,
[2020-06-11] MEDS: oxyCODONE 5 MG Tablet PO (02:51)
[2020-06-11] MEDS: 0.9% Saline Lock 10 ML Syringe IV ×4 (02:52→21:28)
[2020-06-11] MEDS: 0.9% Normal Saline 1,000 ML 100 ML IV ×2 (02:52→13:37)
[2020-06-11] MEDS: Phytonadione (Vit K1) 5 MG TABLET PO (03:02)
[2020-06-11 03:29] LABS: Basophil# 0.02 X10^3/uL; Eosinophil# 0.01 X10^3/uL; Hemoglobin 8.2 g/dL (12.0-15.0); Mean Corp Hgb Conc 30.4 g/dL (32-36); Mean Corpuscular Hgb 31.5 pg (27.0-32.0); Mean Corpuscular Volume 103.8 fL (81-99); Mean Platelet Vol. 13.9 fl (6.2-12.0); Monocyte# 0.89 X10^3/uL; NRBC Flagged by Analyzer 0.3 % (0-5); POSITIVE COUNT YES; POSITIVE MORPHOLOGY YES; Platelet Count 150 K/mm3 (150-450); RBC Distribution Width CV 17.7 % (11.6-14.6); RBC Distribution Width SD 67.1 fl (35.1-43.9); White Blood Count 9.7 K/mm3 (4.4-11.0)
[2020-06-11 03:34] LABS: Differential Indicated SCAN CRITERIA MET
--- NOTE | 2020-06-11 03:45 | NURSING ---
Pt unsure of home meds, does not have list with her. Pt states her daughter takes care of all of her meds and we would have to contact her-she will be available around 0900 this morning.
[2020-06-11 05:04] LABS: Scan Smear per Review Criteria MANUAL DIFF; Total Cells Counted 100 (MANUAL DIFF)
[2020-06-11 05:08] LABS: Neutrophil-Band 0 % (0-5); Neutrophil-Segmented 56 % (47-70)
[2020-06-11 05:09] LABS: Atypical Lymphocyte 1+ %; Lymphocyte 31 % (19-41); Metamyelocyte 5 % (0-1); Monocyte 7 % (0-10); Myelocyte 1 (0-0); Platelet Estimate ADEQUATE (ADEQ)
[2020-06-11 05:10] LABS: Absolute Neutrophil Count 5.4 X10^3/uL (2.0-7.7); Erythrocyte Sedimentation Rate 47 mm/hr (0-30); Neutrophil # 5.43 X10^3/uL (2.7-7.7)
[2020-06-11 05:11] LABS: Platelet Morphology LARGE
[2020-06-11 05:12] LABS: Macrocytosis 1+; Ovalocyte RARE; Polychromasia RARE
--- NOTE | 2020-06-11 06:06 | HP.PCM_ITS ---
Problem List (1) Inability to walk Status: Acute (2) Hematoma of right thigh Status: Acute (3) Warfarin-induced coagulopathy Status: Acute (4) Acute blood loss anemia Status: Acute (5) NIKHIL (acute kidney injury) Status: Acute (6) Primary osteoarthritis of left knee Status: Chronic (7) Compression fracture of T12 vertebra Status: Chronic (8) LBBB (left bundle branch block) Status: Chronic (9) Aortocoronary bypass status Status: Chronic Comment: CABG x6- Sequential SVG in Sequence to the LAD, Descending Diagonal, CX/CX, and RCA/RCA 10/09/02 (10) Atherosclerotic heart disease of [place] coronary artery without angina pectoris Status: Chronic Qualifiers: [place] vs. transplanted heart: [place] heart Qualified Code(s): I25.10 - Atherosclerotic heart disease of [place] coronary artery without angina pectoris (11) Atherosclerosis of coronary artery bypass graft(s), unspecified, with other forms of angina pectoris Status: Chronic Comment: CABG x6- Sequential SVG in Sequence to the LAD, Descending Diagonal, CX/CX, and RCA/RCA 10/09/02 (12) [facility] current use of anticoagulant Status: Chronic (13) Benign hypertension Status: Chronic (14) Obesity Status: Chronic (15) Diabetes mellitus, type 2 Status: Chronic (16) Systolic CHF, chronic Status: Chronic (17) Thromboembolic disorder Status: Chronic (18) Ischemic cardiomyopathy Status: Chronic History of Present Illness Date of Admission: 06/11/20 Chief Complaint: Right hip pain The patient is a 79 year old F with a significant history of compression fracture; ischemic cardiomyopathy who came to the emergency department with a 3- day history of progressively worsening right hip pain. Pain radiates to her right ankle. Resting on the hip aggravated pain. She denies any aggravating factors to the pain. She put a heating pad on her right thigh but that did not actually help her. Reportedly she have a compression fracture on her back and she had a steroid shots in her back. Because of the steroid shot her Coumadin was discontinued. Her Coumadin was later bridged with Lovenox. At emergency department she was found to have dropped her hemoglobin by more than 2 points.. Past Medical History Past Medical History (Chronic Problems): Chronic Problems (Last Reviewed 06/11/20 @ 06:[address] Nam Robertson MD) Primary osteoarthritis of left knee (Chronic) Compression fracture of T12 vertebra (Chronic) LBBB (left bundle branch block) (Chronic) Aortocoronary bypass status (Chronic ~10/09/02) CABG x6- Sequential SVG in Sequence to the LAD, Descending Diagonal, CX/CX, and RCA/RCA 10/09/02 Atherosclerotic heart disease of [place] coronary artery without angina pectoris (Chronic) Atherosclerosis of coronary artery bypass graft(s), unspecified, with other forms of angina pectoris (Chronic) CABG x6- Sequential SVG in Sequence to the LAD, Descending Diagonal, CX/CX, and RCA/RCA 10/09/02 long term current use of anticoagulant (Chronic) Benign hypertension (Chronic) Obesity (Chronic) Diabetes mellitus, type 2 (Chronic) Systolic CHF, chronic (Chronic) Thromboembolic disorder (Chronic) Ischemic cardiomyopathy (Chronic) Medical History: Medical History (Last Reviewed 06/11/20 @ 06:[address] Nam Robertson MD) LBBB (left bundle branch block) (Chronic) I44.7 Atherosclerotic heart disease of [place] coronary artery without angina pectoris (Chronic) I25.10 Atherosclerosis of coronary artery bypass graft(s), unspecified, with other forms of angina pectoris (Chronic) I25.708 CABG x6- Sequential SVG in Sequence to the LAD, Descending Diagonal, CX/CX, and RCA/RCA 10/09/02 Benign hypertension (Chronic) I10 Obesity (Chronic) E66.9 Diabetes mellitus, type 2 (Chronic) E11.9 Systolic CHF, chronic (Chronic) I50.22 Thromboembolic disorder (Chronic) I74.9 Ischemic cardiomyopathy (Chronic) I25.5 Abnormal stress test R94.39 GERD (gastroesophageal reflux disease) K21.9 History of DVT (deep vein thrombosis) Z86.718 History of esophageal stricture Z87.19 History of pulmonary embolism Z86.711 Hyperlipidemia (Inactive) E78.5 Allergies doxycycline Allergy (Mild, Verified 06/10/20 20:15) Swelling Sulfa (Sulfonamide Antibiotics) Allergy (Verified 06/10/20 20:15) Rash tetracycline [Tetracycline] Allergy (Verified 06/10/20 20:15) Swelling dicyclomine Adverse Reaction (Verified 06/10/20 20:15) Other NSAIDS (Non-Steroidal Anti-Inflamma Adverse Reaction (Verified 06/10/20 20:15) Other Penicillins Adverse Reaction (Verified 06/10/20 20:15) Unknown Home Medications: Ambulatory Orders Medication Instructions Recorded Aspirin E.C. [Ecotrin] 81 mg PO DAILY@0800 03/08/17 Calcium Carbonate/Vitamin D3 1 ea PO BID 03/08/17 [Calcium 500-Vit D3 600 Caplet] Gabapentin [Neurontin] 600 mg PO 4X/DAY 03/08/17 Omeprazole [Prilosec] 20 mg PO BID 03/08/17 Cyanocobalamin [Vitamin B12] 500 mcg PO DAILY@0800 12/07/17 Methocarbamol 500 mg PO TID PRN 02/27/19 Ubidecarenone [Coq-10] 100 mg PO DAILY 04/22/19 DiphenhydrAMINE [Benadryl] 25 mg PO QHS 05/28/19 Alendronate Sodium 70 mg PO QWEEK 09/17/19 isosorbide mononitrate 120 mg 120 mg PO DAILY #90 tab 10/10/19 tablet,extended release 24 hr Folic Acid 0.8 mg PO DAILY@0800 11/08/19 furosemide 20 mg tablet 60 mg PO DAILY #270 tab 12/01/19 metoprolol succinate 100 mg 100 mg PO DAILY #90 tab 12/01/19 tablet,extended release 24 hr nitroglycerin 0.4 mg sublingual 0.4 mg SUBLINGUAL Q5-15M PRN #25 12/12/19 tablet tab rosuvastatin 40 mg tablet 40 mg PO DAILY #90 tab 12/13/19 ranolazine 500 mg tablet,extended 500 mg PO BID #180 tab 12/26/19 release,12 hr sacubitril 49 mg-valsartan 51 mg 1 tab PO BID #60 tab 12/26/19 tablet warfarin 3 mg tablet 3 mg PO DAILY #90 tab 01/31/20 warfarin 1 mg tablet 1 mg PO DAILY #90 tab 02/21/20 buprenorphine 7.5 mcg/hour weekly 1 patch TRANSDERMAL Q7D 03/15/20 transdermal patch potassium chloride 10 mEq 10 meq PO BID 03/15/20 capsule,extended release enoxaparin 100 mg/mL subcutaneous 100 mg SC Q12H #10 ml 05/17/20 syringe Surgical History: Surgical History (Last Reviewed 06/11/20 @ 07:[address] Nam Robertson MD) Aortocoronary bypass status (Chronic) Onset Date: ~10/09/02 Z95.1 CABG x6- Sequential SVG in Sequence to the LAD, Descending Diagonal, CX/CX, and RCA/RCA 10/09/02 H/O arthroscopic knee surgery Z98.890 left knee 2001 History of partial knee replacement Z96.659 right History of total hysterectomy Z90.710 History of tubal ligation Z98.51 Hx of bilateral breast reduction surgery Z98.890 Hx of cholecystectomy Z90.49 Surgical History: appendectomy, cholecystectomy, coronary bypass surgery - 2002, hysterectomy, - - Breast reduction, right knee partial replacement, left knee repair, perforated bowel repair. 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 Nam Robertson MD) Mother Myocardial infarction Hypertension Heart disease History of coronary artery bypass graft Brother Hypertension History of coronary artery bypass graft Father Cancer History Items: Heart Disease, Hypertension Paternal Family History: Family History (Last Reviewed 06/11/20 @ 07:[address] Nam Robertson MD) Mother Myocardial infarction Hypertension Heart disease History of coronary artery bypass graft Brother Hypertension History of coronary artery bypass graft Father Cancer History Items: Cancer Review of Systems Constitutional: Denies: Chills, Fever, Weight Change HEENT: Denies: Head Aches, Sinus Congestion, Sinus Drainage Cardiovascular: Reports: Edema - Right hip. Denies: Chest Pain, Palpitations Respiratory: Denies: Cough, Shortness of breath at rest, Sputum production Gastrointestinal: Denies: Abdominal Pain, Nausea, Vomiting Genitourinary: Denies: Dysuria Musculoskeletal: Denies: Joint Pain, Joint Tenderness Skin: Denies: Rash, Wounds Neurological: Denies: Numbness, Tingling, Focal weakness Psychiatric: Denies: Anxiety, Depression, Homicidal Ideations, Suicidal Ideations Hematologic/ Lymphatic: Denies: Easy Bruising, Easy Bleeding VTE Information - Inpt Only VTE Present on Admission: No VTE Mechan Device Prophylaxis: SCD's VTE Pharm Prophylaxis ordered?: No Patient Problems: Active and Suspected Problems (Last Reviewed 06/11/20 @ 06:[address] Nam Robertson MD) Inability to walk (Acute) Hematoma of right thigh (Acute) Warfarin-induced coagulopathy (Acute) Acute blood loss anemia (Acute) NIKHIL (acute kidney injury) (Acute) - Physical Exam Vitals/I&O's: Vital Signs Temp Pulse Resp BP Pulse Ox 98.8 F 118 H 18 160/89 H 98 06/11/20 02:44 06/11/20 02:44 06/11/20 02:44 06/11/20 02:44 06/11/20 02:44 Oxygen Delivery Method Room Air Weight: 94.7 kg Body Mass Index (BMI) 35.8 General: Alert, Oriented x3, Cooperative HEENT: Atraumatic, PERRLA, EOMI, Normocephalic Neck: Supple, No JVD, Negative Carotid Bruits Lungs: Clear to auscultation, Normal air movement Cardiovascular: Regular rate, Normal S1, Normal S2, No murmurs Abdomen: Bowel Sounds Present, Soft, Non Tender Extremities: Capillary Refill Less than 3 Seconds, Edema - Right hip, Tenderness - Right hip, - - Unable to raise right lower extremity. Skin: No rashes, No breakdown Musculoskeletal: No Tenderness to Palpation of Joints or Extremities Neurological: Cranial nerves II-XII grossly intact Psych/Mental Status: Normal Affect, Appropriate Laboratory Results 06/10/20 21:30: WBC 9.0, RBC 2.62 L, Hgb 8.5 L, Hct 27.4 L, MCV 104.6 H, MCH 32.4 H, MCHC 31.0 L, RDW Std Deviation 67.9 H, RDW Coeff of Maty 17.8 H, Plt Count 141 L, Neut % (Auto) Not Reportable, Absolute Neuts (auto) 5.9, Absolute Lymphs (auto) 1.80, Total Counted 100, Neutrophils % (Manual) 53, Band Neutrophils % 13 H, Lymphocytes % (Manual) 20, Monocytes % (Manual) 5, Eo sinophils % (Manual) 1, Metamyelocytes % 6 H, Myelocytes % 2 H, Diff Path Review May , Platelet Estimate SLT DEC, Polychromasia RARE, Hypochromasia 1+, Anisocytosis 1+, Macrocytosis 1+ 06/10/20 21:30: PT 21.1 H, INR 1.9 06/10/20 21:30: Sodium 137, Potassium 4.5, Chloride 104, Carbon Dioxide 27.0, Anion Gap 6, BUN 25 H, Creatinine 1.60 H, Estim Creat Clear Calc 23.81, Est GFR (MDRD) Af Amer 40 L, Est GFR (MDRD) Non-Af 33 L, BUN/Creatinine Ratio 15.6, Glucose 172 H, Calcium 8.8 06/11/20 03:20: WBC 9.7, RBC 2.60 L, Hgb 8.2 L, Hct 27.0 L, MCV 103.8 H, MCH 31.5, MCHC 30.4 L, RDW Std Deviation 67.1 H, RDW Coeff of Maty 17.7 H, Plt Count 150, MPV 13.9 H, Immature Gran % (Auto) CLERICAL DENTIST ASSISTANT, Neut % (Auto) CLERICAL DENTIST ASSISTANT, Lymph % (Auto) CLERICAL DENTIST ASSISTANT, [place] % (Auto) CLERICAL DENTIST ASSISTANT, Eos % (Auto) CLERICAL DENTIST ASSISTANT, Baso % (Auto) CLERICAL DENTIST ASSISTANT, Absolute Neuts (auto) 5.4, Absolute Lymphs (auto) 3.00, Total Counted 100, Neutrophils % (Manual) 56, Band Neutrophils % 0, Lymphocytes % (Manual) 31, Monocytes % (Manual) 7, Metamyelocytes % 5 H, Myelocytes % 1 H, Nucleated RBC % 0.3, Diff Path Review May foll, Atypical Lymphocytes 1+, Platelet Estimate ADEQUATE, Plt Morphology Comment LARGE, Polychromasia RARE, Macrocytosis 1+, Ovalocytes RARE, ESR 47 H 06/11/20 03:20: C-React Prot Ext Range 12.10 H 06/11/20 03:20: Blood Type AB POSITIVE, Antibody Screen NEGATIVE Current Medications Acetaminophen (Acetaminophen 325 Mg Tablet) 650 mg PO Q6H PRN PRN PRN Reason: Pain Score 1-10/Temp > 100.7 F Sodium Chloride () 1,000 mls @ 100 mls/hr IV .Q10H ILYA Last Admin: 06/11/20 02:52 Dose: 100 mls/hr Documented by: Melatonin (Melatonin 3 Mg Tablet) 3 mg PO QHS PRN PRN PRN Reason: INSOMNIA Ondansetron HCl (Ondansetron 4 Mg/2 Ml Vial) 4 mg IV Q8H PRN PRN PRN Reason: NAUSEA/VOMITING Oxycodone HCl (Oxycodone 5 Mg Tablet) 10 mg PO Q4H PRN PRN PRN Reason: Pain Score 6-10 Sodium Chloride (0.9% Saline Lock 10 Ml Syringe) 10 - 40 ml IV UD PRN PRN Reason: SALINE FLUSH Last Admin: 06/11/20 02:52 Dose: 10 ml Documented by: Assessment/Plan All Active Problems (Last Reviewed 06/11/20 @ 06:[address] Nam Robertson MD) Inability to walk (Acute) Hematoma of right thigh (Acute) Warfarin-induced coagulopathy (Acute) Acute blood loss anemia (Acute) NIKHIL (acute kidney injury) (Acute) Right hip pain and swelling Given diagnoses include infection; and hematoma. Review of record showed her on 05/22/2020 hemoglobin was 10.7. On presentation hemoglobin is 8.5. With drop in her hemoglobin by 2.2 point disliking that this may be hematoma. CT of pelvis ordered. Emergent department doctor discussed the case with orthopedic surgeon, Dr. Hernadez who accepted to follow on consult. Orthopedic consult placed. Oxycodone as needed for pain. Tylenol as needed for pain. ESR and CRP ordered. Acute blood loss anemia Hemoglobin on 05/22/2020 was 10.7. He presented hemoglobin 8.5. Suspect hematoma to right hip. CT of pelvis ordered. Received vitamin K at emergency department. Trend INR. Hold Coumadin. Ischemic cardiomyopathy Patient reports outpatient plan of a pacemaker. Stable. NIKHIL on CKD stage III CKD likely secondary to diabetic nephropathy. Creatinine presentation was 1.60. Baseline creatinine is around 1.0. Trend BMP Gentle IV hydration. Creatinine presentation was 1.60 Diabetes mellitus Patient with hyperglycemia on presentation Trend BMP Calorie controlled diet. DVT Prophylaxis SCD ordered. Inpatient E&M: [id number] Init Hosp L3
[2020-06-11] MEDS: oxyCODONE 5 MG Tablet 10 MG PO ×4 (06:52→19:49)
--- NOTE | 2020-06-11 07:45 | PCM.PN.BLA ---
Progress Note 79 year-old female with multiple comorbidities who was admitted with right hip pain believed to be secondary to hematoma. T of the pelvis showed diffuse swelling of the right quadricep muscles suggestive of large hematoma with fluid level. Patient's vitals has been stable. Hemoglobin dropped to 7.3. INR is 1.7, off warfarin, creatinine appears improved Orthopedics surgery consulted In light of ongoing hematoma, will transfuse patient 1 unit of packed RBC Will follow-up on orthopedic recommendations
--- NOTE | 2020-06-11 08:14 | NURSING ---
Dr. Arzola's office called at this time for a home med list.
[2020-06-11] MEDS: Acetaminophen 325 MG Tablet 650 MG PO ×2 (08:26→18:11)
[2020-06-11] MEDS: Ondansetron 4 MG/2 ML Vial IV (10:35)
[2020-06-11 12:09] LABS: Hematocrit 24.7 % (37-47); Hemoglobin 7.7 g/dL (12.0-15.0); POSITIVE MORPHOLOGY YES
[2020-06-11 12:26] LABS: International Normalized Ratio 1.7; Prothrombin Time (Protime)PT. 19.3 SECONDS (11.7-14.9)
[2020-06-11 12:44] LABS: ALB/GLOB Ratio 0.9 RATIO (0.9-2.4); AST(SGOT) 20 U/L (15-37); Alanine Aminotransfer ALT/SGPT 22 U/L (13-56); Albumin, Serum 3.2 g/dL (3.2-5.0); Alkaline Phosphatase 41 U/L (45-117); Anion Gap 7 (5-15); BUN 22 mg/dL (7-18); BUN/Creat Ratio 17.6 RATIO (10-20); Calcium,Total 8.5 mg/dL (8.5-10.1); Chloride 105 mmol/L (98-107); Creatinine, Serum 1.25 mg/dL (0.55-1.02); EST Glomerular Filtration Rate 44 mL/min (>60); Est Glom Filt Rate - Afr Amer 53 mL/min (>60); Estimated Creatinine Clearance 30.48 ml/min; Globulin 3.5 g/dL (2.2-4.2); Glucose 132 mg/dL (74-106); Potassium 4.1 mmol/L (3.5-5.1); Protein, Total 6.7 g/dL (6.4-8.2); Sodium Level 136 mmol/L (136-145)
--- NOTE | 2020-06-11 13:25 | CASEMGMT ---
RN [facility] [employer] PROGRAM COORDINATOR CM to room to meet with patient for initial transition planning/care coordination assessment. KIRIT QUAN introduced self and role at [facility]. Pt voices understanding and consents to assessment at this time. Pt resting in bed in no distress at this time. Pt is A/O at this time and answers all questions appropriately. Care providers, pharmacy, and demographics verified/updated at this time. PCP: Dr Arzola Specialists: Dr Patricia--cardiology, Dr Encarnacion--pain mgt Pref[facility] Pharmacy[facility] Benef[facility]: Yes Living Will/HPOA: has not completed these yet, stating, My assistant county attorney is working on this LNOK: , [place]. 2 daughters: Eugenie and Michelle Living Arrangements: Lives w/her and daughter, Michelle, in one-story home w/2 steps to enter. Pt able to dress herself, but /dtr assist w/bathing. /dtr also do all home mgmt tasks. Dtr manages all medications. Transportation: Daughter, Michelle, and . DME: has the following DME: shower chair, grab bars, lift chair, hospital bed, walker, glucometer. O2 @ 3 L/M via [place] w/activity through [employer]. Call placed to [employer] and this was confirmed. Pt states no need for further DME at this time. HHC/SNF: Hx of [facility] and pt states is active w/[facility]. Call placed to [facility]. They state pt was d/c'd from [facility] in 05/08. Pt made aware. Pt has been very painful and unable to tolerate sitting/standing w/therapy d/t the pain. Pt wishes to discharge home w/family support if able. She states if she is unable to, she may be agreeable to SNF, but does not want to return to [facility], does not want [facility] or [place]. She states her 1st choices is the one on [address], [facility], made aware. She states if she is able to return home, she would like [facility] again. PLAN: TBD. SNF vs Home w/HHC. Follow PT/OT. Thompson ANNE RN, CM
[2020-06-11 14:28] LABS: Pathologist Review Reviewed
[2020-06-11 14:30] LABS: Pathologist Review Reviewed
[2020-06-11 16:14] LABS: Hematocrit 23.7 % (37-47); Hemoglobin 7.3 g/dL (12.0-15.0); POSITIVE MORPHOLOGY YES
[2020-06-11] MEDS: Ferrous Sulfate 325 MG Tablet PO (17:29)
[2020-06-11] MEDS: Calcium Carb/Vitamin D 1 TABLET Tablet PO (17:29)
[2020-06-11] MEDS: Gabapentin 600 MG Tablet PO ×2 (17:30→21:27)
[2020-06-11] MEDS: Cyanocobalamin 500 MCG Tablet PO (17:30)
[2020-06-11] MEDS: DiphenhydrAMINE 25 MG Capsule PO (18:10)
[2020-06-11] MEDS: SACUBITRIL/VALSARTAN 49-51 MG TABLET 1 EACH PO (21:26)
[2020-06-11] MEDS: Ranolazine 500 MG Tablet PO (21:26)
[2020-06-11] MEDS: Atorvastatin Calcium 80 MG Tablet PO (21:26)
[2020-06-11] MEDS: Methocarbamol 500 MG Tablet PO (21:27)
[2020-06-11] MEDS: Pantoprazole Sodium 20 MG Tablet PO (21:27)
[2020-06-11] MEDS: MELATONIN 3 MG TABLET PO (21:38)
--- NOTE | 2020-06-11 22:07 | NURSING ---
Order to clarify pt's home medication But[place] patch. Pt states she was instructed by her doctor not to take with other pain medications. She decided she will begin this medication when home after discharge. Hospitalist aware of pt's decision, medication discontinued for hospital stay.
[2020-06-12] VITALS (8 sets, daily range): BP systolic 95–106; BP diastolic 42–59; PULSE 98–114; RESP 16–18; TEMP 36.4–37.7; O2SAT 95–98
[2020-06-12] MEDS: 0.9% Normal Saline 1,000 ML 100 ML IV (02:13)
[2020-06-12] MEDS: oxyCODONE 5 MG Tablet 10 MG PO ×2 (02:13→06:47)
[2020-06-12 06:42] LABS: ALB/GLOB Ratio 0.8 RATIO (0.9-2.4); AST(SGOT) 30 U/L (15-37); Alanine Aminotransfer ALT/SGPT 20 U/L (13-56); Albumin, Serum 2.6 g/dL (3.2-5.0); Alkaline Phosphatase 29 U/L (45-117); Anion Gap 6 (5-15); BUN 15 mg/dL (7-18); BUN/Creat Ratio 18.1 RATIO (10-20); Calcium,Total 8.3 mg/dL (8.5-10.1); Chloride 109 mmol/L (98-107); Creatinine, Serum 0.83 mg/dL (0.55-1.02); EST Glomerular Filtration Rate 70 mL/min (>60); Est Glom Filt Rate - Afr Amer 85 mL/min (>60); Globulin 3.1 g/dL (2.2-4.2); Glucose 115 mg/dL (74-106); Potassium 4.7 mmol/L (3.5-5.1); Protein, Total 5.7 g/dL (6.4-8.2); Sodium Level 137 mmol/L (136-145)
[2020-06-12 07:07] LABS: International Normalized Ratio 1.3; Prothrombin Time (Protime)PT. 15.5 SECONDS (11.7-14.9)
--- NOTE | 2020-06-12 07:14 | CON.PCM_ITS ---
Reason for Consult Date of Consultation: 06/12/20 Reason for Consultation: requested by dr issa. Right thigh pain History of Present Illness: The patient is a 79 year old F with history of treatment with Coumadin. Presents today with right thigh pain Right thigh pain started Wednesday. Culminated with significant pain on Wednesday. Saw her PCP on Wednesday. Presented late Wednesday evening to the emergency department. 8/10 pain with knee flexion. Improved with rest and extension. Currently having INR reversed. Patient notes that it does not seem to have significantly worsened since her admission to the hospital. Hemoglobin has been stable since admission to the hospital. No fevers chills or night sweats. No redness around the thigh. Difficulty with weightbearing. Past Medical History Past Medical History (Chronic Problems): Chronic Problems (Last Reviewed 06/11/20 @ 06:[address] 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 Nam Robertson MD) LBBB (left bundle branch block) (Chronic) I44.7 Atherosclerotic heart disease of [place] coronary artery without angina pectoris (Chronic) I25.10 Atherosclerosis of coronary artery bypass graft(s), unspecified, with other forms of angina pectoris (Chronic) I25.708 CABG x6- Sequential SVG in Sequence to the LAD, Descending Diagonal, CX/CX, and RCA/RCA 10/09/02 Benign hypertension (Chronic) I10 Obesity (Chronic) E66.9 Diabetes mellitus, type 2 (Chronic) E11.9 Systolic CHF, chronic (Chronic) I50.22 Thromboembolic disorder (Chronic) I74.9 Ischemic cardiomyopathy (Chronic) I25.5 Abnormal stress test R94.39 GERD (gastroesophageal reflux disease) K21.9 History of DVT (deep vein thrombosis) Z86.718 History of esophageal stricture Z87.19 History of pulmonary embolism Z86.711 Hyperlipidemia (Inactive) E78.5 Allergies doxycycline Allergy (Mild, Verified 06/10/20 20:15) Swelling Sulfa (Sulfonamide Antibiotics) Allergy (Verified 06/10/20 20:15) Rash tetracycline [Tetracycline] Allergy (Verified 06/10/20 20:15) Swelling dicyclomine Adverse Reaction (Verified 06/10/20 20:15) Other NSAIDS (Non-Steroidal Anti-Inflamma Adverse Reaction (Verified 06/10/20 20:15) Other Penicillins Adverse Reaction (Verified 06/10/20 20:15) Unknown Home Medications: Ambulatory Orders Medication Instructions Recorded Aspirin E.C. [Ecotrin] 81 mg PO DAILY@0800 03/08/17 Calcium Carbonate/Vitamin D3 1 ea PO BID 03/08/17 [Calcium 500-Vit D3 600 Caplet] Gabapentin [Neurontin] 600 mg PO 4X/DAY 03/08/17 Omeprazole [Prilosec] 20 mg PO BID 03/08/17 Cyanocobalamin [Vitamin B12] 500 mcg PO DAILY@0800 12/07/17 Methocarbamol 500 mg PO BID 02/27/19 DiphenhydrAMINE [Benadryl] 25 mg PO QHS 05/28/19 Alendronate Sodium 70 mg PO QWEEK 09/17/19 isosorbide mononitrate 120 mg 120 mg PO DAILY #90 tab 10/10/19 tablet,extended release 24 hr Folic Acid 0.8 mg PO DAILY@0800 11/08/19 metoprolol succinate 100 mg 100 mg PO DAILY #90 tab 12/01/19 tablet,extended release 24 hr nitroglycerin 0.4 mg sublingual 0.4 mg SUBLINGUAL Q5-15M PRN #25 12/12/19 tablet tab warfarin 3 mg tablet 3 mg PO DAILY #90 tab 01/31/20 warfarin 1 mg tablet 1 mg PO DAILY #90 tab 02/21/20 buprenorphine 7.5 mcg/hour weekly 1 patch TRANSDERMAL Q7D 03/15/20 transdermal patch potassium chloride 10 mEq 10 meq PO BID 03/15/20 capsule,extended release enoxaparin 100 mg/mL subcutaneous 100 mg SC Q12H #10 ml 05/17/20 syringe Ferrous Sulfate 325 mg PO BIDCM 06/11/20 Furosemide [Lasix] 60 mg PO DAILY 06/11/20 Losartan Potassium [Cozaar] 100 mg PO DAILY 06/11/20 Ranolazine [Ranolazine ER] 500 mg PO BID 06/11/20 Rosuvastatin Calcium 40 mg PO DAILY 06/11/20 Sacubitril/Valsartan 49-51 mg 1 tab PO BID 06/11/20 [Entresto 49 mg-51 mg Tablet] Ubidecarenone [Co Q-10] 10 mg PO DAILY 06/11/20 Surgical History: Surgical History (Last Reviewed 06/11/20 @ 07:[address] Nam Robertson MD) Aortocoronary bypass status (Chronic) Onset Date: ~10/09/02 Z95.1 CABG x6- Sequential SVG in Sequence to the LAD, Descending Diagonal, CX/CX, a nd RCA/RCA 02 H/O arthroscopic knee surgery Z98.890 left knee 2001 History of partial knee replacement Z96.659 right History of total hysterectomy Z90.710 History of tubal ligation Z98.51 Hx of bilateral breast reduction surgery Z98.890 Hx of cholecystectomy Z90.49 Surgical History: appendectomy, cholecystectomy, coronary bypass surgery - 2002, hysterectomy, - - Breast reduction, right knee partial replacement, left knee repair, perforated bowel repair. kyphoplasty Psychiatric History: No pertinent psych hx BLUNGER History: No pertinent BLUNGER history Lives: With Family Smoking Status: Never smoker - *Family History Maternal Family History: Family History (Last Reviewed 06/11/20 @ 07:[address] Nam Robertson MD) Mother Myocardial infarction Hypertension Heart disease History of coronary artery bypass graft Brother Hypertension History of coronary artery bypass graft Father Cancer History Items: Heart Disease, Hypertension Paternal Family History: Family History (Last Reviewed 06/11/20 @ 07:[address] Nam Robertson MD) Mother Myocardial infarction Hypertension Heart disease History of coronary artery bypass graft Brother Hypertension History of coronary artery bypass graft Father Cancer History Items: Cancer Review of Systems Constitutional: Denies: Chills, Fever, Weight Change HEENT: Denies: Head Aches, Sinus Congestion, Sinus Drainage Cardiovascular: Denies: Chest Pain, Palpitations Respiratory: Denies: Cough, Shortness of breath at rest, Sputum production Gastrointestinal: Denies: Abdominal Pain, Nausea, Vomiting Genitourinary: Denies: Dysuria Musculoskeletal: Reports: Joint Pain, - - Thigh pain, thigh swelling. Denies: Joint Tenderness Skin: Denies: Rash, Wounds Neurological: Denies: Numbness, Tingling, Focal weakness Psychiatric: Denies: Anxiety, Depression, Homicidal Ideations, Suicidal Ideations Hematologic/ Lymphatic: Denies: Easy Bruising, Easy Bleeding Patient Problems: Active and Suspected Problems (Last Reviewed 06/11/20 @ 06:[address] Nam Robertson MD) Inability to walk (Acute) Hematoma of right thigh (Acute) Warfarin-induced coagulopathy (Acute) Acute blood loss anemia (Acute) NIKHIL (acute kidney injury) (Acute) Objective: Right femur and knee x-rays were reviewed showing a well aligned femur, no acute fractures. No bony lesions. Patient does have a medial compartment partial knee replacement of the right knee. Venous Doppler performed does show fluid collection in the lateral thigh CT scan also reveals a hematoma appearing fluid collection with fluid fluid levels in the right vastus lateralis. - Physical Exam Vitals/I&O's: Vital Signs Temp Pulse Resp BP Pulse Ox 98 F 102 H 18 102/59 L 98 06/12/20 02:09 06/12/20 02:09 06/12/20 02:09 06/12/20 02:09 06/12/20 02:09 Oxygen Delivery Method Room Air Weight: 208 lb 12.444 oz Body Mass Index (BMI) 35.8 Intake and Output for Last 24 Hours 06/10/20 06/11/20 06/12/20 23:59 23:59 23:59 Intake Total 2838.33 / 2838.33 661.67 / 661.67 Output Total 800 / 800 350 / 350 Balance 2038.33 / 2038.33 311.67 / 311.67 General: Alert, Oriented x3, Cooperative HEENT: Atraumatic Neck: No JVD Abdomen: Non-Distended Extremities: - - Right lower extremity shows swelling of the thigh with tenderness palpation in this area. In addition patient has pain with knee flexion in the quadriceps. Palpable pulses distally. Sensations intact light touch saphenous, sural, superficial peroneal, deep peroneal and tibial nerve distributions Neurological: Cranial nerves II-XII grossly intact Psych/Mental Status: Normal Affect Laboratory Results 06/10/20 21:30: Diff Path Review Reviewed 06/11/20 03:20: Diff Path Review Reviewed 06/11/20 03:20: Crossmatch See Detail 06/11/20 11:50: Hgb 7.7 L, Hct 24.7 L 06/11/20 11:50: Sodium 136, Potassium 4.1, Chloride 105, Carbon Dioxide 24.0, Anion Gap 7, BUN 22 H, Creatinine 1.25 H, Estim Creat Clear Calc 30.48, Est GFR (MDRD) Af Amer 53 L, Est GFR (MDRD) Non-Af 44 L, BUN/Creatinine Ratio 17.6, Glucose 132 H, Calcium 8.5, Total Bilirubin 0.50, AST 20, ALT 22, Alkaline Phosphatase 41 L, Total Protein 6.7, Albumin 3.2, Globulin 3.5, Albumin/Globulin Ratio 0.9 06/11/20 11:50: PT 19.3 H, INR 1.7 06/11/20 16:06: Hgb 7.3 L, Hct 23.7 L 06/12/20 05:50: Sodium 137, Potassium 4.7, Chloride 109 H, Carbon Dioxide 22.0, Anion Gap 6, BUN 15, Creatinine 0.83, Estim Creat Clear Calc 45.90, Est GFR (MDRD) Af Amer 85, Est GFR (MDRD) Non-Af 70, BUN/Creatinine Ratio 18.1, Glucose 115 H, Calcium 8.3 L, Total Bilirubin 0.90, AST 30, ALT 20, Alkaline Phosphatase 29 L, Total Protein 5.7 L, Albumin 2.6 L, Globulin 3.1, Albumin/Globulin Ratio 0.8 L 06/12/20 05:50: WBC Cancelled, Corrected WBC Cancelled, RBC Cancelled, Hgb Cancelled, Hct Cancelled, MCV Cancelled, MCH Cancelled, MCHC Cancelled, RDW Std Deviation Cancelled, RDW Coeff of Maty Cancelled, Plt Count Cancelled, MPV Cancelled, Immature Gran % (Auto) Cancelled, Neut % (Auto) Cancelled, Lymph % (Auto) Cancelled, [place] % (Auto) Cancelled, Eos % (Auto) Cancelled, Baso % (Auto) Cancelled, Absolute Neuts (auto) Cancelled, Absolute Lymphs (auto) Cancelled, Total Counted Cancelled, Neutrophils % (Manual) Cancelled, Band Neutrophils % Cancelled, Lymphocytes % (Manual) Cancelled, Monocytes % (Manual) Cancelled, Eosinophils % (Manual) Cancelled, Basophils % (Manual) Cancelled, Metamyelocytes % Cancelled, Myelocytes % Cancelled, Promyelocytes % Cancelled, Blast Cells % Cancelled, Plasma Cell % (Manual) Cancelled, Other Cells % Cancelled, Nucleated RBC % Cancelled, Nucleated RBCs/100 WBC Cancelled, Differential Comment Cancelled, Diff Path Review Cancelled, Hypersegmented Neuts Cancelled, Atypical Lymphocytes Cancelled, Reactive Lymphocytes Cancelled, Smudge Cells Cancelled, Toxic Granulation Cancelled, Toxic Vacuolation Cancelled, Dohle Bodies Cancelled, Dinesh Rods Cancelled, Platelet Estimate Cancelled, Plt Morphology Comment Cancelled, RBC Morphology Cancelled, Polychromasia Cancelled, Hypochromasia Cancelled, Poikilocytosis Cancelled, Basophilic Stippling Cancelled, Anisocytosis Cancelled, Microcytosis Cancelled, Macrocytosis Cancelled, Spherocytes Cancelled, Sickle Cells Cancelled, Target Cells Cancelled, Tear Drop Cells Cancelled, Ovalocytes Cancelled, Stomatocytes Cancelled, [place] Bodies Cancelled, Gurwinder Cells Cancelled, Bite Cells Cancelled, Crenated Cell Cancelled, Acanthocytes (Spur) Cancelled, Rouleaux Cancelled, Schistocytes Cancelled 06/12/20 06:22: PT 15.5 H, INR 1.3 Current Medications Acetaminophen (Acetaminophen 325 Mg Tablet) 650 mg PO Q6H PRN PRN PRN Reason: Pain Score 1-10/Temp > 100.7 F Last Admin: 06/11/20 18:11 Dose: 650 mg Documented by: Aspirin (Aspirin E.C. 81 Mg Tablet) 81 mg PO DAILY@0800 [facility] Atorvastatin Calcium (Atorvastatin Calcium 80 Mg Tablet) 80 mg PO QHS [facility] Last Admin: 06/11/20 21:26 Dose: 80 mg Documented by: Calcium/Vitamin D (Calcium Carb/Vitamin D 1 Tablet Tablet) [facility] Last Admin: 06/11/20 17:29 Dose: 1 tablet Documented by: Cyanocobalamin (Cyanocobalamin 500 Mcg Tablet) 500 mcg PO DAILY@0800 [facility] Last Admin: 06/11/20 17:30 Dose: 500 mcg Documented by: Diphenhydramine HCl (Diphenhydramine 25 Mg Capsule) 25 mg PO QHS [facility] Last Admin: 06/11/20 18:10 Dose: 25 mg Documented by: Ferrous Sulfate (Ferrous Sulfate 325 Mg Tablet) 325 mg PO BID@1200,1700 [facility] Last Admin: 06/11/20 17:29 Dose: 325 mg Documented by: Folic Acid (Folic Acid 1 Mg Tablet) 1 mg PO DAILY@0800 [facility] Furosemide (Furosemide 40 Mg Tablet) 60 mg PO DAILY [facility] Gabapentin (Gabapentin 600 Mg Tablet) 600 mg PO 4X/DAY [facility] Last Admin: 06/11/20 21:27 Dose: 600 mg Documented by: Sodium Chloride () 1,000 mls @ 100 mls/hr IV .Q10H [facility] Last Admin: 06/12/20 02:13 Dose: 100 mls/hr Documented by: Isosorbide Mononitrate (Isosorbide Mononitrate 120 Mg Tablet) 120 mg PO DAILY [facility] Last Admin: 06/11/20 17:28 Dose: 120 mg Documented by: Melatonin (Melatonin 3 Mg Tablet) 3 mg PO QHS PRN PRN PRN Reason: INSOMNIA Last Admin: 06/11/20 21:38 Dose: 3 mg Documented by: Methocarbamol (Methocarbamol 500 Mg Tablet) 500 mg PO BID [facility] Last Admin: 06/11/20 21:27 Dose: 500 mg Documented by: Metoprolol Succinate (Metoprolol(Xl)Succ 100 Mg Tablet) 100 mg PO DAILY [facility] Ondansetron HCl (Ondansetron 4 Mg/2 Ml Vial) 4 mg IV Q8H PRN PRN PRN Reason: NAUSEA/VOMITING Last Admin: 06/11/20 10:35 Dose: 4 mg Documented by: Oxycodone HCl (Oxycodone 5 Mg Tablet) 10 mg PO Q4H PRN PRN PRN Reason: Pain Score 6-10 Last Admin: 06/12/20 06:47 Dose: 10 mg Documented by: Pantoprazole Sodium (Pantoprazole Sodium 20 Mg Tablet) 20 mg PO BID [facility] Last Admin: 06/11/20 21:27 Dose: 20 mg Documented by: Potassium Chloride (Potassium Chloride 10 Meq Tablet) [facility] Last Admin: 06/11/20 17:29 Dose: 10 meq Documented by: Ranolazine (Ranolazine 500 Mg Tablet) 500 mg PO BID [facility] Last Admin: 06/11/20 21:26 Dose: 500 mg Documented by: Sacubitril/Valsartan (Sacubitril/Valsartan 49-51 Mg Tablet) 1 each PO BID [facility] Last Admin: 06/11/20 21:26 Dose: 1 each Documented by: Sodium Chloride (0.9% Saline Lock 10 Ml Syringe) 10 - 40 ml IV UD PRN PRN Reason: SALINE FLUSH Last Admin: 06/11/20 21:28 Dose: 10 ml Documented by: Assessment/Plan All Active Problems (Last Reviewed 06/11/20 @ 06:[address] Nam Robertson MD) Inability to walk (Acute) Hematoma of right thigh (Acute) Warfarin-induced coagulopathy (Acute) Acute blood loss anemia (Acute) NIKHIL (acute kidney injury) (Acute) Large right thigh hematoma. At this point I discussed the natural history of the disease process and treatment options with the patient. Patient's hematoma is not causing any neurologic or vascular deficits. At this time I recommended clinical monitoring. Patient's hemoglobin has been stable since admission. Also think the patient would benefit from a knee immobilizer limiting flexion of the knee for comfort reasons. She should continue with physical therapy. I would make sure her INR is below therapeutic levels until we can verify the stability of his hematoma which will be done clinically. I would recommend a knee immobilizer for 2 weeks. I did discuss the patient that not participating in physical therapy can lead to deconditioning which was significantly prolonged for recovery. We did discuss that there are risks and benefits of continuing anticoagulation ultimately this will be a discussion with her primary care physician. Please call orthopedics for any further questions. Patient to be weightbearing as tolerated her knee immobilizer. [facility] Office:
[2020-06-12 08:40] LABS: Hematocrit 23.6 % (37-47); Hemoglobin 7.2 g/dL (12.0-15.0); Mean Corp Hgb Conc 30.5 g/dL (32-36); Mean Corpuscular Hgb 28.7 pg (27.0-32.0); POSITIVE COUNT YES; POSITIVE MORPHOLOGY YES; Platelet Count 106 K/mm3 (150-450); Red Blood Count 2.51 M/mm3 (4.2-5.4); White Blood Count 7.9 K/mm3 (4.4-11.0)
[2020-06-12 08:43] LABS: Differential Indicated MANUAL DIFF
[2020-06-12 09:15] LABS: Eosinophil 1 % (0-5); Lymphocyte 30 % (19-41); Metamyelocyte 1 % (0-1); Monocyte 11 % (0-10); Myelocyte 1 (0-0); Neutrophil-Band 2 % (0-5); Neutrophil-Segmented 54 % (47-70); Total Cells Counted 100 (MANUAL DIFF)
[2020-06-12 09:16] LABS: Anisocytosis 3+; Macrocytosis 1+; Microcytosis 2+; Platelet Estimate SLT DEC (ADEQ); Platelet Morphology LARGE
[2020-06-12 09:17] LABS: Absolute Lymphocyte Count 2.37 X10^3/uL (0.83-4.51); Absolute Neutrophil Count 4.4 X10^3/uL (2.0-7.7)
[2020-06-12] MEDS: Furosemide 40 MG Tablet 60 MG PO (10:01)
[2020-06-12] MEDS: Gabapentin 600 MG Tablet PO ×4 (10:02→21:59)
[2020-06-12] MEDS: Folic Acid 1 MG Tablet PO (10:02)
[2020-06-12] MEDS: Aspirin E.C. 81 MG Tablet PO (10:02)
[2020-06-12] MEDS: SACUBITRIL/VALSARTAN 49-51 MG TABLET 1 EACH PO ×2 (10:02→21:59)
[2020-06-12] MEDS: Methocarbamol 500 MG Tablet PO ×2 (10:03→21:59)
[2020-06-12] MEDS: Pantoprazole Sodium 20 MG Tablet PO ×2 (10:03→21:59)
[2020-06-12] MEDS: Calcium Carb/Vitamin D 1 TABLET Tablet PO ×2 (10:03→16:56)
[2020-06-12] MEDS: Ranolazine 500 MG Tablet PO ×2 (10:03→21:58)
[2020-06-12] MEDS: Metoprolol(XL)Succ 100 MG Tablet PO (10:03)
[2020-06-12] MEDS: Cyanocobalamin 500 MCG Tablet PO (10:03)
--- NOTE | 2020-06-12 10:24 | CASEMGMT ---
Addendum entered by Mercy French 06/12/20 11:29: SW received message from Tata at [facility] stating [employer] is not in contract with [facility] but sometimes pt's out of network benefits are able to pay for pt to admit to [facility] and then Tata states that at this time, [facility] has no beds available. SW updated that PT is recommending SNF as pt would not be able to do steps at home. SW in to speak with pt. SW introduced self and role at [facility]. SW provided pt with list of SNF that accept pt's insurances. SW updated pt that [facility] has no beds available. Pt agreeable to [facility]. NOE explained that this worker would have to check on bed availability for [facility] and encouraged pt to have a second choice for SNF. Pt states check with TCU I have no second choice. NOE placed a call to Katharine in TCU and provided referral. Katharine states TCU will have a bed Wednesday. NOE provided referral to Katharine. Katharine states she will review referral. NOE updated pt that TCU would have a bed available on Wednesday. Pt agreeable to [facility]. NOE explained pre-cert process. Pt attempted to call her daughter to update, no answer. SW offered to pt that this worker can call pt's daughter to update and pt denied. Plan: TCU pending acceptance and pre-cert Original Note: Social Work Note Pt may need SNF at discharge. SW reviewed notes, if SNF is needed pt preferred the one on [facility] which is [facility]. SW reviewed [employer]'s SNF list, [facility] is not listed as a contracted facility with [employer]. NOE placed a call to [facility] and left message for Tata to confirm if [facility] does or does not take [employer] insurance. SW waiting for call back. Mercy French [employer]EP CLIPPER, PROGRAM ATTENDANT
[2020-06-12] MEDS: Ferrous Sulfate 325 MG Tablet PO ×2 (11:39→16:57)
[2020-06-12 14:59] LABS: Hematocrit 23.9 % (37-47); Hemoglobin 7.3 g/dL (12.0-15.0)
[2020-06-12 18:16] LABS: Iron 75 ug/dL (50-170); Iron Binding Capacity,Total 369 ug/dL (250-450); PERCENT IRON SATURATION 20.3 % (15.0-55.0)
[2020-06-12] MEDS: DiphenhydrAMINE 25 MG Capsule PO (21:59)
[2020-06-12] MEDS: Atorvastatin Calcium 80 MG Tablet PO (21:59)
[2020-06-13] VITALS (16 sets, daily range): BP systolic 93–113; BP diastolic 38–77; PULSE 83–139; RESP 16–18; TEMP 36.4–37.6; O2SAT 92–98
[2020-06-13] MEDS: oxyCODONE 5 MG Tablet 10 MG PO (02:43)
[2020-06-13 06:07] LABS: International Normalized Ratio 1.2; Prothrombin Time (Protime)PT. 15.1 SECONDS (11.7-14.9)
[2020-06-13 06:14] LABS: ALB/GLOB Ratio 0.8 RATIO (0.9-2.4); AST(SGOT) 39 U/L (15-37); Alanine Aminotransfer ALT/SGPT 20 U/L (13-56); Albumin, Serum 2.4 g/dL (3.2-5.0); Alkaline Phosphatase 32 U/L (45-117); Anion Gap 5 (5-15); BUN 12 mg/dL (7-18); BUN/Creat Ratio 14.6 RATIO (10-20); Calcium,Total 8.1 mg/dL (8.5-10.1); Chloride 104 mmol/L (98-107); Creatinine, Serum 0.82 mg/dL (0.55-1.02); EST Glomerular Filtration Rate 71 mL/min (>60); Est Glom Filt Rate - Afr Amer 86 mL/min (>60); Estimated Creatinine Clearance 46.46 ml/min; Globulin 3.1 g/dL (2.2-4.2); Glucose 102 mg/dL (74-106); Potassium 4.5 mmol/L (3.5-5.1); Protein, Total 5.5 g/dL (6.4-8.2); Sodium Level 137 mmol/L (136-145)
[2020-06-13 07:15] LABS: Hematocrit 20.3 % (37-47); Hemoglobin 6.3 g/dL (12.0-15.0); Mean Corpuscular Hgb 28.9 pg (27.0-32.0); Mean Corpuscular Volume 93.1 fL (81-99); POSITIVE COUNT YES; POSITIVE DIFFERENTIAL YES; POSITIVE MORPHOLOGY YES; Platelet Count 113 K/mm3 (150-450); Red Blood Count 2.18 M/mm3 (4.2-5.4); White Blood Count 7.9 K/mm3 (4.4-11.0)
[2020-06-13 07:16] LABS: Absolute Neutrophil Count 4.8 X10^3/uL (2.0-7.7); Differential Indicated MANUAL DIFF; Lymphocyte 29 % (19-41); Metamyelocyte 5 % (0-1); Monocyte 10 % (0-10); Neutrophil-Band 7 % (0-5); Neutrophil-Segmented 54 % (47-70); Total Cells Counted 100 (MANUAL DIFF)
[2020-06-13 07:17] LABS: Hypochromasia 2+; Microcytosis 1+; Ovalocyte 1+; Platelet Estimate MOD DEC (ADEQ); Polychromasia 1+
[2020-06-13 07:18] LABS: Anisocytosis 3+
--- NOTE | 2020-06-13 07:22 | PN_ITS ---
Patient Problems: Active and Suspected Problems (Last Reviewed 06/11/20 @ 06:[address] Nam Robertson MD) Inability to walk (Acute) Hematoma of right thigh (Acute) Warfarin-induced coagulopathy (Acute) Acute blood loss anemia (Acute) NIKHIL (acute kidney injury) (Acute) Reason for Visit: Follow-up on acute blood loss anemia/right thigh hematoma. Subjective: Shunt was seen and examined. Complains of pain in her right eye. She has a knee immobilizer on. Denied dizziness or palpitation. Hemoglobin has dropped to 6.3, she will be transfused 2 units of packed RBC. Objective: Physical exam: General: Alert, Oriented x3, Cooperative, No apparent distress, - - Not on oxygen, morbidly obese HEENT: Atraumatic, PERRLA, EOMI, Normocephalic Oral: Moist Mucosa Neck: Supple Lungs: Diminished Cardiovascular: Regular rate, Regular Rhythm, Normal S1, Normal S2, No murmurs Abdomen: Bowel Sounds Present, Soft, Non Tender, Non-Distended, No Hepato- splenomegaly Extremities: No edema Skin: No rashes Musculoskeletal: No Tenderness to Palpation of Joints or Extremities Lymphatic: No Cervical, Supraclavicular, or Inguinal Adenopathy Neurological: Cranial nerves II-XII grossly intact, Neuro grossly intact Psych/Mental Status: Normal Affect, Appropriate Vitals/I&O's: Vital Signs Temp Pulse Resp BP Pulse Ox 98.2 F 87 16 113/43 L 92 06/13/20 02:29 06/13/20 02:29 06/13/20 02:29 06/13/20 02:29 06/13/20 02:29 Oxygen Delivery Method Room Air Weight: 94.7 kg Body Mass Index (BMI) 35.8 Intake and Output for Last 24 Hours 06/11/20 06/12/20 06/13/20 23:59 23:59 23:59 Intake Total 2838.33 / 2838.33 2451.67 / 2451.67 300 / 300 Output Total 800 / 800 1300 / 1300 800 / 800 Balance 2038.33 / 2038.33 1151.67 / 1151.67 -500 / -500 Laboratory Results 06/12/20 05:50: Iron 75, TIBC 369, Iron Saturation 20.3 06/12/20 08:24: WBC 7.9, RBC 2.51 L, Hgb 7.2 L, Hct 23.6 L, MCV 94.0 D, MCH 28.7, MCHC 30.5 L, RDW Std Deviation Not Reportable, RDW Coeff of Maty Not Reportable, Plt Count 106 L, Neut % (Auto) Not Reportable, Absolute Neuts (auto) 4.4, Absolute Lymphs (auto) 2.37, Total Counted 100, Neutrophils % (Manual) 54, Band Neutrophils % 2, Lymphocytes % (Manual) 30, Monocytes % (Manual) 11 H, Eosinophils % (Manual) 1, Metamyelocytes % 1, Myelocytes % 1 H, Diff Path Review May mary, Platelet Estimate SLT DEC, Plt Morphology Comment LARGE, Anisocytosis 3+, Microcytosis 2+, Macrocytosis 1+ 06/12/20 14:27: Hgb 7.3 L, Hct 23.9 L 06/12/20 19:07: COVID-19 (DAREK) Not Detected 06/13/20 05:10: PT 15.1 H, INR 1.2 06/13/20 05:10: WBC 7.9, RBC 2.18 L, Hgb 6.3 L, Hct 20.3 L, MCV 93.1, MCH 28.9, MCHC 31.0 L, RDW Std Deviation Not Reportable, RDW Coeff of Maty Not Reportable, Plt Count 113 L, Neut % (Auto) Not Reportable, Absolute Neuts (auto) 4.8, Absolute Lymphs (auto) 2.30, Total Counted 100, Neutrophils % (Manual) 54, Band Neutrophils % 7 H, Lymphocytes % (Manual) 29, Monocytes % (Manual) 10, Metamyelocytes % 5 H, Diff Path Review May mary, Platelet Estimate MOD DEC, Polychromasia 1+, Hypochromasia 2+, Anisocytosis 3+, Microcytosis 1+, Ovalocytes 1+ 06/13/20 05:10: Sodium 137, Potassium 4.5, Chloride 104, Carbon Dioxide 28.0, Anion Gap 5, BUN 12, Creatinine 0.82, Estim Creat Clear Calc 46.46, Est GFR (MDRD) Af Amer 86, Est GFR (MDRD) Non-Af 71, BUN/Creatinine Ratio 14.6, Glucose 102, Calcium 8.1 L, Total Bilirubin 0.90, AST 39 H, ALT 20, Alkaline Phosphatase 32 L, Total Protein 5.5 L, Albumin 2.4 L, Globulin 3.1, Albumin/Globulin Ratio 0.8 L Current Medications Acetaminophen (Acetaminophen 325 Mg Tablet) 650 mg PO Q6H PRN PRN PRN Reason: Pain Score 1-10/Temp > 100.7 F Last Admin: 06/11/20 18:11 Dose: 650 mg Documented by: Aspirin (Aspirin E.C. 81 Mg Tablet) 81 mg PO DAILY@0800 [facility] Last Admin: 06/12/20 10:02 Dose: 81 mg Documented by: Atorvastatin Calcium (Atorvastatin Calcium 80 Mg Tablet) 80 mg PO QHS [facility] Last Admin: 06/12/20 21:59 Dose: 80 mg Documented by: Calcium/Vitamin D (Calcium Carb/Vitamin D 1 Tablet Tablet) 1 tablet PO BIDCM [facility] Last Admin: 06/12/20 16:56 Dose: 1 tablet Documented by: Cyanocobalamin (Cyanocobalamin 500 Mcg Tablet) 500 mcg PO DAILY@0800 [facility] Last Admin: 06/12/20 10:03 Dose: 500 mcg Documented by: Diphenhydramine HCl (Diphenhydramine 25 Mg Capsule) 25 mg PO QHS [facility] Last Admin: 06/12/20 21:59 Dose: 25 mg Documented by: Ferrous Sulfate (Ferrous Sulfate 325 Mg Tablet) 325 mg PO BID@1200,1700 [facility] Last Admin: 06/12/20 16:57 Dose: 325 mg Documented by: Folic Acid (Folic Acid 1 Mg Tablet) 1 mg PO DAILY@0800 [facility] Last Admin: 06/12/20 10:02 Dose: 1 mg Documented by: Furosemide (Furosemide 40 Mg Tablet) 60 mg PO DAILY [facility] Last Admin: 06/12/20 10:01 Dose: 60 mg Documented by: Furosemide (Furosemide 40 Mg/4 Ml Vial) 40 mg IV X1 ONE Stop: 06/13/20 07:22 Gabapentin (Gabapentin 600 Mg Tablet) 600 mg PO 4X/DAY [facility] Last Admin: 06/12/20 21:59 Dose: 600 mg Documented by: Isosorbide Mononitrate (Isosorbide Mononitrate 120 Mg Tablet) 120 mg PO DAILY [facility] Last Admin: 06/12/20 10:01 Dose: 120 mg Documented by: Melatonin (Melatonin 3 Mg Tablet) 3 mg PO QHS PRN PRN PRN Reason: INSOMNIA Last Admin: 10/27/20 21:38 Dose: 3 mg Documented by: Methocarbamol (Methocarbamol 500 Mg Tablet) 500 mg PO BID [facility] Last Admin: 06/12/20 21:59 Dose: 500 mg Documented by: Metoprolol Succinate (Metoprolol(Xl)Succ 100 Mg Tablet) 100 mg PO DAILY [facility] Last Admin: 06/12/20 10:03 Dose: 100 mg Documented by: Ondansetron HCl (Ondansetron 4 Mg/2 Ml Vial) 4 mg IV Q8H PRN PRN PRN Reason: NAUSEA/VOMITING Last Admin: 06/11/20 10:35 Dose: 4 mg Documented by: Oxycodone HCl (Oxycodone 5 Mg Tablet) 10 mg PO Q4H PRN PRN PRN Reason: Pain Score 6-10 Last Admin: 06/13/20 02:43 Dose: 10 mg Documented by: Pantoprazole Sodium (Pantoprazole Sodium 20 Mg Tablet) 20 mg PO BID [facility] Last Admin: 06/12/20 21:59 Dose: 20 mg Documented by: Potassium Chloride (Potassium Chlor[facility] 10 Meq Tablet) [facility] Last Admin: 06/12/20 16:56 Dose: 10 meq Documented by: Ranolazine (Ranolazine 500 Mg Tablet) 500 mg PO BID [facility] Last Admin: 06/12/20 21:58 Dose: 500 mg Documented by: Sacubitril/Valsartan (Sacubitril/Valsartan 49-51 Mg Tablet) 1 each PO BID [facility] Last Admin: 06/12/20 21:59 Dose: 1 each Documented by: Sodium Chloride (0.9% Saline Lock 10 Ml Syringe) 10 - 40 ml IV UD PRN PRN Reason: SALINE FLUSH Last Admin: 06/11/20 21:28 Dose: 10 ml Documented by: Medical Necessity - Tobacco Use Smoking Status: Never smoker Assessment/Plan All Active Problems (Last Reviewed 06/11/20 @ 06:[address] Nam Robertson MD) Inability to walk (Acute) Hematoma of right thigh (Acute) Warfarin-induced coagulopathy (Acute) Acute blood loss anemia (Acute) NIKHIL (acute kidney injury) (Acute) 1. Acute right hip hematoma, no history of trauma Pelvic CT confirmed large hematoma with fluid level along the vastus lateralis as well as swelling of the right quadriceps muscle Orthopedic surgery following 2. Acute blood loss anemia, drop in hemoglobin to 6.3, status post 1 pack RBC. Will transfuse 2 units of packed RBC, Lasix IV alf through transfusion, follow-up with H&H Continue on p.o. iron 3. Chronic systolic CHF/ischemic cardiomyopathy, EF 25%/CAD status post CABG Continue on aspirin, statin, isosorbide, metoprolol, Entresto 4. NIKHIL on CKD stage III, resolved, at baseline Admitted with creatinine of 1.60, creatinine now is 0.82 5. Hypertension, relatively hypotensive, on metoprolol and Entresto 6. DVT prophylaxis?SCDs on account of hematoma Inpatient E&M: 81398 Subs Hosp L3
--- NOTE | 2020-06-13 08:01 | PCM.PN.ORT ---
Patient Problems: Active and Suspected Problems (Last Reviewed 06/11/20 @ 06:[address] Nam Robertson MD) Inability to walk (Acute) Hematoma of right thigh (Acute) Warfarin-induced coagulopathy (Acute) Acute blood loss anemia (Acute) NIKHIL (acute kidney injury) (Acute) Subjective: This is a 79-year-old female who is here due to right thigh pain and hematoma. CT was obtained which shows a large hematoma with fluid level involving the vastus lateralis. Patient has been evaluated by Dr. Vinnie Hernadez and placed in a knee immobilizer. Patient states most of her pain is associated when she is up walking. She denies any current chest pain, shortness of breath, dizziness or lightheadedness. Her hemoglobin has dropped to 6.3 today. Per nursing the medicine doctor states they will be giving her 2 units of blood. Patient does have history of pulmonary emboli and blood clots and has been on Coumadin. Patient did have a back procedure for injections with the pain management doctor in which she had to come off of her Coumadin. She was placed on Lovenox. Patient had spontaneous bleeding. She seems comfortable in the bed in no acute distress. Objective: Patient did have some low blood pressure with tachycardia overnight. She currently denies any chest pain, shortness of breath, dizziness or lightheadedness. No feeling of syncope. Patient is able to plantarflex and dorsiflex actively. Sensation is intact to light touch to saphenous, sural, superficial and deep peroneal, and tibial distribution. Patient's right thigh is without any erythema or signs of infection. Patient does have swelling in the right thigh has mild firmness but still compressible. The abdomen does have many areas of ecchymosis from previous Lovenox injections. Negative Homans bilaterally, negative signs and symptoms of DVT. - Physical Exam Vitals/I&O's: Vital Signs Temp Pulse Resp BP Pulse Ox 98.2 F 87 16 113/43 L 92 06/13/20 02:29 06/13/20 02:29 06/13/20 02:29 06/13/20 02:29 06/13/20 02:29 Oxygen Delivery Method Room Air Weight: 94.7 kg Body Mass Index (BMI) 35.8 Intake and Output for Last 24 Hours 06/11/20 06/12/20 06/13/20 23:59 23:59 23:59 Intake Total 2838.33 / 2838.33 2451.67 / 2451.67 300 / 300 Output Total 800 / 800 1300 / 1300 800 / 800 Balance 2038.33 / 8.33 1151.67 / 1151.67 -500 / -500 General: Alert, Oriented x3, Cooperative, No apparent distress Laboratory Results 06/11/20 03:20: Crossmatch See Detail 06/12/20 05:50: Iron 75, TIBC 369, Iron Saturation 20.3 06/12/20 08:24: WBC 7.9, RBC 2.51 L, Hgb 7.2 L, Hct 23.6 L, MCV 94.0 D, MCH 28.7, MCHC 30.5 L, RDW Std Deviation Not Reportable, RDW Coeff of Maty Not Reportable, Plt Count 106 L, Neut % (Auto) Not Reportable, Absolute Neuts (auto) 4.4, Absolute Lymphs (auto) 2.37, Total Counted 100, Neutrophils % (Manual) 54, Band Neutrophils % 2, Lymphocytes % (Manual) 30, Monocytes % (Manual) 11 H, Eosinophils % (Manual) 1, Metamyelocytes % 1, Myelocytes % 1 H, Diff Path Review Selena hernandez, Platelet Estimate SLT DEC, Plt Morphology Comment LARGE, Anisocytosis 3+, Microcytosis 2+, Macrocytosis 1+ 06/12/20 14:27: Hgb 7.3 L, Hct 23.9 L 06/12/20 19:07: COVID-19 ([facility]AREK) Not Detected 06/13/20 05:10: PT 15.1 H, INR 1.2 06/13/20 05:10: WBC 7.9, RBC 2.18 L, Hgb 6.3 L, Hct 20.3 L, MCV 93.1, MCH 28.9, MCHC 31.0 L, RDW Std Deviation Not Reportable, RDW Coeff of Maty Not Reportable, Plt Count 113 L, Neut % (Auto) Not Reportable, Absolute Neuts (auto) 4.8, Absolute Lymphs (auto) 2.30, Total Counted 100, Neutrophils % (Manual) 54, Band Neutrophils % 7 H, Lymphocytes % (Manual) 29, Monocytes % (Manual) 10, Metamyelocytes % 5 H, Diff Path Review Selena hernandez Platelet Estimate MOD DEC, Polychromasia 1+, Hypochromasia 2+, Anisocytosis 3+, Microcytosis 1+, Ovalocytes 1+ 06/13/20 05:10: Sodium 137, Potassium 4.5, Chloride 104, Carbon Dioxide 28.0, Anion Gap 5, BUN 12, Creatinine 0.82, Estim Creat Clear Calc 46.46, Est GFR (MDRD) Af Amer 86, Est GFR (MDRD) Non-Af 71, BUN/Creatinine Ratio 14.6, Glucose 102, Calcium 8.1 L, Total Bilirubin 0.90, AST 39 H, ALT 20, Alkaline Phosphatase 32 L, Total Protein 5.5 L, Albumin 2.4 L, Globulin 3.1, Albumin/Globulin Ratio 0.8 L Current Medications Acetaminophen (Acetaminophen 325 Mg Tablet) 650 mg PO Q6H PRN PRN PRN Reason: Pain Score 1-10/Temp > 100.7 F Last Admin: 06/11/20 18:11 Dose: 650 mg Documented by: Aspirin (Aspirin E.C. 81 Mg Tablet) 81 mg PO DAILY@0800 [facility] Last Admin: 06/12/20 10:02 Dose: 81 mg Documented by: Atorvastatin Calcium (Atorvastatin Calcium 80 Mg Tablet) 80 mg PO QHS [facility] Last Admin: 06/12/20 21:59 Dose: 80 mg Documented by: Calcium/Vitamin D (Calcium Carb/Vitamin D 1 Tablet Tablet) [facility] Last Admin: 06/12/20 16:56 Dose: 1 tablet Documented by: Cyanocobalamin (Cyanocobalamin 500 Mcg Tablet) 500 mcg PO DAILY@0800 [facility] Last Admin: 06/12/20 10:03 Dose: 500 mcg Documented by: Diphenhydramine HCl (Diphenhydramine 25 Mg Capsule) 25 mg PO QHS [facility] Last Admin: 06/12/20 21:59 Dose: 25 mg Documented by: Ferrous Sulfate (Ferrous Sulfate 325 Mg Tablet) 325 mg PO BID@1200,1700 [facility] Last Admin: 06/12/20 16:57 Dose: 325 mg Documented by: Folic Acid (Folic Acid 1 Mg Tablet) 1 mg PO DAILY@0800 [facility] Last Admin: 06/12/20 10:02 Dose: 1 mg Documented by: Furosemide (Furosemide 40 Mg Tablet) 60 mg PO DAILY [facility] Last Admin: 06/12/20 10:01 Dose: 60 mg Documented by: Gabapentin (Gabapentin 600 Mg Tablet) 600 mg PO 4X/DAY [facility] Last Admin: 06/12/20 21:59 Dose: 600 mg Documented by: Isosorbide Mononitrate (Isosorbide Mononitrate 120 Mg Tablet) 120 mg PO DAILY [facility] Last Admin: 06/12/20 10:01 Dose: 120 mg Documented by: Melatonin (Melatonin 3 Mg Tablet) 3 mg PO QHS PRN PRN PRN Reason: INSOMNIA Last Admin: 06/11/20 21:38 Dose: 3 mg Documented by: Methocarbamol (Methocarbamol 500 Mg Tablet) 500 mg PO BID [facility] Last Admin: 06/12/20 21:59 Dose: 500 mg Documented by: Metoprolol Succinate (Metoprolol(Xl)Succ 100 Mg Tablet) 100 mg PO DAILY [facility] Last Admin: 06/12/20 10:03 Dose: 100 mg Documented by: Ondansetron HCl (Ondansetron 4 Mg/2 Ml Vial) 4 mg IV Q8H PRN PRN PRN Reason: NAUSEA/VOMITING Last Admin: 06/11/20 10:35 Dose: 4 mg Documented by: Oxycodone HCl (Oxycodone 5 Mg Tablet) 10 mg PO Q4H PRN PRN PRN Reason: Pain Score 6-10 Last Admin: 06/13/20 02:43 Dose: 10 mg Documented by: Pantoprazole Sodium (Pantoprazole Sodium 20 Mg Tablet) 20 mg PO BID [facility] Last Admin: 06/12/20 21:59 Dose: 20 mg Documented by: Potassium Chloride (Potassium Chloride 10 Meq Tablet) [facility] Last Admin: 06/12/20 16:56 Dose: 10 meq Documented by: Ranolazine (Ranolazine 500 Mg Tablet) 500 mg PO BID [facility] Last Admin: 06/12/20 21:58 Dose: 500 mg Documented by: Sacubitril/Valsartan (Sacubitril/Valsartan 49-51 Mg Tablet) 1 each PO BID [facility] Last Admin: 06/12/20 21:59 Dose: 1 each Documented by: Sodium Chloride (0.9% Saline Lock 10 Ml Syringe) 10 - 40 ml IV UD PRN PRN Reason: SALINE FLUSH Last Admin: 06/11/20 21:28 Dose: 10 ml Documented by: Medical Necessity - Tobacco Use Smoking Status: Never smoker Assessment/Plan All Active Problems (Last Reviewed 06/11/20 @ 06:[address] Nam Robertson MD) Inability to walk (Acute) Hematoma of right thigh (Acute) Warfarin-induced coagulopathy (Acute) Acute blood loss anemia (Acute) NIKHIL (acute kidney injury) (Acute) Impression/plan: 1. Right thigh large hematoma: At this time we will continue recommendations per Dr. Kaz Hernadez and use a knee immobilizer limiting any flexion of the knee for comfort. She will continue with physical therapy. Case was discussed with Dr. Kaz Hernadez and at this time medicine may consider aspiration of the hematoma with fluoroscopy. Patient will eventually need to be followed with Dr. Hernadez in 2 weeks at [facility]. 2. Continue treatment per medicine/hospitalist: Patient currently will be given 2 units of packed red blood cells due to the drop in hemoglobin which is 6.3 today. Patient's hemoglobin was 7.3 the past 2 days. 3. Case management involved in plan will be for patient to be transferred to the transitional care unit once medically stable and pre-CERT has been obtained. We will continue to monitor swelling in the thigh.
[2020-06-13] MEDS: Calcium Carb/Vitamin D 1 TABLET Tablet PO ×2 (09:58→17:18)
[2020-06-13] MEDS: Aspirin E.C. 81 MG Tablet PO (09:59)
[2020-06-13] MEDS: Folic Acid 1 MG Tablet PO (09:59)
[2020-06-13] MEDS: Metoprolol(XL)Succ 100 MG Tablet PO (09:59)
[2020-06-13] MEDS: Gabapentin 600 MG Tablet PO ×4 (09:59→21:00)
[2020-06-13] MEDS: Ranolazine 500 MG Tablet PO ×2 (09:59→21:00)
[2020-06-13] MEDS: SACUBITRIL/VALSARTAN 49-51 MG TABLET 1 EACH PO ×2 (10:00→21:00)
[2020-06-13] MEDS: Pantoprazole Sodium 20 MG Tablet PO ×2 (10:00→21:00)
[2020-06-13] MEDS: Cyanocobalamin 500 MCG Tablet PO (10:00)
[2020-06-13] MEDS: Methocarbamol 500 MG Tablet PO ×2 (10:00→21:00)
[2020-06-13] MEDS: Ferrous Sulfate 325 MG Tablet PO ×2 (11:32→17:19)
[2020-06-13 12:23] LABS: Pathologist Review Reviewed
[2020-06-13 12:23] LABS: Pathologist Review Reviewed
[2020-06-13] MEDS: Furosemide 40 MG/4 ML Vial IV (13:38)
[2020-06-13] MEDS: Furosemide 20 MG/2 ML VIAL IV (13:38)
--- NOTE | 2020-06-13 13:55 | CASEMGMT ---
Addendum entered by Mercy French 06/13/20 15:15: Physician agreeable to peer to peer. SW placed a call to [employer] and scheduled peer to peer. Original Note: Social Work Note SW received call from Katharine in TCU stating pt has been denied. Peer to peer number is , reference number is [id number], peer to peer has to be completed y 12:00pm noon tomorrow. ONE updated physician. NOE waiting for response from physician. Mercy French RENEWAL SPECIALIST, [employer]IVER
--- NOTE | 2020-06-13 16:00 | CASEMGMT ---
Social Work Note NOE spoke with physician, Siomara's holding off on denial at this time due to pt still needing medical care. Luistmanpreet physician had told physician that an expedited appeal could be completed once pt is medically ready for discharge. NOE updated Katharine in TCU of this. Katharine states expedited appeal number is and they will need the case reference number again [id number]. Mercy French DESK ASSISTANT, HOUSEKEEPING AID
[2020-06-13 18:51] LABS: Hemoglobin 8.5 g/dL (12.0-15.0)
[2020-06-13] MEDS: DiphenhydrAMINE 25 MG Capsule PO (21:00)
[2020-06-13] MEDS: Atorvastatin Calcium 80 MG Tablet PO (21:00)
[2020-06-14 02:52] VITALS: BP 132/52; PULSE 84; RESP 18; TEMP 36.7; O2SAT 99
[2020-06-14 06:25] LABS: Hematocrit 27.7 % (37-47); Hemoglobin 8.7 g/dL (12.0-15.0); Mean Corp Hgb Conc 31.4 g/dL (32-36); Mean Corpuscular Hgb 29.2 pg (27.0-32.0); POSITIVE COUNT YES; POSITIVE MORPHOLOGY YES; Platelet Count 113 K/mm3 (150-450); RBC Distribution Width CV 24.3 % (11.6-14.6); RBC Distribution Width SD 82.8 fl (35.1-43.9); Red Blood Count 2.98 M/mm3 (4.2-5.4); White Blood Count 7.8 K/mm3 (4.4-11.0)
[2020-06-14 06:34] LABS: International Normalized Ratio 1.2; Prothrombin Time (Protime)PT. 15.1 SECONDS (11.7-14.9)
[2020-06-14 06:56] LABS: Differential Indicated MANUAL DIFF
[2020-06-14 06:59] LABS: ALB/GLOB Ratio 0.6 RATIO (0.9-2.4); AST(SGOT) 35 U/L (15-37); Alanine Aminotransfer ALT/SGPT 23 U/L (13-56); Albumin, Serum 2.4 g/dL (3.2-5.0); Alkaline Phosphatase 36 U/L (45-117); Anion Gap 4 (5-15); BUN 15 mg/dL (7-18); BUN/Creat Ratio 17.2 RATIO (10-20); Calcium,Total 8.7 mg/dL (8.5-10.1); Chloride 104 mmol/L (98-107); Creatinine, Serum 0.87 mg/dL (0.55-1.02); EST Glomerular Filtration Rate 66 mL/min (>60); Est Glom Filt Rate - Afr Amer 80 mL/min (>60); Estimated Creatinine Clearance 43.79 ml/min; Globulin 3.7 g/dL (2.2-4.2); Glucose 106 mg/dL (74-106); Potassium 4.5 mmol/L (3.5-5.1); Protein, Total 6.1 g/dL (6.4-8.2); Sodium Level 137 mmol/L (136-145)
[2020-06-14 07:05] LABS: Basophil 1 % (0-1); Lymphocyte 32 % (19-41); Metamyelocyte 2 % (0-1); Monocyte 10 % (0-10); Myelocyte 1 (0-0); Neutrophil-Band 2 % (0-5); Neutrophil-Segmented 52 % (47-70); Nucleated Red Bld Cells,Manual 1 % (0-5); Total Cells Counted 100 (MANUAL DIFF)
[2020-06-14 07:06] LABS: Lymphocyte # 2.45 X10^3/ul (4.0); Macrocytosis 2+; Microcytosis 1+; Platelet Estimate ADEQUATE (ADEQ); Red Cell Morphology N CHROM NORMAL (NORM C&C)
[2020-06-14 07:07] LABS: Absolute Lymphocyte Count 2.45 X10^3/uL (0.83-4.51); Absolute Neutrophil Count 4.2 X10^3/uL (2.0-7.7); Neutrophil # 4.21 X10^3/uL (2.7-7.7)
[2020-06-14] MEDS: SACUBITRIL/VALSARTAN 49-51 MG TABLET 1 EACH PO ×2 (07:50→21:59)
[2020-06-14] MEDS: Methocarbamol 500 MG Tablet PO ×2 (07:50→21:59)
[2020-06-14] MEDS: Calcium Carb/Vitamin D 1 TABLET Tablet PO ×2 (07:50→15:55)
[2020-06-14] MEDS: Gabapentin 600 MG Tablet PO ×4 (07:50→21:58)
[2020-06-14 07:51] VITALS: PULSE 99
[2020-06-14] MEDS: Metoprolol(XL)Succ 100 MG Tablet PO (07:51)
[2020-06-14] MEDS: Aspirin E.C. 81 MG Tablet PO (07:53)
[2020-06-14] MEDS: Folic Acid 1 MG Tablet PO (07:53)
[2020-06-14] MEDS: Cyanocobalamin 500 MCG Tablet PO (07:54)
[2020-06-14] MEDS: Ranolazine 500 MG Tablet PO ×2 (07:54→21:59)
[2020-06-14] MEDS: Pantoprazole Sodium 20 MG Tablet PO ×2 (07:54→21:59)
[2020-06-14 07:58] VITALS: BP 128/104; PULSE 99; RESP 16; TEMP 36.8; O2SAT 98
[2020-06-14] MEDS: Ferrous Sulfate 325 MG Tablet PO ×2 (11:05→15:55)
[2020-06-14 13:24] LABS: Pathologist Review Reviewed
[2020-06-14 13:58] VITALS: BP 110/47; PULSE 81; RESP 16; TEMP 36.9; O2SAT 98
--- NOTE | 2020-06-14 14:06 | CASEMGMT ---
Addendum entered by Mercy French 06/14/20 15:06: SW updated pt that pre-cert will be resubmitted again. Pt will remain at [facility] until pre-cert is obtained. Pt states understanding. Green sheet on chart in the event pre-cert is obtained. Plan: TCU pending pre-cert. Addendum entered by Mercy French 06/14/20 14:24: NOE received call from Katharine in TCU stating [employer] is going to allow her to just submit updated clinicals. Original Note: Social Work Note NOE placed a call to expedited appeal number and spoke with Alta with [employer]. NOE asked Alta to explain expedited appeal process. Alta states a provider would call the expedited appeal number and submit an appeal, the appeal then would go to their appeal team and the appeal team has 72 hours to make a decision on the appeal. Alta states [employer] is open 08/03. Alta states the physician would not talk to an actual doctor for the expedited appeal and and that anyone for a provider (NOE) could file the appeal. NOE spoke with Katharine in TCU, pt is moving slightly better with therapy. Katharine is agreeable to submitted a new pre-cert for pt since pt is now medically ready for discharge per physicians. NOE updated Physician, agreeable to new pre-cert being submitted. Plan: TCU pending pre-cert Mercy SHARP, MOTOR OPERATOR
--- NOTE | 2020-06-14 15:24 | PCM.PN.HOSP ---
Patient Problems: Active and Suspected Problems (Last Reviewed 06/11/20 @ 06:[address] Nam Robertson MD) Inability to walk (Acute) Hematoma of right thigh (Acute) Warfarin-induced coagulopathy (Acute) Acute blood loss anemia (Acute) NIKHIL (acute kidney injury) (Acute) Reason for Visit: Follow-up on acute blood loss anemia/right thigh hematoma. Subjective: Patient was seen and examined. She states that the pain in her right side of the thigh is getting better. Remains in the knee immobilizer. She however stated that she cannot walk or move much on account of pain. Denies any fever or chills. Objective: Physical exam: General: Alert, Oriented x3, Cooperative, No apparent distress, - - Not on oxygen, morbidly obese HEENT: Atraumatic, PERRLA, EOMI, Normocephalic Oral: Moist Mucosa Neck: Supple Lungs: Diminished Cardiovascular: Regular rate, Regular Rhythm, Normal S1, Normal S2, No murmurs Abdomen: Bowel Sounds Present, Soft, Non Tender, Non-Distended, No Hepato-splenomegaly Extremities: No edema Skin: No rashes Musculoskeletal: No Tenderness to Palpation of Joints or Extremities Lymphatic: No Cervical, Supraclavicular, or Inguinal Adenopathy Neurological: Cranial nerves II-XII grossly intact, Neuro grossly intact Psych/Mental Status: Normal Affect, Appropriate Vitals/I&O's: Vital Signs Temp Pulse Resp BP Pulse Ox 98.4 F 81 16 110/47 L 98 06/14/20 13:58 06/14/20 13:58 06/14/20 13:58 06/14/20 13:58 06/14/20 13:58 Oxygen Delivery Method Room Air Weight: 94.7 kg Body Mass Index (BMI) 35.8 Intake and Output for Last 24 Hours 06/12/20 06/13/20 06/14/20 23:59 23:59 23:59 Intake Total 2451.67 / 2451.67 1900 / 1900 400 / 400 Output Total 1300 / 1300 1900 / 1900 2850 / 2850 Balance 1151.67 / 1151.67 0 / 0 -2450 / -2450 Laboratory Results 06/11/20 03:20: Crossmatch See Detail 06/13/20 18:30: Hgb 8.5 L, Hct 27.0 L 06/14/20 06:00: PT 15.1 H, INR 1.2 06/14/20 06:00: WBC 7.8, RBC 2.98 L, Hgb 8.7 L, Hct 27.7 L, MCV 93.0, MCH 29.2, MCHC 31.4 L, RDW Std Deviation 82.8 H, RDW Coeff of Maty 24.3 H, Plt Count 113 L, Neut % (Auto) Not Reportable, Absolute Neuts (auto) 4.2, Absolute Lymphs (auto) 2.45, Total Counted 100, Neutrophils % (Manual) 52, Band Neutrophils % 2, Lymphocytes % (Manual) 32, Monocytes % (Manual) 10, Basophils % (Manual) 1, Metamyelocytes % 2 H, Myelocytes % 1 H, Nucleated RBCs/100 WBC 1, Diff Path Review Reviewed, Platelet Estimate ADEQUATE, RBC Morphology N CHROM, Microcytosis 1+, Macrocytosis 2+ 06/14/20 06:00: Sodium 137, Potassium 4.5, Chloride 104, Carbon Dioxide 29.0, Anion Gap 4 L, BUN 15, Creatinine 0.87, Estim Creat Clear Calc 43.79, Est GFR (MDRD) Af Amer 80, Est GFR (MDRD) Non-Af 66, BUN/Creatinine Ratio 17.2, Glucose 106, Calcium 8.7, Total Bilirubin 1.10 H, AST 35, ALT 23, Alkaline Phosphatase 36 L, Total Protein 6.1 L, Albumin 2.4 L, Globulin 3.7, Albumin/Globulin Ratio 0.6 L Current Medications Acetaminophen (Acetaminophen 325 Mg Tablet) 650 mg PO Q6H PRN PRN PRN Reason: Pain Score 1-10/Temp > 100.7 F Last Admin: 06/11/20 18:11 Dose: 650 mg Documented by: Aspirin (Aspirin E.C. 81 Mg Tablet) 81 mg PO DAILY@0800 [facility] Last Admin: 06/14/20 07:53 Dose: 81 mg Documented by: Atorvastatin Calcium (Atorvastatin Calcium 80 Mg Tablet) 80 mg PO QHS [facility] Last Admin: 06/13/20 21:00 Dose: 80 mg Documented by: Calcium/Vitamin D (Calcium Carb/Vitamin D 1 Tablet Tablet) 1 tablet PO BIDCM [facility] Last Admin: 06/14/20 07:50 Dose: 1 tablet Documented by: Cyanocobalamin (Cyanocobalamin 500 Mcg Tablet) 500 mcg PO DAILY@0800 [facility] Last Admin: 06/14/20 07:54 Dose: 500 mcg Documented by: Diphenhydramine HCl (Diphenhydramine 25 Mg Capsule) 25 mg PO QHS [facility] Last Admin: 06/13/20 21:00 Dose: 25 mg Documented by: Ferrous Sulfate (Ferrous Sulfate 325 Mg Tablet) 325 mg PO BID@1200,1700 [facility] Last Admin: 06/14/20 11:05 Dose: 325 mg Documented by: Folic Acid (Folic Acid 1 Mg Tablet) 1 mg PO DAILY@0800 [facility] Last Admin: 06/14/20 07:53 Dose: 1 mg Documented by: Gabapentin (Gabapentin 600 Mg Tablet) 600 mg PO 4X/DAY [facility] Last Admin: 06/14/20 14:02 Dose: 600 mg Documented by: Isosorbide Mononitrate (Isosorbide Mononitrate 120 Mg Tablet) 120 mg PO DAILY [facility] Last Admin: 06/14/20 07:50 Dose: 120 mg Documented by: Melatonin (Melatonin 3 Mg Tablet) 3 mg PO QHS PRN PRN PRN Reason: INSOMNIA Last Admin: 06/11/20 21:38 Dose: 3 mg Documented by: Methocarbamol (Methocarbamol 500 Mg Tablet) 500 mg PO BID [facility] Last Admin: 06/14/20 07:50 Dose: 500 mg Documented by: Metoprolol Succinate (Metoprolol(Xl)Succ 100 Mg Tablet) 100 mg PO DAILY [facility] Last Admin: 06/14/20 07:51 Dose: 100 mg Documented by: Ondansetron HCl (Ondansetron 4 Mg/2 Ml Vial) 4 mg IV Q8H PRN PRN PRN Reason: NAUSEA/VOMITING Last Admin: 06/11/20 10:35 Dose: 4 mg Documented by: Oxycodone HCl (Oxycodone 5 Mg Tablet) 10 mg PO Q4H PRN PRN PRN Reason: Pain Score 6-10 Last Admin: 06/13/20 02:43 Dose: 10 mg Documented by: Pantoprazole Sodium (Pantoprazole Sodium 20 Mg Tablet) 20 mg PO BID [facility] Last Admin: 06/14/20 07:54 Dose: 20 mg Documented by: Potassium Chloride (Potassium Ch[facility] 10 M[facility]) [facility] Last Admin: 06/14/20 07:50 Dose: 10 meq Documented by: Ranolazine (Ranolazine 500 Mg Tablet) 500 mg PO BID [facility] Last Admin: 06/14/20 07:54 Dose: 500 mg Documented by: Sacubitril/Valsartan (Sacubitril/Valsartan 49-51 Mg Tablet) 1 each PO BID [facility] Last Admin: 06/14/20 07:50 Dose: 1 each Documented by: Sodium Chloride (0.9% Saline Lock 10 Ml Syringe) 10 - 40 ml IV UD PRN PRN Reason: SALINE FLUSH Last Admin: 06/11/20 21:28 Dose: 10 ml Documented by: STROKE Vital Signs/Narrative: Vital Signs Temp Pulse Resp BP Pulse Ox 06/14/20 13:58 98.4 F 81 16 110/47 L 98 Medical Necessity - Tobacco Use Smoking Status: Never smoker Assessment/Plan All Active Problems (Last Reviewed 06/11/20 @ 06:[address] Nam Robertson MD) Inability to walk (Acute) Hematoma of right thigh (Acute) Warfarin-induced coagulopathy (Acute) Acute blood loss anemia (Acute) NIKHIL (acute kidney injury) (Acute) 1. Acute right hip hematoma, no history of trauma Pelvic CT confirmed large hematoma with fluid level along the vastus lateralis as well as swelling of the right quadriceps muscle Orthopedic surgery following 2. Acute blood loss anemia, status post 3 units packed RBC Hemoglobin remains at 8.7 Will continue to monitor 3. Chronic systolic CHF/ischemic cardiomyopathy, EF 25%/CAD status post CABG Continue on aspirin, statin, isosorbide, metoprolol, Entresto 4. NIKHIL on CKD stage III, resolved, at baseline Admitted with creatinine of 1.60, creatinine now is 0.87 5. Hypertension, relatively hypotensive, on metoprolol and Entresto 6. DVT prophylaxis?SCDs on account of hematoma Inpatient E&M: 10476 Subs Hosp L2
[2020-06-14] MEDS: Furosemide 20 MG Tablet 60 MG PO (15:54)
[2020-06-14] MEDS: oxyCODONE 5 MG Tablet 10 MG PO (19:41)
[2020-06-14 19:58] VITALS: BP 113/51; PULSE 83; RESP 16; TEMP 37.4; O2SAT 97
[2020-06-14] MEDS: Atorvastatin Calcium 80 MG Tablet PO (21:58)
[2020-06-14] MEDS: DiphenhydrAMINE 25 MG Capsule PO (21:59)
[2020-06-15] VITALS (7 sets, daily range): BP systolic 105–136; BP diastolic 47–54; PULSE 72–82; RESP 14–20; TEMP 36.1–37.2; O2SAT 95–100
[2020-06-15] MEDS: oxyCODONE 5 MG Tablet 10 MG PO ×2 (01:17→10:21)
[2020-06-15] MEDS: Folic Acid 1 MG Tablet PO (08:06)
[2020-06-15] MEDS: Calcium Carb/Vitamin D 1 TABLET Tablet PO ×2 (08:06→19:05)
[2020-06-15] MEDS: Aspirin E.C. 81 MG Tablet PO (08:06)
[2020-06-15] MEDS: Cyanocobalamin 500 MCG Tablet PO (08:06)
[2020-06-15 08:32] LABS: Hematocrit 29.1 % (37-47); Mean Corp Hgb Conc 30.9 g/dL (32-36); Mean Corpuscular Hgb 28.8 pg (27.0-32.0); Mean Corpuscular Volume 93.3 fL (81-99); POSITIVE COUNT YES; POSITIVE MORPHOLOGY YES; Platelet Count 130 K/mm3 (150-450); RBC Distribution Width CV 23.9 % (11.6-14.6); RBC Distribution Width SD 82.2 fl (35.1-43.9); Red Blood Count 3.12 M/mm3 (4.2-5.4); White Blood Count 6.7 K/mm3 (4.4-11.0)
[2020-06-15 08:43] LABS: Differential Indicated MANUAL DIFF
[2020-06-15 08:58] LABS: ALB/GLOB Ratio 0.6 RATIO (0.9-2.4); AST(SGOT) 38 U/L (15-37); Alanine Aminotransfer ALT/SGPT 30 U/L (13-56); Albumin, Serum 2.4 g/dL (3.2-5.0); Alkaline Phosphatase 40 U/L (45-117); Anion Gap 6 (5-15); BUN 18 mg/dL (7-18); BUN/Creat Ratio 21.5 RATIO (10-20); Calcium,Total 8.7 mg/dL (8.5-10.1); Chloride 101 mmol/L (98-107); Creatinine, Serum 0.84 mg/dL (0.55-1.02); EST Glomerular Filtration Rate 69 mL/min (>60); Est Glom Filt Rate - Afr Amer 84 mL/min (>60); Estimated Creatinine Clearance 45.36 ml/min; Globulin 3.9 g/dL (2.2-4.2); Glucose 91 mg/dL (74-106); Potassium 4.4 mmol/L (3.5-5.1); Protein, Total 6.3 g/dL (6.4-8.2); Sodium Level 136 mmol/L (136-145)
[2020-06-15 09:00] LABS: International Normalized Ratio 1.2; Prothrombin Time (Protime)PT. 14.9 SECONDS (11.7-14.9)
[2020-06-15] MEDS: Gabapentin 600 MG Tablet PO ×4 (10:17→23:23)
[2020-06-15] MEDS: SACUBITRIL/VALSARTAN 49-51 MG TABLET 1 EACH PO ×2 (10:17→23:22)
[2020-06-15] MEDS: Ranolazine 500 MG Tablet PO ×2 (10:18→23:23)
[2020-06-15] MEDS: Methocarbamol 500 MG Tablet PO ×2 (10:18→23:23)
[2020-06-15] MEDS: Pantoprazole Sodium 20 MG Tablet PO ×2 (10:18→23:23)
[2020-06-15] MEDS: Furosemide 20 MG Tablet 60 MG PO (10:18)
[2020-06-15] MEDS: Metoprolol(XL)Succ 100 MG Tablet PO (10:18)
--- NOTE | 2020-06-15 11:26 | NURSING ---
This nurse called in to room by therapy b/c pt was vomitting. Zofran given approximately an hr ago. this nurse will try to get something else for nausea.
[2020-06-15 11:28] LABS: Anisocytosis 2+; Eosinophil 2 % (0-5); Lymphocyte 27 % (19-41); Macrocytosis 1+; Metamyelocyte 1 % (0-1); Microcytosis 1+; Monocyte 12 % (0-10); Myelocyte 10 (0-0); Neutrophil-Band 6 % (0-5); Neutrophil-Segmented 42 % (47-70); Platelet Estimate SLT DEC (ADEQ); Total Cells Counted 100 (MANUAL DIFF)
[2020-06-15 11:29] LABS: Absolute Lymphocyte Count 1.81 X10^3/uL (0.83-4.51); Absolute Neutrophil Count 3.2 X10^3/uL (2.0-7.7)
--- NOTE | 2020-06-15 12:07 | NURSING ---
back to bed after dry heaving. pt given sprite and Dr. Machado paged for a different antimetic.
[2020-06-15] MEDS: proCHLORPERazine 10 MG/2 ML Vial 5 MG IV (13:15)
[2020-06-15] MEDS: 0.9% Saline Lock 10 ML Syringe IV (13:17)
--- NOTE | 2020-06-15 14:32 | PN_ITS ---
Patient Problems: Active and Suspected Problems (Last Reviewed 06/11/20 @ 06:[address] Nam Robertson MD) Inability to walk (Acute) Hematoma of right thigh (Acute) Warfarin-induced coagulopathy (Acute) Acute blood loss anemia (Acute) NIKHIL (acute kidney injury) (Acute) Reason for Visit: Follow-up on acute blood loss anemia/right thigh hematoma. Subjective: Patient was seen and examined. No acute events overnight. Pain is improved. Continues to be in right knee immobilizer. Objective: Physical exam: General: Alert, Oriented x3, Cooperative, No apparent distress, - - Not on oxygen, morbidly obese HEENT: Atraumatic, PERRLA, EOMI, Normocephalic Oral: Moist Mucosa Neck: Supple Lungs: Diminished Cardiovascular: Regular rate, Regular Rhythm, Normal S1, Normal S2, No murmurs Abdomen: Bowel Sounds Present, Soft, Non Tender, Non-Distended, No Hepato- splenomegaly Extremities: No edema Skin: No rashes Musculoskeletal: No Tenderness to Palpation of Joints or Extremities Lymphatic: No Cervical, Supraclavicular, or Inguinal Adenopathy Neurological: Cranial nerves II-XII grossly intact, Neuro grossly intact Psych/Mental Status: Normal Affect, Appropriate Vitals/I&O's: Vital Signs Temp Pulse Resp BP Pulse Ox 97.7 F L 75 18 105/47 L 95 06/15/20 13:33 06/15/20 13:33 06/15/20 13:33 06/15/20 13:33 06/15/20 13:33 Oxygen Delivery Method Room Air Weight: 94.7 kg Body Mass Index (BMI) 35.8 Intake and Output for Last 24 Hours 06/13/20 06/14/20 06/15/20 23:59 23:59 23:59 Intake Total 1900 / 1900 400 / 400 120 / 120 Output Total 1900 / 1900 3150 / 4250 1850 / 1850 Balance 0 / 0 -2750 / -3850 -1730 / -1730 Laboratory Results 06/15/20 07:55: PT 14.9, INR 1.2 06/15/20 07:55: WBC 6.7, RBC 3.12 L, Hgb 9.0 L, Hct 29.1 L, MCV 93.3, MCH 28.8, MCHC 30.9 L, RDW Std Deviation 82.2 H, RDW Coeff of Maty 23.9 H, Plt Count 130 L, Neut % (Auto) Not Reportable, Absolute Neuts (auto) 3.2, Absolute Lymphs (auto) 1.81, Total Counted 100, Neutrophils % (Manual) 42 L, Band Neutrophils % 6 H, Lymphocytes % (Manual) 27, Monocytes % (Manual) 12 H, Eosinophils % (Manual) 2, Metamyelocytes % 1, Myelocytes % 10 H, Diff Path Review May foll, Platelet Estimate SLT DEC, Anisocytosis 2+, Microcytosis 1+, Macrocytosis 1+ 06/15/20 07:55: Sodium 136, Potassium 4.4, Chloride 101, Carbon Dioxide 29.0, Anion Gap 6, BUN 18, Creatinine 0.84, Estim Creat Clear Calc 45.36, Est GFR (MDRD) Af Amer 84, Est GFR (MDRD) Non-Af 69, BUN/Creatinine Ratio 21.5 H, Glucose 91, Calcium 8.7, Total Bilirubin 1.10 H, AST 38 H, ALT 30, Alkaline Phosphatase 40 L, Total Protein 6.3 L, Albumin 2.4 L, Globulin 3.9, Albumin/Globulin Ratio 0.6 L Current Medications Acetaminophen (Acetaminophen 325 Mg Tablet) 650 mg PO Q6H PRN PRN PRN Reason: Pain Score 1-10/Temp > 100.7 F Last Admin: 06/11/20 18:11 Dose: 650 mg Documented by: Aspirin (Aspirin E.C. 81 Mg Tablet) 81 mg PO DAILY@0800 [facility] Last Admin: 06/15/20 08:06 Dose: 81 mg Documented by: Atorvastatin Calcium (Atorvastatin Calcium 80 Mg Tablet) 80 mg PO QHS [facility] Last Admin: 06/14/20 21:58 Dose: 80 mg Documented by: Calcium/Vitamin D (Calcium Carb/Vitamin [facility] 1 Tablet [facility] Last Admin: 06/15/20 08:06 Dose: 1 tablet Documented by: Cyanocobalamin (Cyanocobalamin 500 Mcg Tablet) 500 mcg PO DAILY@0800 [facility] Last Admin: 06/15/20 08:06 Dose: 500 mcg Documented by: Diphenhydramine HCl (Diphenhydramine 25 Mg Capsule) [facility] Last Admin: 06/14/20 21:59 Dose: 25 mg Documented by: Ferrous Sulfate (Ferrous Sulfate 325 Mg Tablet) 325 mg PO BID@1200,1700 [facility] Last Admin: 06/15/20 12:06 Dose: Not Given Documented by: Folic Acid (Folic Acid 1 Mg Tablet) 1 mg PO DAILY@0800 [facility] Last Admin: 06/15/20 08:06 Dose: 1 mg Documented by: Furosemide (Furosemide 20 Mg Tablet) 60 mg PO DAILY [facility] Last Admin: 06/15/20 10:18 Dose: 60 mg Documented by: Gabapentin (Gabapentin 600 Mg Tablet) 600 mg PO 4X/DAY [facility] Last Admin: 06/15/20 13:18 Dose: 600 mg Documented by: Isosorbide Mononitrate (Isosorbide Mononitrate 120 Mg Tablet) 120 mg PO DAILY [facility] Last Admin: 06/15/20 10:18 Dose: 120 mg Documented by: Melatonin (Melatonin 3 Mg Tablet) 3 mg PO QHS PRN PRN PRN Reason: INSOMNIA Last Admin: 06/11/20 21:38 Dose: 3 mg Documented by: Methocarbamol (Methocarbamol 500 Mg Tablet) 500 mg PO BID [facility] Last Admin: 06/15/20 10:18 Dose: 500 mg Documented by: Metoprolol Succinate (Metoprolol(Xl)Succ 100 Mg Tablet) 100 mg PO DAILY [facility] Last Admin: 06/15/20 10:18 Dose: 100 mg Documented by: Ondansetron HCl (Ondansetron 4 Mg/2 Ml Vial) 4 mg IV Q6H PRN PRN PRN Reason: NAUSEA/VOMITING Oxycodone HCl (Oxycodone 5 Mg Tablet) 10 mg PO Q4H PRN PRN PRN Reason: Pain Score 6-10 Last Admin: 06/15/20 10:21 Dose: 10 mg Documented by: Pantoprazole Sodium (Pantoprazole Sodium 20 Mg Tablet) 20 mg PO BID [facility] Last Admin: 06/15/20 10:18 Dose: 20 mg Documented by: Potassium Chloride (Potassium Ch[facility] 10 Meq [facility]t) [facility] Last Admin: 06/15/20 08:05 Dose: 10 meq Documented by: Ranolazine (Ranolazine 500 Mg Tablet) 500 mg PO BID [facility] Last Admin: 06/15/20 10:18 Dose: 500 mg Documented by: Sacubitril/Valsartan (Sacubitril/Valsartan 49-51 Mg Tablet) 1 each PO BID [facility] Last Admin: 06/15/20 10:17 Dose: 1 each Documented by: Sodium Chloride (0.9% Saline Lock 10 Ml Syringe) 10 - 40 ml IV UD PRN PRN Reason: SALINE FLUSH Last Admin: 06/15/20 13:17 Dose: 10 ml Documented by: STROKE Vital Signs/Narrative: Vital Signs Temp Pulse Resp BP Pulse Ox 06/15/20 13:33 97.7 F L 75 18 105/47 L 95 Medical Necessity - Tobacco Use Smoking Status: Never smoker Assessment/Plan All Active Problems (Last Reviewed 06/11/20 @ 06:[address] Nam Robertson MD) Inability to walk (Acute) Hematoma of right thigh (Acute) Warfarin-induced coagulopathy (Acute) Acute blood loss anemia (Acute) NIKHIL (acute kidney injury) (Acute) 1. Acute right hip hematoma, no history of trauma Pelvic CT confirmed large hematoma with fluid level along the vastus lateralis as well as swelling of the right quadriceps muscle Orthopedic surgery following, recommends right knee immobilizer to have avoid aggravating hematoma 2. Acute blood loss anemia, status post 3 units packed RBC Hemoglobin remains stable at 9.0 Will continue to monitor 3. Chronic systolic CHF/ischemic cardiomyopathy, EF 25%/CAD status post CABG Continue on aspirin, statin, isosorbide, metoprolol, Entresto 4. NIKHIL on CKD stage III, resolved, at baseline Admitted with creatinine of 1.60, creatinine now is 0.84 5. Hypertension, relatively hypotensive, on metoprolol and Entresto 6. DVT prophylaxis?SCDs on account of hematoma 7. Disposition: Awaiting DC to SNF when bed is available Inpatient E&M: 00124 Subs Hosp L2
[2020-06-15] MEDS: Ferrous Sulfate 325 MG Tablet PO (19:05)
[2020-06-15] MEDS: DiphenhydrAMINE 25 MG Capsule PO (23:22)
[2020-06-15] MEDS: Atorvastatin Calcium 80 MG Tablet PO (23:23)
[2020-06-16 02:08] VITALS: BP 111/45; PULSE 82; RESP 20; TEMP 36.7; O2SAT 96
[2020-06-16 06:06] LABS: Hematocrit 27.5 % (37-47); Hemoglobin 8.6 g/dL (12.0-15.0); Mean Corp Hgb Conc 31.3 g/dL (32-36); Mean Corpuscular Hgb 29.2 pg (27.0-32.0); Mean Corpuscular Volume 93.2 fL (81-99); POSITIVE COUNT YES; POSITIVE MORPHOLOGY YES; Platelet Count 144 K/mm3 (150-450); RBC Distribution Width CV 23.9 % (11.6-14.6); Red Blood Count 2.95 M/mm3 (4.2-5.4); White Blood Count 6.9 K/mm3 (4.4-11.0)
[2020-06-16 06:16] LABS: Differential Indicated MANUAL DIFF
[2020-06-16 06:36] LABS: ALB/GLOB Ratio 0.6 RATIO (0.9-2.4); AST(SGOT) 41 U/L (15-37); Alanine Aminotransfer ALT/SGPT 31 U/L (13-56); Albumin, Serum 2.3 g/dL (3.2-5.0); Alkaline Phosphatase 48 U/L (45-117); Anion Gap 6 (5-15); BUN 16 mg/dL (7-18); BUN/Creat Ratio 20.3 RATIO (10-20); Calcium,Total 8.9 mg/dL (8.5-10.1); Chloride 104 mmol/L (98-107); Creatinine, Serum 0.79 mg/dL (0.55-1.02); EST Glomerular Filtration Rate 74 mL/min (>60); Est Glom Filt Rate - Afr Amer 90 mL/min (>60); Globulin 3.8 g/dL (2.2-4.2); Glucose 93 mg/dL (74-106); Potassium 4.4 mmol/L (3.5-5.1); Protein, Total 6.1 g/dL (6.4-8.2); Sodium Level 137 mmol/L (136-145)
[2020-06-16 06:53] LABS: Eosinophil 1 % (0-5); Lymphocyte 38 % (19-41); Metamyelocyte 7 % (0-1); Monocyte 3 % (0-10); Neutrophil-Band 8 % (0-5); Neutrophil-Segmented 43 % (47-70); Total Cells Counted 100 (MANUAL DIFF)
[2020-06-16 06:56] LABS: Polychromasia RARE
[2020-06-16 06:59] LABS: Absolute Lymphocyte Count 2.61 X10^3/uL (0.83-4.51); Absolute Neutrophil Count 3.5 X10^3/uL (2.0-7.7); Lymphocyte # 2.61 X10^3/ul (4.0)
[2020-06-16 07:00] LABS: Platelet Estimate SLT DEC (ADEQ)
--- NOTE | 2020-06-16 07:27 | PN_ITS ---
Patient Problems: Active and Suspected Problems (Last Reviewed 06/11/20 @ 06:[address] Nam Robertson MD) Inability to walk (Acute) Hematoma of right thigh (Acute) Warfarin-induced coagulopathy (Acute) Acute blood loss anemia (Acute) NIKHIL (acute kidney injury) (Acute) Reason for Visit: Follow-up on acute blood loss anemia/right thigh hematoma. Subjective: Patient was seen and examined. No acute events. Denies fever or chills, chest pain or SOB. Objective: Physical exam: General: Alert, Oriented x3, Cooperative, No apparent distress, - - Not on oxygen, morbidly obese HEENT: Atraumatic, PERRLA, EOMI, Normocephalic Oral: Moist Mucosa Neck: Supple Lungs: Diminished Cardiovascular: Regular rate, Regular Rhythm, Normal S1, Normal S2, No murmurs Abdomen: Bowel Sounds Present, Soft, Non Tender, Non-Distended, No Hepato- splenomegaly Extremities: No edema Skin: No rashes Musculoskeletal: No Tenderness to Palpation of Joints or Extremities Lymphatic: No Cervical, Supraclavicular, or Inguinal Adenopathy Neurological: Cranial nerves II-XII grossly intact, Neuro grossly intact Psych/Mental Status: Normal Affect, Appropriate Vitals/I&O's: Vital Signs Temp Pulse Resp BP Pulse Ox 98.0 F 82 20 H 111/45 L 96 06/16/20 02:08 06/16/20 02:08 06/16/20 02:08 06/16/20 02:08 06/16/20 02:08 Oxygen Delivery Method Room Air Weight: 94.7 kg Body Mass Index (BMI) 35.8 Intake and Output for Last 24 Hours 06/14/20 06/15/20 06/16/20 23:59 23:59 22:59 Intake Total 400 / 400 120 / 120 Output Total 3150 / 4250 1850 / 2000 600 / 600 Balance -2750 / -3850 -1730 / -1880 -600 / -600 Laboratory Results 06/15/20 07:55: PT 14.9, INR 1.2 06/15/20 07:55: WBC 6.7, RBC 3.12 L, Hgb 9.0 L, Hct 29.1 L, MCV 93.3, MCH 28.8, MCHC 30.9 L, RDW Std Deviation 82.2 H, RDW Coeff of Maty 23.9 H, Plt Count 130 L, Neut % (Auto) Not Reportable, Absolute Neuts (auto) 3.2, Absolute Lymphs (auto) 1.81, Total Counted 100, Neutrophils % (Manual) 42 L, Band Neutrophils % 6 H, Lymphocytes % (Manual) 27, Monocytes % (Manual) 12 H, Eosinophils % (Manual) 2, Metamyelocytes % 1, Myelocytes % 10 H, Diff Path Review May mary, Platelet Estimate SLT DEC, Anisocytosis 2+, Microcytosis 1+, Macrocytosis 1+ 06/15/20 07:55: Sodium 136, Potassium 4.4, Chloride 101, Carbon Dioxide 29.0, Anion Gap 6, BUN 18, Creatinine 0.84, Estim Creat Clear Calc 45.36, Est GFR (MDRD) Af Amer 84, Est GFR (MDRD) Non-Af 69, BUN/Creatinine Ratio 21.5 H, Glucose 91, Calcium 8.7, Total Bilirubin 1.10 H, AST 38 H, ALT 30, Alkaline Phosphatase 40 L, Total Protein 6.3 L, Albumin 2.4 L, Globulin 3.9, Albumin/Globulin Ratio 0.6 L 06/16/20 05:02: WBC 6.9, RBC 2.95 L, Hgb 8.6 L, Hct 27.5 L, MCV 93.2, MCH 29.2, MCHC 31.3 L, RDW Std Deviation 82.0 H, RDW Coeff of Maty 23.9 H, Plt Count 144 L, Neut % (Auto) Not Reportable, Absolute Neuts (auto) 3.5, Absolute Lymphs (auto) 2.61, Total Counted 100, Neutrophils % (Manual) 43 L, Band Neutrophils % 8 H, Lymphocytes % (Manual) 38, Monocytes % (Manual) 3, Eosinophils % (Manual) 1, Metamyelocytes % 7 H, Differential Comment COMMENT, Diff Path Review May mary Platelet Estimate SLT DEC, Polychromasia RARE 06/16/20 05:02: Sodium 137, Potassium 4.4, Chloride 104, Carbon Dioxide 27.0, Anion Gap 6, BUN 16, Creatinine 0.79, Estim Creat Clear Calc 38.10, Est GFR (MDRD) Af Amer 90, Est GFR (MDRD) Non-Af 74, BUN/Creatinine Ratio 20.3 H, Glucose 93, Calcium 8.9, Total Bilirubin 1.50 H, AST 41 H, ALT 31, Alkaline Phosphatase 48, Total Protein 6.1 L, Albumin 2.3 L, Globulin 3.8, Albumin/Globulin Ratio 0.6 L Current Medications Acetaminophen (Acetaminophen 325 Mg Tablet) 650 mg PO Q6H PRN PRN PRN Reason: Pain Score 1-10/Temp > 100.7 F Last Admin: 06/11/20 18:11 Dose: 650 mg Documented by: Aspirin (Aspirin E.C. 81 Mg Tablet) 81 mg PO DAILY@0800 [facility] Last Admin: 06/15/20 08:06 Dose: 81 mg Documented by: Atorvastatin Calcium (Atorvastatin Calcium 80 Mg Tablet) 80 mg PO QHS [facility] Last Admin: 06/15/20 23:23 Dose: 80 mg Documented by: Calcium/Vitamin D (Calcium Carb/Vitamin D 1 Tablet Tablet) 1 tablet PO BIDCM [facility] Last Admin: 06/15/20 19:05 Dose: 1 tablet Documented by: Cyanocobalamin (Cyanocobalamin 500 Mcg Tablet) 500 mcg PO DAILY@0800 [facility] Last Admin: 06/15/20 08:06 Dose: 500 mcg Documented by: Diphenhydramine HCl (Diphenhydramine 25 Mg Capsule) 25 mg PO QHS [facility] Last Admin: 06/15/20 23:22 Dose: 25 mg Documented by: Ferrous Sulfate (Ferrous Sulfate 325 Mg Tablet) 325 mg PO BID@1200,1700 [facility] Last Admin: 06/15/20 19:05 Dose: 325 mg Documented by: Folic Acid (Folic Acid 1 Mg Tablet) 1 mg PO DAILY@0800 [facility] Last Admin: 06/15/20 08:06 Dose: 1 mg Documented by: Furosemide (Furosemide 20 Mg Tablet) 60 mg PO DAILY [facility] Last Admin: 06/15/20 10:18 Dose: 60 mg Documented by: Gabapentin (Gabapentin 600 Mg Tablet) 600 mg PO 4X/DAY [facility] Last Admin: 06/15/20 23:23 Dose: 600 mg Documented by: Isosorbide Mononitrate (Isosorbide Mononitrate 120 Mg Tablet) 120 mg PO DAILY [facility] Last Admin: 06/15/20 10:18 Dose: 120 mg Documented by: Melatonin (Melatonin 3 Mg Tablet) 3 mg PO QHS PRN PRN PRN Reason: INSOMNIA Last Admin: 06/11/20 21:38 Dose: 3 mg Documented by: Methocarbamol (Methocarbamol 500 Mg Tablet) 500 mg PO BID [facility] Last Admin: 06/15/20 23:23 Dose: 500 mg Documented by: Metoprolol Succinate (Metoprolol(Xl)Succ 100 Mg Tablet) 100 mg PO DAILY [facility] Last Admin: 06/15/20 10:18 Dose: 100 mg Documented by: Ondansetron HCl (Ondansetron 4 Mg/2 Ml Vial) 4 mg IV Q6H PRN PRN PRN Reason: NAUSEA/VOMITING Oxycodone HCl (Oxycodone 5 Mg Tablet) 10 mg PO Q4H PRN PRN PRN Reason: Pain Score 6-10 Last Admin: 06/15/20 10:21 Dose: 10 mg Documented by: Pantoprazole Sodium (Pantoprazole Sodium 20 Mg Tablet) 20 mg PO BID [facility] Last Admin: 06/15/20 23:23 Dose: 20 mg Documented by: Potassium Chloride ([facility] 10 Meq [facility]) [facility] Last Admin: 06/15/20 19:05 Dose: 10 meq Documented by: Ranolazine (Ranolazine 500 Mg Tablet) 500 mg PO BID [facility] Last Admin: 06/15/20 23:23 Dose: 500 mg Documented by: Sacubitril/Valsartan (Sacubitril/Valsartan 49-51 Mg Tablet) 1 each PO BID [facility] Last Admin: 06/15/20 23:22 Dose: 1 each Documented by: Sodium Chloride (0.9% Saline Lock 10 Ml Syringe) 10 - 40 ml IV UD PRN PRN Reason: SALINE FLUSH Last Admin: 06/15/20 13:17 Dose: 10 ml Documented by: Medical Necessity - Tobacco Use Smoking Status: Never smoker Assessment/Plan All Active Problems (Last Reviewed 06/11/20 @ 06:[address] Nam Robertson MD) Inability to walk (Acute) Hematoma of right thigh (Acute) Warfarin-induced coagulopathy (Acute) Acute blood loss anemia (Acute) NIKHIL (acute kidney injury) (Acute) 1. Acute right hip hematoma, no history of trauma Pelvic CT confirmed large hematoma with fluid level along the vastus lateralis as well as swelling of the right quadriceps muscle Orthopedic surgery following, recommends right knee immobilizer to have avoid aggravating hematoma 2. Acute blood loss anemia, status post 3 units packed RBC Hemoglobin remains stable at 8.6 Will continue to monitor 3. Chronic systolic CHF/ischemic cardiomyopathy, EF 25%/CAD status post CABG Continue on aspirin, statin, isosorbide, metoprolol, Entresto 4. NIKHIL on CKD stage III, resolved, at baseline Admitted with creatinine of 1.60, creatinine now is 0.79 5. Hypertension, controlled, on metoprolol and Entresto 6. DVT prophylaxis?SCDs on account of hematoma 7. Disposition: Awaiting DC to SNF when bed is available Inpatient E&M: 94676 Subs Hosp L2
[2020-06-16 09:17] VITALS: BP 106/89; PULSE 80; RESP 18; TEMP 36.9; O2SAT 96
[2020-06-16] MEDS: Folic Acid 1 MG Tablet PO (09:19)
[2020-06-16] MEDS: Aspirin E.C. 81 MG Tablet PO (09:19)
[2020-06-16] MEDS: Pantoprazole Sodium 20 MG Tablet PO (09:20)
[2020-06-16] MEDS: Methocarbamol 500 MG Tablet PO ×2 (09:21→22:17)
[2020-06-16] MEDS: Calcium Carb/Vitamin D 1 TABLET Tablet PO ×2 (09:22→18:39)
[2020-06-16 09:23] VITALS: PULSE 80
[2020-06-16] MEDS: Metoprolol(XL)Succ 100 MG Tablet PO (09:23)
[2020-06-16] MEDS: Cyanocobalamin 500 MCG Tablet PO (09:23)
[2020-06-16] MEDS: Gabapentin 600 MG Tablet PO ×4 (09:24→22:17)
[2020-06-16] MEDS: Ranolazine 500 MG Tablet PO ×2 (09:24→22:17)
[2020-06-16] MEDS: Furosemide 20 MG Tablet 60 MG PO (09:25)
--- NOTE | 2020-06-16 09:33 | NURSING ---
O.T here and getting pt OOB. This nurse took Purewhick out, offered BSC. Pt refused BSC but wondered why purewhick was taken out. This nurse explained while she is up in the chair it wont be in b/c staff can assist her onto BSC and should not relie just on the purewhick. Pt states that [facility] not they [facility]. Education given regarding when she should attempt to get up to BSC to void and not use purewhick.
--- NOTE | 2020-06-16 11:48 | NURSING ---
This nurse collected stool sample for occult bld per orders. This nurse called lab to make sure sample made it down there. Lab states that they received the stool sample.
[2020-06-16] MEDS: Acetaminophen 325 MG Tablet 650 MG PO (15:46)
[2020-06-16] MEDS: 0.9% Saline Lock 10 ML Syringe IV (15:53)
[2020-06-16 15:54] VITALS: BP 128/59; PULSE 86; RESP 20; TEMP 36.3; O2SAT 96
[2020-06-16] MEDS: Ferrous Sulfate 325 MG Tablet PO (18:40)
--- NOTE | 2020-06-16 18:41 | NURSING ---
Today around 1630, This nurse Cortexted Dr. Machado to inform her that stool occult was positive.
[2020-06-16 22:11] VITALS: BP 117/51; PULSE 77; RESP 18; TEMP 36.8; O2SAT 97
[2020-06-16] MEDS: Atorvastatin Calcium 80 MG Tablet PO (22:17)
[2020-06-16] MEDS: SACUBITRIL/VALSARTAN 49-51 MG TABLET 1 EACH PO (22:17)
[2020-06-16] MEDS: DiphenhydrAMINE 25 MG Capsule PO (22:17)
[2020-06-16] MEDS: Pantoprazole Sodium 40 MG Tablet PO (22:18)
[2020-06-17 03:24] VITALS: BP 130/49; PULSE 78; RESP 18; TEMP 36.9; O2SAT 95
[2020-06-17 05:54] LABS: Differential Indicated MANUAL DIFF; Hematocrit 28.7 % (37-47); Hemoglobin 8.8 g/dL (12.0-15.0); Mean Corp Hgb Conc 30.7 g/dL (32-36); Mean Corpuscular Hgb 28.6 pg (27.0-32.0); Mean Corpuscular Volume 93.2 fL (81-99); POSITIVE COUNT YES; POSITIVE MORPHOLOGY YES; Platelet Count 158 K/mm3 (150-450); RBC Distribution Width CV 23.2 % (11.6-14.6); RBC Distribution Width SD 81.2 fl (35.1-43.9); Red Blood Count 3.08 M/mm3 (4.2-5.4); White Blood Count 6.4 K/mm3 (4.4-11.0)
[2020-06-17 06:14] LABS: Neutrophil-Segmented 49 % (47-70); Total Cells Counted 100 (MANUAL DIFF)
[2020-06-17 06:15] LABS: Absolute Lymphocyte Count 2.11 X10^3/uL (0.83-4.51); Absolute Neutrophil Count 3.7 X10^3/uL (2.0-7.7); Lymphocyte 33 % (19-41); Metamyelocyte 2 % (0-1); Monocyte 5 % (0-10); Myelocyte 2 (0-0); Neutrophil-Band 8 % (0-5); Promyelocyte 3 (0-0)
[2020-06-17 06:16] LABS: Hypochromasia 1+; Macrocytosis RARE; Microcytosis RARE; Platelet Estimate SLT DEC (ADEQ); Polychromasia RARE; Stomatocyte RARE
--- NOTE | 2020-06-17 08:03 | PCM.CONS.GEN ---
Reason for Consult Date of Consultation: 06/17/20 History of Present Illness: The patient is a 79 year old F currently on MedSurg 3 due to right thigh hematoma which has been improving. Patient did have some anemia due to this. Patient had a fecal occult test that was positive as well. Patient states prior to the hematoma she also had one at her PCPs office that was positive. Patient denies seeing any gross blood in her stools. States her stools are usually black due to taking iron. Patient states her last colonoscopy and EGD was about [address] Vargas and she may have also had to have her esophagus dilated unsure about what was found on her colonoscopy if she had any polyps or not. Currently patient denies any abdominal pain nausea or vomiting. Patient's vital signs are stable. Patient's hemoglobin is stable mid eights after receiving couple units of packed red blood cells a few days ago. Patient currently is not on any anticoagulation due to the hematoma however was previously on Coumadin due to history of DVTs. Past Medical History Past Medical History (Chronic Problems): Chronic Problems (Last Reviewed 06/11/20 @ 06:[address] Nam Robertson MD) Primary osteoarthritis of left knee (Chronic) Compression fracture of T12 vertebra (Chronic) LBBB (left bundle branch block) (Chronic) Aortocoronary bypass status (Chronic ~10/09/02) CABG x6- Sequential SVG in Sequence to the LAD, Descending Diagonal, CX/CX, and RCA/RCA 10/09/02 Atherosclerotic heart disease of [place] coronary artery without angina pectoris (Chronic) Atherosclerosis of coronary artery bypass graft(s), unspecified, with other forms of angina pectoris (Chronic) CABG x6- Sequential SVG in Sequence to the LAD, Descending Diagonal, CX/CX, and RCA/RCA 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 Nam Robertson MD) LBBB (left bundle branch block) (Chronic) I44.7 Atherosclerotic heart disease of [place] coronary artery without angina pectoris (Chronic) I25.10 Atherosclerosis of coronary artery bypass graft(s), unspecified, with other forms of angina pectoris (Chronic) I25.708 CABG x6- Sequential SVG in Sequence to the LAD, Descending Diagonal, CX/CX, and RCA/RCA 10/09/02 Benign hypertension (Chronic) I10 Obesity (Chronic) E66.9 Diabetes mellitus, type 2 (Chronic) E11.9 Systolic CHF, chronic (Chronic) I50.22 Thromboembolic disorder (Chronic) I74.9 Ischemic cardiomyopathy (Chronic) I25.5 Abnormal stress test R94.39 GERD (gastroesophageal reflux disease) K21.9 History of DVT (deep vein thrombosis) Z86.718 History of esophageal stricture Z87.19 History of pulmonary embolism Z86.711 Hyperlipidemia (Inactive) E78.5 Allergies doxycycline Allergy (Mild, Verified 06/10/20 20:15) Swelling Sulfa (Sulfonamide Antibiotics) Allergy (Verified 06/10/20 20:15) Rash tetracycline [Tetracycline] Allergy (Verified 06/10/20 20:15) Swelling dicyclomine Adverse Reaction (Verified 06/10/20 20:15) Other NSAIDS (Non-Steroidal Anti-Inflamma Adverse Reaction (Verified 06/10/20 20:15) Other Penicillins Adverse Reaction (Verified 06/10/20 20:15) Unknown Home Medications: Ambulatory Orders Medication Instructions Recorded Aspirin E.C. [Ecotrin] 81 mg PO DAILY@0803/08/17 Calcium Carbonate/Vitamin D3 1 ea PO BID 03/08/17 [Calcium 500-Vit D3 600 Caplet] Gabapentin [Neurontin] 600 mg PO 4X/DAY 03/08/17 Omeprazole [Prilosec] 20 mg PO BID 03/08/17 Cyanocobalamin [Vitamin B12] 500 mcg PO DAILY@0812/07/17 Methocarbamol 500 mg PO BID 02/27/19 DiphenhydrAMINE [Benadryl] 25 mg PO QHS 05/28/19 Alendronate Sodium 70 mg PO QWEEK 09/17/19 isosorbide mononitrate 120 mg 120 mg PO DAILY #90 tab 10/10/19 tablet,extended release 24 hr Folic Acid 0.8 mg PO DAILY@0800 11/08/19 metoprolol succinate 100 mg 100 mg PO DAILY #90 tab 12/01/19 tablet,extended release 24 hr nitroglycerin 0.4 mg sublingual 0.4 mg SUBLINGUAL Q5-15M PRN #25 12/12/19 tablet tab warfarin 3 mg tablet 3 mg PO DAILY #90 tab 01/31/20 warfarin 1 mg tablet 1 mg PO DAILY #90 tab 02/21/20 buprenorphine 7.5 mcg/hour weekly 1 patch TRANSDERMAL Q7D 03/15/20 transdermal patch potassium chloride 10 mEq 10 meq PO BID 03/15/20 capsule,extended release enoxaparin 100 mg/mL subcutaneous 100 mg SC Q12H #10 ml 05/17/20 syringe Ferrous Sulfate 325 mg PO BIDCM 06/11/20 Furosemide [Lasix] 60 mg PO DAILY 06/11/20 Losartan Potassium [Cozaar] 100 mg PO DAILY 06/11/20 Ranolazine [Ranolazine ER] 500 mg PO BID 06/11/20 Rosuvastatin Calcium 40 mg PO DAILY 06/11/20 Sacubitril/Valsartan 49-51 mg 1 tab PO BID 06/11/20 [Entresto 49 mg-51 mg Tablet] Ubidecarenone [Co Q-10] 10 mg PO DAILY 06/11/20 Surgical History: Surgical History (Last Reviewed 06/11/20 @ 07:[address] Nam Robertson MD) Aortocoronary bypass status (Chronic) Onset Date: ~10/09/02 Z95.1 CABG x6- Sequential SVG in Sequence to the LAD, Descending Diagonal, CX/CX, and RCA/RCA 02 H/O arthroscopic knee surgery Z98.890 left knee 2001 History of partial knee replacement Z96.659 right History of total hysterectomy Z90.710 History of tubal ligation Z98.51 Hx of bilateral breast reduction surgery Z98.890 Hx of cholecystectomy Z90.49 Surgical History: appendectomy, cholecystectomy, coronary bypass surgery - 2002, hysterectomy, - - Breast reduction, right knee partial replacement, left knee repair, perforated bowel repair. kyphoplasty Psychiatric History: No pertinent psych hx HOUSING RELOCATION History: No pertinent HOUSING RELOCATION history Lives: With Family Smoking Status: Never smoker - *Family History Maternal Family History: Family History (Last Reviewed 06/11/20 @ 07:[address] Nam Robertson MD) Mother Myocardial infarction Hypertension Heart disease History of coronary artery bypass graft Brother Hypertension History of coronary artery bypass graft Father Cancer History Items: Heart Disease, Hypertension Paternal Family History: Family History (Last Reviewed 06/11/20 @ 07:[address] Nam Robertson MD) Mother Myocardial infarction Hypertension Heart disease History of coronary artery bypass graft Brother Hypertension History of coronary artery bypass graft Father Cancer History Items: Cancer Review of Systems Constitutional: Denies: Anorexia Eyes: Denies: Blurred vision HEENT: Denies: Difficulty Swallowing Cardiovascular: Denies: Chest Pain Respiratory: Denies: Cough Gastrointestinal: Denies: Abdominal Pain Genitourinary: Denies: Dysuria Musculoskeletal: Reports: - - Right thigh hematoma, resolving ecchymosis Patient Problems: Active and Suspected Problems (Last Reviewed 06/11/20 @ 06:[address] Nam Robertson MD) Inability to walk (Acute) Hematoma of right thigh (Acute) Warfarin-induced coagulopathy (Acute) Acute blood loss anemia (Acute) NIKHIL (acute kidney injury) (Acute) - Physical Exam Vitals/I&O's: Vital Signs Temp Pulse Resp BP Pulse Ox 98.4 F 78 18 130/49 H 95 06/17/20 03:24 06/17/20 03:24 06/17/20 03:24 06/17/20 03:24 06/17/20 03:24 Oxygen Delivery Method Room Air Weight: 208 lb 12.444 oz Body Mass Index (BMI) 35.8 Intake and Output for Last 24 Hours 06/16/20 06/16/20 06/17/20 00:59 23:59 23:59 Intake Total 500 / 500 Output Total Balance 500 / 500 General: Alert, Oriented x3, Cooperative, No apparent distress HEENT: Atraumatic Lungs: Normal air movement Cardiovascular: Regular rate Abdomen: Soft, Non Tender, Non-Distended Extremities: No clubbing, - - Right lateral thigh hematoma, resolving ecchymosis Neurological: Cranial nerves II-XII grossly intact Psych/Mental Status: Normal Affect Microbiology Past 72 Hours 06/16/20 11:00 Stool Stool Occult Blood (DEMETRIUS) - Final Occult Blood Positive Laboratory Results 06/17/20 05:35: WBC 6.4, RBC 3.08 L, Hgb 8.8 L, Hct 28.7 L, MCV 93.2, MCH 28.6, MCHC 30.7 L, RDW Std Deviation 81.2 H, RDW Coeff of Maty 23.2 H, Plt Count 158, MPV TNP, Neut % (Auto) Not Reportable, Absolute Neuts (auto) 3.7, Absolute Lymphs (auto) 2.11, Total Counted 100, Neutrophils % (Manual) 49, Band Neutrophils % 8 H, Lymphocytes % (Manual) 33, Monocytes % (Manual) 5, Metamyelocytes % 2 H, Myelocytes % 2 H, Promyelocytes % 3 H, Diff Path Review May foll, Platelet Estimate SLT DEC, Polychromasia RARE, Hypochromasia 1+, Microcytosis RARE, Macrocytosis RARE, Stomatocytes RARE Current Medications Acetaminophen (Acetaminophen 325 Mg Tablet) 650 mg PO Q6H PRN PRN PRN Reason: Pain Score 1-10/Temp > 100.7 F Last Admin: 06/16/20 15:46 Dose: 650 mg Documented by: Aspirin (Aspirin E.C. 81 Mg Tablet) 81 mg PO DAILY@0800 [facility] Last Admin: 06/16/20 09:19 Dose: 81 mg Documented by: Atorvastatin Calcium (Atorvastatin Calcium 80 Mg Tablet) 80 mg PO QHS [facility] Last Admin: 06/16/20 22:17 Dose: 80 mg Documented by: Calcium/Vitamin D (Calcium Carb/Vitamin D 1 Tablet Tablet) [facility] Last Admin: 06/16/20 18:39 Dose: 1 tablet Documented by: Cyanocobalamin (Cyanocobalamin 500 Mcg Tablet) 500 mcg PO DAILY@0800 [facility] Last Admin: 06/16/20 09:23 Dose: 500 mcg Documented by: Diphenhydramine HCl (Diphenhydramine 25 Mg Capsule) 25 mg PO QHS [facility] Last Admin: 06/16/20 22:17 Dose: 25 mg Documented by: Ferrous Sulfate (Ferrous Sulfate 325 Mg Tablet) 325 mg PO BID@1200,1700 [facility] Last Admin: 06/16/20 18:40 Dose: 325 mg Documented by: Folic Acid (Folic Acid 1 Mg Tablet) 1 mg PO DAILY@0800 [facility] Last Admin: 06/16/20 09:19 Dose: 1 mg Documented by: Furosemide (Furosemide 20 Mg Tablet) 60 mg PO DAILY [facility] Last Admin: 06/16/20 09:25 Dose: 60 mg Documented by: Gabapentin (Gabapentin 600 Mg Tablet) 600 mg PO 4X/DAY [facility] Last Admin: 06/16/20 22:17 Dose: 600 mg Documented by: Isosorbide Mononitrate (Isosorbide Mononitrate 120 Mg Tablet) 120 mg PO DAILY [facility] Last Admin: 06/16/20 09:23 Dose: 120 mg Documented by: Melatonin (Melatonin 3 Mg Tablet) 3 mg PO QHS PRN PRN PRN Reason: INSOMNIA Last Admin: 06/11/20 21:38 Dose: 3 mg Documented by: Methocarbamol (Methocarbamol 500 Mg Tablet) 500 mg PO BID [facility] Last Admin: 06/16/20 22:17 Dose: 500 mg Documented by: Metoprolol Succinate (Metoprolol(Xl)Succ 100 Mg Tablet) 100 mg PO DAILY [facility] Last Admin: 06/16/20 09:23 Dose: 100 mg Documented by: Ondansetron HCl (Ondansetron 4 Mg/2 Ml Vial) 4 mg IV Q6H PRN PRN PRN Reason: NAUSEA/VOMITING Oxycodone HCl (Oxycodone 5 Mg Tablet) 10 mg PO Q4H PRN PRN PRN Reason: Pain Score 6-10 Last Admin: 06/15/20 10:21 Dose: 10 mg Documented by: Pantoprazole Sodium (Pantoprazole Sodium 40 Mg Tablet) 40 mg PO BID [facility] Last Admin: 06/16/20 22:18 Dose: 40 mg Documented by: Potassium Chloride (Potassium Chloride 10 Meq Tablet) [facility] Last Admin: 06/16/20 18:39 Dose: 10 meq Documented by: Ranolazine (Ranolazine 500 Mg Tablet) 500 mg PO BID [facility] Last Admin: 06/16/20 22:17 Dose: 500 mg Documented by: Sacubitril/Valsartan (Sacubitril/Valsartan 49-51 Mg Tablet) 1 each PO BID [facility] Last Admin: 06/16/20 22:17 Dose: 1 each Documented by: Sodium Chloride (0.9% Saline Lock 10 Ml Syringe) 10 - 40 ml IV UD PRN PRN Reason: SALINE FLUSH Last Admin: 06/16/20 15:53 Dose: 10 ml Documented by: Assessment/Plan All Active Problems (Last Reviewed 06/11/20 @ 06:[address] Nam Robertson MD) Inability to walk (Acute) Hematoma of right thigh (Acute) Warfarin-induced coagulopathy (Acute) Acute blood loss anemia (Acute) NIKHIL (acute kidney injury) (Acute) 79-year-old female with right thigh resolving hematoma, anemia, positive fecal occult blood, occasional dysphagia history of dilatation of the esophagus per patient. Discussed with patient do not believe that she needs to have the colonoscopy while she is in the hospital we can do this as an outpatient as patient is stable and has not actually seen any gross blood likely her anemia was more related to her hematoma. Patient states she had a colonoscopy for about [address] Vargas unsure findings but states that she did have an EGD at that time with dilation. Patient also states she has been having issues with food sticking in her lower esophagus usually bread or meat--does not happen every day. So she would be interested in an EGD and a colonoscopy at that time with possible dilatation. Will obtain previous EGD and colonoscopy reports. Lissette Nam M.D. Pager: [phone] [facility] [address] [place] [address], Outpatient [place], [address] [place] [address] Office: [phone] Inpatient E&M: 01055 Init Hosp L2
[2020-06-17 08:10] VITALS: BP 134/58; PULSE 84; RESP 16; TEMP 37.7; O2SAT 95
[2020-06-17] MEDS: SACUBITRIL/VALSARTAN 49-51 MG TABLET 1 EACH PO ×2 (08:13→21:36)
[2020-06-17] MEDS: Gabapentin 600 MG Tablet PO ×4 (08:13→21:36)
[2020-06-17] MEDS: Folic Acid 1 MG Tablet PO (08:13)
[2020-06-17] MEDS: Aspirin E.C. 81 MG Tablet PO (08:13)
[2020-06-17] MEDS: Cyanocobalamin 500 MCG Tablet PO (08:14)
[2020-06-17] MEDS: Furosemide 20 MG Tablet 60 MG PO (08:14)
[2020-06-17] MEDS: Calcium Carb/Vitamin D 1 TABLET Tablet PO ×2 (08:14→17:20)
[2020-06-17] MEDS: Ranolazine 500 MG Tablet PO ×2 (08:15→21:36)
[2020-06-17] MEDS: Pantoprazole Sodium 40 MG Tablet PO ×2 (08:15→21:36)
[2020-06-17] MEDS: Methocarbamol 500 MG Tablet PO ×2 (08:15→21:36)
--- NOTE | 2020-06-17 08:19 | PCM.PN.HOSP ---
Patient Problems: Active and Suspected Problems (Last Reviewed 06/11/20 @ 06:[address] Nam Robertson MD) Inability to walk (Acute) Hematoma of right thigh (Acute) Warfarin-induced coagulopathy (Acute) Acute blood loss anemia (Acute) NIKHIL (acute kidney injury) (Acute) Reason for Visit: right hip pain Subjective: Patient is a 79-year-old lady admitted with acute right hip pain pelvic CT demonstrated large hematoma with fluid level along the vastus lateralis as well as swelling of the right quadriceps muscles Objective: GENERAL: cooperative HEENT: Atraumatic; EYES; Anicteric, Normal Conjunctiva NECK; supple, normal thyroid, RESPIRATORY: Diminished to auscultation CARDIOVASCULAR: Regular S1 S2, GI: soft, normoactive bowel sounds, : No Renal angle tenderness; EXTREMITIES: No edema, no clubbing, MUSCULOSKELETAL: Right hip bruising and hematoma NEURO: Awake; no lateralizing signs. SKIN: As described above PSYCH; Flat affect Vitals/I&O's: Vital Signs Temp Pulse Resp BP Pulse Ox 98.4 F 78 18 130/49 H 95 06/17/20 03:24 06/17/20 03:24 06/17/20 03:24 06/17/20 03:24 06/17/20 03:24 Oxygen Delivery Method Room Air Weight: 94.7 kg Body Mass Index (BMI) 35.8 Intake and Output for Last 24 Hours 06/16/20 06/16/20 06/17/20 00:59 23:59 23:59 Intake Total 500 / 500 Output Total Balance 500 / 500 Microbiology Past 72 Hours 06/16/20 11:00 Stool Stool Occult Blood (DEMETRIUS) - Final Occult Blood Positive Laboratory Results 06/17/20 05:35: WBC 6.4, RBC 3.08 L, Hgb 8.8 L, Hct 28.7 L, MCV 93.2, MCH 28.6, MCHC 30.7 L, RDW Std Deviation 81.2 H, RDW Coeff of Maty 23.2 H, Plt Count 158, MPV TNP, Neut % (Auto) Not Reportable, Absolute Neuts (auto) 3.7, Absolute Lymphs (auto) 2.11, Total Counted 100, Neutrophils % (Manual) 49, Band Neutrophils % 8 H, Lymphocytes % (Manual) 33, Monocytes % (Manual) 5, Metamyelocytes % 2 H, Myelocytes % 2 H, Promyelocytes % 3 H, Diff Path Review May foll, Platelet Estimate SLT DEC, Polychromasia RARE, Hypochromasia 1+, Microcytosis RARE, Macrocytosis RARE, Stomatocytes RARE Current Medications Acetaminophen (Acetaminophen 325 Mg Tablet) 650 mg PO Q6H PRN PRN PRN Reason: Pain Score 1-10/Temp > 100.7 F Last Admin: 06/16/20 15:46 Dose: 650 mg Documented by: Aspirin (Aspirin E.C. 81 Mg Tablet) 81 mg PO DAILY@0800 [facility] Last Admin: 06/16/20 09:19 Dose: 81 mg Documented by: Atorvastatin Calcium (Atorvastatin Calcium 80 Mg Tablet) 80 mg PO QHS [facility] Last Admin: 06/16/20 22:17 Dose: 80 mg Documented by: Calcium/Vitamin D (Calcium Carb/Vitamin D 1 Tablet Tablet) 1 tablet PO BIDCM [facility] Last Admin: 06/16/20 18:39 Dose: 1 tablet Documented by: Cyanocobalamin (Cyanocobalamin 500 Mcg Tablet) 500 mcg PO DAILY@0800 [facility] Last Admin: 06/16/20 09:23 Dose: 500 mcg Documented by: Diphenhydramine HCl (Diphenhydramine 25 Mg Capsule) 25 mg PO QHS [facility] Last Admin: 06/16/20 22:17 Dose: 25 mg Documented by: Ferrous Sulfate (Ferrous Sulfate 325 Mg Tablet) 325 mg PO BID@1200,1700 [facility] Last Admin: 06/16/20 18:40 Dose: 325 mg Documented by: Folic Acid (Folic Acid 1 Mg Tablet) 1 mg PO DAILY@0800 [facility] Last Admin: 06/16/20 09:19 Dose: 1 mg Documented by: Furosemide (Furosemide 20 Mg Tablet) 60 mg PO DAILY [facility] Last Admin: 06/16/20 09:25 Dose: 60 mg Documented by: Gabapentin (Gabapentin 600 Mg Tablet) 600 mg PO 4X/DAY [facility] Last Admin: 06/16/20 22:17 Dose: 600 mg Documented by: Isosorbide Mononitrate (Isosorbide Mononitrate 120 Mg Tablet) 120 mg PO DAILY [facility] Last Admin: 06/16/20 09:23 Dose: 120 mg Documented by: Melatonin (Melatonin 3 Mg Tablet) 3 mg PO QHS PRN PRN PRN Reason: INSOMNIA Last Admin: 06/11/20 21:38 Dose: 3 mg Documented by: Methocarbamol (Methocarbamol 500 Mg Tablet) 500 mg PO BID [facility] Last Admin: 06/16/20 22:17 Dose: 500 mg Documented by: Metoprolol Succinate (Metoprolol(Xl)Succ 100 Mg Tablet) 100 mg PO DAILY [facility] Last Admin: 06/16/20 09:23 Dose: 100 mg Documented by: Ondansetron HCl (Ondansetron 4 Mg/2 Ml Vial) 4 mg IV Q6H PRN PRN PRN Reason: NAUSEA/VOMITING Oxycodone HCl (Oxycodone 5 Mg Tablet) 10 mg PO Q4H PRN PRN PRN Reason: Pain Score 6-10 Last Admin: 06/15/20 10:21 Dose: 10 mg Documented by: Pantoprazole Sodium (Pantoprazole Sodium 40 Mg Tablet) 40 mg PO BID [facility] Last Admin: 06/16/20 22:18 Dose: 40 mg Documented by: Potassium Chloride (Potassium Chloride 10 Meq Tablet) [facility] Last Admin: 06/16/20 18:39 Dose: 10 meq Documented by: Ranolazine (Ranolazine 500 Mg Tablet) 500 mg PO BID [facility] Last Admin: 06/16/20 22:17 Dose: 500 mg Documented by: Sacubitril/Valsartan (Sacubitril/Valsartan 49-51 Mg Tablet) 1 each PO BID [facility] Last Admin: 06/16/20 22:17 Dose: 1 each Documented by: Sodium Chloride (0.9% Saline Lock 10 Ml Syringe) 10 - 40 ml IV UD PRN PRN Reason: SALINE FLUSH Last Admin: 06/16/20 15:53 Dose: 10 ml Documented by: Medical Necessity - Tobacco Use Smoking Status: Never smoker Assessment/Plan All Active Problems (Last Reviewed 06/11/20 @ 06:[address] Nam Robertson MD) Inability to walk (Acute) Hematoma of right thigh (Acute) Warfarin-induced coagulopathy (Acute) Acute blood loss anemia (Acute) NIKHIL (acute kidney injury) (Acute) Patient is a 79-year-old lady admitted with acute right hip pain pelvic CT demonstrated large hematoma with fluid level along the vastus lateralis as well as swelling of the right quadriceps muscles 1. Acute right hip hematoma ?Patient apparently does not have any history of trauma. She was however on systemic anticoagulation with Coumadin which is being bridged with Lovenox. CT of the pelvis obtained on admission demonstrated Large hematoma with a fluid fluid level involving the vastus lateralis muscle as described with increased markings in the surrounding subcutaneous fat was seen in consultation by orthopedic surgery recommended right knee immobilizer 2. Acute blood loss anemia -secondary to above patient has been transfused with 3 unit PRBC following admission. Patient was also found to have guaiac positive stools placed on PPI with consultation placed to general surgery. Plan is for patient to undergo endoscopic evaluation as outpatient when stable 3. Chronic congestive heart failure with reduced ejection fraction of 25% Patient is on Entresto 4. Coronary artery disease -with EF of 25% and subsequent ischemic cardiomyopathy status post CABG ?Patient is on aspirin statin therapy metoprolol as well as isosorbide 5. Hypertension - Blood pressure controlled, home medications continued with dose adjustment as needed 6. Dyslipidemia -Patient is on statin therapy, continued at home dose 7. Kidney injury ?Resolved 8. Physical deconditioning - Requested for PT OT eval and social services director to assist with discharge planning 9. DVT prophylaxis ?SCDs Advance planning; did discuss with the patient and family regarding advanced directives as well as CODE STATUS. Did explain the various scenarios involved ( FULL CODE, DNR CCA, DNR CCA with no intubation, and DNR CC and what each meant) patient elected to main full code with CPR and intubation if warranted. Order was placed. Time spent on discussion 18 minutes. Inpatient E&M: [id number] [facility] Hosp L2
[2020-06-17 08:29] VITALS: BP 134/58; PULSE 84
[2020-06-17] MEDS: Metoprolol(XL)Succ 100 MG Tablet PO (08:29)
--- NOTE | 2020-06-17 10:48 | CASEMGMT ---
Social Work Note SW spoke with Katharine in TCU. Katharine states Siomara is making her resubmit clinicals from Wednesday and she got the clinicals resubmitted. Plan: TCU pending pre-cert [facility] [employer], [employer]
[2020-06-17 11:55] LABS: Pathologist Review Reviewed
[2020-06-17 11:55] LABS: Pathologist Review Reviewed
[2020-06-17 11:56] LABS: Pathologist Review Reviewed
[2020-06-17] MEDS: Ferrous Sulfate 325 MG Tablet PO ×2 (13:19→17:20)
[2020-06-17 14:50] VITALS: BP 98/54; PULSE 81; RESP 18; TEMP 36.8; O2SAT 98
[2020-06-17 20:40] VITALS: BP 115/50; PULSE 79; RESP 18; TEMP 36.7; O2SAT 98
[2020-06-17] MEDS: Atorvastatin Calcium 80 MG Tablet PO (21:36)
[2020-06-17] MEDS: DiphenhydrAMINE 25 MG Capsule PO (21:36)
[2020-06-17] MEDS: Menthol/Lanolin/Calamine/Znox 113 GM Tube 1 APPLIC TOPICAL (23:10)
[2020-06-18 03:33] VITALS: BP 102/45; PULSE 72; RESP 18; TEMP 36.4; O2SAT 96
[2020-06-18] MEDS: Menthol/Lanolin/Calamine/Znox 113 GM Tube 1 APPLIC TOPICAL ×2 (06:14→14:39)
--- NOTE | 2020-06-18 07:27 | PN_ITS ---
Patient Problems: Active and Suspected Problems (Last Reviewed 06/11/20 @ 06:[address] Nam Robertson MD) Inability to walk (Acute) Hematoma of right thigh (Acute) Warfarin-induced coagulopathy (Acute) Acute blood loss anemia (Acute) NIKHIL (acute kidney injury) (Acute) Reason for Visit: Right hip pain Subjective: Patient is a 79-year-old lady admitted with acute right hip pain pelvic CT demonstrated large hematoma with fluid level along the vastus lateralis as well as swelling of the right quadriceps muscles Hospital been discharged to a jail facility however insurance company denied patient's request to be discharged to jail facility. Patient will be discharged home with home health Objective: GENERAL: cooperative HEENT: Atraumatic; EYES; Anicteric, Normal Conjunctiva NECK; supple, normal thyroid, RESPIRATORY: Diminished to auscultation CARDIOVASCULAR: Regular S1 S2, GI: soft, normoactive bowel sounds, : No Renal angle tenderness; EXTREMITIES: No edema, no clubbing, MUSCULOSKELETAL: Right hip bruising and hematoma NEURO: Awake; no lateralizing signs. SKIN: As described above PSYCH; Flat affect Vitals/I&O's: Vital Signs Temp Pulse Resp BP Pulse Ox 97.5 F L 72 18 102/45 L 96 06/18/20 03:33 06/18/20 03:33 06/18/20 03:33 06/18/20 03:33 06/18/20 03:33 Oxygen Delivery Method Room Air Weight: 94.7 kg Body Mass Index (BMI) 35.8 Intake and Output for Last 24 Hours 06/16/20 06/17/20 06/18/20 23:59 23:59 23:59 Intake Total 1700 / 1700 200 / 200 Output Total Balance 1700 / 1700 200 / 200 Microbiology Past 72 Hours 06/16/20 11:00 Stool Stool Occult Blood (DEMETRIUS) - Final Occult Blood Positive Laboratory Results 06/15/20 07:55: Diff Path Review Reviewed 06/16/20 05:02: Diff Path Review Reviewed 06/17/20 05:35: Diff Path Review Reviewed Current Medications Acetaminophen (Acetaminophen 325 Mg Tablet) 650 mg PO Q6H PRN PRN PRN Reason: Pain Score 1-10/Temp > 100.7 F Last Admin: 06/16/20 15:46 Dose: 650 mg Documented by: Aspirin (Aspirin E.C. 81 Mg Tablet) 81 mg PO DAILY@0800 [facility] Last Admin: 06/17/20 08:13 Dose: 81 mg Documented by: Atorvastatin Calcium (Atorvastatin Calcium 80 Mg Tablet) 80 mg PO QHS [facility] Last Admin: 06/17/20 21:36 Dose: 80 mg Documented by: Calamine/Phenol (Menthol/Lanolin/Calamine/Znox 113 Gm Tube) 1 applic TOPICAL TID [facility]; Protocol Last Admin: 06/18/20 06:14 Dose: 1 applicatio Documented by: Calcium/Vitamin D (Calcium Carb/Vitamin D 1 Tablet Tablet) [facility] Last Admin: 06/17/20 17:20 Dose: 1 tablet Documented by: Cyanocobalamin (Cyanocobalamin 500 Mcg Tablet) 500 mcg PO DAILY@0800 [facility] Last Admin: 06/17/20 08:14 Dose: 500 mcg Documented by: Diphenhydramine HCl (Diphenhydramine 25 Mg Capsule) 25 mg PO QHS [facility] Last Admin: 06/17/20 21:36 Dose: 25 mg Documented by: Ferrous Sulfate (Ferrous Sulfate 325 Mg Tablet) 325 mg PO BID@1200,1700 [facility] Last Admin: 06/17/20 17:20 Dose: 325 mg Documented by: Folic Acid (Folic Acid 1 Mg Tablet) 1 mg PO DAILY@0800 [facility] Last Admin: 06/17/20 08:13 Dose: 1 mg Documented by: Furosemide (Furosemide 20 Mg Tablet) 60 mg PO DAILY [facility] Last Admin: 06/17/20 08:14 Dose: 60 mg Documented by: Gabapentin (Gabapentin 600 Mg Tablet) 600 mg PO 4X/DAY [facility] Last Admin: 06/17/20 21:36 Dose: 600 mg Documented by: Isosorbide Mononitrate (Isosorbide Mononitrate 120 Mg Tablet) 120 mg PO DAILY [facility] Last Admin: 06/17/20 08:15 Dose: 120 mg Documented by: Melatonin (Melatonin 3 Mg Tablet) 3 mg PO QHS PRN PRN PRN Reason: INSOMNIA Last Admin: 06/11/20 21:38 Dose: 3 mg Documented by: Methocarbamol (Methocarbamol 500 Mg Tablet) 500 mg PO BID [facility] Last Admin: 06/17/20 21:36 Dose: 500 mg Documented by: Metoprolol Succinate (Metoprolol(Xl)Succ 100 Mg Tablet) 100 mg PO DAILY [facility] Last Admin: 06/17/20 08:29 Dose: 100 mg Documented by: Ondansetron HCl (Ondansetron 4 Mg/2 Ml Vial) 4 mg IV Q6H PRN PRN PRN Reason: NAUSEA/VOMITING Oxycodone HCl (Oxycodone 5 Mg Tablet) 10 mg PO Q4H PRN PRN PRN Reason: Pain Score 6-10 Last Admin: 06/15/20 10:21 Dose: 10 mg Documented by: Pantoprazole Sodium (Pantoprazole Sodium 40 Mg Tablet) 40 mg PO BID [facility] Last Admin: 06/17/20 21:36 Dose: 40 mg Documented by: Potassium Chloride (Potassium Chloride 10 Meq Tablet) [facility] Last Admin: 06/17/20 17:20 Dose: 10 meq Documented by: Ranolazine (Ranolazine 500 Mg Tablet) 500 mg PO BID [facility] Last Admin: 06/17/20 21:36 Dose: 500 mg Documented by: Sacubitril/Valsartan (Sacubitril/Valsartan 49-51 Mg Tablet) 1 each PO BID [facility] Last Admin: 06/17/20 21:36 Dose: 1 each Documented by: Sodium Chloride (0.9% Saline Lock 10 Ml Syringe) 10 - 40 ml IV UD PRN PRN Reason: SALINE FLUSH Last Admin: 06/16/20 15:53 Dose: 10 ml Documented by: STROKE Vital Signs/Narrative: Vital Signs Temp Pulse Resp BP Pulse Ox 06/18/20 03:33 97.5 F L 72 18 102/45 L 96 Medical Necessity - Tobacco Use Smoking Status: Never smoker Assessment/Plan All Active Problems (Last Reviewed 06/11/20 @ 06:[address] Nam Robertson MD) Inability to walk (Acute) Hematoma of right thigh (Acute) Warfarin-induced coagulopathy (Acute) Acute blood loss anemia (Acute) NIKHIL (acute kidney injury) (Acute) Patient is a 79-year-old lady admitted with acute right hip pain pelvic CT demonstrated large hematoma with fluid level along the vastus lateralis as well as swelling of the right quadriceps muscles 1. Acute right hip hematoma ?Patient apparently does not have any history of trauma. She was however on systemic anticoagulation with Coumadin which is being bridged with Lovenox. CT of the pelvis obtained on admission demonstrated Large hematoma with a fluid fluid level involving the vastus lateralis muscle as described with increased markings in the surrounding subcutaneous fat was seen in consultation by orthopedic surgery recommended right knee immobilizer -06/18/2020 symptoms fairly controlled. Plan is for patient to be discharged home with home health 2. Acute blood loss anemia -secondary to above patient has been transfused with 3 unit PRBC following admission. Patient was also found to have guaiac positive stools placed on PPI with consultation placed to general surgery. Plan is for patient to undergo endoscopic evaluation as outpatient when stable 3. Chronic congestive heart failure with reduced ejection fraction of 25% Patient is on Entresto 4. Coronary artery disease -with EF of 25% and subsequent ischemic cardiomyopathy status post CABG ?Patient is on aspirin statin therapy metoprolol as well as isosorbide 5. Hypertension - Blood pressure controlled, home medications continued with dose adjustment as needed 6. Dyslipidemia -Patient is on statin therapy, continued at home dose 7. Kidney injury ?Kidney function did worsen from from admission ; repeat labs ordered; patient disposition will be based on lab results 8. Physical deconditioning - Requested for PT OT eval and social service technician to assist with discharge planning 9. DVT prophylaxis ?SCDs Inpatient E&M: 35813 Subs Hosp L2
--- NOTE | 2020-06-18 09:08 | CASEMGMT ---
Social Work Note SW received message from Katharine in TCU stating pt was denied. Peer to peer number . Reference number: [id number]. SW reviewed PT/OT, pt walked 175ft contact guard yesterday with PT/OT. SW updated physician on denial. Pt now stating she wants to return home at discharge. SW in to speak with pt. Pt confirms that she wants to discharge home now with C. Pt states she's had [facility] in the past and agreeable to using [facility] again. SW updated RN CM on request for HHC. SW placed a call to Katharine in TCU and updated her that pt will be returning home. Plan: Home with HHC Mercy French MSW, SPRAY PAINTER
[2020-06-18 09:33] VITALS: BP 108/58
[2020-06-18 09:34] VITALS: BP 108/58; PULSE 84; RESP 14; TEMP 36.3; O2SAT 97
[2020-06-18] MEDS: Cyanocobalamin 500 MCG Tablet PO (09:36)
[2020-06-18] MEDS: Methocarbamol 500 MG Tablet PO (09:36)
[2020-06-18] MEDS: Pantoprazole Sodium 40 MG Tablet PO (09:36)
[2020-06-18] MEDS: Furosemide 20 MG Tablet 60 MG PO (09:36)
[2020-06-18] MEDS: Calcium Carb/Vitamin D 1 TABLET Tablet PO (09:36)
[2020-06-18] MEDS: Folic Acid 1 MG Tablet PO (09:37)
[2020-06-18] MEDS: Ranolazine 500 MG Tablet PO (09:37)
[2020-06-18] MEDS: Aspirin E.C. 81 MG Tablet PO (09:37)
[2020-06-18] MEDS: Gabapentin 600 MG Tablet PO ×2 (09:37→14:39)
[2020-06-18] MEDS: Acetaminophen 325 MG Tablet 650 MG PO (09:55)
[2020-06-18] MEDS: oxyCODONE 5 MG Tablet 10 MG PO (09:55)
--- NOTE | 2020-06-18 11:30 | CASEMGMT ---
KIRIT QUAN updated by NOE French that patient is requesting [facility] at discharge. Referral sent to [facility] and they are able to accept the patient. RN AVELINA updated the patient of acceptance. Will fax discharge instructions to [facility] when available.
[2020-06-18 11:50] LABS: Hematocrit 30.6 % (37-47); Hemoglobin 9.5 g/dL (12.0-15.0); Mean Corpuscular Hgb 29.5 pg (27.0-32.0); POSITIVE MORPHOLOGY YES; Platelet Count 198 K/mm3 (150-450); RBC Distribution Width CV 23.5 % (11.6-14.6); RBC Distribution Width SD 82.7 fl (35.1-43.9); Red Blood Count 3.22 M/mm3 (4.2-5.4); White Blood Count 5.9 K/mm3 (4.4-11.0)
[2020-06-18 11:51] LABS: Scan Indicated on CBC? Y/N YES- FLAGS NOTED
[2020-06-18] MEDS: Ferrous Sulfate 325 MG Tablet PO (12:13)
[2020-06-18 12:33] LABS: Anion Gap 8 (5-15); BUN 15 mg/dL (7-18); BUN/Creat Ratio 13.9 RATIO (10-20); Calcium,Total 8.8 mg/dL (8.5-10.1); Chloride 104 mmol/L (98-107); Creatinine, Serum 1.08 mg/dL (0.55-1.02); EST Glomerular Filtration Rate 52 mL/min (>60); Est Glom Filt Rate - Afr Amer 63 mL/min (>60); Estimated Creatinine Clearance 35.28 ml/min; Glucose 165 mg/dL (74-106); Potassium 3.7 mmol/L (3.5-5.1); Sodium Level 137 mmol/L (136-145)
--- NOTE | 2020-06-18 13:15 | DCINST_ITS ---
- Discharge Diagnoses Current Active Problems: Current Active and Chronic Problems (Last Reviewed 06/11/20 @ 06:[address] Nam Robertson MD) Inability to walk (Acute) Hematoma of right thigh (Acute) Warfarin-induced coagulopathy (Acute) Acute blood loss anemia (Acute) NIKHIL (acute kidney injury) (Acute) Primary osteoarthritis of left knee (Chronic) Compression fracture of T12 vertebra (Chronic) LBBB (left bundle branch block) (Chronic) Aortocoronary bypass status (Chronic ~10/09/02) CABG x6- Sequential SVG in Sequence to the LAD, Descending Diagonal, CX/CX, and RCA/RCA 10/09/02 Atherosclerotic heart disease of [place] coronary artery without angina pectoris (Chronic) Atherosclerosis of coronary artery bypass graft(s), unspecified, with other forms of angina pectoris (Chronic) CABG x6- Sequential SVG in Sequence to the LAD, Descending Diagonal, CX/CX, and RCA/RCA 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) Benign hypertension (Chronic) Obesity (Chronic) Diabetes mellitus, type 2 (Chronic) Systolic CHF, chronic (Chronic) Thromboembolic disorder (Chronic) Ischemic cardiomyopathy (Chronic) You will use the following diet at home:: No restrictions Your food should be the consistency of: Regular Discharge Activity: Return to Normal Activity Allergies/Adverse Reactions: Allergies doxycycline Allergy (Mild, Verified 06/10/20 20:15) Swelling Sulfa (Sulfonamide Antibiotics) Allergy (Verified 06/10/20 20:15) Rash tetracycline [Tetracycline] Allergy (Verified 06/10/20 20:15) Swelling dicyclomine Adverse Reaction (Verified 06/10/20 20:15) Other NSAIDS (Non-Steroidal Anti-Inflamma Adverse Reaction (Verified 06/10/20 20:15) Other Penicillins Adverse Reaction (Verified 06/10/20 20:15) Unknown Medications to take at Discharge Aspirin E.C. [Ecotrin] 81 mg PO DAILY@0800 03/08/17 Calcium Carbonate/Vitamin D3 [Calcium 500-Vit D3 600 Caplet] 1 ea PO BID 03/08/17 Gabapentin [Neurontin] 600 mg PO 4X/DAY 03/08/17 Omeprazole [Prilosec] 20 mg PO BID 03/08/17 Cyanocobalamin [Vitamin B12] 500 mcg PO DAILY@0800 04/24/18 Methocarbamol 500 mg PO BID 02/27/19 DiphenhydrAMINE [Benadryl] 25 mg PO QHS 05/28/19 Alendronate Sodium 70 mg PO QWEEK 09/17/19 isosorbide mononitrate 120 mg tablet,extended release 24 hr 120 mg PO DAILY #90 tab 10/10/19 Folic Acid 0.8 mg PO DAILY@0800 11/08/19 metoprolol succinate 100 mg tablet,extended release 24 hr 100 mg PO DAILY #90 tab 12/01/19 nitroglycerin 0.4 mg sublingual tablet 0.4 mg SUBLINGUAL Q5-15M PRN #25 tab 12/12/19 warfarin 1 mg tablet 1 mg PO DAILY #90 tab 02/21/20 buprenorphine 7.5 mcg/hour weekly transdermal patch 1 patch TRANSDERMAL Q7D 03/15/20 potassium chloride 10 mEq capsule,extended release 10 meq PO BID 03/15/20 Ferrous Sulfate 325 mg PO BIDCM 06/11/20 Furosemide [Lasix] 60 mg PO DAILY 06/11/20 Ranolazine [Ranolazine ER] 500 mg PO BID 06/11/20 Rosuvastatin Calcium 40 mg PO DAILY 06/11/20 Sacubitril/Valsartan 49-51 mg [Entresto 49 mg-51 mg Tablet] 1 tab PO BID 06/11/20 Ubidecarenone [Co Q-10] 10 mg PO DAILY 06/11/20 Primary Care Physician: Osiel Arzola MD [Primary Care Provider] - Please follow up with your Primary Care Physician in: IN 1 WEEK Test Results: Test results from this visit will be discussed in further detail at your follow- up appointment, if applicable. Please Follow Up With: Lissette Nam MD When: CALL FOR appt Proposed Discharge Date: 06/18/20
--- NOTE | 2020-06-18 13:17 | DS.PCM_ITS ---
Discharge Date and Diagnosis - Problem List Patient Problems: Active and Suspected Problems (Last Reviewed 06/11/20 @ 06:[address] Nam Robertson MD) Inability to walk (Acute) Hematoma of right thigh (Acute) Warfarin-induced coagulopathy (Acute) Acute blood loss anemia (Acute) NIKHIL (acute kidney injury) (Acute) Date of Admission: 06/11/20 Date of Discharge: 06/18/20 - Primary Discharge Diagnosis Acute Problems: Active Problems (Last Reviewed 06/11/20 @ 06:[address] Nam Robertson MD) Inability to walk (Acute) Hematoma of right thigh (Acute) Warfarin-induced coagulopathy (Acute) Acute blood loss anemia (Acute) NIKHIL (acute kidney injury) (Acute) - Secondary Discharge Diagnosis Chronic Problems: Chronic Problems (Last Reviewed 06/11/20 @ 06:[address] 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 Fluid collection of the lateral thigh. Electronically Signed: Rogelio Chung MD at 22:43 EDT , Service support , Femur X-Ray 06/10/20 22:07 IMPRESSION: No fracture. Electronically Signed: Rogelio Chung MD at 22:44 EDT , Service support , Knee X-Ray 06/10/20 22:07 IMPRESSION: Degenerative and postoperative changes. Electronically Signed: Rogelio Chung MD at 22:36 EDT , Service support , Pelvis CT 06/11/20 02:20 IMPRESSION: Large hematoma with a fluid fluid level involving the vastus lateralis muscle as described with increased markings in the surrounding subcutaneous fat. Electronically Signed: Omid Rolf, at 9:16 EDT , Service support , Operations: None Summary of Care Provided: Patient is a 79-year-old lady admitted with acute right hip pain pelvic CT d emonstrated large hematoma with fluid level along the vastus lateralis as well as swelling of the right quadriceps muscles 1. Acute right hip hematoma ?Patient apparently does not have any history of trauma. She was however on systemic anticoagulation with Coumadin which is being bridged with Lovenox. CT of the pelvis obtained on admission demonstrated Large hematoma with a fluid fluid level involving the vastus lateralis muscle as described with increased markings in the surrounding subcutaneous fat was seen in consultation by orthopedic surgery recommended right knee immobilizer -06/18/2020 symptoms fairly controlled. P was discharged home with home health. Her Lovenox and Coumadin discontinued 2. Acute blood loss anemia -secondary to above patient has been transfused with 3 unit PRBC following admission. Patient was also found to have guaiac positive stools placed on PPI with consultation placed to general surgery. Plan is for patient to undergo endoscopic evaluation as outpatient when stable 3. Chronic congestive heart failure with reduced ejection fraction of 25% Patient is on Entresto 4. Coronary artery disease -with EF of 25% and subsequent ischemic cardiomyopathy status post CABG ?Patient is on aspirin statin therapy metoprolol as well as isosorbide 5. Hypertension - Blood pressure controlled, home medications continued with dose adjustment as needed 6. Dyslipidemia -Patient is on statin therapy, continued at home dose 7. Kidney injury Resolved 8. Physical deconditioning - Requested for PT OT eval and social media sr strategy manager to assist with discharge planning 9. DVT prophylaxis ?SCDs Patient Problems: Active and Suspected Problems (Last Reviewed 06/11/20 @ 06:[address] Nam Robertson MD) Inability to walk (Acute) Hematoma of right thigh (Acute) Warfarin-induced coagulopathy (Acute) Acute blood loss anemia (Acute) NIKHIL (acute kidney injury) (Acute) Objective: GENERAL: cooperative HEENT: Atraumatic; EYES; Anicteric, Normal Conjunctiva NECK; supple, normal thyroid, RESPIRATORY: Diminished to auscultation CARDIOVASCULAR: Regular S1 S2, GI: soft, normoactive bowel sounds, : No Renal angle tenderness; EXTREMITIES: No edema, no clubbing, MUSCULOSKELETAL: Right hip bruising and hematoma NEURO: Awake; no lateralizing signs. SKIN: As described above PSYCH; Flat affect - Physical Exam Vitals/I&O's: Vital Signs Temp Pulse Resp BP Pulse Ox 97.4 F L 84 14 108/58 L 97 06/18/20 09:34 06/18/20 09:34 06/18/20 09:34 06/18/20 09:34 06/18/20 09:34 Oxygen Delivery Method Room Air Weight: 94.7 kg Body Mass Index (BMI) 35.8 Intake and Output for Last 24 Hours 06/16/20 06/17/20 06/18/20 23:59 23:59 23:59 Intake Total 1700 / 1700 200 / 200 Output Total Balance 1700 / 1700 200 / 200 Microbiology Past 72 Hours 06/16/20 11:00 Stool Stool Occult Blood (DEMETRIUS) - Final Occult Blood Positive Laboratory Results 06/18/20 11:35: WBC 5.9, RBC 3.22 L, Hgb 9.5 L, Hct 30.6 L, MCV 95.0, MCH 29.5, MCHC 31.0 L, RDW Std Deviation 82.7 H, RDW Coeff of Maty 23.5 H, Plt Count 198, Differential Comment COMMENT 06/18/20 11:35: Sodium 137, Potassium 3.7, Chloride 104, Carbon Dioxide 25.0, Anion Gap 8, BUN 15, Creatinine 1.08 H, Estim Creat Clear Calc 35.28, Est GFR (MDRD) Af Amer 63, Est GFR (MDRD) Non-Af 52 L, BUN/Creatinine Ratio 13.9, Glucose 165 H, Calcium 8.8, Magnesium 2.0 Current Medications Acetaminophen (Acetaminophen 325 Mg Tablet) 650 mg PO Q6H PRN PRN PRN Reason: Pain Score 1-10/Temp > 100.7 F Last Admin: 06/18/20 09:55 Dose: 650 mg Documented by: Aspirin (Aspirin E.C. 81 Mg Tablet) 81 mg PO DAILY@0800 [facility] Last Admin: 06/18/20 09:37 Dose: 81 mg Documented by: Atorvastatin Calcium (Atorvastatin Calcium 80 Mg Tablet) 80 mg PO QHS [facility] Last Admin: 06/17/20 21:36 Dose: 80 mg Documented by: Calamine/Phenol (Menthol/Lanolin/Calamine/Znox 113 Gm Tube) 1 applic TOPICAL TID [facility]; Protocol Last Admin: 06/18/20 06:14 Dose: 1 applicatio Documented by: Calcium/Vitamin D (Calcium Carb/Vitamin D 1 Tablet Tablet) 1 tablet PO BIDCM [facility] Last Admin: 06/18/20 09:36 Dose: 1 tablet Documented by: Cyanocobalamin (Cyanocobalamin 500 Mcg Tablet) 500 mcg PO DAILY@0800 [facility] Last Admin: 06/18/20 09:36 Dose: 500 mcg Documented by: Diphenhydramine HCl (Diphenhydramine 25 Mg Capsule) 25 mg PO QHS [facility] Last Admin: 06/17/20 21:36 Dose: 25 mg Documented by: Ferrous Sulfate (Ferrous Sulfate 325 Mg Tablet) 325 mg PO BID@1200,1700 [facility] Last Admin: 06/18/20 12:13 Dose: 325 mg Documented by: Folic Acid (Folic Acid 1 Mg Tablet) 1 mg PO DAILY@0800 [facility] Last Admin: 06/18/20 09:37 Dose: 1 mg Documented by: Furosemide (Furosemide 20 Mg Tablet) 60 mg PO DAILY [facility] Last Admin: 06/18/20 09:36 Dose: 60 mg Documented by: Gabapentin (Gabapentin 600 Mg Tablet) 600 mg PO 4X/DAY [facility] Last Admin: 06/18/20 09:37 Dose: 600 mg Documented by: Isosorbide Mononitrate (Isosorbide Mononitrate 120 Mg Tablet) 120 mg PO DAILY [facility] Last Admin: 06/18/20 09:36 Dose: 120 mg Documented by: Melatonin (Melatonin 3 Mg Tablet) 3 mg PO QHS PRN PRN PRN Reason: INSOMNIA Last Admin: 06/11/20 21:38 Dose: 3 mg Documented by: Methocarbamol (Methocarbamol 500 Mg Tablet) 500 mg PO BID [facility] Last Admin: 06/18/20 09:36 Dose: 500 mg Documented by: Metoprolol Succinate (Metoprolol(Xl)Succ 100 Mg Tablet) 100 mg PO DAILY [facility] Last Admin: 06/18/20 09:33 Dose: Not Given Documented by: Ondansetron HCl (Ondansetron 4 Mg/2 Ml Vial) 4 mg IV Q6H PRN PRN PRN Reason: NAUSEA/VOMITING Oxycodone HCl (Oxycodone 5 Mg Tablet) 10 mg PO Q4H PRN PRN PRN Reason: Pain Score 6-10 Last Admin: 06/18/20 09:55 Dose: 10 mg Documented by: Pantoprazole Sodium (Pantoprazole Sodium 40 Mg Tablet) 40 mg PO BID [facility] Last Admin: 06/18/20 09:36 Dose: 40 mg Documented by: Potassium Chloride (Potassium Chloride 10 Meq Tablet) [facility] Last Admin: 06/18/20 09:37 Dose: 10 meq Documented by: Ranolazine (Ranolazine 500 Mg Tablet) 500 mg PO BID [facility] Last Admin: 06/18/20 09:37 Dose: 500 mg Documented by: Sacubitril/Valsartan (Sacubitril/Valsartan 49-51 Mg Tablet) 1 each PO BID [facility] Last Admin: 06/18/20 09:34 Dose: Not Given Documented by: Sodium Chloride (0.9% Saline Lock 10 Ml Syringe) 10 - 40 ml IV UD PRN PRN Reason: SALINE FLUSH Last Admin: 06/16/20 15:53 Dose: 10 ml Documented by: Discharge Diet: No Restrictions Discharge Activity: Return to Normal Activity Home Medications: Medications to take at Discharge Aspirin E.C. [Ecotrin] 81 mg PO DAILY@79903/08/17 Calcium Carbonate/Vitamin D3 [Calcium 500-Vit D3 600 Caplet] 1 ea PO BID 03/08/17 Gabapentin [Neurontin] 600 mg PO 4X/DAY 03/08/17 Omeprazole [Prilosec] 20 mg PO BID 03/08/17 Cyanocobalamin [Vitamin B12] 500 mcg PO DAILY@0812/07/17 Methocarbamol 500 mg PO BID 02/27/19 DiphenhydrAMINE [Benadryl] 25 mg PO QHS 05/28/19 Alendronate Sodium 70 mg PO QWEEK 09/17/19 isosorbide mononitrate 120 mg tablet,extended release 24 hr 120 mg PO DAILY #90 tab 10/10/19 Folic Acid 0.8 mg PO DAILY@0800 11/08/19 metoprolol succinate 100 mg tablet,extended release 24 hr 100 mg PO DAILY #90 tab 12/01/19 nitroglycerin 0.4 mg sublingual tablet 0.4 mg SUBLINGUAL Q5-15M PRN #25 tab 12/12/19 warfarin 1 mg tablet 1 mg PO DAILY #90 tab 02/21/20 buprenorphine 7.5 mcg/hour weekly transdermal patch 1 patch TRANSDERMAL Q7D 03/15/20 potassium chloride 10 mEq capsule,extended release 10 meq PO BID 03/15/20 Ferrous Sulfate 325 mg PO BIDCM 06/11/20 Furosemide [Lasix] 60 mg PO DAILY 06/11/20 Ranolazine [Ranolazine ER] 500 mg PO BID 06/11/20 Rosuvastatin Calcium 40 mg PO DAILY 06/11/20 Sacubitril/Valsartan 49-51 mg [Entresto 49 mg-51 mg Tablet] 1 tab PO BID 06/11/20 Ubidecarenone [Co Q-10] 10 mg PO DAILY 06/11/20 Primary Care Physician: Osiel Arzola MD [Primary Care Provider] - Please follow up with your Primary Care Physician in: IN 1 WEEK Please Follow Up With: Lissette Nam MD When: CALL FOR appt Disposition: Home with Home Health Minutes spent on discharge:: 45 Patient Condition:: Stable Medical Necessity - Tobacco Use Smoking Status: Never smoker Meaningful Use Info Meaningful Use Diagnoses (Choose all that apply): None applicable Inpatient E&M: 31727 Disch Hosp
--- NOTE | 2020-06-19 14:11 | CASEMGMT ---
KIRIT QUAN Discharge Follow-up Phone Call: YOAN: 14 Strata: 4 Call Date: 06/19/20 Discharge Date: 06/18/20 Time of Call: 1410 Duration: 3 min Admitting Diagnosis: Hematoma of right thigh KIRIT QUAN completed follow-up phone call after recent hospitalization. Patient states she is doing ok. Patient had no questions or concerns regarding discharge instructions. Patient has follow-up appts scheduled. Patient states she has not heard from [facility] at this time. KIRIT QUAN called [facility] and left message to call patient and updated when they would be seeing her.
== END 2020-06-18 16:50 | disposition home health service (06) | DRG 605 ==
LOC: ED 23:49 → MS3 06-11 01:45
PROVIDERS: Internal Medicine; Admitting Provider Hospitalist; Emergency Provider Emergency Medicine; PCP Family Medicine; Visit Provider Internal Medicine
DX: S70.11XA Contusion of right thigh, initial encounter (principal); I50.22 Chronic systolic (congestive) heart failure; I13.0 Hypertensive heart and chronic kidney disease with heart failure and stage 1 through stage 4 chronic kidney disease, or unspecified chronic kidney disease; N17.9 Acute kidney failure, unspecified; D62 Acute posthemorrhagic anemia; M48.54XA Collapsed vertebra, not elsewhere classified, thoracic region, initial encounter for fracture; N18.30 Chronic kidney disease, stage 3 unspecified; E11.22 Type 2 diabetes mellitus with diabetic chronic kidney disease; I25.5 Ischemic cardiomyopathy; I44.7 Left bundle-branch block, unspecified; M17.12 Unilateral primary osteoarthritis, left knee; I25.10 Atherosclerotic heart disease of native coronary artery without angina pectoris; E11.21 Type 2 diabetes mellitus with diabetic nephropathy; E11.65 Type 2 diabetes mellitus with hyperglycemia; R19.5 Other fecal abnormalities; I25.708 Atherosclerosis of coronary artery bypass graft(s), unspecified, with other forms of angina pectoris; E66.01 Morbid (severe) obesity due to excess calories; E78.5 Hyperlipidemia, unspecified; R79.1 Abnormal coagulation profile; T45.515A Adverse effect of anticoagulants, initial encounter; Z79.82 Long term (current) use of aspirin; Z68.35 Body mass index [BMI] 35.0-35.9, adult; Z66 Do not resuscitate; Z82.49 Family history of ischemic heart disease and other diseases of the circulatory system; Z86.711 Personal history of pulmonary embolism; Z86.718 Personal history of other venous thrombosis and embolism; Z90.49 Acquired absence of other specified parts of digestive tract; Z90.710 Acquired absence of both cervix and uterus; Z96.659 Presence of unspecified artificial knee joint; Z98.51 Tubal ligation status
CPT/HCPCS: 36415; 36416; 72192; 73552; 73560; 80048; 80053; 82274; 83540; 83550; 83735; 85014; 85018; 85025; 85027; 85610; 85652; 86140; 86850; 86900; 86901; 86920; 87635; 93971; 97110; 97116; 97162; 97166; 97530; 97535; 99284; J7030; P9016; A4216; J1940; J2405; U0002

== ENCOUNTER → 2020-07-01 09:33 | Outpatient (CLI) | payer MEDICARE, SELFPAY ==
[2020-07-01 11:12] LABS: Hematocrit 35.6 % (37-47); Hemoglobin 10.8 g/dL (12.0-15.0); Mean Corp Hgb Conc 30.3 g/dL (32-36); Mean Corpuscular Hgb 29.8 pg (27.0-32.0); Mean Corpuscular Volume 98.3 fL (81-99); POSITIVE COUNT YES; POSITIVE MORPHOLOGY YES; Platelet Count 150 K/mm3 (150-450); RBC Distribution Width CV 22.6 % (11.6-14.6); RBC Distribution Width SD 85.2 fl (35.1-43.9); Red Blood Count 3.62 M/mm3 (4.2-5.4); White Blood Count 4.4 K/mm3 (4.4-11.0)
[2020-07-01 11:15] LABS: Differential Indicated MANUAL DIFF
[2020-07-01 11:20] LABS: International Normalized Ratio 1.1; Prothrombin Time (Protime)PT. 13.5 SECONDS (11.7-14.9)
[2020-07-01 11:36] LABS: Anion Gap 6 (5-15); BUN 15 mg/dL (7-18); BUN/Creat Ratio 16.3 RATIO (10-20); Calcium,Total 8.8 mg/dL (8.5-10.1); Chloride 104 mmol/L (98-107); Creatinine, Serum 0.92 mg/dL (0.55-1.02); EST Glomerular Filtration Rate 62 mL/min (>60); Est Glom Filt Rate - Afr Amer 75 mL/min (>60); Glucose 111 mg/dL (74-106); Potassium 4.2 mmol/L (3.5-5.1); Sodium Level 137 mmol/L (136-145)
[2020-07-01 11:42] LABS: Anisocytosis 1+; Eosinophil 2 % (0-5); Lymphocyte 42 % (19-41); Monocyte 12 % (0-10); Myelocyte 3 (0-0); Neutrophil-Segmented 41 % (47-70); Platelet Estimate ADEQUATE (ADEQ); Red Cell Morphology N CHROM NORMAL (NORM C&C); Total Cells Counted 100 (MANUAL DIFF)
[2020-07-01 11:43] LABS: Absolute Lymphocyte Count 1.85 X10^3/uL (0.83-4.51); Absolute Neutrophil Count 1.8 X10^3/uL (2.0-7.7); Lymphocyte # 1.85 X10^3/ul (4.0)
[2020-07-02 13:04] LABS: Pathologist Review Reviewed
== END ==
PROVIDERS: PCP Family Medicine; Referring Provider Family Medicine; Visit Provider Family Medicine
DX: N28.9 Disorder of kidney and ureter, unspecified (principal); D64.9 Anemia, unspecified; I74.9 Embolism and thrombosis of unspecified artery; I25.10 Atherosclerotic heart disease of native coronary artery without angina pectoris; Z79.01 Long term (current) use of anticoagulants
CPT/HCPCS: 36415; 80048; 85025; 85610

== ENCOUNTER 2020-07-10 08:45 | Day surgery (SDC) | payer MEDICARE, SELFPAY ==
[2020-07-03 14:09] VITALS: BMI 33.9
--- NOTE | 2020-07-10 09:00 | HP_ITS ---
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 [Ecotrin] 81 mg PO DAILY@0800 03/08/17 [History Confirmed 07/03/20] Calcium Carbonate/Vitamin D3 [Calcium 500-Vit D3 600 Caplet] 1 ea PO BID 03/08/17 [History Confirmed 07/03/20] Gabapentin [Neurontin] 600 mg PO 4X/DAY 03/08/17 [History Confirmed 07/03/20] Omeprazole [Prilosec] 20 mg PO BID 03/08/17 [History Confirmed 07/03/20] Cyanocobalamin [Vitamin B12] 500 mcg PO DAILY@0800 12/07/17 [History Confirmed 07/03/20] Methocarbamol 500 mg PO BID 02/27/19 [History Confirmed 07/03/20] DiphenhydrAMINE [Benadryl] 25 mg PO QHS 05/28/19 [History Confirmed 07/03/20] Alendronate Sodium 70 mg PO QWEEK 09/17/19 [History Confirmed 07/03/20] isosorbide mononitrate 120 mg tablet,extended release 24 hr 120 mg PO DAILY #90 tab 10/10/19 [Rx Confirmed 07/03/20] Folic Acid 0.8 mg PO DAILY@0800 11/08/19 [History Confirmed 07/03/20] metoprolol succinate 100 mg tablet,extended release 24 hr 100 mg PO DAILY #90 tab 12/01/19 [Rx Confirmed 07/03/20] nitroglycerin 0.4 mg sublingual tablet 0.4 mg SUBLINGUAL Q5-15M PRN #25 tab 12/12/19 [Rx Confirmed 07/03/20] warfarin 1 mg tablet 1 mg PO DAILY #90 tab 02/21/20 [Rx Confirmed 07/03/20] buprenorphine 7.5 mcg/hour weekly transdermal patch 1 patch TRANSDERMAL Q7D 03/15/20 [History Confirmed 07/03/20] potassium chloride 10 mEq capsule,extended release 10 meq PO BID 03/15/20 [History Confirmed 07/03/20] Ferrous Sulfate 325 mg PO BIDCM 06/11/20 [History Confirmed 07/03/20] Furosemide [Lasix] 60 mg PO DAILY 06/11/20 [History Confirmed 07/03/20] Ranolazine [Ranolazine ER] 500 mg PO BID 06/11/20 [History Confirmed 07/03/20] Rosuvastatin Calcium 40 mg PO DAILY 06/11/20 [History Confirmed 07/03/20] Sacubitril/Valsartan 49-51 mg [Entresto 49 mg-51 mg Tablet] 1 tab PO BID 06/11/20 [History Confirmed 07/03/20] Ubidecarenone [Co Q-10] 10 mg PO DAILY 06/11/20 [History Confirmed 07/03/20] [facility] Medical History LBBB (left bundle branch block) (Chronic) 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), unspecified, with other forms of angina pectoris (Chronic) Benign hypertension (Chronic) Obesity (Chronic) Diabetes mellitus, type 2 (Chronic) Systolic CHF, chronic (Chronic) Thromboembolic disorder (Chronic) Ischemic cardiomyopathy (Chronic) Abnormal stress test (Chronic) GERD (gastroesophageal reflux disease) (Chronic) History of DVT (deep vein thrombosis) (Chronic) History of esophageal stricture (Chronic) History of pulmonary embolism (Chronic) Hyperlipidemia (Inactive) Surgical History Aortocoronary bypass status (Chronic ~10/09/02) H/O arthroscopic knee surgery (Resolved) History of partial knee replacement (Resolved) History of total hysterectomy (Resolved) History of tubal ligation (Resolved) Hx of bilateral breast reduction surgery (Resolved) Hx of cholecystectomy (Resolved) Family History Mother Myocardial infarction Hypertension Heart disease History of coronary artery bypass graft Brother Hypertension History of coronary artery bypass graft Father Cancer esophageal Social History (Updated 07/04/20 @ 09:[address] Lissette Nam MD) alcohol intake: never substance use type: does not use caffeine: Yes Type: carbonated beverages, coffee Number of servings: 3 what type of physical activity do you participate in: other details: cardiac rehab frequency: 3-4 times per week duration: 45-60 minutes/day seatbelt use: always do you feel safe at home: Yes HPI HPI Details: Patient was informed that this visit will be billed to patient. This visit was conducted during . Time: 2:05?2:10 RIP LORENZO, is a 79 F who presents to the office today for follow-up from hospital for positive fecal occult blood, anemia. Patient's likely cause of anemia at that time was a right thigh hematoma as patient states that she was not having any gross blood per rectum. Patient states that she usually has a bowel movement about every other day denies any blood. Patient's Coumadin is currently held since late May due to the thigh hematoma. Patient also has a history of dysphagia with meat or bread as patient states she did get dilated by Dr. Vargas at previous EGD 04/24/2016 where he notices a benign-appearing esophageal stenosis which was dilated to a maximum balloon size of 12 mm and patient also had a small hiatal hernia otherwise normal. Patient states recently she has noticed more issues with dysphagia again. Patient's last colonoscopy was 03/30/[address] Ward which found nonbleeding internal hemorrhoids diverticulosis tortuous colon otherwise no polyps. ROS ENT ENT: Positive for difficulty swallowing Gastro GI: Positive for difficulty swallowing; no abdominal pain or blood in stool (No gross blood, fecal occult positive) Exam Const General: cooperative Other: Rest of the exam unable to be completed as this is a phone visit Details: Details:: Exam was limited due to phone visit with no video. Quality Reporting Medication Reconciliation ([facility] 68) alendronate 70 mg PO QWEEK aspirin 81 mg PO DAILY@0800 buprenorphine 7.5 mcg/hour (Butrans) 1 patch transdermal Q7D calcium carbonate-vitamin D3 500mg (1,250mg) -600 unit 1 ea PO BID coenzyme Q10 10 mg PO DAILY cyanocobalamin (vitamin B-12) 500 mcg PO DAILY@0800 diphenhydramine HCl 25 mg PO QHS ferrous sulfate 325 mg PO BIDCM folic acid 0.8 mg PO DAILY@0800 furosemide 60 mg PO DAILY gabapentin 600 mg PO 4X/DAY isosorbide mononitrate ER 120 mg PO DAILY methocarbamol 500 mg PO BID metoprolol succinate ER 100 mg PO DAILY nitroglycerin 0.4 mg sublingual Q5-15M PRN omeprazole 20 mg PO BID potassium chloride ER 10 mEq PO BID ranolazine ER 500 mg PO BID rosuvastatin 40 mg PO DAILY sacubitril-valsartan 49-51 mg 1 tab PO BID warfarin 1 mg See Protocol PO DAILY Assessment & Plan Problems 1. Dysphasia R47.02 2. Fecal occult blood test positive R19.5 Plan Patient is currently off her Coumadin due to her history of right thigh hematoma since late May. Since I do not do dilatations of the esophagus which sounds like she is due for again as she has a history of a benign stricture, patient requested Dr. Falk who agreed to do the EGD and colonoscopy. I have discussed the above with the patient. I have offered the patient EGD with possible dilatation colonoscopy for evaluation. I have explained the risks/benefits of the procedure and described the procedure. I have discussed the risks with the patient, including but not limited to: infection, bleeding, perforation of the GI tract requiring emergency surgery, inability to complete the procedure, injury to any internal organs, complications of anesthesia, etc. - the patient understands and agrees to proceed. I have answered all the patient's questions to the patient's satisfaction and the patient has no further questions. The patient has been given instructions for the colon cleansing preparation. 1 day of clears, MiraLAX Dulcolax split prep. Lissette Nam M.D. Pager: [phone] [facility] [address] [place] [address], [facility], [address] [place] [address] Office: [phone] Orders Orders: Colonoscopy Today EGD Today Plan Detail Follow Up We will schedule EGD and colonoscopy Coding Level of Care Code Level 1 Telephone Diagnoses Dysphasia R47.02 Fecal occult blood test positive R19.5 I have re-examined the patient. There are no clinical changes since date of exam.
[2020-07-10 09:16] LABS: Prothrombin Time Fingerstick 15.4 SEC (11.9-14.4)
[2020-07-10 09:22] VITALS: BP 121/57; PULSE 82; RESP 18; TEMP 36.3; O2SAT 100; BMI 34.9
[2020-07-10] MEDS: Lactated Ringers 1,000 ML 100 ML IV (09:34)
--- NOTE | 2020-07-10 09:45 | IMM_PTH ---
PATIENT: RIP LORENZO LOC: EN U#:[id number] AGE/SX: 79/F ROOM: RE07/10/[address]: Dr. Torrey Falk MD : 1940 BED: DIS: 07/10/2020 SPEC #: [id number] RECD: 07/10/20 13:28 STATUS: KACEY REQ #: [id number] SONYA: 07/10/20 09:[address]: Torrey Falk DEPT: IMMUNOHISTOCHEMISTRY RECD BY: Jennifer Crawford ENTERED: 07/10/20 13:28 SP TYPE: IMMUNO OTHR DR: Dr. Osiel Arzola MD Tissues: A - Stomach, NOS Procedures: H Pylori (initial) PHYSICIAN & INSTITUTION [place] [address] SPECIMEN INFORMATION: Tissue Source: A - Antrum biopsy Clinical Info: dysphasia, fecal occult blood test positive Specimen Number: [id number] CPT code: 70723 METHODOLOGY: Deparaffinized sections of prefer/formalin-fixed tissue or PAP/DQ stained slides are incubated with monoclonal/polyclonal antibodies/oligonucleotide probes. Localization is made via biotin free immunoperoxidase method. Appropriate controls are performed and reacted as expected. Results on target cell population are indicated in the following table: RESULTS: ANTIBODY / CLONE RESULT Block A H Pylori (polyclonal) negative These tests were developed and their performance characteristics determined by [facility]. They may not have been cleared or approved by the U.S. Food and Drug Administration. The FDA has determined that such clearance or approval is not necessary. INTERPRETATION: A. Antrum, biopsy: Negative for Helicobacter pylori organisms. SJ:alem 07/12/20
--- NOTE | 2020-07-10 09:45 | COLBX_PTH ---
PATIENT: RIP LORENZO LOC: EN U#:[id number] AGE/SX: 79/F ROOM: RE07/10/[address]: Dr. Torrey Falk MD : 1940 BED: DIS: 07/10/2020 SPEC #: [id number] RECD: 07/10/20 12:12 STATUS: KACEY JUSTIN #: [id number] SONYA: 07/10/20 09:[address]: Torrey Falk DEPT: SURGICAL PATHOLOGY RECD BY: Mehnaz Linder ENTERED: 07/10/20 13:33 SP TYPE: COLON BX OTHR DR: Dr. Osiel Arzola MD Tissues: A - Gastric mucous membrane B - Sigmoid colon biopsy Procedures: Surgery Specimen Level IV HEADER OPERATION: Colonoscopy, EGD ([facility]) PRE-OP DIAGNOSIS: Dysphasia, fecal occult blood test positive TISSUE SUBMITTED: A - Antrum biopsy for histo and H. pylori, B - Sigmoid polyp MICROSCOPIC DIAGNOSIS A. Antrum, biopsy: Fragments of gastric epithelium, no pathologic diagnosis. See comment. B. Sigmoid polyp, biopsy: Tubular adenoma. KENNETH:alem 07/12/20 COMMENT A. The results of immunohistochemistry for Helicobacter pylori will be reported separately ([id number]). MICROSCOPIC DESCRIPTION Slides are reviewed. GROSS DESCRIPTION A - Received in fixative is one container labeled with the patient's name and designated antrum biopsy. The specimen consists of two irregular fragments of light harris soft tissue that in aggregate measure 0.4 x 0.2 x 0.1 cm. The specimen is totally submitted in one cassette. B - Received in fixative is one container labeled with the patient's name and designated sigmoid polyp. The specimen consists of a piece of harris-pink polyp measuring 0.5 x 0.4 x 0.3 cm. The specimen is totally submitted in one cassette. / KENNETH:alem 07/10/20 TC:1 CPT: 92475 x2
[2020-07-10 10:24] VITALS: BP 120/52; BP 121/57; PULSE 87; RESP 16; TEMP 36.4; O2SAT 99
--- NOTE | 2020-07-10 10:25 | OP.EGD_ITS ---
Patient Name: Brittany Richards Procedure Date: 07/10/2020 9:40 AM Date of : 1940 Age: 79 Procedure: Upper GI endoscopy Indications: Dysphagia Providers: Torrey Falk MD Referring MD: Torrey Falk MD Medicines: See the Anesthesia note for documentation of the administered medications Patient Profile: This is an 79 year old female. Refer to note in patient chart for documentation of history and physical. Complications: No immediate complications. Procedure: Pre-Anesthesia Assessment: - Prior to the procedure, a History and Physical was performed, and patient medications and allergies were reviewed. The patient's tolerance of previous anesthesia was also reviewed. The risks and benefits of the procedure and the sedation options and risks were discussed with the patient. All questions were answered, and informed consent was obtained. Prior Anticoagulants: The patient has taken aspirin, last dose was 7 days prior to procedure. ASA Grade Assessment: III - A patient with severe systemic disease. After reviewing the risks and benefits, the patient was deemed in satisfactory condition to undergo the procedure. After obtaining informed consent, the endoscope was passed under direct vision. Throughout the procedure, the patient's blood pressure, pulse, and oxygen saturations were monitored continuously. The gastroscope was introduced through the mouth, and advanced to the second part of duodenum. The upper GI endoscopy was accomplished without difficulty. The patient tolerated the procedure well. Scope In: 9:56:55 AM Scope Out: 9:59:30 AM Total Procedure Duration Time 0 hours 2 minutes 35 seconds Findings: A 4 cm hiatal hernia was present. No biopsies or other specimens were collected for this exam. Localized mildly erythematous mucosa without bleeding was found in the prepyloric region of the stomach. Biopsies were taken with a cold forceps for Helicobacter pylori testing. The examined duodenum was normal. No biopsies or other specimens were collected for this exam. Impression: - 4 cm hiatal hernia. No specimens collected. - Erythematous mucosa in the prepyloric region of the stomach. Biopsied. - Normal examined duodenum. No specimens collected. Recommendation: - Discharge patient to home. - Resume previous diet. - Continue present medications. - Await pathology results. - Repeat upper endoscopy (date not yet determined) for surveillance. - Return to my office in 1 week. Procedure Code(s): --- Professional --- 97047, Esophagogastroduodenoscopy, flexible, transoral; with biopsy, single or multiple Diagnosis Code(s): --- Professional --- K44.9, Diaphragmatic hernia without obstruction or gangrene K31.89, Other diseases of stomach and duodenum R13.10, Dysphagia, unspecified CPT copyright 2017 [employer]. All rights reserved. The codes documented in this report are preliminary and upon farm operator review may be revised to meet current compliance requirements. MD Torrey Abdalla MD 07/10/2020 10:25:18 AM This report has been signed electronically. Number of Addenda: 0 Note Initiated On: 07/10/2020 9:40 AM
--- NOTE | 2020-07-10 10:26 | OP.CCLET_ITS ---
07/10/2020 Osiel Arzola Re : Upper GI endoscopy procedure for Brittany Alvarado Dariusz This procedure was performed on Friday, July 10, 2020. My impressions and recommendations are as follows: Impressions : - 4 cm hiatal hernia. No specimens collected. - Erythematous mucosa in the prepyloric region of the stomach. Biopsied. - Normal examined duodenum. No specimens collected. Recommendations : - Discharge patient to home. - Resume previous diet. - Continue present medications. - Await pathology results. - Repeat upper endoscopy (date not yet determined) for surveillance. - Return to my office in 1 week. My findings are described in the full procedure note, which is enclosed. If I can be of further assistance, please feel free to contact me at Doctor phone number(s): , Fax: [phone], Work: . Sincerely, MD Torrey Abdalla MD 07/10/2020 10:25:18 AM This report has been signed electronically.
--- NOTE | 2020-07-10 10:29 | OP.CCLET_ITS ---
07/10/2020 Osiel Arzola Re : Colonoscopy procedure for Brittany Alvarado Dariusz This procedure was performed on Friday, July 10, 2020. My impressions and recommendations are as follows: Impressions : - One 5 mm polyp in the sigmoid colon, removed with a hot snare. Resected and retrieved. - Diverticulosis in the sigmoid colon and in the descending colon. No specimens collected. - The examination was otherwise normal. Recommendations : - Discharge patient to home. - Resume previous diet. - Continue present medications. - Await pathology results. - Repeat colonoscopy in 5 years for surveillance. - Telephone my office for pathology results in 1 week. My findings are described in the full procedure note, which is enclosed. If I can be of further assistance, please feel free to contact me at Doctor phone number(s): , Fax: [phone], Work: . Sincerely, MD Torrey Abdalla MD 07/10/2020 10:28:53 AM This report has been signed electronically.
--- NOTE | 2020-07-10 10:29 | OP.COLON_ITS ---
Patient Name: Brittany Richards Procedure Date: 07/10/2020 10:00 AM Date of : 1940 Age: 79 Procedure: Colonoscopy Indications: Heme positive stool Providers: Torrey Falk MD Referring MD: Torrey Falk MD Medicines: See the Anesthesia note for documentation of the administered medications Patient Profile: This is an 79 year old female. Refer to note in patient chart for documentation of history and physical. Last Colonoscopy: 2010. Complications: No immediate complications. Procedure: Pre-Anesthesia Assessment: - Prior to the procedure, a History and Physical was performed, and patient medications and allergies were reviewed. The patient's tolerance of previous anesthesia was also reviewed. The risks and benefits of the procedure and the sedation options and risks were discussed with the patient. All questions were answered, and informed consent was obtained. Prior Anticoagulants: The patient has taken aspirin, last dose was 7 days prior to procedure. ASA Grade Assessment: III - A patient with severe systemic disease. After reviewing the risks and benefits, the patient was deemed in satisfactory condition to undergo the procedure. After I obtained informed consent, the scope was passed under direct vision. Throughout the procedure, the patient's blood pressure, pulse, and oxygen saturations were monitored continuously. The adult colonoscope was introduced through the anus and advanced to the cecum, identified by appendiceal orifice and ileocecal valve. The colonoscopy was performed without difficulty. The patient tolerated the procedure well. The quality of the bowel preparation was good. Scope In: 10:01:28 AM Scope Withdrawal Time 0 hours 7 minutes 39 seconds Scope Out: 10:16:15 AM Total Procedure Duration Time 0 hours 14 minutes 47 seconds Findings: A 5 mm polyp was found in the sigmoid colon. The polyp was sessile. The polyp was removed with a hot snare. Resection and retrieval were complete. Multiple small and large-mouthed diverticula were found in the sigmoid colon and descending colon. No biopsies or other specimens were collected for this exam. The exam was otherwise without abnormality. Non-bleeding internal hemorrhoids were found during retroflexion. The hemorrhoids were Grade I (internal hemorrhoids that do not prolapse). Impression: - One 5 mm polyp in the sigmoid colon, removed with a hot snare. Resected and retrieved. - Diverticulosis in the sigmoid colon and in the descending colon. No specimens collected. - The examination was otherwise normal. Recommendation: - Discharge patient to home. - Resume previous diet. - Continue present medications. - Await pathology results. - Repeat colonoscopy in 5 years for surveillance. - Telephone my office for pathology results in 1 week. Procedure Code(s): --- Professional --- 88109, Colonoscopy, flexible; with removal of tumor(s), polyp(s), or other lesion(s) by snare technique Diagnosis Code(s): --- Professional --- D12.5, Benign neoplasm of sigmoid colon R19.5, Other fecal abnormalities K57.30, Diverticulosis of large intestine without perforation or abscess without bleeding CPT copyright 2017 [employer]. All rights reserved. The codes documented in this report are preliminary and upon livestock nutrition territory manager review may be revised to meet current compliance requirements. MD Torrey Abdalla MD 07/10/2020 10:28:53 AM This report has been signed electronically. Number of Addenda: 0 Note Initiated On: 07/10/2020 10:00 AM
[2020-07-10 10:30] VITALS: BP 121/57; BP 123/55; PULSE 87; RESP 17; O2SAT 98
[2020-07-10 10:35] VITALS: BP 121/57; BP 131/62; PULSE 90; RESP 16; O2SAT 98
[2020-07-10 10:40] VITALS: BP 121/57; BP 130/61; PULSE 87; RESP 16; TEMP 36.3; O2SAT 96
== END 2020-07-10 11:24 | disposition home or self-care (01) ==
LOC: EN 08:46 → AC 08:46
PROVIDERS: PCP Family Medicine; Referring Provider Surgery; Visit Provider Surgery
PROC: 0DJD8ZZ Inspection of Lower Intestinal Tract, Via Natural or Artificial Opening Endoscopic (ICD-10-PCS; CPT 45378; principal; 2020-07-10 09:40)
DX: D12.5 Benign neoplasm of sigmoid colon (principal); K57.30 Diverticulosis of large intestine without perforation or abscess without bleeding; K44.9 Diaphragmatic hernia without obstruction or gangrene; K31.89 Other diseases of stomach and duodenum; R13.10 Dysphagia, unspecified; K64.8 Other hemorrhoids; D64.9 Anemia, unspecified; I25.10 Atherosclerotic heart disease of native coronary artery without angina pectoris; I50.22 Chronic systolic (congestive) heart failure; K21.9 Gastro-esophageal reflux disease without esophagitis; E66.9 Obesity, unspecified; Z86.718 Personal history of other venous thrombosis and embolism; Z79.01 Long term (current) use of anticoagulants; Z79.82 Long term (current) use of aspirin; Z20.828 Contact with and (suspected) exposure to other viral communicable diseases; Z79.899 Other long term (current) drug therapy; Z86.711 Personal history of pulmonary embolism; Z68.33 Body mass index [BMI] 33.0-33.9, adult
CPT/HCPCS: 43239; 45385; 36416; 85610; 87426; 88305; 88342; C9803; J7120; J2405

== ENCOUNTER → 2020-07-23 08:15 | Outpatient (CLI) | payer MEDICARE, SELFPAY ==
[2020-07-10 09:22] VITALS: BMI 34.9
[2020-07-23 10:02] LABS: International Normalized Ratio 1.1; Prothrombin Time (Protime)PT. 13.2 SECONDS (11.7-14.9)
[2020-07-23 10:18] LABS: Hemoglobin A1c 5.4 % (3.8-5.6)
[2020-07-23 10:22] LABS: Cholesterol 164 mg/dL (200); High Density Lipoprotein 47 mg/dL; Triglycerides 125 mg/dL; Very Low Density Lipoprotein 25 mg/dL (5-40)
== END ==
PROVIDERS: PCP Family Medicine; Visit Provider Internal Medicine Cardiovascular Disease
DX: E78.5 Hyperlipidemia, unspecified (principal); E11.42 Type 2 diabetes mellitus with diabetic polyneuropathy; I74.9 Embolism and thrombosis of unspecified artery; I25.10 Atherosclerotic heart disease of native coronary artery without angina pectoris; Z79.01 Long term (current) use of anticoagulants
CPT/HCPCS: 36415; 80061; 83036; 85610

== ENCOUNTER → 2020-08-23 08:48 | Outpatient (CLI) | payer MEDICARE, SELFPAY ==
[2020-08-23 10:59] LABS: Hematocrit 35.3 % (37-47); Hemoglobin 10.9 g/dL (12.0-15.0); Mean Corp Hgb Conc 30.9 g/dL (32-36); Mean Corpuscular Hgb 31.3 pg (27.0-32.0); Mean Corpuscular Volume 101.4 fL (81-99); POSITIVE COUNT YES; POSITIVE MORPHOLOGY YES; Platelet Count 121 K/mm3 (150-450); RBC Distribution Width CV 17.8 % (11.6-14.6); RBC Distribution Width SD 63.3 fl (35.1-43.9); Red Blood Count 3.48 M/mm3 (4.2-5.4); White Blood Count 4.9 K/mm3 (4.4-11.0)
[2020-08-23 11:01] LABS: Differential Indicated MANUAL DIFF
[2020-08-23 11:34] LABS: Eosinophil 1 % (0-5); Lymphocyte 38 % (19-41); Metamyelocyte 6 % (0-1); Monocyte 1 % (0-10); Neutrophil-Band 2 % (0-5); Neutrophil-Segmented 52 % (47-70); Total Cells Counted 100 (MANUAL DIFF)
[2020-08-23 11:35] LABS: Hypochromasia 1+; Platelet Estimate SLT DEC (ADEQ); Red Cell Morphology N CYTIC NORMAL (NORM C&C)
[2020-08-23 11:36] LABS: Absolute Lymphocyte Count 1.86 X10^3/uL (0.83-4.51); Absolute Neutrophil Count 2.6 X10^3/uL (2.0-7.7); Lymphocyte # 1.86 X10^3/ul (4.0); Neutrophil # 2.64 X10^3/uL (2.7-7.7)
[2020-08-23 12:04] LABS: Anion Gap 5 (5-15); BUN 15 mg/dL (7-18); BUN/Creat Ratio 15.2 RATIO (10-20); Calcium,Total 8.9 mg/dL (8.5-10.1); Chloride 102 mmol/L (98-107); Creatinine, Serum 0.99 mg/dL (0.55-1.02); EST Glomerular Filtration Rate 57 mL/min (>60); Est Glom Filt Rate - Afr Amer 69 mL/min (>60); Glucose 116 mg/dL (74-106); Potassium 3.6 mmol/L (3.5-5.1); Sodium Level 137 mmol/L (136-145)
[2020-08-26 13:38] LABS: Pathologist Review Reviewed
== END ==
PROVIDERS: PCP Family Medicine; Visit Provider Family Medicine
DX: S70.10XA Contusion of unspecified thigh, initial encounter (principal); D64.9 Anemia, unspecified
CPT/HCPCS: 36415; 80048; 85025

== ENCOUNTER → 2020-09-16 09:16 | Outpatient (CLI) | payer MEDICARE, SELFPAY ==
[2020-09-16 11:09] LABS: Prothrombin Time (Protime)PT. 21.9 SECONDS (11.7-14.9)
== END ==
PROVIDERS: PCP Family Medicine; Referring Provider Internal Medicine Cardiovascular Disease; Visit Provider Internal Medicine Cardiovascular Disease
DX: I74.9 Embolism and thrombosis of unspecified artery (principal); Z79.01 Long term (current) use of anticoagulants; I25.10 Atherosclerotic heart disease of native coronary artery without angina pectoris
CPT/HCPCS: 36415; 85610

== ENCOUNTER → 2020-09-30 07:06 | Outpatient (CLI) | payer MEDICARE, SELFPAY ==
[2020-09-30 11:14] LABS: International Normalized Ratio 2.8
== END ==
PROVIDERS: PCP Family Medicine; Visit Provider Internal Medicine Cardiovascular Disease
DX: I74.9 Embolism and thrombosis of unspecified artery (principal); I25.10 Atherosclerotic heart disease of native coronary artery without angina pectoris; Z79.01 Long term (current) use of anticoagulants
CPT/HCPCS: 36415; 85610

== ENCOUNTER → 2020-10-21 08:09 | Outpatient (CLI) | payer MEDICARE, SELFPAY ==
[2020-10-15 08:56] VITALS: BMI 33.3
[2020-10-21 10:47] LABS: Mucous, Urine 0 SEEN /hpf (<or=2+)
[2020-10-21 10:59] LABS: Color, Urine Yellow (Yellow); Glucose, Dipstick Normal (Normal); Ketone-Dipstick Negative (Negative); Leukocyte Esterase-Dipstick 500 /ul (Negative); Nitrite-Dipstick Positive (Negative); Occult Blood-Urine 10 /ul (Negative); Protein-Dipstick Negative (Negative); Urine Bilirubin Dipstick Negative (Negative); Urine Clarity Sl. Cloudy (Clear); Urine Urobilinogen Normal (Normal); Urine pH 6.5 (5.0 - 8.0)
[2020-10-21 11:02] LABS: Hematocrit 29.4 % (37-47); Mean Corp Hgb Conc 30.6 g/dL (32-36); Mean Corpuscular Hgb 31.4 pg (27.0-32.0); Mean Corpuscular Volume 102.4 fL (81-99); Mean Platelet Vol. 13.7 fl (6.2-12.0); POSITIVE COUNT YES; POSITIVE MORPHOLOGY YES; Platelet Count 332 K/mm3 (150-450); RBC Distribution Width CV 17.3 % (11.6-14.6); RBC Distribution Width SD 64.8 fl (35.1-43.9); Red Blood Count 2.87 M/mm3 (4.2-5.4); White Blood Count 13.8 K/mm3 (4.4-11.0)
[2020-10-21 11:17] LABS: International Normalized Ratio 1.5; Prothrombin Time (Protime)PT. 17.8 SECONDS (11.7-14.9)
[2020-10-21 11:19] LABS: Differential Indicated MANUAL DIFF
[2020-10-21 11:24] LABS: Bacteria 1+ /hpf (None Seen); Red Blood Cells-Urine 0-5 SEEN /hpf (0-5); Squamous Epithelial Cells - UA 0-5 SEEN /hpf (5-10); White Blood Cells 25-50 SEEN /hpf (0-5)
[2020-10-21 11:35] LABS: Anion Gap 6 (5-15); BUN 17 mg/dL (7-18); BUN/Creat Ratio 15.6 RATIO (10-20); Calcium,Total 8.5 mg/dL (8.5-10.1); Chloride 105 mmol/L (98-107); Creatinine, Serum 1.09 mg/dL (0.55-1.02); EST Glomerular Filtration Rate 51 mL/min (>60); Est Glom Filt Rate - Afr Amer 62 mL/min (>60); Glucose 151 mg/dL (74-106); Potassium 3.7 mmol/L (3.5-5.1); Sodium Level 140 mmol/L (136-145); Thyroid Stim Hormone (TSH) 2.55 uIU/mL (0.358-3.74)
[2020-10-21 12:26] LABS: Basophil 1 % (0-1); Eosinophil 5 % (0-5); Lymphocyte 26 % (19-41); Metamyelocyte 6 % (0-1); Monocyte 8 % (0-10); Myelocyte 8 (0-0); Neutrophil-Band 20 % (0-5); Neutrophil-Segmented 25 % (47-70); Promyelocyte 1 (0-0); Total Cells Counted 100 (MANUAL DIFF)
[2020-10-21 12:28] LABS: Absolute Lymphocyte Count 3.59 X10^3/uL (0.83-4.51); Absolute Neutrophil Count 6.2 X10^3/uL (2.0-7.7)
[2020-10-21 12:32] LABS: Platelet Estimate ADEQUATE (ADEQ)
[2020-10-21 12:33] LABS: Anisocytosis 1+; Basophilic Stippling RARE; Macrocytosis 1+; Platelet Morphology GIANT; Polychromasia 1+
[2020-10-22 12:38] LABS: Pathologist Review Reviewed
== END ==
PROVIDERS: Nurse Practitioner Family; PCP Family Medicine; Visit Provider Internal Medicine Cardiovascular Disease
DX: R30.0 Dysuria (principal); I10 Essential (primary) hypertension; R53.83 Other fatigue; I44.7 Left bundle-branch block, unspecified; I25.10 Atherosclerotic heart disease of native coronary artery without angina pectoris; D64.9 Anemia, unspecified; R26.2 Difficulty in walking, not elsewhere classified; I74.9 Embolism and thrombosis of unspecified artery; Z79.01 Long term (current) use of anticoagulants; Z95.1 Presence of aortocoronary bypass graft
CPT/HCPCS: 36415; 80048; 81001; 84439; 84443; 85025; 85610; 87086; 87088; 87186

== ENCOUNTER → 2020-10-30 07:55 | Outpatient (CLI) | payer MEDICARE, SELFPAY ==
[2020-10-15 08:56] VITALS: BMI 33.3
[2020-10-30 10:39] LABS: International Normalized Ratio 2.3; Prothrombin Time (Protime)PT. 24.8 SECONDS (11.7-14.9)
== END ==
PROVIDERS: PCP Family Medicine; Referring Provider Internal Medicine Cardiovascular Disease; Visit Provider Internal Medicine Cardiovascular Disease
DX: I25.10 Atherosclerotic heart disease of native coronary artery without angina pectoris (principal); I74.9 Embolism and thrombosis of unspecified artery; Z79.01 Long term (current) use of anticoagulants
CPT/HCPCS: 36415; 85610

== ENCOUNTER 2020-11-10 09:59 | Emergency (ER) | payer MEDICARE, SELFPAY ==
[2020-10-15 08:56] VITALS: BMI 33.3
[2020-11-10] VITALS (11 sets, daily range): BP systolic 101–124; BP diastolic 54–86; PULSE 82–121; RESP 11–18; TEMP 35.8–37; O2SAT 97–100; BMI 34.2
--- NOTE | 2020-11-10 10:09 | EKG12_ITS ---
Test Reason : Blood Pressure : / mmHG Vent. Rate : 107 BPM Atrial Rate : 107 BPM P-R Int : 200 ms QRS Dur : 132 ms QT Int : 356 ms P-R-T Axes : 051 -26 008 degrees QTc Int : 475 ms Sinus tachycardia Non-specific intra-ventricular conduction block Abnormal ECG Confirmed by KALE YADAV, MISTY ([id number]), editor sound RAINER EUGENE ([id number]) on 11/14/2020 9:25:23 AM Referred By: ROSE Confirmed By:MISTY HENLEY MD
--- NOTE | 2020-11-10 10:22 | ED.VIS.GEN ---
History of Present Illness Chief Complaint: GI Bleed Informant: Patient Narrative: Patient is an 79-year-old female with a past medical history of CAD, DVT/PE on Coumadin who presents to the emergency department for black stools and vomiting blood this morning. Her last bowel movement was last night whenever she noticed the dark stool. She is never had this happen before. She denies any abdominal pain associated with this. She states that she feels woozy like she is mildly nauseous. She has been feeling mildly short of breath. She denies any chest pain. No near syncopal symptoms. She states she is due for her INR check. The last checked approximately 2 weeks ago was therapeutic. She states that she has had EGDs as well as colonoscopies which were normal in the past. No easy bleeding or bruising elsewhere. She states that she has had her tubes tied and had a pinhole in her bowel at one point. She says she also has a history of anemia and is supposed to be on iron but has not been taking it due to it making her feel sick. Of note she did finish a course of antibiotics for urinary tract infection this past Wednesday. Past Medical History - Allergies and Home Meds Allergies/Adverse Reactions: Allergies doxycycline Allergy (Mild, Verified 10/15/20 08:53) Swelling Sulfa (Sulfonamide Antibiotics) Allergy (Verified 10/15/20 08:53) Rash tetracycline [Tetracycline] Allergy (Verified 10/15/20 08:53) Swelling dicyclomine Adverse Reaction (Verified 10/15/20 08:53) Other NSAIDS (Non-Steroidal Anti-Inflamma Adverse Reaction (Verified 10/15/20 08:53) Other Penicillins Adverse Reaction (Verified 10/15/20 08:53) Unknown Primary Care Physician: Osiel Arzola MD [Primary Care Provider] - Prior records reviewed: Yes Surgical History: appendectomy, cholecystectomy, coronary bypass surgery - 2002, hysterectomy, - - Breast reduction, right knee partial replacement, left knee repair, perforated bowel repair. kyphoplasty Smoking Status: Never smoker - Family History Maternal Family History: Family History (Last Reviewed 07/03/20 @ 14:11 by Virginia Taylor) Mother Myocardial infarction Hypertension Heart disease History of coronary artery bypass graft Brother Hypertension History of coronary artery bypass graft Father Cancer Family History: Reports: Heart Disease, Hypertension Paternal Family History: Family History (Last Reviewed 07/03/20 @ 14:11 by Virginia Taylor) Mother Myocardial infarction Hypertension Heart disease History of coronary artery bypass graft Brother Hypertension History of coronary artery bypass graft Father Cancer Family History: Reports: Cancer Review of Systems All systems negative except as indicated General: Denies: Chills, Fever, Sweats Eyes: Denies: Visual changes - bilaterally, Diplopia ENT: Denies: Rhinorrhea, Sore throat Cardiovascular: Denies: Chest pain, Palpitations Respiratory: Reports: Dyspnea. Denies: Cough, Dyspnea on exertion Gastrointestinal: Reports: Nausea, Vomiting, Melena. Denies: Abdominal pain, Diarrhea Genitourinary: Denies: Dysuria, Hematuria, Frequency Musculoskeletal: Denies: Back pain, Extremity Pain Skin: Denies: Rash, Wounds Neurological: Denies: Headache, Weakness, Numbness Hematologic: Denies: Easy bruising, Easy bleeding Physical Exam Vital Signs/Narrative: Vital Signs Temp Pulse Resp BP Pulse Ox 11/10/20 10:00 96.4 F L 117 H 18 108/59 L 99 Inital Vital Signs reviewed: Yes General: Well nourished, Well developed, No Acute Distress Head: Normocephalic, Atraumatic Eyes: Perrl, EOMI ENT: Moist mucous membranes, No rhinorrhea Neck: Supple, Nontender Cardiovascular: Regular rhythm, No murmurs, Tachycardia Respiratory: No distress, CTA bilaterally, Chest nontender Abdomen: Soft, Nontender, Nondistended, Normal bowel sounds Back: Nontender, Normal Inspection Extremities: Nontender, No edema Skin: No rash, Pallor Neurological: Alert, Oriented x3, Cranial nerves II-XII grossly intact, Normal Strength, Normal Sensation Psychological: Normal affect, Normal Mood Diagnostic/Tx/Re-eval Chest X-Ray - ED: - - Single view portable x-ray interpreted by myself. Clear lung pfeiffer bilaterally. No pleural effusions. Normal cardiac silhouette. Pacemaker/defibrillator in place. Agree with radiologist interpretation. - EKG Initial EKG Interpretation: - - Rate of 107 bpm in sinus tachycardia. Prolonged QRS of 132 with intraventricular block. No significant ST elevations or depressions appreciated. T wave inversion in lead III but otherwise no significant acute T wave abnormality. - Medical Decision Making Patient presents to the emergency department for black stools and vomiting blood. She is on Coumadin. Upon arrival to the emergency department she has mildly tachycardic. She does not have any abdominal pain. Given concern for upper GI bleed she is given a dose of IV Protonix and basic lab work being obtained including PT/INR and type/screen. Patient's hemoglobin is 8 which is one-point lower than her last lab draw earlier this month. Her INR is 3.0. Unfortunately do not have GI coverage to admit her to the hospital here. Patient is requesting to be transferred to [facility]. I did speak with the hospitalist and the hospitalist is requesting that her Coumadin be reversed. They are asking for FFP and vitamin K to be given. She did have a melanotic stool in the emergency department. Risk associated being reversed were discussed with her and the relative at bedside. She did not have any more episodes of vomiting blood throughout ED stay. Her tachycardia did start to come down with the IV fluids. She was transfused 1 unit of packed red blood cells. Throughout ED stay she started develop some left-sided chest discomfort. EKG was repeated which did not show any acute changes. This did start to improve just prior to being transferred. She otherwise has been stable throughout ED stay. Due to the patient's leukocytosis the hospitalist also recommended to obtain blood cultures. She has no obvious source of infection. Chest x-ray not show any signs of pneumonia. Urinalysis will be reobtained but she was recently treated for UTI on antibiotics. She is without symptoms now. She does not have a high neutrophil count but does have blast cells. The hospitalist is made aware this and will require further evaluation. ED Disposition - Plan for ED Patient: Disposition: [facility] Diagnosis: GI bleed, Coagulopathy, Leukocytosis, NIKHIL (acute kidney injury) Referrals: Osiel Arzola MD [Primary Care Provider] -
[2020-11-10] MEDS: Ondansetron 4 MG/2 ML Vial IV (10:29)
[2020-11-10 10:40] LABS: Hematocrit 26.8 % (37-47); Mean Corp Hgb Conc 29.9 g/dL (32-36); Mean Corpuscular Hgb 30.9 pg (27.0-32.0); Mean Corpuscular Volume 103.5 fL (81-99); POSITIVE COUNT YES; POSITIVE MORPHOLOGY YES; Platelet Count 323 K/mm3 (150-450); RBC Distribution Width CV 19.8 % (11.6-14.6); RBC Distribution Width SD 73.6 fl (35.1-43.9); Red Blood Count 2.59 M/mm3 (4.2-5.4); White Blood Count 27.4 K/mm3 (4.4-11.0)
[2020-11-10 10:47] LABS: Partial Thromboplast Time 35.7 Seconds (24.1-36.2); Prothrombin Time (Protime)PT. 30.5 SECONDS (11.7-14.9)
[2020-11-10 10:53] LABS: Differential Indicated MANUAL DIFF
[2020-11-10 10:55] LABS: AST(SGOT) 20 U/L (15-37); Alanine Aminotransfer ALT/SGPT 16 U/L (13-56); Albumin, Serum 3.2 g/dL (3.2-5.0); Alkaline Phosphatase 42 U/L (45-117); Anion Gap 7 (5-15); BUN 49 mg/dL (7-18); BUN/Creat Ratio 37.4 RATIO (10-20); Calcium,Total 9.3 mg/dL (8.5-10.1); Chloride 104 mmol/L (98-107); Creatinine, Serum 1.31 mg/dL (0.55-1.02); EST Glomerular Filtration Rate 41 mL/min (>60); Est Glom Filt Rate - Afr Amer 50 mL/min (>60); Estimated Creatinine Clearance 30.31 ml/min; Globulin 3.3 g/dL (2.2-4.2); Glucose 115 mg/dL (74-106); Potassium 4.4 mmol/L (3.5-5.1); Protein, Total 6.5 g/dL (6.4-8.2); Sodium Level 137 mmol/L (136-145)
--- NOTE | 2020-11-10 11:10 | RAD_ITS ---
STUDY: X-RAY CHEST REASON FOR EXAM: Female, 79 years old. Substernal pain TECHNIQUE: Single AP portable view of the chest. COMPARISON: 12/03/2019 and 11/10/2019 FINDINGS: There is now a left-sided dual lead pacer defibrillator device present with right atrial and right ventricular leads. The leads appear intact. There is evidence of prior thoracic surgery with sternal wire sutures and mediastinal clips. The lungs are clear and expanded. There is no demonstrated pleural abnormality. Normal size heart. Normal mediastinum and pranay. Normal visualized pulmonary arteries. Mild atherosclerosis of the aorta noted. Once again note is made of vertebral plana of a lower thoracic level with prior vertebroplasty. Normal visualized ribs, clavicles, and shoulders. Suspect small hiatal hernia. RAD/Chest 1 View (Portable) IMPRESSION: No acute intrathoracic process. There is now a left-sided pacer defibrillator device present. Electronically Signed: Lizzie Preston MD at 11:35 EDT , Service support ,
[2020-11-10 11:28] LABS: Eosinophil 1 % (0-5); Lymphocyte 16 % (19-41); Metamyelocyte 9 % (0-1); Monocyte 3 % (0-10); Myelocyte 11 % (0-0); Neutrophil-Band 5 % (0-5); Neutrophil-Segmented 51 % (47-70); Promyelocyte 2 % (0-0); Total Cells Counted 100 (MANUAL DIFF)
[2020-11-10 11:29] LABS: Anisocytosis 2+; Macrocytosis 1+; Microcytosis 1+; Platelet Estimate ADEQUATE (ADEQ); Platelet Morphology LARGE
[2020-11-10 11:30] LABS: Absolute Neutrophil Count 15.3 X10^3/uL (2.0-7.7)
[2020-11-10 11:31] LABS: Absolute Lymphocyte Count 4.38 X10^3/uL (0.83-4.51); Blast 2 % (0-0)
[2020-11-10 12:48] LABS: Lactic Acid 1.6 mmol/L (0.4-1.9)
--- NOTE | 2020-11-10 14:19 | NURSING ---
JARON BACON AT [facility]; REPORTED TO HER THE NEGATIVE COVID RESULT. WAITING ON A BED AND WILL CALL US WHEN SHE HAS ONE
--- NOTE | 2020-11-10 14:55 | EKG12_ITS ---
Test Reason : Blood Pressure : / mmHG Vent. Rate : 117 BPM Atrial Rate : 117 BPM P-R Int : 200 ms QRS Dur : 134 ms QT Int : 336 ms P-R-T Axes : 025 -27 181 degrees QTc Int : 468 ms Sinus tachycardia with Fusion complexes Non-specific intra-ventricular conduction block Abnormal ECG Confirmed by KALE YADAV, MISTY ([id number]), newspaper copy editor RAINER EUGENE ([id number]) on 11/14/2020 9:25:01 AM Referred By: ROSE Confirmed By:MISTY HENLEY MD
--- NOTE | 2020-11-10 18:05 | ED.RN ---
PATIENT TRANSFERRED TO [facility] VIA EMS WITH BLOOD STILL TRANSFUSING. 100ML OF BLOOD INFUSED IN ED.
[2020-11-11 13:46] LABS: Pathologist Review Reviewed
== END 2020-11-10 17:16 | disposition short-term general hospital (02) ==
LOC: ED 10:42
PROVIDERS: Emergency Provider Emergency Medicine; PCP Family Medicine
DX: K92.2 Gastrointestinal hemorrhage, unspecified (principal); N17.9 Acute kidney failure, unspecified; I25.10 Atherosclerotic heart disease of native coronary artery without angina pectoris; D68.9 Coagulation defect, unspecified; N39.0 Urinary tract infection, site not specified; I45.4 Nonspecific intraventricular block; Z79.01 Long term (current) use of anticoagulants; Z82.49 Family history of ischemic heart disease and other diseases of the circulatory system; Z86.718 Personal history of other venous thrombosis and embolism; Z88.0 Allergy status to penicillin; Z88.1 Allergy status to other antibiotic agents; Z88.2 Allergy status to sulfonamides; Z88.6 Allergy status to analgesic agent; Z90.49 Acquired absence of other specified parts of digestive tract; Z90.710 Acquired absence of both cervix and uterus
CPT/HCPCS: 36430; 71045; 80053; 83605; 84484; 85025; 85610; 85730; 86850; 86900; 86901; 86920; 87040; 87426; 93005; 96365; 96375; 99285; J7040; J7050; P9016; A4216; J2405; J3490

== ENCOUNTER → 2020-11-25 09:00 | Outpatient (CLI) | payer MEDICARE, SELFPAY ==
[2020-11-10 10:00] VITALS: BMI 34.2
[2020-11-25 11:13] LABS: International Normalized Ratio 1.6; Prothrombin Time (Protime)PT. 18.2 SECONDS (11.7-14.9)
== END ==
PROVIDERS: PCP Family Medicine; Visit Provider Internal Medicine Cardiovascular Disease
DX: I74.9 Embolism and thrombosis of unspecified artery (principal); Z79.01 Long term (current) use of anticoagulants; I25.10 Atherosclerotic heart disease of native coronary artery without angina pectoris
CPT/HCPCS: 36415; 85610

== ENCOUNTER → 2020-12-02 09:16 | Outpatient (CLI) | payer MEDICARE, SELFPAY ==
[2020-11-26 14:57] VITALS: BMI 34.6
[2020-12-02 11:00] LABS: International Normalized Ratio 2.3; Prothrombin Time (Protime)PT. 24.7 SECONDS (11.7-14.9)
== END ==
PROVIDERS: PCP Family Medicine; Referring Provider Internal Medicine Cardiovascular Disease; Visit Provider Internal Medicine Cardiovascular Disease
DX: I74.9 Embolism and thrombosis of unspecified artery (principal); I25.10 Atherosclerotic heart disease of native coronary artery without angina pectoris; Z79.01 Long term (current) use of anticoagulants
CPT/HCPCS: 36415; 85610

== ENCOUNTER → 2020-12-04 12:41 | Outpatient (CLI) | payer MEDICARE, SELFPAY ==
[2020-11-26 14:57] VITALS: BMI 34.6
== END ==
PROVIDERS: PCP Family Medicine; Visit Provider Family Medicine
DX: N39.41 Urge incontinence (principal); R82.90 Unspecified abnormal findings in urine
CPT/HCPCS: 87077; 87086; 87088; 87186

== ENCOUNTER → 2020-12-13 17:38 | Outpatient (CLI) | payer MEDICARE, SELFPAY ==
[2020-12-11 15:29] VITALS: BMI 34.1
[2020-12-13 17:56] LABS: Hematocrit 29.9 % (37-47); Hemoglobin 8.8 g/dL (12.0-15.0); Mean Corp Hgb Conc 29.4 g/dL (32-36); Mean Corpuscular Hgb 28.7 pg (27.0-32.0); Mean Corpuscular Volume 97.4 fL (81-99); Mean Platelet Vol. 13.7 fl (6.2-12.0); POSITIVE MORPHOLOGY YES; Platelet Count 296 K/mm3 (150-450); RBC Distribution Width SD 76.8 fl (35.1-43.9); Red Blood Count 3.07 M/mm3 (4.2-5.4); White Blood Count 26.4 K/mm3 (4.4-11.0)
[2020-12-13 18:43] LABS: Anion Gap 6 (5-15); BUN 15 mg/dL (7-18); BUN/Creat Ratio 13.9 RATIO (10-20); Calcium,Total 8.2 mg/dL (8.5-10.1); Chloride 105 mmol/L (98-107); Creatinine, Serum 1.08 mg/dL (0.55-1.02); EST Glomerular Filtration Rate 52 mL/min (>60); Est Glom Filt Rate - Afr Amer 63 mL/min (>60); Glucose 92 mg/dL (74-106); Potassium 4.3 mmol/L (3.5-5.1); Sodium Level 136 mmol/L (136-145)
[2020-12-13 19:25] LABS: Scan Indicated on CBC? Y/N YES- FLAGS NOTED
[2020-12-13 19:48] LABS: BNP,B-Type NATRIURETIC PEPTIDE 517.1 pg/mL (0-100)
[2020-12-16 13:38] LABS: Pathologist Review Reviewed
== END ==
PROVIDERS: PCP Family Medicine; Referring Provider Nurse Practitioner Family; Visit Provider Nurse Practitioner Family
DX: K92.2 Gastrointestinal hemorrhage, unspecified (principal)
CPT/HCPCS: 80048; 83880; 85027

== ENCOUNTER → 2020-12-16 04:09 | Outpatient (CLI) | payer MEDICARE, SELFPAY ==
[2020-12-11 15:29] VITALS: BMI 34.1
[2020-12-16 12:19] LABS: Hematocrit 28.7 % (37-47); Hemoglobin 8.4 g/dL (12.0-15.0); Mean Corp Hgb Conc 29.3 g/dL (32-36); POSITIVE COUNT YES; POSITIVE DIFFERENTIAL YES; POSITIVE MORPHOLOGY YES; Platelet Count 304 K/mm3 (150-450); RBC Distribution Width CV 22.6 % (11.6-14.6); RBC Distribution Width SD 80.4 fl (35.1-43.9); White Blood Count 27.5 K/mm3 (4.4-11.0)
[2020-12-16 12:21] LABS: Differential Indicated MANUAL DIFF
[2020-12-16 12:30] LABS: International Normalized Ratio 2.8; Prothrombin Time (Protime)PT. 28.9 SECONDS (11.7-14.9)
[2020-12-16 12:48] LABS: Anion Gap 8 (5-15); BUN 14 mg/dL (7-18); BUN/Creat Ratio 12.2 RATIO (10-20); Calcium,Total 8.9 mg/dL (8.5-10.1); Chloride 104 mmol/L (98-107); Creatinine, Serum 1.15 mg/dL (0.55-1.02); EST Glomerular Filtration Rate 48 mL/min (>60); Est Glom Filt Rate - Afr Amer 58 mL/min (>60); Glucose 113 mg/dL (74-106); Potassium 3.8 mmol/L (3.5-5.1); Sodium Level 137 mmol/L (136-145)
[2020-12-16 13:04] LABS: Anisocytosis 1+; Blast 4 % (0-0); Eosinophil 3 % (0-5); Lymphocyte 6 % (19-41); Metamyelocyte 12 % (0-1); Monocyte 6 % (0-10); Myelocyte 10 % (0-0); Neutrophil-Segmented 48 % (47-70); Platelet Estimate ADEQUATE (ADEQ); Promyelocyte 11 % (0-0); Red Cell Morphology N CHROM NORMAL (NORM C&C); Total Cells Counted 100 (MANUAL DIFF)
[2020-12-16 13:05] LABS: Absolute Neutrophil Count 13.2 X10^3/uL (2.0-7.7)
[2020-12-17 13:02] LABS: Pathologist Review Reviewed
== END ==
PROVIDERS: Nurse Practitioner Family; PCP Family Medicine; Referring Provider Internal Medicine Cardiovascular Disease; Visit Provider Internal Medicine Cardiovascular Disease
DX: I74.9 Embolism and thrombosis of unspecified artery (principal); I25.10 Atherosclerotic heart disease of native coronary artery without angina pectoris; Z79.01 Long term (current) use of anticoagulants; D64.9 Anemia, unspecified
CPT/HCPCS: 36415; 80048; 85025; 85610

== ENCOUNTER → 2021-01-02 07:56 | Outpatient (CLI) | payer MEDICARE, SELFPAY ==
[2020-12-11 15:29] VITALS: BMI 34.1
[2021-01-02 10:35] LABS: International Normalized Ratio 4.5; Prothrombin Time (Protime)PT. 42.3 SECONDS (11.7-14.9)
== END ==
PROVIDERS: PCP Family Medicine; Visit Provider Internal Medicine Cardiovascular Disease
DX: Z79.01 Long term (current) use of anticoagulants (principal)
CPT/HCPCS: 36415; 85610

== ENCOUNTER → 2021-01-07 08:43 | Outpatient (CLI) | payer MEDICARE, SELFPAY ==
[2020-12-11 15:29] VITALS: BMI 34.1
[2021-01-07 11:16] LABS: International Normalized Ratio 2.3; Prothrombin Time (Protime)PT. 24.8 SECONDS (11.7-14.9)
== END ==
PROVIDERS: PCP Family Medicine; Referring Provider Internal Medicine Cardiovascular Disease; Visit Provider Internal Medicine Cardiovascular Disease
DX: I74.9 Embolism and thrombosis of unspecified artery (principal); I25.10 Atherosclerotic heart disease of native coronary artery without angina pectoris; Z79.01 Long term (current) use of anticoagulants
CPT/HCPCS: 36415; 85610

== ENCOUNTER → 2021-01-14 09:33 | Outpatient (CLI) | payer MEDICARE, SELFPAY ==
[2020-12-11 15:29] VITALS: BMI 34.1
[2021-01-14 11:08] LABS: International Normalized Ratio 3.2; Prothrombin Time (Protime)PT. 31.6 SECONDS (11.7-14.9)
== END ==
PROVIDERS: Referring Provider Internal Medicine Cardiovascular Disease; Visit Provider Internal Medicine Cardiovascular Disease
DX: I74.9 Embolism and thrombosis of unspecified artery (principal); I25.10 Atherosclerotic heart disease of native coronary artery without angina pectoris; Z79.01 Long term (current) use of anticoagulants
CPT/HCPCS: 36415; 85610

== ENCOUNTER → 2021-01-15 10:42 | Outpatient (CLI) | payer MEDICARE, SELFPAY ==
[2020-12-11 15:29] VITALS: BMI 34.1
[2021-01-15 11:17] LABS: Color, Urine Yellow (Yellow); Glucose, Dipstick Normal (Normal); Ketone-Dipstick Negative (Negative); Leukocyte Esterase-Dipstick 100 /ul (Negative); Nitrite-Dipstick Negative (Negative); Occult Blood-Urine 10 /ul (Negative); Protein-Dipstick 30 mg/dl (Negative); Urine Bilirubin Dipstick Negative (Negative); Urine Clarity Sl. Cloudy (Clear); Urine Urobilinogen Normal (Normal)
== END ==
PROVIDERS: Referring Provider Family Medicine; Visit Provider Family Medicine
DX: N39.0 Urinary tract infection, site not specified (principal)
CPT/HCPCS: 81002; 87086; 87088; 87186

== ENCOUNTER 2021-01-21 14:58 | Emergency (ER) | payer MEDICARE, SELFPAY ==
[2021-01-15 14:14] VITALS: BMI 32.9
[2021-01-21 15:00] VITALS: BP 130/69; PULSE 99; RESP 15; TEMP 36.1; O2SAT 98; BMI 32.5
--- NOTE | 2021-01-21 15:10 | CT_ITS ---
HISTORY: llq pain EXAMINATION: CT Abdomen And Pelvis W/ Contrast Injection TECHNIQUE: Helically acquired images were obtained of the abdomen and pelvis following IV contrast. A radiation dose optimization technique was used for this scan. IV Contrast dosage and agent: 100mL Isovue-300 Oral contrast: None. COMPARISON: CT abdomen and pelvis 06/23/16, chest CT 05/10/19 FINDINGS: LOWER CHEST: Lung bases are clear. No cardiomegaly or pericardial effusion. Moderate retrocardiac hiatal hernia LIVER: Homogeneous. No focal mass. GALLBLADDER AND BILIARY TREE: Cholecystectomy. No intra- or extrahepatic biliary ductal dilation. PANCREAS: No focal cystic or solid mass. SPLEEN: Normal size without focal cystic or solid mass. ADRENAL GLANDS: No nodules. KIDNEYS AND URETERS: Normal renal size and position. No hydronephrosis. PERITONEUM: No ascites or free air. BOWEL: No evidence of acute appendicitis. No stomach or bowel distension. Sigmoid diverticulosis the segment of wall thickening and mild adjacent stranding in the proximal sigmoid colon. LYMPH NODES: No enlarged mesenteric or retroperitoneal lymph nodes. VESSELS: Aorta is non-dilated. URINARY BLADDER: Unremarkable. REPRODUCTIVE ORGANS: No pelvic masses. BONES: Stable treated T12 compression fracture and mild L1 compression deformity. Mild loss of height of L4 which is new from the 04/[address]/Abdomen/Pelvis W IV Cont ONLY IMPRESSION: Mild acute sigmoid diverticulitis. No pelvic abscess or evidence of perforation. Individualized dose optimization techniques were used for this CT. at 1637 Reported and signed by: Benjamin Heard MD Electronically Signed: Benjamin Heard MD at 16:35 EDT Tel , Service support ,
--- NOTE | 2021-01-21 15:20 | EDS_ITS ---
HPI History of Present Illness Chief Complaint: Abd Pain Informant: patient Onset/Context/Timing Onset: Days Context: Gradual Onset Timing: Continuous Current Severity: Moderate Maximum Severity: Moderate Narrative Narrative: Patient is an 80-year-old female medical history significant for prior bypass surgery, chronic kidney disease, compression fracture who is a long-term analgesics, who presents to the emergency department with abdominal pain and constipation. The patient states that normally, she does have dif ficulty with constipation, but it is worsened. She states for the past 2 days, she has been able to move her bowels. She has been nauseated with some dry heaves. She states that she has had increasing left lower quadrant abdominal pain. She denies dysuria. She denies any fevers or chills. She does have history of prior cholecystectomy, hysterectomy, and appendectomy. She denies any rectal bleeding. Prior similar symptoms: Yes Recent Illness/Hospitalization: No [facility] Medical History Abnormal stress test Atherosclerosis of coronary artery bypass graft(s), unspecified, with other f orms of angina pectoris Atherosclerotic heart disease of [place] coronary artery without angina pectoris Benign hypertension Diabetes mellitus, type 2 GERD (gastroesophageal reflux disease) History of DVT (deep vein thrombosis) History of esophageal stricture History of pulmonary embolism Hyperlipidemia Ischemic cardiomyopathy LBBB (left bundle branch block) Obesity Systolic CHF, chronic Thromboembolic disorder Home Medications calcium carbonate-vitamin D3 1 each PO DAILY 03/08/17 [History Last Taken 05/28/19 17:00] cyanocobalamin (vitamin B-12) 500 mcg PO DAILY@0800 12/07/17 [History Last Taken 05/28/19 12:00] nitroglycerin 0.4 mg sublingual tablet 0.4 mg SL Q5-15M PRN #25 tablet 12/12/19 [Rx Last Taken Unknown] coenzyme Q10 10 mg PO DAILY 06/11/20 [History Last Taken Unknown] folic acid 1 mg PO DAILY 11/10/20 [History Last Taken Unknown] zinc 50 mg tablet 50 mg PO DAILY 11/13/20 [History Last Taken Unknown] aspirin 81 mg tablet,delayed release 81 mg PO DAILY 11/26/20 [History Last Taken Unknown] methocarbamol 500 mg tablet 500 mg PO TID tablet 11/26/20 [History Last Taken Unknown] omeprazole 40 mg capsule,delayed release 40 mg PO DAILY cap 11/26/20 [History Last Taken Unknown] ondansetron 4 mg disintegrating tablet 4 mg PO Q8H PRN tablet 11/26/20 [History Last Taken Unknown] potassium chloride 10 mEq capsule,extended release 10 meq PO DAILY cap 11/26/20 [History Last Taken Unknown] isosorbide mononitrate 60 mg tablet,extended release 24 hr 60 mg PO DAILY #90 tablet 12/02/20 [Rx Last Taken Unknown] metoprolol succinate 25 mg tablet,extended release 24 hr 25 mg PO DAILY #90 tablet 12/02/20 [Rx Last Taken Unknown] warfarin 3 mg tablet See Rx Instructions PO DAILY #96 tablet 12/09/20 [Rx Last Taken Unknown] gabapentin 600 mg tablet 600 mg PO 4X/DAY tab 12/11/20 [History Last Taken Unknown] furosemide 40 mg tablet 60 mg PO DAILY tablet 12/16/20 [History Last Taken Unknown] rosuvastatin 40 mg tablet See Rx Instructions .ROUTE .COMPLEX #90 tablet 12/18/20 [Rx Last Taken Unknown] ranolazine 500 mg tablet,extended release,12 hr 500 mg PO BID #180 tab 12/23/20 [Rx Last Taken Unknown] acetaminophen 325 mg capsule 650 mg PO Q8H PRN cap 01/06/21 [History Last Taken Unknown] diphenhydramine HCl 25 mg capsule 25 mg PO QHS PRN #1 cap 01/06/21 [Rx Last Taken Unknown] lactobacillus combination no.9 4 billion cell capsule 4,000 mmu cells PO DAILY 01/06/21 [History Last Taken Unknown] warfarin 1 mg tablet See Rx Instructions PO DAILY #90 tablet 01/08/21 [Rx Last Taken Unknown] sacubitril 24 mg-valsartan 26 mg tablet 1 tab PO BID #60 tab 01/20/21 [Rx Last Taken Unknown] buprenorphine 1 patch TRANSDERMAL Q7D 01/21/21 [History Last Taken Unknown] ciprofloxacin HCl 500 mg PO BID #14 tablet 01/21/21 [Rx Last Taken Unknown] metronidazole 500 mg PO Q8H #21 tab 01/21/21 [Rx Last Taken Unknown] nitrofurantoin monohyd/m-cryst [Macrobid] 100 mg PO BID 01/21/21 [History Last Taken Unknown] Allergy/AdvReac Type Severity Reaction Status Date / Time doxycycline Allergy Mild Swelling Verified 01/21/21 15:00 Sulfa (Sulfonamide Allergy Rash Verified 01/21/21 15:00 Antibiotics) tetracycline [Tetracycline] Allergy Swelling Verified 01/21/21 15:00 dicyclomine AdvReac Other Verified 01/21/21 15:00 NSAIDS (Non-Steroidal AdvReac Other Verified 01/21/21 15:00 Anti-Inflamma Penicillins AdvReac Unknown Verified 01/21/21 15:00 Family History Mother Myocardial infarction Hypertension Heart disease History of coronary artery bypass graft Brother Hypertension History of coronary artery bypass graft Father Cancer esophageal Surgical History Aortocoronary bypass status (~10/09/02) H/O arthroscopic knee surgery History of partial knee replacement History of total hysterectomy History of tubal ligation Hx of bilateral breast reduction surgery Hx of cholecystectomy Presence of implantable cardioverter-defibrillator (ICD) (10/22/20) Social History Smoking Status: Never smoker alcohol intake: never substance use type: does not use caffeine: Yes Type: carbonated beverages and coffee Number of servings: 3 what type of physical activity do you participate in: other details: cardiac rehab frequency: 3-4 times per week duration: 45-60 minutes/day seatbelt use: always do you feel safe at home: Yes ROS ROS ED Constitutional Constitutional ED: Denies chills or fever(s) Eyes Eyes: Denies blurry vision or change in vision ENT ENT ED: Denies ear pain or sore throat Cardiovascular Cardiovascular: Denies chest pain or palpitations Respiratory/Chest Respiratory/Chest: Denies cough, dyspnea or dyspnea on exertion Gastrointestinal Gastrointestinal: Reports abdominal pain, constipation and nausea Genitourinary Genitourinary ED: Denies dysuria or urinary frequency Musculoskeletal Musculoskeletal: Denies arthralgias or myalgias Integumentary Denies rash Neurologic Neurologic: Denies headache(s) or paresthesias Psychiatric Psychiatric: Denies anxiety or depression Endocrine Endocrinology: Denies polydipsia or polyuria Allergic/Immunologic Allergic/Immunologic ED: Denies urticaria EXAM Physical Exam Const Vital Signs: 01/21/21 15:00 Temperature 96.9 F L Temperature Source Temporal Pulse Rate 99 Respiratory Rate 15 Blood Pressure 130/69 H Blood Pressure Mean 89 Pulse Ox 98 Oxygen Delivery Method Room Air Positive well nourished and well developed General Appearance ED: well developed HEENT Reports normocephalic, head/scalp atraumatic and moist mucous membranes Eyes PERRL and EOMs intact bilaterally Neck no lymphadenopathy and supple General: Negative for tenderness Chest Wall inspection of chest normal Resp normal respiratory effort and clear to auscultation bilaterally Cardio regular rate, regular rhythm and no murmurs GI normal to inspection, nondistended, normoactive bowel sounds Palpation: tender; Negative for guarding or rebound tenderness present Back/Spine no CVA tenderness Cervical Spine: Negative for cervical spine tenderness Thoracic Spine / Upper Back: Negative for thoracic spinal tenderness Extremity normal to inspection General Extremety ED: Negative for tenderness Neuro oriented x3 and CN's II-XII intact bilaterally Neuro Narrative: No focal deficits appreciated. Sensorium / Orientation: alert Psych mental status grossly normal Skin no rashes or lesions noted, no wounds and skin turgor normal MDM MDM MDM Narrative Medical decision making narrative: Patient presents with abdominal pain and sensation of constipation. She does have very minimal tenderness in the left lower quadrant. With history, I did want to rule out dangerous intra-abdominal process. Labs are obtained. She does have leukocytosis but it has been trending down. Kidney function is normal. Patient underwent CT which shows mild diverticulitis. There is no abscess or perforation. I did discuss options with the patient. She wants to attempt outpatient therapy. I do feel that this is reasonable. She is had no fever. Her nausea is controlled. Patient does have multiple drug allergies. She was placed on Cipro and Flagyl. She is on Coumadin I do want her to follow-up on Wednesday for repeat INR. She is comfortable with this plan of care. Impression 1. Diverticulitis Lab Data Attestation: I reviewed the patient's lab results. Labs: Laboratory Results - last 24 hr 01/21/21 01/21/21 15:25 15:25 WBC 15.1 H RBC 3.08 L Hgb 8.9 L Hct 29.5 L MCV 95.8 MCH 28.9 MCHC 30.2 L RDW Std Deviation 77.0 H RDW Coeff of Maty 22.5 H Plt Count 361 Neut % (Auto) Not Reportable Sodium 139 Potassium 3.9 Chloride 104 Carbon Dioxide 27.0 Anion Gap 8 BUN 12 Creatinine 1.11 H Estim Creat Clear Calc 35.16 Est GFR (MDRD) Af Amer 61 Est GFR (MDRD) Non-Af 50 L BUN/Creatinine Ratio 10.8 Glucose 124 H Calcium 9.0 Total Bilirubin 0.60 AST 28 ALT 12 L Alkaline Phosphatase 41 L Total Protein 6.7 Albumin 3.4 Globulin 3.3 Albumin/Globulin Ratio 1.0 Radiography Diagnostic Testing: Radiology Impression Abdomen/Pelvis CT 01/21/21 15:10 IMPRESSION: Mild acute sigmoid diverticulitis. No pelvic abscess or evidence of perforation. Individualized dose optimization techniques were used for this CT. at 1637 Reported and signed by: Benjamin Heard MD Electronically Signed: Benjamin Heard MD at 16:35 EDT Tel , Service support , Discharge Plan Triage Chief Complaint: Abd Pain ED Provider: Kyrie Jacobs Dx/Rx/DC Orders Instructions: ED Diverticulitis Prescriptions: New metronidazole [metronidazole] 500 MG tablet 500 mg PO Q8H Qty: 21 RF: 0 ciprofloxacin HCl [ciprofloxacin HCl] 500 MG tablet 500 mg PO BID Qty: 14 RF: 0 No Action aspirin [Adult Low Dose Aspirin] 81 mg tablet,delayed release (DR/EC) 81 mg PO DAILY RF: 0 omeprazole 40 mg capsule,delayed release(DR/EC) 40 mg PO DAILY RF: 0 potassium chloride 10 mEq capsule, extended release 10 meq PO DAILY RF: 0 calcium carbonate-vitamin D3 1 EACH tablet 1 each PO DAILY RF: 0 gabapentin 600 mg tablet 600 mg PO 4X/DAY RF: 0 cyanocobalamin (vitamin B-12) 500 MCG tablet 500 mcg PO DAILY@0800 RF: 0 methocarbamol 500 mg tablet 500 mg PO TID RF: 0 coenzyme Q10 10 MG capsule 10 mg PO DAILY RF: 0 folic acid 1 MG tablet 1 mg PO DAILY RF: 0 ondansetron 4 mg tablet,disintegrating 4 mg PO Q8H PRN (Reason: Nausea) RF: 0 buprenorphine 15 mcg/hour Patch Weekly 1 patch TRANSDERMAL Q7D RF: 0 nitrofurantoin monohyd/m-cryst [Macrobid] 100 mg Capsule 100 mg PO BID RF: 0 nitroglycerin 0.4 mg tablet, sublingual 0.4 mg SL Q5-15M PRN (Reason: chest pain) Qty: 25 RF: 1 zinc 50 mg tablet 50 mg PO DAILY RF: 0 isosorbide mononitrate 60 mg tablet extended release 24 hr 60 mg PO DAILY Qty: 90 RF: 3 metoprolol succinate 25 mg tablet extended release 24 hr 25 mg PO DAILY Qty: 90 RF: 3 warfarin 3 mg tablet See Rx Instructions mg PO DAILY Qty: 96 RF: 3 furosemide 40 mg tablet 60 mg PO DAILY RF: 0 rosuvastatin 40 mg tablet See Rx Instructions .ROUTE .COMPLEX Qty: 90 RF: 3 ranolazine 500 mg tablet extended release 12 hr 500 mg PO BID Qty: 180 RF: 3 Hold Instructions: Per [facility] discharge diphenhydramine HCl [Benadryl] 25 mg capsule 25 mg PO QHS PRN (Reason: sleep) Qty: 1 RF: 0 acetaminophen 325 mg capsule 650 mg PO Q8H PRN (Reason: Pain) RF: 0 Adult 50 Plus Probiotic 4 billion cell capsule 4,000 mmu cells PO DAILY RF: 0 warfarin 1 mg tablet See Rx Instructions mg PO DAILY Qty: 90 RF: 3 sacubitril-valsartan 24-26 mg tablet 1 tab PO BID Qty: 60 RF: 11 Primary Care Provider: Osiel Arzola Referrals: Osiel Arzola MD [Primary Care Provider] -
[2021-01-21] MEDS: Ondansetron 4 MG/2 ML Vial IV (15:27)
[2021-01-21] MEDS: Morphine 4 MG/ML Syringe IV (15:27)
[2021-01-21] MEDS: 0.9% Normal Saline 1,000 ML 125 ML IV (15:28)
[2021-01-21 16:00] LABS: AST(SGOT) 28 U/L (15-37); Alanine Aminotransfer ALT/SGPT 12 U/L (13-56); Albumin, Serum 3.4 g/dL (3.2-5.0); Alkaline Phosphatase 41 U/L (45-117); Anion Gap 8 (5-15); BUN 12 mg/dL (7-18); BUN/Creat Ratio 10.8 RATIO (10-20); Chloride 104 mmol/L (98-107); Creatinine, Serum 1.11 mg/dL (0.55-1.02); EST Glomerular Filtration Rate 50 mL/min (>60); Est Glom Filt Rate - Afr Amer 61 mL/min (>60); Estimated Creatinine Clearance 35.16 ml/min; Globulin 3.3 g/dL (2.2-4.2); Glucose 124 mg/dL (74-106); Potassium 3.9 mmol/L (3.5-5.1); Protein, Total 6.7 g/dL (6.4-8.2); Sodium Level 139 mmol/L (136-145)
[2021-01-21 16:02] LABS: Hematocrit 29.5 % (37-47); Hemoglobin 8.9 g/dL (12.0-15.0); Mean Corp Hgb Conc 30.2 g/dL (32-36); Mean Corpuscular Hgb 28.9 pg (27.0-32.0); Mean Corpuscular Volume 95.8 fL (81-99); POSITIVE COUNT YES; POSITIVE MORPHOLOGY YES; Platelet Count 361 K/mm3 (150-450); RBC Distribution Width CV 22.5 % (11.6-14.6); Red Blood Count 3.08 M/mm3 (4.2-5.4); White Blood Count 15.1 K/mm3 (4.4-11.0)
[2021-01-21 16:03] LABS: Differential Indicated MANUAL DIFF
[2021-01-21 16:48] LABS: Bacteria 0 SEEN /hpf (None Seen); Color, Urine Yellow (Yellow); Glucose, Dipstick Normal (Normal); Ketone-Dipstick Negative (Negative); Leukocyte Esterase-Dipstick Negative /ul (Negative); Mucous, Urine 0 SEEN /hpf (<or=2+); Nitrite-Dipstick Negative (Negative); Occult Blood-Urine Negative /ul (Negative); Protein-Dipstick Negative (Negative); Red Blood Cells-Urine 0 SEEN /hpf (0-5); Specific Gravity, Urine 1.005 (1.002-1.030); Urine Bilirubin Dipstick Negative (Negative); Urine Clarity Clear (Clear); Urine Urobilinogen Normal (Normal); Urine pH 6.5 (5.0 - 8.0); White Blood Cells 0 SEEN /hpf (0-5)
[2021-01-21 16:53] LABS: Blast 5 % (0-0); Eosinophil 1 % (0-5); Lymphocyte 50 % (19-41); Metamyelocyte 4 % (0-1); Monocyte 11 % (0-10); Myelocyte 1 % (0-0); Neutrophil-Band 5 % (0-5); Neutrophil-Segmented 23 % (47-70); Nucleated Red Bld Cells,Manual 2 % (0-5); Platelet Estimate ADEQUATE (ADEQ); Total Cells Counted 100 (MANUAL DIFF)
[2021-01-21 16:54] LABS: Anisocytosis 1+; Hypochromasia 1+; Stomatocyte 1+
[2021-01-21 16:56] LABS: Squamous Epithelial Cells - UA 0-5 SEEN /hpf (5-10)
[2021-01-21 16:57] LABS: Absolute Lymphocyte Count 7.54 X10^3/uL (0.83-4.51); Absolute Neutrophil Count 4.2 X10^3/uL (2.0-7.7)
[2021-01-21 18:02] VITALS: BP 145/87; PULSE 89; RESP 16; O2SAT 98
[2021-01-22 13:16] LABS: Pathologist Review Reviewed
== END 2021-01-21 18:03 | disposition home or self-care (01) ==
LOC: ED 15:39
PROVIDERS: Emergency Provider Emergency Medicine; PCP Family Medicine
DX: K57.32 Diverticulitis of large intestine without perforation or abscess without bleeding (principal); Z79.01 Long term (current) use of anticoagulants; E11.22 Type 2 diabetes mellitus with diabetic chronic kidney disease; E78.5 Hyperlipidemia, unspecified; I13.0 Hypertensive heart and chronic kidney disease with heart failure and stage 1 through stage 4 chronic kidney disease, or unspecified chronic kidney disease; I25.10 Atherosclerotic heart disease of native coronary artery without angina pectoris; I25.5 Ischemic cardiomyopathy; I44.7 Left bundle-branch block, unspecified; K21.9 Gastro-esophageal reflux disease without esophagitis; K59.00 Constipation, unspecified; Z79.1 Long term (current) use of non-steroidal anti-inflammatories (NSAID); Z79.82 Long term (current) use of aspirin; Z86.711 Personal history of pulmonary embolism; Z86.718 Personal history of other venous thrombosis and embolism; Z90.49 Acquired absence of other specified parts of digestive tract
CPT/HCPCS: 74177; 80053; 81001; 85025; 85610; 96361; 96374; 96375; 99283; 99284; J7030; Q9967; J2405

== ENCOUNTER 2021-01-21 19:42 | Emergency (ER) | payer MEDICARE, SELFPAY ==
[2021-01-21 15:00] VITALS: BMI 32.5
[2021-01-21 19:44] VITALS: BP 128/61; PULSE 96; RESP 16; TEMP 37; O2SAT 99; BMI 34.2
--- NOTE | 2021-01-21 23:25 | EX.ED.DYSGE1 ---
HPI History of Present Illness Chief Complaint: Wound Informant: patient, family and EMS Narrative Narrative: 80-year-old female was just assessed in the emergency room for diverticulitis. During which time she had a left antecubital fossa IV placed. When they got home the patient began to bleed. She is on Coumadin therapy. They are unable to get the bleeding to stop so EMS was called. [facility] Medical History Abnormal stress test Atherosclerosis of coronary artery bypass graft(s), unspecified, with other forms of angina pectoris Atherosclerotic heart disease of [place] coronary artery without angina pectoris Benign hypertension Diabetes mellitus, type 2 Diverticulitis GERD (gastroesophageal reflux disease) History of DVT (deep vein thrombosis) History of esophageal stricture History of pulmonary embolism Hyperlipidemia Ischemic cardiomyopathy LBBB (left bundle branch block) Obesity Systolic CHF, chronic Thromboembolic disorder Home Medications calcium carbonate-vitamin D3 1 each PO DAILY 03/08/17 [History Last Taken 05/28/19 17:00] cyanocobalamin (vitamin B-12) 500 mcg PO DAILY@0800 12/07/17 [History Last Taken 05/28/19 12:00] nitroglycerin 0.4 mg sublingual tablet 0.4 mg SL Q5-15M PRN #25 tablet 12/12/19 [Rx Last Taken Unknown] coenzyme Q10 10 mg PO DAILY 06/11/20 [History Last Taken Unknown] folic acid 1 mg PO DAILY 11/10/20 [History Last Taken Unknown] zinc 50 mg tablet 50 mg PO DAILY 11/13/20 [History Last Taken Unknown] aspirin 81 mg tablet,delayed release 81 mg PO DAILY 11/26/20 [History Last Taken Unknown] methocarbamol 500 mg tablet 500 mg PO TID tablet 11/26/20 [History Last Taken Unknown] omeprazole 40 mg capsule,delayed release 40 mg PO DAILY cap 11/26/20 [History Last Taken Unknown] ondansetron 4 mg disintegrating tablet 4 mg PO Q8H PRN tablet 11/26/20 [History Last Taken Unknown] potassium chloride 10 mEq capsule,extended release 10 meq PO DAILY cap 11/26/20 [History Last Taken Unknown] isosorbide mononitrate 60 mg tablet,extended release 24 hr 60 mg PO DAILY #90 tablet 12/02/20 [Rx Last Taken Unknown] metoprolol succinate 25 mg tablet,extended release 24 hr 25 mg PO DAILY #90 tablet 12/02/20 [Rx Last Taken Unknown] warfarin 3 mg tablet See Rx Instructions PO DAILY #96 tablet 12/09/20 [Rx Last Taken Unknown] gabapentin 600 mg tablet 600 mg PO 4X/DAY tab 12/11/20 [History Last Taken Unknown] furosemide 40 mg tablet 60 mg PO DAILY tablet 12/16/20 [History Last Taken Unknown] rosuvastatin 40 mg tablet See Rx Instructions .ROUTE .COMPLEX #90 tablet 12/18/20 [Rx Last Taken Unknown] ranolazine 500 mg tablet,extended release,12 hr 500 mg PO BID #180 tab 12/23/20 [Rx Last Taken Unknown] acetaminophen 325 mg capsule 650 mg PO Q8H PRN cap 01/06/21 [History Last Taken Unknown] diphenhydramine HCl 25 mg capsule 25 mg PO QHS PRN #1 cap 01/06/21 [Rx Last Taken Unknown] lactobacillus combination no.9 4 billion cell capsule 4,000 mmu cells PO DAILY 01/06/21 [History Last Taken Unknown] warfarin 1 mg tablet See Rx Instructions PO DAILY #90 tablet 01/08/21 [Rx Last Taken Unknown] sacubitril 24 mg-valsartan 26 mg tablet 1 tab PO BID #60 tab 01/20/21 [Rx Last Taken Unknown] buprenorphine 1 patch TRANSDERMAL Q7D 01/21/21 [History Last Taken Unknown] ciprofloxacin HCl 500 mg PO BID #14 tablet 01/21/21 [Rx Last Taken Unknown] hydrocodone-acetaminophen 1 tab PO Q6H PRN PRN 3 Days #12 tablet 01/21/21 [Rx Last Taken Unknown] metronidazole 500 mg PO Q8H #21 tab 01/21/21 [Rx Last Taken Unknown] nitrofurantoin monohyd/m-cryst [Macrobid] 100 mg PO BID 01/21/21 [History Last Taken Unknown] Allergy/AdvReac Type Severity Reaction Status Date / Time doxycycline Allergy Mild Swelling Verified 01/21/21 19:44 Sulfa (Sulfonamide Allergy Rash Verified 01/21/21 19:44 Antibiotics) tetracycline [Tetracycline] Allergy Swelling Verified 01/21/21 19:44 dicyclomine AdvReac Other Verified 01/21/21 19:44 NSAIDS (Non-Steroidal AdvReac Other Verified 01/21/21 19:44 Anti-Inflamma Penicillins AdvReac Unknown Verified 01/21/21 19:44 Family History Mother Myocardial infarction Hypertension Heart disease History of coronary artery bypass graft Brother Hypertension History of coronary artery bypass graft Father Cancer esophageal Surgical History Aortocoronary bypass status (~10/09/02) H/O arthroscopic knee surgery History of partial knee replacement History of total hysterectomy History of tubal ligation Hx of bilateral breast reduction surgery Hx of cholecystectomy Presence of implantable cardioverter-defibrillator (ICD) (10/22/20) Social History Smoking Status: Never smoker alcohol intake: never substance use type: does not use caffeine: Yes Type: carbonated beverages and coffee Number of servings: 3 what type of physical activity do you participate in: other details: cardiac rehab frequency: 3-4 times per week duration: 45-60 minutes/day seatbelt use: always do you feel safe at home: Yes ROS ROS ED Constitutional Constitutional ED: Denies chills or weight loss Eyes Eyes: Denies change in vision or diplopia ENT ENT ED: Denies ear pain, rhinorrhea or sore throat Cardiovascular Cardiovascular: Denies chest pain, orthopnea, palpitations or racing heartbeat Respiratory/Chest Respiratory/Chest: Denies cough, dyspnea or orthopnea Gastrointestinal Gastrointestinal: Reports abdominal pain; Denies diarrhea, nausea or vomiting Genitourinary Genitourinary ED: Denies dysuria, hematuria or urinary frequency Musculoskeletal Musculoskeletal: Denies arthralgias or myalgias Integumentary Reports other Details: See history of present illness ; Denies abscess or rash Neurologic Neurologic: Denies headache(s) or weakness Psychiatric Psychiatric: Denies anxiety, depression, suicidal ideation or suicidal thoughts Endocrine Endocrinology: Denies polydipsia, polyphagia or polyuria Allergic/Immunologic Allergic/Immunologic ED: Denies mouth swelling, tongue swelling or urticaria EXAM Physical Exam Const Vital Signs: 01/21/21 19:44 Temperature 98.6 F Temperature Source Temporal Pulse Rate 96 Respiratory Rate 16 Blood Pressure 128/61 H Blood Pressure Mean 83 Pulse Ox 99 Oxygen Delivery Method Room Air Positive well nourished and well developed General Appearance ED: well developed HEENT Reports normocephalic, head/scalp atraumatic and moist mucous membranes Eyes PERRL and EOMs intact bilaterally Neck no lymphadenopathy, supple and no JVD Resp normal respiratory effort and clear to auscultation bilaterally Cardio regular rate, regular rhythm and no murmurs GI normal to inspection, nondistended, normoactive bowel sounds and non-tender Palpation: soft Back/Spine no CVA tenderness and normal ROM Extremity Extremity Narrative: The left antecubital fossa IV site is bleeding. It is dark red nonpulsatile blood. There is an obvious cutaneous defect. General Extremety ED: Negative for edema General Extremity: Negative for edema Neuro oriented x3 and CN's II-XII intact bilaterally Sensorium / Orientation: alert Motor Exam: strength 5/5 throughout Psych mental status grossly normal Mood & Affect: Negative for depressed or tearful Skin no rashes or lesions noted and no wounds MDM MDM MDM Narrative Medical decision making narrative: Patient chooses to leave AMA and cannot communicate this. The patient understands risk benefits and alternatives. Explain her reasoning and states it is consistent with her values. Patient does not have a surrogate. Small piece of [place] was placed over the hole followed by gauze followed by Coban tightly wrapped. Care was to ensure the distal circulation was not compromised. Patient was then asked to flex her elbow and remain with it elevated. After a period of observation no further bleeding was seen. The dressing was taken down leaving care to leave the Gelfoam in place. Then coban was placed over the top of this with some 4 x 4's. Patient's family and her were asked to leave dressing in place until tomorrow afternoon when her home health care nurse comes to see her. Discharge Plan Triage Chief Complaint: Wound ED Provider: Torrey Skaggs Dx/Rx/DC Orders Clinical Impression: Complication of intravenous catheter site, Warfarin-induced coagulopathy Prescriptions: No Action aspirin [Adult Low Dose Aspirin] 81 mg tablet,delayed release (DR/EC) 81 mg PO DAILY RF: 0 omeprazole 40 mg capsule,delayed release(DR/EC) 40 mg PO DAILY RF: 0 potassium chloride 10 mEq capsule, extended release 10 meq PO DAILY RF: 0 calcium carbonate-vitamin D3 1 EACH tablet 1 each PO DAILY RF: 0 gabapentin 600 mg tablet 600 mg PO 4X/DAY RF: 0 cyanocobalamin (vitamin B-12) 500 MCG tablet 500 mcg PO DAILY@0800 RF: 0 methocarbamol 500 mg tablet 500 mg PO TID RF: 0 coenzyme Q10 10 MG capsule 10 mg PO DAILY RF: 0 folic acid 1 MG tablet 1 mg PO DAILY RF: 0 ondansetron 4 mg tablet,disintegrating 4 mg PO Q8H PRN (Reason: Nausea) RF: 0 buprenorphine 15 mcg/hour Patch Weekly 1 patch TRANSDERMAL Q7D RF: 0 nitrofurantoin monohyd/m-cryst [Macrobid] 100 mg Capsule 100 mg PO BID RF: 0 metronidazole [metronidazole] 500 MG tablet 500 mg PO Q8H Qty: 21 RF: 0 ciprofloxacin HCl [ciprofloxacin HCl] 500 MG tablet 500 mg PO BID Qty: 14 RF: 0 hydrocodone-acetaminophen [hydrocodone-acetaminophen] 1 TABLET tablet 1 tab PO Q6H PRN PRN (Reason: Pain) 3 Days Qty: 12 RF: 0 nitroglycerin 0.4 mg tablet, sublingual 0.4 mg SL Q5-15M PRN (Reason: chest pain) Qty: 25 RF: 1 zinc 50 mg tablet 50 mg PO DAILY RF: 0 isosorbide mononitrate 60 mg tablet extended release 24 hr 60 mg PO DAILY Qty: 90 RF: 3 metoprolol succinate 25 mg tablet extended release 24 hr 25 mg PO DAILY Qty: 90 RF: 3 warfarin 3 mg tablet See Rx Instructions mg PO DAILY Qty: 96 RF: 3 furosemide 40 mg tablet 60 mg PO DAILY RF: 0 rosuvastatin 40 mg tablet See Rx Instructions .ROUTE .COMPLEX Qty: 90 RF: 3 ranolazine 500 mg tablet extended release 12 hr 500 mg PO BID Qty: 180 RF: 3 Hold Instructions: Per [facility] discharge diphenhydramine HCl [Benadryl] 25 mg capsule 25 mg PO QHS PRN (Reason: sleep) Qty: 1 RF: 0 acetaminophen 325 mg capsule 650 mg PO Q8H PRN (Reason: Pain) RF: 0 Adult 50 Plus Probiotic 4 billion cell capsule 4,000 mmu cells PO DAILY RF: 0 warfarin 1 mg tablet See Rx Instructions mg PO DAILY Qty: 90 RF: 3 sacubitril-valsartan 24-26 mg tablet 1 tab PO BID Qty: 60 RF: 11 Primary Care Provider: Osiel Arzola Referrals: Osiel Arzola MD [Primary Care Provider] - As Needed Activity Restrictions/Additional Instructions: Please leave dressing in place until your home nurse comes tomorrow. Disposition Disposition: Home, self care Discharge Date/Time: 01/21/21 22:09
== END 2021-01-21 22:09 | disposition home or self-care (01) ==
PROVIDERS: Emergency Provider Emergency Medicine; PCP Family Medicine
DX: T82.898A Other specified complication of vascular prosthetic devices, implants and grafts, initial encounter (principal); T45.515A Adverse effect of anticoagulants, initial encounter; I25.10 Atherosclerotic heart disease of native coronary artery without angina pectoris; E11.9 Type 2 diabetes mellitus without complications; E78.5 Hyperlipidemia, unspecified; I25.5 Ischemic cardiomyopathy; K21.9 Gastro-esophageal reflux disease without esophagitis; Z79.01 Long term (current) use of anticoagulants; Z79.1 Long term (current) use of non-steroidal anti-inflammatories (NSAID); Z79.82 Long term (current) use of aspirin; Z86.711 Personal history of pulmonary embolism; Z86.718 Personal history of other venous thrombosis and embolism
CPT/HCPCS: 99284

== ENCOUNTER → 2021-01-24 08:50 | Outpatient (CLI) | payer MEDICARE, SELFPAY ==
[2021-01-21 19:44] VITALS: BMI 34.2
[2021-01-24 10:49] LABS: International Normalized Ratio 2.8; Prothrombin Time (Protime)PT. 28.7 SECONDS (11.7-14.9)
[2021-01-24 11:10] LABS: AST(SGOT) 26 U/L (15-37); Alanine Aminotransfer ALT/SGPT 12 U/L (13-56); Albumin, Serum 3.4 g/dL (3.2-5.0); Alkaline Phosphatase 35 U/L (45-117); Cholesterol 118 mg/dL (200); Globulin 2.9 g/dL (2.2-4.2); High Density Lipoprotein 50 mg/dL; Protein, Total 6.3 g/dL (6.4-8.2); Triglycerides 126 mg/dL; Very Low Density Lipoprotein 25 mg/dL (5-40)
== END ==
PROVIDERS: Nurse Practitioner Family; PCP Family Medicine; Referring Provider Internal Medicine Cardiovascular Disease; Visit Provider Internal Medicine Cardiovascular Disease
DX: E78.00 Pure hypercholesterolemia, unspecified (principal); I25.10 Atherosclerotic heart disease of native coronary artery without angina pectoris; I74.9 Embolism and thrombosis of unspecified artery; Z79.01 Long term (current) use of anticoagulants
CPT/HCPCS: 36415; 80061; 80076; 85610

== ENCOUNTER → 2021-01-30 08:54 | Outpatient (CLI) | payer MEDICARE, SELFPAY ==
[2021-01-21 19:44] VITALS: BMI 34.2
[2021-01-30 11:11] LABS: International Normalized Ratio 2.7; Prothrombin Time (Protime)PT. 27.5 SECONDS (11.7-14.9)
== END ==
PROVIDERS: PCP Family Medicine; Referring Provider Internal Medicine Cardiovascular Disease; Visit Provider Internal Medicine Cardiovascular Disease
DX: I74.9 Embolism and thrombosis of unspecified artery (principal); I25.10 Atherosclerotic heart disease of native coronary artery without angina pectoris; Z79.01 Long term (current) use of anticoagulants
CPT/HCPCS: 36415; 85610

== ENCOUNTER → 2021-02-06 09:24 | Outpatient (CLI) | payer MEDICARE, SELFPAY ==
[2021-01-21 19:44] VITALS: BMI 34.2
[2021-02-06 10:55] LABS: International Normalized Ratio 2.5; Prothrombin Time (Protime)PT. 25.9 SECONDS (11.7-14.9)
== END ==
PROVIDERS: PCP Family Medicine; Referring Provider Internal Medicine Cardiovascular Disease; Visit Provider Internal Medicine Cardiovascular Disease
DX: I74.9 Embolism and thrombosis of unspecified artery (principal); I25.10 Atherosclerotic heart disease of native coronary artery without angina pectoris; Z79.01 Long term (current) use of anticoagulants
CPT/HCPCS: 36415; 85610

== ENCOUNTER → 2021-02-12 12:32 | Outpatient (CLI) | payer MEDICARE, SELFPAY ==
[2021-01-21 19:44] VITALS: BMI 34.2
[2021-02-12 13:07] LABS: Color, Urine Yellow (Yellow); Glucose, Dipstick Normal (Normal); Ketone-Dipstick Negative (Negative); Leukocyte Esterase-Dipstick 500 /ul (Negative); Nitrite-Dipstick Negative (Negative); Occult Blood-Urine 10 /ul (Negative); Protein-Dipstick Negative (Negative); Urine Bilirubin Dipstick Negative (Negative); Urine Clarity Cloudy (Clear); Urine Urobilinogen Normal (Normal); Urine pH 6.5 (5.0 - 8.0)
== END ==
PROVIDERS: PCP Family Medicine; Visit Provider Family Medicine
DX: R82.90 Unspecified abnormal findings in urine (principal)
CPT/HCPCS: 81002; 87086; 87088; 87186

== ENCOUNTER → 2021-02-13 09:30 | Outpatient (CLI) | payer MEDICARE, SELFPAY ==
[2021-01-21 19:44] VITALS: BMI 34.2
[2021-02-13 11:25] LABS: International Normalized Ratio 1.9; Prothrombin Time (Protime)PT. 21.3 SECONDS (11.7-14.9)
== END ==
PROVIDERS: PCP Family Medicine; Referring Provider Internal Medicine Cardiovascular Disease; Visit Provider Internal Medicine Cardiovascular Disease
DX: I74.9 Embolism and thrombosis of unspecified artery (principal); I25.10 Atherosclerotic heart disease of native coronary artery without angina pectoris; Z79.01 Long term (current) use of anticoagulants
CPT/HCPCS: 36415; 85610

== ENCOUNTER → 2021-02-20 09:25 | Outpatient (CLI) | payer MEDICARE, SELFPAY ==
[2021-01-21 19:44] VITALS: BMI 34.2
[2021-02-20 11:29] LABS: International Normalized Ratio 1.7; Prothrombin Time (Protime)PT. 19.1 SECONDS (11.7-14.9)
== END ==
PROVIDERS: PCP Family Medicine; Referring Provider Internal Medicine Cardiovascular Disease; Visit Provider Internal Medicine Cardiovascular Disease
DX: I74.9 Embolism and thrombosis of unspecified artery (principal); Z79.01 Long term (current) use of anticoagulants; I25.10 Atherosclerotic heart disease of native coronary artery without angina pectoris
CPT/HCPCS: 36415; 85610

== ENCOUNTER → 2021-02-27 04:39 | Outpatient (CLI) | payer MEDICARE, SELFPAY ==
[2021-02-27 11:24] LABS: International Normalized Ratio 2.2; Prothrombin Time (Protime)PT. 23.6 SECONDS (11.7-14.9)
== END ==
PROVIDERS: PCP Family Medicine; Referring Provider Internal Medicine Cardiovascular Disease; Visit Provider Internal Medicine Cardiovascular Disease
DX: I74.9 Embolism and thrombosis of unspecified artery (principal); I25.10 Atherosclerotic heart disease of native coronary artery without angina pectoris; Z79.01 Long term (current) use of anticoagulants
CPT/HCPCS: 36415; 85610

== ENCOUNTER → 2021-03-13 07:44 | Outpatient (CLI) | payer MEDICARE, SELFPAY ==
[2021-03-13 10:52] LABS: Hematocrit 27.9 % (37-47); Hemoglobin 8.2 g/dL (12.0-15.0); Mean Corp Hgb Conc 29.4 g/dL (32-36); Mean Corpuscular Hgb 29.1 pg (27.0-32.0); Mean Corpuscular Volume 98.9 fL (81-99); POSITIVE COUNT YES; POSITIVE MORPHOLOGY YES; Platelet Count 132 K/mm3 (150-450); RBC Distribution Width CV 20.4 % (11.6-14.6); RBC Distribution Width SD 74.3 fl (35.1-43.9); Red Blood Count 2.82 M/mm3 (4.2-5.4); White Blood Count 6.1 K/mm3 (4.4-11.0)
[2021-03-13 10:56] LABS: Differential Indicated MANUAL DIFF
[2021-03-13 11:10] LABS: Anion Gap 7 (5-15); BUN 18 mg/dL (7-18); BUN/Creat Ratio 12.9 RATIO (10-20); Calcium,Total 8.5 mg/dL (8.5-10.1); Chloride 104 mmol/L (98-107); EST Glomerular Filtration Rate 38 mL/min (>60); Est Glom Filt Rate - Afr Amer 46 mL/min (>60); Glucose 96 mg/dL (74-106); International Normalized Ratio 2.4; Iron 45 ug/dL (50-170); Iron Binding Capacity,Total 250 ug/dL (250-450); Potassium 3.7 mmol/L (3.5-5.1); Sodium Level 137 mmol/L (136-145)
[2021-03-13 11:34] LABS: Blast 4 % (0-0); Eosinophil 1 % (0-5); Lymphocyte 43 % (19-41); Metamyelocyte 13 % (0-1); Monocyte 14 % (0-10); Myelocyte 5 % (0-0); Neutrophil-Segmented 20 % (47-70); Total Cells Counted 100 (MANUAL DIFF)
[2021-03-13 11:35] LABS: Anisocytosis 1+; Platelet Estimate SLT DEC (ADEQ); Red Cell Morphology N CHROM NORMAL (NORM C&C)
[2021-03-13 11:36] LABS: Absolute Neutrophil Count 1.2 X10^3/uL (2.0-7.7); Neutrophil # 1.22 X10^3/uL (2.7-7.7)
[2021-03-14 14:08] LABS: Pathologist Review Reviewed
== END ==
PROVIDERS: PCP Family Medicine; Visit Provider Internal Medicine Cardiovascular Disease
DX: I74.9 Embolism and thrombosis of unspecified artery (principal); I25.10 Atherosclerotic heart disease of native coronary artery without angina pectoris; Z79.01 Long term (current) use of anticoagulants; D64.9 Anemia, unspecified; N28.9 Disorder of kidney and ureter, unspecified
CPT/HCPCS: 36415; 80048; 83540; 83550; 85025; 85610

== ENCOUNTER → 2021-03-26 08:15 | Outpatient (CLI) | payer MEDICARE, SELFPAY ==
[2021-03-26 11:35] LABS: International Normalized Ratio 3.4; Prothrombin Time (Protime)PT. 33.3 SECONDS (11.7-14.9)
[2021-03-26 11:52] LABS: Anion Gap 7 (5-15); BUN 22 mg/dL (7-18); BUN/Creat Ratio 14.4 RATIO (10-20); Calcium,Total 8.5 mg/dL (8.5-10.1); Chloride 105 mmol/L (98-107); Creatinine, Serum 1.53 mg/dL (0.55-1.02); EST Glomerular Filtration Rate 35 mL/min (>60); Est Glom Filt Rate - Afr Amer 42 mL/min (>60); Glucose 89 mg/dL (74-106); Potassium 4.3 mmol/L (3.5-5.1); Sodium Level 139 mmol/L (136-145)
== END ==
PROVIDERS: Nurse Practitioner Gerontology; PCP Family Medicine; Visit Provider Internal Medicine Cardiovascular Disease
DX: I74.9 Embolism and thrombosis of unspecified artery (principal); I25.10 Atherosclerotic heart disease of native coronary artery without angina pectoris; Z79.01 Long term (current) use of anticoagulants
CPT/HCPCS: 36415; 80048; 85610

== ENCOUNTER → 2021-04-02 08:59 | Outpatient (CLI) | payer MEDICARE, SELFPAY ==
[2021-04-02 10:36] LABS: International Normalized Ratio 3.2; Prothrombin Time (Protime)PT. 32.1 SECONDS (11.7-14.9)
== END ==
PROVIDERS: PCP Family Medicine; Referring Provider Internal Medicine Cardiovascular Disease; Visit Provider Internal Medicine Cardiovascular Disease
DX: I74.9 Embolism and thrombosis of unspecified artery (principal); I25.10 Atherosclerotic heart disease of native coronary artery without angina pectoris; Z79.01 Long term (current) use of anticoagulants
CPT/HCPCS: 36415; 85610

== ENCOUNTER → 2021-04-10 08:56 | Outpatient (CLI) | payer MEDICARE, SELFPAY ==
[2021-04-10 11:15] LABS: International Normalized Ratio 2.6; Prothrombin Time (Protime)PT. 27.2 SECONDS (11.7-14.9)
== END ==
PROVIDERS: PCP Family Medicine; Visit Provider Internal Medicine Cardiovascular Disease
DX: I74.9 Embolism and thrombosis of unspecified artery (principal); Z79.01 Long term (current) use of anticoagulants; I25.10 Atherosclerotic heart disease of native coronary artery without angina pectoris
CPT/HCPCS: 36415; 85610

== ENCOUNTER → 2021-04-11 17:28 | Outpatient (CLI) | payer MEDICARE, SELFPAY | PROVIDERS: PCP Family Medicine; Visit Provider Family Medicine | DX: Z51.89 Encounter for other specified aftercare (principal); D46.9 Myelodysplastic syndrome, unspecified | CPT/HCPCS: 86850; 86900; 86901; 86920; 86922 ==

== ENCOUNTER → 2021-04-14 12:27 | Outpatient (CLI) | payer MEDICARE, SELFPAY ==
[2021-04-14 12:40] VITALS: BP 94/55; PULSE 88; RESP 16; TEMP 36.5; O2SAT 100
[2021-04-14] MEDS: Acetaminophen 325 MG Tablet 650 MG PO (12:42)
[2021-04-14 13:34] VITALS: BP 104/54; PULSE 81; RESP 14; TEMP 36.9; O2SAT 98
[2021-04-14 14:38] VITALS: BP 97/49; PULSE 83; RESP 16; TEMP 36.8; O2SAT 100
[2021-04-14 15:36] VITALS: BP 103/53; RESP 16; TEMP 36.4
--- NOTE | 2021-04-14 15:48 | NURSING ---
spoke to Dr. Warner. BP 105/53. Telephone order to hold lasix but have patient take her normal afternoon dose.
== END ==
PROVIDERS: PCP Family Medicine; Referring Provider Internal Medicine Hematology & Oncology; Visit Provider Internal Medicine Hematology & Oncology
DX: Z51.89 Encounter for other specified aftercare (principal); D46.9 Myelodysplastic syndrome, unspecified
CPT/HCPCS: 36430; 86850; 86900; 86901; 86920; 86922; J7040; P9040; A4216

== ENCOUNTER → 2021-04-18 09:50 | Outpatient (CLI) | payer MEDICARE, SELFPAY ==
[2021-04-18 12:52] LABS: Anion Gap 7 (5-15); BUN 14 mg/dL (7-18); BUN/Creat Ratio 10.9 RATIO (10-20); Calcium,Total 8.6 mg/dL (8.5-10.1); Chloride 104 mmol/L (98-107); Creatinine, Serum 1.29 mg/dL (0.55-1.02); EST Glomerular Filtration Rate 42 mL/min (>60); Est Glom Filt Rate - Afr Amer 51 mL/min (>60); Glucose 125 mg/dL (74-106); Potassium 3.9 mmol/L (3.5-5.1); Sodium Level 138 mmol/L (136-145)
== END ==
PROVIDERS: Referring Provider Physician Assistant Medical; Visit Provider Physician Assistant Medical
DX: I25.10 Atherosclerotic heart disease of native coronary artery without angina pectoris (principal); I25.708 Atherosclerosis of coronary artery bypass graft(s), unspecified, with other forms of angina pectoris; R63.4 Abnormal weight loss
CPT/HCPCS: 36415; 80048

== ENCOUNTER → 2021-04-23 04:54 | Outpatient (CLI) | payer MEDICARE, SELFPAY ==
[2021-04-23 11:57] LABS: International Normalized Ratio 2.8
== END ==
PROVIDERS: Referring Provider Internal Medicine Cardiovascular Disease; Visit Provider Internal Medicine Cardiovascular Disease
DX: I74.9 Embolism and thrombosis of unspecified artery (principal); Z79.01 Long term (current) use of anticoagulants; I25.10 Atherosclerotic heart disease of native coronary artery without angina pectoris
CPT/HCPCS: 36415; 85610

== ENCOUNTER 2021-05-03 15:35 | Emergency (ER) | payer MEDICARE, SELFPAY ==
[2021-05-03 15:36] VITALS: BP 125/77; PULSE 98; RESP 16; TEMP 36.3; O2SAT 96; BMI 30.7
--- NOTE | 2021-05-03 16:40 | EDS_ITS ---
HPI History of Present Illness Chief Complaint: Allergic Reaction Detail of Chief Complaint: Not feeling well and concern for stroke Informant: patient Narrative Narrative: Patient presents to the emergency department stating that she started not feeling well last evening. Patient describes some blurred vision and some numbness and tingling to her lips and her tongue. Patient states that she feels weak and feels like he is having hard time walking and feels somewhat lightheaded. Patient has history of GERD, type 2 diabetes, hypertension, history of DVT, and history of MDS. Patient denies fever or recent illness. Patient with history of anemia. [facility] Medical History Abnormal stress test Atherosclerosis of coronary artery bypass graft(s), unspecified, with other forms of angina pectoris Atherosclerotic heart disease of [place] coronary artery without angina pectoris Benign hypertension Diabetes mellitus, type 2 Diverticulitis GERD (gastroesophageal reflux disease) History of DVT (deep vein thrombosis) History of esophageal stricture History of pulmonary embolism Hyperlipidemia Ischemic cardiomyopathy LBBB (left bundle branch block) Obesity Systolic CHF, chronic Thromboembolic disorder Home Medications calcium carbonate-vitamin D3 1 each PO DAILY 03/08/17 [History Last Taken 05/28/19 17:00] cyanocobalamin (vitamin B-12) 500 mcg PO DAILY@0800 12/07/17 [History Last Taken 05/28/19 12:00] nitroglycerin 0.4 mg sublingual tablet 0.4 mg SL Q5-15M PRN #25 tablet 12/12/19 [Rx Last Taken Unknown] coenzyme Q10 10 mg PO DAILY 06/11/20 [History Last Taken Unknown] folic acid 1 mg PO DAILY 11/10/20 [History Last Taken Unknown] zinc 50 mg tablet 50 mg PO DAILY 11/13/20 [History Last Taken Unknown] aspirin 81 mg tablet,delayed release 81 mg PO DAILY 11/26/20 [History Last Taken Unknown] methocarbamol 500 mg tablet 500 mg PO TID tablet 11/26/20 [History Last Taken Unknown] omeprazole 40 mg capsule,delayed release 40 mg PO DAILY cap 11/26/20 [History Last Taken Unknown] ondansetron 4 mg disintegrating tablet 4 mg PO Q8H PRN tablet 11/26/20 [History Last Taken Unknown] potassium chloride 10 mEq capsule,extended release 10 meq PO DAILY cap 11/26/20 [History Last Taken Unknown] isosorbide mononitrate 60 mg tablet,extended release 24 hr 60 mg PO DAILY #90 tablet 12/02/20 [Rx Last Taken Unknown] warfarin 3 mg tablet See Rx Instructions PO DAILY #96 tablet 12/09/20 [Rx Last Taken Unknown] gabapentin 600 mg tablet 600 mg PO 4X/DAY tab 12/11/20 [History Last Taken Unknown] rosuvastatin 40 mg tablet See Rx Instructions .ROUTE .COMPLEX #90 tablet 12/18/20 [Rx Last Taken Unknown] ranolazine 500 mg tablet,extended release,12 hr 500 mg PO BID #180 tab 12/23/20 [Rx Last Taken Unknown] acetaminophen 325 mg capsule 650 mg PO Q8H PRN cap 01/06/21 [History Last Taken Unknown] diphenhydramine HCl 25 mg capsule 25 mg PO QHS PRN #1 cap 01/06/21 [Rx Last Taken Unknown] lactobacillus combination no.9 4 billion cell capsule 4,000 mmu cells PO DAILY 01/06/21 [History Last Taken Unknown] warfarin 1 mg tablet See Rx Instructions PO DAILY #90 tablet 01/08/21 [Rx Last Taken Unknown] buprenorphine 1 patch TRANSDERMAL Q7D 01/21/21 [History Last Taken Unknown] ciprofloxacin HCl 500 mg PO BID #14 tablet 01/21/21 [Rx Last Taken Unknown] hydrocodone-acetaminophen 1 tab PO Q6H PRN PRN 3 Days #12 tablet 01/21/21 [Rx Last Taken Unknown] metronidazole 500 mg PO Q8H #21 tab 01/21/21 [Rx Last Taken Unknown] nitrofurantoin monohyd/m-cryst [Macrobid] 100 mg PO BID 01/21/21 [History Last Taken Unknown] metoprolol succinate 25 mg tablet,extended release 24 hr 25 mg PO DAILY #90 tablet 02/10/21 [Rx Last Taken Unknown] spironolactone 25 mg tablet 25 mg PO DAILY #30 tab 04/10/21 [Rx Last Taken Unknown] sacubitril 49 mg-valsartan 51 mg tablet 1 tab PO BID #60 tab 04/16/21 [Rx Last Taken Unknown] furosemide 40 mg tablet 40 mg PO DAILY tab 04/17/21 [History Last Taken Unknown] allopurinol 100 mg tablet 100 mg PO DAILY 05/01/21 [History Last Taken Unknown] Allergy/AdvReac Type Severity Reaction Status Date / Time doxycycline Allergy Mild Swelling Verified 05/03/21 15:40 Sulfa (Sulfonamide Allergy Rash Verified 05/03/21 15:40 Antibiotics) tetracycline [Tetracycline] Allergy Swelling Verified 05/03/21 15:40 metronidazole [From Flagyl] AdvReac Intermediate GI severe Verified 05/03/21 15:40 nausea dicyclomine AdvReac Other Verified 05/03/21 15:40 NSAIDS (Non-Steroidal AdvReac Other Verified 05/03/21 15:40 Anti-Inflamma Penicillins AdvReac Unknown Verified 05/03/21 15:40 Family History Mother Myocardial infarction Hypertension Heart disease History of coronary artery bypass graft Brother Hypertension History of coronary artery bypass graft Father Cancer esophageal Surgical History Aortocoronary bypass status (~10/09/02) H/O arthroscopic knee surgery History of partial knee replacement History of total hysterectomy History of tubal ligation Hx of bilateral breast reduction surgery Hx of cholecystectomy Presence of implantable cardioverter-defibrillator (ICD) (10/22/20) Social History Smoking Status: Never smoker alcohol intake: never substance use type: does not use caffeine: Yes Type: carbonated beverages and coffee Number of servings: 3 what type of physical activity do you participate in: other details: cardiac rehab frequency: 3-4 times per week duration: 45-60 minutes/day seatbelt use: always do you feel safe at home: Yes ROS ROS ED Constitutional Constitutional ED: Reports systems reviewed and no addt'l complaints, except as documented; Denies body ache(s), change in weight or chills Eyes Eyes: Denies acute decrease in peripheral vision, change in vision, double vision or loss of vision ENT ENT ED: Reports none and other Details: Blurred vision ; Denies ear pain, lip swelling, loss taste/smell, neck pain, otalgia or sore throat Cardiovascular Cardiovascular: Reports none; Denies abdominal pain, chest pain with activity, leg edema, lightheadedness, palpitations, rapid heart rate or syncope Respiratory/Chest Respiratory/Chest: Reports none; Denies change in mental status, dry cough, dyspnea, hemoptysis, shortness of breath at rest or shortness of breath with exertion Gastrointestinal Gastrointestinal: Reports none; Denies abdominal pain, change in stool character, diarrhea, hematemesis, hematochezia, melena, rectal bleeding or vomiting Genitourinary Genitourinary ED: Reports none; Denies abdominal discomfort, anuria, dysuria, genital pain or polyuria Musculoskeletal Musculoskeletal: Reports none; Denies arthralgias, back pain, difficulty walking, extremity pain, muscle weakness or myalgias Integumentary Reports none; Denies abscess or rash Neurologic Neurologic: Reports none, paresthesias and other Details: Dizziness and generalized weakness ; Denies abnormal gait, confusion, focal weakness, frequent falls, headache(s), loss of vision, numbness, radicular pain, vertigo or weakness Psychiatric Psychiatric: Reports systems reviewed and no addt'l complaints, except as documented and none; Denies behavioral changes, confusion, difficulty concentrating, hallucinations, suicidal ideation, tactile hallucinations or visual hallucinations Endocrine Endocrinology: Denies none, cold intolerance, excessive sweating, fatigue or heat intolerance Hematologic/Lymphatic Hematologic/Lymphatic: Reports none; Denies anemia, easy bleeding or easy bruising Allergic/Immunologic Allergic/Immunologic ED: Denies as per HPI, none, lip swelling, mouth swelling, throat swelling, tongue swelling or hives EXAM Physical Exam Const Vital Signs: 05/03/21 15:36 Temperature 97.3 F L Temperature Source Temporal Pulse Rate 98 Respiratory Rate 16 Blood Pressure 125/77 H Blood Pressure Mean 93 Pulse Ox 96 Oxygen Delivery Method Room Air Positive well nourished and well developed General Appearance ED: well developed and NAD HEENT Reports TM's clear and moist mucous membranes normocephalic and atraumatic; Negative for trauma or tenderness Tympanic Membrane ED: Yes TM's clear Eyes PERRL and EOMs intact bilaterally General Eye ED: Negative for pale conjunctiva or scleral icterus Neck no lymphadenopathy, supple and no JVD General: Negative for tenderness Chest Wall inspection of chest normal and palpation of chest normal Chest: Negative for tenderness Resp normal respiratory effort and clear to auscultation bilaterally Effort and Inspection: Negative for respiratory distress or pain with movement Auscultation: Negative for rhonchi, wheezes or diminished lung sounds Cardio regular rate, regular rhythm, S1 normal heart sound, S2 normal heart sound and no murmurs Peripheral Pulses: pulses 2+ throughout GI normal to inspection, nondistended, normoactive bowel sounds, soft to palpation, non-tender, non-distended and no masses Back/Spine no CVA tenderness and no thoracic nor lumbar tenderness Extremity normal to inspection General Extremety ED: Negative for edema General Extremity: Negative for edema Neuro oriented x3, CN's II-XII intact bilaterally, no sensory deficits noted and gait normal Neuro Narrative: NIH stroke scale was 0. There is no focal weakness noted. No facial droop. Sensorium / Orientation: awake, alert, oriented to person, oriented to place and oriented to time Motor Exam: strength 5/5 throughout and strength abnormal Psych mental status grossly normal Skin no rashes or lesions noted and no wounds MDM MDM MDM Narrative Medical decision making narrative: Patient's work-up unremarkable in the emergency department. Symptoms are not consistent with stroke. Etiology of her paresthesias is unclear. Patient is comfortable going home. She will follow up with her primary care physician within next 3 to 5 days. Lab Data Attestation: I reviewed the patient's lab results. Labs: Laboratory Results - last 24 hr 05/03/21 05/03/21 05/03/21 16:35 16:35 18:33 WBC 6.5 RBC 3.48 L Hgb 10.2 L Hct 33.4 L MCV 96.0 MCH 29.3 MCHC 30.5 L RDW Std Deviation 68.3 H RDW Coeff of Maty 19.7 H Plt Count 130 L Neut % (Auto) Not Reportable Absolute Neuts (auto) 2.9 Absolute Lymphs (auto) 2.08 Total Counted 100 Neutrophils % (Manual) 38 L Band Neutrophils % 7 H Lymphocytes % (Manual) 32 Monocytes % (Manual) 18 H Eosinophils % (Manual) 1 Myelocytes % 4 H Differential Comment SCANNED Diff Path Review May foll Platelet Estimate SLT DEC Plt Morphology Comment GIANT Anisocytosis 3+ Sodium 135 L Potassium 4.8 Chloride 101 Carbon Dioxide 26.0 Anion Gap 8 BUN 27 H Creatinine 1.61 H Estim Creat Clear Calc 24.24 Est GFR (MDRD) Af Amer 39 L Est GFR (MDRD) Non-Af 33 L BUN/Creatinine Ratio 16.8 Glucose 135 H Calcium 9.3 Troponin I High Sens 16 Urine Color Yellow Urine Clarity Clear Urine pH 6.0 Ur Specific [place] 1.010 Urine Protein Negative Urine Glucose (UA) Normal Urine Ketones Negative Urine Occult Blood Negative Urine Nitrite Negative Urine Bilirubin Negative Urine Urobilinogen Normal Ur Leukocyte Esterase Negative Urine RBC 0-5 SEEN Urine WBC 0 SEEN Ur Squamous Epith Cells 0-5 SEEN Urine Bacteria RARE Urine Mucus RARE Radiography Diagnostic Testing: Radiology Impression Brain CT 05/03/21 16:48 IMPRESSION: 1. No acute or focal disease. 2. Stable since prior. 3. Mild to moderate chronic white matter ischemic change. Electronically Signed: Leigh Darby MD at 18:18 EDT Tel , Service support , EKG Initial EKG: Attestation: I personally reviewed and interpreted this EKG as follows: Comments: Sinus rhythm with a ventricular rate of 94 bpm with nonspecific intraventricular conduction delay. Discharge Plan Triage Chief Complaint: Allergic Reaction ED Provider: Howard Srinivasan Dx/Rx/DC Orders Clinical Impression: Facial paresthesia, Blurred vision, Generalized weakness Instructions: ED Blurred Vision, ED Weakness (Uncertain Cause), ED Paraesthesias Prescriptions: No Action aspirin [Adult Low Dose Aspirin] 81 mg tablet,delayed release (DR/EC) 81 mg PO DAILY RF: 0 omeprazole 40 mg capsule,delayed release(DR/EC) 40 mg PO DAILY RF: 0 potassium chloride 10 mEq capsule, extended release 10 meq PO DAILY RF: 0 calcium carbonate-vitamin D3 1 EACH tablet 1 each PO DAILY RF: 0 gabapentin 600 mg tablet 600 mg PO 4X/DAY RF: 0 cyanocobalamin (vitamin B-12) 500 MCG tablet 500 mcg PO DAILY@0800 RF: 0 methocarbamol 500 mg tablet 500 mg PO TID RF: 0 coenzyme Q10 10 MG capsule 10 mg PO DAILY RF: 0 folic acid 1 MG tablet 1 mg PO DAILY RF: 0 ondansetron 4 mg tablet,disintegrating 4 mg PO Q8H PRN (Reason: Nausea) RF: 0 buprenorphine 15 mcg/hour Patch Weekly 1 patch TRANSDERMAL Q7D RF: 0 nitrofurantoin monohyd/m-cryst [Macrobid] 100 mg Capsule 100 mg PO BID RF: 0 metronidazole [metronidazole] 500 MG tablet 500 mg PO Q8H Qty: 21 RF: 0 ciprofloxacin HCl [ciprofloxacin HCl] 500 MG tablet 500 mg PO BID Qty: 14 RF: 0 hydrocodone-acetaminophen [hydrocodone-acetaminophen] 1 TABLET tablet 1 tab PO Q6H PRN PRN (Reason: Pain) 3 Days Qty: 12 RF: 0 nitroglycerin 0.4 mg tablet, sublingual 0.4 mg SL Q5-15M PRN (Reason: chest pain) Qty: 25 RF: 1 zinc 50 mg tablet 50 mg PO DAILY RF: 0 isosorbide mononitrate 60 mg tablet extended release 24 hr 60 mg PO DAILY Qty: 90 RF: 3 warfarin 3 mg tablet See Rx Instructions mg PO DAILY Qty: 96 RF: 3 rosuvastatin 40 mg tablet See Rx Instructions .ROUTE .COMPLEX Qty: 90 RF: 3 ranolazine 500 mg tablet extended release 12 hr 500 mg PO BID Qty: 180 RF: 3 Hold Instructions: Per [facility] discharge diphenhydramine HCl [Benadryl] 25 mg capsule 25 mg PO QHS PRN (Reason: sleep) Qty: 1 RF: 0 acetaminophen 325 mg capsule 650 mg PO Q8H PRN (Reason: Pain) RF: 0 Adult 50 Plus Probiotic 4 billion cell capsule 4,000 mmu cells PO DAILY RF: 0 warfarin 1 mg tablet See Rx Instructions mg PO DAILY Qty: 90 RF: 3 metoprolol succinate 25 mg tablet extended release 24 hr 25 mg PO DAILY Qty: 90 RF: 3 spironolactone 25 mg tablet 25 mg PO DAILY Qty: 30 RF: 3 Entresto 49-51 mg tablet 1 tab PO BID Qty: 60 RF: 11 furosemide 40 mg tablet 40 mg PO DAILY RF: 0 allopurinol 100 mg tablet 100 mg PO DAILY RF: 0 Primary Care Provider: Osiel Arzola Referrals: Osiel Arzola MD [Primary Care Provider] - 3-5 Days Disposition Disposition: Home, Self Care
--- NOTE | 2021-05-03 16:48 | EKG12_ITS ---
Test Reason : NEURO S Blood Pressure : / mmHG Vent. Rate : 094 BPM Atrial Rate : 094 BPM P-R Int : 202 ms QRS Dur : 130 ms QT Int : 376 ms P-R-T Axes : 066 -15 -11 degrees QTc Int : 470 ms Normal sinus rhythm Non-specific intra-ventricular conduction block Abnormal ECG Confirmed by KALE YADAV, MISTY ([id number]), slot editor RAINER EUGENE ([id number]) on 05/05/2021 10:38:47 AM Referred By: NIR Confirmed By:MISTY HENLEY MD
--- NOTE | 2021-05-03 16:48 | CT_ITS ---
STUDY: CT BRAIN WITHOUT CONTRAST REASON FOR EXAM: Female, 80 years old. Paresthesias and weakness RADIATION DOSAGE (If Supplied By Facility): CTDIvol = ( 44.99 ) mGy, DLP = ( 745.49 ) mGycm TECHNIQUE: Transaxial CT imaging of the brain was performed without administration of intravenous contrast material. Individualized dose optimization techniques were used for this CT. COMPARISON: 10 May 2019 FINDINGS: Brain parenchyma is without focal lesions, mass effect, acute intracranial hemorrhage, extra parenchymal fluid collections, hydrocephalus or herniation. There is mild to moderate chronic white matter ischemic hypodensity. The skull is intact. CT/Brain/Head without Contrast IMPRESSION: 1. No acute or focal disease. 2. Stable since prior. 3. Mild to moderate chronic white matter ischemic change. Electronically Signed: Leigh Darby MD at 18:18 EDT Tel , Service support ,
[2021-05-03] MEDS: 0.9% Normal Saline 1,000 ML 150 ML IV (17:01)
[2021-05-03 17:10] LABS: Hematocrit 33.4 % (37-47); Hemoglobin 10.2 g/dL (12.0-15.0); Mean Corp Hgb Conc 30.5 g/dL (32-36); Mean Corpuscular Hgb 29.3 pg (27.0-32.0); POSITIVE COUNT YES; POSITIVE MORPHOLOGY YES; Platelet Count 130 K/mm3 (150-450); RBC Distribution Width CV 19.7 % (11.6-14.6); RBC Distribution Width SD 68.3 fl (35.1-43.9); Red Blood Count 3.48 M/mm3 (4.2-5.4); White Blood Count 6.5 K/mm3 (4.4-11.0)
[2021-05-03 17:20] LABS: Differential Indicated MANUAL DIFF
[2021-05-03 17:22] LABS: Anion Gap 8 (5-15); BUN 27 mg/dL (7-18); BUN/Creat Ratio 16.8 RATIO (10-20); Calcium,Total 9.3 mg/dL (8.5-10.1); Chloride 101 mmol/L (98-107); Creatinine, Serum 1.61 mg/dL (0.55-1.02); EST Glomerular Filtration Rate 33 mL/min (>60); Est Glom Filt Rate - Afr Amer 39 mL/min (>60); Estimated Creatinine Clearance 24.24 ml/min; Glucose 135 mg/dL (74-106); Potassium 4.8 mmol/L (3.5-5.1); Sodium Level 135 mmol/L (136-145); Troponin-I HS 16 pg/mL (3.0-54.0)
[2021-05-03 18:27] LABS: Eosinophil 1 % (0-5); Lymphocyte 32 % (19-41); Monocyte 18 % (0-10); Myelocyte 4 % (0-0); Neutrophil-Band 7 % (0-5); Neutrophil-Segmented 38 % (47-70); Total Cells Counted 100 (MANUAL DIFF)
[2021-05-03 18:30] LABS: Differential Comment SCANNED; Platelet Estimate SLT DEC (ADEQ)
[2021-05-03 18:31] LABS: Anisocytosis 3+; Platelet Morphology GIANT
[2021-05-03 18:33] LABS: Absolute Lymphocyte Count 2.08 X10^3/uL (0.83-4.51); Absolute Neutrophil Count 2.9 X10^3/uL (2.0-7.7); Lymphocyte # 2.08 X10^3/ul (0.83-4.51); Neutrophil # 2.93 X10^3/uL (2.7-7.7)
[2021-05-03 18:43] LABS: Color, Urine Yellow (Yellow); Glucose, Dipstick Normal (Normal); Ketone-Dipstick Negative (Negative); Leukocyte Esterase-Dipstick Negative /ul (Negative); Nitrite-Dipstick Negative (Negative); Occult Blood-Urine Negative /ul (Negative); Protein-Dipstick Negative (Negative); Urine Bilirubin Dipstick Negative (Negative); Urine Clarity Clear (Clear); Urine Urobilinogen Normal (Normal); White Blood Cells 0 SEEN /hpf (0-5)
[2021-05-03 18:51] LABS: Bacteria RARE /hpf (None Seen); Mucous, Urine RARE /hpf (<or=2+); Squamous Epithelial Cells - UA 0-5 SEEN /hpf (5-10)
[2021-05-03 18:52] LABS: Red Blood Cells-Urine 0-5 SEEN /hpf (0-5)
[2021-05-03 19:22] VITALS: BP 102/87; PULSE 92; RESP 17
[2021-05-04 02:56] LABS: Red Cell Morphology NORM C+C NORMAL (NORM C&C)
[2021-05-05 12:48] LABS: Pathologist Review Reviewed
== END 2021-05-03 19:23 | disposition home or self-care (01) ==
PROVIDERS: Emergency Provider Emergency Medicine; PCP Family Medicine
DX: R53.1 Weakness (principal); H53.8 Other visual disturbances; R20.2 Paresthesia of skin; I67.82 Cerebral ischemia; E11.9 Type 2 diabetes mellitus without complications; E78.5 Hyperlipidemia, unspecified; I11.0 Hypertensive heart disease with heart failure; I25.10 Atherosclerotic heart disease of native coronary artery without angina pectoris; I25.5 Ischemic cardiomyopathy; I44.7 Left bundle-branch block, unspecified; K21.9 Gastro-esophageal reflux disease without esophagitis; Z79.01 Long term (current) use of anticoagulants; Z79.1 Long term (current) use of non-steroidal anti-inflammatories (NSAID); Z79.82 Long term (current) use of aspirin; Z86.711 Personal history of pulmonary embolism; Z86.718 Personal history of other venous thrombosis and embolism
CPT/HCPCS: 70450; 80048; 81001; 84484; 85025; 93005; 96360; 96361; 99283; A4216

== ENCOUNTER → 2021-05-07 07:42 | Outpatient (CLI) | payer MEDICARE, SELFPAY ==
[2021-05-07 11:39] LABS: International Normalized Ratio 2.4
== END ==
PROVIDERS: PCP Family Medicine; Visit Provider Internal Medicine Cardiovascular Disease
DX: I74.9 Embolism and thrombosis of unspecified artery (principal); I25.10 Atherosclerotic heart disease of native coronary artery without angina pectoris; Z79.01 Long term (current) use of anticoagulants
CPT/HCPCS: 36415; 85610

== ENCOUNTER → 2021-05-21 08:56 | Outpatient (CLI) | payer MEDICARE, SELFPAY ==
[2021-05-21 10:24] LABS: International Normalized Ratio 2.3; Prothrombin Time (Protime)PT. 24.9 SECONDS (11.7-14.9)
== END ==
PROVIDERS: PCP Family Medicine; Referring Provider Internal Medicine Cardiovascular Disease; Visit Provider Internal Medicine Cardiovascular Disease
DX: Z86.718 Personal history of other venous thrombosis and embolism (principal); Z79.01 Long term (current) use of anticoagulants
CPT/HCPCS: 36415; 85610

== ENCOUNTER → 2021-05-23 17:05 | Outpatient (CLI) | payer MEDICARE, SELFPAY | PROVIDERS: PCP Family Medicine; Visit Provider Internal Medicine Hematology & Oncology | DX: Z51.89 Encounter for other specified aftercare (principal); D46.9 Myelodysplastic syndrome, unspecified | CPT/HCPCS: 86850; 86900; 86901; 86920; 86922 ==

== ENCOUNTER 2021-05-25 08:55 | Inpatient (IN) | payer MEDICARE, SELFPAY ==
[2021-05-25] VITALS (15 sets, daily range): BP systolic 90–112; BP diastolic 42–62; PULSE 92–120; RESP 10–18; TEMP 36.4–37.1; O2SAT 92–100; BMI 33.4; BMI 31.6
--- NOTE | 2021-05-25 09:21 | EKG12_ITS ---
Test Reason : CP Blood Pressure : / mmHG Vent. Rate : 095 BPM Atrial Rate : 095 BPM P-R Int : 192 ms QRS Dur : 132 ms QT Int : 372 ms P-R-T Axes : 078 -07 063 degrees QTc Int : 467 ms Normal sinus rhythm Non-specific intra-ventricular conduction block Abnormal ECG Confirmed by LINDSAY YADAV, LEONOR ([id number]), fan mail editor RAINER EUGENE ([id number]) on 05/26/2021 12:55:28 PM Referred By: ALEXANDER Confirmed By:LEONOR MONTOYA MD
[2021-05-25 09:34] LABS: Hematocrit 22.3 % (37-47); Hemoglobin 6.4 g/dL (12.0-15.0); Mean Corp Hgb Conc 28.7 g/dL (32-36); Mean Corpuscular Hgb 29.2 pg (27.0-32.0); Mean Corpuscular Volume 101.8 fL (81-99); Mean Platelet Vol. 14.3 fl (6.2-12.0); POSITIVE COUNT YES; POSITIVE MORPHOLOGY YES; Platelet Count 175 K/mm3 (150-450); RBC Distribution Width CV 22.5 % (11.6-14.6); RBC Distribution Width SD 81.3 fl (35.1-43.9); Red Blood Count 2.19 M/mm3 (4.2-5.4); White Blood Count 6.2 K/mm3 (4.4-11.0)
[2021-05-25 09:35] LABS: Differential Indicated MANUAL DIFF
[2021-05-25] MEDS: Morphine 4 MG/ML Syringe IV (09:36)
--- NOTE | 2021-05-25 09:45 | RAD_ITS ---
STUDY: X-RAY CHEST REASON FOR EXAM: Female, 80 years old. chest pain TECHNIQUE: Single AP portable view of the chest. COMPARISON: 11/10/2020 FINDINGS: Left subclavian dual-lead AICD which is unchanged. Status post median sternotomy. Reticular opacities within the lungs consistent with interstitial pulmonary edema. Tiny left pleural effusion. There is moderate cardiac enlargement. Normal mediastinum and pranay. There is prominence of the pulmonary hilar arteries and peripheral pulmonary arteries, consistent with congestive heart failure (CHF). Normal visualized aortic arch and descending thoracic aorta. Normal visualized thoracic spine. Normal visualized ribs, clavicles, and shoulders. There is no demonstrated abnormality of the visualized soft tissue structures of the upper abdomen. RAD/Chest 1 View (Portable) IMPRESSION: Moderate congestive heart failure. Electronically Signed: Patricio Reynolds MD at 10:08 EDT Tel , Service support ,
[2021-05-25 09:48] LABS: Anion Gap 7 (5-15); BUN 35 mg/dL (7-18); BUN/Creat Ratio 21.5 RATIO (10-20); Calcium,Total 8.6 mg/dL (8.5-10.1); Chloride 104 mmol/L (98-107); Creatinine, Serum 1.63 mg/dL (0.55-1.02); EST Glomerular Filtration Rate 32 mL/min (>60); Est Glom Filt Rate - Afr Amer 39 mL/min (>60); Estimated Creatinine Clearance 23.94 ml/min; Glucose 113 mg/dL (74-106); Sodium Level 136 mmol/L (136-145); Troponin-I HS 18 pg/mL (3.0-54.0)
[2021-05-25 10:21] LABS: Eosinophil 7 % (0-5); Hypochromasia 3+; Lymphocyte 31 % (19-41); Metamyelocyte 1 % (0-1); Monocyte 13 % (0-10); Myelocyte 4 % (0-0); Neutrophil-Band 1 % (0-5); Neutrophil-Segmented 43 % (47-70); Nucleated Red Bld Cells,Manual 1 % (0-5); Platelet Estimate ADEQUATE (ADEQ); Total Cells Counted 100 (MANUAL DIFF); Vacuolated Cells RARE
[2021-05-25 10:22] LABS: Absolute Lymphocyte Count 1.92 X10^3/uL (0.83-4.51); Absolute Neutrophil Count 2.7 X10^3/uL (2.0-7.7); Polychromasia RARE
[2021-05-25 11:19] LABS: Troponin-I HS 29 pg/mL (3.0-54.0)
--- NOTE | 2021-05-25 12:27 | ED.RN ---
Pt. states pain in chest is back and that it is painful when they have to get up and move; pt. was just assisted to BSC and back to bed.
--- NOTE | 2021-05-25 12:54 | PCM.HP.STD ---
HPI - General General Date of Admission: 05/25/21 Date of Service: 05/25/21 Chief Complaint: Chest pain HPI Narrative RIP LORENZO, is a 80 F with multiple comorbidities including coronary artery disease with subsequent ischemic cardiomyopathy with EF of 25% who presented with chest pain. Patient symptoms started a day prior to coming in. Pain was described as pressure with location in the retrosternal region. Per patient pain radiated to both arms. Presented to the emergency as a result. Patient was found to be anemic. She apparently has chronic anemia and is currently being evaluated and managed by [facility] oncology?Dr. Ramey is scheduled to receive 2 unit PRBC on 05/26/2021. Hemoglobin on admission was 6.4. Admitted to monitored bed for subsequent management [facility] Medical History Abnormal stress test Atherosclerosis of coronary artery bypass graft(s), unspecified, with other forms of angina pectoris Atherosclerotic heart disease of [place] coronary artery without angina pectoris Benign hypertension Diabetes mellitus, type 2 Diverticulitis GERD (gastroesophageal reflux disease) History of DVT (deep vein thrombosis) History of esophageal stricture History of pulmonary embolism Hyperlipidemia Ischemic cardiomyopathy LBBB (left bundle branch block) Obesity Systolic CHF, chronic Thromboembolic disorder Home Medications calcium carbonate-vitamin D3 1 each PO DAILY 03/08/17 [History Last Taken 05/28/19 17:00] cyanocobalamin (vitamin B-12) 500 mcg PO DAILY@0800 12/07/17 [History Last Taken 05/28/19 12:00] nitroglycerin 0.4 mg sublingual tablet 0.4 mg SL Q5-15M PRN #25 tablet 12/12/19 [Rx Last Taken Unknown] coenzyme Q10 10 mg PO DAILY 06/11/20 [History Last Taken Unknown] folic acid 1 mg PO DAILY 11/10/20 [History Last Taken Unknown] zinc 50 mg tablet 50 mg PO DAILY 11/13/20 [History Last Taken Unknown] aspirin 81 mg tablet,delayed release 81 mg PO DAILY 11/26/20 [History Last Taken Unknown] methocarbamol 500 mg tablet 500 mg PO TID tablet 11/26/20 [History Last Taken Unknown] omeprazole 40 mg capsule,delayed release 40 mg PO DAILY cap 11/26/20 [History Last Taken Unknown] ondansetron 4 mg disintegrating tablet 4 mg PO Q8H PRN tablet 11/26/20 [History Last Taken Unknown] potassium chloride 10 mEq capsule,extended release 10 meq PO DAILY cap 11/26/20 [History Last Taken Unknown] isosorbide mononitrate 60 mg tablet,extended release 24 hr 60 mg PO DAILY #90 tablet 12/02/20 [Rx Last Taken Unknown] warfarin 3 mg tablet See Rx Instructions PO DAILY #96 tablet 12/09/20 [Rx Last Taken Unknown] gabapentin 600 mg tablet 600 mg PO 4X/DAY tab 12/11/20 [History Last Taken Unknown] rosuvastatin 40 mg tablet See Rx Instructions .ROUTE .COMPLEX #90 tablet 12/18/20 [Rx Last Taken Unknown] ranolazine 500 mg tablet,extended release,12 hr 500 mg PO BID #180 tab 12/23/20 [Rx Last Taken Unknown] acetaminophen 325 mg capsule 650 mg PO Q8H PRN cap 01/06/21 [History Last Taken Unknown] diphenhydramine HCl 25 mg capsule 25 mg PO QHS PRN #1 cap 01/06/21 [Rx Last Taken Unknown] lactobacillus combination no.9 4 billion cell capsule 4,000 mmu cells PO DAILY 01/06/21 [History Last Taken Unknown] warfarin 1 mg tablet See Rx Instructions PO DAILY #90 tablet 01/08/21 [Rx Last Taken Unknown] buprenorphine 1 patch TRANSDERMAL Q7D 01/21/21 [History Last Taken Unknown] ciprofloxacin HCl 500 mg PO BID #14 tablet 01/21/21 [Rx Last Taken Unknown] hydrocodone-acetaminophen 1 tab PO Q6H PRN PRN 3 Days #12 tablet 01/21/21 [Rx Last Taken Unknown] metronidazole 500 mg PO Q8H #21 tab 01/21/21 [Rx Last Taken Unknown] nitrofurantoin monohyd/m-cryst [Macrobid] 100 mg PO BID 01/21/21 [History Last Taken Unknown] metoprolol succinate 25 mg tablet,extended release 24 hr 25 mg PO DAILY #90 tablet 02/10/21 [Rx Last Taken Unknown] spironolactone 25 mg tablet 25 mg PO DAILY #30 tab 04/10/21 [Rx Last Taken Unknown] sacubitril 49 mg-valsartan 51 mg tablet 1 tab PO BID #60 tab 04/16/21 [Rx Last Taken Unknown] furosemide 40 mg tablet 20 mg PO DAILY tab 04/17/21 [History Last Taken Unknown] Allergy/AdvReac Type Severity Reaction Status Date / Time doxycycline Allergy Mild Swelling Verified 05/25/21 09:04 allopurinol Allergy Unknown unknown Verified 05/25/21 09:04 Sulfa (Sulfonamide Allergy Rash Verified 05/25/21 09:04 Antibiotics) tetracycline [Tetracycline] Allergy Swelling Verified 05/25/21 09:04 metronidazole [From Flagyl] AdvReac Intermediate GI severe Verified 05/25/21 09:04 nausea acetaminophen [From Percocet] AdvReac Upset Verified 05/25/21 09:05 Stomach cephalexin [From Keflex] AdvReac Nausea/Vom/ Verified 05/25/21 09:06 Diarrhea dicyclomine AdvReac Other Verified 05/25/21 09:04 NSAIDS (Non-Steroidal AdvReac Other Verified 05/25/21 09:04 Anti-Inflamma oxycodone [From Percocet] AdvReac Upset Verified 05/25/21 09:05 Stomach Penicillins AdvReac Unknown Verified 05/25/21 09:04 Family History Mother Myocardial infarction Hypertension Heart disease History of coronary artery bypass graft Brother Hypertension History of coronary artery bypass graft Father Cancer esophageal Surgical History Aortocoronary bypass status (~10/09/02) H/O arthroscopic knee surgery History of partial knee replacement History of total hysterectomy History of tubal ligation Hx of bilateral breast reduction surgery Hx of cholecystectomy Presence of implantable cardioverter-defibrillator (ICD) (10/22/20) Social History Smoking Status: Never smoker alcohol intake: never substance use type: does not use caffeine: Yes Type: carbonated beverages and coffee Number of servings: 3 what type of physical activity do you participate in: other details: cardiac rehab frequency: 3-4 times per week duration: 45-60 minutes/day seatbelt use: always do you feel safe at home: Yes ROS ROS Narrative GENERAL: denies fever, chills, night sweats, HEENT: denies headache, sinus congestion, RESPIRATORY: denies cough, sputum production, CARDIAC: chest pain, palpitations, orthopnea, PND GASTROINTESTINAL: denies abdominal pain, nausea, GENITOURINARY: denies dysuria, urgency, frequency, EXTREMITY: denies swelling MUSCULOSKELETAL: denies current joint pain or tenderness NEUROLOGIC: denies focal numbness, weakness, tingling HEMATOLOGIC: denies easy bruising and/or hemorrhage INTEGUMENT: denies rashes PSYCHIATRIC: denies suicidal or homicidal ideation Vital Signs Vital Signs Vital Signs: 05/25/21 08:56 05/25/21 09:37 05/25/21 10:51 Temperature 97.6 F L Temperature Source Temporal Pulse Rate 105 H 93 Respiratory Rate 18 10 L Blood Pressure 107/58 L 105/44 L Blood Pressure Mean 74 64 Pulse Ox 98 92 Oxygen Delivery Method Room Air Room Air Room Air 05/25/21 10:52 05/25/21 12:25 Temperature Temperature Source Pulse Rate 92 108 H Respiratory Rate 16 18 Blood Pressure 105/44 L 112/56 L Blood Pressure Mean 64 74 Pulse Ox 100 100 Oxygen Delivery Method Room Air Room Air Weight Weight: 91.05 kg Body Mass Index (BMI) 33.4 Physical Exam Narrative GENERAL: cooperative HEENT: Atraumatic; EYES; Anicteric, Normal Conjunctiva NECK; supple, normal thyroid, RESPIRATORY: Diminished to auscultation CARDIOVASCULAR: Regular S1 S2, GI: soft, normoactive bowel sounds, : No Renal angle tenderness; EXTREMITIES: No edema, no clubbing, MUSCULOSKELETAL: no muscle waisting NEURO: Awake; no lateralizing signs. SKIN: No Rash PSYCH; Flat affect Results Lab / Micro Data Result Diagrams: 05/25/21 08:36 05/25/21 08:36 Labs: Laboratory Results - last 24 hr 05/25/21 08:36: WBC 6.2, RBC 2.19 L, Hgb 6.4 L, Hct 22.3 L, MCV 101.8 H, MCH 29.2, MCHC 28.7 L, RDW Std Deviation 81.3 H, RDW Coeff of Maty 22.5 H, Plt Count 175, MPV 14.3 H, Neut % (Auto) Not Reportable, Absolute Neuts (auto) 2.7, Absolute Lymphs (auto) 1.92, Total Counted 100, Neutrophils % (Manual) 43 L, Band Neutrophils % 1, Lymphocytes % (Manual) 31, Monocytes % (Manual) 13 H, Eosinophils % (Manual) 7 H, Metamyelocytes % 1, Myelocytes % 4 H, Nucleated RBCs/100 WBC 1, Diff Path Review May foll, Toxic Vacuolation RARE, Platelet Estimate ADEQUATE, Polychromasia RARE, Hypochromasia 3+ 05/25/21 08:36: Sodium 136, Potassium 5.0, Chloride 104, Carbon Dioxide 25.0, Anion Gap 7, BUN 35 H, Creatinine 1.63 H, Estim Creat Clear Calc 23.94, Est GFR (MDRD) Af Amer 39 L, Est GFR (MDRD) Non-Af 32 L, BUN/Creatinine Ratio 21.5 H, Glucose 113 H, Calcium 8.6, Troponin I High Sens 18 05/25/21 11:00: Troponin I High Sens 29 Radiology Impression Chest X-Ray 05/25/21 09:45 IMPRESSION: Moderate congestive heart failure. Electronically Signed: Patricio Reynolds MD at 10:08 EDT Tel , Service support , Assessment & Plan Assessment/Plan (1) Anemia: (2) Chest pain: PLAN: Patient is an 80-year-old lady with multiple comorbidities admitted with chest pain Chest pain ?Do suspect patient's severe anemia contributing to ischemia with resultant chest pain. Patient has never been admitted to monitored bed [place] is currently being ruled out with serial cardiac enzymes 2. Severe anemia ?Secondary to myeloproliferative/myelodysplastic syndrome. Patient is managed by Dr. Warner as outpatient with frequent blood transfusion. Hemoglobin on admission was 6.4 admitted to monitored bed and order was given for patient to be transfused with 1 unit PRBC with posttransfusion H&H 3. Chronic congestive heart failure with reduced ejection fraction of 25% Patient is on Entresto. Patient also on Aldactone held in view of potassium being 5.0 4. Coronary artery disease -with EF of 25% and subsequent ischemic cardiomyopathy status post CABG; Patient is on aspirin statin therapy metoprolol as well as isosorbide 5. Hypertension - Blood pressure controlled, home medications continued with dose adjustment as needed 6. Dyslipidemia -Patient is on statin therapy, continued at home dose 7. Ischemic cardiomyopathy ?Status post AICD placement patient had a recent interrogation on 05/01/2021 functioning as programmed 8. Chronic kidney disease stage IIIb ?Kidney function at baseline 9. History of previous DVT ?Patient is on systemic anticoagulation with Coumadin INR ordered to aid dosing of Coumadin 10. Obesity with BMI of 31.7 ?Weight loss advised 11. DVT prophylaxis ?On Coumadin Advance planning; did discuss with the patient and family regarding advanced directives as well as CODE STATUS. Did explain the various scenarios involved ( FULL CODE, DNR CCA, DNR CCA with no intubation, and DNR CC and what each meant) patient elected to be DNR CCA no intubation. Order was placed. Time spent on discussion 18 minutes. Charges/Coding Visit Charges Inpatient E&M: 19162 Init Hosp L3 Procedures Hospitalists Procedures: 15260 Advncd Care Plan 30 Min
--- NOTE | 2021-05-25 13:13 | NURSING ---
[address] CP, ANEMIA
[2021-05-25 14:01] LABS: International Normalized Ratio 3.2; Prothrombin Time (Protime)PT. 32.1 SECONDS (11.7-14.9)
[2021-05-25 15:18] LABS: Troponin-I HS 29 pg/mL (3.0-54.0)
[2021-05-25] MEDS: Ondansetron 4 MG/2 ML Vial IV (15:59)
[2021-05-25] MEDS: 0.9% Saline Lock 10 ML Syringe IV ×2 (15:59→18:41)
--- NOTE | 2021-05-25 16:59 | ED.VIS.CHEST ---
HPI History of Present Illness Chief Complaint: Chest Pain Informant: patient Onset/Context/Timing Onset: Yesterday Activity at onset: gradual Timing: Continuous Quality: Positive for Aching Location: Left Chest Worsened By: Nothing Relieved By: Rest Associated Symptoms: Positive for Nausea, Acid Reflux and Palpitations; Negative for Vomiting, Diaphoresis, Dyspnea, Cough, Fever and Lightheadedness Narrative Narrative: Patient presents with chest pain that began last night. Patient states it is gradually gotten worse. Patient states it has been constant since last night. Patient states the pain is over the left chest. Patient states nothing makes it worse. Patient states it is better at rest. Patient admits to some nausea but denies any vomiting. Patient denies any diaphoresis. Patient denies any shortness of breath, cough, or fever. Patient admits to some palpitations and some reflux symptoms. [facility] Medical History Abnormal stress test Atherosclerosis of coronary artery bypass graft(s), unspecified, with other forms of angina pectoris Atherosclerotic heart disease of [place] coronary artery without angina pectoris Benign hypertension Diabetes mellitus, type 2 Diverticulitis GERD (gastroesophageal reflux disease) History of DVT (deep vein thrombosis) History of esophageal stricture History of pulmonary embolism Hyperlipidemia Ischemic cardiomyopathy LBBB (left bundle branch block) Obesity Systolic CHF, chronic Thromboembolic disorder Home Medications calcium carbonate-vitamin D3 1 each PO DAILY 03/08/17 [History Last Taken 05/24/21] cyanocobalamin (vitamin B-12) 500 mcg PO DAILY@0800 12/07/17 [History Last Taken 05/24/21] nitroglycerin 0.4 mg sublingual tablet 0.4 mg SL Q5-15M PRN #25 tablet 12/12/19 [Rx Last Taken Unknown] folic acid 1 mg PO DINNER 11/10/20 [History Last Taken 05/24/21 18:00] methocarbamol 500 mg tablet 500 mg PO TID tablet 11/26/20 [History Last Taken 05/24/21] omeprazole 40 mg capsule,delayed release 40 mg PO BID cap 11/26/20 [History Last Taken 05/24/21 18:00] ondansetron 4 mg disintegrating tablet 4 mg PO Q8H PRN tablet 11/26/20 [History Last Taken 05/25/21 06:00] potassium chloride 10 mEq capsule,extended release 10 meq PO DAILY cap 11/26/20 [History Last Taken 05/24/21] isosorbide mononitrate 60 mg tablet,extended release 24 hr 60 mg PO DAILY #90 tablet 12/02/20 [Rx Last Taken 05/24/21] gabapentin 600 mg tablet 600 mg PO 4X/DAY tab 12/11/20 [History Last Taken 05/24/21] ranolazine 500 mg tablet,extended release,12 hr 500 mg PO BID #180 tab 12/23/20 [Rx Last Taken 05/24/21] acetaminophen 325 mg capsule 650 mg PO Q8H PRN cap 01/06/21 [History Last Taken Unknown] diphenhydramine HCl 25 mg capsule 25 mg PO QHS PRN #1 cap 01/06/21 [Rx Last Taken 05/24/21] lactobacillus combination no.9 4 billion cell capsule 4,000 mmu cells PO DAILY 01/06/21 [History Last Taken Unknown] buprenorphine 1 patch TRANSDERMAL SA 01/21/21 [History Last Taken 05/24/21] hydrocodone-acetaminophen 1 tab PO Q6H PRN PRN 3 Days #12 tablet 01/21/21 [Rx Last Taken Unknown] nitrofurantoin monohyd/m-cryst [Macrobid] 100 mg PO DAILY@1800 01/21/21 [History Last Taken 05/24/21] spironolactone 25 mg tablet 25 mg PO DAILY #30 tab 04/10/21 [Rx Last Taken 05/24/21] sacubitril 49 mg-valsartan 51 mg tablet 1 tab PO BID #60 tab 04/16/21 [Rx Last Taken 05/24/21] furosemide 40 mg tablet 60 mg PO DAILY tab 04/17/21 [History Last Taken 05/24/21] metoprolol succinate [Toprol XL] 12.5 mg PO DAILY 05/25/21 [History Last Taken 05/24/21] rosuvastatin 40 mg PO QHS 05/25/21 [History Last Taken 05/24/21 20:00] warfarin 4 mg PO DAILY 05/25/21 [History Last Taken 05/24/21 18:00] Allergy/AdvReac Type Severity Reaction Status Date / Time doxycycline Allergy Mild Swelling Verified 05/25/21 16:46 allopurinol Allergy Unknown Angioedema Verified 05/25/21 16:46 Sulfa (Sulfonamide Allergy Rash Verified 05/25/21 16:46 Antibiotics) tetracycline [Tetracycline] Allergy difficulty Verified 05/25/21 16:46 breathing, rash metronidazole [From Flagyl] AdvReac Intermediate GI severe Verified 05/25/21 16:46 nausea WILDA Inhibitors AdvReac cough Verified 05/25/21 16:46 acetaminophen [From Percocet] AdvReac Upset Verified 05/25/21 09:05 Stomach cephalexin [From Keflex] AdvReac Nausea/Vom/ Verified 05/25/21 16:46 Diarrhea dicyclomine AdvReac GI upset Verified 05/25/21 16:46 NSAIDS (Non-Steroidal AdvReac GI bleeding Verified 05/25/21 16:46 Anti-Inflamma oxycodone [From Percocet] AdvReac Upset Verified 05/25/21 16:46 Stomach Penicillins AdvReac Rash Verified 05/25/21 16:46 Family History Mother Myocardial infarction Hypertension Heart disease History of coronary artery bypass graft Brother Hypertension History of coronary artery bypass graft Father Cancer esophageal Surgical History Aortocoronary bypass status (~10/09/02) H/O arthroscopic knee surgery History of partial knee replacement History of total hysterectomy History of tubal ligation Hx of bilateral breast reduction surgery Hx of cholecystectomy Presence of implantable cardioverter-defibrillator (ICD) (10/22/20) Social History Smoking Status: Never smoker alcohol intake: never substance use type: does not use caffeine: Yes Type: carbonated beverages and coffee Number of servings: 3 what type of physical activity do you participate in: other details: cardiac rehab frequency: 3-4 times per week duration: 45-60 minutes/day seatbelt use: always do you feel safe at home: Yes ROS ROS ED Constitutional Constitutional ED: Reports chills and subjective Eyes Eyes: Denies blurry vision or change in vision ENT ENT ED: Reports rhinorrhea; Denies sore throat Cardiovascular Cardiovascular: Reports chest pain and palpitations Respiratory/Chest Respiratory/Chest: Denies cough or dyspnea Gastrointestinal Gastrointestinal: Reports nausea; Denies abdominal pain or vomiting Genitourinary Genitourinary ED: Denies dysuria or hematuria Musculoskeletal Musculoskeletal: Reports back pain; Denies neck pain Integumentary Denies abscess or rash Neurologic Neurologic: Denies headache(s) or weakness Allergic/Immunologic Allergic/Immunologic ED: Denies mouth swelling or urticaria EXAM Physical Exam Const Vital Signs: 05/25/21 08:56 05/25/21 09:37 05/25/21 10:51 Temperature 97.6 F L Temperature Source Temporal Pulse Rate 105 H 93 Respiratory Rate 18 10 L Blood Pressure 107/58 L 105/44 L Blood Pressure Mean 74 64 Pulse Ox 98 92 Oxygen Delivery Method Room Air Room Air Room Air 05/25/21 10:52 05/25/21 12:25 Temperature Temperature Source Pulse Rate 92 108 H Respiratory Rate 16 18 Blood Pressure 105/44 L 112/56 L Blood Pressure Mean 64 74 Pulse Ox 100 100 Oxygen Delivery Method Room Air Room Air Positive well nourished, well developed and obese General Appearance ED: well developed and NAD Nutritional Appearance: obese HEENT normocephalic and atraumatic Eyes PERRL and EOMs intact bilaterally Neck supple and no JVD Chest Wall palpation of chest normal Resp normal respiratory effort and clear to auscultation bilaterally Effort and Inspection: Negative for respiratory distress Cardio regular rate, regular rhythm and no murmurs GI normal to inspection, nondistended, normoactive bowel sounds, soft to palpation, non-tender and non-distended Extremity normal to inspection General Extremety ED: Negative for edema or tenderness General Extremity: Negative for edema Neuro oriented x3, CN's II-XII intact bilaterally and no sensory deficits noted Sensorium / Orientation: awake and alert Motor Exam: strength 5/5 throughout Psych mental status grossly normal Heart Score History: Slightly/Non-Suspicious ECG: Nonspecific Repolarization Age: >/= 65 years Risk Factors: 1 or 2 Risk Factors Troponin: </= Normal Limit Score: 4 MDM MDM MDM Narrative Medical decision making narrative: EKG was obtained. On my interpretation, there is a normal sinus rhythm with a rate of 95. There is a left bundle branch block pattern noted. There are no acute ST or T wave changes. Portable 1 view chest x-ray was obtained. On my interpretation, lung pfeiffer show evidence of congestive heart failure. There is normal cardiac silhouette. Bony thorax is normal. Radiologist also interpreted the x-ray and agrees. CBC and basic metabolic profile were within normal limits. Initial high-sensitivity troponin was 18. PT with INR was therapeutic at 3.2. Repeat high-sensitivity troponin was 29. Case was discussed with the hospitalist. He will admit the patient to his service. Patient understood and was agreeable with the plan. All questions were answered. Lab Data Labs: Laboratory Results - last 24 hr 05/25/21 05/25/21 05/25/21 08:36 08:36 09:06 WBC 6.2 RBC 2.19 L Hgb 6.4 L Hct 22.3 L MCV 101.8 H MCH 29.2 MCHC 28.7 L RDW Std Deviation 81.3 H RDW Coeff of Maty 22.5 H Plt Count 175 MPV 14.3 H Neut % (Auto) Not Reportable Absolute Neuts (auto) 2.7 Absolute Lymphs (auto) 1.92 Total Counted 100 Neutrophils % (Manual) 43 L Band Neutrophils % 1 Lymphocytes % (Manual) 31 Monocytes % (Manual) 13 H Eosinophils % (Manual) 7 H Metamyelocytes % 1 Myelocytes % 4 H Nucleated RBCs/100 WBC 1 Diff Path Review May foll Toxic Vacuolation RARE Platelet Estimate ADEQUATE Polychromasia RARE Hypochromasia 3+ PT 32.1 H INR 3.2 Sodium 136 Potassium 5.0 Chloride 104 Carbon Dioxide 25.0 Anion Gap 7 BUN 35 H Creatinine 1.63 H Estim Creat Clear Calc 23.94 Est GFR (MDRD) Af Amer 39 L Est GFR (MDRD) Non-Af 32 L BUN/Creatinine Ratio 21.5 H Glucose 113 H Calcium 8.6 Troponin I High Sens 18 05/25/21 11:00 WBC RBC Hgb Hct MCV MCH MCHC RDW Std Deviation RDW Coeff of Maty Plt Count MPV Neut % (Auto) Absolute Neuts (auto) Absolute Lymphs (auto) Total Counted Neutrophils % (Manual) Band Neutrophils % Lymphocytes % (Manual) Monocytes % (Manual) Eosinophils % (Manual) Metamyelocytes % Myelocytes % Nucleated RBCs/100 WBC Diff Path Review Toxic Vacuolation Platelet Estimate Polychromasia Hypochromasia PT INR Sodium Potassium Chloride Carbon Dioxide Anion Gap BUN Creatinine Estim Creat Clear Calc Est GFR (MDRD) Af Amer Est GFR (MDRD) Non-Af BUN/Creatinine Ratio Glucose Calcium Troponin I High Sens 29 Radiography Chest X-Ray - ED: 1 View, Read by ED Physician, Read by Radiologist and CHF Diagnostic Testing: Clinical Impression(s) from Imaging Studies Chest X-Ray 05/25/21 09:45 IMPRESSION: Moderate congestive heart failure. Electronically Signed: Patricio Reynolds MD at 10:08 EDT Tel , Service support , EKG Initial EKG: Attestation: I personally reviewed and interpreted this EKG as follows: Interpretation: Sinus Rhythm (95), LBBB and Non-Specific ST Changes Treatment and Re-Evaluation Vital Sign Attestation:: Vital signs were reviewed prior to admission. They are stable. Discharge Plan Triage Chief Complaint: Chest Pain ED Provider: Ashkan Pereira Dx/Rx/DC Orders Clinical Impression: Chest pain, Systolic CHF, chronic Primary Care Provider: Osiel Arzola Disposition Disposition: Acute Care Hospital [facility] Discharge Date/Time: 05/25/21 13:13
[2021-05-25] MEDS: Methocarbamol 500 MG Tablet PO (18:11)
[2021-05-25] MEDS: Ranolazine 500 MG Tablet PO (18:11)
[2021-05-25] MEDS: Isosorbide Mononitrate 60 MG Tablet PO (18:11)
[2021-05-25] MEDS: Gabapentin 600 MG Tablet PO ×2 (18:11→21:23)
[2021-05-25] MEDS: Pantoprazole Sodium 40 MG Tablet PO (21:23)
[2021-05-25] MEDS: SACUBITRIL/VALSARTAN 49-51 MG TABLET 1 EACH PO (21:23)
[2021-05-25] MEDS: Menthol/Lanolin/Calamine/Znox 113 GM Tube 1 APPLIC TOPICAL (21:23)
[2021-05-26] VITALS (20 sets, daily range): BP systolic 99–132; BP diastolic 41–56; PULSE 90–118; RESP 16–18; TEMP 36.7–37; O2SAT 96–99
[2021-05-26] MEDS: Ondansetron 4 MG/2 ML Vial IV ×2 (00:59→08:36)
[2021-05-26] MEDS: 0.9% Saline Lock 10 ML Syringe IV ×3 (01:00→21:24)
[2021-05-26] MEDS: Methocarbamol 500 MG Tablet PO ×3 (05:28→21:33)
[2021-05-26 07:33] LABS: Hematocrit 19.6 % (37-47); Mean Corp Hgb Conc 30.6 g/dL (32-36); Mean Corpuscular Hgb 29.1 pg (27.0-32.0); POSITIVE COUNT YES; POSITIVE MORPHOLOGY YES; Platelet Count 148 K/mm3 (150-450); RBC Distribution Width CV 24.6 % (11.6-14.6); RBC Distribution Width SD 82.7 fl (35.1-43.9); Red Blood Count 2.06 M/mm3 (4.2-5.4)
[2021-05-26 07:37] LABS: Differential Indicated MANUAL DIFF
[2021-05-26 07:58] LABS: International Normalized Ratio 2.9; Prothrombin Time (Protime)PT. 29.3 SECONDS (11.7-14.9)
[2021-05-26 08:01] LABS: Anion Gap 6 (5-15); BUN 33 mg/dL (7-18); BUN/Creat Ratio 25.8 RATIO (10-20); Calcium,Total 8.8 mg/dL (8.5-10.1); Chloride 108 mmol/L (98-107); Creatinine, Serum 1.28 mg/dL (0.55-1.02); EST Glomerular Filtration Rate 42 mL/min (>60); Est Glom Filt Rate - Afr Amer 51 mL/min (>60); Estimated Creatinine Clearance 30.49 ml/min; Glucose 102 mg/dL (74-106); Potassium 4.6 mmol/L (3.5-5.1); Sodium Level 139 mmol/L (136-145)
--- NOTE | 2021-05-26 08:09 | PCM.PN.HOSP ---
Subjective Subjective Patient was seen and examined. She continues to have occasional chest discomfort. Repeat hemoglobin is 6.4. Transfuse 1 unit of packed RBC. Denied any dizziness. Complains of low back pain. History of chronic back pain. Objective Data Objective Data Vital Signs: Vital Signs Temp Pulse Resp BP Pulse Ox 98.6 F 95 18 121/55 H 97 05/26/21 02:48 05/26/21 07:50 05/26/21 02:48 05/26/21 02:48 05/26/21 02:48 Oxygen Delivery Method Room Air Weight: 87 kg Body Mass Index (BMI) 31.6 Intake & Output: Intake and Output for Last 24 Hours 05/24/21 05/25/21 05/26/21 23:59 23:59 23:59 Intake Total 1050 / 1050 Balance 1050 / 1050 Lab / Micro Data Result Diagrams: 05/26/21 17:44 05/26/21 06:20 Labs: Laboratory Results - last 24 hr 05/25/21 08:36: WBC 6.2, RBC 2.19 L, Hgb 6.4 L, Hct 22.3 L, MCV 101.8 H, MCH 29.2, MCHC 28.7 L, RDW Std Deviation 81.3 H, RDW Coeff of Maty 22.5 H, Plt Count 175, MPV 14.3 H, Neut % (Auto) Not Reportable, Absolute Neuts (auto) 2.7, Absolute Lymphs (auto) 1.92, Total Counted 100, Neutrophils % (Manual) 43 L, Band Neutrophils % 1, Lymphocytes % (Manual) 31, Monocytes % (Manual) 13 H, Eosinophils % (Manual) 7 H, Metamyelocytes % 1, Myelocytes % 4 H, Nucleated RBCs/100 WBC 1, Diff Path Review May foll, Toxic Vacuolation RARE, Platelet Estimate ADEQUATE, Polychromasia RARE, Hypochromasia 3+ 05/25/21 08:36: Sodium 136, Potassium 5.0, Chloride 104, Carbon Dioxide 25.0, Anion Gap 7, BUN 35 H, Creatinine 1.63 H, Estim Creat Clear Calc 23.94, Est GFR (MDRD) Af Amer 39 L, Est GFR (MDRD) Non-Af 32 L, BUN/Creatinine Ratio 21.5 H, Glucose 113 H, Calcium 8.6, Troponin I High Sens 18 05/25/21 09:06: PT 32.1 H, INR 3.2 05/25/21 11:00: Troponin I High Sens 29 05/25/21 13:00: Blood Type AB POSITIVE, Antibody Screen NEGATIVE, Crossmatch See Detail 05/25/21 14:35: Troponin I High Sens 29 05/26/21 06:20: WBC 5.0, RBC 2.06 L, Hgb 6.0 L*, Hct 19.6 L, MCV 95.1 D, MCH 29.1, MCHC 30.6 L D, RDW Std Deviation 82.7 H, RDW Coeff of Maty 24.6 H, Plt Count 148 L, MPV 14.0 H, Neut % (Auto) Not Reportable 05/26/21 06:20: PT 29.3 H, INR 2.9 05/26/21 06:20: Sodium 139, Potassium 4.6, Chloride 108 H, Carbon Dioxide 25.0, Anion Gap 6, BUN 33 H, Creatinine 1.28 H, Estim Creat Clear Calc 30.49, Est GFR (MDRD) Af Amer 51 L, Est GFR (MDRD) Non-Af 42 L, BUN/Creatinine Ratio 25.8 H, Glucose 102, Calcium 8.8 Radiography Diagnostic Testing: Radiology Impression Chest X-Ray 05/25/21 09:45 IMPRESSION: Moderate congestive heart failure. Electronically Signed: Patricio Reynolds MD at 10:08 EDT Tel , Service support , Physical Exam Narrative Physical exam: General: Alert, Oriented x3, Cooperative, No apparent distress, Well developed, on 2L oxygen HEENT: Atraumatic Oral: Moist Mucosa Neck: Supple Lungs: Diminished to auscultation Cardiovascular: HS I+II, regular, no murmurs Abdomen: Bowel Sounds Present, Soft, Non Tender Extremities: Bilateral edema+1 Assessment & Plan Assessment/Plan (1) Anemia: QUALIFIERS: Anemia type: iron deficiency Iron deficiency anemia type: chronic blood loss Qualified Code(s): D50.0 - Iron deficiency anemia secondary to blood loss (chronic) (2) Chest pain: QUALIFIERS: Chest pain type: other chest pain Qualified Code(s): R07.89 - Other chest pain (3) NIKHIL (acute kidney injury): (4) Benign hypertension: (5) Obesity: QUALIFIERS: Obesity type: due to excess calories Obesity classification: adult class 1 (BMI 30 - 34.9) Serious obesity comorbidity presence: with serious comorbidity Body mass index: BMI 31.0-31.9 Qualified Code(s): E66.09 - Other obesity due to excess calories; Z68.31 - Body mass index [BMI] 31.0-31.9, adult (6) Diabetes mellitus, type 2: QUALIFIERS: Diabetes mellitus manager long term care insulin use: without custodial use Diabetes mellitus complication status: with other specified complication Qualified Code(s): E11.69 - Type 2 diabetes mellitus with other specified complication PLAN: 1. Chest pain secondary to acute symptomatic anemia Patient with no acute ST changes Will continue to monitor 2. Acute severe symptomatic anemia secondary to acute GI bleed Hemoglobin is 6.4, transfused 2 units of packed RBCs Trend H&H Hold Coumadin, 3. Acute GI bleed, stool for occult blood is positive, history of GI bleed We will switch to IV PPI, GI consult 4. Rest of chronic medical conditions including myeloproliferative/myelodysplastic syndrome/chronic heart failure with reduced EF, EF 25%/coronary artery disease status post CABG/hypertension/hyperlipidemia/history of DVT, on Coumadin Continue to hold Coumadin Repeat INR in a.m. Charges/Coding Visit Charges Inpatient E&M: 57488 [facility] Hosp L3
[2021-05-26 08:14] LABS: Eosinophil 1 % (0-5); Lymphocyte 26 % (19-41); Metamyelocyte 14 % (0-1); Monocyte 17 % (0-10); Neutrophil-Band 3 % (0-5); Neutrophil-Segmented 39 % (47-70); Total Cells Counted 100 (MANUAL DIFF)
[2021-05-26 08:15] LABS: Anisocytosis 2+; Hypochromasia 2+; Platelet Estimate ADEQUATE (ADEQ)
[2021-05-26 08:16] LABS: Absolute Lymphocyte Count 1.29 X10^3/uL (0.83-4.51); Absolute Neutrophil Count 2.1 X10^3/uL (2.0-7.7); Lymphocyte # 1.29 X10^3/ul (0.83-4.51); Neutrophil # 2.09 X10^3/uL (2.7-7.7)
[2021-05-26] MEDS: Menthol/Lanolin/Calamine/Znox 113 GM Tube 1 APPLIC TOPICAL ×2 (08:31→21:35)
[2021-05-26] MEDS: Pantoprazole Sodium 40 MG Tablet PO (08:31)
[2021-05-26] MEDS: SACUBITRIL/VALSARTAN 49-51 MG TABLET 1 EACH PO ×2 (08:31→21:31)
[2021-05-26] MEDS: Cyanocobalamin 500 MCG Tablet PO (08:32)
[2021-05-26] MEDS: Isosorbide Mononitrate 60 MG Tablet PO (08:32)
[2021-05-26] MEDS: Gabapentin 600 MG Tablet PO ×4 (08:32→21:31)
[2021-05-26] MEDS: Ranolazine 500 MG Tablet PO ×2 (08:32→21:32)
[2021-05-26] MEDS: Calcium Carb/Vitamin D 1 TABLET Tablet PO (08:32)
[2021-05-26] MEDS: Metoprolol(XL)Succ 25 MG Tablet 12.5 MG PO (08:40)
--- NOTE | 2021-05-26 09:43 | PCS.PANDOC ---
PANDEMIC DOCUMENTATION INITIATED: Date: 03/31/2021 Time: 190
--- NOTE | 2021-05-26 11:20 | CASEMGMT ---
RN AVELINA Face to Face with patient for initial transition planning/care coordination assessment. RN CM introduced self and role at [facility]. Patient lying in bed, alert and oriented. Patient willing to participate in assessment and is able to answer all questions appropriately. Care providers, pharmacy, and demographics verified. Patient wishes to discharge home with resumption of HHC with [facility]. Patient states she has no further needs or concerns at this time. CM to follow for discharge planning needs that may arise. PCP: Dariusz Specialists: Harshad template cutter Preferred Pharmacy: [facility] Insurance: Return [facility] Prescription Benefit: yes Living Will/HPOA: yes, daughter Michelle Diehl LNOK: daughter, Living Arrangements: Patient lives with and daughter in a single story home with 2 steps to enter the home. Patient states she is independent for self care. Transportation: daughter DME/HHC: Patient has shower chair, BSC, cane, walker, wheelchair, and oxygen concentrator at home. Patient states she is active with [facility]. Disposition Plan: Patient to discharge home with [facility], family support, and follow-up plans in place. Mercy ANNE, RN, CM
[2021-05-26 12:52] LABS: Pathologist Review Reviewed
[2021-05-26] MEDS: Furosemide 40 MG/4 ML Vial IV (12:55)
[2021-05-26 13:19] LABS: Pathologist Review Reviewed
[2021-05-26 14:14] LABS: Mean Corpuscular Volume 95.1 fL (81-99)
[2021-05-26] MEDS: Acetaminophen 325 MG Tablet 650 MG PO (14:25)
[2021-05-26] MEDS: proCHLORPERazine 10 MG/2 ML Vial IV (14:25)
--- NOTE | 2021-05-26 15:27 | CHAPLAIN ---
Type of Pastoral Visit _x__ Initial Visit ___ Follow-up Visit ___ On-call Visit ___ General Patient Visit ___ Spiritual Assessment ___ Family Conference ___ Bereavement ___ Rapid Response ___ Code Blue ___ Other (describe below) Pastoral Care Referral From _x__ Patient ___ Family ___ Nurse ___ Physician ___ Drupal Php Developer ___ Methods Examiner ___ Other (describe below) Sacrament/Intervention _x__ Active listening ___ Anointing ___ Faith ___ Bereavement ___ Communion ___ Kimberly exploration ___ ___ Life review _x__ Prayer ___ Reconciliation ___ Sacrament of Sick _x__ Supportive presence ___ Wedding ___ Other (describe below) Pastoral Comments patient expresses desire to know cause of her bleeding and not have to come here again; family member is with her; pt is open to prayer and presence of this labor and delivery registered nurse
[2021-05-26] MEDS: Folic Acid 1 MG Tablet PO (17:12)
[2021-05-26] MEDS: Nitrofurantoin Macrocrystals 100 MG Capsule PO (17:12)
[2021-05-26] MEDS: oxyCODONE 5 MG Tablet PO (17:14)
[2021-05-26 18:11] LABS: Hematocrit 26.6 % (37-47); Hemoglobin 8.4 g/dL (12.0-15.0)
--- NOTE | 2021-05-26 18:12 | CON.PCM.GI_ITS ---
HPI Consult Data Date of Consult: 05/26/21 HPI Narrative HPI Narrative: RIP LORENZO, is a 80 F who presents with chest pain. Her vascular work-up did not reveal any signs of acute coronary syndrome. There is also no coronary pulmonary disease. She did complain of some nausea without vomiting and had some midepigastric pain prior to coming to the hospital. She had a upper and lower endoscopy in . Her upper endoscopy did not reveal any abnormalities. Her lower endoscopy revealed some mild diverticular disease and a benign polyp that was removed. She also has day is and history of DVT PE on Coumadin therapy. She had multiple episodes of dark stools. She was discovered to have a hemoglobin of 6. Her baseline hemoglobin runs in between 10 and 11. She received 2 units of packed red blood cells. Her chest pain is better. I was asked to see her for possible upper GI bleed. [facility] Medical History (Updated 05/26/21 @ 18:[address] Cortez Friend, DO) Abnormal stress test Atherosclerosis of coronary artery bypass graft(s), unspecified, with other forms of angina pectoris Atherosclerotic heart disease of [place] coronary artery without angina pectoris Benign hypertension Diabetes mellitus, type 2 Diverticulitis GERD (gastroesophageal reflux disease) History of DVT (deep vein thrombosis) History of esophageal stricture History of pulmonary embolism Hyperlipidemia Ischemic cardiomyopathy LBBB (left bundle branch block) Obesity Systolic CHF, chronic Thrombocytopenia Thromboembolic disorder Home Medications calcium carbonate-vitamin D3 1 each PO DAILY 03/08/17 [History Last Taken 05/24/21] cyanocobalamin (vitamin B-12) 500 mcg PO DAILY@0800 12/07/17 [History Last Taken 05/24/21] nitroglycerin 0.4 mg sublingual tablet 0.4 mg SL Q5-15M PRN #25 tablet 12/12/19 [Rx Last Taken Unknown] folic acid 1 mg PO DINNER 11/10/20 [History Last Taken 05/24/21 18:00] methocarbamol 500 mg tablet 500 mg PO TID tablet 11/26/20 [History Last Taken 05/24/21] omeprazole 40 mg capsule,delayed release 40 mg PO BID cap 11/26/20 [History Last Taken 05/24/21 18:00] ondansetron 4 mg disintegrating tablet 4 mg PO Q8H PRN tablet 11/26/20 [History Last Taken 05/25/21 06:00] potassium chloride 10 mEq capsule,extended release 10 meq PO DAILY cap 11/26/20 [History Last Taken 05/24/21] isosorbide mononitrate 60 mg tablet,extended release 24 hr 60 mg PO DAILY #90 tablet 12/02/20 [Rx Last Taken 05/24/21] gabapentin 600 mg tablet 600 mg PO 4X/DAY tab 12/11/20 [History Last Taken 05/24/21] ranolazine 500 mg tablet,extended release,12 hr 500 mg PO BID #180 tab 12/23/20 [Rx Last Taken 05/24/21] acetaminophen 325 mg capsule 650 mg PO Q8H PRN cap 01/06/21 [History Last Taken Unknown] diphenhydramine HCl 25 mg capsule 25 mg PO QHS PRN #1 cap 01/06/21 [Rx Last Taken 05/24/21] lactobacillus combination no.9 4 billion cell capsule 4,000 mmu cells PO DAILY 01/06/21 [History Last Taken Unknown] buprenorphine 1 patch TRANSDERMAL SA 01/21/21 [History Last Taken 05/24/21] hydrocodone-acetaminophen 1 tab PO Q6H PRN PRN 3 Days #12 tablet 01/21/21 [Rx Last Taken Unknown] nitrofurantoin monohyd/m-cryst [Macrobid] 100 mg PO DAILY@1800 01/21/21 [History Last Taken 05/24/21] spironolactone 25 mg tablet 25 mg PO DAILY #30 tab 04/10/21 [Rx Last Taken 1 ] sacubitril 49 mg-valsartan 51 mg tablet 1 tab PO BID #60 tab 04/16/21 [Rx Last Taken 05/24/21] furosemide 40 mg tablet 60 mg PO DAILY tab 04/17/21 [History Last Taken 05/24/21] metoprolol succinate [Toprol XL] 12.5 mg PO DAILY 05/25/21 [History Last Taken 05/24/21] rosuvastatin 40 mg PO QHS 05/25/21 [History Last Taken 05/24/21 20:00] warfarin 4 mg PO DAILY 05/25/21 [History Last Taken 05/24/21 18:00] Allergy/AdvReac Type Severity Reaction Status Date / Time doxycycline Allergy Mild Swelling Verified 05/25/21 16:46 allopurinol Allergy Unknown Angioedema Verified 05/25/21 16:46 Sulfa (Sulfonamide Allergy Rash Verified 05/25/21 16:46 Antibiotics) tetracycline [Tetracycline] Allergy difficulty Verified 05/25/21 16:46 breathing, rash metronidazole [From Flagyl] AdvReac Intermediate GI severe Verified 05/25/21 16:46 nausea WILDA Inhibitors AdvReac cough Verified 05/25/21 16:46 acetaminophen [From Percocet] AdvReac Upset Verified 05/25/21 09:05 Stomach cephalexin [From Keflex] AdvReac Nausea/Vom/ Verified 05/25/21 16:46 Diarrhea dicyclomine AdvReac GI upset Verified 05/25/21 16:46 NSAIDS (Non-Steroidal AdvReac GI bleeding Verified 05/25/21 16:46 Anti-Inflamma oxycodone [From Percocet] AdvReac Upset Verified 05/25/21 16:46 Stomach Penicillins AdvReac Rash Verified 05/25/21 16:46 Family History Mother Myocardial infarction Hypertension Heart disease History of coronary artery bypass graft Brother Hypertension History of coronary artery bypass graft Father Cancer esophageal Surgical History Aortocoronary bypass status (~10/09/02) H/O arthroscopic knee surgery History of partial knee replacement History of total hysterectomy History of tubal ligation Hx of bilateral breast reduction surgery Hx of cholecystectomy Presence of implantable cardioverter-defibrillator (ICD) (10/22/20) Social History Smoking Status: Never smoker alcohol intake: never substance use type: does not use caffeine: Yes Type: carbonated beverages and coffee Number of servings: 3 what type of physical activity do you participate in: other details: cardiac rehab frequency: 3-4 times per week duration: 45-60 minutes/day seatbelt use: always do you feel safe at home: Yes ROS Review of Systems ROS Unobtainable: other Constitutional Constitutional: Denies fatigue, fever(s), poor appetite, weight gain or weight loss ENT HEENT: Denies mouth lesions Cardiovascular Cardiovascular: Denies abdominal bloating, abdominal edema or abdominal pain Respiratory/Chest Respiratory/Chest: Denies change in mental status, change in phlegm color, chest congestion or chest tightness Gastrointestinal Gastrointestinal: Reports melena and nausea; Denies belching, bloating, change in bowel habits, change in stool character, chewing difficulty, coffee ground emesis, constipation, cramping, diarrhea, dyspepsia, dysphagia, early satiety, excessive flatus, fecal incontinence, heartburn, hematemesis, hematochezia, hemorrhoids, loose stools, odynophagia, rectal bleeding, tenesmus, vomiting or weight changes Genitourinary Genitourinary: Denies abdominal discomfort, burning urination or itching Musculoskeletal Musculoskeletal: Reports as per HPI; Denies muscle weakness or myalgias Integumentary Integumentary: Denies jaundice Neurologic Neurologic: Denies lack of coordination or weakness Psychiatric Psychiatric: Denies confusion, depression, memory loss, mood swings, paranoia or suicidal ideation Endocrine Endocrinology: Denies systems reviewed and no addt'l complaints, except as documented Hematologic/Lymphatic Hematologic/Lymphatic: Denies anemia, easy bleeding, easy bruising or lymphadenopathy Allergic/Immunologic Allergic/Immunologic: Denies systems reviewed and no addt'l complaints, except as documented Physical Exam Const alert General Appearance: cooperative Orientation / Consciousness: oriented to person HEENT hearing grossly normal bilaterally Head and Scalp: normal to inspection Face and Sinus: face symmetric Nose: external nose normal Mouth: oral and palatal mucosa normal Eyes conjunctivae normal General Eye: normal appearance of both eyes Neck full ROM General: normal visual inspection Lymph Lymphatic: no lymphadenopathy noted Chest inspection of chest normal and palpation of chest normal Chest: symmetrical chest wall rise Resp normal respiratory effort Effort and Inspection: able to speak in complete sentences Cardio regular rate GI non-distended Percussion: normal to percussion Rectal Exam: deferred Neuro Speech: speech normal Gait (Neuro): normal gait Lab / Micro Data Result Diagrams: 05/26/21 17:44 05/26/21 06:20 Labs: Laboratory Results - last 24 hr 05/25/21 08:36: Diff Path Review Reviewed 05/25/21 13:00: Blood Type AB POSITIVE, Antibody Screen NEGATIVE, Crossmatch See Detail 05/25/21 13:00: Crossmatch See Detail 05/26/21 06:20: WBC 5.0, RBC 2.06 L, Hgb 6.0 L*, Hct 19.6 L, MCV 95.1 D, MCH 29.1, MCHC 30.6 L D, RDW Std Deviation 82.7 H, RDW Coeff of Maty 24.6 H, Plt Count 148 L, MPV 14.0 H, Neut % (Auto) Not Reportable, Absolute Neuts (auto) 2.1, Absolute Lymphs (auto) 1.29, Total Counted 100, Neutrophils % (Manual) 39 L , Band Neutrophils % 3, Lymphocytes % (Manual) 26, Monocytes % (Manual) 17 H, Eosinophils % (Manual) 1, Metamyelocytes % 14 H, Diff Path Review Reviewed, Platelet Estimate ADEQUATE, Hypochromasia 2+, Anisocytosis 2+ 05/26/21 06:20: PT 29.3 H, INR 2.9 05/26/21 06:20: Sodium 139, Potassium 4.6, Chloride 108 H, Carbon Dioxide 25.0, Anion Gap 6, BUN 33 H, Creatinine 1.28 H, Estim Creat Clear Calc 30.49, Est GFR (MDRD) Af Amer 51 L, Est GFR (MDRD) Non-Af 42 L, BUN/Creatinine Ratio 25.8 H, Glucose 102, Calcium 8.8 05/26/21 17:44: Hgb 8.4 L, Hct 26.6 L Micro: Microbiology 05/26/21 13:35 Stool Stool Occult Blood (DEMETRIUS) - Final Occult Blood Positive Assessment & Plan Assessment/Plan (1) Anemia: PLAN: The differential diagnosis for her anemia is acute blood loss anemia and setting of anticoagulation in a older woman would be an AVM, peptic ulcer disease, duodenal ulcer, Pascale-Hopper tear from her nausea and vomiting resulting in chest pain. She should undergo upper endoscopy for evaluation of her upper GI tract with a pediatric colonoscope to view the entire duodenum. (2) History of DVT (deep vein thrombosis): PLAN: I will check INR. (3) Thrombocytopenia: PLAN: Her platelet count could be down secondary to nutritional deficit, acute phase reactant or portal hypertension. (4) Diverticulitis: PLAN: I will start her on clindamycin for diverticulitis. Charges/Coding Visit Charges Inpatient E&M: 41250 Init Hosp L3
[2021-05-26] MEDS: Clindamycin HCl 150 MG Capsule 300 MG PO (21:30)
[2021-05-26 22:57] LABS: Hematocrit 25.9 % (37-47); Hemoglobin 8.2 g/dL (12.0-15.0)
[2021-05-27] VITALS (19 sets, daily range): BP systolic 101–144; BP diastolic 48–74; PULSE 85–114; RESP 16–18; TEMP 36.2–36.7; O2SAT 95–99; BMI 31.6
[2021-05-27 07:09] LABS: Hematocrit 25.1 % (37-47); Hemoglobin 7.9 g/dL (12.0-15.0)
[2021-05-27 07:14] LABS: International Normalized Ratio 2.4; Prothrombin Time (Protime)PT. 25.6 SECONDS (11.7-14.9)
[2021-05-27 07:43] LABS: ALB/GLOB Ratio 0.9 RATIO (0.9-2.4); AST(SGOT) 17 U/L (15-37); Alanine Aminotransfer ALT/SGPT 12 U/L (13-56); Albumin, Serum 2.6 g/dL (3.2-5.0); Alkaline Phosphatase 38 U/L (45-117); Anion Gap 9 (5-15); BUN 34 mg/dL (7-18); BUN/Creat Ratio 31.2 RATIO (10-20); Calcium,Total 8.6 mg/dL (8.5-10.1); Chloride 107 mmol/L (98-107); Creatinine, Serum 1.09 mg/dL (0.55-1.02); EST Glomerular Filtration Rate 51 mL/min (>60); Est Glom Filt Rate - Afr Amer 62 mL/min (>60); Estimated Creatinine Clearance 35.81 ml/min; Globulin 2.9 g/dL (2.2-4.2); Glucose 95 mg/dL (74-106); Potassium 4.1 mmol/L (3.5-5.1); Protein, Total 5.5 g/dL (6.4-8.2); Sodium Level 141 mmol/L (136-145)
[2021-05-27] MEDS: Metoprolol(XL)Succ 25 MG Tablet 12.5 MG PO (08:36)
[2021-05-27] MEDS: Isosorbide Mononitrate 60 MG Tablet PO (08:36)
[2021-05-27] MEDS: SACUBITRIL/VALSARTAN 49-51 MG TABLET 1 EACH PO ×2 (08:36→21:19)
[2021-05-27] MEDS: Gabapentin 600 MG Tablet PO ×3 (08:36→21:18)
[2021-05-27] MEDS: Ranolazine 500 MG Tablet PO ×2 (08:36→21:19)
[2021-05-27] MEDS: Furosemide 20 MG Tablet 60 MG PO (08:36)
[2021-05-27] MEDS: Clindamycin HCl 150 MG Capsule 300 MG PO ×3 (08:37→21:18)
[2021-05-27] MEDS: Calcium Carb/Vitamin D 1 TABLET Tablet PO (08:37)
[2021-05-27] MEDS: Cyanocobalamin 500 MCG Tablet PO (08:37)
[2021-05-27] MEDS: Menthol/Lanolin/Calamine/Znox 113 GM Tube 1 APPLIC TOPICAL ×2 (08:38→21:20)
[2021-05-27] MEDS: Ondansetron 4 MG/2 ML Vial IV (08:47)
[2021-05-27 08:55] LABS: Magnesium 1.9 mg/dL (1.6-2.6)
--- NOTE | 2021-05-27 12:58 | EKG12_ITS ---
Test Reason : PRE OP Blood Pressure : / mmHG Vent. Rate : 099 BPM Atrial Rate : 099 BPM P-R Int : 168 ms QRS Dur : 130 ms QT Int : 362 ms P-R-T Axes : 055 -22 008 degrees QTc Int : 464 ms Sinus rhythm with Premature supraventricular complexes Non-specific intra-ventricular conduction block Abnormal ECG When compared with ECG of 25-MAY-2021 09:38, Premature supraventricular complexes are now Present Confirmed by LINDSAY YADAV, LEONOR ([id number]), material expeditor RAINER EUGENE ([id number]) on 06/04/2021 10:07:26 AM Referred By: ELLIOTT Confirmed By:LEONOR MONTOYA MD
[2021-05-27 13:35] LABS: Troponin-I HS 20 pg/mL (3.0-54.0)
[2021-05-27] MEDS: 0.9% Normal Saline (Pres. free 10 ML Vial (14:42)
[2021-05-27] MEDS: Epinephrine (1 mg/ml) 1 MG/ML VIAL (14:42)
--- NOTE | 2021-05-27 14:48 | OP.EGD_ITS ---
Patient Name: Brittany Richards Procedure Date: 05/27/2021 2:18 PM Date of : 1940 Age: 80 Procedure: Upper GI endoscopy Indications: Melena Providers: Diego Bender DO Medicines: Propofol per Anesthesia Patient Profile: This is an 80 year old female. Refer to note in patient chart for documentation of history and physical. Patient has symptoms of acute nausea. The symptoms first began one week ago. She is status post colonoscopy (normal) and EGD (normal) one year ago. Complications: No immediate complications. Procedure: Pre-Anesthesia Assessment: - Prior to the procedure, a History and Physical was performed, and patient medications and allergies were reviewed. The patient is competent. The risks and benefits of the procedure and the sedation options and risks were discussed with the patient. All questions were answered and informed consent was obtained. Patient identification and proposed procedure were verified by the physician in the pre-procedure area. Mental Status Examination: alert and oriented. Airway Examination: normal oropharyngeal airway and neck mobility. Respiratory Examination: clear to auscultation. CV Examination: normal. Prophylactic Antibiotics: The patient does not require prophylactic antibiotics. Prior Anticoagulants: The patient has taken no previous anticoagulant or antiplatelet agents. ASA Grade Assessment: II - A patient with mild systemic disease. After reviewing the risks and benefits, the patient was deemed in satisfactory condition to undergo the procedure. The anesthesia plan was to use moderate sedation / analgesia (conscious sedation). Immediately prior to administration of medications, the patient was re-assessed for adequacy to receive sedatives. The heart rate, respiratory rate, oxygen saturations, blood pressure, adequacy of pulmonary ventilation, and response to care were monitored throughout the procedure. The physical status of the patient was re-assessed after the procedure. After obtaining informed consent, the endoscope was passed under direct vision. Throughout the procedure, the patient's blood pressure, pulse, and oxygen saturations were monitored continuously. The Colonoscope was introduced through the mouth, and advanced to the fourth part of duodenum. The upper GI endoscopy was accomplished without difficulty. The patient tolerated the procedure well. Moderate Sedation: Moderate (conscious) sedation was personally administered by an anesthesia professional. The following parameters were monitored: oxygen saturation, heart rate, blood pressure, and response to care. Total physician intraservice time was 15 minutes. Moderate (conscious) sedation was personally administered by an anesthesia professional. The following parameters were monitored: oxygen saturation, heart rate, blood pressure, and response to care. Total physician intraservice time was 15 minutes. Scope In: 2:26:14 PM Scope Out: 2:40:50 PM Total Procedure Duration Time 0 hours 14 minutes 36 seconds Findings: The middle third of the esophagus was significantly tortuous. A large paraesophageal hernia was found. Three 5 mm stigmata of recent bleeding angiodysplastic lesions were found in the stomach. Coagulation for hemostasis using heater probe was successful. Area was successfully injected with 3 mL of a 1:10,000 solution of epinephrine for hemostasis. Estimated blood loss was minimal. Three 5 mm angiodysplastic lesions with bleeding were found in the second portion of the duodenum. Coagulation for hemostasis using heater probe was successful. Estimated blood loss was minimal. Impression: - Tortuous esophagus. - Large paraesophageal hernia. - Three recently bleeding angiodysplastic lesions in the stomach. Treated with a heater probe. Injected. - Three bleeding angiodysplastic lesions in the duodenum. Treated with a heater probe. - No specimens collected. Recommendation: - Return patient to [facility] for ongoing care. - Full liquid diet. - Continue present medications. - Await pathology results. - Repeat upper endoscopy in 1 year for surveillance. - Return to GI office in 2 weeks. Procedure Code(s): --- Professional --- 06006, Esophagogastroduodenoscopy, flexible, transoral; with control of bleeding, any method CPT copyright 2017 [employer]. All rights reserved. The codes documented in this report are preliminary and upon credentialer review may be revised to meet current compliance requirements. Diego Bender DO 05/27/2021 2:47:47 PM This report has been signed electronically. Number of Addenda: 1 Note Initiated On: 05/27/2021 2:18 PM Addendum Number: 1 Addendum Date: 04/16/2022 4:32:23 PM MAC was used instead of moderate sedation for this patient. Diego Bender DO 04/16/2022 4:32:27 PM This report has been signed electronically.
[2021-05-27] MEDS: Folic Acid 1 MG Tablet PO (15:43)
[2021-05-27] MEDS: Methocarbamol 500 MG Tablet PO ×2 (15:43→21:19)
[2021-05-27] MEDS: Acetaminophen 325 MG Tablet 650 MG PO ×2 (15:48→22:07)
--- NOTE | 2021-05-27 15:55 | PN.HOSP_ITS ---
Subjective Subjective Follow-up on severe anemia/acute GI bleed: Patient was seen and examined. She denied any new complaints. She is going for EGD today. Objective Data Objective Data Vital Signs: Vital Signs Temp Pulse Resp BP Pulse Ox 97.9 F 99 16 121/68 H 98 05/27/21 15:39 05/27/21 15:39 05/27/21 15:39 05/27/21 15:39 05/27/21 15:39 Oxygen Delivery Method Room Air Weight: 87.2 kg Body Mass Index (BMI) 31.6 Intake & Output: Intake and Output for Last 24 Hours 05/25/21 05/26/21 05/27/21 23:59 23:59 23:59 Intake Total 1050 / 1050 1510 / 1510 110 / 110 Output Total 900 / 900 850 / 850 Balance 1050 / 1050 610 / 610 -740 / -740 Lab / Micro Data Result Diagrams: 05/27/21 06:50 05/27/21 06:50 Labs: Laboratory Results - last 24 hr 05/25/21 13:00: Crossmatch See Detail 05/26/21 17:44: Hgb 8.4 L, Hct 26.6 L 05/26/21 22:45: Hgb 8.2 L, Hct 25.9 L 05/27/21 06:50: Sodium 141, Potassium 4.1, Chloride 107, Carbon Dioxide 25.0, Anion Gap 9, BUN 34 H, Creatinine 1.09 H, Estim Creat Clear Calc 35.81, Est GFR (MDRD) Af Amer 62, Est GFR (MDRD) Non-Af 51 L, BUN/Creatinine Ratio 31.2 H, Glucose 95, Calcium 8.6, Total Bilirubin 0.60, AST 17, ALT 12 L, Alkaline Phosphatase 38 L, Total Protein 5.5 L, Albumin 2.6 L, Globulin 2.9, Albumin/Globulin Ratio 0.9 05/27/21 06:50: Hgb 7.9 L, Hct 25.1 L 05/27/21 06:50: PT 25.6 H, INR 2.4 05/27/21 06:50: Magnesium 1.9 05/27/21 06:50: Troponin I High Sens 20 Micro: Microbiology 05/26/21 13:35 Stool Stool Occult Blood (DEMETRIUS) - Final Occult Blood Positive Physical Exam Narrative Physical exam: General: Alert, Oriented x3, Cooperative, No apparent distress, Well developed, on 2L oxygen HEENT: Atraumatic Oral: Moist Mucosa Neck: Supple Lungs: Diminished to auscultation Cardiovascular: HS I+II, regular, 3/6 holosystolic murmur/ejection murmur Abdomen: Bowel Sounds Present, Soft, Non Tender Extremities: Bilateral edema+1 Assessment & Plan Assessment/Plan (1) Anemia: QUALIFIERS: Anemia type: iron deficiency Iron deficiency anemia type: chronic blood loss Qualified Code(s): D50.0 - Iron deficiency anemia secondary to blood loss (chronic) (2) Chest pain: QUALIFIERS: Chest pain type: other chest pain Qualified Code(s): R07.89 - Other chest pain (3) NIKHIL (acute kidney injury): (4) Benign hypertension: (5) Obesity: QUALIFIERS: Obesity type: due to excess calories Obesity classification: adult class 1 (BMI 30 - 34.9) Serious obesity comorbidity presence: with serious comorbidity Body mass index: BMI 31.0-31.9 Qualified Code(s): E66.09 - Other obesity due to excess calories; Z68.31 - Body mass index [BMI] 31.0-31.9, adult (6) Diabetes mellitus, type 2: QUALIFIERS: Diabetes mellitus complication status: with other specified complication Diabetes mellitus correction insulin use: without intermodal dispatcher use Qualified Code(s): E11.69 - Type 2 diabetes mellitus with other specified complication PLAN: 1. Acute chest pain secondary to acute symptomatic anemia, resolved 2. Acute severe symptomatic anemia secondary to acute GI bleed Hemoglobin is 7.9, status post 3 units of packed RBC in this admission Patient is going for EGD 3. Acute GI bleed, stool for occult blood is positive, history of GI bleed Continue on IV PPI, GI consulted, going for EGD 4. Rest of chronic medical conditions including myeloproliferative/myelody splastic syndrome/chronic heart failure with reduced EF, EF 25%/coronary artery disease status post CABG/hypertension/hyperlipidemia/history of DVT, on Coumadin Continue to hold Coumadin INR is 1.1 Charges/Coding Visit Charges Inpatient E&M: 90990 Subs Hosp L3
[2021-05-27] MEDS: Nitrofurantoin Macrocrystals 100 MG Capsule PO (16:39)
[2021-05-27] MEDS: oxyCODONE 5 MG Tablet PO (17:55)
[2021-05-27] MEDS: 0.9% Saline Lock 10 ML Syringe IV (22:10)
[2021-05-28] VITALS (17 sets, daily range): BP systolic 82–137; BP diastolic 47–77; PULSE 76–96; RESP 14–18; TEMP 36.3–37.2; O2SAT 95–100
[2021-05-28] MEDS: oxyCODONE 5 MG Tablet PO ×2 (01:19→20:00)
[2021-05-28] MEDS: Ondansetron 4 MG/2 ML Vial IV (05:53)
[2021-05-28] MEDS: Methocarbamol 500 MG Tablet PO ×3 (05:54→21:26)
[2021-05-28 07:23] LABS: Hematocrit 25.1 % (37-47); Hemoglobin 7.7 g/dL (12.0-15.0); Mean Corp Hgb Conc 30.7 g/dL (32-36); Mean Corpuscular Hgb 28.4 pg (27.0-32.0); Mean Corpuscular Volume 92.6 fL (81-99); Mean Platelet Vol. 13.6 fl (6.2-12.0); POSITIVE COUNT YES; POSITIVE MORPHOLOGY YES; Platelet Count 142 K/mm3 (150-450); RBC Distribution Width CV 21.2 % (11.6-14.6); RBC Distribution Width SD 66.4 fl (35.1-43.9); Red Blood Count 2.71 M/mm3 (4.2-5.4); White Blood Count 4.7 K/mm3 (4.4-11.0)
[2021-05-28 07:33] LABS: Differential Indicated MANUAL DIFF
[2021-05-28 07:55] LABS: ALB/GLOB Ratio 0.9 RATIO (0.9-2.4); AST(SGOT) 19 U/L (15-37); Alanine Aminotransfer ALT/SGPT 12 U/L (13-56); Albumin, Serum 2.8 g/dL (3.2-5.0); Alkaline Phosphatase 42 U/L (45-117); Anion Gap 5 (5-15); BUN 29 mg/dL (7-18); BUN/Creat Ratio 27.1 RATIO (10-20); Calcium,Total 8.8 mg/dL (8.5-10.1); Chloride 105 mmol/L (98-107); Creatinine, Serum 1.07 mg/dL (0.55-1.02); EST Glomerular Filtration Rate 52 mL/min (>60); Est Glom Filt Rate - Afr Amer 63 mL/min (>60); Estimated Creatinine Clearance 36.48 ml/min; Glucose 105 mg/dL (74-106); Potassium 3.7 mmol/L (3.5-5.1); Protein, Total 5.8 g/dL (6.4-8.2); Sodium Level 137 mmol/L (136-145)
[2021-05-28] MEDS: Cyanocobalamin 500 MCG Tablet PO (08:08)
[2021-05-28] MEDS: Calcium Carb/Vitamin D 1 TABLET Tablet PO (08:08)
[2021-05-28 08:30] LABS: Anisocytosis 2+; Eosinophil 4 % (0-5); Lymphocyte 45 % (19-41); Macrocytosis 1+; Metamyelocyte 4 % (0-1); Microcytosis 1+; Monocyte 9 % (0-10); Myelocyte 6 % (0-0); Neutrophil-Band 6 % (0-5); Neutrophil-Segmented 26 % (47-70); Platelet Estimate ADEQUATE (ADEQ); Total Cells Counted 100 (MANUAL DIFF)
[2021-05-28 08:31] LABS: Absolute Lymphocyte Count 2.12 X10^3/uL (0.83-4.51); Absolute Neutrophil Count 1.5 X10^3/uL (2.0-7.7)
[2021-05-28 08:32] LABS: Reactive Lymphocyte 1+
[2021-05-28] MEDS: Menthol/Lanolin/Calamine/Znox 113 GM Tube 1 APPLIC TOPICAL ×2 (09:56→20:01)
[2021-05-28] MEDS: SACUBITRIL/VALSARTAN 49-51 MG TABLET 1 EACH PO ×2 (10:18→21:26)
[2021-05-28] MEDS: Ranolazine 500 MG Tablet PO ×2 (10:18→21:26)
[2021-05-28] MEDS: Isosorbide Mononitrate 60 MG Tablet PO (10:18)
[2021-05-28] MEDS: Gabapentin 600 MG Tablet PO ×4 (10:19→21:26)
[2021-05-28] MEDS: Clindamycin HCl 150 MG Capsule 300 MG PO ×4 (10:19→21:26)
[2021-05-28] MEDS: Metoprolol(XL)Succ 25 MG Tablet 12.5 MG PO (10:22)
[2021-05-28] MEDS: Furosemide 40 MG/4 ML Vial IV (10:29)
[2021-05-28] MEDS: proCHLORPERazine 10 MG/2 ML Vial IV (11:26)
[2021-05-28] MEDS: Acetaminophen 325 MG Tablet 650 MG PO (12:06)
--- NOTE | 2021-05-28 17:27 | PN.HOSP_ITS ---
Subjective Subjective Patient was seen and examined. She complains of nausea today to improve with antiemetics. Hemoglobin is relatively low. Closer to 7. Will receive 1 unit of packed RBC Objective Data Objective Data Vital Signs: Vital Signs Temp Pulse Resp BP Pulse Ox 98.2 F 76 16 99/53 L 99 05/28/21 17:25 05/28/21 17:25 05/28/21 17:25 05/28/21 17:25 05/28/21 17:25 Oxygen Delivery Method Room Air Weight: 88.3 kg Body Mass Index (BMI) 31.6 Intake & Output: Intake and Output for Last 24 Hours 05/26/21 05/27/21 05/28/21 23:59 23:59 23:59 Intake Total 1510 / 1510 324 / 324 990 / 990 Output Total 900 / 900 1400 / 1400 350 / 350 Balance 610 / 610 -1076 / -1076 640 / 640 Lab / Micro Data Result Diagrams: 05/28/21 07:00 05/28/21 07:00 Labs: Laboratory Results - last 24 hr 05/25/21 13:00: Crossmatch See Detail 05/28/21 07:00: Sodium 137, Potassium 3.7, Chloride 105, Carbon Dioxide 27.0, Anion Gap 5, BUN 29 H, Creatinine 1.07 H, Estim Creat Clear Calc 36.48, Est GFR (MDRD) Af Amer 63, Est GFR (MDRD) Non-Af 52 L, BUN/Creatinine Ratio 27.1 H, Glucose 105, Calcium 8.8, Total Bilirubin 0.70, AST 19, ALT 12 L, Alkaline Phosphatase 42 L, Total Protein 5.8 L, Albumin 2.8 L, Globulin 3.0, Albumin/Globulin Ratio 0.9 05/28/21 07:00: WBC 4.7, RBC 2.71 L, Hgb 7.7 L, Hct 25.1 L, MCV 92.6, MCH 28.4, MCHC 30.7 L, RDW Std Deviation 66.4 H, RDW Coeff of Maty 21.2 H, Plt Count 142 L, MPV 13.6 H, Neut % (Auto) Not Reportable, Absolute Neuts (auto) 1.5 L, Absolute Lymphs (auto) 2.12, Total Counted 100, Neutrophils % (Manual) 26 L, Band Neutrophils % 6 H, Lymphocytes % (Manual) 45 H, Monocytes % (Manual) 9, Eosinophils % (Manual) 4, Metamyelocytes % 4 H, Myelocytes % 6 H, Diff Path R anastacio Walters foll, Reactive Lymphocytes 1+, Platelet Estimate ADEQUATE, Anisocytosis 2+, Microcytosis 1+, Macrocytosis 1+ Micro: Microbiology 05/26/21 13:35 Stool Stool Occult Blood (DEMETRIUS) - Final Occult Blood Positive Physical Exam Narrative Physical exam: General: Alert, Oriented x3, Cooperative, No apparent distress, Well developed, off oxygen HEENT: Atraumatic Oral: Moist Mucosa Neck: Supple Lungs: Diminished to auscultation Cardiovascular: HS I+II, regular, 3/6 holosystolic murmur/ejection murmur Abdomen: Bowel Sounds Present, Soft, Non Tender Extremities: Bilateral edema+1 Assessment & Plan Assessment/Plan (1) Anemia: QUALIFIERS: Anemia type: iron deficiency Iron deficiency anemia type: chronic blood loss Qualified Code(s): D50.0 - Iron deficiency anemia secondary to blood loss (chronic) (2) Chest pain: QUALIFIERS: Chest pain type: other chest pain Qualified Code(s): R07.89 - Other chest pain (3) NIKHIL (acute kidney injury): (4) Benign hypertension: (5) Obesity: QUALIFIERS: Obesity type: due to excess calories Obesity classification: adult class 1 (BMI 30 - 34.9) Serious obesity comorbidity presence: with serious comorbidity Body mass index: BMI 31.0-31.9 Qualified Code(s): E66.09 - Other obesity due to excess calories; Z68.31 - Body mass index [BMI] 31.0-31.9, adult (6) Diabetes mellitus, type 2: QUALIFIERS: Diabetes mellitus complication status: with other specified complication Diabetes mellitus superintendent terminal insulin use: without usp use Qualified Code(s): E11.69 - Type 2 diabetes mellitus with other specified complication PLAN: 1. Acute chest pain secondary to acute symptomatic anemia, resolved 2. Acute severe symptomatic anemia secondary to acute GI bleed Hemoglobin is 7.7, status post 3 units of packed RBC in this admission Will transfuse 1 more unit of packed RBC 3. 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 Rest of chronic medical conditions including myeloproliferative/myelodysplastic syndrome/chronic heart failure with reduced EF, EF 25%/coronary artery disease status post CABG/hypertension/hyperlip idemia/history of DVT, on Coumadin Will resume back on Coumadin INR is 1.1 Charges/Coding Visit Charges Inpatient E&M: 62951 Subs Hosp L2
[2021-05-28] MEDS: Nitrofurantoin Macrocrystals 100 MG Capsule PO (17:29)
[2021-05-28] MEDS: Folic Acid 1 MG Tablet PO (17:30)
[2021-05-28] MEDS: Pantoprazole Sodium 40 MG Tablet PO (21:26)
[2021-05-28] MEDS: 0.9% Saline Lock 10 ML Syringe IV (21:27)
[2021-05-29 02:28] VITALS: BP 114/57; PULSE 90; RESP 16; TEMP 36.4; O2SAT 96
[2021-05-29 03:39] VITALS: PULSE 93
[2021-05-29] MEDS: Methocarbamol 500 MG Tablet PO ×2 (05:32→13:06)
[2021-05-29 06:29] LABS: Hemoglobin 8.7 g/dL (12.0-15.0); Mean Corp Hgb Conc 32.2 g/dL (32-36); Mean Corpuscular Hgb 29.3 pg (27.0-32.0); Mean Corpuscular Volume 90.9 fL (81-99); POSITIVE COUNT YES; POSITIVE MORPHOLOGY YES; Platelet Count 122 K/mm3 (150-450); RBC Distribution Width CV 19.3 % (11.6-14.6); RBC Distribution Width SD 58.5 fl (35.1-43.9); Red Blood Count 2.97 M/mm3 (4.2-5.4)
[2021-05-29 06:30] LABS: Differential Indicated MANUAL DIFF
[2021-05-29 06:31] LABS: International Normalized Ratio 1.7; Prothrombin Time (Protime)PT. 19.6 SECONDS (11.7-14.9)
[2021-05-29 06:48] LABS: ALB/GLOB Ratio 0.9 RATIO (0.9-2.4); AST(SGOT) 17 U/L (15-37); Alanine Aminotransfer ALT/SGPT 13 U/L (13-56); Albumin, Serum 2.8 g/dL (3.2-5.0); Alkaline Phosphatase 44 U/L (45-117); Anion Gap 9 (5-15); BUN 21 mg/dL (7-18); BUN/Creat Ratio 20.8 RATIO (10-20); Calcium,Total 9.1 mg/dL (8.5-10.1); Chloride 103 mmol/L (98-107); Creatinine, Serum 1.01 mg/dL (0.55-1.02); EST Glomerular Filtration Rate 56 mL/min (>60); Est Glom Filt Rate - Afr Amer 67 mL/min (>60); Estimated Creatinine Clearance 38.64 ml/min; Globulin 3.1 g/dL (2.2-4.2); Glucose 101 mg/dL (74-106); Potassium 3.8 mmol/L (3.5-5.1); Protein, Total 5.9 g/dL (6.4-8.2); Sodium Level 137 mmol/L (136-145)
[2021-05-29 06:52] LABS: Total Cells Counted 100 (MANUAL DIFF)
[2021-05-29 06:53] LABS: Atypical Lymphocyte 1+ %; Eosinophil 5 % (0-5); Lymphocyte 38 % (19-41); Metamyelocyte 2 % (0-1); Monocyte 19 % (0-10); Myelocyte 4 % (0-0); Neutrophil-Band 2 % (0-5); Neutrophil-Segmented 30 % (47-70)
[2021-05-29 06:56] LABS: Anisocytosis 1+; Microcytosis 1+; Platelet Estimate SLT DEC (ADEQ)
[2021-05-29 06:57] LABS: Absolute Neutrophil Count 1.6 X10^3/uL (2.0-7.7); Macrocytosis RARE; Neutrophil # 1.59 X10^3/uL (2.7-7.7)
[2021-05-29 06:58] LABS: Absolute Lymphocyte Count 1.89 X10^3/uL (0.83-4.51); Lymphocyte # 1.89 X10^3/ul (0.83-4.51)
[2021-05-29 07:00] VITALS: PULSE 81
[2021-05-29 08:28] VITALS: BP 116/42; PULSE 95; RESP 16; TEMP 36.9; O2SAT 96
[2021-05-29] MEDS: Clindamycin HCl 150 MG Capsule 300 MG PO ×2 (08:36→13:06)
[2021-05-29] MEDS: Isosorbide Mononitrate 60 MG Tablet PO (08:36)
[2021-05-29 08:37] VITALS: PULSE 95
[2021-05-29] MEDS: SACUBITRIL/VALSARTAN 49-51 MG TABLET 1 EACH PO (08:37)
[2021-05-29] MEDS: Metoprolol(XL)Succ 25 MG Tablet 12.5 MG PO (08:37)
[2021-05-29] MEDS: Furosemide 20 MG Tablet 60 MG PO (08:37)
[2021-05-29] MEDS: Cyanocobalamin 500 MCG Tablet PO (08:37)
[2021-05-29] MEDS: Calcium Carb/Vitamin D 1 TABLET Tablet PO (08:37)
[2021-05-29] MEDS: Ranolazine 500 MG Tablet PO (08:37)
[2021-05-29] MEDS: Gabapentin 600 MG Tablet PO ×2 (08:37→13:06)
[2021-05-29] MEDS: Menthol/Lanolin/Calamine/Znox 113 GM Tube 1 APPLIC TOPICAL (08:38)
[2021-05-29] MEDS: Pantoprazole Sodium 40 MG Tablet PO (08:38)
[2021-05-29] MEDS: 0.9% Saline Lock 10 ML Syringe IV (12:02)
[2021-05-29] MEDS: Ondansetron 4 MG/2 ML Vial IV (12:02)
[2021-05-29] MEDS: oxyCODONE 5 MG Tablet PO (12:03)
--- NOTE | 2021-05-29 12:45 | PCM.DC ---
Discharge Instructions Diet Discharge Diet: 2000 mg Sodium Diet Activity Discharge Activity: Return to Normal Activity Follow Up Care Test Results: Test results from this visit will be discussed in further detail at your follow-up appointment, if applicable. Discharge Plan Admission Admit Date/Time: 05/25/21 18:59 Attending Provider: Shey Kunz Primary Care Provider: Osiel Arzola Consulting Providers: Diego Bender Instructions Additional Instructions / Restrictions: Take note of changes to your medications. Continue to use her incentive spirometer. Follow-up with Dr. Bender, gastroenterology within 2 weeks. Follow-up with your primary care doctor within 1 to 2 weeks for repeat blood work to follow-up on your blood counts and kidney function. Discharge Orders/Prescriptions Prescriptions: New clindamycin HCl 150 mg Capsule 300 mg PO 4X/DAY 6 Days Qty: 48 RF: 0 oxycodone 5 mg Tablet 5 mg PO Q6H PRN PRN (Reason: Pain Score 6-10) 3 Days Qty: 12 RF: 0 Continued omeprazole 40 mg capsule,delayed release(DR/EC) 40 mg PO BID RF: 0 calcium carbonate-vitamin D3 1 EACH tablet 1 each PO DAILY RF: 0 gabapentin 600 mg tablet 600 mg PO 4X/DAY RF: 0 cyanocobalamin (vitamin B-12) 500 MCG tablet 500 mcg PO DAILY@0800 RF: 0 methocarbamol 500 mg tablet 500 mg PO TID RF: 0 folic acid 1 MG tablet 1 mg PO DINNER RF: 0 ondansetron 4 mg tablet,disintegrating 4 mg PO Q8H PRN (Reason: Nausea) RF: 0 buprenorphine 15 mcg/hour Patch Weekly 1 patch TRANSDERMAL SA RF: 0 nitrofurantoin monohyd/m-cryst [Macrobid] 100 mg Capsule 100 mg PO DAILY@1800 RF: 0 hydrocodone-acetaminophen 1 TABLET tablet 1 tab PO Q6H PRN PRN (Reason: Pain) 3 Days Qty: 12 RF: 0 rosuvastatin 40 mg tablet 40 mg PO QHS RF: 0 warfarin 4 mg Tablet 4 mg PO DAILY RF: 0 metoprolol succinate [Toprol XL] 25 mg Tablet Extended Release 24 Hr 12.5 mg PO DAILY RF: 0 nitroglycerin 0.4 mg tablet, sublingual 0.4 mg SL Q5-15M PRN (Reason: chest pain) Qty: 25 RF: 1 isosorbide mononitrate 60 mg tablet extended release 24 hr 60 mg PO DAILY Qty: 90 RF: 3 ranolazine 500 mg tablet extended release 12 hr 500 mg PO BID Qty: 180 RF: 3 Hold Instructions: Per [facility] discharge acetaminophen 325 mg capsule 650 mg PO Q8H PRN (Reason: Pain) RF: 0 Adult 50 Plus Probiotic 4 billion cell capsule 4,000 mmu cells PO DAILY RF: 0 spironolactone 25 mg tablet 25 mg PO DAILY Qty: 30 RF: 3 Entresto 49-51 mg tablet 1 tab PO BID Qty: 60 RF: 11 furosemide 40 mg tablet 60 mg PO DAILY RF: 0 Discontinued potassium chloride 10 mEq capsule, extended release 10 meq PO DAILY RF: 0 diphenhydramine HCl [Benadryl] 25 mg capsule 25 mg PO QHS PRN (Reason: sleep) Qty: 1 RF: 0 Referrals / Follow Up: Magdalene Johnson PA [PHYSICIAN SAFETY MANAGER] - Within 2 Weeks Diego Bender DO [STAFF PHYSICIAN] - Within 2 Weeks Disposition Disposition (needs filled in before D/C Order can be placed): Home, Self Care
--- NOTE | 2021-05-29 13:15 | CASEMGMT ---
Pt states no concerns going home with daughter at discharge. H&P and BUD order faxed to [facility]. D/C summ/instructions to be faxed once obtained. Call to [facility] to notify of pt discharge and faxes, voice understanding. Pt is requesting pain meds for home and Jennifer BETH aware, voices understanding. Pt voices no further questions/concerns/needs. Jose Angel BETH
[2021-05-29 14:28] VITALS: BP 108/54; PULSE 87; RESP 16; TEMP 36.8; O2SAT 96
--- NOTE | 2021-05-29 14:34 | DS.PCM_ITS ---
Providers Date of Admission: 05/25/21 Date of Discharge: 05/29/21 Primary Care Physician: Dr. Osiel Arzola MD Consultations 05/26/21 17:02 Consult: Gastroenterology Routine Consulting Provider: YuliaDiego Reason for Consult: (+) occult blood; low hgb EMERGENT Consult: No MD Notified: Yes Date Notified: 05/26/21 Time Notified: 17:03 Method of Notification: Provider Initiated Reason For Visit: CHEST PAIN Diagnosis Discharge Diagnosis (1) Anemia: Status: Acute Code(s): D64.9 - Anemia, unspecified Qualifiers: Anemia type: iron deficiency Iron deficiency anemia type: chronic blood loss Qualified Code(s): D50.0 - Iron deficiency anemia secondary to blood loss (chronic) (2) Chest pain: Status: Acute Code(s): R07.9 - Chest pain, unspecified Qualifiers: Chest pain type: other chest pain Qualified Code(s): R07.89 - Other chest pain (3) NIKHIL (acute kidney injury): Status: Acute Code(s): N17.9 - Acute kidney failure, unspecified (4) Benign hypertension: Status: Chronic Code(s): I10 - Essential (primary) hypertension (5) Obesity: Status: Chronic Code(s): E66.9 - Obesity, unspecified Qualifiers: Body mass index: BMI 31.0-31.9 Obesity classification: adult class 1 (BMI 30 - 34.9) Obesity type: due to excess calories Serious obesity comorbi dity presence: with serious comorbidity Qualified Code(s): E66.09 - Other obesity due to excess calories; Z68.31 - Body mass index [BMI] 31.0-31.9, adult (6) Diabetes mellitus, type 2: Status: Chronic Code(s): E11.9 - Type 2 diabetes mellitus without complications Qualifiers: Diabetes mellitus complication status: with other specified complication Diabetes mellitus technician terminal and repeater insulin use: without skilled nursing use Qualified Code(s): E11.69 - Type 2 diabetes mellitus with other specified complication Medications at Discharge Home Medications calcium carbonate-vitamin D3 1 each PO DAILY 03/08/17 cyanocobalamin (vitamin B-12) 500 mcg PO DAILY@0800 12/07/17 nitroglycerin 0.4 mg sublingual tablet 0.4 mg SL Q5-15M PRN #25 tablet 12/12/19 folic acid 1 mg PO DINNER 11/10/20 methocarbamol 500 mg tablet 500 mg PO TID tablet 11/26/20 omeprazole 40 mg capsule,delayed release 40 mg PO BID cap 11/26/20 ondansetron 4 mg disintegrating tablet 4 mg PO Q8H PRN tablet 11/26/20 isosorbide mononitrate 60 mg tablet,extended release 24 hr 60 mg PO DAILY #90 tablet 12/02/20 gabapentin 600 mg tablet 600 mg PO 4X/DAY tab 12/11/20 ranolazine 500 mg tablet,extended release,12 hr 500 mg PO BID #180 tab 12/23/20 acetaminophen 325 mg capsule 650 mg PO Q8H PRN cap 01/06/21 lactobacillus combination no.9 4 billion cell capsule 4,000 mmu cells PO DAILY 01/06/21 buprenorphine 1 patch TRANSDERMAL SA 01/21/21 hydrocodone-acetaminophen 1 tab PO Q6H PRN PRN 3 Days #12 tablet 01/21/21 nitrofurantoin monohyd/m-cryst [Macrobid] 100 mg PO DAILY@1800 01/21/21 spironolactone 25 mg tablet 25 mg PO DAILY #30 tab 04/10/21 sacubitril 49 mg-valsartan 51 mg tablet 1 tab PO BID #60 tab 04/16/21 furosemide 40 mg tablet 60 mg PO DAILY tab 04/17/21 metoprolol succinate [Toprol XL] 12.5 mg PO DAILY 05/25/21 rosuvastatin 40 mg PO QHS 05/25/21 warfarin 4 mg PO DAILY 05/25/21 clindamycin HCl 300 mg PO 4X/DAY 6 Days #48 cap 05/29/21 oxycodone 5 mg PO Q6H PRN PRN 3 Days #12 tab 05/29/21 Hospital Course Operations None Procedures None Summary of Care Provided Minutes Spent on Discharge: 45 Hospital Course: 80-year-old female who was admitted with severe symptomatic anemia. She has history of chronic anemia. She did have an EGD in 2019 which did not reveal any abnormalities in the upper scope. It did show some mild dive rticular disease and a benign polyp was removed. Patient's admitting hemoglobin was 6.4; she will receive a total of 4 units of packed RBCs this admission. Patient's stool for occult blood was positive. GI was consulted. She underwent EGD that showed large paraesophageal hernia, 3 stigmata of recent bleeding angiodysplastic lesions in the stomach. Patient also had 3 other angiodysplastic lesions in the second portion of duodenum. Patient was continued on IV PPI later changed to oral. She was also started on clindamycin for suspected diverticulitis. She will complete 10 days of it. She will follow-up with GI in the outpatient. She was discharged with home health. Physical Exam Narrative Physical exam: General: Alert, Oriented x3, Cooperative, No apparent distress, Well developed, off oxygen HEENT: Atraumatic Oral: Moist Mucosa Neck: Supple Lungs: Diminished to auscultation Cardiovascular: HS I+II, regular, 3/6 holosystolic murmur/ejection murmur Abdomen: Bowel Sounds Present, Soft, Non Tender Extremities: Bilateral edema+1 Weight / BMI Weight Weight: 87.679 kg Body Mass Index (BMI) 31.6 ABG / Lab / Microbiology Data Result Diagrams: 05/29/21 05:52 05/29/21 05:52 Laboratory: Laboratory Results - last 24 hr 05/25/21 13:00: Crossmatch See Detail 05/29/21 05:52: WBC 5.0, RBC 2.97 L, Hgb 8.7 L, Hct 27.0 L, MCV 90.9, MCH 29.3, MCHC 32.2, RDW Std Deviation 58.5 H, RDW Coeff of Maty 19.3 H, Plt Count 122 L, MPV TNP, Neut % (Auto) Not Reportable, Absolute Neuts (auto) 1.6 L, Absolute Lymphs (auto) 1.89, Total Counted 100, Neutrophils % (Manual) 30 L, Band Neutrophils % 2, Lymphocytes % (Manual) 38, Monocytes % (Manual) 19 H, Eosinophils % (Manual) 5, Metamyelocytes % 2 H, Myelocytes % 4 H, Diff Path Review May foll, Atypical Lymphocytes 1+, Platelet Estimate SLT DEC, Anisocytosis 1+, Microcytosis 1+, Macrocytosis RARE 05/29/21 05:52: PT 19.6 H, INR 1.7 05/29/21 05:52: Sodium 137, Potassium 3.8, Chloride 103, Carbon Dioxide 25.0, Anion Gap 9, BUN 21 H, Creatinine 1.01, Estim Creat Clear Calc 38.64, Est GFR (MDRD) Af Amer 67, Est GFR (MDRD) Non-Af 56 L, BUN/Creatinine Ratio 20.8 H, Glucose 101, Calcium 9.1, Total Bilirubin 0.80, AST 17, ALT 13, Alkaline Phosphatase 44 L, Total Protein 5.9 L, Albumin 2.8 L, Globulin 3.1, Albumin/Globulin Ratio 0.9 Microbiology: Microbiology 05/26/21 13:35 Stool Stool Occult Blood (DEMETRIUS) - Final Occult Blood Positive D/C Instructions Discharge Diet: 2000 mg Sodium Diet Meaningful Use Info Meaningful Use Diagnoses (Choose all that apply): None applicable Discharge Plan Admission Admit Date/Time: 05/25/21 18:59 Attending Provider: Shey Kunz Primary Care Provider: Osiel Arzola Consulting Providers: Diego Bender Instructions Additional Instructions / Restrictions: Patient Problems: Altered Health Status related to Hospitalization Patient Goals: *Optimal Level of Health *Keep Appointments *Medication Compliance *Remain SafeTake note of changes to your medications. Continue to use her incentive spirometer. Follow-up with Dr. Bender, gastroenterology within 2 weeks. Follow-up with your primary care doctor within 1 to 2 weeks for repeat blood work to follow-up on your blood counts and kidney function. Discharge Orders/Prescriptions Prescriptions: New clindamycin HCl 150 mg Capsule 300 mg PO 4X/DAY 6 Days Qty: 48 RF: 0 oxycodone 5 mg Tablet 5 mg PO Q6H PRN PRN (Reason: Pain Score 6-10) 3 Days Qty: 12 RF: 0 Continued omeprazole 40 mg capsule,delayed release(DR/EC) 40 mg PO BID RF: 0 calcium carbonate-vitamin D3 1 EACH tablet 1 each PO DAILY RF: 0 gabapentin 600 mg tablet 600 mg PO 4X/DAY RF: 0 cyanocobalamin (vitamin B-12) 500 MCG tablet 500 mcg PO DAILY@0800 RF: 0 methocarbamol 500 mg tablet 500 mg PO TID RF: 0 folic acid 1 MG tablet 1 mg PO DINNER RF: 0 ondansetron 4 mg tablet,disintegrating 4 mg PO Q8H PRN (Reason: Nausea) RF: 0 buprenorphine 15 mcg/hour Patch Weekly 1 patch TRANSDERMAL SA RF: 0 nitrofurantoin monohyd/m-cryst [Macrobid] 100 mg Capsule 100 mg PO DAILY@1800 RF: 0 hydrocodone-acetaminophen 1 TABLET tablet 1 tab PO Q6H PRN PRN (Reason: Pain) 3 Days Qty: 12 RF: 0 rosuvastatin 40 mg tablet 40 mg PO QHS RF: 0 warfarin 4 mg Tablet 4 mg PO DAILY RF: 0 metoprolol succinate [Toprol XL] 25 mg Tablet Extended Release 24 Hr 12.5 mg PO DAILY RF: 0 nitroglycerin 0.4 mg tablet, sublingual 0.4 mg SL Q5-15M PRN (Reason: chest pain) Qty: 25 RF: 1 isosorbide mononitrate 60 mg tablet extended release 24 hr 60 mg PO DAILY Qty: 90 RF: 3 ranolazine 500 mg tablet extended release 12 hr 500 mg PO BID Qty: 180 RF: 3 Hold Instructions: Per [facility] discharge acetaminophen 325 mg capsule 650 mg PO Q8H PRN (Reason: Pain) RF: 0 Adult 50 Plus Probiotic 4 billion cell capsule 4,000 mmu cells PO DAILY RF: 0 spironolactone 25 mg tablet 25 mg PO DAILY Qty: 30 RF: 3 Entresto 49-51 mg tablet 1 tab PO BID Qty: 60 RF: 11 furosemide 40 mg tablet 60 mg PO DAILY RF: 0 Discontinued potassium chloride 10 mEq capsule, extended release 10 meq PO DAILY RF: 0 diphenhydramine HCl [Benadryl] 25 mg capsule 25 mg PO QHS PRN (Reason: sleep) Qty: 1 RF: 0 Referrals / Follow Up: Diego Bender DO [STAFF PHYSICIAN] - 06/12/21 10:45 am Magdalene Johnson PA [PHYSICIAN SHREDDER PICKER] - 06/06/21 11:20 am Disposition Disposition (needs filled in before D/C Order can be placed): Home, Self Care Charges/Coding Visit Charges Inpatient E&M: 12916 Disch Hosp
--- NOTE | 2021-05-29 15:42 | CASEMGMT ---
D/C instructions faxed but summary not complete yet at this time. Will fax once obtained. Jose Angel BETH CM
[2021-05-30 09:32] LABS: Pathologist Review Reviewed
[2021-05-30 09:49] LABS: Pathologist Review Reviewed
--- NOTE | 2021-05-30 10:01 | CASEMGMT ---
D/C summary faxed to [facility]. Jose Angel BETH CM
--- NOTE | 2021-05-30 15:29 | CASEMGMT ---
RN CM Discharge F/U Phone Call LACE: 15 Strata: 4 Discharge date: 05/29/21 Call date: 05/30/21 Call time: 1530 Attempted to reach pt without success, message left for pt to call this RN CM back if/when able. SStaten RN CM Admission dx: Chest pain, anemia
== END 2021-05-29 15:43 | disposition home or self-care (01) | DRG 378 ==
LOC: ED 09:58 → PCU 13:08
PROVIDERS: Anesthesiology; Internal Medicine Gastroenterology; Admitting Provider Internal Medicine; Emergency Provider Emergency Medicine; PCP Family Medicine; Visit Provider Internal Medicine
PROC: 0DJ08ZZ Inspection of Upper Intestinal Tract, Via Natural or Artificial Opening Endoscopic (ICD-10-PCS; CPT 43235; principal; 2021-05-27 13:40)
DX: K31.811 Angiodysplasia of stomach and duodenum with bleeding (principal); I13.0 Hypertensive heart and chronic kidney disease with heart failure and stage 1 through stage 4 chronic kidney disease, or unspecified chronic kidney disease; N17.9 Acute kidney failure, unspecified; K57.92 Diverticulitis of intestine, part unspecified, without perforation or abscess without bleeding; I50.22 Chronic systolic (congestive) heart failure; E11.69 Type 2 diabetes mellitus with other specified complication; D50.0 Iron deficiency anemia secondary to blood loss (chronic); N18.32 Chronic kidney disease, stage 3b; D64.9 Anemia, unspecified; I25.10 Atherosclerotic heart disease of native coronary artery without angina pectoris; I25.5 Ischemic cardiomyopathy; E78.5 Hyperlipidemia, unspecified; K21.9 Gastro-esophageal reflux disease without esophagitis; K44.9 Diaphragmatic hernia without obstruction or gangrene; E66.9 Obesity, unspecified; Z68.33 Body mass index [BMI] 33.0-33.9, adult; Z79.01 Long term (current) use of anticoagulants; Z79.891 Long term (current) use of opiate analgesic; Z82.49 Family history of ischemic heart disease and other diseases of the circulatory system; Z86.718 Personal history of other venous thrombosis and embolism; Z90.49 Acquired absence of other specified parts of digestive tract; Z88.2 Allergy status to sulfonamides; Z88.1 Allergy status to other antibiotic agents; Z90.710 Acquired absence of both cervix and uterus; Z98.51 Tubal ligation status
CPT/HCPCS: 36415; 71045; 80048; 80053; 82274; 83735; 84484; 85014; 85018; 85025; 85610; 86850; 86900; 86901; 86920; 86922; 93005; 97162; 97166; 97535; 99251; 99285; J7040; J7120; P9016; P9040; A4216; G0463; J1940; J2405; J3490

== ENCOUNTER → 2021-06-04 08:32 | Outpatient (CLI) | payer MEDICARE, SELFPAY ==
[2021-06-04 10:04] LABS: International Normalized Ratio 1.8; Prothrombin Time (Protime)PT. 20.4 SECONDS (11.7-14.9)
== END ==
PROVIDERS: PCP Family Medicine; Visit Provider Internal Medicine Cardiovascular Disease
DX: Z79.01 Long term (current) use of anticoagulants (principal); Z86.718 Personal history of other venous thrombosis and embolism
CPT/HCPCS: 36415; 85610

== ENCOUNTER → 2021-06-11 08:28 | Outpatient (CLI) | payer MEDICARE, SELFPAY ==
[2021-06-11 10:27] LABS: International Normalized Ratio 2.8; Prothrombin Time (Protime)PT. 28.4 SECONDS (11.7-14.9)
== END ==
PROVIDERS: Referring Provider Internal Medicine Cardiovascular Disease; Visit Provider Internal Medicine Cardiovascular Disease
DX: Z79.01 Long term (current) use of anticoagulants (principal); Z86.718 Personal history of other venous thrombosis and embolism
CPT/HCPCS: 36415; 85610

== ENCOUNTER → 2021-06-25 07:52 | Outpatient (CLI) | payer MEDICARE, SELFPAY ==
[2021-06-25 11:16] LABS: International Normalized Ratio 3.6; Prothrombin Time (Protime)PT. 35.1 SECONDS (11.7-14.9)
== END ==
PROVIDERS: Visit Provider Internal Medicine Cardiovascular Disease
DX: I74.9 Embolism and thrombosis of unspecified artery (principal); Z79.01 Long term (current) use of anticoagulants; I25.10 Atherosclerotic heart disease of native coronary artery without angina pectoris
CPT/HCPCS: 36415; 85610

== ENCOUNTER → 2021-07-02 08:29 | Outpatient (CLI) | payer MEDICARE, SELFPAY ==
[2021-07-02 10:59] LABS: International Normalized Ratio 3.5; Prothrombin Time (Protime)PT. 34.2 SECONDS (11.7-14.9)
== END ==
PROVIDERS: Visit Provider Internal Medicine Cardiovascular Disease
DX: I74.9 Embolism and thrombosis of unspecified artery (principal); Z79.01 Long term (current) use of anticoagulants; I25.10 Atherosclerotic heart disease of native coronary artery without angina pectoris
CPT/HCPCS: 36415; 85610

== ENCOUNTER → 2021-07-16 09:39 | Outpatient (CLI) | payer MEDICARE, SELFPAY ==
[2021-07-16 11:50] LABS: Prothrombin Time (Protime)PT. 41.9 SECONDS (11.7-14.9)
[2021-07-16 12:05] LABS: AST(SGOT) 20 U/L (15-37); Alanine Aminotransfer ALT/SGPT 12 U/L (13-56); Albumin, Serum 3.2 g/dL (3.2-5.0); Alkaline Phosphatase 53 U/L (45-117); Bilirubin, Direct 0.19 mg/dL (0.00-0.30); Cholesterol 113 mg/dL (200); Globulin 3.4 g/dL (2.2-4.2); High Density Lipoprotein 43 mg/dL; Protein, Total 6.6 g/dL (6.4-8.2); Triglycerides 92 mg/dL; Very Low Density Lipoprotein 18 mg/dL (5-40)
[2021-07-16 12:13] LABS: International Normalized Ratio 4.5
== END ==
PROVIDERS: Nurse Practitioner Family; Visit Provider Internal Medicine Cardiovascular Disease
DX: I74.9 Embolism and thrombosis of unspecified artery (principal); Z86.718 Personal history of other venous thrombosis and embolism; Z79.01 Long term (current) use of anticoagulants
CPT/HCPCS: 36415; 80061; 80076; 85610

== ENCOUNTER → 2021-07-18 07:55 | Outpatient (CLI) | payer MEDICARE, SELFPAY ==
[2021-07-18 12:01] LABS: International Normalized Ratio 2.7; Prothrombin Time (Protime)PT. 27.8 SECONDS (11.7-14.9)
== END ==
PROVIDERS: Visit Provider Internal Medicine Cardiovascular Disease
DX: I74.9 Embolism and thrombosis of unspecified artery (principal); Z79.01 Long term (current) use of anticoagulants; Z86.718 Personal history of other venous thrombosis and embolism
CPT/HCPCS: 36415; 85610

== ENCOUNTER → 2021-07-23 09:43 | Outpatient (CLI) | payer MEDICARE, SELFPAY ==
[2021-07-23 11:32] LABS: International Normalized Ratio 2.9; Prothrombin Time (Protime)PT. 29.9 SECONDS (11.7-14.9)
== END ==
PROVIDERS: Referring Provider Internal Medicine Cardiovascular Disease; Visit Provider Internal Medicine Cardiovascular Disease
DX: I74.9 Embolism and thrombosis of unspecified artery (principal); Z79.01 Long term (current) use of anticoagulants; Z86.718 Personal history of other venous thrombosis and embolism
CPT/HCPCS: 36415; 85610

== ENCOUNTER → 2021-07-30 09:27 | Outpatient (CLI) | payer MEDICARE, SELFPAY ==
[2021-07-30 11:26] LABS: International Normalized Ratio 3.4; Prothrombin Time (Protime)PT. 33.3 SECONDS (11.7-14.9)
== END ==
PROVIDERS: Referring Provider Internal Medicine Cardiovascular Disease; Visit Provider Internal Medicine Cardiovascular Disease
DX: I74.9 Embolism and thrombosis of unspecified artery (principal); Z79.01 Long term (current) use of anticoagulants; Z86.718 Personal history of other venous thrombosis and embolism
CPT/HCPCS: 36415; 85610

== ENCOUNTER 2021-08-01 14:10 | Emergency (ER) | payer MEDICARE, SELFPAY ==
[2021-08-01 14:11] VITALS: BP 110/80; PULSE 96; RESP 18; TEMP 36.8; O2SAT 98; BMI 29.2
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
--- NOTE | 2021-08-01 14:40 | RAD_ITS ---
STUDY: X-RAY - UNILATERAL RIBS ( RIGHT ) WITH CHEST REASON FOR EXAM: Female, 80 years old. Right rib pain TECHNIQUE - RIBS: 2 view(s) of the ribs. TECHNIQUE - CHEST: Single PA view of the chest. COMPARISON: Comparison is made with prior chest radiograph dated 11/23/2020. FINDINGS - RIBS: Normal visualized ribs without a demonstrated fracture. FINDINGS - CHEST: Stable mild linear scarring at the lung bases. There is no demonstrated pleural abnormality. Sternal cerclage wires and vascular clips are present from a prior sternotomy and coronary artery bypass graft procedure (CABG). A left-sided dual-chamber pacemaker is seen. Normal mediastinum and pranay. Normal visualized pulmonary arteries. There is atherosclerotic calcification of the aortic arch with tortuosity. There are diffuse degenerative changes of the visualized thoracic spine. Prior vertebroplasty of the lower dorsal vertebrae. There is degenerative osteoarthritis of the bilateral shoulders. Small hiatal hernia. RAD/Ribs Uni Min 3V w/PA Chest IMPRESSION: RIBS: Normal x-ray examination of the ribs. CHEST: Stable mild increased markings at the lung bases suggestive of scarring. Electronically Signed: Omid Bansal MD at 14:57 EST , Service support ,
[2021-08-01] MEDS: Ondansetron ODT 4 MG Tablet PO (14:50)
[2021-08-01] MEDS: Lidocaine 5% Patch 1 PATCH TOPICAL (14:50)
[2021-08-01] MEDS: HYDROcodone Bitartrate/Apap 5/325 Tablet PO (14:50)
[2021-08-01 16:35] LABS: International Normalized Ratio 2.7; Prothrombin Time (Protime)PT. 27.7 SECONDS (11.7-14.9)
== END 2021-08-01 17:12 | disposition home or self-care (01) ==
PROVIDERS: Emergency Provider Student in an Organized Health Care Education/Training Program
DX: S20.211A Contusion of right front wall of thorax, initial encounter (principal); W22.09XA Striking against other stationary object, initial encounter; Y92.410 Unspecified street and highway as the place of occurrence of the external cause; D69.6 Thrombocytopenia, unspecified; E11.9 Type 2 diabetes mellitus without complications; E66.9 Obesity, unspecified; E78.5 Hyperlipidemia, unspecified; I11.0 Hypertensive heart disease with heart failure; I50.22 Chronic systolic (congestive) heart failure; I25.10 Atherosclerotic heart disease of native coronary artery without angina pectoris; I44.7 Left bundle-branch block, unspecified; K21.9 Gastro-esophageal reflux disease without esophagitis; Z79.01 Long term (current) use of anticoagulants; Z79.1 Long term (current) use of non-steroidal anti-inflammatories (NSAID); Z86.711 Personal history of pulmonary embolism; Z86.718 Personal history of other venous thrombosis and embolism; Z95.1 Presence of aortocoronary bypass graft; Z95.810 Presence of automatic (implantable) cardiac defibrillator
CPT/HCPCS: 71101; 85610; 99285

== ENCOUNTER → 2021-08-13 08:19 | Outpatient (CLI) | payer MEDICARE, SELFPAY ==
[2021-08-13 11:22] LABS: International Normalized Ratio 1.8; Prothrombin Time (Protime)PT. 19.9 SECONDS (11.7-14.9)
== END ==
PROVIDERS: Visit Provider Internal Medicine Cardiovascular Disease
DX: I74.9 Embolism and thrombosis of unspecified artery (principal); Z86.718 Personal history of other venous thrombosis and embolism; Z79.01 Long term (current) use of anticoagulants
CPT/HCPCS: 36415; 85610

== ENCOUNTER 2021-08-18 01:21 | Inpatient (IN) | payer MEDICARE, SELFPAY ==
[2021-08-18] VITALS (11 sets, daily range): BP systolic 108–143; BP diastolic 60–77; PULSE 65–124; RESP 16–20; TEMP 36.6–37; O2SAT 91–98; BMI 31.8; BMI 30.4
--- NOTE | 2021-08-18 02:08 | CT_ITS ---
STUDY: CT ABDOMEN AND PELVIS WITH CONTRAST REASON FOR EXAM: Female, 80 years old. Abdominal pain. RADIATION DOSAGE (If Supplied By Facility): CTDIvol = ( 18.03 ) mGy, DLP = ( 1095.87 ) mGycm TECHNIQUE: Transaxial images were obtained from the dome of the diaphragm to the symphysis pubis without oral contrast. 100 mL Isovue 370 intravenous contrast was administered. Sagittal and coronal images were reconstructed. Individualized dose optimization techniques were used for this CT. COMPARISON: January 21, 2021. FINDINGS: Small bilateral pleural effusions. Mild cardiomegaly. Coronary artery calcifications. Calcification mitral annulus. Artifact from cardiac pacemaker wires. No pericardial effusion. Moderate size hiatal hernia. Calcified paraesophageal lymph node. Normal liver. There are surgical clips in the gallbladder fossa consistent with a prior cholecystectomy. There are multiple benign calcified granulomata of the spleen. Normal pancreas. Normal bilateral adrenal glands. Normal right kidney. Normal left kidney. Normal visualized stomach. Minimally prominent fluid-filled loops of mid small bowel somewhat debris. Mild wall thickening involving the very distal ascending colon as well as sigmoid colon. Sigmoid diverticulosis. There is non-visualization of the appendix. There are atherosclerotic changes of the abdominal aorta. Normal inferior vena cava. Normal retroperitoneum. No intra-abdominal free air. Normal urinary bladder. Uterus is not visualized compatible with hysterectomy. No adnexal mass is seen. Normal abdominal wall. Vertebral plasty changes T12. Focal kyphosis at T12 unchanged. Old compression fractures L1 and L4. Degenerative changes of lower thoracic and lumbar spine. Bilateral hip joint space narrowing. CT/Abdomen/Pelvis W IV Cont ONLY IMPRESSION: Mild wall thickening involving the distal descending colon and sigmoid colon along with sigmoid diverticulosis. Findings probably represent diverticular disease. No pericolonic inflammatory changes to suggest acute diverticulitis. Mild colitis of the distal descending and sigmoid colon is a consideration. Mildly prominent loops of mid small bowel which may represent a developing small bowel obstruction. Small bilateral pleural effusions. Cardiomegaly. Moderate size hiatal hernia. Old granulomatous disease. Old compression fractures in the lower thoracic and lumbar spine. Electronically Signed: Benjamin Bucio MD at 3:33 EST , Service support ,
[2021-08-18] MEDS: Ondansetron 4 MG/2 ML Vial IV ×3 (02:19→19:57)
[2021-08-18] MEDS: Morphine 4 MG/ML Syringe IV (02:20)
[2021-08-18] MEDS: 0.9% Normal Saline 1,000 ML 999 ML IV (02:21)
[2021-08-18 02:25] LABS: Hematocrit 27.4 % (37-47); Hemoglobin 8.4 g/dL (12.0-15.0); Mean Corp Hgb Conc 30.7 g/dL (32-36); Mean Corpuscular Hgb 31.1 pg (27.0-32.0); Mean Corpuscular Volume 101.5 fL (81-99); POSITIVE COUNT YES; POSITIVE DIFFERENTIAL YES; POSITIVE MORPHOLOGY YES; Platelet Count 287 K/mm3 (150-450); RBC Distribution Width CV 23.2 % (11.6-14.6); RBC Distribution Width SD 83.4 fl (35.1-43.9); White Blood Count 32.6 K/mm3 (4.4-11.0)
[2021-08-18 02:32] LABS: Differential Indicated MANUAL DIFF
[2021-08-18 02:38] LABS: AST(SGOT) 31 U/L (15-37); Alanine Aminotransfer ALT/SGPT 15 U/L (13-56); Albumin, Serum 2.5 g/dL (3.2-5.0); Alkaline Phosphatase 61 U/L (45-117); Anion Gap 11 (5-15); BUN 16 mg/dL (7-18); BUN/Creat Ratio 12.7 RATIO (10-20); Bilirubin, Direct 0.16 mg/dL (0.00-0.30); Calcium,Total 9.1 mg/dL (8.5-10.1); Chloride 101 mmol/L (98-107); Creatinine, Serum 1.26 mg/dL (0.55-1.02); EST Glomerular Filtration Rate 43 mL/min (>60); Est Glom Filt Rate - Afr Amer 52 mL/min (>60); Estimated Creatinine Clearance 30.98 ml/min; Globulin 4.2 g/dL (2.2-4.2); Glucose 138 mg/dL (74-106); Lipase 29 U/L (73-393); Potassium 3.9 mmol/L (3.5-5.1); Protein, Total 6.7 g/dL (6.4-8.2); Sodium Level 136 mmol/L (136-145); Troponin-I HS 18 pg/mL (3.0-54.0)
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
[2021-08-18 03:15] LABS: Absolute Lymphocyte Count 2.94 X10^3/uL (0.83-4.51); Absolute Neutrophil Count 11.1 X10^3/uL (2.0-7.7); Metamyelocyte 5 % (0-1); Myelocyte 21 % (0-0); Neutrophil-Band 4 % (0-5); Neutrophil-Segmented 30 % (47-70); Total Cells Counted 100 (MANUAL DIFF)
[2021-08-18 03:16] LABS: Atypical Lymphocyte 1+ %; Eosinophil 2 % (0-5); Lymphocyte 9 % (19-41); Monocyte 20 % (0-10); Platelet Estimate ADEQUATE (ADEQ); Platelet Morphology LARGE; Promyelocyte 9 % (0-0); Red Cell Morphology NORM C+C NORMAL (NORM C&C)
[2021-08-18 03:17] LABS: Anisocytosis 4+
[2021-08-18 03:18] LABS: Partial Thromboplast Time 52.9 Seconds (24.1-36.2); Prothrombin Time (Protime)PT. 22.1 SECONDS (11.7-14.9)
[2021-08-18 03:34] LABS: Lactic Acid 1.6 mmol/L (0.4-1.9)
[2021-08-18 04:13] LABS: Mucous, Urine 0 SEEN /hpf (<or=2+)
[2021-08-18 04:14] LABS: Color, Urine Yellow (Yellow); Glucose, Dipstick Normal (Normal); Ketone-Dipstick Negative (Negative); Leukocyte Esterase-Dipstick 100 /ul (Negative); Nitrite-Dipstick Positive (Negative); Occult Blood-Urine 25 /ul (Negative); Protein-Dipstick 30 mg/dl (Negative); Urine Bilirubin Dipstick Negative (Negative); Urine Clarity Clear (Clear); Urine Urobilinogen Normal (Normal)
[2021-08-18 04:35] LABS: White Blood Cells 5-10 SEEN /hpf (0-5)
[2021-08-18] MEDS: Piperacil/Tazobactam 3.375 GM/50 ML ML IV (04:35)
[2021-08-18 04:36] LABS: Bacteria 3+ /hpf (None Seen); Red Blood Cells-Urine 0-5 SEEN /hpf (0-5); Squamous Epithelial Cells - UA 0-5 SEEN /hpf (5-10)
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
--- NOTE | 2021-08-18 06:41 | NURSING ---
312 colitis, uti agyepong
[2021-08-18] MEDS: 0.9% Saline Lock 10 ML Syringe IV ×2 (08:26→20:01)
[2021-08-18] MEDS: Morphine 2 MG/ML Syringe IV ×3 (08:26→19:58)
[2021-08-18] MEDS: Isosorbide Mononitrate 60 MG Tablet PO (09:24)
[2021-08-18] MEDS: Spironolactone 25 MG Tablet PO (09:24)
[2021-08-18] MEDS: Metoprolol(XL)Succ 25 MG Tablet 12.5 MG PO ×2 (09:24→11:17)
[2021-08-18] MEDS: Furosemide 20 MG Tablet 60 MG PO (09:25)
[2021-08-18] MEDS: Pantoprazole Sodium 40 MG Tablet PO ×2 (09:25→19:59)
[2021-08-18] MEDS: Potassium Chloride Oral Tablet 10 MEQ PO (09:25)
[2021-08-18] MEDS: Ranolazine 500 MG Tablet PO ×2 (09:25→19:59)
[2021-08-18] MEDS: Methocarbamol 500 MG Tablet PO ×3 (09:25→20:00)
[2021-08-18] MEDS: Cyanocobalamin 500 MCG Tablet PO (09:28)
--- NOTE | 2021-08-18 09:55 | CASEMGMT ---
Addendum entered by Kathy Rose 08/18/21 12:06: TC to [facility], Belen Hopper to verify pt active disciplines and to make aware pt is hospitalized. Left vm requesting returned call. Original Note: RN AVELINA Assessment: Face to Face with pt for initial transition planning/care coordination assessment. KIRIT QUAN introduced self and role at [facility], pt voices understanding and consents to assessment. Pt is A/O x4 and answers all questions appropriately at this time. Pt lying in bed in no distress. Care providers, pharmacy, and demographics verified/updated. Admitting Dx: acute colitis PCP:Dariusz Specialists: Harshad, cardio; Ton uro (pt unsure if this is the correct name) Preferred Pharmacy: [facility] Insurance: Clay HASSAN Prescription Benefit: yes LW/HPOA: Pt denies having a LW but states she has a DPOA. Her DPOA is her dtr Michelle Diehl. She is aware that this is not on file at [facility] and she may bring it in to be scanned into the chart if she would like. LNOK: Michelle Diehl, dtr; Wilmer Richards, Living Arrangements: Pt lives with and dtr in a single story house with 2 steps to enter. Pt reports she is I in ADL's and denies concerns at home. Transportation: Pt dtr transports her to medical appts. DME/HHC/SNF: Pt has a cane, rollator, BSC and w/c but does not use. Pt has a shower chair, walker and BGM with sufficient supplies of lancets and strips. Pt uses her walker mostly. Pt checks her blood sugar every 3 wks. She is having a walk in shower put in but this has not started yet. Pt is current with [facility] receiving nursing services. She states she has been to [facility] in the past. Pt states no concerns with going home at time of dc. She would like her HHC resumed. Pt states no further concerns/needs. CM to follow. Advised pt to ask CM if any further question/concerns/needs arise, voices understanding. Pt Goal: Home with resumption of HHC Plan: Home with resumption of HHC
--- NOTE | 2021-08-18 10:17 | PN.HOSP_ITS ---
Subjective Subjective Patient was seen and examined. Admitted this morning with abdominal pain and found to have colitis. Patient complains of abdominal pain going across her abdomen. Denied any fever or chills. Vitals reviewed?stable except for tachycardia Labs reviewed Abdomen/pelvis CT reviewed Continue on IV Zosyn Objective Data Objective Data Vital Signs: Vital Signs Temp Pulse Resp BP Pulse Ox 98.6 F 118 H 20 H 124/66 H 94 08/18/21 06:57 08/18/21 09:24 08/18/21 06:57 08/18/21 06:57 08/18/21 07:42 Oxygen Delivery Method Room Air Weight: 82.8 kg Body Mass Index (BMI) 30.4 Intake & Output: Intake and Output for Last 24 Hours 08/16/21 08/17/21 08/18/21 23:59 23:59 23:59 Intake Total 1050 / 1050 Balance 1050 / 1050 Lab / Micro Data Result Diagrams: 08/18/21 01:38 08/18/21 01:38 Labs: Laboratory Results - last 24 hr 08/18/21 01:38: WBC 32.6 H*, RBC 2.70 L, Hgb 8.4 L, Hct 27.4 L, MCV 101.5 H, MCH 31.1, MCHC 30.7 L, RDW Std Deviation 83.4 H, RDW Coeff of Maty 23.2 H, Plt Count 287, Neut % (Auto) Not Reportable, Absolute Neuts (auto) 11.1 H, Absolute Lymphs (auto) 2.94, Total Counted 100, Neutrophils % (Manual) 30 L, Band Neutrophils % 4, Lymphocytes % (Manual) 9 L, Monocytes % (Manual) 20 H, Eosinophils % (Manual) 2, Metamyelocytes % 5 H, Myelocytes % 21 H, Promyelocytes % 9 H, Diff Path Review May foll, Atypical Lymphocytes 1+, Platelet Estimate ADEQUATE, Plt Morphology Comment LARGE, RBC Morphology NORM C+C, Anisocytosis 4+ 08/18/21 01:38: Sodium 136, Potassium 3.9, Chloride 101, Carbon Dioxide 24.0, Anion Gap 11, BUN 16, Creatinine 1.26 H, Estim Creat Clear Calc 30.98, Est GFR (MDRD) Af Amer 52 L, Est GFR (MDRD) Non-Af 43 L, BUN/Creatinine Ratio 12.7, Glucose 138 H, Calcium 9.1, Total Bilirubin 0.50, Direct Bilirubin 0.16, AST 31, ALT 15, Alkaline Phosphatase 61, Troponin I High Sens 18, Total Protein 6.7, Albumin 2.5 L, Globulin 4.2, Lipase 29 L 08/18/21 01:38: PT 22.1 H, INR 2.0, APTT 52.9 H 08/18/21 01:38: Lactic Acid 1.6 08/18/21 04:05: Urine Color Yellow, Urine Clarity Clear, Urine pH 5.0, Ur Specific [place] 1.010, Urine Protein 30 H, Urine Glucose (UA) Normal, Urine Ketones Negative, Urine Occult Blood 25 H, Urine Nitrite Positive H, Urine Bilirubin Negative, Urine Urobilinogen Normal, Ur Leukocyte Esterase 100 H, Urine RBC 0-5 SEEN, Urine WBC 5-10 SEEN, Ur Squamous Epith Cells 0-5 SEEN, Urine Bacteria 3+, Urine Mucus 0 SEEN Micro: Microbiology 08/18/21 02:17 Nasal Secretion SARS-CoV-2 Antigen (Rapid) - Final Radiography Diagnostic Testing: Radiology Impression Abdomen/Pelvis CT 08/18/21 02:08 IMPRESSION: Mild wall thickening involving the distal descending colon and sigmoid colon along with sigmoid diverticulosis. Findings probably represent diverticular disease. No pericolonic inflammatory changes to suggest acute diverticulitis. Mild colitis of the distal descending and sigmoid colon is a consideration. Mildly prominent loops of mid small bowel which may represent a developing small bowel obstruction. Small bilateral pleural effusions. Cardiomegaly. Moderate size hiatal hernia. Old granulomatous disease. Old compression fractures in the lower thoracic and lumbar spine. Electronically Signed: Benjamin Bucio MD at 3:33 EST , Service support ,
[2021-08-18] MEDS: Calcium Carb/Vitamin D 1 TABLET Tablet PO (11:15)
[2021-08-18 12:15] LABS: Bedside Glucose 137 mg/dL (70-110)
[2021-08-18 14:05] LABS: Pathologist Review Reviewed
[2021-08-18] MEDS: SACUBITRIL/VALSARTAN 49-51 MG TABLET 1 EACH PO ×2 (14:10→19:59)
[2021-08-18] MEDS: Jantoven 2 MG Tablet PO (18:01)
[2021-08-18] MEDS: Folic Acid 1 MG Tablet PO (18:01)
[2021-08-18] MEDS: Senna/Docusate Sodium 1 Tablet 2 TABLET PO (19:58)
[2021-08-18] MEDS: Acetaminophen 325 MG Tablet 650 MG PO (20:00)
[2021-08-18] MEDS: ROSUVASTATIN CALCIUM 40 MG TABLET PO (20:00)
[2021-08-18] MEDS: Nystatin Powder 15gm Bottle 1 APPLIC TOPICAL (22:03)
[2021-08-18] MEDS: Menthol/Lanolin/Calamine/Znox 113 GM Tube 1 APPLIC TOPICAL (22:04)
[2021-08-19] MEDS: Morphine 2 MG/ML Syringe IV ×4 (02:55→21:53)
[2021-08-19] MEDS: 0.9% Saline Lock 10 ML Syringe IV ×5 (02:55→18:06)
[2021-08-19 03:01] VITALS: BP 108/62; PULSE 102; RESP 16; TEMP 36.8; O2SAT 94
[2021-08-19] MEDS: Acetaminophen 325 MG Tablet 650 MG PO (05:04)
[2021-08-19] MEDS: Methocarbamol 500 MG Tablet PO ×3 (05:04→21:47)
[2021-08-19 06:14] LABS: Hematocrit 26.3 % (37-47); Hemoglobin 8.1 g/dL (12.0-15.0); Mean Corp Hgb Conc 30.8 g/dL (32-36); Mean Corpuscular Hgb 31.4 pg (27.0-32.0); Mean Corpuscular Volume 101.9 fL (81-99); Mean Platelet Vol. 13.9 fl (6.2-12.0); POSITIVE COUNT YES; POSITIVE DIFFERENTIAL YES; POSITIVE MORPHOLOGY YES; Platelet Count 274 K/mm3 (150-450); RBC Distribution Width CV 23.2 % (11.6-14.6); RBC Distribution Width SD 83.4 fl (35.1-43.9); Red Blood Count 2.58 M/mm3 (4.2-5.4)
[2021-08-19 06:17] LABS: White Blood Count 33.2 K/mm3 (4.4-11.0)
[2021-08-19 06:18] LABS: Differential Indicated MANUAL DIFF
[2021-08-19 06:31] LABS: International Normalized Ratio 2.4
[2021-08-19 06:41] LABS: Anion Gap 9 (5-15); BUN 14 mg/dL (7-18); BUN/Creat Ratio 12.5 RATIO (10-20); Chloride 103 mmol/L (98-107); Creatinine, Serum 1.12 mg/dL (0.55-1.02); EST Glomerular Filtration Rate 49 mL/min (>60); Est Glom Filt Rate - Afr Amer 60 mL/min (>60); Estimated Creatinine Clearance 34.85 ml/min; Glucose 99 mg/dL (74-106); Potassium 4.1 mmol/L (3.5-5.1); Sodium Level 137 mmol/L (136-145)
[2021-08-19 06:58] LABS: Total Cells Counted 100 (MANUAL DIFF)
[2021-08-19 07:03] LABS: Metamyelocyte 3 % (0-1); Neutrophil-Band 2 % (0-5); Neutrophil-Segmented 27 % (47-70)
[2021-08-19 07:04] LABS: Blast 1 % (0-0); Eosinophil 1 % (0-5); Lymphocyte 12 % (19-41); Monocyte 28 % (0-10); Myelocyte 19 % (0-0); Platelet Estimate ADEQUATE (ADEQ); Promyelocyte 7 % (0-0)
[2021-08-19 07:05] LABS: Anisocytosis 3+; Hypochromasia RARE; Macrocytosis 1+; Microcytosis 2+
[2021-08-19 07:06] LABS: Absolute Neutrophil Count 9.6 X10^3/uL (2.0-7.7); Neutrophil # 9.64 X10^3/uL (2.7-7.7)
[2021-08-19 07:07] LABS: Absolute Lymphocyte Count 3.99 X10^3/uL (0.83-4.51); Lymphocyte # 3.99 X10^3/ul (0.83-4.51)
[2021-08-19 07:49] VITALS: BP 125/73; PULSE 102; RESP 18; TEMP 36.7; O2SAT 94
[2021-08-19 07:56] VITALS: O2SAT 94
[2021-08-19] MEDS: Ondansetron 4 MG/2 ML Vial IV ×2 (08:05→18:06)
[2021-08-19] MEDS: Cyanocobalamin 500 MCG Tablet PO (09:55)
[2021-08-19] MEDS: Calcium Carb/Vitamin D 1 TABLET Tablet PO (09:55)
[2021-08-19] MEDS: Isosorbide Mononitrate 60 MG Tablet PO (09:56)
[2021-08-19] MEDS: SACUBITRIL/VALSARTAN 49-51 MG TABLET 1 EACH PO ×2 (09:56→21:47)
[2021-08-19] MEDS: Menthol/Lanolin/Calamine/Znox 113 GM Tube 1 APPLIC TOPICAL ×2 (09:56→21:49)
[2021-08-19] MEDS: Spironolactone 25 MG Tablet PO (09:56)
[2021-08-19 09:57] VITALS: BP 125/73; PULSE 102
[2021-08-19] MEDS: Ranolazine 500 MG Tablet PO ×2 (09:57→21:47)
[2021-08-19] MEDS: Furosemide 20 MG Tablet 60 MG PO (09:57)
[2021-08-19] MEDS: Metoprolol(XL)Succ 25 MG Tablet PO (09:57)
[2021-08-19] MEDS: Potassium Chloride Oral Tablet 10 MEQ PO (09:57)
[2021-08-19] MEDS: Pantoprazole Sodium 40 MG Tablet PO ×2 (09:57→21:47)
[2021-08-19] MEDS: Nystatin Powder 15gm Bottle 1 APPLIC TOPICAL ×2 (09:57→21:48)
[2021-08-19] MEDS: Senna/Docusate Sodium 1 Tablet 2 TABLET PO (09:58)
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
--- NOTE | 2021-08-19 13:37 | CASEMGMT ---
TC sherman Molina at [facility], he confirms pt is receiving SN services and they are able to take pt back upon dc. RN CM to follow for therapy needs as well.
[2021-08-19] MEDS: proCHLORPERazine 10 MG/2 ML Vial 5 MG IV (13:51)
[2021-08-19 13:57] VITALS: BP 103/51; PULSE 98; RESP 18; TEMP 36.4; O2SAT 93
[2021-08-19 14:24] LABS: Pathologist Review Reviewed
[2021-08-19] MEDS: Jantoven 2 MG Tablet PO (18:01)
[2021-08-19] MEDS: Folic Acid 1 MG Tablet PO (18:01)
[2021-08-19 20:00] VITALS: BP 125/85; PULSE 106; RESP 18; TEMP 36.6; O2SAT 94
[2021-08-19] MEDS: ROSUVASTATIN CALCIUM 40 MG TABLET PO (21:47)
[2021-08-20 02:00] VITALS: BP 116/75; PULSE 96; RESP 16; TEMP 36.6; O2SAT 94
[2021-08-20] MEDS: Methocarbamol 500 MG Tablet PO ×3 (05:32→21:05)
[2021-08-20 07:59] LABS: International Normalized Ratio 2.4; Prothrombin Time (Protime)PT. 25.7 SECONDS (11.7-14.9)
[2021-08-20 08:06] LABS: Hematocrit 25.9 % (37-47); Mean Corp Hgb Conc 30.9 g/dL (32-36); Mean Corpuscular Hgb 31.5 pg (27.0-32.0); POSITIVE COUNT YES; POSITIVE DIFFERENTIAL YES; POSITIVE MORPHOLOGY YES; Platelet Count 276 K/mm3 (150-450); RBC Distribution Width CV 23.1 % (11.6-14.6); RBC Distribution Width SD 84.6 fl (35.1-43.9); Red Blood Count 2.54 M/mm3 (4.2-5.4)
[2021-08-20 08:12] LABS: Differential Indicated MANUAL DIFF; White Blood Count 40.5 K/mm3 (4.4-11.0)
[2021-08-20 08:16] LABS: ALB/GLOB Ratio 0.6 RATIO (0.9-2.4); AST(SGOT) 42 U/L (15-37); Alanine Aminotransfer ALT/SGPT 12 U/L (13-56); Albumin, Serum 2.3 g/dL (3.2-5.0); Alkaline Phosphatase 57 U/L (45-117); Anion Gap 11 (5-15); BUN 16 mg/dL (7-18); BUN/Creat Ratio 11.7 RATIO (10-20); Calcium,Total 8.8 mg/dL (8.5-10.1); Chloride 101 mmol/L (98-107); Creatinine, Serum 1.37 mg/dL (0.55-1.02); EST Glomerular Filtration Rate 39 mL/min (>60); Est Glom Filt Rate - Afr Amer 47 mL/min (>60); Estimated Creatinine Clearance 28.49 ml/min; Globulin 3.8 g/dL (2.2-4.2); Glucose 86 mg/dL (74-106); Potassium 3.8 mmol/L (3.5-5.1); Protein, Total 6.1 g/dL (6.4-8.2); Sodium Level 137 mmol/L (136-145)
[2021-08-20 08:30] VITALS: BP 98/53; PULSE 101; RESP 16; TEMP 36.9; O2SAT 94
[2021-08-20] MEDS: Ondansetron 4 MG/2 ML Vial IV ×2 (08:41→18:33)
[2021-08-20] MEDS: Acetaminophen 325 MG Tablet 650 MG PO ×2 (08:41→17:08)
--- NOTE | 2021-08-20 08:59 | ONC.CONSULT ---
Assessment & Plan Assessment/Plan (1) Colitis: Status: Acute Code(s): K52.9 - Noninfective gastroenteritis and colitis, unspecified (2) UTI (urinary tract infection): Status: Acute Code(s): N39.0 - Urinary tract infection, site not specified Qualifiers: Urinary tract infection type: acute cystitis Hematuria presence: without hematuria Qualified Code(s): N30.00 - Acute cystitis without hematuria (3) MDS (myelodysplastic syndrome): Status: Acute Code(s): D46.9 - Myelodysplastic syndrome, unspecified Plan: Impression: -MDS/MPF overlap syndrome. -Receiving weekly low dose decitabine with stable WBC counts. -Receiving Aranesp for anemia. -Platelet count normal and on Coumadin with no bleeding issue. -Clinical syndrome of colitis--Patient has not been neutropenic in months--doubt typhilitis. Etiology not clear. -Increase in WBC with immature granulocytes--likely leukemoid reaction. No evidence converting to AML -Increasing serum Cr. Recommendations: -Transfuse 1 unit RBCs for Hgb <7.5 g/dL and 2 units for Hgb < 7.0 g/dL. -Okay to continue Coumadin with monitoring of INR. -Consider hydration. -Consider GI consultation. HPI Consult Data Date of Service:: 08/20/21 PCP / Referring Provider: Osiel Arzola Attending: Dr. Shey Kunz MD Chief Complaint Chief Complaint: MDS/MPF History of Present Illness History of Present Illness: Per Dr. 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 ?She was doing well until November of this year when she presented with a urinary tract infection and GI bleeding. ?She was transferred to [facility] with an elevated WBC with myeloblasts and severe anemia. ?She was seen by GI and was transfused for anemia. 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 She was discharged home and return for follow-up care for her anemia.??Despite her anemia she has chronic fatigue and dyspnea on exertion. ?She noted no rectal bleeding or melena. ?She has stopped taking iron because of?GI upset. ?She is therapeutic on warfarin PT/INR of 2.4.??She also complained of increased edema.??She denied dizziness or lightheadedness. ?No chest pain, palpitation, or shortness of breath at rest. Current treatment: Decitabine?0.2mg/Kg sq?weekly Aranesp?300mcg sq?every 2 weeks Admitted for worsening abdominal pain. CT suggestive of colitis. On antibiotics with increasing WBC count. No fever. She endorses appetite had been normal. Denied n/v. Hasn't had BM since admission. No bleeding issues on Coumadin. Advanced Directives Power of Rattan Worker: No Living Will: No [facility] Medical History Abnormal stress test Atherosclerosis of coronary artery bypass graft(s), unspecified, with other forms of angina pectoris Atherosclerotic heart disease of [place] coronary artery without angina pectoris Benign hypertension Diabetes mellitus, type 2 Diverticulitis GERD (gastroesophageal reflux disease) History of DVT (deep vein thrombosis) History of esophageal stricture History of pulmonary embolism Hyperlipidemia Ischemic cardiomyopathy LBBB (left bundle branch block) Obesity Systolic CHF, chronic Thrombocytopenia Thromboembolic disorder Home Medications calcium carbonate-vitamin D3 1 each PO DAILY 03/08/17 [History Last Taken 05/24/21] cyanocobalamin (vitamin B-12) 500 mcg PO DAILY@0800 12/07/17 [History Last Taken 05/24/21] nitroglycerin 0.4 mg sublingual tablet 0.4 mg SL Q5-15M PRN #25 tablet 12/12/19 [Rx Last Taken Unknown] folic acid 1 mg PO DINNER 11/10/20 [History Last Taken 05/24/21 18:00] methocarbamol 500 mg tablet 500 mg PO TID tablet 11/26/20 [History Last Taken 05/24/21] omeprazole 40 mg capsule,delayed release 40 mg PO BID cap 11/26/20 [History Last Taken 05/24/21 18:00] isosorbide mononitrate 60 mg tablet,extended release 24 hr 60 mg PO DAILY #90 tablet 12/02/20 [Rx Last Taken 05/24/21] gabapentin 600 mg tablet 600 mg PO 4X/DAY tab 12/11/20 [History Last Taken 05/24/21] ranolazine 500 mg tablet,extended release,12 hr 500 mg PO BID #180 tab 12/23/20 [Rx Last Taken 05/24/21] acetaminophen 325 mg capsule 650 mg PO Q8H PRN cap 01/06/21 [History Last Taken Unknown] lactobacillus combination no.9 4 billion cell capsule 4,000 mmu cells PO DAILY 01/06/21 [History Last Taken Unknown] buprenorphine 1 patch TRANSDERMAL SA 01/21/21 [History Last Taken 05/24/21] hydrocodone-acetaminophen 1 tab PO Q6H PRN PRN 3 Days #12 tablet 01/21/21 [Rx Last Taken Unknown] nitrofurantoin monohyd/m-cryst [Macrobid] 100 mg PO DAILY@1800 01/21/21 [History Last Taken 05/24/21] sacubitril 49 mg-valsartan 51 mg tablet 1 tab PO BID #60 tab 04/16/21 [Rx Last Taken 05/24/21] furosemide 40 mg tablet 60 mg PO DAILY tab 04/17/21 [History Last Taken 05/24/21] metoprolol succinate [Toprol XL] 12.5 mg PO DAILY 05/25/21 [History Last Taken 05/24/21] rosuvastatin 40 mg PO QHS 05/25/21 [History Last Taken 05/24/21 20:00] warfarin 2 mg PO DAILY 05/25/21 [History Last Taken 05/24/21 18:00] clindamycin HCl 300 mg PO 4X/DAY 6 Days #48 cap 05/29/21 [Rx Last Taken Unknown] fosfomycin tromethamine 3 g PO QODAY 08/18/21 [History Last Taken Unknown] potassium chloride 10 meq PO DAILY 08/18/21 [History Last Taken Unknown] spironolactone 25 mg PO DAILY 08/18/21 [History Last Taken Unknown] Allergy/AdvReac Type Severity Reaction Status Date / Time doxycycline Allergy Mild Swelling Verified 08/18/21 01:26 allopurinol Allergy Unknown Angioedema Verified 08/18/21 01:26 Sulfa (Sulfonamide Allergy Rash Verified 08/18/21 01:26 Antibiotics) tetracycline [Tetracycline] Allergy difficulty Verified 08/18/21 01:26 breathing, rash metronidazole [From Flagyl] AdvReac Intermediate GI severe Verified 08/18/21 01:26 nausea WILDA Inhibitors AdvReac cough Verified 08/18/21 01:26 cephalexin [From Keflex] AdvReac Nausea/Vom/ Verified 08/18/21 01:26 Diarrhea dicyclomine AdvReac GI upset Verified 08/18/21 01:26 NSAIDS (Non-Steroidal AdvReac GI bleeding Verified 08/18/21 01:26 Anti-Inflamma oxycodone [From Percocet] AdvReac Upset Verified 08/18/21 01:26 Stomach Penicillins AdvReac Rash Verified 08/18/21 01:26 Family History Mother Myocardial infarction Hypertension Heart disease History of coronary artery bypass graft Brother Hypertension History of coronary artery bypass graft Father Cancer esophageal Surgical History Aortocoronary bypass status (~10/09/02) H/O arthroscopic knee surgery History of partial knee replacement History of total hysterectomy History of tubal ligation Hx of bilateral breast reduction surgery Hx of cholecystectomy Presence of implantable cardioverter-defibrillator (ICD) (10/22/20) Social History Smoking Status: Never smoker alcohol intake: never substance use type: does not use caffeine: Yes Type: carbonated beverages and coffee Number of servings: 3 what type of physical activity do you participate in: other details: cardiac rehab frequency: 3-4 times per week duration: 45-60 minutes/day seatbelt use: always do you feel safe at home: Yes Physical Exam GI soft to palpation GI Narrative: Minimal tenderness throughout. Vital Signs Temperature 98.5 F 08/20/21 08:30 Temperature Source Oral 08/20/21 08:30 Pulse Rate 101 H 08/20/21 08:30 Respiratory Rate 16 08/20/21 08:30 Respiratory Effort Non-Labored 08/19/21 20:00 Respiratory Depth Normal 08/19/21 20:00 Respiratory Pattern Normal 08/19/21 20:00 Blood Pressure 98/53 L 08/20/21 08:30 Blood Pressure Mean 68 08/20/21 08:30 Blood Pressure Source Monitor 08/20/21 08:30 Blood Pressure Position Sitting 08/20/21 08:30 Blood Pressure Location Left Arm 08/20/21 08:30 Pulse Ox 94 08/20/21 08:30 Oxygen Delivery Method Room Air 08/20/21 08:30 Laboratory Results - last 24 hr 08/19/21 05:50: Diff Path Review Reviewed 08/20/21 07:33: PT 25.7 H, INR 2.4 08/20/21 07:33: WBC 40.5 H*, RBC 2.54 L, Hgb 8.0 L, Hct 25.9 L, MCV 102.0 H, MCH 31.5, MCHC 30.9 L, RDW Std Deviation 84.6 H, RDW Coeff of Maty 23.1 H, Plt Count 276, Neut % (Auto) Not Reportable 08/20/21 07:33: Sodium 137, Potassium 3.8, Chloride 101, Carbon Dioxide 25.0, Anion Gap 11, BUN 16, Creatinine 1.37 H, Estim Creat Clear Calc 28.49, Est GFR (MDRD) Af Amer 47 L, Est GFR (MDRD) Non-Af 39 L, BUN/Creatinine Ratio 11.7, Glucose 86, Calcium 8.8, Total Bilirubin 0.40, AST 42 H, ALT 12 L, Alkaline Phosphatase 57, Total Protein 6.1 L, Albumin 2.3 L, Globulin 3.8, Albumin/Globulin Ratio 0.6 L Microbiology 08/18/21 04:05 Urine Catheter - Catheter Urine Culture - Final Klebsiella pneumoniae sp pneum Diagnostic Data Abdomen/Pelvis CT 08/18/21 02:08 IMPRESSION: Mild wall thickening involving the distal descending colon and sigmoid colon along with sigmoid diverticulosis. Findings probably represent diverticular disease. No pericolonic inflammatory changes to suggest acute diverticulitis. Mild colitis of the distal descending and sigmoid colon is a consideration. Mildly prominent loops of mid small bowel which may represent a developing small bowel obstruction. Small bilateral pleural effusions. Cardiomegaly. Moderate size hiatal hernia. Old granulomatous disease. Old compression fractures in the lower thoracic and lumbar spine. Electronically Signed: Benjamin Bucio MD at 3:33 EST , Service support ,
[2021-08-20 09:42] LABS: Anisocytosis 1+; Blast 4 % (0-0); Eosinophil 2 % (0-5); Lymphocyte 8 % (19-41); Metamyelocyte 14 % (0-1); Monocyte 31 % (0-10); Myelocyte 13 % (0-0); Neutrophil-Band 1 % (0-5); Neutrophil-Segmented 24 % (47-70); Platelet Estimate ADEQUATE (ADEQ); Promyelocyte 3 % (0-0); Red Cell Morphology N CHROM NORMAL (NORM C&C); Total Cells Counted 100 (MANUAL DIFF)
[2021-08-20 09:43] LABS: Absolute Lymphocyte Count 3.24 X10^3/uL (0.83-4.51); Absolute Neutrophil Count 10.1 X10^3/uL (2.0-7.7); Lymphocyte # 3.24 X10^3/ul (0.83-4.51)
[2021-08-20 10:06] VITALS: O2SAT 94
[2021-08-20 10:30] VITALS: BP 96/50; PULSE 101
[2021-08-20] MEDS: 0.9% Normal Saline 1,000 ML 100 ML IV (10:33)
[2021-08-20] MEDS: Magnesium Hydroxide 30 ML UDC PO (10:34)
[2021-08-20] MEDS: Potassium Chloride Oral Tablet 10 MEQ PO (10:34)
[2021-08-20] MEDS: Pantoprazole Sodium 40 MG Tablet PO ×2 (10:35→21:05)
[2021-08-20] MEDS: Cyanocobalamin 500 MCG Tablet PO (10:35)
[2021-08-20] MEDS: Menthol/Lanolin/Calamine/Znox 113 GM Tube 1 APPLIC TOPICAL ×2 (10:35→21:07)
[2021-08-20] MEDS: Senna/Docusate Sodium 1 Tablet 2 TABLET PO ×2 (10:35→21:05)
[2021-08-20] MEDS: Calcium Carb/Vitamin D 1 TABLET Tablet PO (10:35)
[2021-08-20] MEDS: Nystatin Powder 15gm Bottle 1 APPLIC TOPICAL ×2 (10:36→21:07)
--- NOTE | 2021-08-20 13:34 | PN.HOSP_ITS ---
Subjective Subjective Follow-up on acute colitis: Patient was seen and examined. She still complains of pain in the left lower quadrant. She also complains of constipation. She is not been eating out drinking enough. Objective Data Objective Data Vital Signs: Vital Signs Temp Pulse Resp BP Pulse Ox 98.5 F 101 H 16 96/50 L 94 08/20/21 08:30 08/20/21 10:30 08/20/21 08:30 08/20/21 10:30 08/20/21 10:06 Oxygen Delivery Method Room Air Weight: 82.8 kg Body Mass Index (BMI) 30.4 Intake & Output: Intake and Output for Last 24 Hours 08/18/21 08/19/21 08/20/21 23:59 23:59 23:59 Intake Total 1640 / 1690 750 / 750 350 / 350 Balance 1640 / 1690 750 / 750 350 / 350 Lab / Micro Data Result Diagrams: 08/20/21 07:33 08/20/21 07:33 Labs: Laboratory Results - last 24 hr 08/19/21 05:50: Diff Path Review Reviewed 08/20/21 07:33: PT 25.7 H, INR 2.4 08/20/21 07:33: WBC 40.5 H*, RBC 2.54 L, Hgb 8.0 L, Hct 25.9 L, MCV 102.0 H, MCH 31.5, MCHC 30.9 L, RDW Std Deviation 84.6 H, RDW Coeff of Maty 23.1 H, Plt Count 276, Neut % (Auto) Not Reportable, Absolute Neuts (auto) 10.1 H, Absolute Lymphs (auto) 3.24, Total Counted 100, Neutrophils % (Manual) 24 L, Band Neutrophils % 1, Lymphocytes % (Manual) 8 L, Monocytes % (Manual) 31 H, Eosinophils % (Manual) 2, Metamyelocytes % 14 H, Myelocytes % 13 H, Promyelocytes % 3 H, Blast Cells % 4 H*, Diff Path Review May foll, Platelet Estimate ADEQUATE, RBC Morphology N C HROM, Anisocytosis 1+ 08/20/21 07:33: Sodium 137, Potassium 3.8, Chloride 101, Carbon Dioxide 25.0, Anion Gap 11, BUN 16, Creatinine 1.37 H, Estim Creat Clear Calc 28.49, Est GFR (MDRD) Af Amer 47 L, Est GFR (MDRD) Non-Af 39 L, BUN/Creatinine Ratio 11.7, Glucose 86, Calcium 8.8, Total Bilirubin 0.40, AST 42 H, ALT 12 L, Alkaline Phosphatase 57, Total Protein 6.1 L, Albumin 2.3 L, Globulin 3.8, Albumin /Globulin Ratio 0.6 L Micro: Microbiology 08/18/21 04:05 Urine Catheter - Catheter Urine Culture - Final Klebsiella pneumoniae sp pneum 08/18/21 02:17 Nasal Secretion SARS-CoV-2 Antigen (Rapid) - Final Physical Exam Narrative Physical exam: General: Alert, Oriented x3, Cooperative, No apparent distress, Well developed HEENT: Atraumatic Oral: Moist Mucosa Neck: Supple Lungs: Clear to auscultation Cardiovascular: HS I+II, regular, no murmurs Abdomen: Bowel Sounds Present, Soft, slight tenderness in the left lower quadrant Extremities: No edema Assessment & Plan Assessment/Plan (1) Colitis: (2) UTI (urinary tract infection): QUALIFIERS: Urinary tract infection type: acute cystitis Hematuria presence: without hematuria Qualified Code(s): N30.00 - Acute cystitis without hematuria PLAN: 1. Acute colitis of the distal descending and sigmoid colon, noted on CT of the abdomen and pelvis Continue on IV Zosyn 2. Leukocytosis, history of myeloproliferative/myelodysplastic overlap syndrome Appreciate hematology consult -leukocytosis believe likely to be leukemoid 3. Dehydration, secondary to poor p.o. intake, creatinine appears to be creeping up Start patient on gentle IV fluids, repeat BMP in a.m. 4. Probable acute on chronic UTI, history of recurrent UTI Continue on IV Zosyn seen, follow-up on urine culture 5. History of DVT, on Coumadin, INR is therapeutic at 2.4 Trend INR 6. Chronic heart failure with reduced EF 40%,/CAD status post CABG/hypertension/hyperlipidemia Chronic meds held today on account of relative hypotension Monitor blood pressures; resume if blood pressures are better?spironolactone, statin, isosorbide, Ranexa, Lasix, metoprolol 7. History of DVT and PE Patient is on Coumadin INR is therapeutic. Coumadin continued. Trend PT/INR Charges/Coding Visit Charges Inpatient E&M: 36116 Subs Hosp L2
[2021-08-20 14:10] VITALS: BP 100/49; PULSE 100; RESP 16; TEMP 36.6; O2SAT 100
[2021-08-20] MEDS: Folic Acid 1 MG Tablet PO (17:06)
[2021-08-20] MEDS: Jantoven 2 MG Tablet PO (17:06)
[2021-08-20] MEDS: Morphine 2 MG/ML Syringe IV ×2 (18:37→21:38)
[2021-08-20 20:48] VITALS: BP 105/51; PULSE 96; RESP 18; TEMP 36.9; O2SAT 100
[2021-08-20] MEDS: Ranolazine 500 MG Tablet PO (21:05)
[2021-08-20] MEDS: ROSUVASTATIN CALCIUM 40 MG TABLET PO (21:05)
[2021-08-20] MEDS: SACUBITRIL/VALSARTAN 49-51 MG TABLET 1 EACH PO (21:05)
[2021-08-21 02:48] VITALS: BP 102/66; PULSE 98; RESP 18; TEMP 36.3; O2SAT 94
[2021-08-21] MEDS: Methocarbamol 500 MG Tablet PO ×2 (06:04→14:15)
[2021-08-21 07:19] LABS: Hematocrit 26.4 % (37-47); Hemoglobin 8.2 g/dL (12.0-15.0); Mean Corp Hgb Conc 31.1 g/dL (32-36); Mean Corpuscular Hgb 31.5 pg (27.0-32.0); Mean Corpuscular Volume 101.5 fL (81-99); POSITIVE COUNT YES; POSITIVE DIFFERENTIAL YES; POSITIVE MORPHOLOGY YES; Platelet Count 270 K/mm3 (150-450); RBC Distribution Width CV 23.1 % (11.6-14.6); RBC Distribution Width SD 82.5 fl (35.1-43.9)
[2021-08-21 07:24] LABS: International Normalized Ratio 2.4; Prothrombin Time (Protime)PT. 25.2 SECONDS (11.7-14.9)
[2021-08-21 07:26] LABS: Differential Indicated MANUAL DIFF
[2021-08-21 07:28] LABS: White Blood Count 44.1 K/mm3 (4.4-11.0)
[2021-08-21 07:49] LABS: ALB/GLOB Ratio 0.6 RATIO (0.9-2.4); AST(SGOT) 43 U/L (15-37); Alanine Aminotransfer ALT/SGPT 12 U/L (13-56); Albumin, Serum 2.3 g/dL (3.2-5.0); Alkaline Phosphatase 56 U/L (45-117); Anion Gap 11 (5-15); BUN 19 mg/dL (7-18); BUN/Creat Ratio 13.1 RATIO (10-20); Calcium,Total 8.7 mg/dL (8.5-10.1); Chloride 104 mmol/L (98-107); Creatinine, Serum 1.45 mg/dL (0.55-1.02); EST Glomerular Filtration Rate 37 mL/min (>60); Est Glom Filt Rate - Afr Amer 44 mL/min (>60); Estimated Creatinine Clearance 26.92 ml/min; Glucose 85 mg/dL (74-106); Potassium 3.4 mmol/L (3.5-5.1); Protein, Total 6.3 g/dL (6.4-8.2); Sodium Level 139 mmol/L (136-145)
[2021-08-21 08:10] VITALS: BP 119/63; PULSE 96; RESP 18; TEMP 36.6; O2SAT 98
[2021-08-21] MEDS: Cyanocobalamin 500 MCG Tablet PO (08:16)
[2021-08-21] MEDS: Calcium Carb/Vitamin D 1 TABLET Tablet PO (08:16)
[2021-08-21] MEDS: Isosorbide Mononitrate 60 MG Tablet PO (08:17)
[2021-08-21] MEDS: Nystatin Powder 15gm Bottle 1 APPLIC TOPICAL (08:17)
[2021-08-21] MEDS: SACUBITRIL/VALSARTAN 49-51 MG TABLET 1 EACH PO (08:17)
[2021-08-21] MEDS: Potassium Chloride Oral Tablet 10 MEQ PO (08:17)
[2021-08-21] MEDS: Spironolactone 25 MG Tablet PO (08:17)
[2021-08-21 08:18] VITALS: PULSE 96
[2021-08-21] MEDS: Ranolazine 500 MG Tablet PO (08:18)
[2021-08-21] MEDS: Metoprolol(XL)Succ 25 MG Tablet PO (08:18)
[2021-08-21] MEDS: Pantoprazole Sodium 40 MG Tablet PO (08:18)
[2021-08-21] MEDS: Menthol/Lanolin/Calamine/Znox 113 GM Tube 1 APPLIC TOPICAL (08:20)
[2021-08-21] MEDS: Senna/Docusate Sodium 1 Tablet 2 TABLET PO (08:24)
[2021-08-21 08:41] VITALS: O2SAT 98
[2021-08-21 09:07] LABS: Blast 3 % (0-0); Lymphocyte 15 % (19-41); Metamyelocyte 1 % (0-1); Monocyte 25 % (0-10); Myelocyte 20 % (0-0); Neutrophil-Band 8 % (0-5); Neutrophil-Segmented 28 % (47-70); Total Cells Counted 100 (MANUAL DIFF)
[2021-08-21 09:09] LABS: Absolute Neutrophil Count 15.9 X10^3/uL (2.0-7.7)
[2021-08-21 09:10] LABS: Absolute Lymphocyte Count 6.62 X10^3/uL (0.83-4.51); Anisocytosis 2+; Macrocytosis 1+; Microcytosis 1+
[2021-08-21] MEDS: 0.9% Normal Saline 1,000 ML 100 ML IV (14:14)
[2021-08-21] MEDS: Potassium Chloride Oral Tablet 20 MEQ PO (14:23)
[2021-08-21 14:43] VITALS: BP 96/60; PULSE 91; RESP 18; TEMP 36.4; O2SAT 95
[2021-08-21] MEDS: Acetaminophen 325 MG Tablet 650 MG PO (14:48)
--- NOTE | 2021-08-21 15:00 | CASEMGMT ---
Addendum entered by Howard Michelle 08/21/21 16:41: Discharge summary and instructions faxed to [facility] at this time. Original Note: KIRIT QUAN NOTE: Dr Kunz inquiring if pt may need SNF. PT/OT notes have been reviewed. Additional therapy recommended. KIRIT QUAN to room to talk w/pt. Pt states I want to go home. She states she feels safe returning home. She confirms she lives w/her and daughter. Her daughter does not work and helps to take care of both pt and her . is home all the time and states daughter is always there except for when she goes shopping or appts. She states her mostly cares for himself, but uses a walker and walks slowly. Dtr assists pt w/bathing as needed and dtr does all home mgmt tasks and assist w/med mgmt. Pt confirms she wishes to resume HHC w/[facility] and agreeable to having PT/OT added. She does not want an aide. Order placed for BUD for HHC: SN and PT/OT added. Pt denies other discharge needs or concerns. She states her daughter will be picking her up to take her home today. Dr Kunz made aware pt wishes to discharge home and will resume HHC w/therapy added. TC to Marco @ [facility]. VM left to inform him pt is being discharged today and that HHC order along w/discharge instructions would be faxed when available. Thompson ANNE RN, CM
--- NOTE | 2021-08-21 15:54 | PCM.DC ---
Discharge Instructions Diet Discharge Diet: Low fat / Low cholesterol, 2000 Calorie Control Diet and 2000 mg Sodium Diet Activity Discharge Activity: Return to Normal Activity Weight Bearing Status: Weight bearing as tolerated Follow Up Care Test Results: Test results from this visit will be discussed in further detail at your follow-up appointment, if applicable. Discharge Plan Admission Admit Date/Time: 08/18/21 05:49 Primary Reason for Your Visit: Acute colitis Attending Provider: Shey Kunz Primary Care Provider: Osiel Arzola Consulting Providers: Jose Gongora ; Jia Carroll ; Esther Warner ; He Beckwith ; Gallo Serrano Instructions Additional Instructions / Restrictions: Complete your antibiotics. Continue to keep yourself hydrated. You will be discharged with home health care. Discharge Orders/Prescriptions Prescriptions: New methocarbamol 500 mg Tablet 500 mg PO TID 30 Days Qty: 90 RF: 0 metoprolol succinate 25 mg Tablet Extended Release 24 Hr 25 mg PO DAILY 30 Days Qty: 30 RF: 0 amoxicillin-pot clavulanate [Augmentin] 500-125 mg tablet 1 tab PO BID 3 Days Qty: 6 RF: 0 Continued omeprazole 40 mg capsule,delayed release(DR/EC) 40 mg PO BID RF: 0 calcium carbonate-vitamin D3 1 EACH tablet 1 each PO DAILY RF: 0 gabapentin 600 mg tablet 600 mg PO 4X/DAY RF: 0 cyanocobalamin (vitamin B-12) 500 MCG tablet 500 mcg PO DAILY@0800 RF: 0 methocarbamol 500 mg tablet 500 mg PO TID RF: 0 folic acid 1 MG tablet 1 mg PO DINNER RF: 0 buprenorphine 15 mcg/hour Patch Weekly 1 patch TRANSDERMAL SA RF: 0 nitrofurantoin monohyd/m-cryst [Macrobid] 100 mg Capsule 100 mg PO DAILY@1800 RF: 0 hydrocodone-acetaminophen 1 TABLET tablet 1 tab PO Q6H PRN PRN (Reason: Pain) 3 Days Qty: 12 RF: 0 rosuvastatin 40 mg tablet 40 mg PO QHS RF: 0 warfarin 4 mg Tablet 2 mg PO DAILY RF: 0 potassium chloride 10 mEq capsule, extended release 10 meq PO DAILY RF: 0 fosfomycin tromethamine 3 gram packet 3 g PO QODAY RF: 0 spironolactone 25 mg tablet 25 mg PO DAILY RF: 0 nitroglycerin 0.4 mg tablet, sublingual 0.4 mg SL Q5-15M PRN (Reason: chest pain) Qty: 25 RF: 1 isosorbide mononitrate 60 mg tablet extended release 24 hr 60 mg PO DAILY Qty: 90 RF: 3 ranolazine 500 mg tablet extended release 12 hr 500 mg PO BID Qty: 180 RF: 3 Hold Instructions: Per [facility] discharge acetaminophen 325 mg capsule 650 mg PO Q8H PRN (Reason: Pain) RF: 0 Adult 50 Plus Probiotic 4 billion cell capsule 4,000 mmu cells PO DAILY RF: 0 Entresto 49-51 mg tablet 1 tab PO BID Qty: 60 RF: 11 Discontinued metoprolol succinate [Toprol XL] 25 mg Tablet Extended Release 24 Hr 12.5 mg PO DAILY RF: 0 clindamycin HCl 150 mg Capsule 300 mg PO 4X/DAY 6 Days Qty: 48 RF: 0 furosemide 40 mg tablet 60 mg PO DAILY RF: 0 Referrals / Follow Up: Osiel Arzola [Primary Care Provider] - Within 2 Weeks Disposition Disposition (needs filled in before D/C Order can be placed): Home Health Service
--- NOTE | 2021-08-21 16:13 | PCM.DC.SUM ---
Providers Date of Admission: 08/18/21 Date of Discharge: 08/21/21 Primary Care Physician: Osiel Arzola Consultations 08/19/21 12:35 Consult: Oncology/Hematology Routine Consulting Provider: TIM Hem/Onc Margarita Reason for Consult: Leucocytosis EMERGENT Consult: No MD Notified: Yes Date Notified: 08/19/21 Time Notified: 12:35 Method of Notification: Verbal Reason For Visit: ACUTE COLITIS Diagnosis Discharge Diagnosis (1) Colitis: Status: Acute Code(s): K52.9 - Noninfective gastroenteritis and colitis, unspecified (2) UTI (urinary tract infection): Status: Acute Code(s): N39.0 - Urinary tract infection, site not specified Qualifiers: Hematuria presence: without hematuria Urinary tract infection type: acute cystitis Qualified Code(s): N30.00 - Acute cystitis without hematuria (3) MDS (myelodysplastic syndrome): Status: Acute Code(s): D46.9 - Myelodysplastic syndrome, unspecified (4) Leukocytosis: Status: Acute Code(s): D72.829 - Elevated white blood cell count, unspecified Medications at Discharge Home Medications calcium carbonate-vitamin D3 1 each PO DAILY 03/08/17 cyanocobalamin (vitamin B-12) 500 mcg PO DAILY@0800 12/07/17 nitroglycerin 0.4 mg sublingual tablet 0.4 mg SL Q5-15M PRN #25 tablet 12/12/19 folic acid 1 mg PO DINNER 11/10/20 methocarbamol 500 mg tablet 500 mg PO TID tablet 11/26/20 omeprazole 40 mg capsule,delayed release 40 mg PO BID cap 11/26/20 isosorbide mononitrate 60 mg tablet,extended release 24 hr 60 mg PO DAILY #90 tablet 12/02/20 gabapentin 600 mg tablet 600 mg PO 4X/DAY tab 12/11/20 ranolazine 500 mg tablet,extended release,12 hr 500 mg PO BID #180 tab 12/23/20 acetaminophen 325 mg capsule 650 mg PO Q8H PRN cap 01/06/21 lactobacillus combination no.9 4 billion cell capsule 4,000 mmu cells PO DAILY 01/06/21 buprenorphine 1 patch TRANSDERMAL SA 01/21/21 hydrocodone-acetaminophen 1 tab PO Q6H PRN PRN 3 Days #12 tablet 01/21/21 nitrofurantoin monohyd/m-cryst [Macrobid] 100 mg PO DAILY@1800 01/21/21 sacubitril 49 mg-valsartan 51 mg tablet 1 tab PO BID #60 tab 04/16/21 rosuvastatin 40 mg PO QHS 05/25/21 warfarin 2 mg PO DAILY 05/25/21 fosfomycin tromethamine 3 g PO QODAY 08/18/21 potassium chloride 10 meq PO DAILY 08/18/21 spironolactone 25 mg PO DAILY 08/18/21 amoxicillin-pot clavulanate [Augmentin] 1 tab PO BID 3 Days #6 tab 08/21/21 methocarbamol 500 mg PO TID 30 Days #90 tab 08/21/21 metoprolol succinate 25 mg PO DAILY 30 Days #30 tab 08/21/21 Hospital Course Operations None Procedures None Summary of Care Provided Minutes Spent on Discharge: 45 Hospital Course: 80-year-old female with multiple comorbidities including MDS, hypertension, type II DM, ischemic cardiomyopathy, history of DVT/PE on Coumadin who comes in with complaints of worsening abdominal pain which is usually across her entire upper abdomen. This is associated with nausea but no vomiting or diarrhea. CT of the abdomen and pelvis in the ED showed mild wall thickening involving the distal descending colon and sigmoid colon along with sigmoid diverticulosis. This was suggestive of possible colitis. There was also a developing small bowel obstruction. Patient had old compression fractures in her lower thoracic and lumbar spine. She was on buprenorphine and oxycodone chronically at home. [facility] and started on IV Zosyn with improvement in her abdominal pain. She did not have any allergic reaction despite having a documented history of allergy to penicillin/Keflex. She also did not need any narcotic medication during this hospital stay. She was seen by PT and OT and home health was recommended. Patient lives at home and her daughter helps her. Patient had elevated leukocytosis (32,000-44,000) during this hospital stay. Oncology was consulted, felt it was due to a leukemoid reaction. She was discharged on 2 more days of Augmentin to make a total of 7 days. She will follow-up with oncology in 1 week as well as with her primary care doctor. She knows that she needs repeat blood work. Physical Exam Narrative Physical exam: General: Alert, Oriented x3, Cooperative, No apparent distress, Well developed HEENT: Atraumatic Oral: Moist Mucosa Neck: Supple Lungs: Clear to auscultation Cardiovascular: HS I+II, regular, no murmurs Abdomen: Bowel Sounds Present, Soft, Non Tender Extremities: No edema Weight / BMI Weight Weight: 82.8 kg Body Mass Index (BMI) 30.4 ABG / Lab / Microbiology Data Result Diagrams: 08/21/21 06:50 08/21/21 06:50 Laboratory: Laboratory Results - last 24 hr 08/21/21 06:50: PT 25.2 H, INR 2.4 08/21/21 06:50: WBC 44.1 H*, RBC 2.60 L, Hgb 8.2 L, Hct 26.4 L, MCV 101.5 H, MCH 31.5, MCHC 31.1 L, RDW Std Deviation 82.5 H, RDW Coeff of Maty 23.1 H, Plt Count 270, Neut % (Auto) Not Reportable, Absolute Neuts (auto) 15.9 H, Absolute Lymphs (auto) 6.62 H, Total Counted 100, Neutrophils % (Manual) 28 L, Band Neutrophils % 8 H, Lymphocytes % (Manual) 15 L, Monocytes % (Manual) 25 H, Metamyelocytes % 1, Myelocytes % 20 H, Blast Cells % 3 H*, Diff Path Review May foll, Anisocytosis 2+, Microcytosis 1+, Macrocytosis 1+ 08/21/21 06:50: Sodium 139, Potassium 3.4 L, Chloride 104, Carbon Dioxide 24.0, Anion Gap 11, BUN 19 H, Creatinine 1.45 H, Estim Creat Clear Calc 26.92, Est GFR (MDRD) Af Amer 44 L, Est GFR (MDRD) Non-Af 37 L, BUN/Creatinine Ratio 13.1, Glucose 85, Calcium 8.7, Total Bilirubin 0.50, AST 43 H, ALT 12 L, Alkaline Phosphatase 56, Total Protein 6.3 L, Albumin 2.3 L, Globulin 4.0, Albumin/Globulin Ratio 0.6 L Microbiology: Microbiology 08/18/21 03:10 Blood Culture (Wb) - Anticubital Right Blood Culture - Preliminary No growth in 48 hours. 08/18/21 03:10 Blood Culture (Wb) - Anticubital Left Blood Culture - Preliminary No growth in 48 hours. 08/18/21 04:05 Urine Catheter - Catheter Urine Culture - Final Klebsiella pneumoniae sp pneum 08/18/21 02:17 Nasal Secretion SARS-CoV-2 Antigen (Rapid) - Final D/C Instructions Discharge Diet: Low fat / Low cholesterol, 2000 Calorie Control Diet and 2000 mg Sodium Diet Weight Bearing Status: Weight bearing as tolerated Meaningful Use Info Meaningful Use Diagnoses (Choose all that apply): None applicable Discharge Plan Admission Admit Date/Time: 08/18/21 05:49 Primary Reason for Your Visit: Acute colitis Attending Provider: Shey Kunz Primary Care Provider: Osiel Arzola Consulting Providers: Jose Gongora ; Jia Carroll ; Esther Warner ; He Beckwith ; Gallo Serrano Instructions Additional Instructions / Restrictions: Complete your antibiotics. Continue to keep yourself hydrated. You will be discharged with home health care. Discharge Orders/Prescriptions Prescriptions: New methocarbamol 500 mg Tablet 500 mg PO TID 30 Days Qty: 90 RF: 0 metoprolol succinate 25 mg Tablet Extended Release 24 Hr 25 mg PO DAILY 30 Days Qty: 30 RF: 0 amoxicillin-pot clavulanate [Augmentin] 500-125 mg tablet 1 tab PO BID 3 Days Qty: 6 RF: 0 Continued omeprazole 40 mg capsule,delayed release(DR/EC) 40 mg PO BID RF: 0 calcium carbonate-vitamin D3 1 EACH tablet 1 each PO DAILY RF: 0 gabapentin 600 mg tablet 600 mg PO 4X/DAY RF: 0 cyanocobalamin (vitamin B-12) 500 MCG tablet 500 mcg PO DAILY@0800 RF: 0 methocarbamol 500 mg tablet 500 mg PO TID RF: 0 folic acid 1 MG tablet 1 mg PO DINNER RF: 0 buprenorphine 15 mcg/hour Patch Weekly 1 patch TRANSDERMAL SA RF: 0 nitrofurantoin monohyd/m-cryst [Macrobid] 100 mg Capsule 100 mg PO DAILY@1800 RF: 0 hydrocodone-acetaminophen 1 TABLET tablet 1 tab PO Q6H PRN PRN (Reason: Pain) 3 Days Qty: 12 RF: 0 rosuvastatin 40 mg tablet 40 mg PO QHS RF: 0 warfarin 4 mg Tablet 2 mg PO DAILY RF: 0 potassium chloride 10 mEq capsule, extended release 10 meq PO DAILY RF: 0 fosfomycin tromethamine 3 gram packet 3 g PO QODAY RF: 0 spironolactone 25 mg tablet 25 mg PO DAILY RF: 0 nitroglycerin 0.4 mg tablet, sublingual 0.4 mg SL Q5-15M PRN (Reason: chest pain) Qty: 25 RF: 1 isosorbide mononitrate 60 mg tablet extended release 24 hr 60 mg PO DAILY Qty: 90 RF: 3 ranolazine 500 mg tablet extended release 12 hr 500 mg PO BID Qty: 180 RF: 3 Hold Instructions: Per [facility] discharge acetaminophen 325 mg capsule 650 mg PO Q8H PRN (Reason: Pain) RF: 0 Adult 50 Plus Probiotic 4 billion cell capsule 4,000 mmu cells PO DAILY RF: 0 Entresto 49-51 mg tablet 1 tab PO BID Qty: 60 RF: 11 Discontinued metoprolol succinate [Toprol XL] 25 mg Tablet Extended Release 24 Hr 12.5 mg PO DAILY RF: 0 clindamycin HCl 150 mg Capsule 300 mg PO 4X/DAY 6 Days Qty: 48 RF: 0 furosemide 40 mg tablet 60 mg PO DAILY RF: 0 Referrals / Follow Up: Gallo Serrano DO [STAFF PHYSICIAN] - Within 1 Week Osiel Arzola [Primary Care Provider] - Within 2 Weeks Disposition Disposition (needs filled in before D/C Order can be placed): Home Health Service Charges/Coding Visit Charges Inpatient E&M: 16899 [facility]
[2021-08-21 16:48] VITALS: BP 96/60; PULSE 91; RESP 18; TEMP 36.4; O2SAT 95
--- NOTE | 2021-08-21 19:11 | NURSING ---
Daughter called into this nurse after patient got home. Wants a prescrition called into [facility] says pt is having abd pain now that she is home. Explained pt used tylenol here for back pain today and denied abd pain every time when asked. Pt ate breakfast lunch and dinner without pain before discharge. Text sent to discharge doc. Dr. Pena no respose back.
[2021-08-22 09:58] LABS: Pathologist Review Reviewed
[2021-08-22 10:10] LABS: Pathologist Review Reviewed
== END 2021-08-21 18:02 | disposition home health service (06) | DRG 392 ==
LOC: ED 06:03 → MS3 06:12
PROVIDERS: Admitting Provider Hospitalist; Emergency Provider Emergency Medicine; Visit Provider Internal Medicine
DX: K52.9 Noninfective gastroenteritis and colitis, unspecified (principal); I50.22 Chronic systolic (congestive) heart failure; N30.00 Acute cystitis without hematuria; K56.609 Unspecified intestinal obstruction, unspecified as to partial versus complete obstruction; M48.54XA Collapsed vertebra, not elsewhere classified, thoracic region, initial encounter for fracture; M48.56XA Collapsed vertebra, not elsewhere classified, lumbar region, initial encounter for fracture; I25.10 Atherosclerotic heart disease of native coronary artery without angina pectoris; Z79.01 Long term (current) use of anticoagulants; E78.5 Hyperlipidemia, unspecified; I11.0 Hypertensive heart disease with heart failure; D46.9 Myelodysplastic syndrome, unspecified; E86.0 Dehydration; K44.9 Diaphragmatic hernia without obstruction or gangrene; K73.2 Chronic active hepatitis, not elsewhere classified; Z87.440 Personal history of urinary (tract) infections; Z86.711 Personal history of pulmonary embolism; Z86.718 Personal history of other venous thrombosis and embolism; Z95.1 Presence of aortocoronary bypass graft; Z88.0 Allergy status to penicillin; K21.9 Gastro-esophageal reflux disease without esophagitis; I25.5 Ischemic cardiomyopathy; E11.9 Type 2 diabetes mellitus without complications; Z88.3 Allergy status to other anti-infective agents; Z82.49 Family history of ischemic heart disease and other diseases of the circulatory system; Z88.1 Allergy status to other antibiotic agents; Z88.2 Allergy status to sulfonamides; Z98.51 Tubal ligation status; Z90.710 Acquired absence of both cervix and uterus; Z90.49 Acquired absence of other specified parts of digestive tract
CPT/HCPCS: 36415; 74177; 80048; 80053; 80076; 81001; 82962; 83605; 83690; 84484; 85025; 85610; 85730; 87040; 87077; 87086; 87088; 87186; 87426; 97110; 97116; 97162; 97166; 97530; 97535; 99285; J7030; J7050; Q9967; A4216; J2405

== ENCOUNTER 2021-08-23 23:23 | Emergency (ER) | payer MEDICARE, SELFPAY ==
--- NOTE | 2021-08-23 00:40 | RAD_ITS ---
STUDY: X-RAY CHEST REASON FOR EXAM: Female, 80 years old. trauma chest pain. TECHNIQUE: Single AP portable view of the chest. COMPARISON: None. FINDINGS: Pacemaker is seen on the left side. The lungs are underexpanded. There is small left pleural effusion. Sternal cerclage wires and vascular clips are present from a prior sternotomy and coronary artery bypass graft procedure (CABG). Normal mediastinum and pranay. Normal visualized pulmonary arteries. Normal visualized aortic arch and descending thoracic aorta. Normal visualized thoracic spine. There is degenerative osteoarthritis of the bilateral shoulders. There is no demonstrated abnormality of the visualized soft tissue structures of the upper abdomen. RAD/Chest 1 View (Portable) IMPRESSION: Small left pleural effusion. Electronically Signed: Artis Minor MD at 1:33 EST Tel , Service support ,
[2021-08-23 23:24] VITALS: BP 117/62; PULSE 105; RESP 16; TEMP 36.6; O2SAT 96; BMI 32.4
--- NOTE | 2021-08-23 23:35 | ED.RN ---
Michelle, daughter, calls and reports mother has 3 compound fx in back and h/o osteoporosis. States she had tylenol and methocarbamol tonight at 2130 and had new butrans changed earlier today. She can be reached at [phone]
--- NOTE | 2021-08-23 23:40 | CT_ITS ---
STUDY: CT BRAIN WITHOUT CONTRAST REASON FOR EXAM: Female, 80 years old. trauma RADIATION DOSAGE (If Supplied By Facility): CTDIvol = ( 44.99 ) mGy, DLP = ( 812.98 ) mGycm TECHNIQUE: Transaxial CT imaging of the brain was performed without administration of intravenous contrast material. Individualized dose optimization techniques were used for this CT. COMPARISON: No relevant priors. FINDINGS: Normal soft tissue structures. Normal calvarium. There is mild cerebral atrophy with widening of the extra-axial spaces and ventricular dilatation. There are areas of decreased attenuation within the white matter tracts of the supratentorial brain, consistent with microvascular disease changes. Normal basal ganglia and thalami. Normal brainstem. Normal cerebellum. There is no intracranial hemorrhage. There are no findings of an acute ischemic infarction. Normal visualized paranasal sinuses. CT/Brain/Head without Contrast IMPRESSION: Chronic involutional changes of the brain. Electronically Signed: Artis Minor MD at 1:02 EST Tel , Service support ,
--- NOTE | 2021-08-23 23:40 | CT_ITS ---
STUDY: CT CERVICAL SPINE WITHOUT CONTRAST REASON FOR EXAM: Female, 80 years old. trauma RADIATION DOSAGE (If Supplied By Facility): CTDIvol = ( 23.23 ) mGy, DLP = ( 488.68 ) mGycm TECHNIQUE: High resolution transaxial imaging was performed without contrast material. Sagittal and coronal images were reconstructed. Individualized dose optimization techniques were used for this CT. COMPARISON: None FINDINGS: Normal craniovertebral junction. Normal anterior atlantoaxial articulation. Normal odontoid process. There is straightening of the normal cervical lordosis. Normal vertebral bodies and posterior osseous elements. C2-3: Normal endplates. Normal disc height and morphology. Normal central canal and intervertebral neuroforamina. C3-4, C4-5, C5-6, C6-7: Endplate spondylosis. Central and paracentral disc bulge. Degenerative changes of the bilateral facet joints and uncovertebral joints. [place] narrowing of the central canal and the bilateral intervertebral neural foramina. C7-T1: Normal endplates. Normal disc height and morphology. Normal central canal and intervertebral neuroforamina. Normal visualized soft tissue structures. CT/Spine Cervical without Contras IMPRESSION: Multilevel degenerative changes, as described above. Electronically Signed: Artis Minor MD at 1:03 EST Tel , Service support ,
--- NOTE | 2021-08-23 23:40 | CT_ITS ---
STUDY: CT THORACIC SPINE WITHOUT CONTRAST REASON FOR EXAM: Female, 80 years old. trauma RADIATION DOSAGE (If Supplied By Facility): CTDIvol = ( 42.66 ) mGy, DLP = ( 2039.32 ) mGycm TECHNIQUE: The patient was scanned in a multi detector CT scanner. High resolution imaging was performed. Images were obtained from to . Sagittal and coronal images were reconstructed. Individualized dose optimization techniques were used for this CT. COMPARISON: None. FINDINGS: Normal visualized cervical spine. There is an increased kyphosis of the thoracic spine. There is a mild levoscoliosis of the thoracic spine. There is multilevel endplate spondylosis of the thoracic spine. There is multilevel degenerative disc disease with loss of the disc space heights. New nondisplaced transverse fracture of T9. Old compression fracture of T12 and L1. The soft tissue structures are unremarkable. CT/Spine Thoracic without Contras IMPRESSION: New nondisplaced transverse fracture of T9. Old compression fracture of T12 and L1. Electronically Signed: Artis Minor MD at 1:21 EST Tel , Service support ,
--- NOTE | 2021-08-23 23:41 | EKG12_ITS ---
Test Reason : FALL Blood Pressure : / mmHG Vent. Rate : 098 BPM Atrial Rate : 098 BPM P-R Int : 184 ms QRS Dur : 134 ms QT Int : 384 ms P-R-T Axes : 085 -15 045 degrees QTc Int : 490 ms Normal sinus rhythm left bundle branch block Abnormal ECG Confirmed by KALE YADAV, MISTY ([id number]), newspaper photo editor SUMI ALMODOVAR ([id number]) on 08/26/2021 1:24:48 PM Referred By: PORFIRIO Confirmed By:MISTY HENLEY MD
--- NOTE | 2021-08-23 23:44 | EDS_ITS ---
HPI <Dr. Yves Delacruz MD - Last Filed: 08/25/21 16:26> History of Present Illness Chief Complaint: Fall Informant: patient Narrative Narrative: This patient has multiple medical problems. She was just discharged from the hospital couple days ago after UTI. She was trying to use her walker to get up one step in the house. She states that she lifted her walker and leaned forward and she just kept falling. She states she still somewhat weak from being in the hospital but she is getting better. She has not been having nausea vomiting or urinary symptoms now. She does not think she hit her head. She knows she did not lose consciousness. She states she landed on her back. She has primarily soreness in her left thoracic area. She states she really just could not get up and that is why she came in [facility]. She does live at home with her . She has history of prior compression fractures it sounds like. She denies syncope or near syncope. No palpitations. She does have a history of heart disease with atrial fibrillation and 6 vessel bypass. She is on Coumadin. She has an ICD. But she had no cardiac symptoms. I also looked at her visit summary recently. She had UTI. She also had leukemoid reaction with significantly high white count. Her INR is were relatively stable in the hospital. She has been on Coumadin since about 2002 she states. [facility] <Dr. Yves Delacruz MD - Last Filed: 08/25/21 16:26> [facility] Medical History Abnormal stress test Atherosclerosis of coronary artery bypass graft(s), unspecified, with other forms of angina pectoris Atherosclerotic heart disease of [place] coronary artery without angina pectoris Benign hypertension Diabetes mellitus, type 2 Diverticulitis GERD (gastroesophageal reflux disease) History of DVT (deep vein thrombosis) History of esophageal stricture History of pulmonary embolism Hyperlipidemia Ischemic cardiomyopathy LBBB (left bundle branch block) Obesity Systolic CHF, chronic Thrombocytopenia Thromboembolic disorder Home Medications calcium carbonate-vitamin D3 1 each PO DAILY 03/08/17 [History Last Taken 05/24/21] cyanocobalamin (vitamin B-12) 500 mcg PO DAILY@0800 12/07/17 [History Last Taken 05/24/21] nitroglycerin 0.4 mg sublingual tablet 0.4 mg SL Q5-15M PRN #25 tablet 12/12/19 [Rx Last Taken Unknown] folic acid 1 mg PO DINNER 11/10/20 [History Last Taken 05/24/21 18:00] omeprazole 40 mg capsule,delayed release 40 mg PO BID cap 11/26/20 [History Last Taken 05/24/21 18:00] isosorbide mononitrate 60 mg tablet,extended release 24 hr 60 mg PO DAILY #90 tablet 12/02/20 [Rx Last Taken 05/24/21] gabapentin 600 mg tablet 600 mg PO 4X/DAY tab 12/11/20 [History Last Taken 05/24/21] ranolazine 500 mg tablet,extended release,12 hr 500 mg PO BID #180 tab 12/23/20 [Rx Last Taken 05/24/21] acetaminophen 325 mg capsule 650 mg PO Q8H PRN cap 01/06/21 [History Last Taken Unknown] lactobacillus combination no.9 4 billion cell capsule 4,000 mmu cells PO DAILY 01/06/21 [History Last Taken Unknown] buprenorphine 1 patch TRANSDERMAL SA 01/21/21 [History Last Taken 05/24/21] hydrocodone-acetaminophen 1 tab PO Q6H PRN PRN 3 Days #12 tablet 01/21/21 [Rx Last Taken Unknown] nitrofurantoin monohyd/m-cryst [Macrobid] 100 mg PO DAILY@1800 01/21/21 [History Last Taken 05/24/21] sacubitril 49 mg-valsartan 51 mg tablet 1 tab PO BID #60 tab 04/16/21 [Rx Last Taken 05/24/21] rosuvastatin 40 mg PO QHS 05/25/21 [History Last Taken 05/24/21 20:00] warfarin 2 mg PO DAILY 05/25/21 [History Last Taken 05/24/21 18:00] fosfomycin tromethamine 3 g PO QODAY 08/18/21 [History Last Taken Unknown] potassium chloride 10 meq PO DAILY 08/18/21 [History Last Taken Unknown] spironolactone 25 mg PO DAILY 08/18/21 [History Last Taken Unknown] methocarbamol 500 mg PO TID 30 Days #90 tab 08/21/21 [Rx Last Taken Unknown] metoprolol succinate 12.5 mg PO DAILY 08/23/21 [History Last Taken Unknown] oxycodone-acetaminophen 1 tab PO Q6H PRN PRN 5 Days #20 tablet 08/24/21 [Rx Last Taken Unknown] furosemide 40 mg tablet 60 mg PO DAILY #135 tab 08/25/21 [Rx Last Taken Unknown] Allergy/AdvReac Type Severity Reaction Status Date / Time doxycycline Allergy Mild Swelling Verified 08/23/21 23:33 allopurinol Allergy Unknown Angioedema Verified 08/23/21 23:33 Sulfa (Sulfonamide Allergy Rash Verified 08/23/21 23:33 Antibiotics) tetracycline [Tetracycline] Allergy difficulty Verified 08/23/21 23:33 breathing, rash metronidazole [From Flagyl] AdvReac Intermediate GI severe Verified 08/23/21 23:33 nausea WILDA Inhibitors AdvReac cough Verified 08/23/21 23:33 cephalexin [From Keflex] AdvReac Nausea/Vom/ Verified 08/23/21 23:33 Diarrhea dicyclomine AdvReac GI upset Verified 08/23/21 23:33 NSAIDS (Non-Steroidal AdvReac GI bleeding Verified 08/23/21 23:33 Anti-Inflamma oxycodone [From Percocet] AdvReac Upset Verified 08/23/21 23:33 Stomach Penicillins AdvReac Rash Verified 08/23/21 23:33 Family History Mother Myocardial infarction Hypertension Heart disease History of coronary artery bypass graft Brother Hypertension History of coronary artery bypass graft Father Cancer esophageal Surgical History Aortocoronary bypass status (~10/09/02) H/O arthroscopic knee surgery History of partial knee replacement History of total hysterectomy History of tubal ligation Hx of bilateral breast reduction surgery Hx of cholecystectomy Presence of implantable cardioverter-defibrillator (ICD) (10/22/20) Social History Smoking Status: Never smoker alcohol intake: never substance use type: does not use caffeine: Yes Type: carbonated beverages and coffee Number of servings: 3 what type of physical activity do you participate in: other details: cardiac rehab frequency: 3-4 times per week duration: 45-60 minutes/day seatbelt use: always do you feel safe at home: Yes ROS <Dr. Yves Delacruz MD - Last Filed: 08/25/21 16:26> ROS ED Constitutional Constitutional ED: Denies chills or fever(s) Eyes Eyes: Denies blurry vision ENT ENT ED: Denies sore throat Cardiovascular Cardiovascular: Denies chest pain or palpitations Respiratory/Chest Respiratory/Chest: Denies cough or dyspnea Gastrointestinal Gastrointestinal: Denies diarrhea, nausea or vomiting Genitourinary Genitourinary ED: Reports other Details: Recent UTI. ; Denies dysuria Musculoskeletal Musculoskeletal: Reports back pain and neck pain Integumentary Reports other Details: Contusion to back. Neurologic Neurologic: Denies headache(s), paresthesias or weakness Hematologic/Lymphatic Hematologic/Lymphatic: Reports easy bleeding and easy bruising Allergic/Immunologic Allergic/Immunologic ED: Denies mouth swelling or urticaria EXAM <Dr. Yves Delacruz MD - Last Filed: 08/25/21 16:26> Physical Exam Const Vital Signs: 08/23/21 23:24 08/23/21 23:31 08/24/21 01:46 Temperature 97.9 F Temperature Source Temporal Pulse Rate 105 H 90 Respiratory Rate 16 14 Respiratory Effort Normal Blood Pressure 117/62 Blood Pressure Mean 80 Pulse Ox 96 92 Oxygen Delivery Method Nasal Cannula Room Air Oxygen Flow Rate (L/min) 97 Positive well nourished, well developed and obese General Appearance ED: well developed and NAD Nutritional Appearance: obese HEENT HEENT Narrative: I do not see signs of contusions or abrasions on her head. atraumatic Eyes EOMs intact bilaterally Neck Neck Narrative: She does have mild tenderness down at approximately C6-C7. I do not see bruising in this area though. Chest Wall palpation of chest normal Chest Narrative: No anterior chest tenderness. However, there is a contusion at approximately T9 or T10 on her back just to the left of midline. Resp normal respiratory effort and clear to auscultation bilaterally Cardio Cardio Narrative: Quiet 1/6 murmur heard. ICD palpable in the left chest wall. Rate: regular rate Rhythm: abnormal rhythm GI normal to inspection, nondistended, normoactive bowel sounds and non-tender Palpation: soft Back/Spine Back/Spine Narrative: Contusion to the left of thoracic spine approximately T9/T10. There is some Extremity Extremity Narrative: Contusion to the left mid wilhelm anteriorly. No bony tenderness though. No deformity. No pain with motion of ankles knees or hips. Neuro oriented x3 Sensorium / Orientation: alert; Negative for orientation impaired, lethargic or stuporous Psych mental status grossly normal Skin Skin Narrative: Contusions as above. <Dr. Omari Wallace MD - Last Filed: 08/24/21 02:59> Physical Exam Const Vital Signs: 08/23/21 23:24 08/23/21 23:31 08/24/21 01:46 Temperature 97.9 F Temperature Source Temporal Pulse Rate 105 H 90 Respiratory Rate 16 14 Respiratory Effort Normal Blood Pressure 117/62 Blood Pressure Mean 80 Pulse Ox 96 92 Oxygen Delivery Method Nasal Cannula Room Air Oxygen Flow Rate (L/min) 97 MDM <Dr. Yves Delacruz MD - Last Filed: 08/25/21 16:26> [facility] Lab Data Labs: Laboratory Results - last 24 hr 08/24/21 00:40 Diff Path Review Reviewed Radiography Diagnostic Testing: Clinical Impression(s) from Imaging Studies Chest X-Ray 08/23/21 00:40 IMPRESSION: Small left pleural effusion. Electronically Signed: Artis Minor MD at 1:33 EST Tel , Service support , Brain CT 08/23/21 23:40 IMPRESSION: Chronic involutional changes of the brain. Electronically Signed: Artis Minor MD at 1:02 EST Tel , Service support , Cervical Spine CT 08/23/21 23:40 IMPRESSION: Multilevel degenerative changes, as described above. Electronically Signed: Artis Minor MD at 1:03 EST Tel , Service support , Thoracic Spine CT 08/23/21 23:40 IMPRESSION: New nondisplaced transverse fracture of T9. Old compression fracture of T12 and L1. Electronically Signed: Artis Minor MD at 1:21 EST Tel , Service support , Pelvis X-Ray 08/23/21 23:49 IMPRESSION: No acute bone injury of the pelvis. Electronically Signed: Artis Minor MD at 1:35 EST Tel , Service support , EKG Initial EKG: Comments: EKG G done for history of A. fib read by me shows normal sinus rhythm now. Overall rate of 98. No ventricular ectopy. There is nonspecific intraventricular conduction delay. No acute ST elevation or depression. SD interval is normal. QRS duration is long 134 ms. QTc is just a little long at 490. Overall similar complexes to 27 May 2021 <Dr. Omari Wallace MD - Last Filed: 08/24/21 02:59> [facility] Lab Data Attestation: I reviewed the patient's lab results. Labs: Laboratory Results - last 24 hr 08/24/21 00:40 Diff Path Review Reviewed Radiography Diagnostic Testing: Clinical Impression(s) from Imaging Studies Chest X-Ray 08/23/21 00:40 IMPRESSION: Small left pleural effusion. Electronically Signed: Artis Minor MD at 1:33 EST Tel , Service support , Brain CT 08/23/21 23:40 IMPRESSION: Chronic involutional changes of the brain. Electronically Signed: Artis Minor MD at 1:02 EST Tel , Service support , Cervical Spine CT 08/23/21 23:40 IMPRESSION: Multilevel degenerative changes, as described above. Electronically Signed: Artis Minor MD at 1:03 EST Tel , Service support , Thoracic Spine CT 08/23/21 23:40 IMPRESSION: New nondisplaced transverse fracture of T9. Old compression fracture of T12 and L1. Electronically Signed: Artis Minor MD at 1:21 EST Tel , Service support , Pelvis X-Ray 08/23/21 23:49 IMPRESSION: No acute bone injury of the pelvis. Electronically Signed: Artis Minor MD at 1:35 EST Tel , Service support , Single view chest x-ray reveals by polar pacemaker. Borderline cardiomegaly. Cardiac silhouette is unremarkable. Inspiratory volume is limited. Difficult to read because of slight rotation and decreased inspiratory volume. No obvious abnormality of the osseous structures. CT of the head was reviewed by me and reveals no evidence of subdural, epidural, traumatic subarachnoid hemorrhage or intraparenchymal contusion/hemorrhage. There is no evidence of skull fracture. CT of the cervical spine reveals degenerative changes. There is no evidence of fracture, subluxation or dislocation. There is no prevertebral soft tissue swelling. 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 CT of the thoracic spine reveals old compression fracture T12 and L1 and evidence of kyphoplasty. There is degenerative changes with osteophytes noted. There is no acute fracture noted. Awaiting interpretation of CT, cervical spine and thoracic spine by radiologist. Time of this addendum is 0103. Radiologist read was reviewed and there is evidence of a new nondisplaced transverse fracture of T9. This is a stable fracture. Discharge Plan Triage Chief Complaint: Fall ED Provider: Yves Delacruz Dx/Rx/DC Orders Clinical Impression: Injury due to fall, residential current use of anticoagulant, MDS (myelodysplastic syndrome), Fracture of transverse process of thoracic vertebra, Closed head injury, Acute cervical myofascial strain, Degenerative arthritis of cervical spine Instructions: ED Degenerative Disk Disease, ED Head Injury (Adult), ED Neck Sprain or Strain, ED Transverse Process Fracture Prescriptions: New oxycodone-acetaminophen [oxycodone-acetaminophen] 1 TABLET tablet 1 tab PO Q6H PRN PRN (Reason: pain) 5 Days Qty: 20 RF: 0 No Action omeprazole 40 mg capsule,delayed release(DR/EC) 40 mg PO BID RF: 0 calcium carbonate-vitamin D3 1 EACH tablet 1 each PO DAILY RF: 0 gabapentin 600 mg tablet 600 mg PO 4X/DAY RF: 0 cyanocobalamin (vitamin B-12) 500 MCG tablet 500 mcg PO DAILY@0800 RF: 0 folic acid 1 MG tablet 1 mg PO DINNER RF: 0 buprenorphine 15 mcg/hour Patch Weekly 1 patch TRANSDERMAL SA RF: 0 nitrofurantoin monohyd/m-cryst [Macrobid] 100 mg Capsule 100 mg PO DAILY@1800 RF: 0 hydrocodone-acetaminophen 1 TABLET tablet 1 tab PO Q6H PRN PRN (Reason: Pain) 3 Days Qty: 12 RF: 0 rosuvastatin 40 mg tablet 40 mg PO QHS RF: 0 warfarin 4 mg Tablet 2 mg PO DAILY RF: 0 potassium chloride 10 mEq capsule, extended release 10 meq PO DAILY RF: 0 fosfomycin tromethamine 3 gram packet 3 g PO QODAY RF: 0 spironolactone 25 mg tablet 25 mg PO DAILY RF: 0 methocarbamol 500 mg Tablet 500 mg PO TID 30 Days Qty: 90 RF: 0 metoprolol succinate 25 mg tablet extended release 24 hr 12.5 mg PO DAILY RF: 0 nitroglycerin 0.4 mg tablet, sublingual 0.4 mg SL Q5-15M PRN (Reason: chest pain) Qty: 25 RF: 1 isosorbide mononitrate 60 mg tablet extended release 24 hr 60 mg PO DAILY Qty: 90 RF: 3 ranolazine 500 mg tablet extended release 12 hr 500 mg PO BID Qty: 180 RF: 3 Hold Instructions: Per [facility] discharge acetaminophen 325 mg capsule 650 mg PO Q8H PRN (Reason: Pain) RF: 0 Adult 50 Plus Probiotic 4 billion cell capsule 4,000 mmu cells PO DAILY RF: 0 Entresto 49-51 mg tablet 1 tab PO BID Qty: 60 RF: 11 furosemide 40 mg tablet 60 mg PO DAILY Qty: 135 RF: 3 Primary Care Provider: Osiel Arzola Referrals: Osiel Arzola [Primary Care Provider] - 3-5 Days if not improving Disposition Disposition: Home, Self Care Discharge Date/Time: 08/24/21 03:30
--- NOTE | 2021-08-23 23:49 | RAD_ITS ---
STUDY: X-RAY - PELVIS REASON FOR EXAM: Female, 80 years old. trauma TECHNIQUE: One view of the pelvis was obtained. COMPARISON: None. FINDINGS: There is a non-specific bowel gas pattern. Normal visualized soft tissue structures. There is narrowing with cortical sclerosis and osteophyte formation of the sacroiliac joint consistent with degenerative osteoarthritic changes. Normal visualized bilateral superior and inferior pubic rami. Normal pubic symphysis. Normal ischial tuberosities. There are osteoarthritic changes of the right femoral head with marginal osteophyte formation. Normal right acetabulum. Normal right hip joint. There are osteoarthritic changes of the left femoral head with marginal osteophyte formation. Normal left acetabulum. Normal left hip joint. RAD/Pelvis 1 or 2 Views IMPRESSION: No acute bone injury of the pelvis. Electronically Signed: Artis Minor MD at 1:35 EST Tel , Service support ,
[2021-08-24] MEDS: HYDROcodone Bitartrate/Apap 5/325 Tablet PO (00:04)
[2021-08-24 00:31] LABS: Anion Gap 12 (5-15); BUN 19 mg/dL (7-18); BUN/Creat Ratio 12.9 RATIO (10-20); Calcium,Total 8.8 mg/dL (8.5-10.1); Chloride 103 mmol/L (98-107); Creatinine, Serum 1.47 mg/dL (0.55-1.02); EST Glomerular Filtration Rate 36 mL/min (>60); Est Glom Filt Rate - Afr Amer 44 mL/min (>60); Estimated Creatinine Clearance 26.55 ml/min; Glucose 107 mg/dL (74-106); Sodium Level 135 mmol/L (136-145)
[2021-08-24 00:45] LABS: Hematocrit 24.8 % (37-47); Hemoglobin 7.5 g/dL (12.0-15.0); Mean Corp Hgb Conc 30.2 g/dL (32-36); Mean Corpuscular Hgb 31.4 pg (27.0-32.0); Mean Corpuscular Volume 103.8 fL (81-99); POSITIVE COUNT YES; POSITIVE DIFFERENTIAL YES; POSITIVE MORPHOLOGY YES; Platelet Count 232 K/mm3 (150-450); RBC Distribution Width CV 23.5 % (11.6-14.6); RBC Distribution Width SD 86.3 fl (35.1-43.9); Red Blood Count 2.39 M/mm3 (4.2-5.4)
[2021-08-24 00:52] LABS: Differential Indicated MANUAL DIFF
[2021-08-24 00:53] LABS: International Normalized Ratio 2.6; Prothrombin Time (Protime)PT. 27.2 SECONDS (11.7-14.9)
[2021-08-24 00:57] LABS: White Blood Count 55.5 K/mm3 (4.4-11.0)
[2021-08-24 01:18] LABS: Eosinophil 2 % (0-5); Lymphocyte 13 % (19-41); Metamyelocyte 20 % (0-1); Monocyte 13 % (0-10); Myelocyte 12 % (0-0); Neutrophil-Band 3 % (0-5); Neutrophil-Segmented 33 % (47-70); Other WBC Type 4 %; Total Cells Counted 100 (MANUAL DIFF)
[2021-08-24 01:20] LABS: Absolute Lymphocyte Count 7.21 X10^3/uL (0.83-4.51); Absolute Neutrophil Count 37.7 X10^3/uL (2.0-7.7); Lymphocyte # 7.21 X10^3/ul (0.83-4.51); Neutrophil # 37.72 X10^3/uL (2.7-7.7)
[2021-08-24 01:21] LABS: Platelet Estimate ADEQUATE (ADEQ)
[2021-08-24 01:22] LABS: Anisocytosis 2+
[2021-08-24 01:28] LABS: Macrocytosis 1+; Microcytosis 1+
[2021-08-24 01:29] LABS: Red Cell Morphology N CHROM NORMAL (NORM C&C)
[2021-08-24 01:46] VITALS: PULSE 90; RESP 14; O2SAT 92
[2021-08-24 03:06] VITALS: PULSE 92; RESP 17; O2SAT 95
[2021-08-25 13:51] LABS: Pathologist Review Reviewed
== END 2021-08-24 03:30 | disposition home or self-care (01) ==
PROVIDERS: Emergency Provider Emergency Medicine; Visit Provider Emergency Medicine
DX: S22.079A Unspecified fracture of T9-T10 vertebra, initial encounter for closed fracture (principal); D46.9 Myelodysplastic syndrome, unspecified; I11.0 Hypertensive heart disease with heart failure; I50.22 Chronic systolic (congestive) heart failure; I25.708 Atherosclerosis of coronary artery bypass graft(s), unspecified, with other forms of angina pectoris; E11.9 Type 2 diabetes mellitus without complications; S09.90XA Unspecified injury of head, initial encounter; Z79.01 Long term (current) use of anticoagulants; I25.5 Ischemic cardiomyopathy; I25.10 Atherosclerotic heart disease of native coronary artery without angina pectoris; E78.5 Hyperlipidemia, unspecified; S16.1XXA Strain of muscle, fascia and tendon at neck level, initial encounter; M50.30 Other cervical disc degeneration, unspecified cervical region; Z98.1 Arthrodesis status; E66.9 Obesity, unspecified; W19.XXXA Unspecified fall, initial encounter; Y93.01 Activity, walking, marching and hiking; Y99.8 Other external cause status; Y92.019 Unspecified place in single-family (private) house as the place of occurrence of the external cause; Z95.1 Presence of aortocoronary bypass graft; Z95.810 Presence of automatic (implantable) cardiac defibrillator; Z79.899 Other long term (current) drug therapy; Z86.718 Personal history of other venous thrombosis and embolism; Z86.711 Personal history of pulmonary embolism
CPT/HCPCS: 70450; 71045; 72125; 72128; 72170; 80048; 85025; 85610; 93005; 99285; J7030

== ENCOUNTER 2021-08-26 08:48 | Outpatient (CLI) | payer MEDICARE, SELFPAY ==
[2021-08-26 11:05] LABS: International Normalized Ratio 3.2; Prothrombin Time (Protime)PT. 31.7 SECONDS (11.7-14.9)
== END 2021-08-26 23:59 | disposition short-term general hospital (02) ==
LOC: LAB 08:50
PROVIDERS: Visit Provider Internal Medicine Cardiovascular Disease
DX: I74.9 Embolism and thrombosis of unspecified artery (principal); Z86.718 Personal history of other venous thrombosis and embolism; Z79.01 Long term (current) use of anticoagulants
CPT/HCPCS: 36415; 85610

== ENCOUNTER 2021-09-11 17:16 | Observation (INO) | payer MEDICARE, SELFPAY ==
[2021-09-11] VITALS (11 sets, daily range): BP systolic 83–116; BP diastolic 47–59; PULSE 88–97; RESP 14–24; TEMP 36.2–36.8; O2SAT 88–98; BMI 33.3; BMI 31.6
--- NOTE | 2021-09-11 18:05 | EKG12_ITS ---
Test Reason : FALL Blood Pressure : / mmHG Vent. Rate : 090 BPM Atrial Rate : 090 BPM P-R Int : 182 ms QRS Dur : 136 ms QT Int : 384 ms P-R-T Axes : 062 -37 070 degrees QTc Int : 469 ms Normal sinus rhythm Left axis deviation Non-specific intra-ventricular conduction block Abnormal ECG Confirmed by LINDSAY YADAV, LEONOR ([id number]), video tape editor RAINER EUGENE ([id number] on 09/15/2021 10:55:56 AM Referred By: SALVADOR Confirmed By:LEONOR MONTOYA MD
--- NOTE | 2021-09-11 18:06 | EDS_ITS ---
HPI HPI - Fall History of Present Illness Chief Complaint: Fall Narrative Narrative: 80-year-old female presenting with generalized weakness and fatigue. Family states that today she slid off the toilet but did not reinjure her transverse process fracture or her back after the fall. They state that they brought her and for evaluation and somebody called them and told him the blood work in the 19 showed that she was anemic at 6.9. Patient's family states this is lower than usual. They deny any black or bloody stools. Patient is on Coumadin for history of DVT. Patient has no head injury today. Patient family does express concern that her legs are more swollen and he states that over the last few weeks she has had a [address] 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 Benign hypertension Diabetes mellitus, type 2 Diverticulitis GERD (gastroesophageal reflux disease) History of DVT (deep vein thrombosis) History of esophageal stricture History of pulmonary embolism Hyperlipidemia Ischemic cardiomyopathy LBBB (left bundle branch block) Obesity Systolic CHF, chronic Thrombocytopenia Thromboembolic disorder Home Medications calcium carbonate-vitamin D3 1 each PO DAILY 03/08/17 [History Last Taken 09/11/21] cyanocobalamin (vitamin B-12) 500 mcg PO DAILY@0800 12/07/17 [History Last Taken 09/11/21] nitroglycerin 0.4 mg sublingual tablet 0.4 mg SL Q5-15M PRN #25 tablet 12/12/19 [Rx Last Taken Unknown] omeprazole 40 mg capsule,delayed release 40 mg PO BID cap 11/26/20 [History Last Taken 09/11/21] isosorbide mononitrate 60 mg tablet,extended release 24 hr 60 mg PO DAILY #90 tablet 12/02/20 [Rx Last Taken 09/11/21] gabapentin 600 mg tablet 600 mg PO 4X/DAY tab 12/11/20 [History Last Taken 09/11/21] ranolazine 500 mg tablet,extended release,12 hr 500 mg PO BID #180 tab 12/23/20 [Rx Last Taken 09/11/21] lactobacillus combination no.9 4 billion cell capsule 4,000 mmu cells PO DAILY 01/06/21 [History Last Taken 09/10/21] buprenorphine 1 patch TRANSDERMAL SA 01/21/21 [History Last Taken 09/06/21] nitrofurantoin monohyd/m-cryst [Macrobid] 100 mg PO DAILY@1800 01/21/21 [History Last Taken 09/10/21] sacubitril 49 mg-valsartan 51 mg tablet 1 tab PO BID #60 tab 04/16/21 [Rx Last Taken 09/11/21] rosuvastatin 40 mg PO QHS 05/25/21 [History Last Taken 09/10/21] spironolactone 25 mg PO DAILY 08/18/21 [History Last Taken 09/11/21] methocarbamol 500 mg PO TID 30 Days #90 tab 08/21/21 [Rx Last Taken 09/11/21] metoprolol succinate 12.5 mg PO DAILY 08/23/21 [History Last Taken 09/11/21] coQ10 (ubiquinol) 100 mg PO DAILY 09/11/21 [History Last Taken 09/11/21] furosemide [Lasix] 120 mg PO DAILY 09/11/21 [History Last Taken 09/11/21] hydrocodone-acetaminophen 1 tab PO BID 09/11/21 [History Last Taken 09/11/21] warfarin 2 mg PO DAILY 09/11/21 [History Last Taken 09/10/21] Allergy/AdvReac Type Severity Reaction Status Date / Time doxycycline Allergy Mild Swelling Verified 09/11/21 19:15 allopurinol Allergy Unknown Angioedema Verified 09/11/21 19:15 Sulfa (Sulfonamide Allergy Rash Verified 09/11/21 19:15 Antibiotics) tetracycline [Tetracycline] Allergy difficulty Verified 09/11/21 19:15 breathing, rash metronidazole [From Flagyl] AdvReac Intermediate GI severe Verified 09/11/21 19:15 nausea WILDA Inhibitors AdvReac cough Verified 08/23/21 23:33 cephalexin [From Keflex] AdvReac Nausea/Vom/ Verified 09/11/21 19:15 Diarrhea dicyclomine AdvReac GI upset Verified 08/23/21 23:33 NSAIDS (Non-Steroidal AdvReac GI bleeding Verified 09/11/21 19:15 Anti-Inflamma oxycodone [From Percocet] AdvReac Upset Verified 09/11/21 19:15 Stomach Penicillins AdvReac Rash Verified 09/11/21 19:15 Family History Mother Myocardial infarction Hypertension Heart disease History of coronary artery bypass graft Brother Hypertension History of coronary artery bypass graft Father Cancer esophageal Surgical History Aortocoronary bypass status (~10/09/02) H/O arthroscopic knee surgery History of partial knee replacement History of total hysterectomy History of tubal ligation Hx of bilateral breast reduction surgery Hx of cholecystectomy Presence of implantable cardioverter-defibrillator (ICD) (10/22/20) Social History Smoking Status: Never smoker alcohol intake: never substance use type: does not use caffeine: Yes Type: carbonated beverages and coffee Number of servings: 3 what type of physical activity do you participate in: other details: cardiac rehab frequency: 3-4 times per week duration: 45-60 minutes/day seatbelt use: always do you feel safe at home: Yes ROS ROS ED Constitutional Constitutional ED: Denies chills or fever(s) Eyes Eyes: Denies blurry vision or diplopia ENT ENT ED: Denies rhinorrhea or sore throat Cardiovascular Cardiovascular: Denies chest pain or palpitations Respiratory/Chest Respiratory/Chest: Denies cough or dyspnea Gastrointestinal Gastrointestinal: Denies abdominal pain, nausea or vomiting Genitourinary Genitourinary ED: Denies dysuria or hematuria Musculoskeletal Musculoskeletal: Reports back pain; Denies arthralgias or myalgias Integumentary Denies Abrasions or rash Neurologic Neurologic: Denies headache(s) or paresthesias EXAM Physical Exam Const Vital Signs: 09/11/21 17:18 09/11/21 17:23 09/11/21 19:16 Temperature 98.2 F Temperature Source Oral Pulse Rate 92 89 Respiratory Rate 16 17 Respiratory Effort Normal Respiratory Depth Normal Respiratory Pattern Normal Blood Pressure 105/47 L 101/53 L Blood Pressure Mean 66 69 Pulse Ox 96 94 Oxygen Delivery Method Room Air Room Air Room Air Positive obese General Appearance ED: NAD Nutritional Appearance: obese HEENT Reports normocephalic atraumatic Eyes PERRL and EOMs intact bilaterally General Eye ED: Negative for pale conjunctiva or scleral icterus Neck full ROM Resp normal respiratory effort and clear to auscultation bilaterally Cardio regular rhythm GI non-tender and non-distended Palpation: soft Extremity normal capillary refill General Extremety ED: Yes normal exam except as noted General Extremity: normal exam except as noted Neuro CN's II-XII intact bilaterally, moves all extremities, no focal motor deficits and no sensory deficits noted Sensorium / Orientation: alert Psych mental status grossly normal Skin Rashes: no rashes MDM MDM MDM Narrative Medical decision making narrative: 80-year-old female presenting for generalized weakness. She did slide to the floor today but does state that she did not reinjure her back. The patient's family states he is just too weak to get around. She was notified by cardiology that the patient's hemoglobin is 6.9 on the last check. Today it is 6.6. There has been no report of black or bloody stools. Patient has a leukocytosis of 37.4 which is baseline for her. INR is therapeutic at 2.2. Creatinine is slightly elevated over baseline at 1.98 and she is given 500 cc of IV fluids. BUN is not significantly elevated. LFTs are unremarkable. BNP is elevated at 1591 however her chest x-ray shows no acute cardiopulmonary process on my interpretation radiologist agree. She is not hypoxic or tachypneic. Given her low hemoglobin I did check an occult stool and did acquire a good sample and this is negative for blood. Patient was discussed with the hospitalist due to the generalized weakness which family believes is due to anemia. Patient has not been seeing Dr. Warner recently due to follow-up as she is and has not had her Epogen shots. This is likely the cause of her anemia. After speaking with the hospitalist she recommend giving her at least 1 unit of PRBCs given this is the lowest hemoglobin she has had. Patient will be admitted to the medical floor. Impression: 1. Anemia 2. Generalized weakness Lab Data Attestation: I reviewed the patient's lab results. Labs: Laboratory Results - last 24 hr 09/11/21 09/11/21 09/11/21 18:25 18:25 18:25 WBC 37.4 H* RBC 2.08 L Hgb 6.6 L Hct 21.7 L MCV 104.3 H MCH 31.7 MCHC 30.4 L RDW Std Deviation 93.0 H RDW Coeff of Maty 25.8 H Plt Count 240 MPV TNP Neut % (Auto) Not Reportable Absolute Neuts (auto) 7.9 H Absolute Lymphs (auto) 7.10 H Total Counted 100 Neutrophils % (Manual) 18 L Band Neutrophils % 3 Lymphocytes % (Manual) 19 Monocytes % (Manual) 8 Metamyelocytes % 16 H Myelocytes % 32 H Promyelocytes % 2 H Blast Cells % 2 H* Differential Comment SEE COMMENTS Diff Path Review May foll Atypical Lymphocytes RARE Platelet Estimate ADEQUATE RBC Morphology N CHROM Polychromasia RARE Hypochromasia 1+ Anisocytosis 1+ Macrocytosis 1+ PT 23.4 H INR 2.2 Sodium 134 L Potassium 3.9 Chloride 103 Carbon Dioxide 22.0 Anion Gap 9 BUN 23 H Creatinine 1.98 H Estim Creat Clear Calc 19.71 Est GFR (MDRD) Af Amer 31 L Est GFR (MDRD) Non-Af 26 L BUN/Creatinine Ratio 11.6 Glucose 95 Calcium 8.9 Total Bilirubin 0.70 AST 58 H ALT 14 Alkaline Phosphatase 73 Troponin I High Sens 17 B-Natriuretic Peptide Total Protein 6.1 L Albumin 2.3 L Globulin 3.8 Albumin/Globulin Ratio 0.6 L Urine Color Urine Clarity Urine pH Ur Specific [place] Urine Protein Urine Glucose (UA) Urine Ketones Urine Occult Blood Urine Nitrite Urine Bilirubin Urine Urobilinogen Ur Leukocyte Esterase Urine RBC Urine WBC Ur Squamous Epith Cells Urine Bacteria Urine Mucus Blood Type Antibody Screen Crossmatch 09/11/21 09/11/21 09/11/21 18:25 18:25 18:25 WBC RBC Hgb Hct MCV MCH MCHC RDW Std Deviation RDW Coeff of Maty Plt Count MPV Neut % (Auto) Absolute Neuts (auto) Absolute Lymphs (auto) Total Counted Neutrophils % (Manual) Band Neutrophils % Lymphocytes % (Manual) Monocytes % (Manual) Metamyelocytes % Myelocytes % Promyelocytes % Blast Cells % Differential Comment Diff Path Review Atypical Lymphocytes Platelet Estimate RBC Morphology Polychromasia Hypochromasia Anisocytosis Macrocytosis PT INR Sodium Potassium Chloride Carbon Dioxide Anion Gap BUN Creatinine Estim Creat Clear Calc Est GFR (MDRD) Af Amer Est GFR (MDRD) Non-Af BUN/Creatinine Ratio Glucose Calcium Total Bilirubin AST ALT Alkaline Phosphatase Troponin I High Sens B-Natriuretic Peptide 1591.3 H Total Protein Albumin Globulin Albumin/Globulin Ratio Urine Color Urine Clarity Urine pH Ur Specific [place] Urine Protein Urine Glucose (UA) Urine Ketones Urine Occult Blood Urine Nitrite Urine Bilirubin Urine Urobilinogen Ur Leukocyte Esterase Urine RBC Urine WBC Ur Squamous Epith Cells Urine Bacteria Urine Mucus Blood Type AB POSITIVE Antibody Screen NEGATIVE Crossmatch See Detail 09/11/21 19:18 WBC RBC Hgb Hct MCV MCH MCHC RDW Std Deviation RDW Coeff of Maty Plt Count MPV Neut % (Auto) Absolute Neuts (auto) Absolute Lymphs (auto) Total Counted Neutrophils % (Manual) Band Neutrophils % Lymphocytes % (Manual) Monocytes % (Manual) Metamyelocytes % Myelocytes % Promyelocytes % Blast Cells % Differential Comment Diff Path Review Atypical Lymphocytes Platelet Estimate RBC Morphology Polychromasia Hypochromasia Anisocytosis Macrocytosis PT INR Sodium Potassium Chloride Carbon Dioxide Anion Gap BUN Creatinine Estim Creat Clear Calc Est GFR (MDRD) Af Amer Est GFR (MDRD) Non-Af BUN/Creatinine Ratio Glucose Calcium Total Bilirubin AST ALT Alkaline Phosphatase Troponin I High Sens B-Natriuretic Peptide Total Protein Albumin Globulin Albumin/Globulin Ratio Urine Color Yellow Urine Clarity Clear Urine pH 5.0 Ur Specific [place] 1.010 Urine Protein 15 H Urine Glucose (UA) Normal Urine Ketones Negative Urine Occult Blood 10 H Urine Nitrite Negative Urine Bilirubin Negative Urine Urobilinogen Normal Ur Leukocyte Esterase 100 H Urine RBC 0 SEEN Urine WBC 10-25 SEEN Ur Squamous Epith Cells 0 SEEN Urine Bacteria 2+ Urine Mucus 0 SEEN Blood Type Antibody Screen Crossmatch Radiography Diagnostic Testing: Clinical Impression(s) from Imaging Studies Chest X-Ray 09/11/21 18:28 IMPRESSION: No acute radiographic abnormalities. Electronically Signed: Jose G Romo MD at 19:14 EST , Discharge Plan Disposition Disposition: Acute Care Hospital [facility] Discharge Date/Time: 09/11/21 22:20
--- NOTE | 2021-09-11 18:28 | RAD_ITS ---
INDICATION: weakness EXAMINATION/TECHNIQUE: X-RAY - XR Chest 1 View COMPARISON: 08/24/2021. FINDINGS: Chronic lung changes. Tortuous and calcified thoracic aorta. The heart is mildly enlarged. Left-sided cardiac device. Median sternotomy wires present. No pleural effusion or pneumothorax. Degenerative changes of the thoracic spine. Multilevel vertebral augmentation. RAD/Chest 1 View (Portable) IMPRESSION: No acute radiographic abnormalities. Electronically Signed: Jose G Romo MD at 19:14 EST ,
[2021-09-11 18:52] LABS: Hematocrit 21.7 % (37-47); Hemoglobin 6.6 g/dL (12.0-15.0); Mean Corp Hgb Conc 30.4 g/dL (32-36); Mean Corpuscular Hgb 31.7 pg (27.0-32.0); Mean Corpuscular Volume 104.3 fL (81-99); POSITIVE COUNT YES; POSITIVE DIFFERENTIAL YES; POSITIVE MORPHOLOGY YES; Platelet Count 240 K/mm3 (150-450); RBC Distribution Width CV 25.8 % (11.6-14.6); Red Blood Count 2.08 M/mm3 (4.2-5.4)
[2021-09-11 18:58] LABS: International Normalized Ratio 2.2; Prothrombin Time (Protime)PT. 23.4 SECONDS (11.7-14.9)
[2021-09-11 19:05] LABS: ALB/GLOB Ratio 0.6 RATIO (0.9-2.4); AST(SGOT) 58 U/L (15-37); Alanine Aminotransfer ALT/SGPT 14 U/L (13-56); Albumin, Serum 2.3 g/dL (3.2-5.0); Alkaline Phosphatase 73 U/L (45-117); Anion Gap 9 (5-15); BUN 23 mg/dL (7-18); BUN/Creat Ratio 11.6 RATIO (10-20); Calcium,Total 8.9 mg/dL (8.5-10.1); Chloride 103 mmol/L (98-107); Creatinine, Serum 1.98 mg/dL (0.55-1.02); EST Glomerular Filtration Rate 26 mL/min (>60); Est Glom Filt Rate - Afr Amer 31 mL/min (>60); Estimated Creatinine Clearance 19.71 ml/min; Globulin 3.8 g/dL (2.2-4.2); Glucose 95 mg/dL (74-106); Potassium 3.9 mmol/L (3.5-5.1); Protein, Total 6.1 g/dL (6.4-8.2); Sodium Level 134 mmol/L (136-145); Troponin-I HS 17 pg/mL (3.0-54.0)
[2021-09-11 19:10] LABS: Differential Indicated MANUAL DIFF
[2021-09-11 19:12] LABS: White Blood Count 37.4 K/mm3 (4.4-11.0)
[2021-09-11 19:21] LABS: Blast 2 % (0-0); Lymphocyte 19 % (19-41); Metamyelocyte 16 % (0-1); Monocyte 8 % (0-10); Myelocyte 32 % (0-0); Neutrophil-Band 3 % (0-5); Neutrophil-Segmented 18 % (47-70); Promyelocyte 2 % (0-0); Total Cells Counted 100 (MANUAL DIFF)
[2021-09-11 19:29] LABS: Mucous, Urine 0 SEEN /hpf (<or=2+); Red Blood Cells-Urine 0 SEEN /hpf (0-5); Squamous Epithelial Cells - UA 0 SEEN /hpf (5-10)
[2021-09-11 19:31] LABS: Color, Urine Yellow (Yellow); Glucose, Dipstick Normal (Normal); Ketone-Dipstick Negative (Negative); Leukocyte Esterase-Dipstick 100 /ul (Negative); Nitrite-Dipstick Negative (Negative); Occult Blood-Urine 10 /ul (Negative); Protein-Dipstick 15 mg/dl (Negative); Urine Bilirubin Dipstick Negative (Negative); Urine Clarity Clear (Clear); Urine Urobilinogen Normal (Normal)
[2021-09-11 19:32] LABS: Absolute Neutrophil Count 7.9 X10^3/uL (2.0-7.7)
[2021-09-11 19:33] LABS: Anisocytosis 1+; Atypical Lymphocyte RARE %; Differential Comment SEE COMMENTS; Hypochromasia 1+; Macrocytosis 1+; Platelet Estimate ADEQUATE (ADEQ); Polychromasia RARE; Red Cell Morphology N CHROM NORMAL (NORM C&C)
[2021-09-11 19:44] LABS: Bacteria 2+ /hpf (None Seen); White Blood Cells 10-25 SEEN /hpf (0-5)
--- NOTE | 2021-09-11 20:50 | ED.RN ---
PATIENTS DAUGHTER LEFT AT THIS TIME SHE WANTS CALLED WITH UPDATES [phone] AVIVA
[2021-09-11] MEDS: Ondansetron 4 MG/2 ML Vial IV (20:53)
[2021-09-11] MEDS: oxyCODONE 5 MG Tablet PO (20:53)
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
[2021-09-11] MEDS: Pantoprazole Sodium 40 MG Tablet PO (23:25)
[2021-09-11] MEDS: HYDROcodone Bitartrate/Apap 5/325 Tablet PO (23:25)
[2021-09-11] MEDS: Methocarbamol 500 MG Tablet PO (23:25)
[2021-09-11] MEDS: Gabapentin 600 MG Tablet PO (23:25)
[2021-09-11] MEDS: Ranolazine 500 MG Tablet PO (23:25)
[2021-09-11 23:36] LABS: Bedside Glucose 79 mg/dL (70-110)
[2021-09-12] VITALS (7 sets, daily range): BP systolic 102–114; BP diastolic 46–65; PULSE 80–95; RESP 16–18; TEMP 36.4–36.7; O2SAT 91–94
[2021-09-12] MEDS: Furosemide 100 MG/10 ML Vial 60 MG IV (03:02)
[2021-09-12] MEDS: Methocarbamol 500 MG Tablet PO ×3 (06:22→21:39)
[2021-09-12 06:24] LABS: Hematocrit 25.5 % (37-47); Hemoglobin 7.8 g/dL (12.0-15.0); Mean Corp Hgb Conc 30.6 g/dL (32-36); Mean Corpuscular Hgb 30.7 pg (27.0-32.0); Mean Corpuscular Volume 100.4 fL (81-99); POSITIVE COUNT YES; POSITIVE DIFFERENTIAL YES; POSITIVE MORPHOLOGY YES; Platelet Count 220 K/mm3 (150-450); RBC Distribution Width CV 24.6 % (11.6-14.6); RBC Distribution Width SD 85.5 fl (35.1-43.9); Red Blood Count 2.54 M/mm3 (4.2-5.4)
[2021-09-12 06:27] LABS: Differential Indicated MANUAL DIFF
[2021-09-12 06:28] LABS: White Blood Count 33.8 K/mm3 (4.4-11.0)
[2021-09-12 06:30] LABS: Bedside Glucose 83 mg/dL (70-110)
[2021-09-12 06:37] LABS: Prothrombin Time (Protime)PT. 21.6 SECONDS (11.7-14.9)
[2021-09-12 06:55] LABS: ALB/GLOB Ratio 0.7 RATIO (0.9-2.4); AST(SGOT) 61 U/L (15-37); Alanine Aminotransfer ALT/SGPT 14 U/L (13-56); Albumin, Serum 2.3 g/dL (3.2-5.0); Alkaline Phosphatase 73 U/L (45-117); Anion Gap 8 (5-15); BUN 23 mg/dL (7-18); Calcium,Total 8.8 mg/dL (8.5-10.1); Chloride 103 mmol/L (98-107); Creatinine, Serum 1.77 mg/dL (0.55-1.02); EST Glomerular Filtration Rate 29 mL/min (>60); Est Glom Filt Rate - Afr Amer 35 mL/min (>60); Estimated Creatinine Clearance 22.05 ml/min; Globulin 3.5 g/dL (2.2-4.2); Glucose 82 mg/dL (74-106); Potassium 3.6 mmol/L (3.5-5.1); Protein, Total 5.8 g/dL (6.4-8.2); Sodium Level 135 mmol/L (136-145)
[2021-09-12 07:14] LABS: Eosinophil 1 % (0-5); Lymphocyte 18 % (19-41); Metamyelocyte 5 % (0-1); Monocyte 22 % (0-10); Myelocyte 10 % (0-0); Neutrophil-Band 6 % (0-5); Neutrophil-Segmented 30 % (47-70); Nucleated Red Bld Cells,Manual 1 % (0-5); Other WBC Type 8 %; Total Cells Counted 100 (MANUAL DIFF)
[2021-09-12 07:15] LABS: Absolute Neutrophil Count 17.2 X10^3/uL (2.0-7.7); Neutrophil # 17.23 X10^3/uL (2.7-7.7)
[2021-09-12 07:16] LABS: Absolute Lymphocyte Count 6.08 X10^3/uL (0.83-4.51); Lymphocyte # 6.08 X10^3/ul (0.83-4.51)
[2021-09-12 07:20] LABS: Anisocytosis 2+; Platelet Estimate ADEQUATE (ADEQ)
[2021-09-12 07:21] LABS: Macrocytosis 1+; Microcytosis 1+
[2021-09-12] MEDS: Pantoprazole Sodium 40 MG Tablet PO ×2 (09:04→21:39)
[2021-09-12] MEDS: Lidocaine 5% Patch 3 PATCH TOPICAL (09:04)
[2021-09-12] MEDS: Metoprolol(XL)Succ 25 MG Tablet 12.5 MG PO (09:05)
[2021-09-12] MEDS: Isosorbide Mononitrate 60 MG Tablet PO (09:05)
[2021-09-12] MEDS: Ranolazine 500 MG Tablet PO ×2 (09:05→21:39)
[2021-09-12] MEDS: Calcium Carb/Vitamin D 1 TABLET Tablet PO (09:06)
[2021-09-12] MEDS: Gabapentin 600 MG Tablet PO ×4 (09:06→21:38)
[2021-09-12] MEDS: Cyanocobalamin 500 MCG Tablet PO (09:07)
[2021-09-12] MEDS: HYDROcodone Bitartrate/Apap 5/325 Tablet PO ×2 (09:19→21:44)
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
--- NOTE | 2021-09-12 11:29 | CASEMGMT ---
Pt screened with [facility] Palliative Care Screening Tool due to readmission. Pt met criteria. Order received and emailed [facility] the referral.
[2021-09-12 11:51] LABS: Bedside Glucose 106 mg/dL (70-110)
--- NOTE | 2021-09-12 12:02 | CASEMGMT ---
Social Work Note NOE updated that pt is agreeable to SNF. SW in to speak with pt. NOE introduced self and role at [facility]. Patient was provided a list of SNF providers including quality and resource use data and consistent with the patient?s preferred geographic region, medical needs, and insurance network. NOE asked pt for SNF choices. Pt states I am not sure, I need to speak to my daughter. NOE informed pt that this worker can call her daughter Michelle. Pt agreeable to this worker calling Michelle. NOE placed a call to Michelle. NOE introduced self and role at [facility]. NOE spoke with Michelle about SNF places. NOE reviewed list of SNF with Michelle. Michelle's preferred provider is [facility]. Michelle states that pt will need transportation home from TCU. NOE placed a call to [facility] with TCU and provided referral. TCU is able to accept pt. Pt's insurance is waiving pre-certs so pt can admit to TCU today if medically cleared. If pt is not medically ready today, pt cannot discharge to TCU until Wednesday. Pt's family will need to bring in pt's Butrans patches. NOE updated pt's daughter Michelle on acceptance to TCU. NOE informed Michelle that she will need to bring in pt's Butrans patches. Michelle states she will bring in the Butrans patches tomorrow since that is when pt's patches are due to be changed. NOE updated pt on plan for pt to discharge to TCU. Physician updated. Plan: [facility] [employer]
[2021-09-12 12:45] LABS: Pathologist Review Reviewed
--- NOTE | 2021-09-12 14:08 | PN.HOSP_ITS ---
Subjective Subjective Patient seen and examined. She was responsive but lethargic. She had no active complaints and denied any fever, chills, shortness of breath, nausea vomiting or diarrhea. Review of systems is otherwise negative. She was on 2 L of oxygen at time I reviewed her but was weaned down to room air. Objective Data Objective Data Vital Signs: Vital Signs Temp Pulse Resp BP Pulse Ox 98.1 F 88 16 102/54 L 91 09/12/21 11:50 09/12/21 11:50 09/12/21 11:50 09/12/21 11:50 09/12/21 12:55 Oxygen Flow Rate (L/min) 2 Oxygen Delivery Method Room Air Weight: 190 lb 0.615 oz Body Mass Index (BMI) 31.6 Intake & Output: Intake and Output for Last 24 Hours 09/10/21 09/11/21 09/12/21 23:59 23:59 23:59 Intake Total 500 / 650 250 / 250 Output Total 750 / 750 Balance 500 / 650 -500 / -500 Lab / Micro Data Result Diagrams: 09/12/21 05:55 09/12/21 05:55 Labs: Laboratory Results - last 24 hr 09/11/21 18:25: WBC 37.4 H*, RBC 2.08 L, Hgb 6.6 L, Hct 21.7 L, MCV 104.3 H, MCH 31.7, MCHC 30.4 L, RDW Std Deviation 93.0 H, RDW Coeff of Maty 25.8 H, Plt Count 240, MPV TNP, Neut % (Auto) Not Reportable, Absolute Neuts (auto) 7.9 H, Absolute Lymphs (auto) 7.10 H, Total Counted 100, Neutrophils % (Manual) 18 L, Band Neutrophils % 3, Lymphocytes % (Manual) 19, Monocytes % (Manual) 8, Metamyelocytes % 16 H, Myelocytes % 32 H, Promyelocytes % 2 H, Blast Cells % 2 H*, Differential Comment SEE COMMENTS, Diff Path Review May foll, Atypical Lymphocytes RARE, Platelet Estimate ADEQUATE, RBC Morphology N CHROM, Polychromasia RARE, Hypochromasia 1+, Anisocytosis 1+, Macrocytosis 1+ 09/11/21 18:25: PT 23.4 H, INR 2.2 09/11/21 18:25: Sodium 134 L, Potassium 3.9, Chloride 103, Carbon Dioxide 22.0, Anion Gap 9, BUN 23 H, Creatinine 1.98 H, Estim Creat Clear Calc 19.71, Est GFR (MDRD) Af Amer 31 L, Est GFR (MDRD) Non-Af 26 L, BUN/Creatinine Ratio 11.6, Glucose 95, Calcium 8.9, Total Bilirubin 0.70, AST 58 H, ALT 14, Alkaline Phosphatase 73, Troponin I High Sens 17, Total Protein 6.1 L, Albumin 2.3 L, Globulin 3.8, Albumin/Globulin Ratio 0.6 L 09/11/21 18:25: B-Natriuretic Peptide 1591.3 H 09/11/21 18:25: Blood Type AB POSITIVE, Antibody Screen NEGATIVE 09/11/21 18:25: Crossmatch See Detail 09/11/21 19:18: Urine Color Yellow, Urine Clarity Clear, Urine pH 5.0, Ur Specific [place] 1.010, Urine Protein 15 H, Urine Glucose (UA) Normal, Urine Ketones Negative, Urine Occult Blood 10 H, Urine Nitrite Negative, Urine Bilirubin Negative, Urine Urobilinogen Normal, Ur Leukocyte Esterase 100 H, Urine RBC 0 SEEN, Urine WBC 10-25 SEEN, Ur Squamous Epith Cells 0 SEEN, Urine Bacteria 2+, Urine Mucus 0 SEEN 09/11/21 23:22: POC Glucose 79 09/12/21 05:55: WBC 33.8 H*, RBC 2.54 L, Hgb 7.8 L, Hct 25.5 L, MCV 100.4 H, MCH 30.7, MCHC 30.6 L, RDW Std Deviation 85.5 H, RDW Coeff of Maty 24.6 H, Plt Count 220, MPV TNP, Neut % (Auto) Not Reportable, Absolute Neuts (auto) 17.2 H, Absolute Lymphs (auto) 6.08 H, Total Counted 100, Neutrophils % (Manual) 30 L, Band Neutrophils % 6 H, Lymphocytes % (Manual) 18 L, Monocytes % (Manual) 22 H, Eosinophils % (Manual) 1, Metamyelocytes % 5 H, Myelocytes % 10 H, Other Cells % 8, Nucleated RBCs/100 WBC 1, Diff Path Review Reviewed, Platelet Estimate ADEQUATE, Anisocytosis 2+, Microcytosis 1+, Macrocytosis 1+ 09/12/21 05:55: PT 21.6 H, INR 2.0 09/12/21 05:55: Sodium 135 L, Potassium 3.6, Chloride 103, Carbon Dioxide 24.0, Anion Gap 8, BUN 23 H, Creatinine 1.77 H, Estim Creat Clear Calc 22.05, Est GFR (MDRD) Af Amer 35 L, Est GFR (MDRD) Non-Af 29 L, BUN/Creatinine Ratio 13.0, Glucose 82, Calcium 8.8, Total Bilirubin 0.90, AST 61 H, ALT 14, Alkaline Phosphatase 73, Total Protein 5.8 L, Albumin 2.3 L, Globulin 3.5, Albumin/Globulin Ratio 0.7 L 09/12/21 06:21: POC Glucose 83 09/12/21 11:46: POC Glucose 106 Micro: Microbiology 09/11/21 20:10 Stool Stool Occult Blood (DEMETRIUS) - Final Radiography Diagnostic Testing: Radiology Impression Chest X-Ray 09/11/21 18:28 IMPRESSION: No acute radiographic abnormalities. Electronically Signed: Jose G Romo MD at 19:14 EST , Physical Exam Const alert and no apparent distress Orientation / Consciousness: lethargic Exam Limitations: no limitations Nutritional Appearance: obese HEENT head/scalp atraumatic Head and Scalp: normocephalic Mouth: dry mucous membranes Eyes PERRL, EOMs intact bilaterally and conjunctivae normal Neck no lymphadenopathy and supple Resp normal respiratory effort, no retractions, no use of accessory muscles and clear to auscultation bilaterally Cardio regular rate, regular rhythm, S1 normal heart sound, S2 normal heart sound and no murmurs GI normal to inspection, nondistended, normoactive bowel sounds, soft to palpation, non-tender and non-distended Extremity normal to inspection, full ROM and no clubbing, cyanosis or edema Peripheral Pulses: Yes pulses 2+ throughout Skin no rashes or lesions noted Neuro CN's II-XII intact bilaterally Sensorium / Orientation: awake and alert Psych Psych Narrative: flat affect Assessment & Plan Assessment/Plan (1) MDS (myelodysplastic syndrome): (2) UTI (urinary tract infection): QUALIFIERS: Hematuria presence: without hematuria Urinary tract infection type: acute cystitis Qualified Code(s): N30.00 - Acute cystitis without hematuria (3) Anemia: QUALIFIERS: Anemia type: iron deficiency Iron deficiency anemia type: chronic blood loss Qualified Code(s): D50.0 - Iron deficiency anemia secondary to blood loss (chronic) PLAN: #Debility due to acute on chronic anemia and mechanical falls * Hb was 6.6 on admission. transfused with one unit of PRBC * PT/OT on board. Fall precautions * * #Acute on chronic anemia due to myelodysplastic syndrome * Hb was 6.6 on admission. S/p transfusion with one unit of PRBC * goal is to keep Hb >7 * follows up with oncology on outpatient basis * #Leucocytosis * wbc is elevated at 33K today. Was previouosly elevated during previous admission 3 weeks ago and hematology reviewed her then and thought it was due to a leukemoid reaction. * I spoke to her oncologist Dr. Cadena by phone today. He mentioned that in light of her having normal platelets, he thought this was likely a leukemoid react ion but wanted flow cytometry done on peripheral blood to see if there was any evidence of leukemia. This according to the lab will be a send out test * had blast cells with 3% which was similar to previous records. * No evidence of infection as she does not have a feverand also CXR showed no acute radiographic abnormalities. * UA showed 2+ bacteria, but she was recently treated for UTI a few weeks ago so this may be colonisation. Will check urine cultures. * #NIKHIL on CKD stage IIIb: * Creatinine was 1.98 with baseline creatinine around 1.3-1.4. Cr now 1.77 * Diuretics held on admission #Chronic heart failure with reduced ejection fraction: * She complained of lower extremity swelling and weight gain. 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 INR therapeutic #CAD s/p CABG: On atorvastatin #Compression fractures * imaging showed a nondisplaced transverse fracture of T9 with prior old compresion fracture of T12 and L1 * On buprenorphine patch. Patch to be replaced on Wednesday * also on oral hydrocodone. #Hypertension: on metoprolol DVT prophylaxis; not indicated as patient is on coumadin. INR is therapeutic. Disposition: for DC to TCU on Wednesday Charges/Coding Visit Charges Inpatient E&M: 42869 Subs Hosp L2
--- NOTE | 2021-09-12 15:28 | CASEMGMT ---
Social Work Note NOE reviewed chart. Pt to discharge to TCU Wednesday. NOE placed a call to Katharine with TCU and updated her. NOE placed a call to pt's daughter Michelle and updated her on plan for TCU Wednesday. Michelle states understanding. Green sheet on chart. Plan: TCU WEDNESDAY. Pt will need COVID test on day of discharge. 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
[2021-09-12 16:55] LABS: Bedside Glucose 104 mg/dL (70-110)
[2021-09-12] MEDS: Jantoven 2 MG Tablet PO (16:56)
[2021-09-12] MEDS: Glucerna Shake 120 ML LIQUID PO ×2 (17:00→21:38)
[2021-09-12] MEDS: Nitrofurantoin Macrocrystals 100 MG Capsule PO (17:01)
[2021-09-12] MEDS: 0.9% Saline Lock 10 ML Syringe IV (21:37)
[2021-09-12] MEDS: Atorvastatin Calcium 80 MG Tablet PO (21:38)
[2021-09-12 21:51] LABS: Bedside Glucose 104 mg/dL (70-110)
[2021-09-13] MEDS: Methocarbamol 500 MG Tablet PO ×3 (06:25→21:30)
[2021-09-13] MEDS: Lidocaine 5% Patch 3 PATCH TOPICAL (10:00)
[2021-09-13] MEDS: Pantoprazole Sodium 40 MG Tablet PO ×2 (10:00→21:30)
[2021-09-13] MEDS: Gabapentin 600 MG Tablet PO ×2 (10:00→14:00)
--- NOTE | 2021-09-13 10:13 | PN_ITS ---
DATE OF SERVICE: 09/13/2021 SUBJECTIVE Patient seen and examined today. She was more alert but had a flat affect and not very communicative. However she was able to tell me she had no complaints today. She denied being in pain but would not really answer any other questions. Urinalysis showed 4+ bacteria. Patient currently on Macrobid. She has otherwise remained hemodynamically stable. Const alert and no apparent distress Orientation / Consciousness: alert Exam Limitations: no limitations Nutritional Appearance: obese HEENT head/scalp atraumatic Head and Scalp: normocephalic Mouth: dry mucous membranes Eyes PERRL, EOMs intact bilaterally and conjunctivae normal Neck no lymphadenopathy and supple Resp normal respiratory effort, no retractions, no use of accessory muscles and clear to auscultation bilaterally Cardio regular rate, regular rhythm, S1 normal heart sound, S2 normal heart sound and no murmurs GI normal to inspection, nondistended, normoactive bowel sounds, soft to palpation, non-tender and non-distended Extremity normal to inspection, full ROM and no clubbing, cyanosis or edema Peripheral Pulses: Yes pulses 2+ throughout Skin no rashes or lesions noted Neuro CN's II-XII intact bilaterally Sensorium / Orientation: awake and alert Psych Psych Narrative: flat affect Assessment/Plan (1) MDS (myelodysplastic syndrome): (2) UTI (urinary tract infection): QUALIFIERS: Hematuria presence: without hematuria Urinary tract infection type: acute cystitis Qualified Code(s): N30.00 - Acute cystitis without hematuria (3) Anemia: QUALIFIERS: Anemia type: iron deficiency Iron deficiency anemia type: chronic blood loss Qualified Code(s): D50.0 - Iron deficiency anemia secondary to blood loss (chronic) PLAN: #Debility due to acute on chronic anemia and mechanical falls Hb was 6.6 on admission. transfused with one unit of PRBC Hb today is pending PT/OT on board. Fall precautions #Acute on chronic anemia due to myelodysplastic syndrome Hb was 6.6 on admission. S/p transfusion with one unit of PRBC goal is to keep Hb >7 follows up with oncology on outpatient basis Hb today is pending #Leucocytosis wbc was elevated at 33K. Was previously elevated during previous admission 3 weeks ago and hematology reviewed her then and thought it was due to a leukemoid reaction. Per discussion with her oncologist, this was likely a leukemoid reaction, but flow cytometry ordered on peripheral blood smear. This is a send out test. Urinalysis showed 4+ bacteria; on Macrobid as she has adverse reaction to penicillins and cephalosporins. Urine culture pending. #NIKHIL on CKD stage IIIb: Creatinine was 1.98 with baseline creatinine around 1.3-1.4. 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 INR has been therapeutic. INR is pending today #CAD s/p CABG: On atorvastatin #Compression fractures imaging showed a nondisplaced transverse fracture of T9 with prior old compression fracture of T12 and L1 On buprenorphine patch. Patch to be replaced on Wednesday also on oral hydrocodone. #Hypertension: on metoprolol DVT prophylaxis not indicated as patient is on Coumadin. INR is pending today. Goal is 2-3 Disposition: for DC to TCU on Wednesday
[2021-09-13] MEDS: Cyanocobalamin 500 MCG Tablet PO (11:05)
[2021-09-13] MEDS: Ranolazine 500 MG Tablet PO ×2 (11:05→21:30)
[2021-09-13] MEDS: BUPRENORPHINE 15 MCG/HR PATCH 1 EACH TD (13:30)
[2021-09-13] MEDS: Jantoven 2 MG Tablet PO (17:00)
[2021-09-13] MEDS: Nitrofurantoin Macrocrystals 100 MG Capsule PO (18:00)
[2021-09-13 19:02] LABS: Anion Gap 8 (5-15); BUN 22 mg/dL (7-18); BUN/Creat Ratio 13.2 RATIO (10-20); Chloride 104 mmol/L (98-107); Creatinine, Serum 1.67 mg/dL (0.55-1.02); EST Glomerular Filtration Rate 31 mL/min (>60); Est Glom Filt Rate - Afr Amer 38 mL/min (>60); Estimated Creatinine Clearance 23.37 ml/min; Glucose 86 mg/dL (74-106); Potassium 3.7 mmol/L (3.5-5.1); Sodium Level 136 mmol/L (136-145)
[2021-09-13 19:24] LABS: Bedside Glucose 95 mg/dL (70-110)
[2021-09-13 19:25] LABS: Bedside Glucose 126 mg/dL (70-110)
[2021-09-13 19:25] LABS: Bedside Glucose 102 mg/dL (70-110)
[2021-09-13] MEDS: Atorvastatin Calcium 80 MG Tablet PO (21:30)
[2021-09-13 23:36] LABS: Prothrombin Time (Protime)PT. 22.3 SECONDS (11.7-14.9)
[2021-09-14] VITALS (8 sets, daily range): BP systolic 113–120; BP diastolic 59–60; PULSE 98–105; RESP 16–18; TEMP 36.6–37; O2SAT 92–96
[2021-09-14 05:40] LABS: Hematocrit 26.7 % (37-47); Mean Corpuscular Hgb 30.7 pg (27.0-32.0); Mean Corpuscular Volume 102.3 fL (81-99); POSITIVE COUNT YES; POSITIVE DIFFERENTIAL YES; POSITIVE MORPHOLOGY YES; Platelet Count 172 K/mm3 (150-450); RBC Distribution Width CV 24.2 % (11.6-14.6); RBC Distribution Width SD 86.7 fl (35.1-43.9); Red Blood Count 2.61 M/mm3 (4.2-5.4)
[2021-09-14 05:51] LABS: Differential Indicated MANUAL DIFF; White Blood Count 37.8 K/mm3 (4.4-11.0)
[2021-09-14 05:57] LABS: Anion Gap 8 (5-15); BUN 19 mg/dL (7-18); BUN/Creat Ratio 13.2 RATIO (10-20); Calcium,Total 9.1 mg/dL (8.5-10.1); Chloride 104 mmol/L (98-107); Creatinine, Serum 1.44 mg/dL (0.55-1.02); EST Glomerular Filtration Rate 37 mL/min (>60); Est Glom Filt Rate - Afr Amer 45 mL/min (>60); Glucose 103 mg/dL (74-106); Potassium 3.6 mmol/L (3.5-5.1); Sodium Level 135 mmol/L (136-145)
[2021-09-14 06:26] LABS: Bedside Glucose 100 mg/dL (70-110)
[2021-09-14 07:23] LABS: Eosinophil 2 % (0-5); Lymphocyte 14 % (19-41); Metamyelocyte 9 % (0-1); Monocyte 26 % (0-10); Myelocyte 14 % (0-0); Neutrophil-Band 8 % (0-5); Neutrophil-Segmented 27 % (47-70); Total Cells Counted 100 (MANUAL DIFF)
[2021-09-14 07:25] LABS: Anisocytosis 1+; Hypochromasia 1+; Platelet Estimate ADEQUATE (ADEQ)
[2021-09-14 07:26] LABS: Absolute Lymphocyte Count 5.29 X10^3/uL (0.83-4.51); Absolute Neutrophil Count 13.2 X10^3/uL (2.0-7.7); Lymphocyte # 5.29 X10^3/ul (0.83-4.51); Neutrophil # 13.23 X10^3/uL (2.7-7.7)
[2021-09-14 09:32] LABS: Color, Urine Yellow (Yellow); Glucose, Dipstick NEGATIVE (Normal); Ketone-Dipstick 5 mg/dl (Negative); Mucous, Urine 0 SEEN /hpf (<or=2+); Protein-Dipstick 30 mg/dl (Negative); Urine Bilirubin Dipstick 1 mg/dL (Negative); Urine Clarity Sl Cloudy (Clear); Urine Urobilinogen 1 mg/dl (Normal)
[2021-09-14 09:33] LABS: Bacteria 4+ /hpf (None Seen); Fine Granular Cast- Urine 0-5 SEEN /lpf (0-5); Leukocyte Esterase-Dipstick 500 /ul (Negative); Nitrite-Dipstick Positive (Negative); Occult Blood-Urine 10 /ul (Negative); Red Blood Cells-Urine 0-5 SEEN /hpf (0-5); Renal Epithelial Cells 0-5 SEEN /hpf (0-5); Squamous Epithelial Cells - UA 0-5 SEEN /hpf (5-10); White Blood Cells >100 SEEN /hpf (0-5)
[2021-09-14] MEDS: Cyanocobalamin 500 MCG Tablet PO (09:35)
[2021-09-14] MEDS: Methocarbamol 500 MG Tablet PO ×2 (09:35→14:12)
[2021-09-14] MEDS: Calcium Carb/Vitamin D 1 TABLET Tablet PO ×2 (10:00→12:13)
[2021-09-14 10:54] LABS: Differential Indicated MANUAL DIFF; Hematocrit 23.9 % (37-47); Hemoglobin 7.4 g/dL (12.0-15.0); Mean Corpuscular Volume 103.5 fL (81-99); POSITIVE COUNT YES; POSITIVE DIFFERENTIAL YES; POSITIVE MORPHOLOGY YES; Platelet Count 179 K/mm3 (150-450); RBC Distribution Width CV 24.9 % (11.6-14.6); RBC Distribution Width SD 87.8 fl (35.1-43.9); Red Blood Count 2.31 M/mm3 (4.2-5.4)
--- NOTE | 2021-09-14 11:56 | DS.PCM_ITS ---
Providers Date of Admission: 09/11/21 Primary Care Physician: Osiel Arzola Reason For Visit: FTT ADULT, FALLS, ACUTE ON CHRONIC ANEMIA Diagnosis Discharge Diagnosis (1) MDS (myelodysplastic syndrome): Status: Acute Code(s): D46.9 - Myelodysplastic syndrome, unspecified (2) UTI (urinary tract infection): Status: Acute Code(s): N39.0 - Urinary tract infection, site not specified Qualifiers: Urinary tract infection type: acute cystitis Hematuria presence: without hematuria Qualified Code(s): N30.00 - Acute cystitis without hematuria (3) Anemia: Status: Acute Code(s): D64.9 - Anemia, unspecified Qualifiers: Anemia type: iron deficiency Iron deficiency anemia type: chronic blood loss Qualified Code(s): D50.0 - Iron deficiency anemia secondary to blood loss (chronic) Medications at Discharge Home Medications calcium carbonate-vitamin D3 1 each PO DAILY 03/08/17 cyanocobalamin (vitamin B-12) 500 mcg PO DAILY@0800 12/07/17 nitroglycerin 0.4 mg sublingual tablet 0.4 mg SL Q5-15M PRN #25 tablet 12/12/19 omeprazole 40 mg capsule,delayed release 40 mg PO BID cap 11/26/20 isosorbide mononitrate 60 mg tablet,extended release 24 hr 60 mg PO DAILY #90 tablet 12/02/20 gabapentin 600 mg tablet 600 mg PO 4X/DAY tab 12/11/20 ranolazine 500 mg tablet,extended release,12 hr 500 mg PO BID #180 tab 12/23/20 lactobacillus combination no.9 4 billion cell capsule 4,000 mmu cells PO DAILY 01/06/21 buprenorphine 1 patch TRANSDERMAL SA 01/21/21 sacubitril 49 mg-valsartan 51 mg tablet 1 tab PO BID #60 tab 04/16/21 rosuvastatin 40 mg PO QHS 05/25/21 spironolactone 25 mg PO DAILY 08/18/21 methocarbamol 500 mg PO TID 30 Days #90 tab 08/21/21 metoprolol succinate 12.5 mg PO DAILY 08/23/21 coQ10 (ubiquinol) 100 mg PO DAILY 09/11/21 furosemide [Lasix] 120 mg PO DAILY 09/11/21 hydrocodone-acetaminophen 1 tab PO BID 09/11/21 warfarin 2 mg PO DAILY 09/11/21 cefdinir 300 mg PO BID #14 cap 09/14/21 Hospital Course Operations None Procedures None Summary of Care Provided Minutes Spent on Discharge: 45 Hospital Course: Patient is an 80-year-old female with an extensive past medical history as outlined which includes myelodysplastic syndrome. She was admitted through the ED on 09/11/2021 with a complaint of increased weakness and debility. She had not seen her oncologist since July due to transportation issues. Daughter says she had been weak at home and had difficulty standing or even ambulating. She had also had lower extremity swelling. On admission her hemoglobin was found to be 6.6. She was admitted to be managed for acute on chronic anemia due to myelodysplastic syndrome. She was transfused with 1 unit of packed red blood cells. Patient was noted to have markedly elevated white cell count in the mid 30s. She had had such elevated white cell count previously when she was admitted about 3 weeks ago. At that time oncology was consulted and thought it was due to leukemoid reaction. I did discuss with her oncologist during this admission to and he also thought was likely leukemoid reaction but requested for flow cytometry of peripheral blood to be done. This was ordered and since it was a send out test, results were still pending at time of discharge. Urine showed 4+ bacteria. Due to her allergies, she had been on Macrobid which she was on chronically. Urine culture grew Klebsiella which was resistant to Macrobid. Patient has allergy to Keflex was listed as nausea, vomiting and diarrhea so after discussion with pharmacy, decision was made with patient on p.o. cefdinir 300 mg twice daily for 7 days. Her creatinine trended down as was elevated on admission and she was also managed for NIKHIL on CKD stage IIIb. Patient remained stable and was discharged to the transitional care unit on September 14, 2021. She is to follow-up with her primary care doctor and oncologist. Patient seen and examined prior to discharge. She had no active complaints. Review of systems otherwise negative. Labs and vitals reviewed. Home medication reviewed and reconciled. Physical Exam Const alert, oriented x3 and no apparent distress General Appearance: cooperative and comfortable Orientation / Consciousness: awake Exam Limitations: no limitations Nutritional Appearance: obese HEENT normocephalic and head/scalp atraumatic Eyes PERRL, EOMs intact bilaterally, conjunctivae normal and no scleral icterus Neck no lymphadenopathy and supple General: trachea midline Resp normal respiratory effort, normal air movement, no retractions, no use of accessory muscles and clear to auscultation bilaterally Resp Narrative: on 2L of oxygen by nasal canula Auscultation: diminished lung sounds Cardio regular rate, regular rhythm, S1 normal heart sound, S2 normal heart sound, no murmurs and peripheral pulses 2+ throughout GI normal to inspection, nondistended, normoactive bowel sounds, soft to palpation, non-tender and non-distended Extremity normal to inspection, full ROM and no clubbing, cyanosis or edema General Extremity: edema bilateral lower extremity Details: severe and no tenderness to palpation of joints or extremities Skin no rashes or lesions noted General Skin Exam: turgor normal Lesions: no lesions Rashes: no rashes Neuro CN's II-XII intact bilaterally, moves all extremities, no focal motor deficits and no sensory deficits noted Sensorium / Orientation: awake and alert Speech: speech normal Motor Exam: general weakness Psych thought process normal Psych Narrative: flat affect Appearance: appropriate Weight / BMI Weight Weight: 188 lb 14.978 oz Body Mass Index (BMI) 31.6 ABG / Lab / Microbiology Data Result Diagrams: 09/14/21 05:15 09/14/21 05:15 Laboratory: Laboratory Results - last 24 hr 09/13/21 03:05: Urine Color Yellow, Urine Clarity Sl Cloudy, Urine pH 5.0, Ur Specific [place] 1.020, Urine Protein 30 H, Urine Glucose (UA) NEGATIVE, Urine Ketones 5 H, Urine Occult Blood 10 H, Urine Nitrite Positive H, Urine Bilirubin 1 H, Urine Urobilinogen 1 H, Ur Leukocyte Esterase 500 H, Urine RBC 0-5 SEEN, Urine WBC >100 SEEN, Ur Squamous Epith Cells 0-5 SEEN, Ur Renal Epithelial Cell 0-5 SEEN, Urine Bacteria 4+, Fine Granular Casts 0-5 SEEN, Urine Mucus 0 SEEN 09/13/21 05:55: WBC Cancelled, Corrected WBC Cancelled, RBC Cancelled, Hgb Cancelled, Hct Cancelled, MCV Cancelled, MCH Cancelled, MCHC Cancelled, RDW Std Deviation Cancelled, RDW Coeff of Maty Cancelled, Plt Count Cancelled, MPV Cancelled, Immature Gran % (Auto) Cancelled, Neut % (Auto) Cancelled, Lymph % (Auto) Cancelled, [place] % (Auto) Cancelled, Eos % (Auto) Cancelled, Baso % (Auto) Cancelled, Absolute Neuts (auto) Cancelled, Absolute Lymphs (auto) Cancelled, Total Counted Cancelled, Neutrophils % (Manual) Cancelled, Band Neutrophils % Cancelled, Lymphocytes % (Manual) Cancelled, Monocytes % (Manual) Cancelled, Eosinophils % (Manual) Cancelled, Basophils % (Manual) Cancelled, Metamyelocytes % Cancelled, Myelocytes % Cancelled, Promyelocytes % Cancelled, Blast Cells % Cancelled, Plasma Cell % (Manual) Cancelled, Other Cells % Cancelled, Nucleated RBC % Cancelled, Nucleated RBCs/100 WBC Cancelled, Differential Comment Cance lled, Diff Path Review Cancelled, Hypersegmented Neuts Cancelled, Atypical Lymphocytes Cancelled, Reactive Lymphocytes Cancelled, Smudge Cells Cancelled, Toxic Granulation Cancelled, Toxic Vacuolation Cancelled, Dohle Bodies Cancelled, Dinesh Rods Cancelled, Platelet Estimate Cancelled, Plt Morphology Comment Cancelled, RBC Morphology Cancelled, Polychromasia Cancelled, Hypochromasia Cancelled, Poikilocytosis Cancelled, Basophilic Stippling Cancelled, Anisocytosis Cancelled, Microcytosis Cancelled, Macrocytosis Cancelled, Spherocytes Cancelled, Sickle Cells Cancelled, Target Cells Cancelled, Tear Drop Cells Cancelled, Ovalocytes Cancelled, Stomatocytes Cancelled, [place] Bodies Cancelled, [place] Cells Cancelled, Bite Cells Cancelled, Crenated Cell Cancelled, Acanthocytes (Spur) Cancelled, Rouleaux Cancelled, Schistocytes Cancelled 09/13/21 05:55: Sodium 136, Potassium 3.7, Chloride 104, Carbon Dioxide 24.0, Anion Gap 8, BUN 22 H, Creatinine 1.67 H, Estim Creat Clear Calc 23.37, Est GFR (MDRD) Af Amer 38 L, Est GFR (MDRD) Non-Af 31 L, BUN/Creatinine Ratio 13.2, Glucose 86, Calcium 9.0 09/13/21 06:15: POC Glucose 95 09/13/21 09:05: WBC 33.1 H*, RBC 2.31 L, Hgb 7.4 L, Hct 23.9 L, MCV 103.5 H, MCH 32.0, MCHC 31.0 L, RDW Std Deviation 87.8 H, RDW Coeff of Maty 24.9 H, Plt Count 179, Neut % (Auto) Not Reportable 09/13/21 10:55: PT 22.3 H, INR 2.0 09/13/21 11:39: POC Glucose 102 09/13/21 16:31: POC Glucose 126 H 09/14/21 05:15: WBC 37.8 H*, RBC 2.61 L, Hgb 8.0 L, Hct 26.7 L, MCV 102.3 H, MCH 30.7, MCHC 30.0 L, RDW Std Deviation 86.7 H, RDW Coeff of Maty 24.2 H, Plt Count 172, Neut % (Auto) Not Reportable, Absolute Neuts (auto) 13.2 H, Absolute Lymphs (auto) 5.29 H, Total Counted 100, Neutrophils % (Manual) 27 L, Band Neutrophils % 8 H, Lymphocytes % (Manual) 14 L, Monocytes % (Manual) 26 H, Eosinophils % (Manual) 2, Metamyelocytes % 9 H, Myelocytes % 14 H, Diff Path Review December, Platelet Estimate ADEQUATE, Hypochromasia 1+, Anisocytosis 1+ 09/14/21 05:15: Sodium 135 L, Potassium 3.6, Chloride 104, Carbon Dioxide 23.0, Anion Gap 8, BUN 19 H, Creatinine 1.44 H, Estim Creat Clear Calc 27.10, Est GFR (MDRD) Af Amer 45 L, Est GFR (MDRD) Non-Af 37 L, BUN/Creatinine Ratio 13.2, Glucose 103, Calcium 9.1 09/14/21 05:55: POC Glucose 100 Microbiology: Microbiology 09/13/21 03:05 Urine, Clean Catch Urine Culture - Preliminary GNR lactose biological science technician fish 09/11/21 20:10 Stool Stool Occult Blood (DEMETRIUS) - Final D/C Instructions Discharge Diet: Low fat / Low cholesterol Discharge Activity: Return to Normal Activity Weight Bearing Status: Weight bearing as tolerated Call your doctor if you observe: Fever of 101 or Higher, Shortness of breath, Dizziness, Swelling in the ankles and Increased palpitations (irregular heartbeat) Meaningful Use Info Meaningful Use Diagnoses (Choose all that apply): None applicable Discharge Plan Admission Admit Date/Time: 09/11/21 20:48 Primary Reason for Your Visit: debility, weakness, acute on chronic anemia Attending Provider: Kimberley Castle Primary Care Provider: Osiel Arzola Discharge Orders/Prescriptions Prescriptions: New cefdinir 300 mg capsule 300 mg PO BID Qty: 14 RF: 0 Continued omeprazole 40 mg capsule,delayed release(DR/EC) 40 mg PO BID RF: 0 calcium carbonate-vitamin D3 1 EACH tablet 1 each PO DAILY RF: 0 gabapentin 600 mg tablet 600 mg PO 4X/DAY RF: 0 cyanocobalamin (vitamin B-12) 500 MCG tablet 500 mcg PO DAILY@0800 RF: 0 buprenorphine 15 mcg/hour Patch Weekly 1 patch TRANSDERMAL SA RF: 0 rosuvastatin 40 mg tablet 40 mg PO QHS RF: 0 spironolactone 25 mg tablet 25 mg PO DAILY RF: 0 methocarbamol 500 mg Tablet 500 mg PO TID 30 Days Qty: 90 RF: 0 metoprolol succinate 25 mg tablet extended release 24 hr 12.5 mg PO DAILY RF: 0 furosemide [Lasix] 40 mg tablet 120 mg PO DAILY RF: 0 hydrocodone-acetaminophen 1 TABLET tablet 1 tab PO BID RF: 0 coQ10 (ubiquinol) 100 mg Capsule 100 mg PO DAILY RF: 0 warfarin 2 mg tablet 2 mg PO DAILY RF: 0 nitroglycerin 0.4 mg tablet, sublingual 0.4 mg SL Q5-15M PRN (Reason: chest pain) Qty: 25 RF: 1 isosorbide mononitrate 60 mg tablet extended release 24 hr 60 mg PO DAILY Qty: 90 RF: 3 ranolazine 500 mg tablet extended release 12 hr 500 mg PO BID Qty: 180 RF: 3 Hold Instructions: Per [facility] discharge Adult 50 Plus Probiotic 4 billion cell capsule 4,000 mmu cells PO DAILY RF: 0 Entresto 49-51 mg tablet 1 tab PO BID Qty: 60 RF: 11 Discontinued nitrofurantoin monohyd/m-cryst [Macrobid] 100 mg Capsule 100 mg PO DAILY@1800 RF: 0 Referrals / Follow Up: Esther Warner MD [STAFF PHYSICIAN] - Within 1 Week Osiel Arzola [Primary Care Provider] - Within 2 Weeks Disposition Disposition (needs filled in before D/C Order can be placed): Shelter Facility Charges/Coding Visit Charges Inpatient E&M: 46944 Disch Hosp
[2021-09-14] MEDS: Gabapentin 600 MG Tablet PO ×2 (12:12→14:12)
[2021-09-14] MEDS: Ranolazine 500 MG Tablet PO (12:13)
[2021-09-14] MEDS: Pantoprazole Sodium 40 MG Tablet PO (12:13)
[2021-09-14] MEDS: Isosorbide Mononitrate 60 MG Tablet PO (12:14)
[2021-09-14] MEDS: Metoprolol(XL)Succ 25 MG Tablet 12.5 MG PO (12:15)
[2021-09-14] MEDS: Lidocaine 5% Patch 3 PATCH TOPICAL (12:24)
--- NOTE | 2021-09-14 12:25 | PCM.TXEXTCAR ---
Diet 09/14/21 10:10 Diet: Regular - No Added Salt Food consistency:: Pureed Liquid Consistency:: Regular/Thin Is pt able to select menu?: Yes Diet Comments: NO STRAWS; TOTAL FEED; 4 oz glucerna shake 4x/day w/ medpass Routine Orders/Code Status Enema Type: Fleetz Enema Frequency: Daily PRN Suppository Type: Dulcolax 10mg Suppository Frequency: Daily PRN O2 Frequency: PRN Keep PO Greater than or Equal to (%): 90 Therapies Weight Bearing: Weight bearing as tolerated Physical Therapy: Eval and Treat Occupational Therapy: Eval and Treat Problem/Diagnosis (1) MDS (myelodysplastic syndrome): Status: Acute (2) UTI (urinary tract infection): Status: Acute (3) Anemia: Status: Acute Allergies/Procedures Done in Hospital Allergies doxycycline Allergy (Mild, Verified 09/11/21 19:15) Swelling allopurinol Allergy (Unknown, Verified 09/11/21 19:15) Angioedema Sulfa (Sulfonamide Antibiotics) Allergy (Verified 09/11/21 19:15) Rash tetracycline [Tetracycline] Allergy (Verified 09/11/21 19:15) difficulty breathing, rash metronidazole [From Flagyl] Adverse Reaction (Intermediate, Verified 09/11/21 19:15) GI severe nausea WILDA Inhibitors Adverse Reaction (Verified 08/23/21 23:33) cough cephalexin [From Keflex] Adverse Reaction (Verified 09/11/21 19:15) Nausea/Vom/Diarrhea dicyclomine Adverse Reaction (Verified 08/23/21 23:33) GI upset NSAIDS (Non-Steroidal Anti-Inflamma Adverse Reaction (Verified 09/11/21 19:15) GI bleeding oxycodone [From Percocet] Adverse Reaction (Verified 09/11/21 19:15) Upset Stomach Penicillins Adverse Reaction (Verified 09/11/21 19:15) Rash Procedures: None Type of Care/Length of Stay Estimated LOS: Convalescent Care Less Than 30 days Type of Care Needed: Skilled Rehab Potential: Fair Prognosis: Fair Additional Orders/Day of Discharge Day of Discharge: 09/14/21 Dietary and Speech Recommendations Dietitian Recommendations/Changes: Will change diet to liberal Regular No Added Salt d/t poor po intake - can further restrict diet d/t DM/Cardiac hx once po intake consistently improved. Will order 4 oz glucermanpreet connke 4x/day w/ medpass for increased nutrition if consumed Discharge Plan Admission Admit Date/Time: 09/11/21 20:48 Primary Reason for Your Visit: debility, weakness, acute on chronic anemia Attending Provider: Kimberley Castle Primary Care Provider: Osiel Arzola Discharge Orders/Prescriptions Prescriptions: New cefdinir 300 mg capsule 300 mg PO BID Qty: 14 RF: 0 Continued omeprazole 40 mg capsule,delayed release(DR/EC) 40 mg PO BID RF: 0 calcium carbonate-vitamin D3 1 EACH tablet 1 each PO DAILY RF: 0 gabapentin 600 mg tablet 600 mg PO 4X/DAY RF: 0 cyanocobalamin (vitamin B-12) 500 MCG tablet 500 mcg PO DAILY@0800 RF: 0 buprenorphine 15 mcg/hour Patch Weekly 1 patch TRANSDERMAL SA RF: 0 rosuvastatin 40 mg tablet 40 mg PO QHS RF: 0 spironolactone 25 mg tablet 25 mg PO DAILY RF: 0 methocarbamol 500 mg Tablet 500 mg PO TID 30 Days Qty: 90 RF: 0 metoprolol succinate 25 mg tablet extended release 24 hr 12.5 mg PO DAILY RF: 0 furosemide [Lasix] 40 mg tablet 120 mg PO DAILY RF: 0 hydrocodone-acetaminophen 1 TABLET tablet 1 tab PO BID RF: 0 coQ10 (ubiquinol) 100 mg Capsule 100 mg PO DAILY RF: 0 warfarin 2 mg tablet 2 mg PO DAILY RF: 0 nitroglycerin 0.4 mg tablet, sublingual 0.4 mg SL Q5-15M PRN (Reason: chest pain) Qty: 25 RF: 1 isosorbide mononitrate 60 mg tablet extended release 24 hr 60 mg PO DAILY Qty: 90 RF: 3 ranolazine 500 mg tablet extended release 12 hr 500 mg PO BID Qty: 180 RF: 3 Hold Instructions: Per [facility] discharge Adult 50 Plus Probiotic 4 billion cell capsule 4,000 mmu cells PO DAILY RF: 0 Entresto 49-51 mg tablet 1 tab PO BID Qty: 60 RF: 11 Discontinued nitrofurantoin monohyd/m-cryst [Macrobid] 100 mg Capsule 100 mg PO DAILY@1800 RF: 0 Referrals / Follow Up: Esther Warner MD [STAFF PHYSICIAN] - Within 1 Week Osiel Arzola [Primary Care Provider] - Within 2 Weeks Disposition Disposition (needs filled in before D/C Order can be placed): [facility] Facility
[2021-09-14] MEDS: HYDROcodone Bitartrate/Apap 5/325 Tablet PO (12:26)
[2021-09-14 13:10] LABS: Bedside Glucose 105 mg/dL (70-110)
[2021-09-14 13:40] LABS: Bedside Glucose 114 mg/dL (70-110)
[2021-09-15 09:01] LABS: Blast 14 % (0-0); Lymphocyte 15 % (19-41); Metamyelocyte 10 % (0-1); Myelocyte 25 % (0-0); Neutrophil-Band 2 % (0-5); Neutrophil-Segmented 13 % (47-70); Promyelocyte 5 % (0-0)
[2021-09-15 09:03] LABS: Monocyte 16 % (0-10)
[2021-09-15 09:05] LABS: Absolute Lymphocyte Count 4.97 X10^3/uL (0.83-4.51)
[2021-09-15 09:06] LABS: Anisocytosis 2+; Macrocytosis 1+; Microcytosis 1+; Platelet Morphology LARGE
[2021-09-15 09:19] LABS: White Blood Count 33.1 K/mm3 (4.4-11.0)
[2021-09-15 12:33] LABS: Pathologist Review Reviewed
[2021-09-15 12:34] LABS: Pathologist Review Reviewed
[2021-09-17 09:26] LABS: Pathologist Review Reviewed
== END 2021-09-14 16:35 | disposition skilled nursing facility (03) | DRG 812 ==
LOC: ED 21:08 → MS3 09-12 07:19
PROVIDERS: Admitting Provider Family Medicine; Emergency Provider Student in an Organized Health Care Education/Training Program; Visit Provider Student in an Organized Health Care Education/Training Program
DX: D46.9 Myelodysplastic syndrome, unspecified (principal); N17.9 Acute kidney failure, unspecified; I13.0 Hypertensive heart and chronic kidney disease with heart failure and stage 1 through stage 4 chronic kidney disease, or unspecified chronic kidney disease; I50.22 Chronic systolic (congestive) heart failure; E11.22 Type 2 diabetes mellitus with diabetic chronic kidney disease; D69.6 Thrombocytopenia, unspecified; N18.32 Chronic kidney disease, stage 3b; N30.00 Acute cystitis without hematuria; B96.1 Klebsiella pneumoniae [K. pneumoniae] as the cause of diseases classified elsewhere; D50.0 Iron deficiency anemia secondary to blood loss (chronic); K21.9 Gastro-esophageal reflux disease without esophagitis; I25.5 Ischemic cardiomyopathy; I25.10 Atherosclerotic heart disease of native coronary artery without angina pectoris; E78.5 Hyperlipidemia, unspecified; M48.55XS Collapsed vertebra, not elsewhere classified, thoracolumbar region, sequela of fracture; Z79.01 Long term (current) use of anticoagulants; Z86.718 Personal history of other venous thrombosis and embolism; E66.9 Obesity, unspecified; Z95.1 Presence of aortocoronary bypass graft; Z87.440 Personal history of urinary (tract) infections; Z91.81 History of falling; Z86.711 Personal history of pulmonary embolism; Z88.0 Allergy status to penicillin; Z79.899 Other long term (current) drug therapy; Z95.810 Presence of automatic (implantable) cardiac defibrillator
CPT/HCPCS: 36415; 71045; 80048; 80053; 81001; 82274; 82962; 83880; 84484; 85025; 85027; 85610; 86850; 86900; 86901; 86920; 87077; 87086; 87088; 87186; 87426; 92526; 92610; 93005; 96361; 96374; 96375; 97110; 97162; 97166; 97530; 97535; 99218; 99251; 99285; J7040; J7050; P9016; A4216; G0378; G0463; J1940; J2405

== ENCOUNTER 2021-09-14 16:51 | Inpatient (IN) | payer MEDICARE, SELFPAY ==
[2021-09-14 17:03] VITALS: BP 104/61; PULSE 100; RESP 20; TEMP 36.3; O2SAT 95
--- NOTE | 2021-09-14 17:06 | PCM.HP.STD ---
HPI - General General Date of Admission: 09/14/21 HPI Narrative 09/11/2021 RIP LORENZO, is a 80 Female who presents to [facility] Emergency Department with fall. Generalized weakness, fatigue, slid off toilet. Hemoglobin 6.9, no black stools, on coumadin for DVT. Increased swelling, gained 25 pounds over last few weeks. Hemoglobin 6.6, WBC 37.4, Creatinine 1.98. BNP 1591, Chest X-ray negative, Stool negative for blood. Usually Dr. Warner administers weekly EPO injections, missed EPO injections recently. Transfuse 1 unit PRBC. 09/11/2021 Admit to Hospital. PT/OT for debility. Transfuse 1 unit PRBC for anemia secondary to myelodysplastic syndrome. Normal Saline 500mL IV bolus for acute kidney injury/dehydration. Butrans patch for T12 compression fracture. Hold Lasix for hypotension. 09/12/2021 WBC mid 30's secondary to leukemoid reaction per Hematology/Oncology. Urine culture grew Klebsiella treated with Cefdinir 300mg twice daily x 7 days. Acute kidney injury on chronic kidney disease stage 3b improved with IV hydration. 09/14/2021 Admit to TCU with debility, here for rehabilitation, strengthening, prior to discharge home with /family. [facility] Medical History Abnormal stress test Atherosclerosis of coronary artery bypass graft(s), unspecified, with other forms of angina pectoris Atherosclerotic heart disease of [place] coronary artery without angina pectoris Benign hypertension Diabetes mellitus, type 2 Diverticulitis GERD (gastroesophageal reflux disease) History of DVT (deep vein thrombosis) History of esophageal stricture History of pulmonary embolism Hyperlipidemia Ischemic cardiomyopathy LBBB (left bundle branch block) Obesity Systolic CHF, chronic Thrombocytopenia Thromboembolic disorder Home Medications calcium carbonate-vitamin D3 1 each PO DAILY 03/08/17 [History Last Taken 09/11/21] cyanocobalamin (vitamin B-12) 500 mcg PO DAILY@0800 12/07/17 [History Last Taken 09/11/21] nitroglycerin 0.4 mg sublingual tablet 0.4 mg SL Q5-15M PRN #25 tablet 12/12/19 [Rx Last Taken Unknown] omeprazole 40 mg capsule,delayed release 40 mg PO BID cap 11/26/20 [History Last Taken 09/11/21] gabapentin 600 mg tablet 600 mg PO 4X/DAY tab 12/11/20 [History Last Taken 09/11/21] ranolazine 500 mg tablet,extended release,12 hr 500 mg PO BID #180 tab 12/23/20 [Rx Last Taken 09/11/21] lactobacillus combination no.9 4 billion cell capsule 4,000 mmu cells PO DAILY 01/06/21 [History Last Taken 09/10/21] buprenorphine 1 patch TRANSDERMAL SA 01/21/21 [History Last Taken 09/06/21] rosuvastatin 40 mg PO QHS 05/25/21 [History Last Taken 09/10/21] spironolactone 25 mg PO DAILY 08/18/21 [History Last Taken 09/11/21] metoprolol succinate 12.5 mg PO DAILY 08/23/21 [History Last Taken 09/11/21] coQ10 (ubiquinol) 100 mg PO DAILY 09/11/21 [History Last Taken 09/11/21] furosemide [Lasix] 120 mg PO DAILY 09/11/21 [History Last Taken 09/11/21] hydrocodone-acetaminophen 1 tab PO BID 09/11/21 [History Last Taken 09/11/21] warfarin 2 mg PO DAILY 09/11/21 [History Last Taken 09/10/21] Entresto 1 tab PO BID 09/14/21 [History Last Taken Unknown] cefdinir 300 mg PO BID 09/14/21 [History Last Taken Unknown] isosorbide mononitrate 60 mg PO DAILY 09/14/21 [History Last Taken Unknown] methocarbamol 500 mg PO TID 09/14/21 [History Last Taken Unknown] Allergy/AdvReac Type Severity Reaction Status Date / Time doxycycline Allergy Mild Swelling Verified 09/11/21 19:15 allopurinol Allergy Unknown Angioedema Verified 09/11/21 19:15 Sulfa (Sulfonamide Allergy Rash Verified 09/11/21 19:15 Antibiotics) tetracycline [Tetracycline] Allergy difficulty Verified 09/11/21 19:15 breathing, rash metronidazole [From Flagyl] AdvReac Intermediate GI severe Verified 09/11/21 19:15 nausea WILDA Inhibitors AdvReac cough Verified 08/23/21 23:33 cephalexin [From Keflex] AdvReac Nausea/Vom/ Verified 09/11/21 19:15 Diarrhea dicyclomine AdvReac GI upset Verified 08/23/21 23:33 NSAIDS (Non-Steroidal AdvReac GI bleeding Verified 09/11/21 19:15 Anti-Inflamma oxycodone [From Percocet] AdvReac Upset Verified 09/11/21 19:15 Stomach Penicillins AdvReac Rash Verified 09/11/21 19:15 Family History Mother Myocardial infarction Hypertension Heart disease History of coronary artery bypass graft Brother Hypertension History of coronary artery bypass graft Father Cancer esophageal Surgical History Aortocoronary bypass status (~10/09/02) H/O arthroscopic knee surgery History of partial knee replacement History of total hysterectomy History of tubal ligation Hx of bilateral breast reduction surgery Hx of cholecystectomy Presence of implantable cardioverter-defibrillator (ICD) (10/22/20) Social History (Updated 09/14/21 @ 17:[address] Terrell Green MD) household members: spouse and children Smoking Status: Never smoker alcohol intake: never substance use type: does not use caffeine: Yes Type: carbonated beverages and coffee Number of servings: 3 what type of physical activity do you participate in: other details: cardiac rehab frequency: 3-4 times per week duration: 45-60 minutes/day seatbelt use: always do you feel safe at home: Yes ROS Constitutional Constitutional: Denies chills, fever(s) or weight gain ENT HEENT: Denies headache(s), nasal congestion or nasal discharge Cardiovascular Cardiovascular: Denies chest pain or palpitations Respiratory/Chest Respiratory/Chest: Denies cough, excessive phlegm production or shortness of breath with exertion Gastrointestinal Gastrointestinal: Denies abdominal pain, nausea or vomiting Genitourinary Genitourinary: Denies dysuria Musculoskeletal Musculoskeletal: Denies joint pain or joint swelling Integumentary Integumentary: Denies rash or wounds Neurologic Neurologic: Denies focal weakness, numbness or tingling Psychiatric Psychiatric: Denies anxiety, auditory hallucinations, depression, homicidal ideation or suicidal ideation Physical Exam Const alert and oriented x3 General Appearance: cooperative HEENT normocephalic Eyes PERRL and EOMs intact bilaterally Neck supple, no JVD and no carotid bruits Resp normal respiratory effort, normal air movement and clear to auscultation bilaterally Cardio regular rate and regular rhythm GI normal to inspection, nondistended, normoactive bowel sounds, non-tender and non-distended Extremity normal capillary refill General Extremity: Negative for edema Skin no rashes or lesions noted General Skin Exam: no breakdown Psych affect normal Appearance: appropriate Results Lab / Micro Data Result Diagrams: 09/15/21 05:08 09/15/21 05:08 Assessment & Plan Assessment/Plan (1) Debility: (2) Anemia: QUALIFIERS: Anemia type: iron deficiency Iron deficiency anemia type: chronic blood loss Qualified Code(s): D50.0 - Iron deficiency anemia secondary to blood loss (chronic) (3) MDS (myelodysplastic syndrome): (4) UTI (urinary tract infection): QUALIFIERS: Hematuria presence: without hematuria Urinary tract infection type: acute cystitis Qualified Code(s): N30.00 - Acute cystitis without hematuria (5) Acute kidney injury: (6) Chronic kidney disease, stage 3b: (7) Vitamin B12 deficiency: (8) Coronary artery disease: (9) Gastroesophageal reflux disease: (10) Neuropathic pain: (11) Recurrent urinary tract infection: (12) Chronic systolic congestive heart failure: (13) Hyperlipidemia: (14) Muscle spasm: (15) Pulmonary embolism: (16) Compression fracture of T12 vertebra: PLAN: 80 year old female with below past medical history hospitalized for acute anemia secondary to myelodysplastic syndrome, complicated by Klebsiella urinary tract infection, acute on chronic kidney disease stage 3b, admitted to TCU with debility, here for rehabilitation, strengthening, prior to discharge home with /family. Debility - PT/OT. Pain - [place] 5/325mg twice daily, Butrans patch 15mcg 1 patch td qweek. Bowel - Miralax 17gm daily, Senna/colace 1 tablet twice daily, Dulcolax 10mg daily prn. Adult immunization - Administer prevnar 13, pneumovax 23, fluzone, covid19 vaccine as appropriate. DVT prophylaxis - Not necessary, on warfarin. Klebsiella urinary tract infection - Cefdinir 300mg bid x 7 days. GERD - Pantoprazole 40mg twice daily. Calcium deficiency - Calcium D 1 tablet daily. Neuropathic pain - Gabapentn 600mg 4x/day. Vitamin B12 deficiency - B12 500mcg daily. Hyperlipidemia - Rosuvastatin 40mg qhs. Chronic systolic congestive heart failure - Metoprolol succinate 25mg daily, Entresto 49/51mg bid, Aldactone 25mg daily, Lasix 40mg daily. Muscle spasm - Methocarbamol 500mg tid. Recurrent DVT/PE - Warfarin 2mg daily, monitor INR. Coronary Artery Disease - Metoprolol succinate 25mg daily, Isosorbide [place] 60mg daily, Ranexa 500mg bid, NTG 0.4mg SL Q5-15m prn chest pain.
--- NOTE | 2021-09-14 17:50 | NURSING ---
Addendum entered by Shreya Abdi 09/14/21 18:08: Daughter to bring in Butrans patch later this week for Wednesday administration. Original Note: Contacted JOHANNA Solo (daughter), received verbal consent for DNRCC-A no intubation. Reviewed admission questions and provided visiting hour times.
[2021-09-14 18:33] VITALS: PULSE 64; RESP 18; O2SAT 96
[2021-09-14 18:46] VITALS: BMI 31.3
[2021-09-14] MEDS: Polyethylene Glycol 3350 17 GM PACKET PO (20:03)
[2021-09-14] MEDS: Pantoprazole Sodium 40 MG Tablet PO (20:04)
[2021-09-14] MEDS: Senna/Docusate Sodium 1 Tablet PO (20:05)
[2021-09-14] MEDS: Ranolazine 500 MG Tablet PO (20:05)
[2021-09-14] MEDS: Gabapentin 600 MG Tablet PO (20:05)
[2021-09-14] MEDS: Methocarbamol 500 MG Tablet PO (20:06)
[2021-09-14] MEDS: Atorvastatin Calcium 80 MG Tablet PO (20:12)
[2021-09-14] MEDS: HYDROcodone Bitartrate/Apap 5/325 Tablet PO (20:12)
[2021-09-14] MEDS: Glucerna Shake 120 ML LIQUID PO (20:14)
[2021-09-14] MEDS: SACUBITRIL/VALSARTAN 49-51 MG TABLET 1 EACH PO (20:28)
[2021-09-15 05:29] LABS: Hematocrit 25.3 % (37-47); Hemoglobin 7.6 g/dL (12.0-15.0); Mean Corpuscular Hgb 30.9 pg (27.0-32.0); Mean Corpuscular Volume 102.8 fL (81-99); POSITIVE COUNT YES; POSITIVE DIFFERENTIAL YES; POSITIVE MORPHOLOGY YES; Platelet Count 165 K/mm3 (150-450); RBC Distribution Width CV 23.9 % (11.6-14.6); RBC Distribution Width SD 85.3 fl (35.1-43.9); Red Blood Count 2.46 M/mm3 (4.2-5.4); White Blood Count 41.1 K/mm3 (4.4-11.0)
[2021-09-15 05:33] LABS: Differential Indicated MANUAL DIFF
--- NOTE | 2021-09-15 05:38 | NURSING ---
0535: Henrik from lab calls w/ a critical WBC count of 41.1. Value read back for verification.
[2021-09-15 05:57] LABS: Anion Gap 6 (5-15); BUN 21 mg/dL (7-18); BUN/Creat Ratio 16.4 RATIO (10-20); Calcium,Total 9.1 mg/dL (8.5-10.1); Chloride 104 mmol/L (98-107); Creatinine, Serum 1.28 mg/dL (0.55-1.02); EST Glomerular Filtration Rate 42 mL/min (>60); Est Glom Filt Rate - Afr Amer 51 mL/min (>60); Estimated Creatinine Clearance 30.49 ml/min; Glucose 104 mg/dL (74-106); Potassium 3.8 mmol/L (3.5-5.1); Sodium Level 136 mmol/L (136-145)
[2021-09-15 06:17] LABS: Absolute Neutrophil Count 9.5 X10^3/uL (2.0-7.7); Metamyelocyte 4 % (0-1); Myelocyte 30 % (0-0); Neutrophil-Segmented 23 % (47-70); Total Cells Counted 100 (MANUAL DIFF)
[2021-09-15 06:18] LABS: Blast 1 % (0-0); Lymphocyte 9 % (19-41); Monocyte 22 % (0-10); Platelet Estimate ADEQUATE (ADEQ); Promyelocyte 11 % (0-0); Red Cell Morphology NORM C+C NORMAL (NORM C&C)
[2021-09-15 06:19] LABS: Anisocytosis 3+
[2021-09-15 06:31] LABS: Bedside Glucose 102 mg/dL (70-110)
[2021-09-15] MEDS: Polyethylene Glycol 3350 17 GM PACKET PO (06:37)
[2021-09-15] MEDS: Glucerna Shake 120 ML LIQUID PO ×4 (06:37→21:26)
[2021-09-15] MEDS: SACUBITRIL/VALSARTAN 49-51 MG TABLET 1 EACH PO ×2 (06:38→18:46)
[2021-09-15] MEDS: Isosorbide Mononitrate 60 MG Tablet PO (06:38)
[2021-09-15] MEDS: Cefdinir 300 MG Capsule PO ×2 (06:38→19:03)
[2021-09-15] MEDS: Ranolazine 500 MG Tablet PO ×2 (06:39→19:03)
[2021-09-15] MEDS: Methocarbamol 500 MG Tablet PO ×3 (06:39→21:38)
[2021-09-15] MEDS: Senna/Docusate Sodium 1 Tablet PO ×2 (06:39→19:01)
[2021-09-15] MEDS: Pantoprazole Sodium 40 MG Tablet PO ×2 (06:40→19:02)
[2021-09-15] MEDS: Gabapentin 600 MG Tablet PO ×4 (06:40→21:38)
[2021-09-15] MEDS: Nystatin Powder 15gm Bottle 1 APPLIC TOPICAL ×2 (06:41→21:37)
[2021-09-15] MEDS: Menthol/Lanolin/Calamine/Znox 113 GM Tube 1 APPLIC TOPICAL ×2 (06:41→19:03)
[2021-09-15] MEDS: HYDROcodone Bitartrate/Apap 5/325 Tablet PO ×2 (06:43→19:05)
[2021-09-15] MEDS: Calcium Carb/Vitamin D 1 TABLET Tablet PO (09:55)
[2021-09-15] MEDS: Cyanocobalamin 500 MCG Tablet PO (09:55)
[2021-09-15 10:04] VITALS: BP 93/49; PULSE 96
--- NOTE | 2021-09-15 10:31 | NURSING ---
Dr Cadena notified of consult, he will be in later this week. would like pt to get blood transfusions if HGB <7 & wants CBC done twice a week.
--- NOTE | 2021-09-15 10:34 | NURSING ---
dr campos updated on pt nausea, LBM 09/11. new order for SSE x1
[2021-09-15 10:40] LABS: Bedside Glucose 144 mg/dL (70-110)
[2021-09-15] MEDS: Tuberculin,Purif.prot.deriv. 50 TU/ML Vial 0.1 ML ID (11:36)
--- NOTE | 2021-09-15 11:49 | NURSING ---
SOAP SUDS ENEMA WAS GIVEN. NO RESULTS AT THIS TIME WILL CONTINUE TO MONITOR.
[2021-09-15 12:34] LABS: Pathologist Review Reviewed
[2021-09-15 13:33] VITALS: BP 85/50; PULSE 90
[2021-09-15 13:37] VITALS: BP 85/50; PULSE 90
--- NOTE | 2021-09-15 13:45 | NURSING ---
PT BP DROOPING. OK PER RN TO HOLD LASIX,TOPROL,ALDACTONE. HARD FOR PT TO STAY AWAKE AND CAN BE CONFUSED. PALLIATIVE WAS IN TO SEE PT. FLUIDS BEING OFFERED EACH TIME STAFF GOES IN. RN IS AWARE, WILL BE NOTIFIED.
[2021-09-15] MEDS: Bisacodyl 5 MG Tablet 10 MG PO (13:55)
[2021-09-15] MEDS: 0.9% Saline Lock 10 ML Syringe IV ×2 (13:59→18:56)
--- NOTE | 2021-09-15 14:00 | NURSING ---
STILL NO RESULTS FROM SOAP SUDS ENEMA. PRN DULCOLAX GIVEN. RN AWARE
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
[2021-09-15 14:49] VITALS: BP 102/51; PULSE 95; RESP 16; TEMP 36; O2SAT 100
--- NOTE | 2021-09-15 14:55 | CASEMGMT ---
Social Work Patient not alert to complete initial assessment. and two dtrs present in room. Completed assessment with two dtrs, Michelle and Eugenie. Explained [facility] insurance with NRD 2/3 and continued stay is not guaranteed with each review. Dtrs both concerned with not getting enough time to rehab in TCU to return home. This worker expressed understanding and suggested beginning to discuss alternative DC plan, which SW to assist with options. Currently, pt lives at home with and dtr, Michelle. Michelle does not work and cares for pt 24/. Prior, pt was able to toilet, dress, ambulate, feed self and manage medications independently. Dtr states insurance provides [facility] caregivers [facility] for an aide x1-2/wk and assists with showers. Both dtrs report pt has had a major decline in functioning and if pt doesn't return to PLOF, she cannot return home. Pt was at [facility] (2005) and enjoyed it. If pt would need LTC, that is FOC. Dtr states she was on Medicaid when at [facility]. Dtrs in agreement that would be their alternative plan if pt cannot return home when insurance issues DC date. Provided dtr Medicaid application to complete and return to begin that process. Also provided medical alert resources, per dtr's request. Dtr also inquired about Palliative/Hospice services as their initial response is no. Their interpretation was hospice is for people ready to . Understood their perspective, but educated at length on both programs services and criteria. Explained patients can be on hospice with comfort treatment for years. Both services provide 24/7 patient coordinator front desk care with nursing and assistance in whichever environment the patient resides. Both dtrs appreciative of explanations and in agreement to meet with liaison as very interested in Palliative services at this time. Contacted [facility] to reconsult. SW to continue to follow. Phyllis Rojas, ARON ELECTRICAL CONTINUITY INSPECTOR
[2021-09-15 16:20] LABS: Bedside Glucose 139 mg/dL (70-110)
[2021-09-15] MEDS: Jantoven 2 MG Tablet PO (17:41)
[2021-09-15 18:05] LABS: International Normalized Ratio 1.9; Prothrombin Time (Protime)PT. 20.9 SECONDS (11.7-14.9)
--- NOTE | 2021-09-15 18:46 | NURSING ---
dr campos notified of low BPs, dc'd aldactone, lasix, and toprol. Wants pt to have IVF @ 75cc/hr.
[2021-09-15] MEDS: 0.9% Normal Saline 1,000 ML 75 ML IV (18:55)
[2021-09-15 21:31] LABS: Bedside Glucose 162 mg/dL (70-110)
[2021-09-15] MEDS: Atorvastatin Calcium 80 MG Tablet PO (21:38)
[2021-09-15] MEDS: Bisacodyl 10 MG Suppository RC (21:57)
[2021-09-15 22:00] VITALS: PULSE 89
[2021-09-16] MEDS: Glucerna Shake 120 ML LIQUID PO ×3 (05:48→20:43)
[2021-09-16] MEDS: Polyethylene Glycol 3350 17 GM PACKET PO (05:48)
[2021-09-16] MEDS: Isosorbide Mononitrate 60 MG Tablet PO (05:49)
[2021-09-16] MEDS: SACUBITRIL/VALSARTAN 49-51 MG TABLET 1 EACH PO ×2 (05:49→17:03)
[2021-09-16] MEDS: Ranolazine 500 MG Tablet PO ×2 (05:49→17:04)
[2021-09-16] MEDS: Senna/Docusate Sodium 1 Tablet PO ×2 (05:49→17:04)
[2021-09-16] MEDS: Methocarbamol 500 MG Tablet PO ×3 (05:49→20:43)
[2021-09-16] MEDS: Cefdinir 300 MG Capsule PO ×2 (05:49→17:04)
[2021-09-16] MEDS: Pantoprazole Sodium 40 MG Tablet PO ×2 (05:49→17:04)
[2021-09-16] MEDS: Gabapentin 600 MG Tablet PO ×4 (05:49→20:43)
[2021-09-16] MEDS: Menthol/Lanolin/Calamine/Znox 113 GM Tube 1 APPLIC TOPICAL ×2 (05:51→17:06)
[2021-09-16] MEDS: Nystatin Powder 15gm Bottle 1 APPLIC TOPICAL ×2 (05:51→17:06)
[2021-09-16] MEDS: HYDROcodone Bitartrate/Apap 5/325 Tablet PO ×2 (05:53→17:06)
--- NOTE | 2021-09-16 05:54 | NURSING ---
Butrans patch noted to be placed on pt upper left back.
[2021-09-16 06:40] LABS: Bedside Glucose 99 mg/dL (70-110)
[2021-09-16] MEDS: Calcium Carb/Vitamin D 1 TABLET Tablet PO (08:24)
[2021-09-16] MEDS: Cyanocobalamin 500 MCG Tablet PO (08:25)
[2021-09-16] MEDS: 0.9% Normal Saline 1,000 ML 75 ML IV (08:27)
[2021-09-16] MEDS: Magnesium Citrate 300 ML PO (08:29)
--- NOTE | 2021-09-16 10:00 | RAD_ITS ---
STUDY: X-RAY - ABDOMEN/PELVIS REASON FOR EXAM: Female, 80 years old. Constipation TECHNIQUE: Single AP view of the abdomen / pelvis. COMPARISON: None. FINDINGS: There is an abundance of fecal material throughout the colon. The patient is status post cholecystectomy. Normal soft tissue structures. There are diffuse degenerative changes of the visualized lumbar spine. The patient is status post vertebroplasty of the T12 vertebrae. Loss of height of the T12 vertebra. RAD/Abdomen Single View IMPRESSION: Large amount of fecal material is seen throughout the colon. Electronically Signed: Omid Bansal MD at 14:05 EST ,
[2021-09-16 10:46] LABS: Bedside Glucose 102 mg/dL (70-110)
--- NOTE | 2021-09-16 11:01 | NURSING ---
Addendum entered by Beverley Alvarez 09/16/21 15:58: Lactulose enema successful pt hard large hard bm Addendum entered by Beverley Alvarez 09/16/21 13:11: pt bp 117/45 Dr. Green aware of BP and stated it was ok to give lasix IV at this time. Addendum entered by Beverley Alvarez 09/16/21 12:22: Dr. Green updated and N.O. IV lasix 20mg x 1 dose, lactulose enema, and stop IV fluids. Original Note: Pt given mag citrate this morning, unable to finish it all, pt started vomiting a large amount of harris colored emesis. Pt washed up and linen changed. Assessment done, auditory expiratory wheezes throughout, Left posterior lobes crackles, nonpitting edema in BUE.
[2021-09-16 13:21] VITALS: BP 117/45; PULSE 97; RESP 18; TEMP 36.5; O2SAT 96
--- NOTE | 2021-09-16 13:31 | PHA.CONS1_ITS ---
Progress Note - Pharmacy Subjective: [] TCU Admission Objective: Allergies doxycycline Allergy (Mild, Verified 09/11/21 19:15) Swelling allopurinol Allergy (Unknown, Verified 09/11/21 19:15) Angioedema Sulfa (Sulfonamide Antibiotics) Allergy (Verified 09/11/21 19:15) Rash tetracycline [Tetracycline] Allergy (Verified 09/11/21 19:15) difficulty breathing, rash metronidazole [From Flagyl] Adverse Reaction (Intermediate, Verified 09/11/21 19:15) GI severe nausea WILDA Inhibitors Adverse Reaction (Verified 08/23/21 23:33) cough cephalexin [From Keflex] Adverse Reaction (Verified 09/11/21 19:15) Nausea/Vom/Diarrhea dicyclomine Adverse Reaction (Verified 08/23/21 23:33) GI upset NSAIDS (Non-Steroidal Anti-Inflamma Adverse Reaction (Verified 09/11/21 19:15) GI bleeding oxycodone [From Percocet] Adverse Reaction (Verified 09/11/21 19:15) Upset Stomach Penicillins Adverse Reaction (Verified 09/11/21 19:15) Rash Current Medications Generic Name Dose Route Start Last Admin Trade Name Freq PRN Reason Stop Dose Admin Hydrocodone Bitart/Acetaminophen 1 tablet 09/14/21 18:00 09/16/21 05:53 Hydrocodone Bitartrate/Apap 5/325 Tablet PO 1 tablet BID ILYA Administration Atorvastatin Calcium 80 mg 09/14/21 22:00 09/15/21 21:38 Atorvastatin Calcium 80 Mg Tablet PO 80 mg QHS ILYA Administration Bisacodyl 10 mg 09/14/21 17:27 09/15/21 21:57 Bisacodyl 10 Mg Suppository RC 10 mg DAILY PRN Administration CONSTIPATION Bisacodyl 10 mg 09/14/21 17:35 09/15/21 13:55 Bisacodyl 5 Mg Tablet PO 10 mg DAILY PRN Administration CONSTIPATION Calamine/Phenol 1 applic 09/15/21 06:00 09/16/21 05:51 Menthol/Lanolin/Calamine/Znox 113 Gm Tube TOPICAL 1 applic BID ILYA Administration Protocol Calcium/Vitamin D 1 tablet 09/15/21 08:00 09/16/21 08:24 Calcium Carb/Vitamin D 1 Tablet Tablet PO 1 tablet 0800 ILYA Administration Cefdinir 300 mg 09/15/21 06:00 09/16/21 05:49 Cefdinir 300 Mg Capsule PO 09/29/21 06:01 300 mg BID [facility] Administration Cyanocobalamin 500 mcg 09/15/21 08:00 09/16/21 08:25 Cyanocobalamin 500 Mcg Tablet PO 500 mcg 0800 ILYA Administration Gabapentin 600 mg 09/14/21 22:00 09/16/21 13:00 Gabapentin 600 Mg Tablet PO 600 mg 4X/DAY ILYA Administration Isosorbide Mononitrate 60 mg 09/15/21 06:00 09/16/21 05:49 Isosorbide Mononitrate 60 Mg Tablet PO 60 mg DAILY ILYA Administration Lactobacillus Acidophilus 1 tablet 09/15/21 08:00 09/16/21 08:24 Lactobacillus Acidophilus PO 1 tablet 0800 [facility] Administration Lactulose 200 gm 09/16/21 13:30 Lactulose 20 Gm/30 Ml Udc RC 09/16/21 13:31 X1 ONE Methocarbamol 500 mg 09/14/21 22:00 09/16/21 13:00 Methocarbamol 500 Mg Tablet PO 500 mg TID [facility] Administration Nitroglycerin 0.4 mg 09/14/21 18:06 Nitroglycerin (Inpatient Use) 0.4 Mg Tab.Subl SL Q5M PRN CARDIAC/CHEST PAIN Non-Formulary Medication 1 patch 09/20/21 17:15 Buprenorphine TOPICAL SA [facility] Nutritional Formula (Lactose Free) 120 ml 09/14/21 22:00 09/16/21 12:20 Glucerna Shake 120 Ml Liquid PO Not Given 4X/DAY [facility] Nystatin 1 applic 09/15/21 06:00 09/16/21 05:51 Nystatin Powder 15gm Bottle TOPICAL 1 applic BID [facility] Administration Protocol Pantoprazole Sodium 40 mg 09/14/21 18:00 09/16/21 05:49 Pantoprazole Sodium 40 Mg Tablet PO 40 mg BID [facility] Administration Polyethylene Glycol 17 gm 09/14/21 17:45 09/16/21 05:48 Polyethylene Glycol 3350 17 Gm Packet PO 17 gm DAILY [facility] Administration Ranolazine 500 mg 09/14/21 18:00 09/16/21 05:49 Ranolazine 500 Mg Tablet PO 500 mg BID [facility] Administration Sacubitril/Valsartan 1 each 09/14/21 18:00 09/16/21 05:49 Sacubitril/Valsartan 49-51 Mg Tablet PO 1 each BID ILYA Administration Senna/Docusate Sodium 1 tablet 09/14/21 18:00 09/16/21 05:49 Senna/Docusate Sodium 1 Tablet PO 1 tablet BID ILYA Administration Sodium Chloride 10 - 40 ml 09/14/21 17:33 09/15/21 18:56 0.9% Saline Lock 10 Ml Syringe IV 10 ml UD PRN Administration SALINE FLUSH Tuberculin PPD 0.1 ml 09/22/21 10:00 Tuberculin,Purif.Prot.Deriv. 50 Tu/Ml Vial ID 09/22/21 10:01 X1 ONE Warfarin Sodium 2 mg 09/15/21 17:00 09/15/21 17:41 Jantoven 2 Mg Tablet PO 2 mg DAILY@1700 ILYA Administration Problem List (Last Reviewed 09/15/21 @ 14:08 by Maria Alejandra Sal TUNNEL ELASTIC OPERATOR CHAINSTITCH-C) Compression fracture of T12 vertebra (Acute) Pulmonary embolism (Acute) Muscle spasm (Acute) Hyperlipidemia (Acute) Chronic systolic congestive heart failure (Chronic) Recurrent urinary tract infection (Acute) Neuropathic pain (Acute) Gastroesophageal reflux disease (Acute) Coronary artery disease (Acute) Vitamin B12 deficiency (Acute) Chronic kidney disease, stage 3b (Acute) Acute kidney injury (Acute) Debility (Acute) MDS (myelodysplastic syndrome) (Acute) UTI (urinary tract infection) (Acute) Anemia (Acute) Inability to walk (Acute) Vital Signs Temp Pulse Resp BP Pulse Ox 97.7 F L 97 18 117/45 L 96 09/16/21 13:21 09/16/21 13:21 09/16/21 13:21 09/16/21 13:21 09/16/21 13:21 Oxygen Flow Rate (L/min) 3 Oxygen Delivery Method Nasal Cannula Weight: 85.3 kg Body Mass Index (BMI) 31.3 Sodium 136 mmol/L (136-145) 09/15/21 05:08 Potassium 3.8 mmol/L (3.5-5.1) 09/15/21 05:08 Chloride 104 mmol/L (98-107) 09/15/21 05:08 Carbon Dioxide 26.0 mmol/L (21.0-32.0) 09/15/21 05:08 Anion Gap 6 (5-15) 09/15/21 05:08 BUN 21 mg/dL (7-18) H 09/15/21 05:08 Creatinine 1.28 mg/dL (0.55-1.02) H 09/15/21 05:08 Est GFR (MDRD) Af Amer 51 mL/min (>60) L 09/15/21 05:08 Est GFR (MDRD) Non-Af 42 mL/min (>60) L 09/15/21 05:08 BUN/Creatinine Ratio 16.4 RATIO (10-20) 09/15/21 05:08 Glucose 104 mg/dL (74-106) 09/15/21 05:08 Assessment/Plan: 1) Pain: Hydrocodone/Acetaminophen 1 tablet po bid, Butrans 15mcg/hr patch 1 weekly (on Wednesday). Please continue to monitor for signs/symptoms of increased pain. Please continue to rotate site of Butrans Patch. 2) Hyperlipidemia: Atorvastatin 80mg po qhs. Pts lipid panel and LFTs are within normal limits. Please continue to monitor. 3) UTI: Cefdinir 300mg po bid stopping 09/29/21. Please continue to monitor for signs of worsening UTI. 4) GERD: Pantoprazole 40mg po bid. Please continue to monitor for signs/symptoms of GERD 5) Recurrent DTV/PE: Warfarin 2mg po daily at 1700. Pts INR from 09/15/21 was 1.9. Please continue to monitor 6) Neuropathic Pain: Gabapentin 600mg po 4 times a day. Medication is on the [facility] list of medications. Pt has hospice consult and overall condition is worsening. Risk vs Benefit not appropriate at this time 7) CAD: Isosorbide Mononitrate 60mg po daily, Ranexa 500mg po bid, NTG 0.4mg SL q5m prn chest pain. PRN note: pt has not used any doses of NTG to date. Please continue to monitor for signs/symptoms of chest pain. 8) Systolic CHF: Entresto 49/51mg po bid. Metoprolol Succinate 25mg po daily, Aldactone 25mg daily, and Furosemide 40mg po daily were recently dc'd due to low bp. Pt's bp has since been normal. Please continue to monitor. Pts BUN is 21, SrCr is 1.28, and K+ is 3.8. Please continue to monitor labs. 9) Muscle Spasms: Methocarbamol 500mg po tid. Please continue to monitor pt for excessive sedation. Due to pts overall condition, risk vs benefit analysis not appropriate at this time. Psychotropic Medications: Unnecessary Medications: Bowel Regimen: Bisacodyl 10mg suppository daily prn for constipation, Bisacodyl 10mg po daily prn for constipation, Miralax 17gm po daily, Senna /Docusate 1 tablet po bid. Please continue to monitor prn usage and for signs/symptoms of constipation. Date of Note:: 09/16/21
[2021-09-16] MEDS: Furosemide 20 MG/2 ML VIAL IV (13:32)
[2021-09-16] MEDS: 0.9% Saline Lock 10 ML Syringe IV (13:33)
[2021-09-16] MEDS: Lactulose 20 GM/30 ML UDC 200 GM RC (13:38)
--- NOTE | 2021-09-16 15:53 | NURSING ---
Resident and daughter, Michlele, notified of staff member testing positive for COVID.
--- NOTE | 2021-09-16 15:58 | NURSING ---
Dr. Warner in today and saw pt, he called Michelle SPENCER and discussed Hospice, Michelle stated she would talk with the family and let us know. Phyllis LIU aware and family has care plan meeting tomorrow.
[2021-09-16 16:22] LABS: Bedside Glucose 114 mg/dL (70-110)
--- NOTE | 2021-09-16 16:40 | CASEMGMT ---
Social Work Met with Eugenie doshi. She provided completed Medicaid application. Faxed to [facility]. Dtr stated pt is doing 100% better than yesterday and would ideally like to see pt improve in TCU then DC home or [facility] on hospice. However, she made it clear she will defer all decision making to Michelle doshi. The two sisters are to speak this evening. Care plan meeting to be held tomorrow and will see if any decisions are made. SW to continue to follow. ARON JinW
[2021-09-16] MEDS: Jantoven 2 MG Tablet PO (17:03)
--- NOTE | 2021-09-16 17:40 | PCM.CONS.GEN ---
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 -I discussed with patient and family about restarting her decitabine treatment as an outpatient. Because of her comorbidities with congestive heart failure, renal failure, chronic DVT and urinary tract infection, her prognosis is poor whether we could resume with her treatment at this time for MDS. -I recommend family conference tomorrow with hospice and palliative care. Possible transition to home hospice or halfway. -No further treatment or follow-up plan at this time with my office. -Further medical management defer to her primary care physician and hospice and palliative care. HPI Consult Data Date of Consult: 09/16/21 HPI Narrative Reason for Consultation: Leukocytosis and chronic anemia HPI Narrative: RIP LORENZO, is a 80 F who presents with anemia, congestive heart failure and UTI and was recently transferred to [facility]. She has a past medical history of hypertension, diabetes mellitus, congestive heart failure, ischemic cardiomyopathy, severe aortic stenosis, DVT and pulmonary embolism on anticoagulation therapy, and she was diagnosed with myelodysplastic syndrome last year with an elevated WBC with myeloblasts and severe anemia. Bone marrow biopsy on 11/19/2019 show a markedly hypercellular marrow with mild dysplastic changes and increased myeloblasts 5%. There was element of myelofibrosis, BCR able and JAK2 were negative. 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 Treatment history: She started decitabine 0.2mg/Kg subcu weekly injection along with darbepoetin 300 mcg subcu every 14 days with occasional blood transfusion for severe anemia last summer. Interim history: She had her last Dacogen injection on August 07, 2020. Over the last month she had multiple hospitalization for GI bleeding as well as colitis. She was recently treated for UTI and congestive heart failure. She was readmitted to the hospital last week because of shortness of breath and severe anemia and she was transfused last week. Her WBC has been elevated since her last to admission. There is a predominant left shift with 2% blasts. She does not appear to be septic today, but she is in congestive heart failure with dyspnea and weakness. She also complained of nausea from constipation. Her most recent CBC on September 15, WBC 41,000, hemoglobin 7.6, hematocrit 25.3, blood count 165,000, 1% myeloblasts, with increased metamyelocytes and promyelocytes. I have discussed with patient's daughter BIENVENIDO regarding her condition. Recent deterioration in her health secondary to infection, worsening heart failure and renal failure. Although anemia may contribute to her condition, chronic leukocytosis has not changed since her original diagnosis last year. There is no evidence of acute leukemia or transformation without thrombocytopenia or increased myeloblasts. [facility] Medical History Abnormal stress test Atherosclerosis of coronary artery bypass graft(s), unspecified, with other forms of angina pectoris Atherosclerotic heart disease of [place] coronary artery without angina pectoris Benign hypertension Diabetes mellitus, type 2 Diverticulitis GERD (gastroesophageal reflux disease) History of DVT (deep vein thrombosis) History of esophageal stricture History of pulmonary embolism Hyperlipidemia Ischemic cardiomyopathy LBBB (left bundle branch block) Obesity Systolic CHF, chronic Thrombocytopenia 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 Home Medications calcium carbonate-vitamin D3 1 each PO DAILY 03/08/17 [History Last Taken 09/11/21] cyanocobalamin (vitamin B-12) 500 mcg PO DAILY@0800 12/07/17 [History Last Taken 09/11/21] nitroglycerin 0.4 mg sublingual tablet 0.4 mg SL Q5-15M PRN #25 tablet 12/12/19 [Rx Last Taken Unknown] omeprazole 40 mg capsule,delayed release 40 mg PO BID cap 11/26/20 [History Last Taken 09/11/21] gabapentin 600 mg tablet 600 mg PO 4X/DAY tab 12/11/20 [History Last Taken 09/11/21] ranolazine 500 mg tablet,extended release,12 hr 500 mg PO BID #180 tab 12/23/20 [Rx Last Taken 09/11/21] lactobacillus combination no.9 4 billion cell capsule 4,000 mmu cells PO DAILY 01/06/21 [History Last Taken 09/10/21] buprenorphine 1 patch TRANSDERMAL SA 01/21/21 [History Last Taken 09/06/21] rosuvastatin 40 mg PO QHS 05/25/21 [History Last Taken 09/10/21] spironolactone 25 mg PO DAILY 08/18/21 [History Last Taken 09/11/21] metoprolol succinate 12.5 mg PO DAILY 08/23/21 [History Last Taken 09/11/21] coQ10 (ubiquinol) 100 mg PO DAILY 09/11/21 [History Last Taken 09/11/21] furosemide [Lasix] 120 mg PO DAILY 09/11/21 [History Last Taken 09/11/21] hydrocodone-acetaminophen 1 tab PO BID 09/11/21 [History Last Taken 09/11/21] warfarin 2 mg PO DAILY 09/11/21 [History Last Taken 09/10/21] Entresto 1 tab PO BID 09/14/21 [History Last Taken Unknown] cefdinir 300 mg PO BID 09/14/21 [History Last Taken Unknown] isosorbide mononitrate 60 mg PO DAILY 09/14/21 [History Last Taken Unknown] methocarbamol 500 mg PO TID 09/14/21 [History Last Taken Unknown] Allergy/AdvReac Type Severity Reaction Status Date / Time doxycycline Allergy Mild Swelling Verified 09/11/21 19:15 allopurinol Allergy Unknown Angioedema Verified 09/11/21 19:15 Sulfa (Sulfonamide Allergy Rash Verified 09/11/21 19:15 Antibiotics) tetracycline [Tetracycline] Allergy difficulty Verified 09/11/21 19:15 breathing, rash metronidazole [From Flagyl] AdvReac Intermediate GI severe Verified 09/11/21 19:15 nausea WILDA Inhibitors AdvReac cough Verified 08/23/21 23:33 cephalexin [From Keflex] AdvReac Nausea/Vom/ Verified 09/11/21 19:15 Diarrhea dicyclomine AdvReac GI upset Verified 08/23/21 23:33 NSAIDS (Non-Steroidal AdvReac GI bleeding Verified 09/11/21 19:15 Anti-Inflamma oxycodone [From Percocet] AdvReac Upset Verified 09/11/21 19:15 Stomach Penicillins AdvReac Rash Verified 09/11/21 19:15 Family History Mother Myocardial infarction Hypertension Heart disease History of coronary artery bypass graft Brother Hypertension History of coronary artery bypass graft Father Cancer esophageal Surgical History Aortocoronary bypass status (~10/09/02) H/O arthroscopic knee surgery History of partial knee replacement History of total hysterectomy History of tubal ligation Hx of bilateral breast reduction surgery Hx of cholecystectomy Presence of implantable cardioverter-defibrillator (ICD) (10/22/20) Social History household members: spouse and children Smoking Status: Never smoker alcohol intake: never substance use type: does not use caffeine: Yes Type: carbonated beverages and coffee Number of servings: 3 what type of physical activity do you participate in: other details: cardiac rehab frequency: 3-4 times per week duration: 45-60 minutes/day seatbelt use: always do you feel safe at home: Yes Physical Exam Const Constitutional Narrative: Chronically ill; responds to questions but slightly confused General Appearance: uncooperative, lethargic, ill appearing and frail Orientation / Consciousness: confused Nutritional Appearance: obese Eyes PERRL and no scleral icterus Neck no lymphadenopathy, supple and no carotid bruits Lymph Lymphatic: no lymphadenopathy noted Chest inspection of chest normal Resp normal air movement and no retractions Auscultation: rales Cardio regular rate Cardio Narrative: Loud 3/6 holosystolic murmur left sternal border consistent with aortic stenosis Rhythm: regular rhythm GI soft to palpation, non-tender and no masses GI Narrative: No hepatosplenomegaly Extremity normal to inspection Extremity Narrative: +1 edema with anasarca General Extremity: edema Skin no rashes or lesions noted and no petechiae Neuro Sensorium / Orientation: somnolent Lab / Micro Data Result Diagrams: 09/15/21 05:08 09/15/21 05:08 Labs: Laboratory Results - last 24 hr 09/15/21 17:25: PT 20.9 H, INR 1.9 09/15/21 21:20: POC Glucose 162 H 09/16/21 06:17: POC Glucose 99 09/16/21 10:38: POC Glucose 102 09/16/21 16:11: POC Glucose 114 H Radiology Impression KUB X-Ray 09/16/21 10:00 IMPRESSION: Large amount of fecal material is seen throughout the colon. Electronically Signed: Omid Bansal MD at 14:05 EST ,
[2021-09-16] MEDS: Atorvastatin Calcium 80 MG Tablet PO (20:43)
[2021-09-16 21:46] LABS: Bedside Glucose 104 mg/dL (70-110)
[2021-09-17] MEDS: Ranolazine 500 MG Tablet PO ×2 (06:22→18:28)
[2021-09-17] MEDS: Senna/Docusate Sodium 1 Tablet PO ×2 (06:22→18:27)
[2021-09-17] MEDS: Cefdinir 300 MG Capsule PO ×2 (06:23→18:27)
[2021-09-17] MEDS: Gabapentin 600 MG Tablet PO ×4 (06:23→21:02)
[2021-09-17] MEDS: Pantoprazole Sodium 40 MG Tablet PO ×2 (06:23→18:27)
[2021-09-17] MEDS: Glucerna Shake 120 ML LIQUID PO ×4 (06:24→21:02)
[2021-09-17] MEDS: HYDROcodone Bitartrate/Apap 5/325 Tablet PO ×2 (06:25→18:31)
[2021-09-17] MEDS: Menthol/Lanolin/Calamine/Znox 113 GM Tube 1 APPLIC TOPICAL ×2 (06:25→18:26)
[2021-09-17] MEDS: Polyethylene Glycol 3350 17 GM PACKET PO (06:25)
[2021-09-17] MEDS: Methocarbamol 500 MG Tablet PO ×3 (06:26→21:02)
[2021-09-17] MEDS: SACUBITRIL/VALSARTAN 49-51 MG TABLET 1 EACH PO ×2 (06:26→18:27)
[2021-09-17] MEDS: Isosorbide Mononitrate 60 MG Tablet PO (06:26)
[2021-09-17 06:30] VITALS: BP 120/61; PULSE 100
[2021-09-17] MEDS: Nystatin Powder 15gm Bottle 1 APPLIC TOPICAL ×2 (06:30→18:27)
--- NOTE | 2021-09-17 06:36 | NURSING ---
Butrans patch noted on patient's upper left back.
[2021-09-17 06:40] LABS: Bedside Glucose 82 mg/dL (70-110)
[2021-09-17 07:10] VITALS: O2SAT 96
--- NOTE | 2021-09-17 08:27 | NURSING ---
Centrifugal Spinner Note: 2nd attempt this date to complete activity assessment. Res unable to remain awake/ alert to answer questions other than a few yes/no. Res does enjoy country music. Will continue further assessment with family at POC meeting.
[2021-09-17] MEDS: Cyanocobalamin 500 MCG Tablet PO (08:55)
[2021-09-17] MEDS: Calcium Carb/Vitamin D 1 TABLET Tablet PO (08:55)
--- NOTE | 2021-09-17 10:19 | CASEMGMT ---
Addendum entered by Phyllis Rojas 09/17/21 16:16: [facility] can accept when/if ready since meeting is not until 09/19. Provided them with MCDP# and CM. Addendum entered by Phyllis Rojas 09/17/21 15:13: Received update from [facility] they have a meeting scheduled at their office with both of the dtr's on Tuesday 09/19 at 3:30 pm because of the snow storm. SW to continue to follow. Addendum entered by Phyllis Rojas 09/17/21 12:18: Contacted dtr to update on communications to hospice and Dr. Green. Did receive Medicaid pending #[id number] from rifle case repairer Sam Villeda. She is mailing out paperwork and also agreed to make referral to [employer], per this worker request, in case pt decides to go home vs SNF. Offered to contact [facility] to see about bed availability. Dtr agreeable. Spoke with Almaz at [facility] and unsure about beds, but will review the referral and keep this worker updated. Referral sent. SW to continue to follow. Original Note: Social Work IDT met with patient, , dtr and other dtr via conference call for care plan meeting. Discussed patient's progress in PT/OT and nursing. Explained [facility] insurance with NRD 2/3 and continued stay is not guaranteed with each stay. Pt was alert, awake sitting up in chair. Spoke to pt directly and asked her wishes: continuing with therapy, getting treatment and getting stronger, or going home to rest, be comfortable, not continue therapy and not coming back to the hospital to get treatment if something happens. Pt expressed consistently she would like to go home and be comfortable. Then directed the question of a DC plan to the dtrs. Both dtrs refuted pt's wishes staying she was confused and doesn't know what she is saying. Explained although pt may not be at her baseline for cognition, she can still know how she feels, her wishes and express those feelings accurately. Dtrs not satisfied with conversation from Dr. Warner stating he has only seen pt 4 times and doesn't know anything about her CHF. Dtr was agreeable to speak with Dr. Green to get further assessment and opinion on hospice and pt prognosis. Offered to set up meeting with dtr and [facility] to discuss services and have information how they can help pt in the home to see where the gaps are to coordinate additional assistance in the home. Both dtrs concerned about the amount of care pt currently requires as they will need help to assist pt in the home to DC home. Provided dtr list of nonskilled HHC agencies. Dtr agreeable and appreciative for this worker's assistance. Left communication for Dr. Green and referral made to [facility]. Email sent to [facility] to follow up on Medicaid application for possible community or LTC assistance. SW to continue to follow. ARON Jin DIRECTOR INTERNAL COMMUNICATIONS
[2021-09-17 11:00] VITALS: BP 103/51; PULSE 96; RESP 18; TEMP 36.6; O2SAT 97
--- NOTE | 2021-09-17 14:05 | NURSING ---
pt vomited moderate amount of undigested food, pt cleansed and mouth care provided. Says she feels ok right now.
[2021-09-17] MEDS: Jantoven 2 MG Tablet PO (18:28)
[2021-09-17] MEDS: 0.9% Saline Lock 10 ML Syringe IV (18:35)
[2021-09-17 20:12] VITALS: PULSE 96; RESP 18
[2021-09-17] MEDS: Atorvastatin Calcium 80 MG Tablet PO (21:02)
--- NOTE | 2021-09-18 04:24 | NURSING ---
While doing assessment on patient. Golf ball size lump found in patient's left breast. Message left for Dr. Green.
[2021-09-18 05:49] LABS: Hematocrit 24.8 % (37-47); Hemoglobin 7.3 g/dL (12.0-15.0); Mean Corp Hgb Conc 29.4 g/dL (32-36); Mean Corpuscular Hgb 30.8 pg (27.0-32.0); Mean Corpuscular Volume 104.6 fL (81-99); POSITIVE COUNT YES; POSITIVE DIFFERENTIAL YES; POSITIVE MORPHOLOGY YES; Platelet Count 140 K/mm3 (150-450); RBC Distribution Width CV 23.4 % (11.6-14.6); RBC Distribution Width SD 86.7 fl (35.1-43.9); Red Blood Count 2.37 M/mm3 (4.2-5.4)
[2021-09-18 05:55] LABS: International Normalized Ratio 1.6; Prothrombin Time (Protime)PT. 18.3 SECONDS (11.7-14.9)
[2021-09-18 06:05] LABS: White Blood Count 47.6 K/mm3 (4.4-11.0)
[2021-09-18 06:06] LABS: Differential Indicated MANUAL DIFF
--- NOTE | 2021-09-18 06:08 | NURSING ---
Received call from lab regarding critical WBC result 47.6. Last WBC result on 09/15/21 was 41.1, written communication left for regarding new result.
[2021-09-18 06:28] LABS: Metamyelocyte 5 % (0-1); Myelocyte 24 % (0-0); Neutrophil-Band 1 % (0-5); Neutrophil-Segmented 22 % (47-70); Promyelocyte 5 % (0-0)
[2021-09-18 06:29] LABS: Blast 3 % (0-0); Lymphocyte 11 % (19-41)
[2021-09-18 06:30] LABS: Monocyte 29 % (0-10); Platelet Estimate ADEQUATE (ADEQ); Red Cell Morphology N CYTIC NORMAL (NORM C&C)
[2021-09-18 06:31] LABS: Hypochromasia 1+; Neutrophil # 10.96 X10^3/uL (2.7-7.7)
[2021-09-18 06:32] LABS: Absolute Lymphocyte Count 5.24 X10^3/uL (0.83-4.51); Lymphocyte # 5.24 X10^3/ul (0.83-4.51)
[2021-09-18] MEDS: Methocarbamol 500 MG Tablet PO ×3 (06:48→20:42)
[2021-09-18] MEDS: SACUBITRIL/VALSARTAN 49-51 MG TABLET 1 EACH PO ×2 (06:48→17:35)
[2021-09-18] MEDS: Gabapentin 600 MG Tablet PO ×4 (06:48→20:41)
[2021-09-18] MEDS: Pantoprazole Sodium 40 MG Tablet PO ×2 (06:48→17:35)
[2021-09-18] MEDS: Polyethylene Glycol 3350 17 GM PACKET PO (06:48)
[2021-09-18] MEDS: Ranolazine 500 MG Tablet PO ×2 (06:48→17:34)
[2021-09-18] MEDS: Cefdinir 300 MG Capsule PO ×2 (06:48→17:35)
[2021-09-18] MEDS: HYDROcodone Bitartrate/Apap 5/325 Tablet PO ×2 (06:48→17:59)
[2021-09-18] MEDS: Nystatin Powder 15gm Bottle 1 APPLIC TOPICAL ×2 (06:49→17:35)
[2021-09-18] MEDS: Isosorbide Mononitrate 60 MG Tablet PO (06:49)
[2021-09-18] MEDS: Senna/Docusate Sodium 1 Tablet PO ×2 (06:49→17:37)
[2021-09-18] MEDS: Zinc Oxide 30gm Tube 1 APPLIC TOPICAL ×2 (06:50→17:36)
[2021-09-18 07:03] VITALS: BP 124/59; PULSE 108
--- NOTE | 2021-09-18 07:04 | NURSING ---
Patient vomited moderate amount of darker colored fluid. Patient changed and cleaned up by this Nurse. Will leave note for Dr. Green.
--- NOTE | 2021-09-18 07:26 | NURSING ---
Butrans patch noted on patient's upper left back.
[2021-09-18] MEDS: Calcium Carb/Vitamin D 1 TABLET Tablet PO (08:20)
[2021-09-18] MEDS: Cyanocobalamin 500 MCG Tablet PO (08:20)
[2021-09-18 10:13] VITALS: O2SAT 97
[2021-09-18] MEDS: Glucerna Shake 120 ML LIQUID PO ×3 (11:23→20:40)
--- NOTE | 2021-09-18 13:41 | NURSING ---
Resident and daughter, Michelle, notified of a resident testing positive for COVID.
[2021-09-18 13:44] VITALS: BP 100/57; PULSE 97; RESP 10; TEMP 36.6; O2SAT 100
[2021-09-18 14:02] LABS: Pathologist Review Reviewed
[2021-09-18] MEDS: Jantoven 2 MG Tablet PO (17:38)
[2021-09-18] MEDS: Atorvastatin Calcium 80 MG Tablet PO (20:41)
[2021-09-19] MEDS: SACUBITRIL/VALSARTAN 49-51 MG TABLET 1 EACH PO ×2 (05:35→18:03)
[2021-09-19] MEDS: Senna/Docusate Sodium 1 Tablet PO (05:35)
[2021-09-19] MEDS: Gabapentin 600 MG Tablet PO ×4 (05:35→23:08)
[2021-09-19] MEDS: Isosorbide Mononitrate 60 MG Tablet PO (05:35)
[2021-09-19] MEDS: Cefdinir 300 MG Capsule PO ×2 (05:35→18:04)
[2021-09-19] MEDS: Pantoprazole Sodium 40 MG Tablet PO ×2 (05:35→18:04)
[2021-09-19] MEDS: Methocarbamol 500 MG Tablet PO ×3 (05:35→23:08)
[2021-09-19] MEDS: Polyethylene Glycol 3350 17 GM PACKET PO (05:35)
[2021-09-19] MEDS: Ranolazine 500 MG Tablet PO ×2 (05:35→18:02)
[2021-09-19] MEDS: Zinc Oxide 30gm Tube 1 APPLIC TOPICAL ×2 (05:36→18:10)
[2021-09-19] MEDS: Glucerna Shake 120 ML LIQUID PO ×2 (05:36→11:20)
[2021-09-19] MEDS: Nystatin Powder 15gm Bottle 1 APPLIC TOPICAL ×2 (05:36→18:14)
[2021-09-19] MEDS: HYDROcodone Bitartrate/Apap 5/325 Tablet PO (05:38)
[2021-09-19] MEDS: Ondansetron ODT 4 MG Tablet PO (05:49)
[2021-09-19 07:30] VITALS: O2SAT 97
[2021-09-19] MEDS: Cyanocobalamin 500 MCG Tablet PO (08:05)
[2021-09-19] MEDS: Calcium Carb/Vitamin D 1 TABLET Tablet PO (08:05)
--- NOTE | 2021-09-19 12:12 | MDS.RN ---
BIMS and PHQ-9 completed by social science manager on this date.
--- NOTE | 2021-09-19 14:00 | NURSING ---
[facility] CALLED AND STATED IF PT GOES HOSPICE,THEY NEED A ORDER TO TURN THE D FIB OFF. BUT LEAVE THE PACEMAKER AND TO PLEASE CALL THEM TO LET THEM KNOW. RN AWARE
[2021-09-19 14:21] VITALS: BP 114/48; PULSE 74; RESP 18; TEMP 36.8; O2SAT 98
--- NOTE | 2021-09-19 17:02 | NURSING ---
Received call from Tye at [facility] noting that Doctors have reviewed pt chart and pt is not a candidate for in pt facility. She notes to proceed with plan to send to [facility].
[2021-09-19] MEDS: Jantoven 2 MG Tablet PO (18:02)
[2021-09-19 20:00] VITALS: RESP 16
[2021-09-19] MEDS: Atorvastatin Calcium 80 MG Tablet PO (23:08)
[2021-09-20] MEDS: Cefdinir 300 MG Capsule PO ×2 (07:34→17:48)
[2021-09-20] MEDS: Methocarbamol 500 MG Tablet PO ×3 (07:34→21:11)
[2021-09-20] MEDS: Gabapentin 600 MG Tablet PO ×4 (07:34→21:11)
[2021-09-20] MEDS: Pantoprazole Sodium 40 MG Tablet PO ×2 (07:34→17:48)
[2021-09-20] MEDS: Isosorbide Mononitrate 60 MG Tablet PO (07:34)
[2021-09-20] MEDS: Senna/Docusate Sodium 1 Tablet PO ×2 (07:34→17:48)
[2021-09-20] MEDS: SACUBITRIL/VALSARTAN 49-51 MG TABLET 1 EACH PO ×2 (07:34→17:48)
[2021-09-20] MEDS: Ranolazine 500 MG Tablet PO ×2 (07:34→17:48)
[2021-09-20] MEDS: Polyethylene Glycol 3350 17 GM PACKET PO (07:35)
[2021-09-20] MEDS: Nystatin Powder 15gm Bottle 1 APPLIC TOPICAL ×2 (07:35→17:48)
[2021-09-20] MEDS: Calcium Carb/Vitamin D 1 TABLET Tablet PO (07:45)
[2021-09-20] MEDS: Cyanocobalamin 500 MCG Tablet PO (07:46)
[2021-09-20] MEDS: HYDROcodone Bitartrate/Apap 5/325 Tablet PO ×2 (07:47→17:55)
[2021-09-20] MEDS: BUPRENORPHINE 15 MCG/HR PATCH 1 EACH TD (07:49)
[2021-09-20] MEDS: Zinc Oxide 30gm Tube 1 APPLIC TOPICAL ×2 (07:49→17:48)
[2021-09-20 10:25] VITALS: PULSE 91; RESP 18; O2SAT 95
[2021-09-20 10:30] VITALS: O2SAT 95
--- NOTE | 2021-09-20 10:53 | NURSING ---
PT CLEANED AND CHANGED,CREAM TO BOTTOM,NYSTATIN APPLIED TO RED AREAS. MOUTH CARE AND MOISTURIZER TO LIPS. PT REPOSITIONED TO LEFT SIDE AND PILLOWS UNDER ARMS AND HEELS ELEVATED. WATER OFFERED TO PT.
[2021-09-20] MEDS: Glucerna Shake 120 ML LIQUID PO (11:47)
--- NOTE | 2021-09-20 14:06 | NURSING ---
PT HAS BEEN HAVING MORE TROUBLE SWALLOWING FOOD AND MEDS. MUST BE QUID EACH TIME TO SWALLOW AND MEDS NEED TO BE CRUSHED AND GIVEN IN APPLE SAUCE.BEEN GIVING WATER BY TEASPOON ALSO. PT ALSO HAS WHAT LOOKS LIKE SORES ON TIP OF TONGUE. ASKED PT IF IT WAS SORE AND PT STATED YES. REPOSITIONED PT TO BACK,ARMS AND HEELS ELEVATED ON PILLOWS. MOUTH CARE GIVEN AND MOISTURE TO LIPS. RN AWARE.
--- NOTE | 2021-09-20 14:24 | NURSING ---
Notified Dr. Green of sores on the front of patient's tongue. Received order for a viral culture swab for herpes. Order repeated back, will add order.
--- NOTE | 2021-09-20 14:36 | NURSING ---
BUTRANS PATCH VERIFIED TO PT LEFT LOWER POST SHOULDER.
[2021-09-20 16:00] VITALS: BP 101/50; PULSE 96; RESP 15; TEMP 36.6; O2SAT 98
[2021-09-20] MEDS: Jantoven 2 MG Tablet PO (17:48)
[2021-09-20] MEDS: Atorvastatin Calcium 80 MG Tablet PO (21:11)
[2021-09-21] MEDS: Polyethylene Glycol 3350 17 GM PACKET PO (05:04)
[2021-09-21] MEDS: Senna/Docusate Sodium 1 Tablet PO ×2 (05:05→17:48)
[2021-09-21] MEDS: SACUBITRIL/VALSARTAN 49-51 MG TABLET 1 EACH PO ×2 (05:05→17:47)
[2021-09-21] MEDS: Gabapentin 600 MG Tablet PO ×4 (05:06→20:07)
[2021-09-21] MEDS: Cefdinir 300 MG Capsule PO ×2 (05:06→17:48)
[2021-09-21] MEDS: Methocarbamol 500 MG Tablet PO ×3 (05:06→20:07)
[2021-09-21] MEDS: Pantoprazole Sodium 40 MG Tablet PO (05:06)
[2021-09-21] MEDS: HYDROcodone Bitartrate/Apap 5/325 Tablet PO ×2 (05:11→17:48)
[2021-09-21] MEDS: Zinc Oxide 30gm Tube 1 APPLIC TOPICAL ×2 (05:21→17:45)
[2021-09-21] MEDS: Nystatin Powder 15gm Bottle 1 APPLIC TOPICAL ×2 (05:21→17:44)
[2021-09-21 05:27] VITALS: BP 127/67; PULSE 101; O2SAT 98
[2021-09-21 07:40] VITALS: O2SAT 94
--- NOTE | 2021-09-21 07:55 | NURSING ---
Pt required mod to max cueing when meds crushed in applesauce placed in mouth. Would swallow when followed with a spoonful of water. Meds given over four attempts this morning and coughed during two of those episodes. Spoke w/ pharmacist, Ayaz, to question if there is an alternative for Ranexa and Isosorbide Mononitrate as pt's medications need to be crushed. Ayaz will change Pantoprazole to the therapeutic interchange of Prevacid where capsules can be opened and beads placed in applesauce. Pt is not to chew beads.
[2021-09-21] MEDS: Cyanocobalamin 500 MCG Tablet PO (09:16)
[2021-09-21] MEDS: Calcium Carb/Vitamin D 1 TABLET Tablet PO (09:16)
[2021-09-21] MEDS: Glucerna Shake 120 ML LIQUID PO ×2 (11:41→17:44)
[2021-09-21 14:18] VITALS: BP 121/44; PULSE 98; RESP 18; TEMP 36.6; O2SAT 98
[2021-09-21] MEDS: Jantoven 2 MG Tablet PO (17:48)
[2021-09-21] MEDS: Lansoprazole 15 MG Capsule.DR 30 MG PO (17:48)
[2021-09-21 19:52] VITALS: PULSE 99; RESP 16; O2SAT 94
[2021-09-21] MEDS: Atorvastatin Calcium 80 MG Tablet PO (20:07)
--- NOTE | 2021-09-21 21:26 | NURSING ---
Spoke w/ Dr. Green requesting to discontinue nonessential medications and supplements: Atorvastatin, Os Tommy, Vitamin B 12, Miralax, and Glucerna d/t dysphagia. Dr. Green is agreeable to discontinue above noted medications and supplements. Also updated per STEFANIA Glover, Butrans patch applied on 09/13, was not removed when new patch was applied on 09/20. Pharmacy contacted per Belen to inquire about additional side effects that may require additional monitoring. No new orders received at this time regarding Butran patch, and will continue to monitor pt as per plan of care.
--- NOTE | 2021-09-21 21:30 | NURSING ---
Addendum entered by Hermelinda Francisco 09/21/21 21:35: Old Butran patch was wasted into RX Destroyer. Original Note: While assessing patient, noted Emeka's Patch to posterior left shoulder dated 09/13/21. Patch removed d/t being outdated. Found new patch on patient's left deltoid dated 09/20/21. Old patch wasted with KIRIT Darby.
[2021-09-22] MEDS: Lansoprazole 15 MG Capsule.DR 30 MG PO (04:57)
[2021-09-22] MEDS: Senna/Docusate Sodium 1 Tablet PO (04:57)
[2021-09-22] MEDS: Gabapentin 600 MG Tablet PO ×2 (04:58→11:11)
[2021-09-22] MEDS: Methocarbamol 500 MG Tablet PO (04:58)
[2021-09-22] MEDS: Cefdinir 300 MG Capsule PO (04:58)
[2021-09-22] MEDS: SACUBITRIL/VALSARTAN 49-51 MG TABLET 1 EACH PO (04:58)
[2021-09-22] MEDS: HYDROcodone Bitartrate/Apap 5/325 Tablet PO (05:05)
[2021-09-22] MEDS: Zinc Oxide 30gm Tube 1 APPLIC TOPICAL (05:06)
[2021-09-22] MEDS: Nystatin Powder 15gm Bottle 1 APPLIC TOPICAL (05:09)
[2021-09-22 06:03] LABS: Hematocrit 25.3 % (37-47); Hemoglobin 7.5 g/dL (12.0-15.0); Mean Corp Hgb Conc 29.6 g/dL (32-36); Mean Corpuscular Hgb 31.6 pg (27.0-32.0); Mean Corpuscular Volume 106.8 fL (81-99); POSITIVE COUNT YES; POSITIVE DIFFERENTIAL YES; POSITIVE MORPHOLOGY YES; Platelet Count 139 K/mm3 (150-450); RBC Distribution Width CV 21.5 % (11.6-14.6); RBC Distribution Width SD 82.6 fl (35.1-43.9); Red Blood Count 2.37 M/mm3 (4.2-5.4); White Blood Count 71.7 K/mm3 (4.4-11.0)
[2021-09-22 06:14] LABS: Anion Gap 8 (5-15); BUN 20 mg/dL (7-18); BUN/Creat Ratio 17.2 RATIO (10-20); Calcium,Total 9.4 mg/dL (8.5-10.1); Chloride 108 mmol/L (98-107); Creatinine, Serum 1.16 mg/dL (0.55-1.02); EST Glomerular Filtration Rate 48 mL/min (>60); Est Glom Filt Rate - Afr Amer 57 mL/min (>60); Estimated Creatinine Clearance 33.65 ml/min; Glucose 119 mg/dL (74-106); Potassium 3.9 mmol/L (3.5-5.1); Sodium Level 140 mmol/L (136-145)
[2021-09-22 06:15] LABS: Differential Indicated MANUAL DIFF
--- NOTE | 2021-09-22 06:15 | NURSING ---
Addendum entered by Hermelinda Francisco 09/22/21 06:20: Message left for Dr. Green Original Note: Henrik from Lab called with critical result. WBC 71.7. Frank BETH aware.
[2021-09-22 06:18] LABS: International Normalized Ratio 2.4
[2021-09-22 06:43] LABS: Absolute Lymphocyte Count 5.74 X10^3/uL (0.83-4.51); Absolute Neutrophil Count 10.8 X10^3/uL (2.0-7.7); Blast 8 % (0-0); Lymphocyte 8 % (19-41); Metamyelocyte 5 % (0-1); Monocyte 4 % (0-10); Myelocyte 38 % (0-0); Neutrophil-Band 5 % (0-5); Neutrophil-Segmented 10 % (47-70); Promyelocyte 22 % (0-0); Total Cells Counted 100 (MANUAL DIFF)
[2021-09-22 06:44] LABS: Anisocytosis 3+; Platelet Estimate ADEQUATE (ADEQ); Red Cell Morphology NORM C+C NORMAL (NORM C&C)
--- NOTE | 2021-09-22 08:00 | CASEMGMT ---
Addendum entered by Phyllis Rojas 09/22/21 09:52: Spoke with dtr and she is agreeable to DC today to [facility]. Updated IDT, [facility] and hospice. Scheduled cot transport through [facility] for noon. PASRR completed. Plan: DC to [facility] 09/22, hospice Addendum entered by Phyllis Rojas 09/22/21 08:20: Spoke with [facility] and [facility] - both can accept for pt DC today, 09/22. Will await confirmation on wishes from dtr. Original Note: Social Work Per chart review, pt was accepted through [facility] and family agreed, but pt not eligible for IPU and to proceed with DC plan to [facility] SNF with hospice. Contacted dtr to f/u on plan, but no voicemail set up. Will continue to attempt. ARON Jin
[2021-09-22] MEDS: Tuberculin,Purif.prot.deriv. 50 TU/ML Vial 0.1 ML ID (08:51)
[2021-09-22 08:58] VITALS: PULSE 103; O2SAT 92
--- NOTE | 2021-09-22 10:00 | NURSING ---
Left message for [facility] to return call to see if pt has a defibrillator. Waiting for return call.
--- NOTE | 2021-09-22 10:19 | DS.PCM_ITS ---
Providers Date of Admission: 09/14/21 Primary Care Physician: Osiel Arzola Consultations 09/15/21 07:45 Consult: Oncology/Hematology Routine Consulting Provider: Esther Warner Reason for Consult: Anemia, Myelodysplastic syndrome, leukocytosis. EMERGENT Consult: No MD Notified: Yes Date Notified: 09/15/21 Time Notified: 09:43 Method of Notification: Verbal 09/22/21 07:22 Consult: Onc/Wound/binder stripper machine Routine Comment: Reason for Consult:: Possible John Ulcer to buttocks- please assess Comments:: new onset of skin breakdown since the end of last week Reason For Visit: FAILURE TO THRIVE, FALLS Diagnosis Discharge Diagnosis (1) MDS (myelodysplastic syndrome): Code(s): D46.9 - Myelodysplastic syndrome, unspecified Hospital Course Operations None Procedures None Summary of Care Provided Minutes Spent on Discharge: 35 Hospital Course: 80 year old female with below past medical history ho spitalized for acute anemia secondary to myelodysplastic syndrome, complicated by Klebsiella urinary tract infection, acute on chronic kidney disease stage 3b, admitted to TCU with debility, here for rehabilitation, strengthening, prior to discharge home with /family. Resident dying of progressive myelodysplastic syndrome. Discharge to [facility] 09/22/2021. Physical Exam Const alert and oriented x3 General Appearance: cooperative HEENT normocephalic Eyes PERRL and EOMs intact bilaterally Neck supple, no JVD and no carotid bruits Resp normal respiratory effort, normal air movement and clear to auscultation bilaterally Cardio regular rate and regular rhythm GI normal to inspection, nondistended, normoactive bowel sounds, non-tender and non-distended Extremity normal capillary refill General Extremity: Negative for edema Skin no rashes or lesions noted General Skin Exam: no breakdown Psych affect normal Appearance: appropriate Weight / BMI Weight Weight: 85.366 kg Body Mass Index (BMI) 31.3 ABG / Lab / Microbiology Data Result Diagrams: 09/22/21 05:10 09/22/21 05:10 Laboratory: Laboratory Results - last 24 hr 09/22/21 05:10: PT 25.0 H, INR 2.4 09/22/21 05:10: Sodium 140, Potassium 3.9, Chloride 108 H, Carbon Dioxide 24.0, Anion Gap 8, BUN 20 H, Creatinine 1.16 H, Estim Creat Clear Calc 33.65, Est GFR (MDRD) Af Amer 57 L, Est GFR (MDRD) Non-Af 48 L, BUN/Creatinine Ratio 17.2, Glucose 119 H, Calcium 9.4 09/22/21 05:10: WBC 71.7 H*, RBC 2.37 L, Hgb 7.5 L, Hct 25.3 L, MCV 106.8 H, MCH 31.6, MCHC 29.6 L, RDW Std Deviation 82.6 H, RDW Coeff of Maty 21.5 H, Plt Count 139 L, Neut % (Auto) Not Reportable, Absolute Neuts (auto) 10.8 H, Absolute Lymphs (auto) 5.74 H, Total Counted 100, Neutrophils % (Manual) 10 L, Band Neutrophils % 5, Lymphocytes % (Manual) 8 L, Monocytes % (Manual) 4, Metamyelocytes % 5 H, Myelocytes % 38 H, Promyelocytes % 22 H, Blast Cells % 8 H*, Diff Path Review May foll, Platelet Estimate ADEQUATE, RBC Morphology NORM C+C, Anisocytosis 3+ Microbiology: Microbiology 09/18/21 11:52 Nasal Secretion SARS-CoV-2 Antigen (Rapid) - Final D/C Instructions Discharge Diet: No restrictions Call your doctor if you observe: Fever of 101 or Higher, Inability to urinate, Shortness of breath, Dizziness, Fainting spells, Chest pain and Uncontrolled pain Additional Instructions: Discharge to [facility] 09/22/2021. Please Follow Up With: Gallo Patricia MD When: As needed. Meaningful Use Info Meaningful Use Diagnoses (Choose all that apply): None applicable Discharge Plan Admission Admit Date/Time: 09/14/21 16:51 Primary Reason for Your Visit: Debility. Attending Provider: Terrell Green Chi Primary Care Provider: Osiel Arzola Consulting Providers: Esther Warner Instructions Additional Instructions / Restrictions: Discharge to [facility] 09/22/2021. Discharge Orders/Prescriptions Prescriptions: Discontinued omeprazole 40 mg capsule,delayed release(DR/EC) 40 mg PO BID RF: 0 calcium carbonate-vitamin D3 1 EACH tablet 1 each PO DAILY RF: 0 gabapentin 600 mg tablet 600 mg PO 4X/DAY RF: 0 cyanocobalamin (vitamin B-12) 500 MCG tablet 500 mcg PO DAILY@0800 RF: 0 buprenorphine 15 mcg/hour Patch Weekly 1 patch TRANSDERMAL SA RF: 0 rosuvastatin 40 mg tablet 40 mg PO QHS RF: 0 spironolactone 25 mg tablet 25 mg PO DAILY RF: 0 metoprolol succinate 25 mg tablet extended release 24 hr 12.5 mg PO DAILY RF: 0 furosemide [Lasix] 40 mg tablet 120 mg PO DAILY RF: 0 hydrocodone-acetaminophen 1 TABLET tablet 1 tab PO BID RF: 0 coQ10 (ubiquinol) 100 mg Capsule 100 mg PO DAILY RF: 0 warfarin 2 mg tablet 2 mg PO DAILY RF: 0 methocarbamol 500 mg tablet 500 mg PO TID RF: 0 isosorbide mononitrate 60 mg tablet extended release 24 hr 60 mg PO DAILY RF: 0 cefdinir 300 mg capsule 300 mg PO BID RF: 0 Entresto 49-51 mg tablet 1 tab PO BID RF: 0 nitroglycerin 0.4 mg tablet, sublingual 0.4 mg SL Q5-15M PRN (Reason: chest pain) Qty: 25 RF: 1 ranolazine 500 mg tablet extended release 12 hr 500 mg PO BID Qty: 180 RF: 3 Hold Instructions: Per [facility] discharge Adult 50 Plus Probiotic 4 billion cell capsule 4,000 mmu cells PO DAILY RF: 0 Referrals / Follow Up: Osiel Arzola [Primary Care Provider] - Disposition Disposition (needs filled in before D/C Order can be placed): Hospice in Medical Facility
--- NOTE | 2021-09-22 10:25 | PCM.TXEXTCAR ---
Diet 09/14/21 17:29 Diet: Regular - No Added Salt Food consistency:: Pureed Liquid Consistency:: Honey/Moderately Thick Diet Comments: NO STRAWS; TOTAL FEED;ORAL CARE AFTER ALL PO INTAKE Routine Orders/Code Status Code Status: DNRCC-A (No intubation. ) Wound(s) coccyx: Wound Type: Shearing Dressing Change: Zinc cream Sacral: Wound Type: Shearing/Moisture? Dressing Change: Mepilex 09/21/21 Therapies Weight Bearing: Weight bearing as tolerated Problem/Diagnosis (1) MDS (myelodysplastic syndrome): Allergies/Procedures Done in Hospital Allergies doxycycline Allergy (Mild, Verified 09/11/21 19:15) Swelling allopurinol Allergy (Unknown, Verified 09/11/21 19:15) Angioedema Sulfa (Sulfonamide Antibiotics) Allergy (Verified 09/11/21 19:15) Rash tetracycline [Tetracycline] Allergy (Verified 09/11/21 19:15) difficulty breathing, rash metronidazole [From Flagyl] Adverse Reaction (Intermediate, Verified 09/11/21 19:15) GI severe nausea WILDA Inhibitors Adverse Reaction (Verified 08/23/21 23:33) cough cephalexin [From Keflex] Adverse Reaction (Verified 09/11/21 19:15) Nausea/Vom/Diarrhea dicyclomine Adverse Reaction (Verified 08/23/21 23:33) GI upset NSAIDS (Non-Steroidal Anti-Inflamma Adverse Reaction (Verified 09/11/21 19:15) GI bleeding oxycodone [From Percocet] Adverse Reaction (Verified 09/11/21 19:15) Upset Stomach Penicillins Adverse Reaction (Verified 09/11/21 19:15) Rash Procedures: None Type of Care/Length of Stay Estimated LOS: More Than 30 Days Type of Care Needed: Intermediate Rehab Potential: Poor Prognosis: Poor Additional Orders/Day of Discharge Additional Orders: [facility] Day of Discharge: 09/22/21 Dietary and Speech Recommendations Dietitian Recommendations/Changes: Will continue liberal Regular No Added Salt - consistency per GASOLINE ATTENDANT - can further restrict diet d/t DM/Cardiac hx once po intake consistently improved. Will continue 4 oz glucerna shake 4x/day w/ medpass for increased nutrition if consumed [ End ] Follow Up Care Please Follow Up With: Gallo Patricia MD Discharge Plan Admission Admit Date/Time: 09/14/21 16:51 Primary Reason for Your Visit: Debility. Attending Provider: Terrell Green Chi Primary Care Provider: Osiel Arzola Consulting Providers: Esther Warner Instructions Additional Instructions / Restrictions: Discharge to [facility] with Hospice 09/22/2021. Discharge Orders/Prescriptions Prescriptions: Discontinued omeprazole 40 mg capsule,delayed release(DR/EC) 40 mg PO BID RF: 0 calcium carbonate-vitamin D3 1 EACH tablet 1 each PO DAILY RF: 0 gabapentin 600 mg tablet 600 mg PO 4X/DAY RF: 0 cyanocobalamin (vitamin B-12) 500 MCG tablet 500 mcg PO DAILY@0800 RF: 0 buprenorphine 15 mcg/hour Patch Weekly 1 patch TRANSDERMAL SA RF: 0 rosuvastatin 40 mg tablet 40 mg PO QHS RF: 0 spironolactone 25 mg tablet 25 mg PO DAILY RF: 0 metoprolol succinate 25 mg tablet extended release 24 hr 12.5 mg PO DAILY RF: 0 furosemide [Lasix] 40 mg tablet 120 mg PO DAILY RF: 0 hydrocodone-acetaminophen 1 TABLET tablet 1 tab PO BID RF: 0 coQ10 (ubiquinol) 100 mg Capsule 100 mg PO DAILY RF: 0 warfarin 2 mg tablet 2 mg PO DAILY RF: 0 methocarbamol 500 mg tablet 500 mg PO TID RF: 0 isosorbide mononitrate 60 mg tablet extended release 24 hr 60 mg PO DAILY RF: 0 cefdinir 300 mg capsule 300 mg PO BID RF: 0 Entresto 49-51 mg tablet 1 tab PO BID RF: 0 nitroglycerin 0.4 mg tablet, sublingual 0.4 mg SL Q5-15M PRN (Reason: chest pain) Qty: 25 RF: 1 ranolazine 500 mg tablet extended release 12 hr 500 mg PO BID Qty: 180 RF: 3 Hold Instructions: Per [facility] discharge Adult 50 Plus Probiotic 4 billion cell capsule 4,000 mmu cells PO DAILY RF: 0 Referrals / Follow Up: Osiel Arzola [Primary Care Provider] - Disposition Disposition (needs filled in before D/C Order can be placed): Hospice in Medical Facility
--- NOTE | 2021-09-22 11:48 | NURSING ---
Received order from Dr. Green to have CHRISTEL turn off the patient's defibrillator. Will add order.
[2021-09-22 11:57] VITALS: BP 105/60; PULSE 108; RESP 17; TEMP 37.1; O2SAT 92
--- NOTE | 2021-09-22 12:12 | NURSING ---
CHRISTEL came down and turned off defibrillator per Dr. Green order. JOHANNA Diehl gave verbal consent to turn off defibrillator to Srheya Talbert RN and Beverley Owusu LPN
--- NOTE | 2021-09-22 14:35 | MDS.RN ---
Information for the mds was obtained from review of the clinical record, interview of resident, staff, and direct observation of resident's care. [employer], [employer], and billing dept. aware no PDPM codes generating when mds assessment finalized.
[2021-09-23 12:34] LABS: Pathologist Review Reviewed
== END 2021-09-22 12:20 | disposition hospice, inpatient (51) | DRG 690 ==
PROVIDERS: Admitting Provider Family Medicine Geriatric Medicine; Visit Provider Family Medicine Geriatric Medicine
DX: N30.00 Acute cystitis without hematuria (principal); C93.10 Chronic myelomonocytic leukemia not having achieved remission; I13.0 Hypertensive heart and chronic kidney disease with heart failure and stage 1 through stage 4 chronic kidney disease, or unspecified chronic kidney disease; I50.22 Chronic systolic (congestive) heart failure; L89.309 Pressure ulcer of unspecified buttock, unspecified stage; B96.1 Klebsiella pneumoniae [K. pneumoniae] as the cause of diseases classified elsewhere; D46.9 Myelodysplastic syndrome, unspecified; E11.22 Type 2 diabetes mellitus with diabetic chronic kidney disease; E11.40 Type 2 diabetes mellitus with diabetic neuropathy, unspecified; N18.32 Chronic kidney disease, stage 3b; D50.0 Iron deficiency anemia secondary to blood loss (chronic); I25.10 Atherosclerotic heart disease of native coronary artery without angina pectoris; I25.5 Ischemic cardiomyopathy; K21.9 Gastro-esophageal reflux disease without esophagitis; E53.8 Deficiency of other specified B group vitamins; E78.5 Hyperlipidemia, unspecified; M48.54XD Collapsed vertebra, not elsewhere classified, thoracic region, subsequent encounter for fracture with routine healing; Z86.711 Personal history of pulmonary embolism; Z79.899 Other long term (current) drug therapy; Z79.01 Long term (current) use of anticoagulants; Z86.718 Personal history of other venous thrombosis and embolism
CPT/HCPCS: 36415; 74018; 80048; 82962; 85025; 85610; 87255; 87426; 92507; 92610; 97110; 97162; 97166; 97530; 97535; 97802; J7030; A4216; J1940